=== PATIENT | female | born 1970 | race Caucasian/White ===

== ENCOUNTER 2020-07-12 12:01 | Outpatient (REF) | payer OTHER, SELFPAY | END 2020-07-12 12:02 | disposition home or self-care (01) | LOC: HO.LAB 12:01 | PROVIDERS: Visit Provider Hospitalist | DX: N39.0 Urinary tract infection, site not specified (principal); R30.0 Dysuria | CPT/HCPCS: 87086; 87088; 87186 ==

== ENCOUNTER 2020-10-20 10:01 | Outpatient (REF) | payer MEDICARE, SELFPAY ==
[2020-10-20 11:44] LABS: Hematocrit 39.6 % (37-47); Hemoglobin 13.1 g/dl (12.0-16.0); Mean Corpuscular HGB Conc 33.1 g/dl (31.0-35.0); Mean Corpuscular Hemoglobin 27.3 pg (27.0-33.0); Mean Corpuscular Volume 82.7 fL (80-98); Mean Platelet Volume 10.1 fL (9.4-12.3); Platelet Count 310 X10*3/uL (160-400); Red Blood Count 4.79 X10*6/uL (4.20-5.50); Red Cell Distribution Width 13.7 % (11.0-16.0); White Blood Count 7.2 X10*3/uL (4.8-10.8)
[2020-10-20 12:19] LABS: TSH reflex Free T4 1.37 uIU/mL (0.32-4.0)
[2020-10-20 12:24] LABS: Alanine Aminotransferase 26 U/L (0-31); Albumin Level 4.4 g/dL (3.5-5.0); Alkaline Phosphatase 83 U/L (39-117); Anion Gap 12 (12-20); Aspartate Amino Transferase 25 U/L (5-31); Bilirubin Direct 0.3 mg/dL (0.0-0.5); Bilirubin Total 1.1 mg/dL (0.0-1.0); Blood Urea Nitrogen 10 mg/dL (9-16); Calcium 9.1 mg/dL (8.4-10.2); Carbon Dioxide 31 mmol/L (22-29); Chloride 103 mmol/L (96-108); Cholesterol 203 mg/dL; Estimated Glomerular Filt Rate > 60; Glucose Fasting 109 mg/dL (60-99); HDL Cholesterol 55 mg/dL; LDL Cholesterol Calculated 127 mg/dl; Potassium 4.6 mmol/L (3.3-5.1); Sodium 141 mmol/L (135-145); Total Protein 6.9 g/dL (6.5-8.0); Triglycerides 105 mg/dL
[2020-10-20 12:55] LABS: Folate 14.7 ng/mL (> or = 4.0); Vitamin B12 810 pg/mL (200-900)
== END 2020-10-20 10:02 | disposition home or self-care (01) ==
LOC: HO.WFDLDS 10:01
PROVIDERS: Visit Provider Hospitalist
DX: Z00.00 Encounter for general adult medical examination without abnormal findings (principal); E53.8 Deficiency of other specified B group vitamins
CPT/HCPCS: 36415; 80048; 80061; 80076; 82607; 82746; 84443; 85027

== ENCOUNTER 2020-12-20 10:52 | Outpatient (REF) | payer MEDICARE, SELFPAY ==
[2020-12-24 15:12] LABS: Vitamin D 25-OH, D2 <4 ng/mL; Vitamin D 25-OH, D3 37 ng/mL; Vitamin D 25-OH, Total 37 ng/mL (30-100)
== END 2020-12-20 10:53 | disposition home or self-care (01) ==
LOC: HO.WFDLDS 10:52
PROVIDERS: Visit Provider Physician Assistant
DX: E55.9 Vitamin D deficiency, unspecified (principal); G89.29 Other chronic pain; M25.572 Pain in left ankle and joints of left foot; M25.512 Pain in left shoulder; M25.571 Pain in right ankle and joints of right foot; R82.998 Other abnormal findings in urine; E66.9 Obesity, unspecified
CPT/HCPCS: 36415; 82306; 87086

== ENCOUNTER 2021-02-13 15:36 | Outpatient (REF) | payer OTHER, SELFPAY ==
[2021-02-13 17:37] LABS: Alanine Aminotransferase 46 U/L (0-31); Albumin Level 4.2 g/dL (3.5-5.0); Alkaline Phosphatase 82 U/L (39-117); Anion Gap 13 (12-20); Aspartate Amino Transferase 42 U/L (5-31); Bilirubin Total 0.7 mg/dL (0.0-1.0); Blood Urea Nitrogen 8 mg/dL (9-16); C Reactive Protein 0.22 mg/dL (< or = 0.50); Calcium 9.6 mg/dL (8.4-10.2); Carbon Dioxide 29 mmol/L (22-29); Chloride 104 mmol/L (96-108); Estimated Glomerular Filt Rate > 60; Glucose Random 119 mg/dL (60-115); Potassium 4.3 mmol/L (3.3-5.1); Sodium 142 mmol/L (135-145); Total Protein 6.9 g/dL (6.5-8.0)
== END 2021-02-13 15:37 | disposition home or self-care (01) ==
LOC: HO.LAB 15:36
PROVIDERS: PCP Hospitalist; Referring Provider Hospitalist; Visit Provider Nurse Practitioner Family
DX: K50.90 Crohn's disease, unspecified, without complications (principal); K59.00 Constipation, unspecified; R79.89 Other specified abnormal findings of blood chemistry
CPT/HCPCS: 36415; 80053; 86140; 99202

== ENCOUNTER 2021-03-24 13:55 | Outpatient (REF) | payer OTHER, SELFPAY ==
[2021-03-24 16:01] LABS: C Reactive Protein 0.21 mg/dL (< or = 0.50); Gamma Glutamyl Transpeptidase 50 U/L (7-33); Lipase 20 U/L (8-78)
[2021-03-24 16:22] LABS: Ferritin 39 ng/mL (10-250)
[2021-03-27 03:28] LABS: HBc Num1 0.06 S/CO (0.00-0.79); HBsAGNum1 0.17 S/CO (0.00-0.99); Hepatitis B Core Antibody Nonreactive (Nonreactive); Hepatitis B Surface Antigen Negative (Negative); ~HepC Num1 0.06 S/CO (0.00-0.79); ~Hepatitis C Antibody Nonreactive (Nonreactive)
[2021-03-27 03:32] LABS: HBS Num1 0.24 mIU/mL (0-7.99); ~Hepatitis B Surface Antibody NONREACTIVE (Nonreactive)
[2021-03-27 12:36] LABS: Alpha Fetoprotein 2.1 ng/mL
[2021-03-28 15:57] LABS: Mitochondrial Antibodies NEGATIVE (NEGATIVE)
[2021-03-29 08:47] LABS: Hepatitis A Antibody IgM 0.14 Index (0-0.79); ~Hepatitis A Antibody IgM Nonreactive (Nonreactive)
[2021-03-30 10:47] LABS: Smooth Muscle Antibody <20 U (<20)
== END 2021-03-24 13:56 | disposition home or self-care (01) ==
LOC: HO.LNP 13:55
PROVIDERS: PCP Hospitalist; Visit Provider Nurse Practitioner Family
DX: R74.8 Abnormal levels of other serum enzymes (principal); K59.04 Chronic idiopathic constipation; R79.89 Other specified abnormal findings of blood chemistry; K58.9 Irritable bowel syndrome, unspecified; R94.5 Abnormal results of liver function studies; K21.9 Gastro-esophageal reflux disease without esophagitis
CPT/HCPCS: 82105; 82728; 82977; 83690; 86140; 86255; 86256; 86704; 86706; 86709; 86803; 87338; 87340; 99212

== ENCOUNTER 2021-04-18 07:17 | Outpatient (REF) | payer OTHER, SELFPAY ==
--- NOTE | ~2021-04-18 | US_ITS ---
EXAMINATION: US COMPLETE ABDOMEN WITH LIVER ELASTOGRAPHY CLINICAL INFORMATION: Abnormal liver function tests COMPARISON: Previous CT of the abdomen and pelvis and ultrasound of the abdomen July 2015 TECHNIQUE: Real-time imaging of the abdominal viscera. Noninvasive ultrasound liver fibrosis assessment is performed using Blayne ElastPQ point quantification shear wave elastography (pSWE) with a C5-2 MHz transducer. Multiple elastography samples are obtained. FINDINGS: PANCREAS: Not well visualized due to overlying bowel gas. ABDOMINAL AORTA: Not well visualized due to bowel gas. INFERIOR VENA CAVA: . Not well visualized due to bowel gas. LIVER: Liver echotexture is increased probably representing fatty infiltration. There are hypoechoic areas adjacent to the gallbladder and in the periportal region, a characteristic location of focal fatty sparing. No other focal liver lesion is seen. The liver is enlarged. There is no intrahepatic biliary duct dilatation. The right lobe measures 20 cm in length. The left lobe measures 11 cm in length. Portal flow is normal/hepatopedal Shear wave liver elastography median stiffness is 1.3 m/s (reference: normal median stiffness is 1.3 m/s or less). IQR/median stiffness to assess sampling precision is 0.15 (reference: good quality data set is IQR/median stiffness of 0.15 or less). GALLBLADDER: Normal. The gallbladder is physiologically distended without evidence of stones, sludge, polyps, wall thickening or pericholecystic fluid. COMMON BILE DUCT: Normal in caliber measuring 0.3 cm in diameter. RIGHT KIDNEY: There is a 2.6 cm cyst exophytic to the upper to midpole. No hydronephrosis. No renal calculi. The kidney measures 10 cm in maximum dimension. LEFT KIDNEY: Normal. No hydronephrosis. No renal calculi or focal parenchymal lesions. The kidney measures 11.4 cm in maximum dimension. SPLEEN: Normal. The spleen measures 10.4 cm in maximum dimension. FREE FLUID: None. US/US abdomen comp w elastography IMPRESSION: 1. Enlarged echogenic liver. Right renal cyst. Limited visualization of the pancreas, aorta and IVC. 2. Liver elastography: Adequate liver sampling. Normal liver stiffness. REFERENCE: Society of Radiologists in Ultrasound Liver Stiffness Thresholds (2019): LIVER STIFFNESS THRESHOLDS: *Liver Stiffness equal or less than 1.3 m/s: High probability of being normal. *Liver Stiffness less than 1.7 m/s: In the absence of other known clinical signs, rules out compensated advanced chronic liver disease. *Liver Stiffness 1.7-2.1 m/s: Suggestive of compensated advanced chronic liver disease but need further test for confirmation. *Liver Stiffness over 2.1 m/s: Rules in compensated advanced chronic liver disease. *Liver Stiffness over 2.4 m/s: Suggestive of clinically significant portal hypertension. QUALITY OF DATA SET: *IQR/Median value equal or less than 0.15 implies a quality data set. *IQR/Median value over 0.15 implies a poor quality data set. SIGNIFICANT CHANGE FROM PRIOR EXAM: Significant change if liver stiffness measurement is 10% or greater from prior exam. OTHER CONSIDERATIONS: The stage of liver fibrosis may be overestimated in the setting of acute hepatitis, liver inflammation, elevated liver function tests, hepatic vascular congestion, obstructive cholestasis, non-fasting state, and infiltrative diseases such as amyloidosis and lymphoma. In some patients with NAFLD, the liver stiffness thresholds for compensated advanced chronic liver disease may be lower. In causes other than viral hepatitis and NAFLD, liver stiffness thresholds are not well established.
== END 2021-04-18 07:18 | disposition home or self-care (01) ==
LOC: HO.US 07:17
PROVIDERS: PCP Hospitalist; Visit Provider Nurse Practitioner Family
DX: R79.89 Other specified abnormal findings of blood chemistry (principal)
CPT/HCPCS: 76705; 76981

== ENCOUNTER → 2021-04-28 13:08 | Outpatient (BNVA) | payer OTHER, SELFPAY | PROVIDERS: Referring Provider Hospitalist; Visit Provider Nurse Practitioner Family | DX: K59.04 Chronic idiopathic constipation (principal); R79.89 Other specified abnormal findings of blood chemistry | CPT/HCPCS: 99212 ==

== ENCOUNTER 2021-05-23 11:57 | Outpatient (REF) | payer OTHER, SELFPAY ==
[2021-05-23 14:25] LABS: Alanine Aminotransferase 54 U/L (0-31); Albumin Level 4.3 g/dL (3.5-5.0); Alkaline Phosphatase 79 U/L (39-117); Anion Gap 11 (12-20); Aspartate Amino Transferase 65 U/L (5-31); Bilirubin Total 0.8 mg/dL (0.0-1.0); Blood Urea Nitrogen 9 mg/dL (9-16); Calcium 9.9 mg/dL (8.4-10.2); Carbon Dioxide 29 mmol/L (22-29); Chloride 104 mmol/L (96-108); Estimated Glomerular Filt Rate > 60; Glucose Fasting 99 mg/dL (60-99); Iron 71 mcg/dL (30-160); Percent Iron Saturation 20 % (15-50); Potassium 4.3 mmol/L (3.3-5.1); Sodium 140 mmol/L (135-145); Total Iron Binding Capacity 357 mcg/dL (228-428); Unsaturated Iron Binding 286 ug/dL
[2021-05-23 14:47] LABS: Ferritin 64 ng/mL (10-250); TSH reflex Free T4 1.36 uIU/mL (0.32-4.0)
== END 2021-05-23 11:58 | disposition home or self-care (01) ==
LOC: HO.WFDLDS 11:57
PROVIDERS: Visit Provider Family Medicine
DX: Z00.00 Encounter for general adult medical examination without abnormal findings (principal); R42 Dizziness and giddiness; G25.81 Restless legs syndrome
CPT/HCPCS: 36415; 80053; 82728; 83540; 84443

== ENCOUNTER → 2021-06-28 12:57 | Outpatient (BNVA) | payer OTHER, SELFPAY | PROVIDERS: PCP Hospitalist; Visit Provider Nurse Practitioner Family | CPT/HCPCS: Q3014 ==

== ENCOUNTER 2021-08-08 17:08 | Outpatient (REF) | payer OTHER, SELFPAY ==
[2021-08-08 18:57] LABS: Influenza A PCR NEGATIVE (Negative); Influenza B PCR NEGATIVE (Negative); Resp Syncy Virus RNA Qual PCR NEGATIVE (Negative); SARS COV2 PCR INHOUSE POSITIVE (Negative)
== END 2021-08-08 17:09 | disposition home or self-care (01) ==
LOC: HO.LAB 17:08
PROVIDERS: Visit Provider Hospitalist
DX: B34.9 Viral infection, unspecified (principal); Z20.822 Contact with and (suspected) exposure to COVID-19
CPT/HCPCS: 0241U

== ENCOUNTER 2021-09-06 11:05 | Outpatient (REF) | payer OTHER, SELFPAY ==
[2021-09-06 14:11] LABS: Hematocrit 42.4 % (37.0-47.0); Mean Corpuscular Hemoglobin 27.9 pg (27.0-33.0); Mean Corpuscular Volume 84.5 fL (80.0-98.0); Platelet Count 305 X10*3/uL (160-400); Red Blood Count 5.02 X10*6/uL (4.20-5.50); Red Cell Distribution Width 13.9 % (11.0-16.0); White Blood Count 6.5 X10*3/uL (4.8-10.8)
[2021-09-06 14:42] LABS: Alanine Aminotransferase 43 U/L (0-31); Albumin Level 4.2 g/dL (3.5-5.0); Alkaline Phosphatase 75 U/L (39-117); Anion Gap 10 (12-20); Aspartate Amino Transferase 43 U/L (5-31); Bilirubin Total 0.8 mg/dL (0.0-1.0); Blood Urea Nitrogen 11 mg/dL (9-16); Calcium 9.8 mg/dL (8.4-10.2); Carbon Dioxide 31 mmol/L (22-29); Chloride 103 mmol/L (96-108); Cholesterol 192 mg/dL; Estimated Glomerular Filt Rate > 60; Glucose Fasting 103 mg/dL (60-99); HDL Cholesterol 48 mg/dL; LDL Cholesterol Calculated 121 mg/dl; Potassium 4.3 mmol/L (3.3-5.1); Sodium 140 mmol/L (135-145); Total Protein 7.1 g/dL (6.5-8.0); Triglycerides 118 mg/dL
[2021-09-06 15:04] LABS: TSH reflex Free T4 1.57 uIU/mL (0.32-4.0)
== END 2021-09-06 11:06 | disposition home or self-care (01) ==
LOC: HO.WFDLDS 11:05
PROVIDERS: Visit Provider Hospitalist
DX: Z00.00 Encounter for general adult medical examination without abnormal findings (principal); B34.9 Viral infection, unspecified
CPT/HCPCS: 36415; 80053; 80061; 84443; 85027

== ENCOUNTER 2021-10-02 21:07 | Emergency (ER) | payer OTHER, SELFPAY ==
--- NOTE | ~2021-10-02 | CT_ITS ---
EXAMINATION: CT ABDOMEN AND PELVIS WITHOUT CONTRAST CLINICAL INFORMATION: Flank pain COMPARISON: 07/12/2015 TECHNIQUE: Multidetector volumetric imaging was performed from the superior aspect of the liver through the pubic symphysis. Sagittal and coronal reformatted images were obtained on the technologist's workstation. This CT examination was performed using dose optimization techniques as appropriate, variously including the following: *Automated exposure control *Adjustment of mA and/or kV according to patient size (this includes techniques or standardized protocols for targeted exams where dose is matched to indication/reason for exam; i.e. extremities or head) *Use of iterative reconstruction technique DLP: 771 mGy-cm FINDINGS: LUNG BASES: The visualized lung bases are unremarkable. LIVER, GALLBLADDER, AND BILIARY TREE: The liver is normal in size, shape, and attenuation. No focal hepatic lesion or biliary ductal dilatation is present. The gallbladder is unremarkable. PANCREAS: Partial fatty atrophy is noted. SPLEEN: Unremarkable. ADRENAL GLANDS: Unremarkable. KIDNEYS AND URETERS: The kidneys are normal in size, shape, and attenuation. No hydronephrosis, hydroureter, or calculi seen. No perinephric stranding. BLADDER: Unremarkable. GASTROINTESTINAL TRACT: Colonic diverticulosis is noted. The small and large bowel are otherwise unremarkable without evidence of obstruction or pericolonic inflammatory change. The appendix is unremarkable. No free fluid or free air is seen. ABDOMINAL WALL: No significant hernia is appreciated. LYMPH NODES: Normal. VASCULAR: Mild scattered atherosclerotic calcifications are present. PELVIC VISCERA: Unremarkable. OSSEOUS STRUCTURES: Syndesmophytes in the visualized spine are suspicious for sequelae of ankylosing spondylitis. CT/CT abdomen pelvis wo con IMPRESSION: No acute findings identified in the abdomen/pelvis. Colonic diverticulosis. Fleischner guidelines were followed.
--- NOTE | ~2021-10-02 | CT_ITS ---
EXAMINATION: CT HEAD WITHOUT CONTRAST CLINICAL INFORMATION: Worst headache of life COMPARISON: None TECHNIQUE: Contiguous axial imaging was performed from the skull base to vertex without intravenous administration of contrast. This CT examination was performed using dose optimization techniques as appropriate, variously including the following: *Automated exposure control *Adjustment of mA and/or kV according to patient size (this includes techniques or standardized protocols for targeted exams where dose is matched to indication/reason for exam; i.e. extremities or head) *Use of iterative reconstruction technique DLP: 631 mGy-cm FINDINGS: There is no evidence of acute intracranial hemorrhage or territorial infarction. No abnormal mass effect or midline shift is seen. Burden to white matter differentiation is well preserved. No extra-axial fluid collections are identified. The ventricles are normal in size. There is no abnormal attenuation within the brain parenchyma. The osseous structures and soft tissues are normal. There is partial opacification of the left sphenoid sinus. The mastoid air cells are well-aerated. CT/CT head/brain wo con IMPRESSION: No acute intracranial pathology.
[2021-10-02 21:20] VITALS: BP 142/94; BP 146/80; PULSE 92; PULSE 96; RESP 18; TEMP 37.1; O2SAT 95; O2SAT 98; BMI 35.6
--- NOTE | 2021-10-02 23:17 | ED_ITS ---
HPI - Back Pain/Injury General Chief Complaint: Back Pain/Injury Stated Complaint: back pain Time Seen by Provider: 10/02/21 23:16 Source: patient and EMS Mode of arrival: EMS Limitations: other (Patient is a poor historian.) History of Present Illness HPI Narrative: This is a 51-year-old female past medical history significant for restless leg syndrome, vitamin D deficiency, vitamin B12 deficiency, psoriasis, frequent UTIs presenting to the emergency department with right-sided flank pain, pleauritic chest pain and headache X1 week. Patient tells me that she is having right- sided flank pain that at times radiates to her right abdomen, she tells me that the pain is constant in nature, and fluctuates in intensity. She also complains of pain in her chest/lungs with inspiration, better with expiration. She also reports a headache with associated ?fogginess ? no vision changes, no dizziness. Patient tells me she has not had a headache like this before. Patient denies head trauma, patient denies being on blood thinners. She tells me that this all started suddenly about a week ago and has been lingering ever since.Patient denies numbness, tingling, weakness, sensory motor deficits, saddle paresthe christopher, urinary/bowel incontinence/retention, shortness of breath, fevers, chills, nausea, vomiting, urinary frequency, urgency, dysuria. I asked patient why she decided to come in today she tells me that she called the ambulance because her heart was feeling funny, and her head was foggy. MD elicited complaint: back pain and other (Pleuritic chest pain, headache) Onset (ago): week(s) (1) Timing: constant Severity: severe Pain scale (0-10): 10 Similar Symptoms Previously: No Quality: stabbing Location: right flank Radiation: none Exacerbating factors: none Relieving factors: none Associated symptoms: denies other symptoms Work related injury: No Related Data Home Medications Medication Instructions Recorded Confirmed azelastine 137 mcg (0.1 %) nasal 2 spray INTRANASAL BID 07/12/20 08/31/21 spray aerosol calcium carbonate 168 mg calcium 168 mg PO TID 07/12/20 08/31/21 (420 mg) chewable tablet (Alcalak) montelukast 10 mg tablet 10 mg PO DAILY 07/12/20 08/31/21 omega 9-hwy-ffd-fish oil 60 mg-90 1 cap PO DAILY 07/12/20 08/31/21 mg-500 mg capsule (Fish Oil) pravastatin 80 mg tablet 80 mg PO BEDTIME 07/12/20 08/31/21 lamotrigine 100 mg tablet 100 mg PO DAILY 10/19/20 08/31/21 loratadine 10 mg tablet 10 mg PO DAILY 10/19/20 08/31/21 lorazepam 0.5 mg tablet 0.5 mg PO BID PRN 10/19/20 08/31/21 melatonin 3 mg tablet 3 - 6 mg PO BEDTIME PRN 10/19/20 08/31/21 tizanidine 2 mg capsule 2 mg PO TID PRN 10/19/20 08/31/21 fluticasone 500 mcg-salmeterol 50 1 ea INHALATION BID 12/20/20 08/31/21 mcg/dose blistr powdr for inhalation ipratropium bromide 17 0 mcg INHALATION 12/20/20 08/31/21 mcg/actuation HFA aerosol inhaler ipratropium bromide 42 mcg (0.06 INTRANASAL BID 12/20/20 08/31/21 %) nasal spray cranberry extract 250 mg capsule 250 mg PO DAILY 03/31/21 08/31/21 Previous Rx's Medication Instructions Recorded humidifiers #1 ea 10/21/20 miscellaneous medical supply 1 ea MISCELLANEOUS .PRN #1 ea 10/21/20 sennosides 8.6 mg tablet (Natural 8.6 mg PO BEDTIME PRN #30 tab 03/24/21 Senna Laxative) clotrimazole 1 % vaginal cream 1 appful VAGINAL BEDTIME 7 Days 03/31/21 #45 g mesalamine 1.2 gram tablet,delayed 2.4 g PO DAILY 90 Days #180 tab 04/28/21 release (Lialda) albuterol sulfate 2.5 mg (3 mL) INHALATION Q4-6H PRN 05/23/21 30 Days #180 ml albuterol sulfate 90 mcg/actuation 2 puff INHALATION QID PRN #6.7 g 05/23/21 aerosol inhaler epinephrine 0.3 mg/0.3 mL 0.3 mg (0.3 mL) IM Q10M PRN #2 ea 05/23/21 injection, auto-injector (EpiPen 2-Isma) gabapentin 300 mg capsule 300 mg PO BEDTIME 30 Days #30 cap 05/23/21 omeprazole 40 mg capsule,delayed 40 mg PO DAILY 90 Days #90 cap 05/31/21 release budesonide 32 mcg/actuation nasal 2 spray INTRANASAL DAILY 90 Days 07/06/21 spray #3 inhaler docusate sodium 100 mg capsule 100 mg PO BID 90 Days #180 cap 07/19/21 cholecalciferol (vitamin D3) 50 50 mcg PO DAILY 90 Days #90 tab 09/11/21 mcg (2,000 unit) tablet cyanocobalamin (vitamin B-12) 1,000 mcg PO DAILY 30 Days #90 tab 09/11/21 1,000 mcg tablet Allergies Allergy/AdvReac Type Severity Reaction Status Date / Time Penicillins [PENICILLINS] Allergy Severe ANAPHYLAXIS Verified 10/02/21 21:20 simvastatin Allergy Mild weird Verified 10/02/21 21:20 feeling ibuprofen AdvReac Intermediate stomach Verified 10/02/21 21:20 upset, irritates Bryant's Review of Systems Review of Systems: Constitutional : No Weight loss, No Fever, No Chills, No Fatigue, No Malaise ENT/Mouth : No sore throat, No Rhinorrhea Eyes: No Eye Pain, No Swelling, No Redness Cardiovascular : + Chest Pain, No SOB, No Dyspnea on Exertion, No Orthopnea, No Edema, No Palpitations Respiratory : No Cough, No Sputum, No Wheezing Gastrointestinal : No Nausea, No Vomiting, No Diarrhea, No Constipation, + abdominal Pain, No Hematochezia, No Melena Genitourinary : No Dysuria, No Urinary Frequency, No Hematuria, Musculoskeletal : No joint pain, No Myalgias, No Joint Swelling Skin : No Skin Lesions, No rash Neuro : No Weakness, No Numbness, No Dizziness, Headache Psych : No Anxiety/Panic, No Depression All other systems reviewed and are negative Yes all other systems are reviewed and are negative [facility] Past Medical History Attestation statement: The following information was validated with the patient. Source: old records reviewed and nursing notes reviewed Medical History Dysuria Unspecified asthma, uncomplicated Surgical History No pertinent past surgical history Family History Family History Father Suicide Mother Hypertension Diabetes Paternal Grandmother Stroke Brother In good health Sister In good health Social History Social History Housing: Other Housing Other:: mobile home Alcohol intake: current Alcohol intake frequency: does not drink Patient Tobacco Use Status: Never used Tobacco e-Cigarette/Vaping Use: Never Used Second Hand Smoke Exposure: Yes Use of substances other than those prescribed or required for medical reasons: No Advance Directives: No service: No Current occupational status: disabled Cognitive needs: No Hearing needs: No Vision needs: No Physical Exam Vital Signs: Vital Signs: Last Vital Signs Temp 98.7 F 10/02/21 21:20 Pulse 84 10/02/21 23:41 Resp 16 10/02/21 23:41 BP 138/80 10/02/21 23:41 Pulse Ox 95 10/02/21 21:20 BMI result Body Mass Index 35.6 VSS Appearance: Alert.? Oriented X3.? No acute distress.? Head: Normocephalic, atraumatic, no step-offs or deformities Eyes: Pupils equal, round and reactive to light.? ENT: Pharynx normal.? Neck: Normal inspection.? Neck supple.? CVS: Normal heart rate and rhythm.? Pulses normal.? Respiratory: No respiratory distress.? Breath sounds normal.? Abdomen: Soft and nontender.? Skin: Skin warm and dry.? Normal skin color.? Normal skin turgor.? Extremities: No lower extremity edema.? No calf ttp. 5/5 strength to bilateral upper and lower extremities Back: No midline tenderness, no C-spine tenderness, full range of motion, no CVA tenderness bilaterally Neuro: Oriented X 3.? No motor deficit.? No sensory deficit. CN 2-12 intact . Normal [id number]-[id number], [id number], normal tandem gait. Course Reevaluation(s) Reevaluation #1: CBC within normal limits. D-dimer negative, unlikely this is a PE. Chemistry with no acute electrolyte abnormalities, transaminases noted to be chronically elevated. Troponin negative less than 3, unlikely ACS. EKG pending at this time. Urine toxicology negative UA with no acute infection. COVID negative. This is likely a muscle strain of the lower back. Unlikely PE, ACS, kidney stones, UTI. Patient will be discharged home on muscle relaxers, lidocaine patch. She should follow-up with her PCP or return with new or worsening symptoms. Time: 00:11 Reevaluation #2: EKG nonischemic. CT of the head pending. Time: 00:39 Reevaluation #3: CT of the head negative. At this time likely a right lumbar muscle strain. Will discharge patient home on cyclobenzaprine and lidocaine patches. Workup negative for ICH, CVA, ACS. Time: 00:41 MDM - Back Pain/Injury MDM Narrative Medical decision making narrative: 2334 51 yo f presents with headache, pleuritic chest pain, right flank pain radiating to the abdomen x1 week. Physical examination benign Patient's history and physical examination not consistent with ACS, PE, CVA, posterior infarct. Plan basic labs, cardiac workup. Medical Records Attestation: I reviewed the patient's medical records. Lab Data Attestation: I reviewed the patient's lab results. Result diagrams: 10/02/21 23:26 10/02/21 23:26 Labs: Lab Results 10/02/21 10/02/21 10/02/21 Range/Units 23:26 23:26 23:26 WBC 7.1 (4.8-10.8) X10*3/uL RBC 4.82 (4.20-5.50) X10*6/uL Hgb 13.7 (12.0-16.0) g/dl Hct 40.7 (37.0-47.0) % MCV 84.4 (80.0-98.0) fL MCH 28.4 (27.0-33.0) pg MCHC 33.7 (31.0-35.0) g/dl RDW 13.7 (11.0-16.0) % Plt Count 316 (160-400) X10*3/uL MPV 9.4 (9.4-12.3) fL Absolute Nucleated RBC 0.000 (0.0-0.012) X10*3/uL Nucleated RBC % (auto) 0.0 (0.0-0.2) /100WBC D-Dimer High Sensitivty NG/ML Sodium 140 (135-145) mmol/L Potassium 4.1 (3.3-5.1) mmol/L Chloride 104 (96-108) mmol/L Carbon Dioxide 26 (22-29) mmol/L Anion Gap 14 (12-20) BUN 9 (9-16) mg/dL Creatinine 0.71 (0.5-1.4) mg/dL Estim Creat Clear Calc 96.8 Estimated GFR > 60 Random Glucose 102 (60-115) mg/dL Calcium 9.5 (8.4-10.2) mg/dL Total Bilirubin 0.4 (0.0-1.0) mg/dL AST 53 H (5-31) U/L ALT 52 H (0-31) U/L Alkaline Phosphatase 79 (39-117) U/L Troponin I High Sens < 3.5 (<3.5-17.0) ng/L Total Protein 7.2 (6.5-8.0) g/dL Albumin 4.1 (3.5-5.0) g/dL Urine Color Urine Appearance Urine pH (5.0-8.0) Ur Specific [place] (1.005-1.025) Urine Protein (NEG-TRACE) MG/DL Urine Glucose (UA) (NEG) MG/DL Urine Ketones (NEG) MG/DL Urine Blood (NEG) Urine Nitrite (NEG) Ur Leukocyte Esterase (NEG) Urine RBC (0) /HPF Urine WBC (0-4) /HPF Ur Squamous Epith Cells /LPF Urine Bacteria /LPF Urine Opiates Screen (Not Detect) Urine Fentanyl Screen (Not Detect) Ur Barbiturates Screen (Not Detect) Ur Phencyclidine Scrn (Not Detect) Ur Amphetamines Screen (Not Detect) U Benzodiazepines Scrn (Not Detect) Urine Cocaine Screen (Not Detect) U Marijuana (THC) Screen (Not Detect) 10/02/21 10/02/21 10/02/21 Range/Units 23:26 23:28 23:28 WBC (4.8-10.8) X10*3/uL RBC (4.20-5.50) X10*6/uL Hgb (12.0-16.0) g/dl Hct (37.0-47.0) % MCV (80.0-98.0) fL MCH (27.0-33.0) pg MCHC (31.0-35.0) g/dl RDW (11.0-16.0) % Plt Count (160-400) X10*3/uL MPV (9.4-12.3) fL Absolute Nucleated RBC (0.0-0.012) X10*3/uL Nucleated RBC % (auto) (0.0-0.2) /100WBC D-Dimer High Sensitivty < 150 NG/ML Sodium (135-145) mmol/L Potassium (3.3-5.1) mmol/L Chloride (96-108) mmol/L Carbon Dioxide (22-29) mmol/L Anion Gap (12-20) BUN (9-16) mg/dL Creatinine (0.5-1.4) mg/dL Estim Creat Clear Calc Estimated GFR Random Glucose (60-115) mg/dL Calcium (8.4-10.2) mg/dL Total Bilirubin (0.0-1.0) mg/dL AST (5-31) U/L ALT (0-31) U/L Alkaline Phosphatase (39-117) U/L Troponin I High Sens (<3.5-17.0) ng/L Total Protein (6.5-8.0) g/dL Albumin (3.5-5.0) g/dL Urine Color YELLOW Urine Appearance CLEAR Urine pH 6.0 (5.0-8.0) Ur Specific [place] 1.010 (1.005-1.025) Urine Protein NEG (NEG-TRACE) MG/DL Urine Glucose (UA) NEG (NEG) MG/DL Urine Ketones NEG (NEG) MG/DL Urine Blood NEG (NEG) Urine Nitrite NEG (NEG) Ur Leukocyte Esterase 1+ H (NEG) Urine RBC 1-4 (0) /HPF Urine WBC 1-4 (0-4) /HPF Ur Squamous Epith Cells 1+ /LPF Urine Bacteria 1+ /LPF Urine Opiates Screen Not Detected (Not Detect) Urine Fentanyl Screen Not Detected (Not Detect) Ur Barbiturates Screen Not Detected (Not Detect) Ur Phencyclidine Scrn Not Detected (Not Detect) Ur Amphetamines Screen Not Detected (Not Detect) U Benzodiazepines Scrn Not Detected (Not Detect) Urine Cocaine Screen Not Detected (Not Detect) U Marijuana (THC) Screen Not Detected (Not Detect) ECG Data Attestation: I personally reviewed and interpreted this ECG as follows: ECG interpretation date: 10/03/21 ECG interpretation time: 00:37 Prior ECG tracings: available for review Interpretation: Ventricular rate of 83, MO normal, QRS normal, QT/QTC normal. EKG shows normal sinus rhythm, no ST elevations or inversions concerning for ischemia. No significant changes when compared to EKG from August 2015. Critical Care Time Critical Care Time Critical Care Time: No Discharge Plan Discharge Clinical Impression: Back strain, Headache, Chest pain not due to acute coronary syndrome Patient Disposition: Home, Self-Care Instructions: Acute Headache (DC), Back Pain (ED), Chest Wall Pain (ED) Additional Instructions: Take your medications as prescribed. If you were prescribed antibiotics today, it is important that you take your medication to their entirety, do not skip any doses, do not finish them early. Follow-up with your primary care provider this week. Return to the emergency department with new or worsening symptoms. In case of emergency call 911 Prescriptions: No Action miscellaneous medical supply Misc 1 ea miscellaneous .PRN Qty: 1 0RF (DME) humidifiers Misc See Rx Instructions .ROUTE .MEDSUPPLY Qty: 1 0RF Rx Instructions: As directed docusate sodium 100 mg capsule 100 mg PO BID 90 Days Qty: 180 1RF cholecalciferol (vitamin D3) 50 mcg (2,000 unit) tablet 50 mcg PO DAILY 90 Days Qty: 90 3RF cyanocobalamin (vitamin B-12) 1,000 mcg tablet 1,000 mcg PO DAILY 30 Days Qty: 90 3RF azelastine 137 mcg (0.1 %) aerosol,spray 2 spray intranasal BID 0RF pravastatin 80 mg tablet 80 mg PO BEDTIME 0RF montelukast 10 mg tablet 10 mg PO DAILY 0RF omega 1-nhq-iok-fish oil [Fish Oil] 60-90-500 mg capsule 1 cap PO DAILY 0RF Alcalak 168 mg calcium (420 mg) tablet,chewable 168 mg PO TID 0RF lorazepam 0.5 mg tablet 0.5 mg PO BID PRN (Reason: anxiety) 0RF tizanidine 2 mg capsule 2 mg PO TID PRN (Reason: muscle spasm) 0RF lamotrigine 100 mg tablet 100 mg PO DAILY 0RF melatonin 3 mg tablet 3 - 6 mg PO BEDTIME PRN (Reason: insomnia) 0RF loratadine 10 mg tablet 10 mg PO DAILY 0RF fluticasone propion-salmeterol 500-50 mcg/dose blister with device 1 ea inhalation BID 0RF ipratropium bromide 42 mcg (0.06 %) spray,non-aerosol intranasal BID 0RF Atrovent HFA 17 mcg/actuation HFA aerosol inhaler 0 mcg inhalation 0RF cranberry extract 250 mg capsule 250 mg PO DAILY 0RF Rx Instructions: administer with a meal clotrimazole 1 % cream 1 appful vaginal BEDTIME 7 Days Qty: 45 0RF albuterol sulfate 2.5 mg /3 mL (0.083 %) solution for nebulization 2.5 mg inhalation Q4-6H PRN (Reason: shortness of breath or wheezing) 30 Days Qty: 180 3RF gabapentin 300 mg capsule 300 mg PO BEDTIME 30 Days Qty: 30 1RF albuterol sulfate 90 mcg/actuation HFA aerosol inhaler 2 puff inhalation QID PRN (Reason: wheezing) Qty: 6.7 4RF epinephrine [EpiPen 2-Isma] 0.3 mg/0.3 mL auto-injector 0.3 mg IM Q10M PRN (Reason: anaphylaxis) Qty: 2 2RF Rx Instructions: for 2 doses omeprazole 40 mg capsule,delayed release(DR/EC) 40 mg PO DAILY 90 Days Qty: 90 1RF budesonide 32 mcg/actuation spray,non-aerosol 2 spray intranasal DAILY 90 Days Qty: 3 2RF sennosides [Natural Senna Laxative] 8.6 mg tablet 8.6 mg PO BEDTIME PRN (Reason: constipation) Qty: 30 1RF mesalamine [Lialda] 1.2 gram tablet,delayed release (DR/EC) 2.4 g PO DAILY 90 Days Qty: 180 2RF Referrals: Jordana Arvizu NP [Primary Care Provider] - 2 days Stand Alone Forms: Work/School Release
--- NOTE | 2021-10-02 23:34 | ECG_ITS ---
Test Reason : PASS OUT Blood Pressure : / mmHG Vent. Rate : 083 BPM Atrial Rate : 083 BPM P-R Int : 168 ms QRS Dur : 098 ms QT Int : 406 ms P-R-T Axes : 033 015 035 degrees QTc Int : 477 ms Normal sinus rhythm Normal ECG When compared with ECG of 29-AUG-2015 14:39, No significant change was found Referred By: Daniel Baker Electronically Signed By:Turner Sandhu
--- NOTE | 2021-10-02 23:35 | PC.NURSE ---
pt a&o, no sob at this time. pt denies any urination discomfort, denies falls. reports having pain in right lower back that radiated to her head. provider into assess pt. Labs and Iv placed. Ua collected and sent.
[2021-10-02 23:40] LABS: Hematocrit 40.7 % (37.0-47.0); Hemoglobin 13.7 g/dl (12.0-16.0); Mean Corpuscular HGB Conc 33.7 g/dl (31.0-35.0); Mean Corpuscular Hemoglobin 28.4 pg (27.0-33.0); Mean Corpuscular Volume 84.4 fL (80.0-98.0); Mean Platelet Volume 9.4 fL (9.4-12.3); Platelet Count 316 X10*3/uL (160-400); Red Blood Count 4.82 X10*6/uL (4.20-5.50); Red Cell Distribution Width 13.7 % (11.0-16.0); White Blood Count 7.1 X10*3/uL (4.8-10.8)
[2021-10-02 23:41] VITALS: BP 138/80; PULSE 84; RESP 16
[2021-10-02 23:45] LABS: Appearance Urine CLEAR; Color Urine YELLOW; Glucose Urine UA NEG (NEG); Leukocyte Esterase Urine 1+ (NEG); Nitrite Urine NEG (NEG); UACC Culture Trigger YES; Urine Blood NEG (NEG); Urine Ketones NEG (NEG); Urine Protein NEG (NEG-TRACE)
[2021-10-02 23:51] LABS: D Dimer High Sensitivity < 150 NG/ML
[2021-10-02 23:51] LABS: Bacteria Urine 1+ /LPF; Squamous Epithelial Cell Urine 1+ /LPF; UACC CULT YES
[2021-10-02 23:57] LABS: Amphetamine Screen Urine Not Detected (Not Detect); Barbiturates, Urine Not Detected (Not Detect); Benzodiazepines Screen Urine Not Detected (Not Detect); Cannabinoid Screen Urine Not Detected (Not Detect); Cocaine Screen Urine Not Detected (Not Detect); Fentanyl, urine Not Detected (Not Detect); Opiate Screen Urine Not Detected (Not Detect); Phencyclidine Screen Urine Not Detected (Not Detect)
[2021-10-02 23:59] LABS: Alanine Aminotransferase 52 U/L (0-31); Albumin Level 4.1 g/dL (3.5-5.0); Alkaline Phosphatase 79 U/L (39-117); Anion Gap 14 (12-20); Aspartate Amino Transferase 53 U/L (5-31); Bilirubin Total 0.4 mg/dL (0.0-1.0); Blood Urea Nitrogen 9 mg/dL (9-16); Calcium 9.5 mg/dL (8.4-10.2); Carbon Dioxide 26 mmol/L (22-29); Chloride 104 mmol/L (96-108); Creatinine Clr Calc Pharmacy 96.8; Estimated Glomerular Filt Rate > 60; Glucose Random 102 mg/dL (60-115); Potassium 4.1 mmol/L (3.3-5.1); Sodium 140 mmol/L (135-145); Total Protein 7.2 g/dL (6.5-8.0)
[2021-10-03] LABS: Troponin-I High Sensitivity < 3.5 ng/L (<3.5-17.0)
--- NOTE | 2021-10-03 01:01 | PC.NURSE ---
pt oob ambulating to CT. pt able to ambulate with a steady gait.
[2021-10-03 02:11] VITALS: RESP 16
== END 2021-10-03 02:12 | disposition home or self-care (01) ==
PROVIDERS: Physician Assistant; Emergency Provider Internal Medicine; PCP Hospitalist
DX: S39.012A Strain of muscle, fascia and tendon of lower back, initial encounter (principal); X58.XXXA Exposure to other specified factors, initial encounter; R07.89 Other chest pain; R51.9 Headache, unspecified; R10.9 Unspecified abdominal pain; Y93.9 Activity, unspecified; Y92.9 Unspecified place or not applicable; Y99.9 Unspecified external cause status; Z86.16 Personal history of COVID-19; Z79.02 Long term (current) use of antithrombotics/antiplatelets; Z79.899 Other long term (current) drug therapy
CPT/HCPCS: 36415; 70450; 74176; 80053; 80307; 81001; 84484; 85027; 85379; 87086; 93005; 99284

== ENCOUNTER → 2021-10-24 14:22 | Outpatient (BNVA) | payer OTHER, SELFPAY | PROVIDERS: PCP Hospitalist; Referring Provider Hospitalist; Visit Provider Nurse Practitioner Family | DX: Z01.818 Encounter for other preprocedural examination (principal); K50.10 Crohn's disease of large intestine without complications; K59.04 Chronic idiopathic constipation | CPT/HCPCS: 99212 ==

== ENCOUNTER 2022-03-01 09:53 | Outpatient (REF) | payer OTHER, SELFPAY ==
[2022-03-01 11:44] LABS: MANUAL DIFF FLAG NO
[2022-03-01 11:50] LABS: Basophils Absolute Auto 0.1 X10*3/uL (0.0-0.2); Basophils Percent Auto 0.9 % (0-2); Eosinophils Absolute Auto 0.1 X10*3/uL (0.0-0.4); Eosinophils Percent Auto 1.9 % (0-4); Hematocrit 41.2 % (37.0-47.0); Hemoglobin 13.7 g/dl (12.0-16.0); Imm Gran Abs Auto 0.02 X10*3/uL (0.00-0.03); Imm Gran Pct Auto 0.3 % (0.0-0.4); Lymphocytes Percent Auto 28.8 % (20-40); Mean Corpuscular HGB Conc 33.3 g/dl (31.0-35.0); Mean Corpuscular Hemoglobin 28.2 pg (27.0-33.0); Mean Corpuscular Volume 84.8 fL (80.0-98.0); Mean Platelet Volume 9.8 fL (9.4-12.3); Monocytes Absolute Auto 0.6 X10*3/uL (0.1-1.2); Monocytes Percent Auto 9.1 % (2-11); Neutrophils Absolute Auto 4.1 x10*3/uL (2.0-8.3); Platelet Count 303 X10*3/uL (160-400); Red Blood Count 4.86 X10*6/uL (4.20-5.50); Red Cell Distribution Width 13.4 % (11.0-16.0)
[2022-03-01 12:15] LABS: D Dimer High Sensitivity < 150 NG/ML
[2022-03-01 12:21] LABS: Alanine Aminotransferase 66 U/L (0-31); Albumin Level 4.3 g/dL (3.5-5.0); Alkaline Phosphatase 82 U/L (39-117); Anion Gap 13 (12-20); Aspartate Amino Transferase 48 U/L (5-31); Bilirubin Total 0.7 mg/dL (0.0-1.0); Blood Urea Nitrogen 12 mg/dL (9-16); Calcium 9.4 mg/dL (8.4-10.2); Carbon Dioxide 27 mmol/L (22-29); Chloride 102 mmol/L (96-108); Estimated Glomerular Filt Rate > 60; Glucose Random 102 mg/dL (60-115); Potassium 4.3 mmol/L (3.3-5.1); Sodium 138 mmol/L (135-145)
[2022-03-01 12:41] LABS: TSH reflex Free T4 2.29 uIU/mL (0.32-4.0)
== END 2022-03-01 09:54 | disposition home or self-care (01) ==
LOC: HO.WFDLDS 09:53
PROVIDERS: Visit Provider Family Medicine
DX: Z00.00 Encounter for general adult medical examination without abnormal findings (principal); R07.89 Other chest pain; R00.2 Palpitations; R74.8 Abnormal levels of other serum enzymes
CPT/HCPCS: 36415; 80053; 84443; 85025; 85379

== ENCOUNTER → 2022-03-16 11:51 | Outpatient (REF) | payer OTHER, SELFPAY ==
--- NOTE | 2022-03-16 11:53 | HM_ITS ---
* Total monitoring time 2 days and 14 hours. * Underlying rhythm is sinus. * Average rate 89/Min. Range 64 to 128/Min. * About 18% of the time, rate > 100/Min. * No atrial fibrillation or flutter or AV blocks or pauses. * No significant ectopy or other arrhythmias. * No patient events. MTDD
== END ==
LOC: HO.CARD 11:51
PROVIDERS: PCP Family Medicine
DX: R07.89 Other chest pain (principal); R00.2 Palpitations
CPT/HCPCS: 93242

== ENCOUNTER 2022-03-19 08:59 | Outpatient (REF) | payer OTHER, SELFPAY ==
--- NOTE | ~2022-03-19 | XR_ITS ---
EXAMINATION: XR CHEST CLINICAL INFORMATION: Chest pain COMPARISON: None TECHNIQUE: 2 views of the chest were obtained. FINDINGS: The cardiac and mediastinal contours are normal. The lung volumes are low. The lungs are clear. There is no pleural effusion or pneumothorax. There is curvature of the thoracic spine to the right and mild degenerative changes of the spine. XR/XR chest 2V IMPRESSION: No evidence for acute disease in the chest.
== END 2022-03-19 09:00 | disposition home or self-care (01) ==
LOC: HO.XRAY 08:59
PROVIDERS: PCP Family Medicine; Visit Provider Family Medicine
DX: R07.89 Other chest pain (principal)
CPT/HCPCS: 71046

== ENCOUNTER → 2022-04-10 13:42 | Outpatient (BNVA) | payer OTHER, SELFPAY | PROVIDERS: PCP Family Medicine; Visit Provider Nurse Practitioner Family | DX: Z12.11 Encounter for screening for malignant neoplasm of colon (principal); K50.10 Crohn's disease of large intestine without complications; K21.9 Gastro-esophageal reflux disease without esophagitis; K59.04 Chronic idiopathic constipation | CPT/HCPCS: 99212 ==

== ENCOUNTER → 2022-05-01 13:42 | Outpatient (BNVA) | payer OTHER, SELFPAY | PROVIDERS: PCP Family Medicine; Referring Provider Family Medicine; Visit Provider Internal Medicine | DX: R00.2 Palpitations (principal); R00.0 Tachycardia, unspecified | CPT/HCPCS: 99202 ==

== ENCOUNTER 2022-05-09 10:12 | Outpatient (REF) | payer OTHER, SELFPAY | END 2022-05-09 10:13 | disposition home or self-care (01) | LOC: HO.LAB 10:12 | PROVIDERS: PCP Family Medicine; Visit Provider Physician Assistant | DX: Z13.89 Encounter for screening for other disorder (principal) ==

== ENCOUNTER → 2022-05-22 12:27 | Outpatient (REF) | payer OTHER, SELFPAY ==
--- NOTE | 2022-05-22 12:30 | CA_ITS ---
Transthoracic Echocardiogram Patient (Last, First, Middle): Josselin Harrington E Gender: Female Date of : 1970 Age: 52 Procedure Date: 05/22/2022 Procedure Type: Transthoracic Echocardiogram Location: OP Height: 149.86 cm Weight: 88.45 kg BSA: 1.82 m2 Heart Rate: 95 bpm BP: 152 / 80 mmHg Chicken Raiser: SB Referring MD: Johnny Sanches MD Symptoms: R00.2 - Palpitations Study Quality: Fair but adequate ECG Rhythm: Sinus Conclusions: - The left ventricular systolic function is normal. The calculated ejection fraction is 62% by biplane method. - No obvious valvular pathology seen on this study. Findings Left Ventricle Normal left ventricular cavity size. The left ventricular systolic function is normal. The calculated ejection fraction is 62% by biplane method. There is no evidence of regional wall motion abnormalities. Diastolic function is normal for age. There is mild septal and mild basal asymmetric hypertrophy. Right Ventricle Normal right ventricular cavity size and systolic function. Atria Both atria are normal in size. Aortic Valve The aortic valve structure and function is likely normal. There is no aortic valve stenosis. There is no aortic valve regurgitation. Mitral Valve The mitral valve appears normal. There is no mitral valve regurgitation. There is no mitral valve stenosis. Pulmonic Valve The pulmonic valve is likely normal. Tricuspid Valve There is no tricuspid valve regurgitation. Tricuspid regurgitation envelope is inadequate for calculation of right ventricular systolic pressure. Great Vessels The asc aorta is normal in size. Venous The inferior vena cava was not well visualized. Pericardium/Pleural There is no evidence of pericardial effusion. Prior Study Comparison No significant change compared to prior study dated: 08/30/2015. Recommendations, Care & Conclusions No obvious valvular pathology seen on this study. Measurements 2D Linear Measurements IVSd: 1.12 0.6-0.9/0.6-1.0 cm LVIDd: 3.94 3.9-5.3/4.2-5.9 cm LVIDd Index: 2.16 2.4-3.2/2.2-3.1 cm/m2 LVIDs: 2.69 2.0-3.6 cm LVPWd: 1.07 0.7-1.1 cm LA Diam: 2.40 2.7-3.8/3.0-4.0 cm LAIDs Index: 1.32 1.5-2.3 cm/m2 LV Mass: 175.95 67-162/88-224 g LV Mass Index: 96.68 43-95/49-115 g/m2 LVOT Diam: 2.10 3.0+(-)1.3 cm 2D Systolic Function EF 4C: 48.10 >55% EF 2C: 71.80 >55% EF BiP: 62.30 >55% Mitral Valve MV Pk E: 0.63 MV PK A: 1.17 MV Decel Time: 146.00 E/A: 0.50 E'Lateral: 6.53 E'Medial: 7.18 E/E' Med: 8.80 E/E' Lat: 9.70 PHT: 43.00 MVA PHT: 5.12 Decel [place]: 4.34 Aortic Valve AoV Pk Jun: 1.28 AoV Pk Grad: 7.00 SAM: 2.95 LVOT LVOT Pk Jun: 1.09 LVOT Mn Jun: 0.70 LVOT VTI: 0.19 LVOT Pk Grad: 5.00 LVOT Mn Grad: 2.00 LVOT Diam: 2.10 LVOT Area: 3.46 Diastolic Function MV Pk E: 0.63 MV Pk A: 1.17 E/A: 0.50 E'Medial: 7.18 E/E' Med: 8.80 E' Laterial: 6.53 E/E' Lat: 9.70 Right Ventricle TAPSE (mm): 17.40 TVS' Jun: 13.30 Great Vessels Aorta Sinus of Valsalva: 3.30 2.0-3.5 cm Ao Asc: 3.30 2.1-3.4 cm Pulmonary Valve PV Pk Jun: 1.13 Peak PV Grad: 5.00 Updated in Other Vendor System with Status of Final Johnny Sanches MD electronically signed on 05/22/2022 4:34:54 PM with status of Final
[2022-05-22 14:17] LABS: MANUAL DIFF FLAG NO
[2022-05-22 14:28] LABS: Basophils Percent Auto 0.6 % (0-2); Eosinophils Absolute Auto 0.1 X10*3/uL (0.0-0.4); Eosinophils Percent Auto 1.6 % (0-4); Hematocrit 41.3 % (37.0-47.0); Hemoglobin 14.1 g/dl (12.0-16.0); Imm Gran Abs Auto 0.02 X10*3/uL (0.00-0.03); Imm Gran Pct Auto 0.3 % (0.0-0.4); Lymphocytes Absolute Auto 2.2 X10*3/uL (1.2-4.9); Lymphocytes Percent Auto 30.8 % (20-40); Mean Corpuscular HGB Conc 34.1 g/dl (31.0-35.0); Mean Corpuscular Hemoglobin 28.1 pg (27.0-33.0); Mean Corpuscular Volume 82.4 fL (80.0-98.0); Mean Platelet Volume 9.6 fL (9.4-12.3); Monocytes Absolute Auto 0.5 X10*3/uL (0.1-1.2); Monocytes Percent Auto 7.4 % (2-11); Neutrophils Absolute Auto 4.2 x10*3/uL (2.0-8.3); Neutrophils Percent Auto 59.3 % (45-73); Platelet Count 300 X10*3/uL (160-400); Red Blood Count 5.01 X10*6/uL (4.20-5.50); Red Cell Distribution Width 13.4 % (11.0-16.0)
[2022-05-24 12:31] LABS: Complement C3 161 mg/dL (83-193)
[2022-05-24 13:46] LABS: Immunoglobulin G Subclass 1 435 mg/dL (382-929); Immunoglobulin G Subclass 2 315 mg/dL (241-700); Immunoglobulin G Subclass 3 61 mg/dL (22-178); Immunoglobulin G Subclass 4 26.3 mg/dL (4-86); Immunoglobulin G Total 872 mg/dL (600-1640)
[2022-05-24 14:07] LABS: Immunoglobulin A 482 mg/dL (47-310); Immunoglobulin M 103 mg/dL (50-300)
[2022-05-24 17:06] LABS: Immunoglobulin E 40 kU/L (<OR=114)
[2022-05-25 19:42] LABS: Complement Total CH50 >60 U/mL (31-60)
== END ==
LOC: HO.CARD 12:27
PROVIDERS: Visit Provider Internal Medicine
DX: R00.2 Palpitations (principal)
CPT/HCPCS: 36415; 82784; 82785; 85025; 86003; 86160; 86162; 93306

== ENCOUNTER 2022-05-29 09:23 | Outpatient (REF) | payer OTHER, SELFPAY ==
[2022-05-29 11:20] LABS: Appearance Urine Clear; Color Urine Yellow; Glucose Urine UA Negative (Negative); Leukocyte Esterase Urine Small (1+) (Negative); Nitrite Urine Negative (Negative); PH 6.5 (5.0-9.0); Specific Gravity - Urine <= 1.005 (1.005-1.025); UMIC TRIGGER UA YES; Urine Blood Negative (Negative); Urine Ketones Negative (Negative); Urine Protein Negative (Neg-Trace)
[2022-05-29 11:30] LABS: Bacteria Urine None Seen (None Seen); Hyaline Casts Urine 0-2 /LPF (0-2); RBC Urine 0-2 /HPF (0-2); Squamous Epithelial Cell Urine 0-2 /HPF (0-2); WBC Urine 0-5 /HPF (0-5)
[2022-05-29 11:49] LABS: Alanine Aminotransferase 45 U/L (0-31); Albumin Level 4.1 g/dL (3.5-5.0); Alkaline Phosphatase 78 U/L (39-117); Anion Gap 13 (12-20); Aspartate Amino Transferase 44 U/L (5-31); Bilirubin Total 0.6 mg/dL (0.0-1.0); Blood Urea Nitrogen 6 mg/dL (9-16); Calcium 9.4 mg/dL (8.4-10.2); Carbon Dioxide 29 mmol/L (22-29); Chloride 103 mmol/L (96-108); Cholesterol 204 mg/dL; Estimated Glomerular Filt Rate > 60; Glucose Fasting 117 mg/dL (60-99); HDL Cholesterol 47 mg/dL; LDL Cholesterol Calculated 126 mg/dl; Potassium 4.2 mmol/L (3.3-5.1); Sodium 141 mmol/L (135-145); Total Protein 6.9 g/dL (6.5-8.0); Triglycerides 156 mg/dL
[2022-05-29 11:59] LABS: TSH reflex Free T4 1.82 uIU/mL (0.32-4.0)
== END 2022-05-29 09:24 | disposition home or self-care (01) ==
LOC: HO.WFDLDS 09:23
PROVIDERS: Visit Provider Family Medicine
DX: Z00.00 Encounter for general adult medical examination without abnormal findings (principal); R35.0 Frequency of micturition
CPT/HCPCS: 36415; 80053; 80061; 81001; 84443; 87086

== ENCOUNTER → 2022-06-20 13:25 | Outpatient (BNVA) | payer OTHER, SELFPAY | PROVIDERS: PCP Family Medicine; Referring Provider Family Medicine; Visit Provider Internal Medicine | DX: R00.2 Palpitations (principal); R00.0 Tachycardia, unspecified | CPT/HCPCS: 99212 ==

== ENCOUNTER 2022-06-26 09:37 | Day surgery (SDC) | payer OTHER, SELFPAY ==
[2022-06-19 15:27] VITALS: BMI 39.6
--- NOTE | 2022-06-25 11:03 | HO.ANESPROP2 ---
Documented by User: Camelia Bullock NP 06/25/22 11:04 HPI - Anesthesia Eval Consult details Narrative: 52yo F for Upper Endoscopy and Colonoscopy Cardiac cleared [facility] Active Problems Active Problems: All Active Problems (Updated 06/06/22 @ 14:36 by Layton Ward MD) Ankylosing spondylitis (Acute) Urinary frequency (Acute) Right foot pain (Acute) Sinus tachycardia (Acute) Bee sting reaction (Acute) Back pain (Acute) Pain of right heel (Acute) Elevated liver enzymes (Acute) Chest discomfort (Acute) Intermittent palpitations (Acute) Hx: UTI (urinary tract infection) (Acute) Elevated blood pressure reading (Acute) Chest pain (Acute) Asthma (Acute) Cough (Acute) Bronchitis (Acute) Allergies (Acute) Yeast infection of the skin (Acute) Sinus congestion (Acute) Aphthous ulcer (Acute) Sore throat (Acute) Chronic idiopathic constipation (Acute) Crohn disease (Acute) Back strain (Acute) Personal history of COVID-19 (Acute) Bilateral otitis media (Acute) Viral illness (Acute) Psoriasis (Acute) Obesity (BMI 30-39.9) (Acute) Hx of bronchitis (Acute) Left lower quadrant pain (Acute) Cellulitis, leg (Acute) Dizziness (Acute) Right leg pain (Acute) Restless leg syndrome (Acute) Thrush (Acute) Furuncles (Acute) Leukocytes in urine (Acute) Chronic ankle pain, bilateral (Acute) Vitamin D deficiency (Acute) B12 deficiency (Acute) Obesity (BMI 30-39.9) (Acute) Well adult exam (Acute) Left shoulder pain (Acute) Tonsil stone (Acute) Urinary tract infection (Acute) Dysuria (Acute) Past Medical History Medical History Chronic idiopathic constipation Crohn disease Dysuria Unspecified asthma, uncomplicated Family History Family History Father Suicide Mother Hypertension Diabetes Paternal Grandmother Stroke Brother In good health Sister In good health Surgical History Surgical History History of esophagogastroduodenoscopy (EGD) Hx of colonoscopy No pertinent past surgical history Social History Social History Housing: Other Housing Other:: mobile home Alcohol intake: current Alcohol intake frequency: does not drink Patient Tobacco Use Status: Never used Tobacco e-Cigarette/Vaping Use: Never Used Second Hand Smoke Exposure: Yes Use of substances other than those prescribed or required for medical reasons: No Are you DNR?: No Advance Directives: No Advance Directives Information Provided: Yes service: No Current occupational status: disabled Current occupational exposures/hazards: No Cognitive needs: No Hearing needs: No Vision needs: No Meds Allergies Allergy/AdvReac Type Severity Reaction Status Date / Time Penicillins [PENICILLINS] Allergy Severe ANAPHYLAXIS Verified 06/20/22 13:38 simvastatin Allergy Mild weird Verified 06/20/22 13:38 feeling ibuprofen AdvReac Intermediate stomach Verified 06/20/22 13:38 upset, irritates Chrohn's Home Medications Medication Instructions Recorded Confirmed Last Taken Type azelastine 137 mcg (0.1 %) nasal 2 spray intranasal BID 07/12/20 06/26/22 06/26/22 History spray aerosol calcium carbonate 168 mg calcium 168 mg PO TID 07/12/20 06/26/22 Unknown History (420 mg) chewable tablet ([place]) montelukast 10 mg tablet 10 mg PO DAILY 07/12/20 06/26/22 Unknown History lamotrigine 100 mg tablet 100 mg PO DAILY 10/19/20 06/26/22 06/26/22 History lorazepam 0.5 mg tablet 0.5 mg PO BID PRN anxiety 10/19/20 06/26/22 Unknown History cranberry extract 250 mg capsule 250 mg PO DAILY 03/31/21 06/26/22 Unknown History adalimumab 40 mg/0.4 mL 40 mg subcut Q2W 10/24/21 06/26/22 Unknown History subcutaneous pen kit (Humira(CF) Pen) Exam Exam Date and Time: June 25, 2022 1103 Height,Weight and Vital Signs: Height 4 ft 11 in Weight 88.904 kg Pertinent Lab Results Pertinent Lab Results: Laboratory Tests 05/22/22 05/29/22 14:14 09:35 WBC 7.0 Hgb 14.1 Hct 41.3 Plt Count 300 Sodium 141 Potassium 4.2 Chloride 103 Carbon Dioxide 29 BUN 6 L Creatinine 0.68 Narrative Narrative: -05/2022 12 lead EKG shows sinus rhythm at 81/Min; possible left atrial enlargement and incomplete right bundle branch pattern. In the recent Holter monitor, underlying rhythm was sinus.? About 18% the time, there was sinus tachycardia but no other arrhythmias. In the echocardiogram, LVEF 62%.? No wall motion abnormalities.? Mild septal hypertrophy.? Normal diastolic function.? Right ventricle size function unremarkable.? Valves were unremarkable. Assessment and Plan Assessment Anesthesia Assessment: Chart Reviewed Documented by User: Luis Henriquez MD 06/26/22 10:49 [facility] Past Medical History Medical History Chronic idiopathic constipation Crohn disease Dysuria Unspecified asthma, uncomplicated Family History Family History Father Suicide Mother Hypertension Diabetes Paternal Grandmother Stroke Brother In good health Sister In good health Family history of problems with anesthesia: No Surgical History Surgical History History of esophagogastroduodenoscopy (EGD) Hx of colonoscopy No pertinent past surgical history History of Problems with Anesthesia: No Social History Social History Housing: Other Housing Other:: mobile home Alcohol intake: current Alcohol intake frequency: does not drink Patient Tobacco Use Status: Never used Tobacco e-Cigarette/Vaping Use: Never Used Second Hand Smoke Exposure: Yes Use of substances other than those prescribed or required for medical reasons: No Are you DNR?: No Advance Directives: No Advance Directives Information Provided: Yes service: No Current occupational status: disabled Current occupational exposures/hazards: No Cognitive needs: No Hearing needs: No Vision needs: No Meds Allergies Allergy/AdvReac Type Severity Reaction Status Date / Time Penicillins [PENICILLINS] Allergy Severe ANAPHYLAXIS Verified 06/20/22 13:38 simvastatin Allergy Mild weird Verified 06/20/22 13:38 feeling ibuprofen AdvReac Intermediate stomach Verified 06/20/22 13:38 upset, irritates Chrohn's Home Medications Medication Instructions Recorded Confirmed Last Taken Type azelastine 137 mcg (0.1 %) nasal 2 spray intranasal BID 07/12/20 06/26/22 06/26/22 History spray aerosol calcium carbonate 168 mg calcium 168 mg PO TID 07/12/20 06/26/22 Unknown History (420 mg) chewable tablet ([place]) montelukast 10 mg tablet 10 mg PO DAILY 07/12/20 06/26/22 Unknown History lamotrigine 100 mg tablet 100 mg PO DAILY 10/19/20 06/26/22 06/26/22 History lorazepam 0.5 mg tablet 0.5 mg PO BID PRN anxiety 10/19/20 06/26/22 Unknown History cranberry extract 250 mg capsule 250 mg PO DAILY 03/31/21 06/26/22 Unknown History adalimumab 40 mg/0.4 mL 40 mg subcut Q2W 10/24/21 06/26/22 Unknown History subcutaneous pen kit (Humira(CF) Pen) Exam Airway Mallampati Class: II TM Dist: >3cm Neck ROM: Full Heart: rrr Lungs: clear Assessment and Plan Final Anesthetic Review Family History of Problems with Anesthesia: No History of Problems with Anesthesia: No NPO: Yes ASA Class: III Final Preanesthetic Review: No Changes in Pt Med Stat, Meds/Allgs Chart Reviewed, Consent Obtained/Reviewed and Anes Risks/Benef Reviewed Patient Risk: Intermediate Anesthetic Plan Anesthetic Plan: MAC: Disposition: Standard PACU
--- NOTE | 2022-06-26 09:54 | MHC.SHP ---
Pre-Procedural Eval Section A Date of Service: 06/26/22 Section B Chief Complaint: GERD, screening Details of Present Illness: hx of crohns disease Relevant Family History (Specify if Yes): No Relevant Social History: None Present Medications: see Short Stay Collaborative assessment Medical History: Significant History (Chronic idiopathic constipation Crohn disease Dysuria Unspecified asthma, uncomplicated) History of Previous Operations: Relevant previous surgery/procedure and date(s) (History of esophagogastroduodenoscopy (EGD) Hx of colonoscopy) Allergies: Allergies Allergy/AdvReac Type Severity Reaction Status Date / Time Penicillins [PENICILLINS] Allergy Severe ANAPHYLAXIS Verified 06/20/22 13:38 simvastatin Allergy Mild weird Verified 06/20/22 13:38 feeling ibuprofen AdvReac Intermediate stomach Verified 06/20/22 13:38 upset, irritates Bryant's Review of Systems Sugical H&P ROS: Negative: Constitution, Cardiovascular, Respiratory, Neurological, Psychiatric, Hem-Onc, Allergic/Immunologic, Gastrointestinal, Genitourinary, Musculoskeletal, Integumentary, Endocrine and Eyes/Ears/Nose/Throat Exam Surgical H&P Exam: Normal: HEENT, Normal: Heart, Normal: Lungs, Normal: Extremities, Normal: Abdomen, Normal: Skin and Normal: Neurological Exam Comment: reduced spinal motion due to Plan Diagnosis/Plan: Unchanged I have reviewed the history and physical and performed a pertinent physical examination on my patient. No changes have occurred unless specified.
[2022-06-26 09:55] VITALS: BMI 39.6
--- NOTE | 2022-06-26 10:23 | PC.NURSE ---
patient very anxious and refusing resp treatment at this time. insp/exp wheezing treatment. blew nose and wheezing subsided. ll congestion still noted.
[2022-06-26 10:26] VITALS: BP 142/91; PULSE 85; RESP 16; TEMP 36.4; O2SAT 97
[2022-06-26] MEDS: Albuterol Sulfate (0.083%) 2.5 MG/3 ML VIAL.NEB INHALE (10:32)
[2022-06-26 10:34] VITALS: PULSE 83; RESP 17; O2SAT 99
--- NOTE | 2022-06-26 10:36 | W.PM.OPN ---
Operative Note Operative Note Date of Service: 06/26/22 Narrative: Operative Information Procedure Description: EGD, Colonoscopy Indication: GERD, screening with crohns history Anesthesia: MAC FLEXIBLE TRANSORAL UPPER GASTROINTESTINAL ENDOSCOPY AND COLONOSCOPY PROCEDURE NOTE UPPER ENDOSCOPY Consent: Indications for the procedure and potential complications of bleeding, perforation, reaction to medications and missed diagnosis were discussed with the patient and informed consent was obtained. Instrument: Olympus GIF H 190 J mid size upper endoscope Monitoring: Vital signs and clinical assessment, continuous EKG monitoring, Pulse oximetry, Carbon Dioxide monitoring and blood pressure monitoring were done throughout the procedure. Procedure: The patient was placed in the left lateral decubitis position and pre-procedure medications were administered and a bite block was placed. The endoscope was inserted into the mouth and advanced under direct vision to the third part of duodenum. A careful inspection was made as the upper endoscope was withdrawn including a retroflexed examination of the proximal stomach; Findings and interventions are described below. Findings: Larynx:normal Esophagus: GE junction at 35 cm, diaphragm hiatus at 35 cm, normal mucosa, bx taken from esophagus and GEJ Stomach: Normal mucosa. Biopsies were obtained. Grade 2 flap valve on retroflexed examination of the cardia. Duodenum: Normal bulb and descending duodenum, bx taken Intervention: Biopsies as noted above COLONOSCOPY Instrument: Olympus variable stiffness pediatric scope 190L Colonoscopy Monitoring: Vital signs and clinical assessment, continuous EKG monitoring, Pulse oximetry, Carbon Dioxide monitoring and blood pressure monitoring were done throughout the procedure. Colon withdrawal time was 14 minutes. Procedure: The patient was placed in the left lateral decubitis position and pre-procedure medications were administered. After a digital rectal examination of the ano-rectum, the video colonoscope was inserted into the rectum and advanced through the colon to the cecum/TI. The colonoscope was slowly withdrawn in a retrograde panoramic fashion and the colon mucosa was carefully examined including a retroflexed view of the rectum. Findings and interventions are described below. Procedure Difficulty:moderate due to looping and diverticulosis Findings: Terminal Ileum-normal, bx taken Random bx taken from right, transverse, left and rectum areas in separate jars Cecum:normal Ascending Colon: normal Transverse Colon -normal Descending Colon:normal Sigmoid Colon:severe diverticulosis with thickened mucosa and luminal narrowing, 10-12 mm sessile polyp removed with cold snare with x 1 clip applied for hemostasis Rectum: Retroflexion with small internal hemorrhoids, grade I Anorectum - normal Colon preparation: [place] Bowel Preparation Scale Right colon; 2 Transverse colon: 2 Left colon; 2 (0 = Unprepared colon segment with mucosa not seen due to solid stool that cannot be cleared. 1 = Portion of mucosa of the colon segment seen, but other areas of the colon segment not well seen due to staining, residual stool and/or opaque liquid. 2 = Minor amount of residual staining, small fragments of stool and/or opaque liquid, but mucosa of colon segment seen well. 3 = Entire mucosa of colon segment seen well with no residual staining, small fragments of stool or opaque liquid) Impression and Post Procedure Diagnosis: Endoscopy Findings: normal Colonoscopy Findings: polyp internal hemorrhoids diverticular disease Plan: Await Pathology results Repeat Colonoscopy in 1-2 years due to crohns history or earlier if clinically indicated High fiber diet leaflet avoid straining at stool, epsom salts and sitz bath, anusol supps or cream Above findings were reviewed with the patient and relevant handouts were provided if indicated.
[2022-06-26 11:51] VITALS: BP 109/71; PULSE 91; RESP 11; TEMP 37.1; O2SAT 97
[2022-06-26 12:06] VITALS: BP 104/69; PULSE 83; RESP 16; TEMP 36.6; O2SAT 95
== END 2022-06-26 12:49 | disposition home or self-care (01) ==
PROVIDERS: PCP Family Medicine; Visit Provider Internal Medicine Gastroenterology
PROC: (CPT 45385; principal; 2022-06-26 11:10)
DX: Z12.11 Encounter for screening for malignant neoplasm of colon (principal); D12.5 Benign neoplasm of sigmoid colon; K57.30 Diverticulosis of large intestine without perforation or abscess without bleeding; K56.2 Volvulus; K64.0 First degree hemorrhoids; K50.10 Crohn's disease of large intestine without complications; K59.04 Chronic idiopathic constipation; K21.9 Gastro-esophageal reflux disease without esophagitis; J45.909 Unspecified asthma, uncomplicated; Z79.899 Other long term (current) drug therapy; Z88.0 Allergy status to penicillin
CPT/HCPCS: 45385; 45380; 43239; 88305; 88342; 94640

== ENCOUNTER → 2022-07-10 13:15 | Outpatient (BNVA) | payer OTHER, SELFPAY | PROVIDERS: PCP Family Medicine; Visit Provider Nurse Practitioner Family | DX: D12.5 Benign neoplasm of sigmoid colon (principal); K50.10 Crohn's disease of large intestine without complications; K59.04 Chronic idiopathic constipation; R74.8 Abnormal levels of other serum enzymes; Z98.890 Other specified postprocedural states | CPT/HCPCS: 99212 ==

== ENCOUNTER 2022-08-24 12:31 | Outpatient (REF) | payer OTHER, SELFPAY ==
[2022-08-24 13:39] LABS: MANUAL DIFF FLAG NO
[2022-08-24 13:47] LABS: Basophils Absolute Auto 0.1 X10*3/uL (0.0-0.2); Basophils Percent Auto 0.8 % (0-2); Eosinophils Absolute Auto 0.1 X10*3/uL (0.0-0.4); Eosinophils Percent Auto 1.8 % (0-4); Hematocrit 42.3 % (37.0-47.0); Hemoglobin 13.9 g/dl (12.0-16.0); Imm Gran Abs Auto 0.03 X10*3/uL (0.00-0.03); Imm Gran Pct Auto 0.4 % (0.0-0.4); Lymphocytes Absolute Auto 2.1 X10*3/uL (1.2-4.9); Lymphocytes Percent Auto 28.8 % (20-40); Mean Corpuscular HGB Conc 32.9 g/dl (31.0-35.0); Mean Corpuscular Hemoglobin 27.9 pg (27.0-33.0); Mean Corpuscular Volume 84.8 fL (80.0-98.0); Mean Platelet Volume 10.1 fL (9.4-12.3); Monocytes Absolute Auto 0.6 X10*3/uL (0.1-1.2); Monocytes Percent Auto 8.6 % (2-11); Neutrophils Absolute Auto 4.3 x10*3/uL (2.0-8.3); Neutrophils Percent Auto 59.6 % (45-73); Platelet Count 314 X10*3/uL (160-400); Red Blood Count 4.99 X10*6/uL (4.20-5.50); Red Cell Distribution Width 13.5 % (11.0-16.0); White Blood Count 7.2 X10*3/uL (4.8-10.8)
[2022-08-24 14:20] LABS: Alanine Aminotransferase 53 U/L (0-31); Albumin Level 4.1 g/dL (3.5-5.0); Alkaline Phosphatase 80 U/L (39-117); Anion Gap 12 (12-20); Aspartate Amino Transferase 55 U/L (5-31); Bilirubin Total 0.7 mg/dL (0.0-1.0); Blood Urea Nitrogen 6 mg/dL (9-16); Calcium 9.7 mg/dL (8.4-10.2); Carbon Dioxide 30 mmol/L (22-29); Chloride 103 mmol/L (96-108); Estimated Glomerular Filt Rate > 60; Glucose Random 89 mg/dL (60-115); Potassium 4.4 mmol/L (3.3-5.1); Sodium 141 mmol/L (135-145); Total Protein 6.9 g/dL (6.5-8.0)
== END 2022-08-24 12:32 | disposition home or self-care (01) ==
LOC: HO.WFDLDS 12:31
PROVIDERS: Visit Provider Family Medicine
DX: Z00.00 Encounter for general adult medical examination without abnormal findings (principal); K59.00 Constipation, unspecified
CPT/HCPCS: 36415; 80053; 85025

== ENCOUNTER 2022-09-11 12:24 | Outpatient (REF) | payer OTHER, SELFPAY ==
[2022-09-11 15:11] LABS: Influenza A PCR NEGATIVE (Negative); Influenza B PCR NEGATIVE (Negative); Resp Syncy Virus RNA Qual PCR NEGATIVE (Negative); SARS COV2 PCR INHOUSE NEGATIVE (Negative)
== END 2022-09-11 12:25 | disposition home or self-care (01) ==
LOC: HO.LAB 12:24
PROVIDERS: Visit Provider Nurse Practitioner Family
DX: R09.89 Other specified symptoms and signs involving the circulatory and respiratory systems (principal); Z20.822 Contact with and (suspected) exposure to COVID-19
CPT/HCPCS: 0241U

== ENCOUNTER 2022-10-19 10:00 | Outpatient (REF) | payer OTHER, SELFPAY ==
[2022-10-19 11:05] LABS: MANUAL DIFF FLAG NO
[2022-10-19 11:13] LABS: Basophils Percent Auto 0.6 % (0-2); Eosinophils Absolute Auto 0.1 X10*3/uL (0.0-0.4); Eosinophils Percent Auto 1.9 % (0-4); Hematocrit 40.9 % (37.0-47.0); Hemoglobin 13.8 g/dl (12.0-16.0); Imm Gran Abs Auto 0.02 X10*3/uL (0.00-0.03); Imm Gran Pct Auto 0.3 % (0.0-0.4); Lymphocytes Percent Auto 31.6 % (20-40); Mean Corpuscular HGB Conc 33.7 g/dl (31.0-35.0); Mean Corpuscular Hemoglobin 28.2 pg (27.0-33.0); Mean Corpuscular Volume 83.6 fL (80.0-98.0); Monocytes Absolute Auto 0.5 X10*3/uL (0.1-1.2); Monocytes Percent Auto 8.5 % (2-11); Neutrophils Absolute Auto 3.6 x10*3/uL (2.0-8.3); Neutrophils Percent Auto 57.1 % (45-73); Platelet Count 302 X10*3/uL (160-400); Red Blood Count 4.89 X10*6/uL (4.20-5.50); Red Cell Distribution Width 13.6 % (11.0-16.0); White Blood Count 6.3 X10*3/uL (4.8-10.8)
[2022-10-19 11:49] LABS: Appearance Urine Clear; Color Urine Yellow; Glucose Urine UA Negative (Negative); Leukocyte Esterase Urine Small (1+) (Negative); Nitrite Urine Negative (Negative); PH 7.5 (5.0-9.0); Specific Gravity - Urine <= 1.005 (1.005-1.025); UMIC TRIGGER UA YES; Urine Blood Negative (Negative); Urine Ketones Negative (Negative); Urine Protein Negative (Neg-Trace)
[2022-10-19 12:03] LABS: Bacteria Urine None Seen (None Seen); Hyaline Casts Urine 0-2 /LPF (0-2); RBC Urine 0-2 /HPF (0-2); Squamous Epithelial Cell Urine 0-2 /HPF (0-2); WBC Urine 0-5 /HPF (0-5)
[2022-10-19 12:06] LABS: Alanine Aminotransferase 30 U/L (0-31); Alkaline Phosphatase 81 U/L (39-117); Anion Gap 11 (12-20); Aspartate Amino Transferase 33 U/L (5-31); Bilirubin Total 0.8 mg/dL (0.0-1.0); Blood Urea Nitrogen 7 mg/dL (9-16); Carbon Dioxide 28 mmol/L (22-29); Chloride 103 mmol/L (96-108); Cholesterol 193 mg/dL; Estimated Glomerular Filt Rate > 60; Glucose Fasting 109 mg/dL (60-99); Glucose Random 108 mg/dL (60-115); HDL Cholesterol 45 mg/dL; LDL Cholesterol Calculated 128 mg/dl; Potassium 3.9 mmol/L (3.3-5.1); Sodium 138 mmol/L (135-145); Total Protein 6.6 g/dL (6.5-8.0); Triglycerides 104 mg/dL
[2022-10-19 12:13] LABS: TSH reflex Free T4 1.97 uIU/mL (0.32-4.0)
[2022-10-19 12:31] LABS: Creatinine Urine 11.08 mg/dL; Microalbumin Urine < 5.0 mg/L
== END 2022-10-19 10:01 | disposition home or self-care (01) ==
LOC: HO.WFDLDS 10:00
PROVIDERS: Family Medicine; Visit Provider Internal Medicine
DX: Z00.00 Encounter for general adult medical examination without abnormal findings (principal); I10 Essential (primary) hypertension; I25.10 Atherosclerotic heart disease of native coronary artery without angina pectoris
CPT/HCPCS: 36415; 80048; 80053; 80061; 81001; 81003; 82043; 84443; 85025

== ENCOUNTER 2022-10-19 11:00 | Outpatient (RCR) | payer OTHER, SELFPAY ==
--- NOTE | 2022-06-06 14:43 | MHC.PT.EP ---
[facility] [place] Office [place] Office [place] Office [address] Lilian Peguero [address] [phone] F: [phone] F: [phone] F: [phone] F: [phone] Physical Therapy Plan of Care Date of Evaluation: Date of Surgery: NA Diagnosis: B ANKLE PAIN Assessment: Pt IS 52 YO F REFERRED TO PT FROM DR STOREY WITH B ANKLE/FOOT PAIN. Pt REPORTS ANKYLOSING SPONDYLITIS WHICH AFFECTS MOST AREAS OF HER BODY (ESPECIALLY NECK AND LB). PRESENTS WITH POOR POSTURE, LIMITED FLEXIBILITY T/O AND PAIN. SHOULD BENEFIT FROM PT TO ADDRESS THESE ISSUES. OF NOTE, Pt S ANKLE ROM AND STRENGTH TESTED OUT WNLS. MORE OF HER COMPLAINTS SEEM TO BE FROM NECK AND BACK SO THESE MAY BE AREAS TO INCLUDE IN TREATMENT (?UPDATED SCRIPT). 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 SHOULD BENEFIT FROM FURTHER EDUCATION FOR DEALING WITH THIS DX. THIS PT SPOKE WITH DR STOREY RE PRESENTATION AT [facility] AND POSSIBILITY OF TREATING NECK/LB WELL WITH ANKYLOSING SPONDYLITIS THE DX Frequency and Duration: The patient will be seen 2X/WK X 6 WKS Short Term Goals: 1. INCREASED AWARENESS POSTURE AND BACK CARE 2. I HEP WITH DC EX PLAN Mcc Goals: 1. DECREASED ANKLE PAIN AT LEAST 50% WITH ADLS 2. IMPROVED CERVICAL AND TRUNK ROM AT LEAST 25% T/O 3. Pt TO REPORT OVERALL IMPROVED FLEXIBILITY IN HER BODY WITH AN INCREASE IN ENJOYABLE ACTIVITIES (YARD WORK, RIDING STATIONARY BIKE ETC) Treatment Plan: Modalities to reduce pain, spasms and effusion. Manual therapy to restore motion and function. Therapeutic exercise to improve strength and flexibility. Neuromuscular re-education for posture and balance. Therapeutic activities to return to functional activities of daily living. Electronically signed by: BLAINE CRUZ PT Please sign and return to therapist. Thank you for your referral.
--- NOTE | 2022-08-22 14:49 | MHC.PT.DC ---
[facility] [place] Office [place] Office [place] Office [address] Lilian Peguero [address] [phone] F: [phone] F: [phone] F: [phone] F: [phone] Physical Therapy Discharge Report Diagnosis: B ANKLE PAIN Date of Surgery: NA Date of Evaluation: 06/06/22 Date of Discharge: 08/22/22 Treatments to Date: 5 Cancellations to Date: No Shows to Date: Discharge Status: Insurance Declined Tx Visit Non-compliance Discharge Summary: PER ASSESSMENT FROM LAST VISIT ON 07/26/22 BY TONIE MORE PT,DPT; Pt has verbalizes carryover of home program however she presents with severe anxiety, perseverating on medical issues. No significant gains verbalized since start of care some good days, some bad. Pt expresses short term relief post tx. Therapist attempts to educate/encourage patient to research pool program/gym/HEP as this is low impact however pt hesitant for these recommendations and expressing transportation and anxiety as limitations. She reports having a stationary bike at home but expresses her anxiety is limiting her from completing at home. NEXT 2 APPTS CANCELLED (1 BECAUSE THERAPIST OUT THEN NEXT Pt NOT FEELING WELL, NEXT VISIT (08/17/22) CANCELLED BECAUSE OF NO INS AUTH. WILL DC PT AT THIS TIME SINCE ALMOST A MONTH SINCE LAST SESSION, AND RE-EVALUATE IF NECESSARY/WARRENTED PER NEXT MD FU Electronically signed by: BLAINE CRUZ PT Please sign and return to therapist. Thank you for your referral.
--- NOTE | 2022-09-18 15:36 | MHC.PT.OD ---
[facility] [place] [facility] [place] [facility] [place] [facility] [address] Lilian Peguero [address] [phone] F: [phone] F: [phone] F: [phone] F: [phone] Physical Therapy Daily Note Diagnosis: B ANKLE PAIN Date of Surgery: NA Date of Evaluation: 06/06/22 Date of Treatment: 09/18/22 Treatments to Date: 6 Cancellations to Date: No Shows to Date: Authorized Visits: Insurance End Date: Precautions/ Contraindications:ANKYLOSING SPONDYLITIS Crohns disease on Humira 2x monthly injections Anxiety/depression Subjective: Pt presents to office after having not been to PT since 07/26/23. Pt was seen by PCP Dr. Ward on 08/24/22 with new order for PT for her back pain and her R ankl. Reports was seen at [facility] [place] for sudden onset R knee edema/pain a few days ago. Reports workup (-) DVT but was told she has a calcified aorta. Pain Score and Location: 6-7 ANKLES (Pt ALSO C/O NECK AND BACK PAIN) Objective Flowsheet: Tests & Measures Assessment and Plan Assessment & Plan (1) Constipation: Code(s): K59.00 - Constipation, unspecified Plan: Abdominal distension/bloating and feeling of difficulty with defecation. Palpated stools. Likely constipation. Increase hydration and for today, switch to a clear liquid diet. Advance diet as tolerated tomorrow. Can use her usual bowel regimen as well as MiraLax (2) Right ankle pain: Code(s): M25.571 - Pain in right ankle and joints of right foot Plan: Referred back to physical therapy as this has been helping (3) Rash of groin: Code(s): R21 - Rash and other nonspecific skin eruption (4) Back pain: Code(s): M54.9 - Dorsalgia, unspecified Plan: Referred to physical therapy (5) Elevated liver enzymes: Code(s): R74.8 - Abnormal levels of other serum enzymes Plan: Prior liver ultrasound showed hepatic steatosis and this is the likely cause of ongoing elevated liver enzymes. Following this Check labs Advised weight loss Orders: Orders Comprehensive Met. Panel Today K59.00 - Constipation, unspecified Complete Blood Count Auto Diff Today Z00.00 - Encounter for general adult medical examination without abnormal findings PT Evaluation and Treatment Today M25.571 - Pain in right ankle and joints of right foot, M45.9 - Ankylosing spondylitis of unspecified sites in spine, M54.9 - Dorsalgia, unspecified Medications: New polyethylene glycol 3350 (Miralax) 17 grams PO DAILY 7 days 7 ea 0RF Refilled clotrimazole 1% 1 appful vaginal BEDTIME 7 days 45 grams 0RF Coding Level of Care Code Est Pt Level 4 (04186) Diagnoses Constipation K59.00 Right ankle pain M25.571 Rash of groin R21 Back pain M54.9 Elevated liver enzymes R74.8 Documented By:Layton Ward MD08/24/22 1151 [facility] [address] [place] [id number] Primary Care Office Visit Signed with Carlos Patient: Josselin Harrington EMR#: [id number] : 1970Acct:[id number] Age/Sex: 52 / FADM/SER Date: 05/29/22 Loc: HO.HMGFMADM/SER Time:814 Attending Provider: Layton Ward MD cc: Layton Ward MD ADDENDUM She will return in a month for an extended exam with follow-up labs and health maintenance. Complaints of urinary frequency though urine dip is unremarkable. Checking UA and culture. Chest wall and bilateral ankle discomfort. Referred to physical therapy and given Voltaren gel topical. Addendum Documented By:Layton Ward MD05/29/22926 Addendum Signed By:<Electronically signed by Layton Ward MD>05/29/22926 Vital Signs 05/29/22 08:33 Height 4 ft 11 in Weight 189 lb BMI 38.1 BP 138/86 Blood Pressure Location Lt brachial Position Sitting Pulse 82 Pulse Source Pulse Oximeter Pulse Oximetry (%) 99 Oxygen Delivery Method Room Air Intake Visit Reasons: f/u chest discomfort and chronic conditions Paper Reel Operator Required: No Accompanied by: Self / Same As Patient Allergies Penicillins [PENICILLINS] Allergy (Severe, Verified 05/29/22 08:39) ANAPHYLAXIS simvastatin Allergy (Mild, Verified 05/29/22 08:39) weird feeling ibuprofen Adverse Reaction (Intermediate, Verified 05/29/22 08:39) stomach upset, irritates Bryant's Tobacco use date assessed: 05/29/22 HPI f/u chest discomfort and chronic conditions HPI Details Pt presents to f/u chest discomfort. She had seen Dr. Sanches 05/01/22 for palpitations. They had ordered an echocardiogram for her but palpitations do not seem to be cardiac in nature. She states she does have a hx of asthma. She notes she has not gotten the results from the echo yet. She reports R foot continues to bother her. She reports some urinary frequency and questions whether or not she has a UTI. HPI Comment History of Present Illness Details Documentation assistance for Layton Ward MD, was provided by Jeyson Aviles, Tubular Splitting Machine Tender on 05/29/2022 at 9:12 AM EST. I, Dr. Ward, have read, observed, and verified documentation. [facility] Medical History Chronic idiopathic constipation Crohn disease Dysuria Unspecified asthma, uncomplicated Surgical History History of esophagogastroduodenoscopy (EGD) Hx of colonoscopy No pertinent past surgical history Family History Father Suicide Mother Hypertension Diabetes Paternal Grandmother Stroke Brother In good health Sister In good health Social History Housing: Other Housing Other:: mobile home Alcohol intake: current Alcohol intake frequency: does not drink Patient Tobacco Use Status: Never used Tobacco e-Cigarette/Vaping Use: Never Used Second Hand Smoke Exposure: Yes service: No Current occupational status: disabled Current occupational exposures/hazards: No Cognitive needs: No Hearing needs: No Vision needs: No Questionnaire Thrive Questionnaire Date Thrive assessed: 10/17/21 ZENY-7 AMB Questionnaire ZENY-7 Date ZENY - 7 assessed: 10/17/21 Source: Developed by Drs. Bernardino Ahumada, Peri Valencia, Gordy Victoria and colleagues, with an educational hakeem from [employer]. Review of Systems Const Denies chills, Denies fatigue, Denies fever(s), Denies headache(s) and Denies weakness ENT Denies dizziness and Denies headache(s) Card Denies chest pain, Denies lightheadedness, Denies dyspnea and Denies other (Palpitations) Resp Denies cough, Denies dyspnea, Denies wheezing and Denies other ( shortness of breath) Details: Urinary frequency Musc Details: R foot pain Denies numbness and Denies tingling Neuro Denies dizziness, Denies headache(s), Denies numbness, Denies tingling, Denies paresthesias and Denies weakness Psych Denies anxiety and Denies depression Endo Denies fatigue Aller/Immun Denies wheezing Physical exam (Primary Care) Vital Signs: Last Vital Signs Pulse 82 05/29/22 08:33 BP 138/86 05/29/22 08:33 Pulse Ox 99 05/29/22 08:33 Oxygen Delivery Method Room Air 05/29/22 08:33 BMI result Body Mass Index 38.1 Tobacco/Smoking Status: Tobacco use Status Tobacco use date assessed 05/29/22 05/29/22 08:40 Patient Tobacco Use Status Never used Tobacco 05/29/22 08:39 e-Cigarette/Vaping Use Never Used 05/29/22 08:39 Thrive Assessment: Date of Thrive Assessment Date Thrive assessed 10/17/21 05/29/22 08:39 Const General: no acute distress and well developed Nutritional Appearance: well nourished Orientation/consciousness: patient oriented x3 HENMT Head: Yes normocephalic and Yes atraumatic Eyes General: appearance normal, both eyes and all related structures Pupils: Equal, round and reactive pupils present EOM: EOMs intact bilaterally Resp Effort & Inspection: normal respiratory effort Auscultation: clear to auscultation bilaterally Cardio Rate: regular rate Rhythm: regular rhythm Heart sounds: S1 normal heart sound present, S2 normal heart sound present, no gallops, no murmurs and no rubs Neuro General: patient oriented x3 and gait normal Cranial nerves: Yes Equal, round and reactive pupils present Psych Affect: normal affect Assessment and Plan Assessment & Plan (1) Chest discomfort: Code(s): R07.89 - Other chest pain Plan: Improving and seems more and more to be related to chest wall discomfort and possibly secondary to ankylosing spondylitis or costochondritis Can use Voltaren gel and ice/heat Will refer to physical therapy (2) Right foot pain: Code(s): M79.671 - Pain in right foot Plan: Right ankle discomfort Can also use Voltaren gel on ankle and ice/heat Physical therapy (3) Urinary frequency: Code(s): R35.0 - Frequency of micturition Plan: Urine dip is unremarkable Will check UA and culture If negative and she still has symptoms, can refer to Urology Orders: Orders Urine Culture Today R35.0 - Frequency of micturition UA and rflx microscopic Today Z00.00 - Encounter for general adult medical examination without abnormal findings Comprehensive [place]. Panel Fast Today R35.0 - Frequency of micturition, Z00.00 - Encounter for general adult medical examination without abnormal findings Lipid Panel Today R35.0 - Frequency of micturition, Z00.00 - Encounter for general adult medical examination without abnormal findings TSH reflex Free T4 Today R35.0 - Frequency of micturition, Z00.00 - Encounter for general adult medical examination without abnormal findings PT Evaluation and Treatment Today M25.571 - Pain in right ankle and joints of right foot, M25.572 - Pain in left ankle and joints of left foot, R07.89 - Other chest pain Medications: New diclofenac sodium 1% apply to single elbow, wrist or hand; for hand includes palm/fingers/back of hand 4 grams topical QID PRN 100 grams 2RF pain 30 days Changed From pravastatin 80 mg PO BEDTIME To pravastatin 80 mg PO BEDTIME 90 tabs 2RF 90 days Refilled omeprazole 40 mg PO DAILY 90 caps 1RF 3 months R35.0 - Frequency of micturition Coding Level of Care Code Est Pt Level 4 (69176) Diagnoses Chest discomfort R07.89 Right foot pain M79.671 Urinary frequency R35.0 Documented By:Layton Ward MD05/29/22 0833 Exercises Pt has tub bench, 2-3 steps to enter the home with railings. Lives on one level with friend/roommate. Is I with ADLS with increased time reported. Anxiety regarding health issues- high level of concern for falling ill/managing herself. Pt is 4''11' ad 185lbs. Lumbar flexion 60 degrees Lumbar extension poor not tolerated. Increased thoracic kyphosis, tight paraspinals bilaterally. L knee AROM -5 to 130, R knee AROM -12 to 120 degrees. SLR strength poor on R, on L good. Increased R hip ER. Ankle AROM symmetrical (+) weakness L>R EV 4-/5. Pt unable to perform SLS without LOB. Pt reports using std cane prn for stability, presents to the office without using AD today. Strength L hip abd 4/5, R 4-/5. Ankle AROM symmetrical L>R ankle DF 4-/5 B, ankle PF unable to perform single heel raise without (+) LOB, L ankle EV 4-/5, R 4/5. Hip flexion 5/5 B, hip extension sx back pain with attempt bridge, sx back pain with rolling. Sit<>Stand increased UE support with standing. Reports hx ongoing R knee instabiity/buckling. L knee supra patella 42.0 cm, infra patella 34 cm R knee supra patella 45.5 cm , infra 35 cm. Sub-occipital release x 5 minutes in effort to increase tissue extensibility, STM to bilateral lumbar>thoracic paraspinals seated x 10 minutes in effort to ease tissue extensibility. Pt encouraged to perform low load gentle stretches to tolerance. Self care continuuing her HEP as previously issued, benefit in gentle walking program for stress management, inquiry to increase frequency of therapy over the phone >2x/weekly to ease anxiety/emotional stress. Modalities Sensation intact. Education re: application/removal/indications for use. ROCKTAPE I strip three while in DF stretch in effort to reduce heel pain. Pt educate re: application removal indications for treatment. Assessment: 09/18/22: Pt present to office with updated order (08/24/22) from Dr. Ward for treatment of her back pain and R ankle pain. (hx Ankylosing Spondylosis and Crohn's disease). History of previous evaluation on 06/06/22 completed by secondary therapist, attending 5 visits through 07/26/22. Pt was issued a written HEP. Pt expresses fair compliance since last appt verbalizing anxiety and feeling overwhelmed with daily tasks. Reports uses [facility] M/W for support invidividual over the phone and reports seeing Aydee Gupta one a month for medication management. 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 Pt presents to office exhibiting elevated anxiety levels compared to her baseline reports she was seen in the ER at [facility] for new onset R knee pain a few days ago (slight edema noted). Pt reports having work-up and was D/C home same day. She reports delay in taking her Humira medication due to fear of side-effects/reaction as she has reported history of reactions in the past. Due to patient's elevated anxiety and report of fear with taking her medication alone in the home, I feel she would benefit from implementing VNA nursing services for her. She reports difficulty swallowing some of her pills and was encouraged to speak to her PCP about these concerns. She reports she is overwhelmed with tasks of filling her medication boxes and administering her Humira injection 2x/monthly. She reports previous delay in taking her Humira this month due to feeling stomach upset/anxious. We addressed the need for consistency of attendance in therapy moving ahead. She expresses signs and sx which are consistent with plantar fasciitis and is TTP at plantar aspect of plantar fascia insertion on her R ankle. I spoke to Dr. Ward regarding my concern and proposal for implementing VNA nursing care for this patient after she left the office (he will be seeing her 09/21/22.) Therapist is recommending 1x/week to implement a low impact core/hip/ankle stabilization program. Pt reports decreased compliance with previously issued over the past five visits, encouraged patient to reimplement these tasks as long as they did not increase her sx. PER ASSESSMENT FROM LAST VISIT ON 07/26/22 BY MINDY MCKENNA PT,DPT; Pt has verbalizes carryover of home program however she presents with severe anxiety, perseverating on medical issues. No significant gains verbalized since start of care some good days, some bad. Pt expresses short term relief post tx. Therapist attempts to educate/encourage patient to research pool program/gym/HEP as this is low impact however pt hesitant for these recommendations and expressing transportation and anxiety as limitations. She reports having a stationary bike at home but expresses her anxiety is limiting her from completing at home. NEXT 2 APPTS CANCELLED (1 BECAUSE THERAPIST OUT THEN NEXT Pt NOT FEELING WELL, NEXT VISIT (08/17/22) CANCELLED BECAUSE OF NO INS AUTH. WILL DC PT AT THIS TIME SINCE ALMOST A MONTH SINCE LAST SESSION, AND RE-EVALUATE IF NECESSARY/WARRENTED PER NEXT MD FU PT Plan: Follow up with PCP regarding R knee pain. Short Term Goals: 1. INCREASED AWARENESS POSTURE AND BACK CARE 2. I HEP WITH DC EX PLAN Carpet Installation Specialist Goals: 1. DECREASED ANKLE PAIN AT LEAST 50% WITH ADLS 2. IMPROVED CERVICAL AND TRUNK ROM AT LEAST 25% T/O 3. Pt TO REPORT OVERALL IMPROVED FLEXIBILITY IN HER BODY WITH AN INCREASE IN ENJOYABLE ACTIVITIES (YARD WORK, RIDING STATIONARY BIKE ETC) Electronically signed by: Mindy Mckenna, PT, DPT
== END 2023-01-10 15:26 ==
LOC: HO.PTWFD 11:00
PROVIDERS: Visit Provider Family Medicine
DX: M25.571 Pain in right ankle and joints of right foot (principal); M25.572 Pain in left ankle and joints of left foot
CPT/HCPCS: 97110; 97140; 97162; 97164; 97535

== ENCOUNTER → 2022-11-20 13:44 | Outpatient (BNVA) | payer OTHER, SELFPAY | PROVIDERS: PCP Family Medicine; Visit Provider Nurse Practitioner Family | DX: K59.04 Chronic idiopathic constipation (principal); K50.10 Crohn's disease of large intestine without complications; K21.9 Gastro-esophageal reflux disease without esophagitis; R74.8 Abnormal levels of other serum enzymes | CPT/HCPCS: 99212 ==

== ENCOUNTER 2023-01-02 10:06 | Outpatient (REF) | payer OTHER, SELFPAY ==
[2023-01-02 12:04] LABS: Alanine Aminotransferase 31 U/L (0-31); Albumin Level 4.1 g/dL (3.5-5.0); Alkaline Phosphatase 73 U/L (39-117); Anion Gap 13 (12-20); Aspartate Amino Transferase 35 U/L (5-31); Bilirubin Total 0.8 mg/dL (0.0-1.0); Blood Urea Nitrogen 7 mg/dL (9-16); Calcium 9.5 mg/dL (8.4-10.2); Carbon Dioxide 28 mmol/L (22-29); Chloride 104 mmol/L (96-108); Cholesterol 141 mg/dL; Estimated Glomerular Filt Rate > 60; Glucose Fasting 118 mg/dL (60-99); HDL Cholesterol 52 mg/dL; LDL Cholesterol Calculated 70 mg/dl; Potassium 4.6 mmol/L (3.3-5.1); Sodium 140 mmol/L (135-145); Total Protein 6.7 g/dL (6.5-8.0); Triglycerides 95 mg/dL
[2023-01-02 14:28] LABS: Appearance Urine Clear; Color Urine Yellow; Glucose Urine UA Negative (Negative); Leukocyte Esterase Urine Large (3+) (Negative); Nitrite Urine Negative (Negative); PH 6.5 (5.0-9.0); UMIC TRIGGER UA YES; Urine Blood Negative (Negative); Urine Ketones Negative (Negative); Urine Protein Negative (Neg-Trace)
[2023-01-02 14:31] LABS: Bacteria Urine None Seen (None Seen); Hyaline Casts Urine 0-2 /LPF (0-2); RBC Urine 0-2 /HPF (0-2)
== END 2023-01-02 10:07 | disposition home or self-care (01) ==
LOC: HO.WFDLDS 10:06
PROVIDERS: Visit Provider Family Medicine
DX: Z00.00 Encounter for general adult medical examination without abnormal findings (principal)
CPT/HCPCS: 36415; 80053; 80061; 81001; 81003

== ENCOUNTER → 2023-01-08 12:27 | Outpatient (BNVA) | payer OTHER, SELFPAY | PROVIDERS: PCP Family Medicine; Referring Provider Family Medicine; Visit Provider Nurse Practitioner Family | DX: R00.2 Palpitations (principal); I25.10 Atherosclerotic heart disease of native coronary artery without angina pectoris; E78.5 Hyperlipidemia, unspecified; Z79.899 Other long term (current) drug therapy | CPT/HCPCS: 93005; 99212 ==

== ENCOUNTER 2023-04-03 11:23 | Outpatient (AMB) | payer OTHER, SELFPAY ==
[2023-04-03 11:31] VITALS: BP 140/86; PULSE 83; BMI 39.9
--- NOTE | 2023-04-03 11:31 | MHC.OFFVIS ---
Intake Vital Signs 04/03/23 11:31 Height 4 ft 11 in Weight 197 lb 8.547 oz BMI 39.9 BP 140/86 H Blood Pressure Location Lt brachial Position Sitting Pulse 83 Intake Visit Reasons: 4 mnth follow up Intake Note: Josselin presents in office as a est.patient for a 4month f/u for CIC. PT CC: pt reports having constipation pt denies any other GI Issues Housing Counselor Required: No Accompanied by: Self / Same As Patient Allergies Penicillins [PENICILLINS] Allergy (Severe, Verified 04/03/23 11:31) ANAPHYLAXIS simvastatin Allergy (Mild, Verified 04/03/23 11:31) weird feeling ibuprofen Adverse Reaction (Intermediate, Verified 04/03/23 11:31) stomach upset, irritates Chrohn's HPI 4 mnth follow up HPI Details LAST VISIT Chronic idiopathic constipation Discussed with patient the importance of moving her bowels every day. Patient will try MiraLax. Patient does not want to take any medications discussed with her trying to drink prune juice or eat prunes to help her with bowel movement. Patient was also encouraged to increase fluid intake and activity to promote better bowel motility Crohn disease Continue mesalamine. Patient reports that she has been feeling well without any abdominal pain or discomfort Elevated liver enzymes Discussed with patient the importance of eating food that is low in fat. Losing weight also addressed with her. Will repeat blood work when she returns for next visit, her last enzymes were AST 33, ALT 30 GERD (gastroesophageal reflux disease) Continue omeprazole. Discussed with patient the importance of avoiding dietary triggers and late night snacking. Staying upright for minimum 3 hours after meals discussed with patient. I will see patient in 4 months, sooner on as needed basis. Patient is agreeable to this plan and verbalizes understanding of instructions. She was given the opportunity to ask questions and all questions answered. ? Thank you for allowing me to participate in her care Plan Medications Discontinued polyethylene glycol 3350 (Miralax) Discontinued Reason: Duplicate 17 grams PO DAILY 510 grams 2RF TODAY'S VISIT Patient is here today for follow-up. Patient reports that since last time I have seen her she has been doing better. She is taking stool softeners and drinks plenty fluids and reports that she is able to have a bowel movement every day. Patient reports that her acid reflux is controlled with omeprazole, however patient would like to switch it to a tablet instead. Patient denies dyspepsia, dysphagia or odynophagia. Patient denies melena, hematochezia, unintentional weight loss or ribbon like stools. Patient has not lost any weight. She states that she is staying busy, volunteering at [employer] couple times a week. Patient denies any other GI concerning symptoms. [facility] Medical History Chronic idiopathic constipation Crohn disease Dysuria Tubular adenoma Unspecified asthma, uncomplicated Surgical History History of esophagogastroduodenoscopy (EGD) Hx of colonoscopy No pertinent past surgical history Family History Father Suicide Mother Hypertension Diabetes Paternal Grandmother Stroke Brother In good health Sister In good health Social History Housing: Other Housing Other:: mobile home Alcohol intake: current Alcohol intake frequency: does not drink Patient Tobacco Use Status: Never used Tobacco e-Cigarette/Vaping Use: Never Used Second Hand Smoke Exposure: Yes service: No Current occupational status: disabled Current occupational exposures/hazards: No Cognitive needs: No Hearing needs: No Vision needs: No Review of Systems Const Denies weight gain and Denies weight loss ENT Reports no additional complaints, Denies dysphagia and Denies odynophagia Card Reports no additional complaints Resp Reports no additional complaints GI Denies abdominal pain, Denies belching, Denies melena, Denies bloating, Denies change in bowel habits, Denies dysphagia, Denies excessive flatus, Denies dyspepsia, Denies heartburn, Denies diarrhea, Denies loose stools, Denies nausea, Denies odynophagia and Denies vomiting Musc Reports no additional complaints Neuro Reports no additional complaints Psych Reports no additional complaints Endo Reports no additional complaints Physical Exam Vital Signs: Last Vital Signs Pulse 83 04/03/23 11:31 BP 140/86 H 04/03/23 11:31 BMI result Body Mass Index 39.9 Const General: healthy appearing, no acute distress and well developed Nutritional Appearance: obese Orientation/consciousness: patient oriented x3 HEENT Head: Yes normal to inspection, Yes normocephalic and Yes atraumatic Face and sinus: Yes normal facial exam Mouth: Normal oral and palatal mucosa present Throat: Yes posterior oropharynx normal, Yes tonsils normal and Yes uvula midline Eyes General: appearance normal, both eyes and all related structures Neck Neck: Yes normal visual inspection, Yes full ROM and Yes trachea midline Thyroid: Thyroid normal Resp Effort & Inspection: normal respiratory effort, able to speak in complete sentences, no tracheal deviation and symmetric chest movement Auscultation: clear to auscultation bilaterally Cardio Rate: regular rate Heart sounds: S1 normal heart sound present and S2 normal heart sound present GI Inspection: Yes normal to inspection, No distended and Yes obesity Palpation (GI): Soft to palpation, not firm, nontender and No hepatosplenomegaly present Auscultation: normal bowel sounds General: Yes no CVA tenderness Back/Spine/Pelvis Back: no CVA tenderness Skin General skin exam: elasticity normal, turgor normal and dry skin Neuro General: patient oriented x3 Psych Appearance: grossly normal Mental Status: mental status grossly normal Speech and movement: Normal speech and movement present Assessment & Plan Assessment & Plan (1) Constipation: Code(s): K59.00 - Constipation, unspecified Qualifiers: Constipation type: slow transit constipation Qualified Code(s): K59.01 - Slow transit constipation Plan: Patient can continue taking stool softeners. Patient was also encouraged to start taking MiraLax daily so she can empty her bowels completely. Patient was also encouraged to increase fluid intake and activity to promote better bowel motility. (2) Elevated liver enzymes: Code(s): R74.8 - Abnormal levels of other serum enzymes Plan: Patient was encouraged to try to lose weight. Eat food that is low in fat. Increase activity. Will repeat blood work today. (3) GERD (gastroesophageal reflux disease): Code(s): K21.9 - Gastro-esophageal reflux disease without esophagitis Qualifiers: Esophagitis presence: esophagitis presence not specified Qualified Code(s): K21.9 - Gastro-esophageal reflux disease without esophagitis Plan: Patient is having trouble swallowing omeprazole capsules. 40 mg not available in the tablet form. Will change it to pantoprazole 40 mg. Patient will call us in 2 weeks if she will feel like pantoprazole is not working for her. I will see patient in 6 months so we can discuss her going for repeat colonoscopy. Patient is agreeable to this plan and verbalizes understanding of instructions. She was given the opportunity to ask questions and all questions answered. Thank you for allowing me to participate in her care Orders: Orders Liver Panel Today R10.9 - Unspecified abdominal pain Medications: New pantoprazole take one tablet half an hour before breakfast 40 mg PO DAILY 30 tabs 2RF K21.9 - Gastro-esophageal reflux disease without esophagitis Discontinued omeprazole Discontinued Reason: Duplicate 40 mg PO DAILY 3 months 90 caps 1RF R35.0 - Frequency of micturition Coding Level of Care Code Est Pt Level 3 (02662) Diagnoses Constipation K59.01 Constipation type: slow transit constipation Elevated liver enzymes R74.8 GERD (gastroesophageal reflux disease) K21.9 Esophagitis presence: esophagitis presence not specified Time Spent (min) 30 Comment 20 minutes spent with patient and additional 10 minutes spent reviewing her records
== END 2023-04-03 12:00 | disposition home or self-care (01) ==
PROVIDERS: PCP Family Medicine; Visit Provider Nurse Practitioner Family
DX: K59.01 Slow transit constipation (principal); R74.8 Abnormal levels of other serum enzymes; K21.9 Gastro-esophageal reflux disease without esophagitis
CPT/HCPCS: 99213

== ENCOUNTER → 2023-04-03 11:23 | Outpatient (BNVA) | payer OTHER, SELFPAY | PROVIDERS: PCP Family Medicine; Visit Provider Nurse Practitioner Family | DX: K59.01 Slow transit constipation (principal); R74.8 Abnormal levels of other serum enzymes; K21.9 Gastro-esophageal reflux disease without esophagitis | CPT/HCPCS: 99212 ==

== ENCOUNTER 2023-04-04 08:52 | Outpatient (REF) | payer OTHER, SELFPAY ==
[2023-04-04 10:33] LABS: Alanine Aminotransferase 25 U/L (0-31); Alkaline Phosphatase 81 U/L (39-117); Anion Gap 10 (12-20); Aspartate Amino Transferase 31 U/L (5-31); Bilirubin Direct 0.2 mg/dL (0.0-0.5); Bilirubin Total 0.5 mg/dL (0.0-1.0); Blood Urea Nitrogen 8 mg/dL (9-16); Calcium 9.6 mg/dL (8.4-10.2); Carbon Dioxide 27 mmol/L (22-29); Chloride 106 mmol/L (96-108); Cholesterol 145 mg/dL (<200); Estimated Glomerular Filt Rate > 60; Glucose Fasting 118 mg/dL (60-99); HDL Cholesterol 48 mg/dL (>40); LDL Cholesterol Calculated 66 mg/dL (<100); Sodium 139 mmol/L (135-145); Total Protein 6.9 g/dL (6.5-8.0); Triglycerides 155 mg/dL (<150)
[2023-04-04 11:30] LABS: Appearance Urine Clear; Color Urine Yellow; Glucose Urine UA Negative (Negative); Leukocyte Esterase Urine Small (1+) (Negative); Nitrite Urine Negative (Negative); Specific Gravity - Urine <= 1.005 (1.005-1.025); UMIC TRIGGER UA YES; Urine Blood Negative (Negative); Urine Ketones Negative (Negative); Urine Protein Negative (Neg-Trace)
[2023-04-04 11:38] LABS: Bacteria Urine None Seen (None Seen); Hyaline Casts Urine 0-2 /LPF (0-2); RBC Urine 0-2 /HPF (0-2); Squamous Epithelial Cell Urine 0-2 /HPF (0-2); WBC Urine 0-5 /HPF (0-5)
== END 2023-04-04 08:53 | disposition home or self-care (01) ==
LOC: HO.LAB 08:52
PROVIDERS: PCP Family Medicine; Visit Provider Nurse Practitioner Family
DX: Z00.00 Encounter for general adult medical examination without abnormal findings (principal); I25.10 Atherosclerotic heart disease of native coronary artery without angina pectoris; R10.9 Unspecified abdominal pain; R74.8 Abnormal levels of other serum enzymes
CPT/HCPCS: 36415; 80053; 80061; 80076; 81001; 81003; 82248

== ENCOUNTER 2023-04-18 10:54 | Outpatient (AMB) | payer OTHER, SELFPAY ==
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
[2023-04-18 10:58] VITALS: BP 108/62; PULSE 86; RESP 14; TEMP 36.6; O2SAT 98; BMI 39.8
== END 2023-04-18 11:35 | disposition home or self-care (01) ==
PROVIDERS: PCP Family Medicine; Visit Provider Family Medicine
DX: S09.90XA Unspecified injury of head, initial encounter (principal); Z91.81 History of falling; I25.10 Atherosclerotic heart disease of native coronary artery without angina pectoris
CPT/HCPCS: 99214

== ENCOUNTER 2023-05-01 10:58 | Outpatient (AMB) | payer OTHER, SELFPAY ==
[2023-05-01 11:03] VITALS: BP 124/74; PULSE 84; RESP 12; TEMP 36.5; O2SAT 97; BMI 39.9
--- NOTE | 2023-05-01 11:03 | MHC.PC.OV ---
Vital Signs 05/01/23 11:03 Height 4 ft 11 in Weight 197 lb 8 oz BMI 39.9 BP 124/74 Blood Pressure Location Lt brachial Position Sitting Respiration 12 Pulse 84 Pulse Source Pulse Oximeter Temp 97.7 F Temp Source Temporal Artery Scan Pulse Oximetry (%) 97 Oxygen Delivery Method Room Air Intake Visit Reasons: f/u elevated liver enzymes, hyperlipidemia Intake Note: Patient states that she would like to be switched to the tablet form for omeprazole due to her struggling to soften capsule up and difficulty swallowing. Patient would also like her prescriptions be sent for 90 days instead of 30 days per insurance giving her a hard time. Patient would like refill on nystatin powder as well. Maintenance Fitter Required: No Accompanied by: Self / Same As Patient Allergies Penicillins [PENICILLINS] Allergy (Severe, Verified 04/18/23 11:04) ANAPHYLAXIS simvastatin Allergy (Mild, Verified 04/18/23 11:04) weird feeling ibuprofen Adverse Reaction (Intermediate, Verified 04/18/23 11:04) stomach upset, irritates Chrohn's Tobacco use date assessed: 04/18/23 Dental Screening Dental Screen Date: 05/01/23 Did you have a dental visit in the last 12 months?: No Did you have a dental problem in the last 6 months where you did not have access to dental care?: No Was dental information given to patient?: Yes HPI f/u elevated liver enzymes, hyperlipidemia HPI Details 53 y/o female presents to f/u elevated liver enzymes and hyperlipidemia. Labs were drawn 04/04/23. Reviewed labs with pt. Triglycerides 155. TC 145. LDL 66. HDL 48. Liver enzymes now within normal range. Elevated fasting glucose and last A1c in October was 5.6%. [facility] Medical History Tubular adenoma Chronic idiopathic constipation Crohn disease Unspecified asthma, uncomplicated Dysuria Surgical History Hx of colonoscopy History of esophagogastroduodenoscopy (EGD) No pertinent past surgical history Family History Father Suicide Mother Hypertension Diabetes Paternal Grandmother Stroke Brother In good health Sister In good health Social History Housing: Other Housing Other:: mobile home Alcohol intake: current Alcohol intake frequency: does not drink Patient Tobacco Use Status: Never used Tobacco e-Cigarette/Vaping Use: Never Used Second Hand Smoke Exposure: Yes service: No Current occupational status: disabled Current occupational exposures/hazards: No Cognitive needs: No Hearing needs: No Vision needs: No Questionnaire Thrive Questionnaire Date Thrive assessed: 10/17/21 ZENY-7 AMB Questionnaire ZENY-7 Date ZENY - 7 assessed: 10/17/21 Source: Developed by Drs. Bernardino Ahumada, Peri Valenica, Gordy Victoria and colleagues, with an educational hakeem from [employer]. Review of Systems Const Denies chills, Denies fatigue, Denies fever(s), Denies headache(s) and Denies weakness ENT Denies dizziness and Denies headache(s) Card Denies chest pain, Denies lightheadedness, Denies dyspnea and Denies other (Palpitations) Resp Denies cough, Denies dyspnea, Denies wheezing and Denies other ( shortness of breath) Musc Denies numbness and Denies tingling Neuro Denies dizziness, Denies headache(s), Denies numbness, Denies tingling, Denies paresthesias and Denies weakness Psych Denies anxiety and Denies depression Endo Denies fatigue Aller/Immun Denies wheezing Physical exam (Primary Care) Vital Signs: Last Vital Signs Temp 97.7 F 05/01/23 11:03 Pulse 84 05/01/23 11:03 Resp 12 05/01/23 11:03 BP 124/74 05/01/23 11:03 Pulse Ox 97 05/01/23 11:03 Oxygen Delivery Method Room Air 05/01/23 11:03 BMI result Body Mass Index 39.9 Tobacco/Smoking Status: Tobacco use Status Tobacco use date assessed 04/18/23 05/01/23 11:18 Patient Tobacco Use Status Never used Tobacco 05/01/23 11:18 e-Cigarette/Vaping Use Never Used 05/01/23 11:18 Thrive Assessment: Date of Thrive Assessment Date Thrive assessed 10/17/21 05/01/23 11:18 Const General: no acute distress and well developed Nutritional Appearance: well nourished Orientation/consciousness: patient oriented x3 HENMT Head: Yes normocephalic and Yes atraumatic Eyes General: appearance normal, both eyes and all related structures Pupils: Equal, round and reactive pupils present EOM: EOMs intact bilaterally Resp Effort & Inspection: normal respiratory effort Auscultation: clear to auscultation bilaterally Cardio Rate: regular rate Rhythm: regular rhythm Heart sounds: S1 normal heart sound present, S2 normal heart sound present, no gallops, no murmurs and no rubs Neuro General: patient oriented x3 and gait normal Cranial nerves: Yes Equal, round and reactive pupils present Psych Affect: normal affect Results AMB Hemoglobin A1c AMB Hemoglobin A1c 5.8 % Last Edit by Deonna Michaels on 05/01/23 12:59 Results Reviewed Results Reviewed: Laboratory Last Values Hgb A1c (Clinic) 5.8 % (4.0-6.0) 05/01/23 12:58 Assessment and Plan Assessment & Plan (1) Elevated liver enzymes: Code(s): R74.8 - Abnormal levels of other serum enzymes Plan: Liver?enzymes?are?back?within ?normal?range (2) Hyperlipidemia: Code(s): E78.5 - Hyperlipidemia, unspecified Plan: Lipids?are?improved.??LDL?cholesterol?is?137. Triglycerides?are?mildly?elevated Encouraged?diet?lower?in?saturated?fats?and?cholesterol (3) Coronary atherosclerosis: Code(s): I25.10 - Atherosclerotic heart disease of [place] coronary artery without angina pectoris Plan: Stable (4) Elevated fasting glucose: Code(s): R73.01 - Impaired fasting glucose Plan: A1c?5.8%?which?is?in?pre?diabetes?range. Encouraged?a?diet?lower?in?sugars?and?starches. We?discussed?that?if?her?A1c?continues?to?climb?we?will?need?to?use?medication.??Patient?has?coronary?artery?disease?and?would?have?low?threshold?for?starting?an?oral?antihyperglycemic?medication. Coding Level of Care Code Est Pt Level 4 (57512) Diagnoses Elevated liver enzymes R74.8 Hyperlipidemia E78.5 Coronary atherosclerosis I25.10 Elevated fasting glucose R73.01
== END 2023-05-01 13:07 | disposition home or self-care (01) ==
PROVIDERS: PCP Family Medicine; Visit Provider Family Medicine
DX: R74.8 Abnormal levels of other serum enzymes (principal); E78.5 Hyperlipidemia, unspecified; I25.10 Atherosclerotic heart disease of native coronary artery without angina pectoris; R73.01 Impaired fasting glucose
CPT/HCPCS: 99214

== ENCOUNTER 2023-07-12 11:02 | Outpatient (AMB) | payer OTHER, SELFPAY ==
[2023-07-12 11:10] VITALS: BP 140/82; PULSE 80; TEMP 36.6; O2SAT 98; BMI 39.4
--- NOTE | 2023-07-12 11:10 | A.OFFPC_ITS ---
Vital Signs 07/12/23 11:10 Height 4 ft 11 in Weight 195 lb 4 oz BMI 39.4 BP 140/82 H Blood Pressure Location Rt brachial Position Sitting Pulse 80 Pulse Source Pulse Oximeter Temp 97.9 F Temp Source Temporal Artery Scan Pulse Oximetry (%) 98 Oxygen Delivery Method Room Air Intake Visit Reasons: cold symptoms, see commens Intake Note: Patient is here with cough, fever, diarrhea, chills, stomach upset since the day after . Allergies Penicillins [PENICILLINS] Allergy (Severe, Verified 07/12/23 11:18) ANAPHYLAXIS simvastatin Allergy (Mild, Verified 07/12/23 11:18) weird feeling ibuprofen Adverse Reaction (Intermediate, Verified 07/12/23 11:18) stomach upset, irritates Chrohn's Tobacco use date assessed: 07/12/23 HPI cold symptoms, see commens HPI Details 53 y/o female presents with complaints o f a cough. She reports she caught a viral illness around [place]. She notes symptoms other than the cough improved. [facility] Medical History Tubular adenoma Chronic idiopathic constipation Crohn disease Unspecified asthma, uncomplicated Dysuria Surgical History Hx of colonoscopy History of esophagogastroduodenoscopy (EGD) No pertinent past surgical history Family History Father Suicide Mother Hypertension Diabetes Paternal Grandmother Stroke Brother In good health Sister In good health Social History Housing: Other Housing Other:: mobile home Alcohol intake: current Alcohol intake frequency: does not drink Patient Tobacco Use Status: Never used Tobacco e-Cigarette/Vaping Use: Never Used Second Hand Smoke Exposure: Yes service: No Current occupational status: disabled Current occupational exposures/hazards: No Cognitive needs: No Hearing needs: No Vision needs: No Questionnaire Thrive Questionnaire Date Thrive assessed: 10/17/21 ZENY-7 AMB Questionnaire ZENY-7 Date ZENY - 7 assessed: 10/17/21 Source: Developed by Drs. Bernardino Ahumada, Peri Valencia, Gordy Victoria and colleagues, with an educational hakeem from [employer]. Review of Systems Const Denies chills, Denies fatigue, Denies fever(s), Denies headache(s) and Denies weakness ENT Denies dizziness and Denies headache(s) Card Denies chest pain, Denies lightheadedness, Denies dyspnea and Denies other (Palpitations) Resp Denies cough, Denies dyspnea, Denies wheezing and Denies other ( shortness of breath) Musc Denies numbness and Denies tingling Neuro Denies dizziness, Denies headache(s), Denies numbness, Denies tingling, Denies paresthesias and Denies weakness Psych Denies anxiety and Denies depression Endo Denies fatigue Aller/Immun Denies wheezing Physical exam (Primary Care) Vital Signs: Last Vital Signs Temp 97.9 F 07/12/23 11:10 Pulse 80 07/12/23 11:10 BP 140/82 H 07/12/23 11:10 Pulse Ox 98 07/12/23 11:10 Oxygen Delivery Method Room Air 07/12/23 11:10 BMI result Body Mass Index 39.4 Tobacco/Smoking Status: Tobacco use Status Tobacco use date assessed 07/12/23 07/12/23 11:25 Patient Tobacco Use Status Never used Tobacco 07/12/23 11:25 e-Cigarette/Vaping Use Never Used 07/12/23 11:25 Thrive Assessment: Date of Thrive Assessment Date Thrive assessed 10/17/21 07/12/23 11:25 Const General: no acute distress and well developed Nutritional Appearance: well nourished Orientation/consciousness: patient oriented [facility] Head: Yes normocephalic and Yes atraumatic Eyes General: appearance normal, both eyes and all related structures Pupils: Equal, round and reactive pupils present EOM: EOMs intact bilaterally Resp Other: Coarse breath sounds with rattling/secretions Effort & Inspection: normal respiratory effort Auscultation: not clear to auscultation bilaterally Cardio Rate: regular rate Rhythm: regular rhythm Heart sounds: S1 normal heart sound present, S2 normal heart sound present, no gallops, no murmurs and no rubs Neuro General: patient oriented x3 and gait normal Cranial nerves: Yes Equal, round and reactive pupils present Psych Affect: normal affect Assessment and Plan Assessment & Plan (1) Cough: Code(s): R05.9 - Cough, unspecified Plan: Likely?bronchitis Will?give?her?a?Z- Isma?and?offered?prednisone?but?patient?has?had?trouble?with?prednisone?in?the?[place] [facility]. She?can?continue?using?her?albuterol?inhaler Advised?humidified?air Advised?plenty?of?fluids?and?rest Coding Level of Care Code Est Pt Level 3 (77188) Diagnoses Cough R05.9
== END 2023-07-12 12:17 | disposition home or self-care (01) ==
PROVIDERS: PCP Family Medicine; Visit Provider Family Medicine
DX: R05.9 Cough, unspecified (principal)
CPT/HCPCS: 99213

== ENCOUNTER 2023-07-31 10:33 | Outpatient (AMB) | payer OTHER, SELFPAY ==
[2023-07-31 10:49] VITALS: BP 120/68; BMI 39.6
--- NOTE | 2023-07-31 10:49 | A.OFFPC_ITS ---
Vital Signs 07/31/23 10:49 Height 4 ft 11 in Weight 196 lb 4 oz BMI 39.6 BP 120/68 Blood Pressure Location Lt brachial Position Sitting Intake Visit Reasons: follow up pre diabetes Intake Note: Patient is here to follow up on prediabetes. Patient is requesting check up labs today. Allergies Penicillins [PENICILLINS] Allergy (Severe, Verified 07/31/23 10:50) ANAPHYLAXIS simvastatin Allergy (Mild, Verified 07/31/23 10:50) weird feeling ibuprofen Adverse Reaction (Intermediate, Verified 07/31/23 10:50) stomach upset, irritates Chrohn's Tobacco use date assessed: 07/31/23 HPI follow up pre diabetes HPI Details 53 y/o female presents to f/u pre-diabet es. A1c today 07/31/23 5.7%. Pt continues to work on exercise. She notes cough has been slightly better. She states cough might be from some postnasal drip. HPI Comments History of Present Illness Details Documentation assistance for Layton Ward MD, was provided by Jeyson Aviles,? Stick Inserter on 07/31/2023 11:39 AM EST. I, Dr. Ward, have read, observed, and verified documentation.? [facility] Medical History Tubular adenoma Chronic idiopathic constipation Crohn disease Unspecified asthma, uncomplicated Dysuria Surgical History Hx of colonoscopy History of esophagogastroduodenoscopy (EGD) No pertinent past surgical history Family History Father Suicide Mother Hypertension Diabetes Paternal Grandmother Stroke Brother In good health Sister In good health Social History Housing: Other Housing Other:: mobile home Alcohol intake: current Alcohol intake frequency: does not drink Patient Tobacco Use Status: Never used Tobacco e-Cigarette/Vaping Use: Never Used Second Hand Smoke Exposure: Yes service: No Current occupational status: disabled Current occupational exposures/hazards: No Cognitive needs: No Hearing needs: No Vision needs: No Questionnaire Thrive Questionnaire Date Thrive assessed: 10/17/21 ZENY-7 AMB Questionnaire ZENY-7 Date ZENY - 7 assessed: 10/17/21 Source: Developed by Drs. Bernardino Ahumada, Peri Valecnia, Gordy Victoria and colleagues, with an educational hakeem from [employer]. Review of Systems Const Denies chills, Denies fatigue, Denies fever(s), Denies headache(s) and Denies weakness ENT Denies dizziness and Denies headache(s) Card Denies dyspnea Resp Denies cough, Denies dyspnea, Denies wheezing and Denies other (shortness of breath) Musc Denies numbness and Denies tingling Neuro Denies dizziness, Denies headache(s), Denies numbness, Denies tingling and Denies weakness Psych Denies anxiety and Denies depression Endo Denies fatigue Aller/Immun Denies wheezing Physical exam (Primary Care) Vital Signs: Last Vital Signs BP 120/68 07/31/23 10:49 BMI result Body Mass Index 39.6 Tobacco/Smoking Status: Tobacco use Status Tobacco use date assessed 07/31/23 07/31/23 10:51 Patient Tobacco Use Status Never used Tobacco 07/31/23 10:51 e-Cigarette/Vaping Use Never Used 07/31/23 10:51 Thrive Assessment: Date of Thrive Assessment Date Thrive assessed 10/17/21 07/31/23 10:51 Const General: well developed; No acute distress Nutritional Appearance: well nourished Orientation/consciousness: patient oriented x3 HENMT Head: Yes normocephalic and Yes atraumatic Eyes General: appearance normal, both eyes and all related structures Pupils: Equal, round and reactive pupils present EOM: EOMs intact bilaterally Resp Effort & Inspection: normal respiratory effort Auscultation: clear to auscultation bilaterally Cardio Rate: regular rate Rhythm: regular rhythm Heart sounds: S1 normal heart sound present, S2 normal heart sound present, no gallops, no murmurs and no rubs Neuro General: patient oriented x3 and gait normal Cranial nerves: Yes Equal, round and reactive pupils present Psych Affect: normal affect Results AMB Hemoglobin A1c AMB Hemoglobin A1c 5.7 % Last Edit by Dari Burch CMA on 07/31/23 11:23 Results Reviewed Results Reviewed: Laboratory Last Values Hgb A1c (Clinic) 5.7 % (4.0-6.0) 07/31/23 11:09 Assessment and Plan Assessment & Plan (1) Pre-diabetes: Code(s): R73.03 - Prediabetes Plan: A1c?improved?slightly.??Still?in?pre?diabetes?range Continue?to?work?at?a?diet?lower?in?sugars?and?starches (2) Cough: Code(s): R05.9 - Cough, unspecified Plan: Slowly?improving No?evidence?current?infection (3) Back pain: Code(s): M54.9 - Dorsalgia, unspecified Plan: History?of?ankylosing?spondylosis?and?she?takes?Humira - followed?by?Rheumatology?in?[place] Can?likely?resume?Humira.??Follow-up?with?rheumatology?as?recommended Orders: Orders Comprehensive Met. Panel Today R73.03 - Prediabetes Complete Blood Count Auto Diff Today R05.9 - Cough, unspecified, Z00.00 - Encou nter for general adult medical examination without abnormal findings UA and rflx microscopic Today R73.03 - Prediabetes, Z00.00 - Encounter for general adult medical examination without abnormal findings AMB Hemoglobin A1c Today Z13.9 - Encounter for screening, unspecified Coding Level of Care Code Est Pt Level 3 (08117) Diagnoses Pre-diabetes R73.03 Cough R05.9 Back pain M54.9
== END 2023-07-31 12:26 | disposition home or self-care (01) ==
PROVIDERS: PCP Family Medicine; Visit Provider Family Medicine
DX: R73.03 Prediabetes (principal); R05.9 Cough, unspecified; M54.9 Dorsalgia, unspecified
CPT/HCPCS: 83036; 99213

== ENCOUNTER 2023-07-31 12:28 | Outpatient (REF) | payer OTHER, SELFPAY ==
[2023-07-31 14:22] LABS: Appearance Urine Clear; Color Urine Yellow; Glucose Urine UA Negative (Negative); Leukocyte Esterase Urine Negative (Negative); MANUAL DIFF FLAG NO; Nitrite Urine Negative (Negative); Urine Blood Negative (Negative); Urine Ketones Negative (Negative); Urine Protein Negative (Neg-Trace)
[2023-07-31 14:25] LABS: Basophils Percent Auto 0.6 % (0-2); Eosinophils Absolute Auto 0.1 X10*3/uL (0.0-0.4); Hematocrit 40.1 % (37.0-47.0); Hemoglobin 13.5 g/dl (12.0-16.0); Imm Gran Abs Auto 0.02 X10*3/uL (0.00-0.03); Imm Gran Pct Auto 0.3 % (0.0-0.4); Lymphocytes Absolute Auto 2.2 X10*3/uL (1.2-4.9); Lymphocytes Percent Auto 31.3 % (20-40); Mean Corpuscular HGB Conc 33.7 g/dl (31.0-35.0); Mean Corpuscular Hemoglobin 27.4 pg (27.0-33.0); Mean Corpuscular Volume 81.3 fL (80.0-98.0); Mean Platelet Volume 9.8 fL (9.4-12.3); Monocytes Absolute Auto 0.6 X10*3/uL (0.1-1.2); Monocytes Percent Auto 8.4 % (2-11); Neutrophils Absolute Auto 4.1 x10*3/uL (2.0-8.3); Neutrophils Percent Auto 57.4 % (45-73); Platelet Count 277 X10*3/uL (160-400); Red Blood Count 4.93 X10*6/uL (4.20-5.50); White Blood Count 7.2 X10*3/uL (4.8-10.8)
[2023-07-31 14:56] LABS: Microalbumin Urine < 5.0 mg/L
[2023-07-31 16:55] LABS: Alanine Aminotransferase 23 U/L (0-31); Albumin Level 4.2 g/dL (3.5-5.0); Alkaline Phosphatase 69 U/L (39-117); Anion Gap 11 (12-20); Aspartate Amino Transferase 28 U/L (5-31); Bilirubin Total 0.7 mg/dL (0.0-1.0); Blood Urea Nitrogen 8 mg/dL (9-16); Calcium 9.4 mg/dL (8.4-10.2); Carbon Dioxide 28 mmol/L (22-29); Chloride 104 mmol/L (96-108); Cholesterol 162 mg/dL (<200); Estimated Glomerular Filt Rate > 60; Glucose Random 102 mg/dL (60-115); HDL Cholesterol 50 mg/dL (>40); LDL Cholesterol Calculated 87 mg/dL (<100); Potassium 4.2 mmol/L (3.3-5.1); Sodium 139 mmol/L (135-145); Total Protein 7.2 g/dL (6.5-8.0); Triglycerides 126 mg/dL (<150)
[2023-07-31 17:01] LABS: TSH reflex Free T4 1.62 uIU/mL (0.32-4.0)
== END 2023-07-31 12:29 | disposition home or self-care (01) ==
LOC: HO.WFDLDS 12:28
PROVIDERS: Visit Provider Family Medicine
DX: Z00.00 Encounter for general adult medical examination without abnormal findings (principal); R05.9 Cough, unspecified; R73.03 Prediabetes; I10 Essential (primary) hypertension
CPT/HCPCS: 36415; 80053; 80061; 81003; 82570; 84443; 85025

== ENCOUNTER 2023-08-30 13:31 | Outpatient (AMB) | payer OTHER, SELFPAY ==
--- NOTE | 2023-08-30 13:19 | A.OFFPC_ITS ---
Intake Visit Reasons: f/u labs Intake Note: Patient is following up on labs today. She would like to discuss med for diverticulitis. Allergies Penicillins [PENICILLINS] Allergy (Severe, Verified 08/30/23 13:21) ANAPHYLAXIS simvastatin Allergy (Mild, Verified 08/30/23 13:21) weird feeling ibuprofen Adverse Reaction (Intermediate, Verified 08/30/23 13:21) stomach upset, irritates Chrohn's Tobacco use date assessed: 07/31/23 HPI f/u labs HPI Details Telemedicine?appointment?to?follow-up?labs She?also?notes?aykaa t?she?had?a?recent?[facility]?ED?visit?for?diverticulitis.??She?was?prescrib ed?ciprofloxacin?and?metronidazole. She?has?been?apprehensive?about?taking?these?but?says?she?is?already?feeling?bet ter. Her?labs?were?all?okay?except?LDL?cholesterol?has?climbed?again?to?87.??She?has? a?history?of?coronary?artery?disease?and?goal?is?less?than?70 Taking?rosuvastatin?as?prescribed PFSH Medical History Tubular adenoma Chronic idiopathic constipation Crohn disease Unspecified asthma, uncomplicated Dysuria Surgical History Hx of colonoscopy History of esophagogastroduodenoscopy (EGD) No pertinent past surgical history Family History Father Suicide Mother Hypertension Diabetes Paternal Grandmother Stroke Brother In good health Sister In good health Social History Housing: Other Housing Other:: mobile home Alcohol intake: current Alcohol intake frequency: does not drink Patient Tobacco Use Status: Never used Tobacco e-Cigarette/Vaping Use: Never Used Second Hand Smoke Exposure: Yes service: No Current occupational status: disabled Current occupational exposures/hazards: No Cognitive needs: No Hearing needs: No Vision needs: No Questionnaire PHQ-9 Over the last 2 weeks, how often have you been bothered by any of the following problems? 1. Little interest or pleasure in doing things: several days 2. Feeling down, depressed, or hopeless: several days 3. Trouble falling or staying asleep, or sleeping too much: several days 4. Feeling tired or having little energy: not at all 5. Poor appetite or overeating: several days 6. Feeling bad about yourself - or that you are a failure or have let yourself or your family down: several days 7. Trouble concentrating on things, such as reading the newspaper or watching television: several days 8. Moving or speaking so slowly that other people could have noticed. Or the opposite - being so fidgety or restless that you have been moving around a lot more than usual: several days 9. Thoughts that you would be better off or of hurting yourself in some way: not at all Total score: 7 Source: Developed by Drs. Bernardino Ahumada, Peri Valencia, Gordy Victoria and colleagues, with an educational hakeem from [employer]. Thrive Questionnaire Date Thrive assessed: 10/17/21 AUDIT C Alcohol Use Questionnaire (AUDIT-C) 1. How often do you have a drink containing alcohol?: Never 3. How often do you have six or more drinks on one occasion?: Never Total Score: 0 ZENY-7 AMB Questionnaire ZENY-7 Date ZENY - 7 assessed: 08/30/23 Feeling nervous, anxious, or on edge: 1 = Several days Not being able to stop or control worryin = Not at all Worrying too much about different things: 1 = Several days Trouble relaxin = Several days Being so restless that it is hard to sit still: 1 = Several days Becoming easily annoyed or irritable: 1 = Several days Feeling afraid as if something awful might happen: 1 = Several days Total ZENY-7 score (0-4 normal; 5-9 mild; 10-14 moderate; 15-21 severe): 6 Source: Developed by Drs. Bernardino Ahumada, Peri Valencia, Gordy Victoria and colleagues, with an educational hakeem from [employer]. Review of Systems Const Denies chills, Denies fatigue, Denies fever(s), Denies headache(s) and Denies weakness ENT Denies dizziness and Denies headache(s) Card Denies chest pain, Denies lightheadedness, Denies dyspnea and Denies other (Palpitations) Resp Denies cough, Denies dyspnea, Denies wheezing and Denies other ( shortness of breath) Musc Denies numbness and Denies tingling Neuro Denies dizziness, Denies headache(s), Denies numbness, Denies tingling, Denies paresthesias and Denies weakness Psych Denies anxiety and Denies depression Endo Denies fatigue Aller/Immun Denies wheezing Physical exam (Primary Care) Tobacco/Smoking Status: Tobacco use Status Tobacco use date assessed 07/31/23 08/30/23 13:22 Patient Tobacco Use Status Never used Tobacco 08/30/23 13:22 e-Cigarette/Vaping Use Never Used 08/30/23 13:22 PHQ-9: PHQ-9 Score PHQ-9: Total score 7 08/30/23 13:25 Thrive Assessment: Date of Thrive Assessment Date Thrive assessed 10/17/21 08/30/23 13:22 Telehealth Telehealth Location of provider rendering services: practice address Location of patient: address on file Patient Identification confirmed using: Name, : Yes Telehealth method: voice only Patient verbally consented to treatment: Yes Patient verbally consented to billing insurance company: Yes Patient informed of any privacy concerns related to visit: Yes Minutes spent on Phone/Video with Pt.: 6 Assessment and Plan Assessment & Plan (1) Diverticulitis: Code(s): K57.92 - Diverticulitis of intestine, part unspecified, without perforation or abscess without bleeding Plan: Encouraged?her?to?take?medication?given?at?the?emergency ?department;?ciprofloxacin?and?metronidazole. Continue?to?hydrate?well?and?take?small?meals?until?feeling?better Call?or?come?to?office?if?worsening. (2) Coronary atherosclerosis: Code(s): I25.10 - Atherosclerotic heart disease of [place] coronary artery without angina pectoris Plan: LDL?cholesterol?has?risen?again?to?87. Continue?rosuvastatin?and?work?at?a?diet?lower?in?saturated?fats?and?cholesterol We?can?discuss?addition?of?Zetia?at?a?subsequent?visit?if?needed. Coding Level of Care Code Tele Est Pt Level 2 (79947) Diagnoses Diverticulitis K57.92 Coronary atherosclerosis I25.10
== END 2023-08-30 14:00 | disposition home or self-care (01) ==
LOC: HO.HMGFM 13:31
PROVIDERS: PCP Family Medicine; Visit Provider Family Medicine
DX: K57.92 Diverticulitis of intestine, part unspecified, without perforation or abscess without bleeding (principal); I25.10 Atherosclerotic heart disease of native coronary artery without angina pectoris
CPT/HCPCS: 99441

== ENCOUNTER 2023-08-31 11:20 | Emergency (ER) | payer OTHER, SELFPAY ==
--- NOTE | 2023-08-31 11:22 | ED_ITS ---
HPI - General Adult General Chief complaint: Abdominal Pain Stated complaint: diverticulitis Time Seen by Provider: 08/31/23 12:19 Source: patient Mode of arrival: ambulatory Limitations: no limitations History of Present Illness HPI narrative: Patient is a 53 yr old female with a past medical history of Crohn's Disease, asthma, adenoma, depression presenting with loose stools and left lower abdominal pain for 1 week. Patient was seen at [facility] 1 week ago for abdominal pain and loose stools. She was diagnosed with diverticulitis and started on metronidiazole and ciprofloxicin. Patient reports that she has anxiety surrounding taking antibiotics. So thats why she is here she wants us to be there when she takes them to know if she reacts. No previous hx of allergies to either one of these meds. Tollerating po. No fevers, chills, cp, sob, nauase, vomiting. Does feel anxious surrounding Related Data Home Medications Medication Instructions Recorded Confirmed montelukast 10 mg tablet 10 mg PO DAILY 07/12/20 01/08/23 lamotrigine 100 mg tablet 100 mg PO DAILY 10/19/20 01/08/23 lorazepam 0.5 mg tablet 0.5 mg PO BID PRN anxiety 10/19/20 01/08/23 cranberry extract 250 mg capsule 250 mg PO DAILY 03/31/21 01/08/23 adalimumab 40 mg/0.4 mL 40 mg subcut Q2W 10/24/21 01/08/23 subcutaneous pen kit (Humira(CF) Pen) azelastine 205.5 mcg (0.15 %) intranasal 01/08/23 01/08/23 nasal spray coenzyme Q10 50 mg capsule (Co 50 mg PO DAILY 01/08/23 01/08/23 Q-10) budesonide 32 mcg/actuation nasal 1 spray intranasal DAILY 05/01/23 spray lamotrigine 100 mg tablet 100 mg PO DAILY 05/01/23 (Lamictal) omeprazole 40 mg capsule,delayed 40 mg PO DAILY 05/01/23 release Previous Rx's Medication Instructions Recorded albuterol sulfate 2.5 mg/3 mL 2.5 mg (3 mL) inhalation Q4-6H PRN 05/23/21 (0.083 %) solution for nebulization shortness of breath or wheezing 30 days #180 mL albuterol sulfate 90 mcg/actuation 2 puff inhalation QID PRN wheezing 05/23/21 aerosol inhaler #6.7 grams epinephrine 0.3 mg/0.3 mL 0.3 mg (0.3 mL) IM Q10M PRN 05/23/21 injection, auto-injector (EpiPen anaphylaxis #2 ea 2-Isma) budesonide 32 mcg/actuation nasal 2 spray intranasal DAILY 3 months 07/06/21 spray #3 inhalers loratadine 10 mg tablet 10 mg PO DAILY 90 days #90 tabs 03/06/22 tizanidine 2 mg capsule 2 mg PO TID PRN muscle spasm 30 03/06/22 days #90 caps clotrimazole 1 % vaginal cream 1 appful vaginal BEDTIME 7 days 08/24/22 #45 grams polyethylene glycol 3350 17 gram 17 g PO DAILY 7 days #7 ea 08/24/22 oral powder packet (Miralax) nystatin 100,000 unit/mL oral 5 ml PO DAILY 10 days #50 mL 09/25/22 suspension mesalamine 400 mg capsule (with 1,200 mg (3 x 400 mg) PO BID #120 03/18/23 delayed release tablets inside) ea pantoprazole 40 mg tablet,delayed 40 mg PO QAM #30 tabs 05/06/23 release rosuvastatin 40 mg tablet 40 mg PO DAILY #90 tabs 07/22/23 cholecalciferol (vitamin D3) 50 50 mcg PO DAILY 3 months #90 tabs 07/31/23 mcg (2,000 unit) tablet cyanocobalamin (vitamin B-12) 1,000 mcg PO DAILY 30 days #90 tabs 07/31/23 1,000 mcg tablet docusate sodium 100 mg capsule 200 mg (2 x 100 mg) PO BID 3 07/31/23 months #360 caps Allergies Allergy/AdvReac Type Severity Reaction Status Date / Time Penicillins [PENICILLINS] Allergy Severe ANAPHYLAXIS Verified 08/31/23 11:24 simvastatin Allergy Mild weird Verified 08/31/23 11:24 feeling ibuprofen AdvReac Intermediate stomach Verified 08/31/23 11:24 upset, irritates Bryant's Review of Systems 2 Review of Systems: Constitutional : No Weight loss, No Fever, No Chills, No Fatigue, No Malaise ENT/Mouth : No sore throat, No Rhinorrhea Eyes: No Eye Pain, No Swelling, No Redness Cardiovascular : No Chest Pain, No SOB, No Dyspnea on Exertion, No Orthopnea, No Edema, No Palpitations Respiratory : No Cough, No Sputum, No Wheezing Gastrointestinal : No Nausea, No Vomiting, + Diarrhea, No Constipation, + abdominal Pain, No Hematochezia, No Melena Genitourinary : No Dysuria, No Urinary Frequency, No Hematuria, Musculoskeletal : No joint pain, No Myalgias, No Joint Swelling Skin : No Skin Lesions, No rash Neuro : No Weakness, No Numbness, No Dizziness, No Headache Psych : No Anxiety/Panic, No Depression All other systems reviewed and are negative Yes all other systems are reviewed and are negative [facility] Past Medical History Attestation statement: The following information was validated with the patient. Source: old records reviewed and nursing notes reviewed Medical History Tubular adenoma Chronic idiopathic constipation Crohn disease Unspecified asthma, uncomplicated Dysuria Surgical History Hx of colonoscopy History of esophagogastroduodenoscopy (EGD) No pertinent past surgical history Family History Family History Father Suicide Mother Hypertension Diabetes Paternal Grandmother Stroke Brother In good health Sister In good health Social History Social History Housing: Other Housing Other:: mobile home Alcohol intake: current Alcohol intake frequency: does not drink Patient Tobacco Use Status: Never used Tobacco Smoked in Last 30 Days: No e-Cigarette/Vaping Use: Never Used Second Hand Smoke Exposure: Yes Use of substances other than those prescribed or required for medical reasons: No Advance Directives: No Advance Directives Information Provided: No service: No Current occupational status: disabled Current occupational exposures/hazards: No Cognitive needs: No Hearing needs: No Vision needs: No Physical Exam ED Vital Signs: Vital Signs - 24 hr 08/31/23 11:24 08/31/23 11:43 08/31/23 14:12 Temperature 98.3 F 98 F 98.2 F Pulse Rate 95 84 77 Respiratory Rate 16 18 16 Blood Pressure 150/87 H 149/76 H 125/87 Pulse Oximetry 96 95 98 Oxygen Delivery Method Room Air Room Air BMI result Body Mass Index 37.6 vss Appearance: Alert.? Oriented X3.? No acute distress.? Head: Normocephalic, atraumatic, no step-offs or deformities Eyes: Pupils equal, round and reactive to light.? ENT: Pharynx normal.? Neck: Normal inspection.? Neck supple.? CVS: Normal heart rate and rhythm.? Pulses normal.? Respiratory: No respiratory distress.? Breath sounds normal.? Abdomen: Soft and mild left lower quadrant pain..? Skin: Skin warm and dry.? Normal skin color.? Normal skin turgor.? Extremities: No lower extremity edema.? No calf ttp. 5/5 strength to bilateral upper and lower extremities Neuro: Oriented X 3.? No motor deficit.? No sensory deficit. CN 2-12 intact Course Course Course Narrative: RME:?53 yo female w/ hx of restless leg syndrome, vitamin D deficiency, vitamin B12 deficiency, psoriasis, frequent UTIs here for eval of feeling off . Evaluated at [facility] 7 days ago for same symptoms + abdominal pain, diagnosed with sigmoid diverticulitis, received IVF and discharged with cipro and flagyl with PCP follow up. States she has not taken any of these antibiotics because I do not feel comfortable . She is denying any abdominal pain. Endorsing nausea without vomiting. Last BM this morning. Denies fever, chills, flank pain, hematochezia, melena constipation, diarrhea, dysuria, hematuria. Plan for labs, +/- imaging Full HPI, ROS and PE to be performed by the primary ED provider. Reevaluation(s) Reevaluation #1: CBC unremarkable . No leukocytosis or anemia. Chemistry no acute findings requiring intervention. Lipase normal. UA without infection. Patient will take her home dose of Cipro and Flagyl. Advised her to stay for a little while for observation. She is very nervous to take these. Will monitor while she takes them. Patient does have an EpiPen at home and I explained to her if she has an adverse reaction afterwards she should take the EpiPen. However she does reassure me she has not had any previous issues with this medication in the past. Educated patient on diagnosis and treatment plan, answered all question, patient verbalizes understanding. At this time patient will be discharged home, advised to return with new or worsening symptoms. Educated on worrisome signs and symptoms and when to return. At this time I feel comfortable discharge home. Time: 15:35 Medical Decision Making Medical Decision Making [facility] Narrative: 53-year-old female presents with left lower quadrant abdominal pain and diarrhea, was seen at [facility] told she had diverticulitis however she is afraid to take the antibiotics. Physical exam mild left lower quadrant abdominal tenderness. Otherwise appears well. She is anxious This is likely diverticulitis that has not improving secondary to not having any antibiotics on board due to fear and anxiety. Unlikely acute abdomen, metabolic derangements. Will rule out metabolic derangements. Plan will give patient her home antibiotics and monitor. no need for repeat imaging as symptoms are unchanged Differential Diagnosis Differential Diagnoses: The differential diagnosis associated with the presentation includes This is likely diverticulitis that has not improving secondary to not having any antibiotics on board due to fear and anxiety. Unlikely acute abdomen, metabolic derangements. Will rule out metabolic derangements. Admission/Observation Consideration of admission/observation: Escalation of care including admission/observation considered unlikely Lab Data [facility] Lab Attestation statement: I reviewed the patient's lab results. 08/31/23 12:11 08/31/23 12:11 Labs: Lab Results 08/31/23 08/31/23 Range/Units 12:11 12:27 WBC 6.7 (4.8-10.8) X10*3/uL RBC 4.97 (4.20-5.50) X10*6/uL Hgb 14.0 (12.0-16.0) g/dl Hct 40.0 (37.0-47.0) % MCV 80.5 (80.0-98.0) fL MCH 28.2 (27.0-33.0) pg MCHC 35.0 (31.0-35.0) g/dl RDW 13.6 (11.0-16.0) % Plt Count 311 (160-400) X10*3/uL MPV 9.6 (9.4-12.3) fL Immature Gran % (Auto) 0.1 (0.0-0.4) % Neut % (Auto) 64.5 (45-73) % Lymph % (Auto) 27.0 (20-40) % [place] % (Auto) 7.0 (2-11) % Eos % (Auto) 1.0 (0-4) % Baso % (Auto) 0.4 (0-2) % Lymph # (Auto) 1.8 (1.2-4.9) X10*3/uL [place] # (Auto) 0.5 (0.1-1.2) X10*3/uL Eos # (Auto) 0.1 (0.0-0.4) X10*3/uL Baso # (Auto) 0.0 (0.0-0.2) X10*3/uL Abs Immat Gran (auto) 0.01 (0.00-0.03) X10*3/uL Absolute Neuts (auto) 4.3 (2.0-8.3) x10*3/uL Absolute Nucleated RBC 0.000 (0.0-0.012) X10*3/uL Nucleated RBC % (auto) 0.0 (0.0-0.2) /100WBC Sodium 143 (135-145) mmol/L Potassium 4.0 (3.3-5.1) mmol/L Chloride 107 (96-108) mmol/L Carbon Dioxide 25 (22-29) mmol/L Anion Gap 15 (12-20) BUN 4 L (9-16) mg/dL Creatinine 0.75 (0.5-1.4) mg/dL Estim Creat Clear Calc 85.2 Estimated GFR > 60 Random Glucose 113 (60-115) mg/dL Calcium 9.8 (8.4-10.2) mg/dL Magnesium 2.0 (1.6-2.6) mg/dL Total Bilirubin 0.7 (0.0-1.0) mg/dL AST 31 (5-31) U/L ALT 24 (0-31) U/L Alkaline Phosphatase 70 (39-117) U/L Total Protein 7.8 (6.5-8.0) g/dL Albumin 4.4 (3.5-5.0) g/dL Lipase 17 (8-78) U/L Urine Color Yellow Urine Appearance Clear Urine pH 8.0 (5.0-9.0) Ur Specific [place] 1.010 (1.005-1.025) Urine Protein Negative (Neg-Trace) mg/dL Urine Glucose (UA) Negative (Negative) mg/dL Urine Ketones Negative (Negative) mg/dL Urine Blood Negative (Negative) Urine Nitrite Negative (Negative) Ur Leukocyte Esterase Trace H (Negative) Urine RBC 0-2 (0-2) /HPF Urine WBC 0-5 (0-5) /HPF Ur Squamous Epith Cells 0-2 (0-2) /HPF Urine Bacteria None Seen (None Seen) Hyaline Casts 0-2 (0-2) /LPF COVID-19 (EVELYN) Negative (Negative) COVID-19 Clin Com See Note Influenza Type A (NILS) Negative (Negative) Influenza Type B (NILS) Negative (Negative) Influenza A & B Note See Note Independent Interpretation Interpretation: NO need for repeat imaging patient statese she had a scan at [facility] that dx diverticulitis Tests considered The following testing was considered but not selected: NO need for repeat imaging patient statese she had a scan at [facility] that dx diverticulitis Discharge Plan Discharge Clinical Impression: Diverticulitis, Anxiety, Diarrhea Patient Disposition: Home, Self-Care Instructions: Anxiety (ED), Acute Diarrhea (ED), Diverticulitis Diet (ED), Diverticulitis (ED) Additional Instructions: Take your medications as prescribed. If you were prescribed antibiotics today, it is important that you take your medication to their entirety, do not skip any doses, do not finish them early. Follow-up with your primary care provider this week. Return to the emergency department with new or worsening symptoms. Such as fevers, chills, chest pain, shortness of breath, nausea, vomiting, dizziness, headache, vision changes, lethargy In case of emergency call 911 Please take your medications as prescribed. If you experience any signs of anaphylaxis use your EpiPen then call 911 to be evaluated immediately. Prescriptions: No Action loratadine 10 mg tablet 10 mg PO DAILY 90 Days Qty: 90 3RF tizanidine 2 mg capsule 2 mg PO TID PRN (Reason: muscle spasm) 30 Days Qty: 90 2RF nystatin 100,000 unit/mL suspension 5 ml PO DAILY 10 Days Qty: 50 1RF Rx Instructions: swish and swallow mesalamine 400 mg capsule (with del rel tablets) 1,200 mg PO BID Qty: 120 3RF pantoprazole 40 mg tablet,delayed release (DR/EC) 40 mg PO QAM Qty: 30 2RF rosuvastatin 40 mg tablet 40 mg PO DAILY Qty: 90 0RF montelukast 10 mg tablet 10 mg PO DAILY lorazepam 0.5 mg tablet 0.5 mg PO BID PRN (Reason: anxiety) lamotrigine 100 mg tablet 100 mg PO DAILY cranberry extract 250 mg capsule 250 mg PO DAILY Rx Instructions: administer with a meal albuterol sulfate 2.5 mg /3 mL (0.083 %) solution for nebulization 2.5 mg inhalation Q4-6H PRN (Reason: shortness of breath or wheezing) 30 Days Qty: 180 3RF albuterol sulfate 90 mcg/actuation HFA aerosol inhaler 2 puff inhalation QID PRN (Reason: wheezing) Qty: 6.7 4RF epinephrine [EpiPen 2-Isma] 0.3 mg/0.3 mL auto-injector 0.3 mg IM Q10M PRN (Reason: anaphylaxis) Qty: 2 2RF Rx Instructions: for 2 doses polyethylene glycol 3350 [Miralax] 17 gram powder in packet 17 g PO DAILY 7 Days Qty: 7 0RF clotrimazole 1 % cream 1 appful vaginal BEDTIME 7 Days Qty: 45 0RF budesonide 32 mcg/actuation spray,non-aerosol 1 spray intranasal DAILY Rx Instructions: administer into each nostril omeprazole 40 mg capsule,delayed release(DR/EC) 40 mg PO DAILY lamotrigine [Lamictal] 100 mg tablet 100 mg PO DAILY cholecalciferol (vitamin D3) 50 mcg (2,000 unit) tablet 50 mcg PO DAILY 90 Days Qty: 90 3RF docusate sodium 100 mg capsule 200 mg PO BID 90 Days Qty: 360 1RF cyanocobalamin (vitamin B-12) 1,000 mcg tablet 1,000 mcg PO DAILY 30 Days Qty: 90 3RF budesonide 32 mcg/actuation spray,non-aerosol 2 spray intranasal DAILY 90 Days Qty: 3 2RF Humira(CF) Pen 40 mg/0.4 mL pen injector kit 40 mg subcut Q2W coenzyme Q10 [Co Q-10] 50 mg capsule 50 mg PO DAILY azelastine 205.5 mcg (0.15 %) spray,non-aerosol intranasal Referrals: Layton Ward MD [Primary Care Provider] - 2 days
[2023-08-31 11:24] VITALS: BP 150/87; PULSE 95; RESP 16; TEMP 36.8; O2SAT 96; BMI 37.6
[2023-08-31 11:43] VITALS: BP 149/76; PULSE 84; RESP 18; TEMP 36.6; O2SAT 95
--- NOTE | 2023-08-31 11:50 | PC.NURSE ---
Pt awake, alert and oriented. Pt appears anxious, reports feeling anxiety over the past week. Breathing even and unlabored. Skin warm and dry. Pt reports LLQ and RLQ pain X 10 days, describes as gnawing and constant. Pt seen at [facility] 7 days ago and was diagnosed with diverticulitis, did not take the meds prescribed. Pt denies nausea, vomiting, blood in stool, CP or SOB. Pt reports she has been experiencing periods of her heart racing over the past few days. No acute signs of resp distress noted. ABD soft, non-distended. No issues urinating. Pt reports not eating solid foods for last 3 days.
[2023-08-31 12:19] LABS: MANUAL DIFF FLAG NO
[2023-08-31 12:20] LABS: Basophils Percent Auto 0.4 % (0-2); Eosinophils Absolute Auto 0.1 X10*3/uL (0.0-0.4); Imm Gran Abs Auto 0.01 X10*3/uL (0.00-0.03); Imm Gran Pct Auto 0.1 % (0.0-0.4); Lymphocytes Absolute Auto 1.8 X10*3/uL (1.2-4.9); Mean Corpuscular Hemoglobin 28.2 pg (27.0-33.0); Mean Corpuscular Volume 80.5 fL (80.0-98.0); Mean Platelet Volume 9.6 fL (9.4-12.3); Monocytes Absolute Auto 0.5 X10*3/uL (0.1-1.2); Neutrophils Absolute Auto 4.3 x10*3/uL (2.0-8.3); Neutrophils Percent Auto 64.5 % (45-73); Platelet Count 311 X10*3/uL (160-400); Red Blood Count 4.97 X10*6/uL (4.20-5.50); Red Cell Distribution Width 13.6 % (11.0-16.0); White Blood Count 6.7 X10*3/uL (4.8-10.8)
[2023-08-31 12:34] LABS: Appearance Urine Clear; Color Urine Yellow; Glucose Urine UA Negative (Negative); Leukocyte Esterase Urine Trace (Negative); Nitrite Urine Negative (Negative); UMIC TRIGGER UACC YES; Urine Blood Negative (Negative); Urine Ketones Negative (Negative); Urine Protein Negative (Neg-Trace)
[2023-08-31 12:36] LABS: Bacteria Urine None Seen (None Seen); Hyaline Casts Urine 0-2 /LPF (0-2); RBC Urine 0-2 /HPF (0-2); Squamous Epithelial Cell Urine 0-2 /HPF (0-2); WBC Urine 0-5 /HPF (0-5)
[2023-08-31 12:42] LABS: COVID-19 Test Negative (Negative); IDNOW Serial# 08D9AD1C; IDNOW Serial# 152EDE1D; Influenza A Negative (Negative); Influenza B2 Negative (Negative)
[2023-08-31 13:13] LABS: Alanine Aminotransferase 24 U/L (0-31); Albumin Level 4.4 g/dL (3.5-5.0); Alkaline Phosphatase 70 U/L (39-117); Anion Gap 15 (12-20); Aspartate Amino Transferase 31 U/L (5-31); Bilirubin Total 0.7 mg/dL (0.0-1.0); Blood Urea Nitrogen 4 mg/dL (9-16); Calcium 9.8 mg/dL (8.4-10.2); Carbon Dioxide 25 mmol/L (22-29); Chloride 107 mmol/L (96-108); Creatinine Clr Calc Pharmacy 85.2; Estimated Glomerular Filt Rate > 60; Glucose Random 113 mg/dL (60-115); Lipase 17 U/L (8-78); Sodium 143 mmol/L (135-145); Total Protein 7.8 g/dL (6.5-8.0)
[2023-08-31 14:12] VITALS: BP 125/87; PULSE 77; RESP 16; TEMP 36.8; O2SAT 98
[2023-08-31 15:40] VITALS: BP 145/84; PULSE 83; RESP 16; TEMP 36.7; O2SAT 97
--- NOTE | 2023-08-31 16:08 | PC.NURSE ---
Pt anxious regarding new medications, pt reassured. This RN and PA agreeable to have pt take abx prescribed from [facility] here and monitor to ease anxiety. Cipro crushed per request and placed in applesauce.
== END 2023-08-31 17:42 | disposition home or self-care (01) ==
PROVIDERS: Physician Assistant Medical; Emergency Provider Emergency Medicine; PCP Family Medicine
DX: K57.92 Diverticulitis of intestine, part unspecified, without perforation or abscess without bleeding (principal); F41.9 Anxiety disorder, unspecified; R19.7 Diarrhea, unspecified; R10.32 Left lower quadrant pain; Z11.52 Encounter for screening for COVID-19; K50.90 Crohn's disease, unspecified, without complications; E78.5 Hyperlipidemia, unspecified; Z79.02 Long term (current) use of antithrombotics/antiplatelets; Z79.899 Other long term (current) drug therapy
CPT/HCPCS: 36415; 80053; 81001; 83690; 83735; 85025; 87502; 87635; 99283; 99284

== ENCOUNTER 2023-09-02 12:07 | Outpatient (AMB) | payer OTHER, SELFPAY ==
--- NOTE | 2023-09-02 12:32 | MHC.PC.OV ---
Vital Signs 09/02/23 12:34 Height 5 ft Weight 190 lb BMI 37.1 BP 110/80 Blood Pressure Location Lt brachial Position Sitting Pulse 81 Pulse Source Pulse Oximeter Pulse Oximetry (%) 97 Oxygen Delivery Method Room Air Intake Visit Reasons: ed /diverticulitis Intake Note: Patient is here to follow-up after a visit the emergency department at [facility] on 08/30/23, then [facility] ER on 08/31/23. Landscape Horticulture Instructor Required: No Parks And Recreation Worker: Present Accompanied by: Friend Allergies Penicillins [PENICILLINS] Allergy (Severe, Verified 09/02/23 12:53) ANAPHYLAXIS simvastatin Allergy (Mild, Verified 09/02/23 12:53) weird feeling ibuprofen Adverse Reaction (Intermediate, Verified 09/02/23 12:53) stomach upset, [facility]ates [facility] - Last Reconciled 09/02/23 by SUKHDEV Cristobal-BC adalimumab (Humira(CF) Pen) 40 mg subcut Q2W albuterol sulfate 90 mcg/actuation 2 puffs inhalation QID PRN albuterol sulfate 2.5 mg (3 mL) inhalation Q4-6H PRN 30 days azelastine intranasal budesonide 32 mcg/actuation 1 spray intranasal DAILY cholecalciferol (vitamin D3) 50 mcg PO DAILY 3 months clotrimazole 1% 1 appful vaginal BEDTIME 7 days coenzyme Q10 (Co Q-10) 50 mg PO DAILY cranberry extract 250 mg PO DAILY cyanocobalamin (vitamin B-12) 1,000 mcg PO DAILY 30 days docusate sodium 200 mg (2 x 100 mg) PO BID 3 months epinephrine (EpiPen 2-Isma) 0.3 mg (0.3 mL) IM Q10M PRN lamotrigine (Lamictal) 100 mg PO DAILY loratadine 10 mg PO DAILY 90 days lorazepam 0.5 mg PO BID PRN mesalamine 1,200 mg (3 x 400 mg) PO BID montelukast 10 mg PO DAILY nystatin 5 mL PO DAILY 10 days omeprazole 40 mg PO DAILY pantoprazole 40 mg PO QAM polyethylene glycol 3350 (Miralax) 17 grams PO DAILY 7 days rosuvastatin 40 mg PO DAILY tizanidine 2 mg PO TID PRN 30 days Tobacco use date assessed: 09/02/23 Dental Screening Dental Screen Date: 09/02/23 Did you have a dental visit in the last 12 months?: No Did you have a dental problem in the last 6 months where you did not have access to dental care?: No Was dental information given to patient?: No (no teeth) HPI HPI Comments History of Present Illness Details 53-year-old female today for hospital discharge. She went to the emergency [facility] 08[facility] for abdominal pain workup review labs within normal limits CT scan this show colonic diverticulosis. In the sigmoid colon, there is a focal wall thickening and surrounding inflammatory stranding surrounding a thick walled colonic diverticulum compatible with acute diverticula. No associated abscess or free air. Other incidental findings include mild vascular calcifications in the blood vessels, osteopenia, mildly nodular liver contour, mild hepatosplenomegaly. She was discharged home with Cipro 500 mg by mouth every 12 hours times 10 days and metronidazole 500 mg by mouth 3 times a day for 10 days. However she did not take as directed d/t anxiety about an allergic reaction to these meds. She present to [facility] [place]23 for this reason. Repeat imaging and labs performed. Stable. She was able to take first dose of home meds w/o complication. She was advised to complete course. She has epi pen on hand and can use PRN. Although has never had reaction to these meds in the past. She presents today feeling, without pain and normal bowel movements. Tolerating full liquid bland diet. Admits to feeling anxiety described as shortness of breath after taking AM doses of AB. So she stopped. Has taken a total of 3 doses of AB. Feels taking the AB will make her feel worse and could cause her issues. Be that as it may, she feels good today. Due to f/u with GI October 2023. [facility] Medical History Tubular adenoma Chronic idiopathic constipation Crohn disease Unspecified asthma, uncomplicated Dysuria Surgical History Hx of colonoscopy History of esophagogastroduodenoscopy (EGD) No pertinent past surgical history Family History Father Suicide Mother Hypertension Diabetes Paternal Grandmother Stroke Brother In good health Sister In good health Social History Housing: Other Housing Other:: mobile home Alcohol intake: current Alcohol intake frequency: does not drink Patient Tobacco Use Status: Never used Tobacco e-Cigarette/Vaping Use: Never Used Second Hand Smoke Exposure: Yes service: No Current occupational status: disabled Current occupational exposures/hazards: No Cognitive needs: No Hearing needs: No Vision needs: No Questionnaire Thrive Questionnaire Date Thrive assessed: 09/02/23 I am a: Patient What is your living situation today?: I have a steady place to live Within the past 12 months, did the food you bought not last and you didn't have the money to get more?: Never true Within the past 12 months, did you worry whether your food would run out before you got money to buy more?: Never true Do you have trouble paying for medicines?: No Do you have trouble getting transportation to medical appointments?: No Do you have trouble paying your heating and electricity bill?: No Do you have trouble taking care of your child, family member or friend?: No Do you have trouble with day-to-day activities such as bathing, preparing meals, shopping, managing finances, etc.?: No Are you currently unemployed and looking for a job?: No Are you interested in more education?: No Currently or been in a relationship where the following occur: no concerns reported THRIVE Score: 0 ZENY-7 AMB Questionnaire ZENY-7 Date ZENY - 7 assessed: 08/30/23 Source: Developed by Drs. Bernardino Ahumada, Peri Valencia, Gordy Victoria and colleagues, with an educational hakeem from [employer]. Review of Systems Const All systems reviewed & are unremarkable except as noted in HPI and below Physical exam (Primary Care) BMI result Body Mass Index 37.1 Tobacco/Smoking Status: Tobacco use Status Tobacco use date assessed 07/31/23 08/30/23 13:22 Patient Tobacco Use Status Never used Tobacco 08/30/23 13:22 e-Cigarette/Vaping Use Never Used 08/30/23 13:22 Thrive Assessment: Date of Thrive Assessment Date Thrive assessed 10/17/21 08/30/23 13:22 Currently or been in a relationship where the following occur: no concerns reported Const Other: awake alert nontoxical appearing accompanied by male partner MMM Abd soft,round, obese, nontender, bowel sounds WNL x 4 quads, + hepatomegaly unable to palpate spleen d/t body habitus ecchymosis R arm Assessment and Plan Assessment & Plan (1) Hospital discharge follow-up: Code(s): Z09 - Encounter for follow-up examination after completed treatment for conditions other than malignant neoplasm (2) Diverticulitis: Code(s): K57.92 - Diverticulitis of intestine, part unspecified, without perforation or abscess without bleeding (3) Anxiety: Code(s): F41.9 - Anxiety disorder, unspecified Plan: Patient is anxious and not able to take the antibiotics. Given that the anxiety is such that she can not tolerate taking the medications and that she feels better off of them I have advised her to not take them. There was no need to add these to the allergy list as she is not allergic. She continue to see her provider for management of her anxiety. She was reassured today and education provided. (4) Purpura of skin due to mechanical force: Comment: On bilat arms likely from blood draws and IV fluids at the hospital. Reassured. Code(s): D69.2 - Other nonthrombocytopenic purpura Plan Total time spent caring for the patient today was 60 minutes. This includes time spent before the visit reviewing the chart, time spent during the visit, and time spent after the visit on documentation This note is constructed using voice recognition software. While every effort has been made to ensure accuracy in appliance worker, still errors may have been included Sometimes, these errors may affect the content or meaning of the given sentence . Patient does not appear toxic. She is tolerating p.o. intake. Her vital signs are stable. I have sent a direct message to her nurse practitioner at the GI office giving them a heads up about the diverticulitis course. And also made mention of the mild hepatosplenomegaly and liver contour noted on imaging at [facility]. Defer to GI for further workup as she has been a patient of theirs for some time. Patient Instructions: Stop Cipro and Flagyl Continue diet as tolerated. Avoid any food triggers. Follow up with GI and PCP as scheduled. Coding Level of Care Code Est Pt Level 5 (32413) Diagnoses Hospital discharge follow-up Z09 Diverticulitis K57.92 Anxiety F41.9 Purpura of skin due to mechanical force D69.2
[2023-09-02 12:34] VITALS: BP 110/80; PULSE 81; O2SAT 97; BMI 37.1
== END 2023-09-02 13:07 | disposition home or self-care (01) ==
PROVIDERS: PCP Family Medicine; Visit Provider Nurse Practitioner Family
DX: Z09 Encounter for follow-up examination after completed treatment for conditions other than malignant neoplasm (principal); K57.92 Diverticulitis of intestine, part unspecified, without perforation or abscess without bleeding; F41.9 Anxiety disorder, unspecified; D69.2 Other nonthrombocytopenic purpura
CPT/HCPCS: 99215

== ENCOUNTER 2023-09-09 12:45 | Outpatient (AMB) | payer OTHER, SELFPAY ==
[2023-09-09 12:47] VITALS: BP 135/75; PULSE 95
--- NOTE | 2023-09-09 12:47 | A.OFFVIS_ITS ---
Intake Vital Signs 09/09/23 12:47 Height 5 ft BP 135/75 Blood Pressure Location Lt brachial Position Sitting Pulse 95 Pulse Source Pulse Oximeter Intake Visit Reasons: ED follow up Intake Note: Patient returns to in office visit today in follow up of ED visit. CC:Patient presented to the ER on 08/31/23 with c/o loose stools and left lower abdominal pain for 1 week. Patient was seen at [facility] 1 week prior to presentation to ER for abdominal pain and loose stools. She was diagnosed with diverticulitis and started on Metronidiazole and Ciprofloxicin. Patient reported that she has anxiety surrounding taking antibiotics. So that'swhy she went to the ER be there when she takes them to know if she reacts. Allergies Penicillins [PENICILLINS] Allergy (Severe, Verified 09/09/23 12:55) ANAPHYLAXIS simvastatin Allergy (Mild, Verified 09/09/23 12:55) weird feeling ibuprofen Adverse Reaction (Intermediate, Verified 09/09/23 12:55) stomach upset, irritates Chrohn's HPI ED follow up HPI Details LAST VISIT Constipation Patient can continue taking stool softeners. Patient was also encouraged to start taking MiraLax daily so she can empty her bowels completely. Patient was also encouraged to increase fluid intake and activity to promote better bowel motility. Elevated liver enzymes Patient was encouraged to try to lose weight. Eat food that is low in fat. Increase activity. Will repeat blood work today. GERD (gastroesophageal reflux disease) Patient is having trouble swallowing omeprazole capsules. 40 mg not available in the tablet form. Will change it to pantoprazole 40 mg. Patient will call us in 2 weeks if she will feel like pantoprazole is not working for her. I will see patient in 6 months so we can discuss her going for repeat colonoscopy. Patient is agreeable to this plan and verbalizes understanding of instructions. She was given the opportunity to ask questions and all questions answered. ? Thank you for allowing me to participate in her care Plan Orders Orders Liver Panel Today R10.9 - Unspecified abdominal pain Medications New pantoprazole take one tablet half an hour before breakfast 40 mg PO DAILY 30 tabs 2RF K21.9 - Gastro-esophageal reflux disease without esophagitis Discontinued omeprazole Discontinued Reason: Duplicate 40 mg PO DAILY 3 months 90 caps 1RF R35.0 - Frequency of micturition TODAY'S VISIT: Patient is here today for follow-up after being seen in the ER. Patient was diagnosed with diverticulitis. Patient reports that she had trouble taking antibiotics. Patient states that she had left knee swelling and trouble breathing when she was taking it. Patient states that she started clear liquid diet immediately after she developed lower abdominal pain. Patient states that her pain was in pelvic area, 1st she thought that she had a urinary tract infection, however after having CT done at the hospital she was told that she has diverticulitis. Patient denies any melena, hematochezia,. Patient denies any mucus in her stools. Patient states that she takes Colace and for the most part she is able to go to the bathroom. Patient states that she also drinks more fluids now. Trying to lose weight. Was unable to take Humira for a week or so, due to her symptoms. She continues to take mesalamine. Patient denies any nausea or vomiting. Patient denies any dyspepsia, dysphagia or odynophagia. She is taking omeprazole every morning and her symptoms of acid reflux are suppressed for the most part. Patient is trying to stay away from food that is acidic. Trying to eat healthier. History of non alcoholic fatty liver, liver enzymes have improved. Will send patient for repeat blood work and ultrasound with elastography for staging [facility] Medical History Tubular adenoma Chronic idiopathic constipation Crohn disease Unspecified asthma, uncomplicated Dysuria Surgical History Hx of colonoscopy History of esophagogastroduodenoscopy (EGD) No pertinent past surgical history Family History Father Suicide Mother Hypertension Diabetes Paternal Grandmother Stroke Brother In good health Sister In good health Social History Housing: Other Housing Other:: mobile home Alcohol intake: current Alcohol intake frequency: does not drink Patient Tobacco Use Status: Never used Tobacco e-Cigarette/Vaping Use: Never Used Second Hand Smoke Exposure: Yes service: No Current occupational status: disabled Current occupational exposures/hazards: No Cognitive needs: No Hearing needs: No Vision needs: No Review of Systems Const Denies weight gain and Denies weight loss ENT Reports no additional complaints, Denies dysphagia and Denies odynophagia Card Reports no additional complaints Resp Reports no additional complaints GI Denies abdominal pain, Denies belching, Denies melena, Reports bloating, Denies change in bowel habits, Reports constipation (Occasional), Denies dysphagia, Denies excessive flatus, Denies dyspepsia, Denies heartburn, Denies diarrhea, Denies loose stools, Denies nausea, Denies odynophagia and Denies vomiting Reports no additional complaints Musc Reports no additional complaints Neuro Reports no additional complaints Psych Reports no additional complaints Endo Reports no additional complaints Physical Exam Vital Signs: Last Vital Signs Pulse 95 09/09/23 12:47 BP 135/75 09/09/23 12:47 Const General: healthy appearing, no acute distress and well developed Nutritional Appearance: obese Orientation/consciousness: patient oriented x3 Resp Effort & Inspection: normal respiratory effort, able to speak in complete sentences, no tracheal deviation and symmetric chest movement Auscultation: clear to auscultation bilaterally Cardio Rate: regular rate GI Inspection: Yes normal to inspection, No distended and Yes obesity Palpation (GI): Soft to palpation, not firm, nontender and No hepatosplenomegaly present Auscultation: normal bowel sounds General: Yes no CVA tenderness Back/Spine/Pelvis Back: no CVA tenderness Skin General skin exam: elasticity normal, turgor normal and dry skin Neuro General: patient oriented x3 Psych Appearance: grossly normal Mental Status: mental status grossly normal Assessment & Plan Assessment & Plan (1) Abdominal pain: Code(s): R10.9 - Unspecified abdominal pain Qualifiers: Abdominal location: lower abdomen, unspecified Qualified Code(s): R10.30 - Lower abdominal pain, unspecified (2) Chronic idiopathic constipation: Code(s): K59.04 - Chronic idiopathic constipation (3) Crohn disease: Code(s): K50.90 - Crohn's disease, unspecified, without complications Qualifiers: Digestive disease complication type: without complication Gastrointestinal tract location: large intestine Qualified Code(s): K50.10 - Crohn's disease of large intestine without complications (4) History of diverticulitis: Code(s): Z87.19 - Personal history of other diseases of the digestive system (5) Diverticulosis: Code(s): K57.90 - Diverticulosis of intestine, part unspecified, without perforation or abscess without bleeding Plan Patient was encouraged to take to Colace every evening to help her empty her bowels better. High-fiber diet discussed with patient. History of diverticulitis in the past. Patient denies any abdominal pain or discomfort. Reports that she is moving her bowels well now. Patient has a history of increased echogenicity of the liver, will repeat blood work again. Patient had improvement in liver enzymes few weeks ago. Will rule out Fabrice's, autoimmune disorder,. Will check fecal calprotectin to make sure that patient is in remission recently stopped Humira. Patient is still taking mesalamine. Patient thought that this would interact with the antibiotics. Patient can restart taking it. Will send patient for limited ultrasound of the liver with elastography as well as liver fibrosis panel. Periodic screening for liver CA with alpha fetoprotein. In 2020 all the levels were normal. I will see patient in 2 months. We will send her for colonoscopy. Patient is agreeable to plan of care and verbalizes understanding of instructions. She was given the opportunity to ask questions and all questions answered. Thank you for allowing me to participate in her care Orders: Orders Alpha Fetoprotein Today R79.89 - Other specified abnormal findings of blood chemistry Prothrombin Time INR Today R74.8 - Abnormal levels of other serum enzymes C Reactive Protein Today K58.9 - Irritable bowel syndrome without diarrhea Calprotectin, Fecal Today R15.9 - Full incontinence of feces Smooth Muscle Antibody Today R79.89 - Other specified abnormal findings of blood chemistry Ferritin Today R74.8 - Abnormal levels of other serum enzymes Vitamin D 25-OH (D2 and D3) Today E55.9 - Vitamin D deficiency, unspecified Mitochondrial Antibody Today R79.89 - Other specified abnormal findings of blood chemistry Liver Fibrosis Pnl Today R74.8 - Abnormal levels of other serum enzymes Vitamin B12 and Folate Today R19.7 - Diarrhea, unspecified US abdomen santos w elastography Today R74.01 - Elevation of levels of liver transaminase levels Medications: Discontinued pantoprazole Discontinued Reason: Doctor's Order 40 mg PO QAM 30 tabs 2RF K21.9 - Gastro-esophageal reflux disease without esophagitis Coding Level of Care Code Est Pt Level 4 (43761) Diagnoses Lower abdominal pain R10.30 Abdominal location: lower abdomen, unspecified Chronic idiopathic constipation K59.04 Crohn's disease of large intestine without complication K50.10 Digestive disease complication type: without complication Gastrointestinal tract location: large intestine History of diverticulitis Z87.19 Diverticulosis K57.90 Time Spent (min) 35 Comment 20 minutes spent with patient and additional 15 minutes spent reviewing her records
== END 2023-09-09 13:19 | disposition home or self-care (01) ==
PROVIDERS: PCP Family Medicine; Visit Provider Nurse Practitioner Family
DX: R10.30 Lower abdominal pain, unspecified (principal); K59.04 Chronic idiopathic constipation; K50.10 Crohn's disease of large intestine without complications; Z87.19 Personal history of other diseases of the digestive system; K57.90 Diverticulosis of intestine, part unspecified, without perforation or abscess without bleeding
CPT/HCPCS: 99214

== ENCOUNTER 2023-09-09 12:45 | Outpatient (REF) | payer OTHER, SELFPAY ==
[2023-09-09 13:54] LABS: Prothrombin Time 12.2 SEC (11.1-13.3)
[2023-09-09 14:39] LABS: C Reactive Protein < 0.10 mg/dL (< or = 0.50)
[2023-09-09 14:56] LABS: Ferritin 59 ng/mL (10-250)
[2023-09-09 15:08] LABS: Folate 11.5 ng/mL (> or = 4.0); Vitamin B12 1345 pg/mL (200-900)
[2023-09-10 13:54] LABS: Alpha Fetoprotein 2.6 ng/mL
[2023-09-13 13:18] LABS: Smooth Muscle Antibody <20 U (<20)
[2023-09-13 13:59] LABS: Vitamin D 25-OH, D2 <4 ng/mL; Vitamin D 25-OH, D3 32 ng/mL; Vitamin D 25-OH, Total 32 ng/mL (30-100)
[2023-09-13 14:53] LABS: FIB-ALT 21 U/L (6-29); FIB-Alpha-2-Macroglobulin 177 mg/dL (106-279); FIB-Apolipoprotein A1 160 mg/dL (101-198); FIB-GGT 26 U/L (3-70); FIB-Haptoglobin 133 mg/dL (43-212); FIB-Total Bilirubin 0.5 mg/dL (0.2-1.2); Liver Fibrosis Score 0.13; Liver Fibrosis Stage F0; Nec Inflam Act Grade A0; Nec Inflam Act Score 0.07
[2023-09-13 15:34] LABS: Mitochondrial Antibodies NEGATIVE (NEGATIVE)
== END 2023-09-09 12:46 | disposition home or self-care (01) ==
LOC: HO.LAB 12:45
PROVIDERS: PCP Family Medicine; Visit Provider Nurse Practitioner Family
DX: K50.10 Crohn's disease of large intestine without complications (principal); R74.8 Abnormal levels of other serum enzymes; E55.9 Vitamin D deficiency, unspecified; R79.89 Other specified abnormal findings of blood chemistry; K21.9 Gastro-esophageal reflux disease without esophagitis; R10.30 Lower abdominal pain, unspecified; K59.04 Chronic idiopathic constipation; R15.9 Full incontinence of feces; R74.01 Elevation of levels of liver transaminase levels; K57.90 Diverticulosis of intestine, part unspecified, without perforation or abscess without bleeding; Z87.19 Personal history of other diseases of the digestive system
CPT/HCPCS: 36415; 81596; 82105; 82306; 82607; 82728; 82746; 85610; 86015; 86140; 86381; 99212

== ENCOUNTER 2023-09-11 11:26 | Outpatient (REF) | payer OTHER, SELFPAY ==
[2023-09-15 17:53] LABS: Calprotectin, Fecal 304 mcg/g
== END 2023-09-11 11:27 | disposition home or self-care (01) ==
LOC: HO.LNP 11:26
PROVIDERS: Visit Provider Nurse Practitioner Family
DX: R15.9 Full incontinence of feces (principal)
CPT/HCPCS: 83993

== ENCOUNTER 2023-09-24 10:26 | Outpatient (AMB) | payer OTHER, SELFPAY ==
--- NOTE | 2023-09-24 11:00 | A.OFFPC_ITS ---
Vital Signs 09/24/23 11:01 Height 5 ft Weight 192 lb 6 oz BMI 37.6 BP 123/77 Blood Pressure Location Lt brachial Position Sitting Pulse 69 Pulse Source Pulse Oximeter Pulse Oximetry (%) 96 Oxygen Delivery Method Room Air Intake Visit Reasons: Extended?exam?with?f/u?labs?and?health?maintenance Intake Note: Patient is here for her physical today. She is concerned of left knee popping, and a cyst in her neck she wants rechecked. Allergies Penicillins [PENICILLINS] Allergy (Severe, Verified 09/24/23 11:06) ANAPHYLAXIS simvastatin Allergy (Mild, Verified 09/24/23 11:06) weird feeling ibuprofen Adverse Reaction (Intermediate, Verified 09/24/23 11:06) stomach upset, irritates Chrohn's Tobacco use date assessed: 09/24/23 Dental Screening Dental Screen Date: 09/24/23 Did you have a dental visit in the last 12 months?: No Did you have a dental problem in the last 6 months where you did not have access to dental care?: No Was dental information given to patient?: Patient has dentist HPI Extended?exam?with?f/u?labs?and?health?maintenance HPI Details 53 y/o female presents for an extended e xam with f/u labs and health maintenance. No recent CPE-labs to review. [facility] Medical History Tubular adenoma Chronic idiopathic constipation Crohn disease Unspecified asthma, uncomplicated Dysuria Surgical History Hx of colonoscopy History of esophagogastroduodenoscopy (EGD) No pertinent past surgical history Family History Father Suicide Mother Hypertension Diabetes Paternal Grandmother Stroke Brother In good health Sister In good health Social History Housing: Other Housing Other:: mobile home Alcohol intake: current Alcohol intake frequency: does not drink Patient Tobacco Use Status: Never used Tobacco e-Cigarette/Vaping Use: Never Used Second Hand Smoke Exposure: Yes service: No Current occupational status: disabled Current occupational exposures/hazards: No Cognitive needs: No Hearing needs: No Vision needs: No Questionnaire Thrive Questionnaire Date Thrive assessed: 09/02/23 ZENY-7 AMB Questionnaire ZENY-7 Date ZENY - 7 assessed: 08/30/23 Source: Developed by Drs. Bernardino Ahumada, Peri Valencia, Gordy Victoria and colleagues, with an educational hakeem from [employer]. Physical exam (Primary Care) Vital Signs: Last Vital Signs Pulse 69 09/24/23 11:01 BP 123/77 09/24/23 11:01 Pulse Ox 96 09/24/23 11:01 Oxygen Delivery Method Room Air 09/24/23 11:01 BMI result Body Mass Index 37.6 Tobacco/Smoking Status: Tobacco use Status Tobacco use date assessed 09/24/23 09/24/23 11:08 Patient Tobacco Use Status Never used Tobacco 09/24/23 11:05 e-Cigarette/Vaping Use Never Used 09/24/23 11:05 Thrive Assessment: Date of Thrive Assessment Date Thrive assessed 09/02/23 09/24/23 11:05 Assessment and Plan Assessment & Plan (1) Abdominal pain: Code(s): R10.9 - Unspecified abdominal pain Plan: No?acute?distress?today Continue?good?hydration Try?soluble?fiber History?of?Crohn?and?diverticulosis Follow-up?with?GI (2) Coronary atherosclerosis: Code(s): I25.10 - Atherosclerotic heart disease of [place]iat[place] coronary artery without angina pectoris Plan: Currently?on?rosuvastatin?and?LDL?cholesterol?87.??Goal?is?less?than?70 Recheck?lipids?prior?to?next?visit?and?if?still?above?70?will?try?Zetia?as?well (3) Localized swelling, mass or lump of neck: Code(s): R22.1 - Localized swelling, mass and lump, neck Plan: Check?ultrasound (4) Left knee pain: Code(s): M25.562 - Pain in left knee Plan: Check?x-ray (5) Screening for cervical cancer: Code(s): Z12.4 - Encounter for screening for malignant neoplasm of cervix Plan: Follow-up?with?your?marketing communications manager (6) Screening for colon cancer: Code(s): Z12.11 - Encounter for screening for malignant neoplasm of colon Plan: Followed?by?Gastroenterology (7) Breast cancer screening by mammogram: Code(s): Z12.31 - Encounter for screening mammogram for malignant neoplasm of breast Plan: Mammogram?is?up-to-date Continue?annual?screening (8) Screening for osteoporosis: Code(s): Z13.820 - Encounter for screening for osteoporosis Plan: Postmenopausal Check?bone?density?test (9) Post-menopausal: Code(s): Z78.0 - Asymptomatic menopausal state Plan: As?above,?check?bone?density?test (10) Adult general medical exam: Code(s): Z00.00 - Encounter for general adult medical examination without abnormal findings Plan: 53-year-old?female?presents?for?an?extended?exam Orders: Orders XR knee LT 3V Today M25.562 - Pain in left knee Comprehensive Randall. Panel Fast Today I25.10 - Atherosclerotic heart disease of [place]aviat[place] coronary artery without angina pectoris, Z00.00 - Encounter for general adult medical examination without abnormal findings US soft tiss head and/or neck Today R22.1 - Localized swelling, mass and lump, neck Lipid Panel Today I25.10 - Atherosclerotic heart disease of [place]iat[place] coronary artery without angina pectoris, Z00.00 - Encounter for general adult medical examination without abnormal findings XR DEXA axial skeleton Today M81.0 - Age-related osteoporosis without current pathological fracture, Z78.0 - Asymptomatic menopausal state Coding Level of Care Code Est Pt Level 4 (18178) Diagnoses Abdominal pain R10.9 Coronary atherosclerosis I25.10 Localized swelling, mass or lump of neck R22.1 Left knee pain M25.562 Screening for cervical cancer Z12.4 Screening for colon cancer Z12.11 Breast cancer screening by mammogram Z12.31 Screening for osteoporosis Z13.820 Post-menopausal Z78.0 Adult general medical exam Z00.00
[2023-09-24 11:01] VITALS: BP 123/77; PULSE 69; O2SAT 96; BMI 37.6
== END 2023-09-24 12:25 | disposition home or self-care (01) ==
PROVIDERS: PCP Family Medicine; Visit Provider Family Medicine
DX: R10.9 Unspecified abdominal pain (principal); I25.10 Atherosclerotic heart disease of native coronary artery without angina pectoris; R22.1 Localized swelling, mass and lump, neck; M25.562 Pain in left knee; Z12.4 Encounter for screening for malignant neoplasm of cervix; Z12.11 Encounter for screening for malignant neoplasm of colon; Z12.31 Encounter for screening mammogram for malignant neoplasm of breast; Z13.820 Encounter for screening for osteoporosis; Z78.0 Asymptomatic menopausal state; Z00.00 Encounter for general adult medical examination without abnormal findings
CPT/HCPCS: 99214

== ENCOUNTER 2023-10-02 09:17 | Outpatient (REF) | payer OTHER, SELFPAY ==
--- NOTE | ~2023-10-02 | MM_ITS ---
EXAMINATION: BONE DENSITOMETRY CLINICAL INDICATION: Age-related osteoporosis without current pathological fracture. COMPARISON: This is the patient's baseline examination. TECHNIQUE: Using a Reveal DXA System (software version: 13.1) manufactured by [employer], dual-energy x-ray absorptiometry was performed of the lumbar spine and left hip. The images are of good technical quality. Summary results are attached. FINDINGS: LEFT FEMUR, NECK: BMD 0.696 g/cm2, Z-score -2.0, T-score -2.5, osteoporosis. LEFT FEMUR, TOTAL: BMD 0.775 g/cm2, Z-score -1.8, T-score -1.8, osteopenia. AP SPINE L2-L4 (L3) (excluding L1 and L3): The data of L1-L4 has been changed to exclude the L1 and L3 vertebral bodies, because degenerative sclerosis at this level may cause overestimation of lumbar spine density. BMD 1.063 g/cm2, Z-score -1.2, T-score -1.1, osteopenia. IDENTIFIED RISK FACTORS: Early menopause, secondary osteoporosis, history of fracture (adult). HISTORY OF FRACTURE: Spine, wrist. Other. MEDICATIONS: Vitamin D. MM/XR DEXA axial skeleton IMPRESSION: 1. DIAGNOSIS: Severe osteoporosis based on the lowest T-score value of -2.5 in the femoral neck and history of fractures applying World Health Organization criteria. 2. 10-YEAR FRACTURE RISK PREDICTION, FRAX: According to the guidelines, FRAX calculation should only be performed on patients in the osteopenia bone density category. Therefore, FRAX was not performed on this patient. 3. Treatment Recommendations: NOF guidelines recommend consideration for treatment in postmenopausal women and men age 50 and older presenting with the following: -A hip or vertebral (clinical or morphometric) fracture. -T-score less than or equal to -2.5 at the femoral neck or spine after appropriate evaluation to exclude secondary causes. -Low bone mass at the hip or spine and a 10-year fracture probability by FRAX of greater than or equal to 3% for hip fracture or greater than or equal to 20% for major osteoporotic fracture based on the [place] adapted WHO algorithm. 4. Other Recommendations: All treatment decisions require clinical judgment and consideration of individual patient factors, including patient preferences, comorbidities, previous drug use, risk factors not captured in the FRAX model (e.g. frailty, falls, vitamin D deficiency, increased bone turnover, interval significant decline in bone density) and possible under or overestimation of fracture risk by FRAX. Additional medical evaluation for secondary cause of low bone mineral density may be appropriate. FUTURE SCAN RECOMMENDATION: People with diagnosed cases of osteoporosis or at high risk for fracture should have regular bone mineral density tests. For patients eligible for Medicare, routine testing is allowed once every 2 years. The testing frequency can be increased to one year for patients who have rapidly progressing disease, those who are receiving or discontinuing medical therapy to restore bone mass, or have additional risk factors.
== END 2023-10-02 09:18 | disposition home or self-care (01) ==
LOC: HO.MAMMO 09:17
PROVIDERS: PCP Family Medicine; Visit Provider Family Medicine
DX: Z13.820 Encounter for screening for osteoporosis (principal); Z78.0 Asymptomatic menopausal state; M81.0 Age-related osteoporosis without current pathological fracture
CPT/HCPCS: 77080

== ENCOUNTER 2023-10-08 08:20 | Outpatient (REF) | payer OTHER, SELFPAY ==
--- NOTE | ~2023-10-08 | US_ITS ---
EXAMINATION: US ABDOMEN LIMITED WITH LIVER ELASTOGRAPHY CLINICAL INFORMATION: Elevated liver transaminase levels. COMPARISON: Abdominal ultrasound with elastography dated 04/18/2021. TECHNIQUE: Real-time imaging of the abdominal viscera. Noninvasive ultrasound liver fibrosis assessment is performed using [employer] ElastPQ point quantification shear wave elastography (2D-SWE) with a C5-2 MHz transducer. Multiple elastography samples are obtained. FINDINGS: PANCREAS: Limited. The visualized pancreatic head and body are normal in appearance. The remainder of the pancreas is obscured from visualization by the overlying bowel gas. LIVER: The liver demonstrates normal contour and increased echogenicity. No focal lesion or intrahepatic biliary duct dilatation. The right lobe measures 19.6 cm in length. The left lobe measures 7.6 cm in length. Portal flow is towards the liver (hepatopetal). Shear wave liver elastography median stiffness is 1.50 m/s (reference: normal median stiffness is 1.3 m/s or less). IQR/median stiffness to assess sampling precision is 0.23 (reference: good quality data set is IQR/median stiffness of 0.15 or less). GALLBLADDER: Normal. The gallbladder is physiologically distended without evidence of stones, sludge, polyps, wall thickening or pericholecystic fluid. COMMON BILE DUCT: Normal in caliber measuring 0.4 cm in diameter. RIGHT KIDNEY: Normal. No hydronephrosis. No renal calculi or focal parenchymal lesions. The kidney measures 11.7 cm in maximum dimension. No cyst is presently noted. FREE FLUID: None. US/US abdomen santos w elastography IMPRESSION: 1. There is hepatomegaly. 2. There is generalized increase in hepatic echotexture, consistent with fatty infiltration or hepatocellular disease. Please correlate clinically. No focal hepatic mass or intrahepatic biliary dilatation is seen. 3. Liver elastography: Although measurements appear to rule out compensated advanced chronic liver disease, there is statistical variability of the sampling which decreases accuracy. When compared with prior examination, there is a statistically significant increase in liver stiffness (increase at least 10%). REFERENCE: Society of Radiologists in Ultrasound Liver Stiffness Thresholds (2019): LIVER STIFFNESS THRESHOLDS: *Liver Stiffness equal or less than 1.3 m/s: High probability of being normal. *Liver Stiffness less than 1.7 m/s: In the absence of other known clinical signs, rules out compensated advanced chronic liver disease. *Liver Stiffness 1.7-2.1 m/s: Suggestive of compensated advanced chronic liver disease but need further test for confirmation. *Liver Stiffness over 2.1 m/s: Rules in compensated advanced chronic liver disease. *Liver Stiffness over 2.4 m/s: Suggestive of clinically significant portal hypertension. QUALITY OF DATA SET: *IQR/Median value equal or less than 0.15 implies a quality data set. *IQR/Median value over 0.15 implies a poor quality data set. SIGNIFICANT CHANGE FROM PRIOR EXAM: Significant change if liver stiffness measurement is 10% or greater from prior exam. OTHER CONSIDERATIONS: The stage of liver fibrosis may be overestimated in the setting of acute hepatitis, liver inflammation, elevated liver function tests, hepatic vascular congestion, obstructive cholestasis, non-fasting state, and infiltrative diseases such as amyloidosis and lymphoma. In some patients with NAFLD, the liver stiffness thresholds for compensated advanced chronic liver disease may be lower. In causes other than viral hepatitis and NAFLD, liver stiffness thresholds are not well established.
== END 2023-10-08 08:21 | disposition home or self-care (01) ==
LOC: HO.US 08:20
PROVIDERS: PCP Family Medicine; Visit Provider Nurse Practitioner Family
DX: R74.01 Elevation of levels of liver transaminase levels (principal)
CPT/HCPCS: 76705; 76981

== ENCOUNTER 2023-10-09 14:23 | Outpatient (AMB) | payer OTHER, SELFPAY ==
[2023-10-09 14:37] VITALS: BP 134/72; PULSE 85; RESP 13; TEMP 36.7; O2SAT 96
--- NOTE | 2023-10-09 14:37 | A.OFFPC_ITS ---
Vital Signs 10/09/23 14:37 Height 5 ft BP 134/72 Blood Pressure Location Lt brachial Position Sitting Respiration 13 Pulse 85 Pulse Source Pulse Oximeter Temp 98.1 F Temp Source Temporal Artery Scan Pulse Oximetry (%) 96 Oxygen Delivery Method Simple Mask Intake Visit Reasons: us results Intake Note: Patient would like to review results with her provider. Director Music Required: No Accompanied by: Friend Allergies Penicillins [PENICILLINS] Allergy (Severe, Verified 10/09/23 14:38) ANAPHYLAXIS simvastatin Allergy (Mild, Verified 10/09/23 14:38) weird feeling ibuprofen Adverse Reaction (Intermediate, Verified 10/09/23 14:38) stomach upset, irritates Chrohn's Tobacco use date assessed: 09/24/23 HPI us results HPI Details Patient?presents?to?follow-up?bone?density?and?vitamin-D?results. She?had?an?ultrasound?ordered?by?Gastroenterology?for?history?of?elevated?liver? enzymes?but?this?has?not?been?read?yet.??She?can?follow- up?with?gastroenterology. Bone?density?test?shows?severe?osteoporosis.??Vitamin- D?level?is?low?and?I?had?already?sent?a?script?for?vitamin?D?which?she?has?begun . [facility] Medical History Tubular adenoma Chronic idiopathic constipation Crohn disease Unspecified asthma, uncomplicated Dysuria Surgical History Hx of colonoscopy History of esophagogastroduodenoscopy (EGD) No pertinent past surgical history Family History Father Suicide Mother Hypertension Diabetes Paternal Grandmother Stroke Brother In good health Sister In good health Social History Housing: Other Housing Other:: mobile home Alcohol intake: current Alcohol intake frequency: does not drink Patient Tobacco Use Status: Never used Tobacco e-Cigarette/Vaping Use: Never Used Second Hand Smoke Exposure: Yes service: No Current occupational status: disabled Current occupational exposures/hazards: No Cognitive needs: No Hearing needs: No Vision needs: No Questionnaire Thrive Questionnaire Date Thrive assessed: 09/02/23 ZENY-7 AMB Questionnaire ZENY-7 Date ZENY - 7 assessed: 08/30/23 Source: Developed by Drs. Bernardino Ahumada, Peri Valencia, Gordy Victoria and colleagues, with an educational hakeem from [employer]. Review of Systems Const Denies chills, Denies fatigue, Denies fever(s), Denies headache(s) and Denies weakness ENT Denies dizziness and Denies headache(s) Card Denies chest pain, Denies lightheadedness, Denies dyspnea and Denies other (Palpitations) Resp Denies cough, Denies dyspnea, Denies wheezing and Denies other ( shortness of breath) Musc Denies numbness and Denies tingling Neuro Denies dizziness, Denies headache(s), Denies numbness, Denies tingling, Denies paresthesias and Denies weakness Psych Denies anxiety and Denies depression Endo Denies fatigue Aller/Immun Denies wheezing Physical exam (Primary Care) Vital Signs: Last Vital Signs Temp 98.1 F 10/09/23 14:37 Pulse 85 10/09/23 14:37 Resp 13 10/09/23 14:37 BP 134/72 10/09/23 14:37 Pulse Ox 96 10/09/23 14:37 Oxygen Delivery Method Simple Mask 10/09/23 14:37 Tobacco/Smoking Status: Tobacco use Status Tobacco use date assessed 09/24/23 10/09/23 14:38 Patient Tobacco Use Status Never used Tobacco 10/09/23 14:38 e-Cigarette/Vaping Use Never Used 10/09/23 14:38 Thrive Assessment: Date of Thrive Assessment Date Thrive assessed 09/02/23 10/09/23 14:38 Const General: no acute distress and well developed Nutritional Appearance: well nourished Orientation/consciousness: patient oriented x3 HENMT Head: Yes normocephalic and Yes atraumatic Eyes General: appearance normal, both eyes and all related structures Pupils: Equal, round and reactive pupils present EOM: EOMs intact bilaterally Resp Effort & Inspection: normal respiratory effort Auscultation: clear to auscultation bilaterally Cardio Rate: regular rate Rhythm: regular rhythm Heart sounds: S1 normal heart sound present, S2 normal heart sound present, no gallops, no murmurs and no rubs Neuro General: patient oriented x3 and gait normal Cranial nerves: Yes Equal, round and reactive pupils present Psych Affect: normal affect Assessment and Plan Assessment & Plan (1) Osteoporosis: Code(s): M81.0 - Age-related osteoporosis without current pathological fracture Plan: Severe?osteoporosis Start?alendronate Continue?vitamin-D (2) Elevated liver enzymes: Code(s): R74.8 - Abnormal levels of other serum enzymes Plan: Most?recent?liver?enzymes?are?within?normal?limits. She?does?have?an?ultrasound?completed?but?has?not?been?read?yet?and?sh e?can?follow-up?on?this?with?Gastroenterology. (3) Low vitamin D level: Code(s): R79.89 - Other specified abnormal findings of blood chemistry Plan: Continue?vitamin-D?and?recheck?levels?with?next?lab?draw. (4) Knee pain: Code(s): M25.569 - Pain in unspecified knee Plan: Ongoing?knee?pain. She?has?an?appointment?to?follow-up?on?this?next?month?and?she?has?not?gotten?he r?x-ray?done?yet. Will?follow-up?after?x-ray?at?her?next?appointment Coding Level of Care Code Est Pt Level 4 (05684) Diagnoses Osteoporosis M81.0 Elevated liver enzymes R74.8 Low vitamin D level R79.89 Knee pain M25.569
== END 2023-10-09 14:46 | disposition home or self-care (01) ==
PROVIDERS: PCP Family Medicine; Visit Provider Family Medicine
DX: M81.0 Age-related osteoporosis without current pathological fracture (principal); R74.8 Abnormal levels of other serum enzymes; R79.89 Other specified abnormal findings of blood chemistry; M25.569 Pain in unspecified knee
CPT/HCPCS: 99214

== ENCOUNTER 2023-10-15 12:41 | Outpatient (REF) | payer OTHER, SELFPAY ==
--- NOTE | ~2023-10-15 | US_ITS ---
EXAMINATION: US SOFT TISSUE HEAD/NECK CLINICAL INFORMATION: Localized swelling, mass and lump, neck. Localized swelling, mass and lump neck at right neck 2 cm above the clavicle as indicated by patient to powered bridge specialist. COMPARISON: None available. TECHNIQUE: Linear transducer hernandez-scale and color Doppler examination of the right neck. FINDINGS: Targeted ultrasound images were obtained by the powered bridge specialist of the area of concern as indicated by the patient in the right neck approximately 2 cm above the clavicle and demonstrated a 1.5 x 0.7 x 0.9 cm lymph node in the right neck at level 2. Multiple additional lymph nodes are seen in the adjacent right neck at levels 2-4, largest at level 2 measures 0.6 x 0.4 x 0.7 cm. Radiologist was not in attendance. Images were later provided for interpretation. US/US soft tiss head and/or neck IMPRESSION: 1. A 1.5 cm lymph node identified in the area of concern indicated by the patient in the right neck at level 2. Multiple additional lymph nodes are seen in the adjacent right neck at levels 2-4, largest at level 2 measures 0.6 x 0.4 x 0.7 cm. 2. Decisions regarding further management should be based on the clinical assessment. Recommend follow-up ultrasound in 3 months.
--- NOTE | ~2023-10-15 | XR_ITS ---
EXAMINATION: XR KNEE, LEFT CLINICAL INFORMATION: Pain in left knee COMPARISON: None available. TECHNIQUE: 3 views of the left knee. FINDINGS: No fracture. Small joint effusion. Mild soft tissue swelling is seen anterior and inferior to the patella. There is mild increased density in Hoffa's fat pad. Alignment is anatomic. There is mild narrowing of the patellofemoral joint compartment. Quadriceps enthesopathy is noted. XR/XR knee LT 3V IMPRESSION: 1. Mild osteoarthritis. 2. Small joint effusion. 3. Mild soft tissue swelling anterior and inferior to the patella.
== END 2023-10-15 12:42 | disposition home or self-care (01) ==
LOC: HO.US 12:41
PROVIDERS: PCP Family Medicine; Visit Provider Family Medicine
DX: R22.1 Localized swelling, mass and lump, neck (principal); M25.562 Pain in left knee
CPT/HCPCS: 73562; 76536

== ENCOUNTER 2023-10-30 10:37 | Outpatient (REF) | payer OTHER, SELFPAY ==
[2023-10-30 14:38] LABS: Appearance Urine Clear; Color Urine Yellow; Glucose Urine UA Negative (Negative); Leukocyte Esterase Urine Trace (Negative); Nitrite Urine Negative (Negative); PH 8.5 (5.0-9.0); Specific Gravity - Urine <= 1.005 (1.005-1.025); UMIC TRIGGER UA YES; Urine Blood Negative (Negative); Urine Ketones Negative (Negative); Urine Protein Negative (Neg-Trace)
[2023-10-30 14:43] LABS: Bacteria Urine None Seen (None Seen); Hyaline Casts Urine 0-2 /LPF (0-2); RBC Urine 0-2 /HPF (0-2); Squamous Epithelial Cell Urine 0-2 /HPF (0-2); WBC Urine 0-5 /HPF (0-5)
== END 2023-10-30 10:38 | disposition home or self-care (01) ==
LOC: HO.WFDLDS 10:37
PROVIDERS: Visit Provider Family Medicine
DX: Z00.00 Encounter for general adult medical examination without abnormal findings (principal)
CPT/HCPCS: 81001

== ENCOUNTER 2023-10-31 07:36 | Outpatient (REF) | payer OTHER, SELFPAY ==
[2023-10-31 12:06] LABS: Alanine Aminotransferase 25 U/L (0-31); Albumin Level 4.1 g/dL (3.5-5.0); Alkaline Phosphatase 76 U/L (39-117); Anion Gap 15 (12-20); Aspartate Amino Transferase 32 U/L (5-31); Bilirubin Total 0.6 mg/dL (0.0-1.0); Blood Urea Nitrogen 7 mg/dL (9-16); Calcium 9.4 mg/dL (8.4-10.2); Carbon Dioxide 29 mmol/L (22-29); Chloride 101 mmol/L (96-108); Cholesterol 163 mg/dL (<200); Estimated Glomerular Filt Rate > 60; Glucose Fasting 121 mg/dL (60-99); HDL Cholesterol 56 mg/dL (>40); LDL Cholesterol Calculated 84 mg/dL (<100); Sodium 141 mmol/L (135-145); Total Protein 7.1 g/dL (6.5-8.0); Triglycerides 117 mg/dL (<150); Vitamin D 25-OH Total 69.8 ng/mL (>30)
== END 2023-10-31 07:37 | disposition home or self-care (01) ==
LOC: HO.WFDLDS 07:36
PROVIDERS: Visit Provider Family Medicine
DX: Z00.00 Encounter for general adult medical examination without abnormal findings (principal); I25.10 Atherosclerotic heart disease of native coronary artery without angina pectoris; E55.9 Vitamin D deficiency, unspecified
CPT/HCPCS: 36415; 80053; 80061; 82306

== ENCOUNTER 2023-11-05 10:23 | Outpatient (AMB) | payer OTHER, SELFPAY ==
--- NOTE | 2023-11-05 10:25 | A.OFFPC_ITS ---
Vital Signs 11/05/23 10:26 Height 5 ft Weight 191 lb BMI 37.3 BP 138/80 Blood Pressure Location Rt brachial Position Sitting Pulse 81 Pulse Source Pulse Oximeter Pulse Oximetry (%) 97 Oxygen Delivery Method Room Air Intake Visit Reasons: f/u knee pain Intake Note: Patient is following up on knee pain today, ultrasound and blood work. She would like to have her glands checked again. She would like a refill of her Rosuvastatin. Accompanied by: health care worker Allergies Penicillins [PENICILLINS] Allergy (Severe, Verified 11/05/23 10:30) ANAPHYLAXIS simvastatin Allergy (Mild, Verified 11/05/23 10:30) weird feeling ibuprofen Adverse Reaction (Intermediate, Verified 11/05/23 10:30) stomach upset, irritates Chrohn's Tobacco use date assessed: 11/05/23 Dental Screening Dental Screen Date: 11/05/23 HPI f/u knee pain HPI Details 53 y/o female presents today to f/u knee pain, ultrasound and bloo dwork. Lump of neck and recent ultrasound showed some reactive lymph nodes. Elevated liver enzymes and ultrasound showed findings consistent of fatty liver disorder. Pt reports she is not tolerating alendronate. [facility] Medical History Tubular adenoma Chronic idiopathic constipation Crohn disease Unspecified asthma, uncomplicated Dysuria Surgical History Hx of colonoscopy History of esophagogastroduodenoscopy (EGD) No pertinent past surgical history Family History Father Suicide Mother Hypertension Diabetes Paternal Grandmother Stroke Brother In good health Sister In good health Social History Housing: Other Housing Other:: mobile home Alcohol intake: current Alcohol intake frequency: does not drink Patient Tobacco Use Status: Never used Tobacco e-Cigarette/Vaping Use: Never Used Second Hand Smoke Exposure: Yes service: No Current occupational status: disabled Current occupational exposures/hazards: No Cognitive needs: No Hearing needs: No Vision needs: No Questionnaire Thrive Questionnaire Date Thrive assessed: 09/02/23 ZENY-7 AMB Questionnaire ZENY-7 Date ZENY - 7 assessed: 08/30/23 Source: Developed by Drs. Bernardino Ahumada, Peri Valencia, Gordy Victoria and colleagues, with an educational hakeem from [employer]. Review of Systems Const Denies chills, Denies fatigue, Denies fever(s), Denies headache(s) and Denies weakness ENT Denies dizziness and Denies headache(s) Card Denies dyspnea Resp Denies cough, Denies dyspnea, Denies wheezing and Denies other (shortness of breath) Musc Denies numbness and Denies tingling Neuro Denies dizziness, Denies headache(s), Denies numbness, Denies tingling and Denies weakness Psych Denies anxiety and Denies depression Endo Denies fatigue Aller/Immun Denies wheezing Physical exam (Primary Care) Vital Signs: Last Vital Signs Pulse 81 11/05/23 10:26 BP 138/80 11/05/23 10:26 Pulse Ox 97 11/05/23 10:26 Oxygen Delivery Method Room Air 11/05/23 10:26 BMI result Body Mass Index 37.3 Tobacco/Smoking Status: Tobacco use Status Tobacco use date assessed 11/05/23 11/05/23 10:35 Patient Tobacco Use Status Never used Tobacco 11/05/23 10:29 e-Cigarette/Vaping Use Never Used 11/05/23 10:29 Thrive Assessment: Date of Thrive Assessment Date Thrive assessed 09/02/23 11/05/23 10:29 Const General: well developed; No acute distress Nutritional Appearance: well nourished Orientation/consciousness: patient oriented x3 HENMT Head: Yes normocephalic and Yes atraumatic Eyes General: appearance normal, both eyes and all related structures Pupils: Equal, round and reactive pupils present EOM: EOMs intact bilaterally Resp Effort & Inspection: normal respiratory effort Neuro General: patient oriented x3 and gait normal Cranial nerves: Yes Equal, round and reactive pupils present Psych Affect: normal affect Assessment and Plan Assessment & Plan (1) Left knee pain: Code(s): M25.562 - Pain in left knee Plan: Osteoarthritis Can?use?a?small?amount?of?Tylenol Will?give?her?diclofenac?gel Avoiding?NSAIDs?due?to?Crohn Ice/heat Referring?to?Rheumatology (2) Lump on neck: Code(s): R22.1 - Localized swelling, mass and lump, neck Plan: Patient?notes?that?lumps?go?up?and?down Not?palpating?lymph?nodes?today. Ultrasound?recommended?follow-up?in?3?months?and?she?has?this?scheduled?in?May Will?follow- up?in?early?January.??Patient?will?let?me?know?if?lymph?nodes?are?enlarging - would?refer?her?to?ENT. (3) Elevated liver enzymes: Code(s): R74.8 - Abnormal levels of other serum enzymes Plan: Appears?to?be?fatty?liver?disorder.??Encouraged?weight?loss (4) Osteoporosis: Code(s): M81.0 - Age-related osteoporosis without current pathological fracture Plan: She?has?not?tolerating?alendronate Referred?to?Rheumatology (5) GERD (gastroesophageal reflux disease): Code(s): K21.9 - Gastro-esophageal reflux disease without esophagitis Plan: Ongoing?GERD?symptoms Continue?omeprazole?and?increase?elevation?of?head?of?bed?with?bed?risers (6) Polyarthralgia: Code(s): M25.50 - Pain in unspecified joint Plan: Can?use?a?small?amount?of?Tylenol,?sparingly Diclofenac?gel Referred?to?Rheumatology (7) Osteoarthritis: Code(s): M19.90 - Unspecified osteoarthritis, unspecified site Plan: As?above Orders: Referrals Rheumatology Referral M19.90 - Unspecified osteoarthritis, unspecified site, M25.50 - Pain in unspecified joint, M81.0 - Age-related osteoporosis without current pathological fracture Medications: New diclofenac sodium 1% (Arthritis Pain (diclofenac)) apply to single knee, ankle, foot; for foot includes sole/toes/top of foot 4 grams topical QID 200 grams 3RF 30 days Refilled rosuvastatin 40 mg PO DAILY 90 tabs 2RF Coding Level of Care Code Est Pt Level 4 (13971) Diagnoses Left knee pain M25.562 Lump on neck R22.1 Elevated liver enzymes R74.8 Osteoporosis M81.0 GERD (gastroesophageal reflux disease) K21.9 Polyarthralgia M25.50 Osteoarthritis M19.90
[2023-11-05 10:26] VITALS: BP 138/80; PULSE 81; O2SAT 97; BMI 37.3
== END 2023-11-05 11:09 | disposition home or self-care (01) ==
PROVIDERS: PCP Family Medicine; Visit Provider Family Medicine
DX: M25.562 Pain in left knee (principal); R22.1 Localized swelling, mass and lump, neck; R74.8 Abnormal levels of other serum enzymes; M81.0 Age-related osteoporosis without current pathological fracture; K21.9 Gastro-esophageal reflux disease without esophagitis; M25.50 Pain in unspecified joint; M19.90 Unspecified osteoarthritis, unspecified site
CPT/HCPCS: 99214

== ENCOUNTER 2023-11-12 13:51 | Outpatient (AMB) | payer OTHER, SELFPAY ==
--- NOTE | 2023-11-12 13:52 | MHC.OFFVIS ---
Vital Signs 11/12/23 13:54 Height 5 ft Weight 194 lb 0.108 oz BMI 37.9 BP 127/84 Blood Pressure Location Lt brachial Position Sitting Pulse 89 Intake Visit Reasons: 2 month follow up [place], CIC, diverticulosis Intake Note: Josselin presents in the office as a 2 month follow up for [place], CIC, Diverticulosis. CC: No concerns at this time. 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 High-fiber diet discussed with patient. History of diverticulitis in the past. Patient denies any abdominal pain or discomfort. Reports that she is moving her bowels well now. Patient has a history of increased echogenicity of the liver, will repeat blood work again. Patient had improvement in liver enzymes few weeks ago. Will rule out Fabrice's, autoimmune disorder,. Will check fecal calprotectin to make sure that patient is in remission recently stopped Humira. Patient is still taking mesalamine. Patient thought that this would interact with the antibiotics. Patient can restart taking it. Will send patient for limited ultrasound of the liver with elastography as well as liver fibrosis panel. Periodic screening for liver CA with alpha fetoprotein. In 2020 all the levels were normal. I will see patient in 2 months. We will send her for colonoscopy. Patient is agreeable to plan of care and verbalizes understanding of instructions. She was given the opportunity to ask questions and all questions answered. ? Thank you for allowing me to participate in her care Orders Orders Alpha Fetoprotein Today R79.89 Prothrombin Time INR Today R74.8 C Reactive Protein Today K58.9 Calprotectin, Fecal Today R15.9 Smooth Muscle Antibody Today R79.89 Ferritin Today R74.8 Vitamin D 25-OH (D2 and D3) Today E55.9 Mitochondrial Antibody Today R79.89 Liver Fibrosis Pnl Today R74.8 Vitamin B12 and Folate Today R19.7 US abdomen santos w elastography Today R74.01 Medications Discontinued pantoprazole Discontinued Reason: Doctor's Order 40 mg PO QAM 30 tabs 2RF K21.9 TODAY'S VISIT: Patient is here today for follow-up and to discuss lab and ultrasound results. Patient reports that she is doing better now. Tries to eat healthier. She is moving her bowels better. Occasionally will take stool softeners. Patient reports that she has been drinking plenty fluids. [facility] Medical History Tubular adenoma Chronic idiopathic constipation Crohn disease Unspecified asthma, uncomplicated Dysuria Surgical History Hx of colonoscopy History of esophagogastroduodenoscopy (EGD) No pertinent past surgical history Family History Father Suicide Mother Hypertension Diabetes Paternal Grandmother Stroke Brother In good health Sister In good health Social History Housing: Other Housing Other:: mobile home Alcohol intake: current Alcohol intake frequency: does not drink Patient Tobacco Use Status: Never used Tobacco e-Cigarette/Vaping Use: Never Used Second Hand Smoke Exposure: Yes service: No Current occupational status: disabled Current occupational exposures/hazards: No Cognitive needs: No Hearing needs: No Vision needs: No Review of Systems Const Denies weight gain and Denies weight loss ENT Reports no additional complaints, Denies dysphagia and Denies odynophagia Card Reports no additional complaints Resp Reports no additional complaints GI Denies abdominal pain, Denies belching, Denies melena, Denies bloating, Denies change in bowel habits, Denies dysphagia, Denies excessive flatus, Denies dyspepsia, Denies heartburn, Denies diarrhea, Denies loose stools, Denies nausea, Denies odynophagia and Denies vomiting Musc Reports no additional complaints Neuro Reports no additional complaints Psych Reports no additional complaints Endo Reports no additional complaints Physical Exam Vital Signs: Last Vital Signs Pulse 89 11/12/23 13:54 BP 127/84 11/12/23 13:54 BMI result Body Mass Index 37.9 Const General: healthy appearing, no acute distress and well developed Nutritional Appearance: obese Orientation/consciousness: patient oriented x3 Resp Effort & Inspection: normal respiratory effort, able to speak in complete sentences, no tracheal deviation and symmetric chest movement Auscultation: clear to auscultation bilaterally Cardio Rate: regular rate GI Inspection: Yes normal to inspection, No distended and Yes obesity Palpation (GI): Soft to palpation, not firm, nontender and No hepatosplenomegaly present Auscultation: normal bowel sounds General: Yes no CVA tenderness Back/Spine/Pelvis Back: no CVA tenderness Skin General skin exam: elasticity normal, turgor normal and dry skin Neuro General: patient oriented x3 Psych Appearance: grossly normal Mental Status: mental status grossly normal Results Reviewed Results Reviewed: Laboratory Tests 09/09/23 09/11/23 10/31/23 13:29 01:30 07:38 AST 32 H ALT 25 Alkaline Phosphatase 76 25-OH Vitamin D Total 69.8 Stool Calprotectin 304 H Anti-Mitochondrial Ab NEGATIVE Anti-Smooth Muscle Ab <20 LIVER ULTRASOUND WITH ELASTOGRAPHY FINDINGS: PANCREAS: Limited. The visualized pancreatic head and body are normal in appearance. The remainder of the pancreas is obscured from visualization by the overlying bowel gas. LIVER: The liver demonstrates normal contour and increased echogenicity. No focal lesion or intrahepatic biliary duct dilatation. The right lobe measures 19.6 cm in length. The left lobe measures 7.6 cm in length. Portal flow is towards the liver (hepatopetal). Shear wave liver elastography median stiffness is 1.50 m/s (reference: normal median stiffness is 1.3 m/s or less). IQR/median stiffness to assess sampling precision is 0.23 (reference: good quality data set is IQR/median stiffness of 0.15 or less). GALLBLADDER: Normal. The gallbladder is physiologically distended without evidence of stones, sludge, polyps, wall thickening or pericholecystic fluid. COMMON BILE DUCT: Normal in caliber measuring 0.4 cm in diameter. RIGHT KIDNEY: Normal. No hydronephrosis. No renal calculi or focal parenchymal lesions. The kidney measures 11.7 cm in maximum dimension. No cyst is presently noted. FREE FLUID: None. US/US abdomen santos w elastography IMPRESSION: 1. There is hepatomegaly. 2. There is generalized increase in hepatic echotexture, consistent with fatty infiltration or hepatocellular disease. Please correlate clinically. No focal hepatic mass or intrahepatic biliary dilatation is seen. 3. Liver elastography: Although measurements appear to rule out compensated advanced chronic liver disease, there is statistical variability of the sampling which decreases accuracy. When compared with prior examination, there is a statistically significant increase in liver stiffness (increase at least 10%). Assessment & Plan Assessment & Plan (1) GERD (gastroesophageal reflux disease): Code(s): K21.9 - Gastro-esophageal reflux disease without esophagitis Category: Medical Qualifiers: Esophagitis presence: esophagitis presence not specified Qualified Code(s): K21.9 - Gastro-esophageal reflux disease without esophagitis (2) Abdominal pain: Code(s): R10.9 - Unspecified abdominal pain Category: Medical Qualifiers: Abdominal location: lower abdomen, unspecified Qualified Code(s): R10.30 - Lower abdominal pain, unspecified (3) Chronic idiopathic constipation: Code(s): K59.04 - Chronic idiopathic constipation Category: Medical (4) Crohn disease: Code(s): K50.90 - Crohn's disease, unspecified, without complications Category: Medical Qualifiers: Gastrointestinal tract location: large intestine Digestive disease complication type: without complication Qualified Code(s): K50.10 - Crohn's disease of large intestine without complications (5) History of diverticulitis: Code(s): Z87.19 - Personal history of other diseases of the digestive system (6) Diverticulosis: Code(s): K57.90 - Diverticulosis of intestine, part unspecified, without perforation or abscess without bleeding (7) Transaminitis: Code(s): R74.01 - Elevation of levels of liver transaminase levels Plan Continue mesalamine and Humira. Increase fiber in her diet. Patient was really encouraged about losing weight. Mildly elevated AST, normal ALT. Patient is fluctuating with her weight. Patient was encouraged to try to go for walks to increase mobility. Continue omeprazole. Avoid dietary triggers. Avoid late night snacking. Staying upright for minimum 3 hours after meals discussed with patient. Patient will return in the office in 6 months, sooner on as needed basis. Patient is agreeable to this plan and verbalizes understanding of instructions. She was given the opportunity to ask questions and all questions answered. Thank you for allowing me to participate in her care Medications: Changed From mesalamine 1,200 mg (3 x 400 mg) PO BID 120 ea 3RF To mesalamine 1,200 mg (3 x 400 mg) PO BID 120 ea 3RF
[2023-11-12 13:54] VITALS: BP 127/84; PULSE 89; BMI 37.9
== END 2023-11-12 14:22 | disposition home or self-care (01) ==
PROVIDERS: PCP Family Medicine; Visit Provider Nurse Practitioner Family
DX: K21.9 Gastro-esophageal reflux disease without esophagitis (principal); R10.30 Lower abdominal pain, unspecified; K59.04 Chronic idiopathic constipation; K50.10 Crohn's disease of large intestine without complications; Z87.19 Personal history of other diseases of the digestive system; K57.90 Diverticulosis of intestine, part unspecified, without perforation or abscess without bleeding; R74.01 Elevation of levels of liver transaminase levels
CPT/HCPCS: 99214

== ENCOUNTER → 2023-11-12 13:51 | Outpatient (BNVA) | payer OTHER, SELFPAY | PROVIDERS: PCP Family Medicine; Visit Provider Nurse Practitioner Family | DX: K21.9 Gastro-esophageal reflux disease without esophagitis (principal); K59.04 Chronic idiopathic constipation; K50.90 Crohn's disease, unspecified, without complications; R10.30 Lower abdominal pain, unspecified; K57.90 Diverticulosis of intestine, part unspecified, without perforation or abscess without bleeding; R74.01 Elevation of levels of liver transaminase levels; Z87.19 Personal history of other diseases of the digestive system | CPT/HCPCS: 99212 ==

== ENCOUNTER → 2023-12-18 14:24 | Outpatient (BNVA) | payer OTHER, SELFPAY | PROVIDERS: PCP Family Medicine; Visit Provider Student in an Organized Health Care Education/Training Program ==

== ENCOUNTER 2023-12-31 13:15 | Outpatient (REF) | payer OTHER, SELFPAY ==
--- NOTE | ~2023-12-31 | US_ITS ---
EXAMINATION: US SOFT TISSUE NECK CLINICAL INFORMATION: Localized swelling, mass and lump. COMPARISON: 10/15/2023. TECHNIQUE: Ultrasound of the neck soft tissues is performed with high- frequency hernandez-scale imaging and color Doppler. FINDINGS: Targeted ultrasound images were obtained by the equity research associate of the area of concern as indicated by the patient in the right neck at level 2. There is a 1.2 x 0.9 x 0.9 cm right level 2 lymph node previously measured 1.5 x 0.7 x 0.9 cm. A 1.7 x 0.7 x 1.2 cm right level 2 lymph node was not previously imaged. The previously identified 0.6 x 0.4 x 0.7 cm lymph node is not visualized today. Both visualized lymph nodes demonstrate echogenic chaitanya and plump cortices. Radiologist was not in attendance. Images were later provided for interpretation. US/US soft tiss head and/or neck IMPRESSION: 1. A 1.2 x 0.9 x 0.9 cm right level 2 lymph node previously measured 1.5 x 0.7 x 0.9 cm. 2. A 1.7 x 0.7 x 1.2 cm right level 2 lymph node was not previously imaged. 3. The previously identified 0.6 x 0.4 x 0.7 cm lymph node is not visualized today. 4. Both visualized lymph nodes demonstrate echogenic chaitanya and plump cortices. Decisions regarding further management should be based on the clinical assessment. Follow-up ultrasound could be obtained in 3 months.
== END 2023-12-31 13:16 | disposition home or self-care (01) ==
LOC: HO.US 13:15
PROVIDERS: PCP Family Medicine; Visit Provider Family Medicine
DX: R22.1 Localized swelling, mass and lump, neck (principal)
CPT/HCPCS: 76536

== ENCOUNTER 2024-01-08 10:37 | Outpatient (AMB) | payer OTHER, SELFPAY ==
--- NOTE | 2024-01-08 10:56 | A.OFFPC_ITS ---
Vital Signs 01/08/24 11:07 Height 5 ft Weight 191 lb 4 oz BMI 37.3 BP 130/82 Blood Pressure Location Rt brachial Position Sitting Pulse 74 Pulse Source Pulse Oximeter Pulse Oximetry (%) 98 Oxygen Delivery Method Room Air Intake Visit Reasons: f/u ultrasound Intake Note: Patient is here to go over blood work results, and her allergies are bothering her. Allergies Penicillins [PENICILLINS] Allergy (Severe, Verified 01/08/24 11:08) ANAPHYLAXIS simvastatin Allergy (Mild, Verified 01/08/24 11:08) weird feeling ibuprofen Adverse Reaction (Intermediate, Verified 01/08/24 11:08) stomach upset, irritates Chrohn's Tobacco use date assessed: 11/05/23 Dental Screening Dental Screen Date: 11/05/23 HPI f/u ultrasound HPI Details 53 y/o female presents to f/u head/neck ultrasound. Head/neck ultrasound has not been read yet. Pt reports allergies. She reports throat is irritated and eyes are red. PFS Medical History Tubular adenoma Chronic idiopathic constipation Crohn disease Unspecified asthma, uncomplicated Dysuria Surgical History Hx of colonoscopy History of esophagogastroduodenoscopy (EGD) No pertinent past surgical history Family History Father Suicide Mother Hypertension Diabetes Paternal Grandmother Stroke Brother In good health Sister In good health Social History Housing: Other Housing Other:: mobile home Alcohol intake: current Alcohol intake frequency: does not drink Patient Tobacco Use Status: Never used Tobacco e-Cigarette/Vaping Use: Never Used Second Hand Smoke Exposure: Yes service: No Current occupational status: disabled Current occupational exposures/hazards: No Cognitive needs: No Hearing needs: No Vision needs: No Questionnaire Thrive Questionnaire Date Thrive assessed: 09/02/23 ZENY-7 AMB Questionnaire ZENY-7 Date ZENY - 7 assessed: 08/30/23 Source: Developed by Drs. Bernardino Ahumada, Peri Valencia, Gordy Victoria and colleagues, with an educational hakeem from [employer]. Review of Systems Const Denies chills, Denies fatigue, Denies fever(s), Denies headache(s) and Denies weakness Eyes Reports irritation ENT Denies dizziness and Denies headache(s) Card Denies chest pain, Denies lightheadedness, Denies dyspnea and Denies other (Palpitations) Resp Denies cough, Denies dyspnea, Denies wheezing and Denies other ( shortness of breath) Musc Denies numbness and Denies tingling Neuro Denies dizziness, Denies headache(s), Denies numbness, Denies tingling, Denies paresthesias and Denies weakness Psych Denies anxiety and Denies depression Endo Denies fatigue Aller/Immun Denies wheezing Physical exam (Primary Care) Vital Signs: Last Vital Signs Pulse 74 01/08/24 11:07 BP 130/82 01/08/24 11:07 Pulse Ox 98 01/08/24 11:07 Oxygen Delivery Method Room Air 01/08/24 11:07 BMI result Body Mass Index 37.3 Tobacco/Smoking Status: Tobacco use Status Tobacco use date assessed 11/05/23 01/08/24 10:57 Patient Tobacco Use Status Never used Tobacco 01/08/24 10:57 e-Cigarette/Vaping Use Never Used 01/08/24 10:57 Thrive Assessment: Date of Thrive Assessment Date Thrive assessed 09/02/23 01/08/24 10:57 Const General: no acute distress and well developed Nutritional Appearance: well nourished Orientation/consciousness: patient oriented x3 HENMT Head: Yes normocephalic and Yes atraumatic Eyes General: appearance normal, both eyes and all related structures Pupils: Equal, round and reactive pupils present EOM: EOMs intact bilaterally Resp Effort & Inspection: normal respiratory effort Auscultation: clear to auscultation bilaterally Cardio Rate: regular rate Rhythm: regular rhythm Heart sounds: S1 normal heart sound present, S2 normal heart sound present, no gallops, no murmurs and no rubs Neuro General: patient oriented x3 and gait normal Cranial nerves: Yes Equal, round and reactive pupils present Psych Affect: normal affect Assessment and Plan Assessment & Plan (1) Lump on neck: Code(s): R22.1 - Localized swelling, mass and lump, neck Plan: Ultrasound?is?acquired?but?not?read?yet.??We?can?follow-up?on?this?at?next?visit (2) Allergies: Code(s): T78.40XA - Allergy, unspecified, initial encounter Plan: Check?rhinitis?and?allergic?conjunctivitis Continue?oral?antihistamine Continue?nasal?steroid Will?send?script?for?ocular?antihistamine Advised?hypoallergenic?bed?covers, HEPA?filter Follow-up?with?low voltage electrician?as?recommended Orders: Orders Hemoglobin A1c Today R73.01 - Impaired fasting glucose Comprehensive Met. Panel Today R74.8 - Abnormal levels of other serum enzymes Medications: New olopatadine 0.2% 1 drp ophthalmic (eye) DAILY 30 days PRN 2.5 mL 3RF itching Coding Level of Care Code Est Pt Level 3 (75970) Diagnoses Lump on neck R22.1 Allergies T78.40XA
[2024-01-08 11:07] VITALS: BP 130/82; PULSE 74; O2SAT 98; BMI 37.3
== END 2024-01-08 11:39 | disposition home or self-care (01) ==
PROVIDERS: PCP Family Medicine; Visit Provider Family Medicine
DX: R22.1 Localized swelling, mass and lump, neck (principal); T78.40XA Allergy, unspecified, initial encounter
CPT/HCPCS: 99213

== ENCOUNTER 2024-01-21 09:51 | Outpatient (REF) | payer OTHER, SELFPAY ==
[2024-01-21 12:35] LABS: Alanine Aminotransferase 18 U/L (0-31); Albumin Level 4.2 g/dL (3.5-5.0); Alkaline Phosphatase 78 U/L (39-117); Anion Gap 9 (12-20); Aspartate Amino Transferase 32 U/L (5-31); Bilirubin Total 0.6 mg/dL (0.0-1.0); Blood Urea Nitrogen 8 mg/dL (9-16); Calcium 9.8 mg/dL (8.4-10.2); Carbon Dioxide 31 mmol/L (22-29); Chloride 104 mmol/L (96-108); Estimated Glomerular Filt Rate > 60; Glucose Random 118 mg/dL (60-115); Potassium 4.3 mmol/L (3.3-5.1); Sodium 140 mmol/L (135-145); Total Protein 7.3 g/dL (6.5-8.0)
[2024-01-21 12:42] LABS: Estimated Average Glucose 123 mg/dL; Hemoglobin A1c % 5.9 % (<6.0)
== END 2024-01-21 09:52 | disposition home or self-care (01) ==
LOC: HO.WFDLDS 09:51
PROVIDERS: Visit Provider Family Medicine
DX: R74.8 Abnormal levels of other serum enzymes (principal); R73.01 Impaired fasting glucose
CPT/HCPCS: 36415; 80053; 83036

== ENCOUNTER → 2024-01-24 15:50 | Outpatient (AMB) | payer OTHER, SELFPAY ==
--- NOTE | 2024-01-24 15:44 | A.OFFPC_ITS ---
Intake Visit Reasons: f/u ultrasound, labs via telemedicine Intake Note: Patient is calling to follow up on ultrasound of neck and her labs. Allergies Penicillins [PENICILLINS] Allergy (Severe, Verified 01/24/24 15:46) ANAPHYLAXIS simvastatin Allergy (Mild, Verified 01/24/24 15:46) weird feeling ibuprofen Adverse Reaction (Intermediate, Verified 01/24/24 15:46) stomach upset, irritates Chrohn's Tobacco use date assessed: 01/24/24 Dental Screening Dental Screen Date: 11/05/23 HPI f/u ultrasound, labs via telemedicine HPI Details 53 y/o female presents to f/u elevated l iver enzymes, head/neck ultrasound and lab work. Labs were drawn 01/21/24. Reviewed labs with pt. A1c 5.9% - pre-diabetes range. AST mildly elevated at 32 U/L. Head/neck ultrasound 12/31/23 showed: 1. A 1.2 x 0.9 x 0.9 cm right level 2 lymph node previously measured 1.5 x 0.7 x 0.9 cm. 2. A 1.7 x 0.7 x 1.2 cm right level 2 ly mph node was not previously imaged. 3. The previously identified 0.6 x 0.4 x 0.7 cm lymph node is not visualized today. 4. Both visualized lymph nodes demonstra te echogenic chaitanya and plump cortices. [facility] Medical History Tubular adenoma Chronic idiopathic constipation Crohn disease Unspecified asthma, uncomplicated Dysuria Surgical History Hx of colonoscopy History of esophagogastroduodenoscopy (EGD) No pertinent past surgical history Family History Father Suicide Mother Hypertension Diabetes Paternal Grandmother Stroke Brother In good health Sister In good health Social History Housing: Other Housing Other:: mobile home Alcohol intake: current Alcohol intake frequency: does not drink Patient Tobacco Use Status: Never used Tobacco e-Cigarette/Vaping Use: Never Used Second Hand Smoke Exposure: Yes service: No Current occupational status: disabled Current occupational exposures/hazards: No Cognitive needs: No Hearing needs: No Vision needs: No Questionnaire Thrive Questionnaire Date Thrive assessed: 09/02/23 ZENY-7 AMB Questionnaire ZENY-7 Date ZENY - 7 assessed: 08/30/23 Source: Developed by Drs. Bernardino Ahumada, Peri Valencia, Gordy Victoria and colleagues, with an educational hakeem from [employer]. Review of Systems Const Denies chills, Denies fatigue, Denies fever(s), Denies headache(s) and Denies weakness ENT Denies dizziness and Denies headache(s) Card Denies dyspnea Resp Denies cough, Denies dyspnea, Denies wheezing and Denies other (shortness of b reath) Musc Denies numbness and Denies tingling Neuro Denies dizziness, Denies headache(s), Denies numbness, Denies tingling and Denies weakness Psych Denies anxiety and Denies depression Endo Denies fatigue Aller/Immun Denies wheezing Physical exam (Primary Care) Tobacco/Smoking Status: Tobacco use Status Tobacco use date assessed 01/24/24 01/24/24 15:49 Patient Tobacco Use Status Never used Tobacco 01/24/24 15:49 e-Cigarette/Vaping Use Never Used 01/24/24 15:49 Thrive Assessment: Date of Thrive Assessment Date Thrive assessed 09/02/23 01/24/24 15:49 Telehealth Telehealth Telehealth Platform: Telephone Location of provider rendering services: practice address Location of patient: address on file Patient Identification confirmed using: Name, : Yes Telehealth method: voice only Patient verbally consented to treatment: Yes Patient verbally consented to billing insurance company: Yes Patient informed of any privacy concerns related to visit: Yes Minutes spent on Phone/Video with Pt.: 7 Assessment and Plan Assessment & Plan (1) Pre-diabetes: Code(s): R73.03 - Prediabetes Plan: A1c?still?in?pre?diabetes?range Encouraged?diet?low?in?sugars?and?starches (2) Elevated liver enzymes: Code(s): R74.8 - Abnormal levels of other serum enzymes Plan: Mildly?elevated?liver?enzymes Will?continue?to?monitor (3) Abnormal ultrasound of neck: Code(s): R93.89 - Abnormal findings on diagnostic imaging of other specified body st ructures Plan: Three?month?follow-up?ultrasound Lymph?nodes?in neck: ?Largest?lymph?node?has?decreased?in?size.??One?lymph?node?no?longer?seen?an d?new?lymph?nodes?seen. Characteristics?of?lymph?nodes consistent?with?benign?lymph?node?but?recommendation?for?follow-up. Will?follow-up?again?in?6?months. Coding Level of Care Code Tele Est Pt Level 2 (40261) Diagnoses Pre-diabetes R73.03 Elevated liver enzymes R74.8 Abnormal ultrasound of neck R93.89
== END ==
LOC: HO.HMGFM 15:51
PROVIDERS: PCP Family Medicine; Visit Provider Family Medicine
DX: R73.03 Prediabetes (principal); R74.8 Abnormal levels of other serum enzymes; R93.89 Abnormal findings on diagnostic imaging of other specified body structures
CPT/HCPCS: 99441

== ENCOUNTER 2024-04-03 10:15 | Outpatient (AMB) | payer OTHER, SELFPAY ==
--- NOTE | 2024-04-03 10:28 | AM.OFFWIN_ITS ---
Intake Vital Signs 04/03/24 10:33 Height 5 ft Weight 197 lb BMI 38.5 BP 138/76 Blood Pressure Location Lt brachial Position Sitting Respiration 15 Pulse 86 Pulse Source Pulse Oximeter Pulse Oximetry (%) 98 Oxygen Delivery Method Room Air Intake Visit Reasons: rash on chest and neck Intake Note: patient complaining of rash on chest and neck x2 days Patient Tobacco Use Status: Never used Tobacco Allergies Penicillins [PENICILLINS] Allergy (Severe, Verified 04/03/24 10:53) ANAPHYLAXIS simvastatin Allergy (Mild, Verified 04/03/24 10:53) weird feeling ibuprofen Adverse Reaction (Intermediate, Verified 04/03/24 10:53) stomach upset, irritates Chrohn's Medication List - Last Reconciled 04/03/24 by SUKHDEV Cristobal- adalimumab (Humira(CF) Pen) 40 mg subcut Q2W albuterol sulfate 90 mcg/actuation 2 puffs inhalation QID PRN albuterol sulfate 2.5 mg (3 mL) inhalation Q4-6H PRN 30 days alendronate 70 mg PO QWEEK 28 days azelastine intranasal budesonide 32 mcg/actuation 1 spray intranasal DAILY cholecalciferol (vitamin D3) 50 mcg PO DAILY 3 months clotrimazole 1% 1 appful vaginal BEDTIME PRN coenzyme Q10 (Co Q-10) 50 mg PO DAILY cranberry extract 250 mg PO DAILY cyanocobalamin (vitamin B-12) 1,000 mcg PO DAILY 30 days diclofenac sodium 1% (Arthritis Pain (diclofenac)) 4 grams topical QID 30 days docusate sodium 200 mg (2 x 100 mg) PO BID 3 months epinephrine (EpiPen 2-Isma) 0.3 mg (0.3 mL) IM Q10M PRN lamotrigine (Lamictal) 100 mg PO DAILY loratadine 10 mg PO DAILY 90 days lorazepam 0.5 mg PO BID PRN mesalamine 1,200 mg (3 x 400 mg) PO BID montelukast 10 mg PO DAILY nystatin 5 mL PO DAILY 10 days olopatadine 0.2% 1 drp ophthalmic (eye) DAILY PRN 30 days omeprazole 40 mg PO DAILY polyethylene glycol 3350 (Miralax) 17 grams PO DAILY 7 days rosuvastatin 40 mg PO DAILY tizanidine 2 mg PO TID PRN 30 days Do you need a note to return to daycare/school/sports/work: No HPI HPI Comments History of Present Illness Details Here today w/ co rash Reports that the rash started on her left breast a few days ago. The rash is itchy, not painful. She also thinks that perhaps she has some areas on the back of her right shoulder that also started about a few days ago. In addition she has external vaginal itching and irritation this started a few days before the other rash. She does report that she went to the [facility] urgent care yesterday and was told that she had shingles and was given a prescription for v alacyclovir along with a topical cream. She does not like to take big medications and has lots of fears about side effects from medications. Therefore she did not start any of this treatment. She is here today for re- evaluation. She denies any fever, chills, breast pain, drainage. She reports that the rash of the left breast was never blistered. Does report perhaps some bumps when running fingers over it, however you could not see any blisters or the like. Exam: On exam of the left breast she has a scattered macular rash without blisters she has the same rash to her right shoulder blade area. The external vaginal tissue is erythematous, edematous and irritated consistent with a vaginal candidiasis. Plan: The plan at this time we will be to treat her with a topical antifungal and s teroid cream 3 times per day. This cream can be used both of the left breast, right back and the external vaginal tissue. She does make a mention of concern for esophageal thrush given the use of inhaled corticosteroids. However she has lots of fears about lowering her mask given the risk for COVID. I have advised her to return to the office in 1 week to re-evaluate the rash on her left breast, right shoulder blade and vagina. At that time if she still is worried about esophageal yeast, and exam can be performed. Given her anxiety r/t meds and inability to take large pills, advised to hold off on taking valacylovir @ this time. This note is constructed using voice recognition software. While every effort has been made to ensure accuracy in embedded systems software engineer, still errors may have been included Sometimes, these errors may affect the content or meaning of the given sentence . Total time spent caring for the patient today was 30 minutes. This includes time spent before the visit reviewing the chart, time spent during the visit, and time spent after the visit on documentation [facility] Medical History Tubular adenoma Chronic idiopathic constipation Crohn disease Unspecified asthma, uncomplicated Dysuria Surgical History Hx of colonoscopy History of esophagogastroduodenoscopy (EGD) No pertinent past surgical history Family History Father Suicide Mother Hypertension Diabetes Paternal Grandmother Stroke Brother In good health Sister In good health Social History Housing: Other Housing Other:: mobile home Alcohol intake: current Alcohol intake frequency: does not drink Patient Tobacco Use Status: Never used Tobacco e-Cigarette/Vaping Use: Never Used Second Hand Smoke Exposure: Yes service: No Current occupational status: disabled Current occupational exposures/hazards: No Cognitive needs: No Hearing needs: No Vision needs: No Physical Exam Vital Signs: Last Vital Signs Pulse 86 04/03/24 10:33 Resp 15 04/03/24 10:33 BP 138/76 04/03/24 10:33 Pulse Ox 98 04/03/24 10:33 Oxygen Delivery Method Room Air 04/03/24 10:33 BMI result Body Mass Index 38.5 Assessment & Plan Assessment & Plan (1) Fungal rash of torso: Code(s): B36.9 - Superficial mycosis, unspecified Plan: . (2) Candidiasis, vagina: Code(s): B37.31 - Acute candidiasis of vulva and vagina Plan: . Plan . Medications: New nystatin-triamcinolone 100,000-0.1 unit/g-% 1 appl topical TID 30 grams 0RF Coding Level of Care Code Est Pt Level 4 (96010) Diagnoses Fungal rash of torso B36.9 Candidiasis, vagina B37.31
[2024-04-03 10:33] VITALS: BP 138/76; PULSE 86; RESP 15; O2SAT 98; BMI 38.5
== END 2024-04-03 11:08 | disposition home or self-care (01) ==
PROVIDERS: PCP Family Medicine; Visit Provider Nurse Practitioner Family
DX: B36.9 Superficial mycosis, unspecified (principal); B37.31 Acute candidiasis of vulva and vagina
CPT/HCPCS: 99214

== ENCOUNTER 2024-04-10 12:40 | Outpatient (AMB) | payer OTHER, SELFPAY ==
--- NOTE | 2024-04-10 12:55 | MHC.PC.OV ---
Vital Signs 04/10/24 13:01 Height 5 ft Weight 192 lb 2 oz BMI 37.5 BP 128/68 Blood Pressure Location Rt brachial Position Sitting Respiration 18 Pulse 85 Pulse Source Pulse Oximeter Pulse Oximetry (%) 97 Oxygen Delivery Method Room Air Intake Visit Reasons: 1 week fu rash Intake Note: One week follow up. Needs refill on Vitamin d3 and rosuvastatin 40mg. Allergies Penicillins [PENICILLINS] Allergy (Severe, Verified 04/10/24 13:15) ANAPHYLAXIS simvastatin Allergy (Mild, Verified 04/10/24 13:15) weird feeling ibuprofen Adverse Reaction (Intermediate, Verified 04/10/24 13:15) stomach upset, irritates Chrnen's Medication List - Last Reconciled 04/10/24 by USKHDEV Cristobal- adalimumab (Humira(CF) Pen) 40 mg subcut Q2W albuterol sulfate 90 mcg/actuation 2 puffs inhalation QID PRN albuterol sulfate 2.5 mg (3 mL) inhalation Q4-6H PRN 30 days alendronate 70 mg PO QWEEK 28 days azelastine intranasal budesonide 32 mcg/actuation 1 spray intranasal DAILY cholecalciferol (vitamin D3) 50 mcg PO DAILY 3 months clotrimazole 1% 1 appful vaginal BEDTIME PRN coenzyme Q10 (Co Q-10) 50 mg PO DAILY cranberry extract 250 mg PO DAILY cyanocobalamin (vitamin B-12) 1,000 mcg PO DAILY 30 days diclofenac sodium 1% (Arthritis Pain (diclofenac)) 4 grams topical QID 30 days docusate sodium 200 mg (2 x 100 mg) PO BID 3 months epinephrine (EpiPen 2-Isma) 0.3 mg (0.3 mL) IM Q10M PRN lamotrigine (Lamictal) 100 mg PO DAILY loratadine 10 mg PO DAILY 90 days lorazepam 0.5 mg PO BID PRN mesalamine 1,200 mg (3 x 400 mg) PO BID montelukast 10 mg PO DAILY nystatin 5 mL PO DAILY 10 days nystatin-triamcinolone 100,000-0.1 unit/g-% 1 appl topical TID olopatadine 0.2% 1 drp ophthalmic (eye) DAILY PRN 30 days omeprazole 40 mg PO DAILY polyethylene glycol 3350 (Miralax) 17 grams PO DAILY 7 days rosuvastatin 40 mg PO DAILY tizanidine 2 mg PO TID PRN 30 days Tobacco use date assessed: 01/24/24 Dental Screening Dental Screen Date: 11/05/23 HPI HPI Comments History of Present Illness Details Here today for close interval follow up of rash on left breast and vagina. At the last office visit she was prescribed a topical antifungal and steroid cream to be used 3 times per day to the affected areas. She reports that she has been using this although has missed a couple of doses. Overall she thinks the rash of the left breast is gone and feels that the rash is also gone to the external vaginal tissue. She no longer has any itching. She does have some itching underneath her abdomen however that is new since the last office visit. She no longer endorses any concern about esophageal thrush today. She also requests refills of her rosuvastatin, vitamin-D and Lamictal Exam: Skin of left breast clear. The external vaginal tissue clear. She does have the start of a candidal rash under her pannus. Plan: Recommend applying topical cream to the left breast only until the end of the day today and then stop as the rash has resolved. Continue to apply to external genitalia for 2-3 days and then stop. Recommend starting to apply to pannus where the area she area exist for about 7 days or until resolved. Refill sent as requested. Encouraged her to follow up with the primary care. This note is constructed using voice recognition software. While every effort has been made to ensure accuracy in joy loading machine operator, still errors may have been included Sometimes, these errors may affect the content or meaning of the given sentence . Total time spent caring for the patient today was 30 minutes. This includes time spent before the visit reviewing the chart, time spent during the visit, and time spent after the visit on documentation [facility] Medical History Tubular adenoma Chronic idiopathic constipation Crohn disease Unspecified asthma, uncomplicated Dysuria Surgical History Hx of colonoscopy History of esophagogastroduodenoscopy (EGD) No pertinent past surgical history Family History Father Suicide Mother Hypertension Diabetes Paternal Grandmother Stroke Brother In good health Sister In good health Social History Housing: Other Housing Other:: mobile home Alcohol intake: current Alcohol intake frequency: does not drink Patient Tobacco Use Status: Never used Tobacco e-Cigarette/Vaping Use: Never Used Second Hand Smoke Exposure: Yes service: No Current occupational status: disabled Current occupational exposures/hazards: No Cognitive needs: No Hearing needs: No Vision needs: No Questionnaire Thrive Questionnaire Date Thrive assessed: 09/02/23 ZENY-7 AMB Questionnaire ZENY-7 Date ZENY - 7 assessed: 08/30/23 Source: Developed by Drs. Bernardino Ahumada, Peri Valencia, Gordy Victoria and colleagues, with an educational hakeem from [employer]. Physical exam (Primary Care) Vital Signs: Last Vital Signs Pulse 85 04/10/24 13:01 Resp 18 04/10/24 13:01 BP 128/68 04/10/24 13:01 Pulse Ox 97 04/10/24 13:01 Oxygen Delivery Method Room Air 04/10/24 13:01 BMI result Body Mass Index 37.5 Tobacco/Smoking Status: Tobacco use Status Tobacco use date assessed 01/24/24 04/10/24 13:05 Patient Tobacco Use Status Never used Tobacco 04/10/24 13:05 e-Cigarette/Vaping Use Never Used 04/10/24 13:05 Thrive Assessment: Date of Thrive Assessment Date Thrive assessed 09/02/23 04/10/24 13:05 Assessment and Plan Assessment & Plan (1) Yeast infection of the skin: Code(s): B37.2 - Candidiasis of skin and nail Medications: New lamotrigine (Lamictal) 100 mg PO DAILY 30 tabs 0RF Refilled cholecalciferol (vitamin D3) 50 mcg PO DAILY 90 tabs 3RF 3 months rosuvastatin 40 mg PO DAILY 90 tabs 0RF Coding Level of Care Code Est Pt Level 4 (60517) Diagnoses Yeast infection of the skin B37.2
[2024-04-10 13:01] VITALS: BP 128/68; PULSE 85; RESP 18; O2SAT 97; BMI 37.5
== END 2024-04-10 13:26 | disposition home or self-care (01) ==
PROVIDERS: PCP Family Medicine; Visit Provider Nurse Practitioner Family
DX: B37.2 Candidiasis of skin and nail (principal)
CPT/HCPCS: 99214

== ENCOUNTER → 2024-04-17 13:25 | Outpatient (BNV) | payer OTHER, SELFPAY ==
--- NOTE | 2024-04-17 13:25 | MHC.OFFWIV ---
Intake Intake Visit Reasons: Amb Documentation, Candidiasis of mouth Intake Note: here for thrush in mouth Patient Tobacco Use Status: Never used Tobacco Allergies Penicillins [PENICILLINS] Allergy (Severe, Verified 04/17/24 13:28) ANAPHYLAXIS simvastatin Allergy (Mild, Verified 04/17/24 13:28) weird feeling ibuprofen Adverse Reaction (Intermediate, Verified 04/17/24 13:28) stomach upset, irritates Chrsdn's Medication List - Last Reconciled 04/17/24 by SUKHDEV Cristobal- adalimumab (Humira(CF) Pen) 40 mg subcut Q2W albuterol sulfate 90 mcg/actuation 2 puffs inhalation QID PRN albuterol sulfate 2.5 mg (3 mL) inhalation Q4-6H PRN 30 days alendronate 70 mg PO QWEEK 28 days azelastine intranasal budesonide 32 mcg/actuation 1 spray intranasal DAILY cholecalciferol (vitamin D3) 50 mcg PO DAILY 3 months clotrimazole 1% 1 appful vaginal BEDTIME PRN coenzyme Q10 (Co Q-10) 50 mg PO DAILY cranberry extract 250 mg PO DAILY cyanocobalamin (vitamin B-12) 1,000 mcg PO DAILY 30 days diclofenac sodium 1% (Arthritis Pain (diclofenac)) 4 grams topical QID 30 days docusate sodium 200 mg (2 x 100 mg) PO BID 3 months epinephrine (EpiPen 2-Isma) 0.3 mg (0.3 mL) IM Q10M PRN lamotrigine (Lamictal) 100 mg PO DAILY loratadine 10 mg PO DAILY 90 days lorazepam 0.5 mg PO BID PRN mesalamine 1,200 mg (3 x 400 mg) PO BID montelukast 10 mg PO DAILY nystatin 5 mL PO DAILY 10 days nystatin-triamcinolone 100,000-0.1 unit/g-% 1 appl topical TID olopatadine 0.2% 1 drp ophthalmic (eye) DAILY PRN 30 days omeprazole 40 mg PO DAILY polyethylene glycol 3350 (Miralax) 17 grams PO DAILY 7 days rosuvastatin 40 mg PO DAILY tizanidine 2 mg PO TID PRN 30 days HPI HPI Comments History of Present Illness Details Female here today with chief complaints of oral thrush. She is on an inhaled steroid inhaler. She reports itching sensation in the back of her throat that has been present for a few weeks. She reports a history of oral candidiasis in the past. She reports she does her best to rinse her mouth out after use. However she does get this from time to time. Exam: Wearing mask, declined to remove @ time of visit - fearful of getting sick Plan Nystatin oral swish and swallow. Oral hygiene status post use of inhaled corticosteroid inhalers. [facility] Medical History Tubular adenoma Chronic idiopathic constipation Crohn disease Unspecified asthma, uncomplicated Dysuria Surgical History Hx of colonoscopy History of esophagogastroduodenoscopy (EGD) No pertinent past surgical history Family History Father Suicide Mother Hypertension Diabetes Paternal Grandmother Stroke Brother In good health Sister In good health Social History Housing: Other Housing Other:: mobile home Alcohol intake: current Alcohol intake frequency: does not drink Patient Tobacco Use Status: Never used Tobacco e-Cigarette/Vaping Use: Never Used Second Hand Smoke Exposure: Yes service: No Current occupational status: disabled Current occupational exposures/hazards: No Cognitive needs: No Hearing needs: No Vision needs: No Assessment & Plan Assessment & Plan (1) Thrush: Code(s): B37.0 - Candidal stomatitis Plan: . Plan . Medications: New nystatin administer 1/2 of dose in each side of the mouth 500,000 units (5 mL) PO DAILY 14 days 70 mL 0RF Coding Level of Care Code Est Pt Level 3 (09933) Diagnoses Thrush B37.0
== END ==
PROVIDERS: PCP Family Medicine; Visit Provider Nurse Practitioner Family
DX: B37.0 Candidal stomatitis (principal)
CPT/HCPCS: 99213

== ENCOUNTER 2024-05-11 11:59 | Outpatient (AMB) | payer OTHER, SELFPAY ==
--- NOTE | 2024-05-11 12:10 | A.OFFPC_ITS ---
Vital Signs 05/11/24 12:13 Height 5 ft Weight 198 lb BMI 38.7 BP 138/78 Blood Pressure Location Lt brachial Position Sitting Respiration 15 Pulse 88 Pulse Source Pulse Oximeter Pulse Oximetry (%) 97 Oxygen Delivery Method Simple Mask Intake Visit Reasons: [facility] from [facility] Intake Note: follow up and patient also complaining about right knee pain, right eye irritation Allergies Penicillins [PENICILLINS] Allergy (Severe, Verified 05/11/24 12:39) ANAPHYLAXIS simvastatin Allergy (Mild, Verified 05/11/24 12:39) weird feeling ibuprofen Adverse Reaction (Intermediate, Verified 05/11/24 12:39) stomach upset, [facility] Last Reconciled 05/11/24 by Olivia Sal, INDUSTRIAL HYGIENE ENGINEER-BC adalimumab (Humira(CF) Pen) 40 mg subcut Q2W albuterol sulfate 90 mcg/actuation 2 puffs inhalation QID PRN albuterol sulfate 2.5 mg (3 mL) inhalation Q4-6H PRN 30 days alendronate 70 mg PO QWEEK 28 days azelastine intranasal budesonide 32 mcg/actuation 1 spray intranasal DAILY cholecalciferol (vitamin D3) 50 mcg PO DAILY 3 months clotrimazole 1% 1 appful vaginal BEDTIME PRN coenzyme Q10 (Co Q-10) 50 mg PO DAILY cranberry extract 250 mg PO DAILY cyanocobalamin (vitamin B-12) 1,000 mcg PO DAILY 30 days diclofenac sodium 1% (Arthritis Pain (diclofenac)) 4 grams topical QID 30 days docusate sodium 200 mg (2 x 100 mg) PO BID 3 months epinephrine (EpiPen 2-Isma) 0.3 mg (0.3 mL) IM Q10M PRN lamotrigine (Lamictal) 100 mg PO DAILY loratadine 10 mg PO DAILY 90 days lorazepam 0.5 mg PO BID PRN mesalamine 1,200 mg (3 x 400 mg) PO BID montelukast 10 mg PO DAILY nystatin 5 mL PO DAILY 10 days nystatin 500,000 units (5 mL) PO DAILY 14 days nystatin-triamcinolone 100,000-0.1 unit/g-% 1 appl topical TID olopatadine 0.2% 1 drp ophthalmic (eye) DAILY PRN 30 days omeprazole 40 mg PO DAILY polyethylene glycol 3350 (Miralax) 17 grams PO DAILY 7 days rosuvastatin 40 mg PO DAILY tizanidine 2 mg PO TID PRN 30 days Tobacco use date assessed: 01/24/24 Dental Screening Dental Screen Date: 11/05/23 HPI HPI Comments History of Present Illness Details 54 y/o female here today with chief comp laints of itchy right eye that started a few days ago. Associated symptoms include watering, sticking of the right eye shut upon waking, nasal congestion head feels like a balloon . Has no allergies and has been treating with oral, ophthalmic and nasal antihistamines without effect. She denies any fever, chills, visual changes, sore throat, cough, chest pain. She also complains of chronic right knee swelling that has been present for months. She did have an x-ray done in 10/23/2023. This x-ray was reviewed. See results below. She is active with Rheumatology, Dr Gudino, for ankylosing spondylosis and she is currently on Humira. Reports that she had an appointment scheduled however it was rescheduled. Tells me it was not to evaluate the right knee however. Would like to see Orthopedics for evaluation and treatment of the right knee. Denies any new injury. Reports pain. Limping. Finally she complains of recurrent candidal rash in her urine. She was using a topical antifungal cream however the tube spilled and she does not have anymore. Exam: Awake alert NAD Sclera and conjunctiva clear bilat, Right eye periorbital erythema, drying, purulent d/c, no photophobia Nares patent, turbinates within normal limits, bilat front sinus tenderness TM intact and clear bilat MMM, pharynx WNL RRR LS CTAB Right knee FROM, pain w palpation anteriorly, neurovasc intact under bilat breast clear, under pannus clear, right groin and external vaginal tissue + erythema c/w candidia Plan [facility] Ortho referral for Right knee pain. She should cont to fu with Rheum for issues Zpak to treat sinusitis and her R eye. Cont to use antihistamines as currently prescribed. Topical antifungal and steroid cream reordered to treat rash. This has worked well in the past. Requested labs to be done today, as she has severe anxiety related to her health, these are not clinically indicated however ordered. See below for results, these are normal. RTO in 2 weeks for re-check, sooner PRN This note is constructed using voice recognition software. While every effort has been made to ensure accuracy in manager ethics, still errors may have been included Sometimes, these errors may affect the content or meaning of the given sentence . Total time spent caring for the patient today was 40 minutes. This includes time spent before the visit reviewing the chart, time spent during the visit, and time spent after the visit on documentation [facility] Medical History Tubular adenoma Chronic idiopathic constipation Crohn disease Unspecified asthma, uncomplicated Dysuria Surgical History Hx of colonoscopy History of esophagogastroduodenoscopy (EGD) No pertinent past surgical history Family History Father Suicide Mother Hypertension Diabetes Paternal Grandmother Stroke Brother In good health Sister In good health Social History Housing: Other Housing Other:: mobile home Alcohol intake: current Alcohol intake frequency: does not drink Patient Tobacco Use Status: Never used Tobacco e-Cigarette/Vaping Use: Never Used Second Hand Smoke Exposure: Yes service: No Current occupational status: disabled Current occupational exposures/hazards: No Cognitive needs: No Hearing needs: No Vision needs: No Questionnaire PHQ-9 Over the last 2 weeks, how often have you been bothered by any of the following problems? 1. Little interest or pleasure in doing things: more than half the days 2. Feeling down, depressed, or hopeless: several days 3. Trouble falling or staying asleep, or sleeping too much: several days 4. Feeling tired or having little energy: several days 5. Poor appetite or overeating: several days 6. Feeling bad about yourself - or that you are a failure or have let yourself or your family down: more than half the days 7. Trouble concentrating on things, such as reading the newspaper or watching television: more than half the days 8. Moving or speaking so slowly that other people could have noticed. Or the opposite - being so fidgety or restless that you have been moving around a lot more than usual: several days 9. Thoughts that you would be better off or of hurting yourself in some way: not at all Total score: 11 69456 - PHQ-9 Billing: Yes Source: Developed by Drs. Bernardino Ahumada, Peri Valencia, Gordy Victoria and colleagues, with an educational hakeem from [employer]. Thrive Questionnaire Date Thrive assessed: 09/02/23 AUDIT C Alcohol Use Questionnaire (AUDIT-C) 1. How often do you have a drink containing alcohol?: Never 3. How often do you have six or more drinks on one occasion?: Never Total Score: 0 ZENY-7 AMB Questionnaire ZENY-7 Date ZENY - 7 assessed: 05/11/24 Feeling nervous, anxious, or on edge: 1 = Several days Not being able to stop or control worryin = More than half the days Worrying too much about different things: 3 = Nearly every day Trouble relaxin = More than half the days Being so restless that it is hard to sit still: 2 = More than half the days Becoming easily annoyed or irritable: 2 = More than half the days Feeling afraid as if something awful might happen: 3 = Nearly every day Total ZENY-7 score (0-4 normal; 5-9 mild; 10-14 moderate; 15-21 severe): 15 Source: Developed by Drs. Bernardino Ahumada, Peri Valencia, Gordy Victoria and colleagues, with an educational hakeem from [employer]. ZENY-7 Assessment Billing ZENY-7 Assessment Tool: ZENY-7 Assessment 77857 Physical exam (Primary Care) Vital Signs: Last Vital Signs Pulse 88 05/11/24 12:13 Resp 15 05/11/24 12:13 BP 138/78 05/11/24 12:13 Pulse Ox 97 05/11/24 12:13 Oxygen Delivery Method Simple Mask 05/11/24 12:13 BMI result Body Mass Index 38.7 Tobacco/Smoking Status: Tobacco use Status Tobacco use date assessed 01/24/24 05/11/24 12:12 Patient Tobacco Use Status Never used Tobacco 05/11/24 12:12 e-Cigarette/Vaping Use Never Used 05/11/24 12:12 PHQ-9: PHQ-9 Score PHQ-9: Total score 11 05/11/24 12:39 Thrive Assessment: Date of Thrive Assessment Date Thrive assessed 09/02/23 05/11/24 12:12 Results Reviewed Results Reviewed: [address] [place] [address] XRay Report Signed Patient: Josselin Harrington MR#: [id number] : 1970 Acct:[id number] Age/Sex: 53 / F ADM Date: 10/15/23 Loc: HO.US Attending Dr: Layton Ward MD Ordering Physician: Layton Ward MD Date of Service: 10/15/23 Procedure(s): XR knee LT 3V Accession Number(s): [id number] cc: Layton Ward MD~ EXAMINATION: XR KNEE, LEFT CLINICAL INFORMATION: Pain in left knee COMPARISON: None available. TECHNIQUE: 3 views of the left knee. FINDINGS: No fracture. Small joint effusion. Mild soft tissue swelling is seen anterior and inferior to the patella. There is mild increased density in Hoffa's fat pad. Alignment is anatomic. There is mild narrowing of the patellofemoral joint compartment. Quadriceps enthesopathy is noted. XR/XR knee LT 3V IMPRESSION: 1. Mild osteoarthritis. 2. Small joint effusion. 3. Mild soft tissue swelling anterior and inferior to the patella. Dictated By: Heather Larson MD Signed By: <Electronically signed by Heather Larson MD in OV> 10/17/23 1303 DD/ 1328 TD/TT: Skein Inspector: [facility] [address] [place] [address] Lamp Mechanic: Layton Bermeo M.D. Specimen Inquiry Name: Josselin Harrington Age/Sex: 54/F : 1970 Unit#: [id number] Attend Dr: Olivia Sal INDUSTRIAL HYGIENE ENGINEER-BC Re05/11/24 Status: DEP REF Location: [facility] Disch: SPEC : [id number] HADLEY: 05/11/24 STATUS: COMP REQ : [id number] RECD: 05/11/24-[address]: Olivia Sal INDUSTRIAL HYGIENE ENGINEER-BC COMP: 05/11/24 ENTERED: 05/11/[address]: ORDERED: BMP, TSH Rflx Test Result Flag Reference Sodium 140 135-145 mmol/L Potassium 3.8 3.3-5.1 mmol/L CL 105 96-108 mmol/L CO2 27 22-29 mmol/L Gap 12 12-20 BUN 5 L 9-16 mg/dL Creat 0.71 0.5-1.4 mg/dL EGFR > 60 NOTE: For -[place] individuals, multiply the result by 1.210. Chronic Kidney Disease: Estimated GFR < 60 mL/min/1.73m2 Severe Kidney Disease: Estimated GFR < 15 mL/min/1.73m2 Glucose, Random 120 H 60-115 mg/dL CA 9.8 8.4-10.2 mg/dL TSH 1.49 0.32-4.0 uIU/mL END OF REPORT Coding Level of Care Code Est Pt Level 5 (54845) Complex EM visit Add On G2211 Diagnoses Acute bacterial sinusitis J01.90; B96.89 Acute atopic conjunctivitis of right eye H10.11 Conjunctivitis type: acute Acute conjunctivitis type: atopic Nicolle rash of groin B37.89 Effusion of knee joint right M25.461 Obesity (BMI 30-39.9) E66.9 Pre-diabetes R73.03 Additional Codes ZENY-7 Assessment Billing - ZENY-7 Assessment Tool: ZENY-7 Assessment 12649 ([id number]) Assessment & Plan Assessment & Plan (1) Acute bacterial sinusitis: Code(s): J01.90 - Acute sinusitis, unspecified; B96.89 - Other specified bacterial agents as the cause of diseases classified elsewhere Plan: . (2) Conjunctivitis, right eye: Code(s): H10.9 - Unspecified conjunctivitis Qualifiers: Conjunctivitis type: acute Acute conjunctivitis type: atopic Qualified Code(s): H10.11 - Acute atopic conjunctivitis, right eye (3) Nicolle rash of groin: Code(s): B37.89 - Other sites of candidiasis (4) Effusion of knee joint right: Code(s): M25.461 - Effusion, right knee Category: Medical Plan: . (5) Obesity (BMI 30-39.9): Code(s): E66.9 - Obesity, unspecified Category: Medical Plan: . (6) Pre-diabetes: Code(s): R73.03 - Prediabetes Category: Medical Plan: . Plan . Orders: Orders TSH reflex Free T4 05/11/24 E66.9 - Obesity, unspecified, R73.03 - Prediabetes Basic Metabolic Panel 05/11/24 E66.9 - Obesity, unspecified, R73.03 - Prediabetes Hemoglobin A1c 05/11/24 E66.9 - Obesity, unspecified, R73.03 - Prediabetes Referrals Orthopedics Referral M25.461 - Effusion, right knee Medications: New azithromycin For 250 mg dose pack: take 500 mg today (day 1), then 250 mg for 4 days (days 2-5) PO 5 days 6 tabs 0RF Refilled nystatin-triamcinolone 100,000-0.1 unit/g-% 1 appl topical TID 30 grams 0RF Discontinued nystatin administer 1/2 of dose in each side of the mouth Discontinued Reason: Duplicate 500,000 units (5 mL) PO DAILY 14 days 70 mL 0RF Patient Instructions: What Is It? Sinuses are air-filled spaces behind the bones of the upper face: between the eyes and behind the forehead, nose and cheeks. The lining of the sinuses are made up of cells with tiny hairs on their surfaces called cilia. Other cells in the lining produce mucus. The mucus traps germs and pollutants and the cilia push the mucus out through narrow sinus openings into the nose. When the sinuses become inflamed or infected, the mucus thickens and clogs the openings to one or more sinuses. Fluid builds up inside the sinuses causing increased pressure. Also bacteria can become trapped, multiply and infect the lining. This is sinusitis. Prevention There are some measures you can take to decrease your risk of developing sinusitis. If you smoke cigarettes, you should quit. The smoke can irritate nasal passageways and increase the likelihood of infection. Nasal allergies can trigger sinus infections, too. By identifying the allergen (the substance causing the allergic reaction) and avoiding it, you can help prevent sinusitis. If you have congestion from a cold or allergies, the following may help to reduce the risk of developing sinusitis: Drink lots of water. This thins nasal secretions and keeps mucous membranes moist. Use steam to soothe nasal passages. Breathe deeply while standing in a hot shower, or in chau the vapor from a basin filled with hot water while holding a towel over your head. Avoid blowing your nose with great force, which can push bacteria into the sinuses. Some doctors advise periodic home nasal washings to clear secretions. This may help prevent, and also treat, sinus infections. Treatment Many sinus infections improve without treatment. However, several medications may speed recovery and reduce the chance that an infection will become chronic. Decongestants - Congestion often triggers sinus infections, and decongestants can open the sinuses and allow them to drain. Several are available: Pseudoephedrine (Sudafed) is available without prescription, alone or in combination with other medications in multi-symptom cold and sinus remedies. Pseudoephedrine can cause insomnia, racing pulse and jitteriness. Do not use if you have high blood pressure or a heart condition. Phenylephrine (such as Sudafed PE) is an alternative stlu-nmx-egstoik oral decongestant. If you take products containing oral phenylephrine, check with the pharmacist to be certain there is no interaction with other medications you take. Oxymetazoline (AfrinSylvia and others) and phenylephrine (Zachary-Synephrine and others) are found in nasal sprays. They are effective and may be less likely to cause the side effects seen with pseudoephedrine. However, using a nasal decongestant for more than three days can cause worse symptoms when you stop the medication. This is called the rebound effect. Antihistamines - These medications help to relieve the symptoms of nasal allergies that lead to inflammation and infections. However, some doctors advise against using antihistamines during a sinus infection because they can cause excessive drying and slow the drainage process. Stoj-ibk-oykwwvr antihistamines include diphenhydramine (Benadryl and others), chlorpheniramine (Chlor-Trimeton and others) and loratadine (Claritin). Fexofenadine (Jocelyne) and cetrizine (Zyrtec) are available by prescription. Nasal steroids - Anti-inflammatory sprays such as mometasone (Nasonex) and fluticasone (Flonase), both available by prescription, reduce swelling of nasal membranes. Like antihistamines, nasal steroids can be most useful for those who have nasal allergies. Nasal steroids tend to produce less drying than antihistamines. Unlike nasal decongestants, nasal steroids can be used for prolonged periods. Saline nasal sprays - These salt-water sprays are safe to use and can provide some relief by adding moisture to the nasal passages, thinning mucus secretions and helping to flush out any bacteria that may be present. Pain relievers - Acetaminophen (Tylenol), ibuprofen (Advil, Motrin and others) or naproxen (Aleve) can be taken sinus pain. Antibiotics - Your doctor may prescribe an antibiotic if he or she suspects that a bacterial infection is causing your sinusitis. If you start taking an antibiotic, complete the entire course so that the infection is completely killed off. Not all cases of sinusitis require antibiotic treatment: Talk with your doctor about whether an antibiotic is right for you. Keep in mind that antibiotics can cause side effects, such as allergic reactions, rash and diarrhea. In addition, overusing antibiotics eventually leads to the spread of bacteria that no longer can be killed by the most commonly prescribed antibiotics. When To Call A Professional Contact a doctor if you experience facial pain along with a headache and fever, cold symptoms that last longer than seven to 10 days, or persistent green discharge from the nose. If your symptoms don't improve within a week of beginning treatment, call your doctor. Call sooner if symptoms are getting worse. If you have repeated bouts of acute sinusitis, you may have allergies or another treatable cause of sinus congestion. Ask your doctor for advice.
[2024-05-11 12:13] VITALS: BP 138/78; PULSE 88; RESP 15; O2SAT 97; BMI 38.7
== END 2024-05-11 13:00 | disposition home or self-care (01) ==
PROVIDERS: PCP Family Medicine; Visit Provider Nurse Practitioner Family
DX: J01.90 Acute sinusitis, unspecified (principal); E66.812 Obesity, class 2; Z68.38 Body mass index [BMI] 38.0-38.9, adult; B96.89 Other specified bacterial agents as the cause of diseases classified elsewhere; H10.11 Acute atopic conjunctivitis, right eye; B37.89 Other sites of candidiasis; M25.461 Effusion, right knee; R73.03 Prediabetes

== ENCOUNTER → 2024-05-11 11:59 | Outpatient (BNVA) | payer OTHER, SELFPAY | PROVIDERS: PCP Family Medicine; Visit Provider Nurse Practitioner Family | DX: J01.90 Acute sinusitis, unspecified (principal); H10.11 Acute atopic conjunctivitis, right eye; B37.89 Other sites of candidiasis; E66.9 Obesity, unspecified; M25.461 Effusion, right knee; R73.03 Prediabetes; B96.89 Other specified bacterial agents as the cause of diseases classified elsewhere | CPT/HCPCS: 96127; 99212 ==

== ENCOUNTER 2024-05-11 13:10 | Outpatient (REF) | payer OTHER, SELFPAY ==
[2024-05-11 14:27] LABS: Estimated Average Glucose 123 mg/dL; Hemoglobin A1C 143.5633 umol/L; Hemoglobin A1c % 5.9 % (<6.0); Total Hemoglobin (HGBA1C) 3548.6741 umol/L
[2024-05-11 18:42] LABS: Anion Gap 12 (12-20); Blood Urea Nitrogen 5 mg/dL (9-16); Calcium 9.8 mg/dL (8.4-10.2); Carbon Dioxide 27 mmol/L (22-29); Chloride 105 mmol/L (96-108); Estimated Glomerular Filt Rate > 60; Glucose Random 120 mg/dL (60-115); Potassium 3.8 mmol/L (3.3-5.1); Sodium 140 mmol/L (135-145)
[2024-05-11 18:59] LABS: TSH reflex Free T4 1.49 uIU/mL (0.32-4.0)
== END 2024-05-11 13:11 | disposition home or self-care (01) ==
LOC: HO.WFDLDS 13:10
PROVIDERS: Visit Provider Nurse Practitioner Family
DX: R73.03 Prediabetes (principal); E66.9 Obesity, unspecified
CPT/HCPCS: 36415; 80048; 83036; 84443

== ENCOUNTER 2024-05-13 13:51 | Outpatient (AMB) | payer OTHER, SELFPAY ==
--- NOTE | 2024-05-13 14:00 | MHC.OFFVIS ---
Vital Signs 05/13/24 14:02 Height 5 ft Weight 196 lb 3.382 oz BMI 38.3 BP 156/86 H Blood Pressure Location Lt brachial Position Sitting Pulse 82 Pulse Source Pulse Oximeter Pulse Oximetry (%) 96 Oxygen Delivery Method Room Air Intake Visit Reasons: 6 month follow up QUINTANA,GERD, CIC Intake Note: Josselin presents in office today for a scheduled 6 mos FUV. CC; Josselin had labs done per her PCP as of 01/21/2024. Pt was rx'd mesalamine at her last OV. Pt reports that they have been doing OK since their last visit. Pt states that they could be better, however; they are improved from where they started. Pt denies any new sx or concerns and reports that any of their concerns currently relate to their chronic conditions. 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 Increase fiber in her diet. Patient was really encouraged about losing weight. Mildly elevated AST, normal ALT. Patient is fluctuating with her weight. Patient was encouraged to try to go for walks to increase mobility. Continue omeprazole. Avoid dietary triggers. Avoid late night snacking. Staying upright for minimum 3 hours after meals discussed with patient. Patient will return in the office in 6 months, sooner on as needed basis. Patient is agreeable to this plan and verbalizes understanding of instructions. She was given the opportunity to ask questions and all questions answered. ? Thank you for allowing me to participate in her care Medications Changed Changed From mesalamine 1,200 mg (3 x 400 mg) PO BID 120 ea 3RF Changed To mesalamine 1,200 mg (3 x 400 mg) PO BID 120 ea 3RF TODAY'S VISIT Patient is here today for follow-up. Patient reports that since last time I have seen her she has been doing well. Patient continues to take mesalamine as ordered. Takes Colace to help her move her bowels. Patient states that she is not constipated. She feels like she moves her bowels daily. Patient does admit that she will have occasional acid reflux. Per patient not a new symptoms, it is happening more often lately. History of fatty liver will repeat ultrasound and lab results. Liver fibrosis states done in September and is F0, last in January of 2024 AST 32 and ALT 18. Patient denies any melena, hematochezia, unintentional weight loss or ribbon like stools. Patient denies dyspepsia, dysphagia or odynophagia PFSH Medical History Tubular adenoma Chronic idiopathic constipation Crohn disease Unspecified asthma, uncomplicated Dysuria Surgical History Hx of colonoscopy History of esophagogastroduodenoscopy (EGD) No pertinent past surgical history Family History Father Suicide Mother Hypertension Diabetes Paternal Grandmother Stroke Brother In good health Sister In good health Social History Housing: Other Housing Other:: mobile home Alcohol intake: current Alcohol intake frequency: does not drink Patient Tobacco Use Status: Never used Tobacco e-Cigarette/Vaping Use: Never Used Second Hand Smoke Exposure: Yes service: No Current occupational status: disabled Current occupational exposures/hazards: No Cognitive needs: No Hearing needs: No Vision needs: No Review of Systems Const Denies weight gain and Denies weight loss ENT Reports no additional complaints, Denies dysphagia and Denies odynophagia Card Reports no additional complaints Resp Reports no additional complaints GI Denies abdominal pain, Denies belching, Denies melena, Denies bloating, Denies change in bowel habits, Reports constipation, Denies dysphagia, Denies excessive flatus, Denies dyspepsia, Reports heartburn, Denies diarrhea, Denies loose stools, Denies nausea, Denies odynophagia and Denies vomiting Reports no additional complaints Musc Reports no additional complaints Neuro Reports no additional complaints Psych Reports no additional complaints Endo Reports no additional complaints Physical Exam Vital Signs: Last Vital Signs Pulse 82 05/13/24 14:02 BP 156/86 H 05/13/24 14:02 Pulse Ox 96 05/13/24 14:02 Oxygen Delivery Method Room Air 05/13/24 14:02 BMI result Body Mass Index 38.3 Const General: healthy appearing, no acute distress and well developed Nutritional Appearance: obese Orientation/consciousness: patient oriented x3 Resp Effort & Inspection: normal respiratory effort, able to speak in complete sentences, no tracheal deviation and symmetric chest movement Auscultation: clear to auscultation bilaterally Cardio Rate: regular rate GI Inspection: Yes normal to inspection, No distended and Yes obesity Palpation (GI): Soft to palpation, not firm, nontender and No hepatosplenomegaly present Auscultation: normal bowel sounds General: Yes no CVA tenderness Back/Spine/Pelvis Back: no CVA tenderness Skin General skin exam: elasticity normal, turgor normal and dry skin Neuro General: patient oriented x3 Psych Appearance: grossly normal Mental Status: mental status grossly normal Assessment & Plan Assessment & Plan (1) GERD (gastroesophageal reflux disease): Code(s): K21.9 - Gastro-esophageal reflux disease without esophagitis Category: Medical Qualifiers: Esophagitis presence: esophagitis presence not specified Qualified Code(s): K21.9 - Gastro-esophageal reflux disease without esophagitis (2) Abdominal pain: Code(s): R10.9 - Unspecified abdominal pain Category: Medical Qualifiers: Abdominal location: lower abdomen, unspecified Qualified Code(s): R10.30 - Lower abdominal pain, unspecified (3) Chronic idiopathic constipation: Code(s): K59.04 - Chronic idiopathic constipation Category: Medical (4) Crohn disease: Code(s): K50.90 - Crohn's disease, unspecified, without complications Category: Medical Qualifiers: Gastrointestinal tract location: large intestine Digestive disease complication type: without complication Qualified Code(s): K50.10 - Crohn's disease of large intestine without complications (5) History of diverticulitis: Code(s): Z87.19 - Personal history of other diseases of the digestive system (6) Diverticulosis: Code(s): K57.90 - Diverticulosis of intestine, part unspecified, without perforation or abscess without bleeding (7) Transaminitis: Code(s): R74.01 - Elevation of levels of liver transaminase levels Plan Continue low-fat, low carb and low-salt diet. Increase protein. Patient was encouraged about losing weight. Continue Colace 2 capsules daily. Increase fluid intake and activity to promote better bowel motility. Ultrasound of abdomen and liver panel before her next appointment ordered. Reports epigastric pain and occasional acid reflux will start her on low-dose omeprazole, however patient was encouraged to avoid dietary triggers and late night snacking. Staying upright for minimum 3 hours after meals discussed with patient. Next visit in 6 months, sooner on as needed basis. She is agreeable to this plan and verbalizes understanding of instructions. She was given the opportunity to ask questions and all questions answered. Thank you for allowing me to participate in her care Orders: Orders US abdomen limited 6 Months R79.89 - Other specified abnormal findings of blood chemistry Liver Panel 6 Months R74.01 - Elevation of levels of liver transaminase levels Medications: New omeprazole 20 mg PO DAILY 90 tabs 2RF K21.9 - Gastro-esophageal reflux disease without esophagitis Refilled docusate sodium 200 mg (2 x 100 mg) PO BID 360 caps 1RF 3 months K59.00 - Constipation, unspecified Discontinued polyethylene glycol 3350 Discontinued Reason: Doctor's Order 17 grams PO DAILY 7 days 7 ea 0RF Coding Level of Care Code Est Pt Level 3 (32100) Diagnoses Gastroesophageal reflux disease, unspecified whether esophagitis present K21.9 Esophagitis presence: esophagitis presence not specified Lower abdominal pain R10.30 Abdominal location: lower abdomen, unspecified Chronic idiopathic constipation K59.04 Crohn's disease of large intestine without complication K50.10 Gastrointestinal tract location: large intestine Digestive disease complication type: without complication History of diverticulitis Z87.19 Diverticulosis K57.90 Transaminitis R74.01 Time Spent (min) 30 Comment 20 minutes spent with patient and additional 10 minutes spent reviewing her records
[2024-05-13 14:02] VITALS: BP 156/86; PULSE 82; O2SAT 96; BMI 38.3
== END 2024-05-13 14:47 | disposition home or self-care (01) ==
PROVIDERS: PCP Family Medicine; Visit Provider Nurse Practitioner Family
DX: K21.9 Gastro-esophageal reflux disease without esophagitis (principal); R10.30 Lower abdominal pain, unspecified; K59.04 Chronic idiopathic constipation; K50.10 Crohn's disease of large intestine without complications; Z87.19 Personal history of other diseases of the digestive system; K57.90 Diverticulosis of intestine, part unspecified, without perforation or abscess without bleeding; R74.01 Elevation of levels of liver transaminase levels
CPT/HCPCS: 99213

== ENCOUNTER → 2024-05-13 13:51 | Outpatient (BNVA) | payer OTHER, SELFPAY | PROVIDERS: PCP Family Medicine; Visit Provider Nurse Practitioner Family | DX: K75.81 Nonalcoholic steatohepatitis (NASH) (principal); K21.9 Gastro-esophageal reflux disease without esophagitis; K59.04 Chronic idiopathic constipation; R10.30 Lower abdominal pain, unspecified; K50.10 Crohn's disease of large intestine without complications; K57.90 Diverticulosis of intestine, part unspecified, without perforation or abscess without bleeding; R74.01 Elevation of levels of liver transaminase levels; Z87.19 Personal history of other diseases of the digestive system; Z79.899 Other long term (current) drug therapy | CPT/HCPCS: 99212 ==

== ENCOUNTER 2024-06-01 12:56 | Outpatient (AMB) | payer OTHER, SELFPAY ==
--- NOTE | 2024-06-01 12:59 | A.OFFPC_ITS ---
Vital Signs 06/01/24 13:03 Height 5 ft BMI Reason not done Patient refused/unable BP 122/70 Blood Pressure Location Lt brachial Position Sitting Respiration 13 Pulse 76 Pulse Source Pulse Oximeter Pulse Oximetry (%) 98 Oxygen Delivery Method Room Air Intake Visit Reasons: F/U Intake Note: routine follow up Allergies Penicillins [PENICILLINS] Allergy (Severe, Verified 06/01/24 13:13) ANAPHYLAXIS simvastatin Allergy (Mild, Verified 06/01/24 13:13) weird feeling ibuprofen Adverse Reaction (Intermediate, Verified 06/01/24 13:13) stomach upset, irritates [facility] Medication List - Last Reconciled 06/01/24 by Olivia Sal, WOMEN'S STUDIES PROFESSOR-BC adalimumab (Humira(CF) Pen) 40 mg subcut Q2W albuterol sulfate 90 mcg/actuation 2 puffs inhalation QID PRN albuterol sulfate 2.5 mg (3 mL) inhalation Q4-6H PRN 30 days alendronate 70 mg PO QWEEK 28 days azelastine intranasal budesonide 32 mcg/actuation 1 spray intranasal DAILY cholecalciferol (vitamin D3) 50 mcg PO DAILY 3 months clotrimazole 1% 1 appful vaginal BEDTIME PRN coenzyme Q10 (Co Q-10) 50 mg PO DAILY cranberry extract 250 mg PO DAILY cyanocobalamin (vitamin B-12) 1,000 mcg PO DAILY 30 days diclofenac sodium 1% (Arthritis Pain (diclofenac)) 4 grams topical QID 30 days docusate sodium 200 mg (2 x 100 mg) PO BID 3 months epinephrine (EpiPen 2-Isma) 0.3 mg (0.3 mL) IM Q10M PRN fluticasone propion-salmeterol 500-50 mcg/dose inhalation lamotrigine (Lamictal) 100 mg PO DAILY loratadine 10 mg PO DAILY 90 days lorazepam 0.5 mg PO BID PRN mesalamine 1,200 mg (3 x 400 mg) PO BID montelukast 10 mg PO DAILY nystatin 5 mL PO DAILY 10 days nystatin-triamcinolone 100,000-0.1 unit/g-% 1 appl topical TID olopatadine 0.2% 1 drp ophthalmic (eye) DAILY PRN 30 days omeprazole 20 mg PO DAILY rosuvastatin 40 mg PO DAILY tizanidine 2 mg PO TID PRN 30 days Tobacco use date assessed: 01/24/24 Dental Screening Dental Screen Date: 11/05/23 HPI HPI Comments History of Present Illness Details 54 y/o female here today for follow up. Omeprazole was given to her as a capsule and she cannot swallow these. Does well on tablets. I reviewed RX. It was sent by GI as tablets. She is unsure why it was given as a capsule I sent the RX with the comment of dispensing tablets. Hands me a list of all of her meds to review and submit refills for all of them, encouraged to have pharm send me refills as needed. Has appt w/ Ortho at [facility] end of this week for eval and tx of: chronic right knee swelling that has been present for months. She did have an x-ray done in 10/23/2023. This x-ray was reviewed. See results below. She is active with Rheumatology, Dr Gudino, for ankylosing spondylosis and she is currently on Humira. Reports that she had an appointment scheduled however it was rescheduled. Tells me it was not to evaluate the right knee however. Would like to see Orthopedics for evaluation and treatment of the right knee. Denies any new injury. Reports pain. Limping. Completed Zpak. The following sx are now resolved: itchy right eye that started a few days ago. Associated symptoms include watering, sticking of the right eye shut upon waking, nasal congestion head feels like a balloon . Has no allergies and has been treating with oral, ophthalmic and nasal antihistamines without effect. She denies any fever, chills, visual changes, sore throat, cough, chest pain. Wonders about allergy shots, as these were recommended Labs below reviewed w/ her in detail. Exam: Awake alert NAD Sclera and conjunctiva clear bilat Nares patent TM intact and clear bilat MMM, pharynx WNL RRR LS CTAB Right knee FROM, pain w palpation anteriorly, neurovasc intact Plan: FU with ortho for right knee pain consider allergy shots as this may be quite helpful Labs are reassuring OMeprazole tabs sent to pharmacy RTO in 6 months for CPE, sooner PRN Pt requests to be seen sooner d/t health anxiety.... This note is constructed using voice recognition software. While every effort has been made to ensure accuracy in treer, still errors may have been included Sometimes, these errors may affect the content or meaning of the given sentence . Total time spent caring for the patient today was 43 minutes. This includes time spent before the visit reviewing the chart, time spent during the visit, and time spent after the visit on documentation [facility] Medical History Tubular adenoma Chronic idiopathic constipation Crohn disease Unspecified asthma, uncomplicated Dysuria Surgical History Hx of colonoscopy History of esophagogastroduodenoscopy (EGD) No pertinent past surgical history Family History Father Suicide Mother Hypertension Diabetes Paternal Grandmother Stroke Brother In good health Sister In good health Social History Housing: Other Housing Other:: mobile home Alcohol intake: current Alcohol intake frequency: does not drink Patient Tobacco Use Status: Never used Tobacco e-Cigarette/Vaping Use: Never Used Second Hand Smoke Exposure: Yes service: No Current occupational status: disabled Current occupational exposures/hazards: No Cognitive needs: No Hearing needs: No Vision needs: No Questionnaire PHQ-9 Over the last 2 weeks, how often have you been bothered by any of the following problems? 2. Feeling down, depressed, or hopeless: more than half the days 3. Trouble falling or staying asleep, or sleeping too much: several days 4. Feeling tired or having little energy: several days 5. Poor appetite or overeating: several days 6. Feeling bad about yourself - or that you are a failure or have let yourself or your family down: several days 7. Trouble concentrating on things, such as reading the newspaper or watching television: several days 8. Moving or speaking so slowly that other people could have noticed. Or the opposite - being so fidgety or restless that you have been moving around a lot more than usual: several days 9. Thoughts that you would be better off or of hurting yourself in some way: not at all [facility] - PHQ-9 Billing: Yes Source: Developed by Drs. Bernardino Ahumada, Gordy Angel and colleagues, with an educational hakeem from [employer]. Thrive Questionnaire Date Thrive assessed: 06/01/24 I am a: Patient What is your living situation today?: I have a steady place to live Within the past 12 months, did the food you bought not last and you didn't have the money to get more?: Often true Within the past 12 months, did you worry whether your food would run out before you got money to buy more?: Sometimes True Do you have trouble paying for medicines?: No Do you have trouble getting transportation to medical appointments?: No Do you have trouble paying your heating and electricity bill?: Yes Do you have trouble taking care of your child, family member or friend?: No Do you have trouble with day-to-day activities such as bathing, preparing meals, shopping, managing finances, etc.?: No Are you currently unemployed and looking for a job?: No Are you interested in more education?: No Please select the resources that you would like help with: None Currently or been in a relationship where the following occur: I choose not to answer THRIVE Score: 3 AUDIT C Alcohol Use Questionnaire (AUDIT-C) 1. How often do you have a drink containing alcohol?: Never Total Score: 0 ZENY-7 AMB Questionnaire ZENY-7 Date ZENY - 7 assessed: 06/01/24 Feeling nervous, anxious, or on edge: 1 = Several days Not being able to stop or control worryin = Several days Worrying too much about different things: 1 = Several days Trouble relaxin = Several days Being so restless that it is hard to sit still: 1 = Several days Becoming easily annoyed or irritable: 0 = Not at all Feeling afraid as if something awful might happen: 2 = More than half the days Total ZENY-7 score (0-4 normal; 5-9 mild; 10-14 moderate; 15-21 severe): 7 Source: Developed by Drs. Bernardino Ahumada, Gordy Angel and colleagues, with an educational hakeem from [employer]. ZENY-7 Assessment Billing ZENY-7 Assessment Tool: ZENY-7 Assessment 18338 Physical exam (Primary Care) Vital Signs: Last Vital Signs Pulse 76 06/01/24 13:03 Resp 13 06/01/24 13:03 BP 122/70 06/01/24 13:03 Pulse Ox 98 06/01/24 13:03 Oxygen Delivery Method Room Air 06/01/24 13:03 Tobacco/Smoking Status: Tobacco use Status Tobacco use date assessed 01/24/24 06/01/24 13:01 Patient Tobacco Use Status Never used Tobacco 06/01/24 13:01 e-Cigarette/Vaping Use Never Used 06/01/24 13:01 Thrive Assessment: Date of Thrive Assessment Date Thrive assessed 06/01/24 06/01/24 13:01 Currently or been in a relationship where the following occur: I choose not to answer Results Reviewed Results Reviewed: RUN: 06/01/24 1320 PAGE 1 [facility] [address] [place] [id number] Director Of Managed Services: Layton Bermeo M.D. Specimen Inquiry Name: Josselin Harrington Age/Sex: 54/F : 1970 Unit#: [id number] Attend Dr: Olivia Sal Re05/11/24 Status: DEP REF Location: [id number] Disch: SPEC : [id number] HADLEY: 05/11/24 STATUS: COMP REQ : [id number] RECD: 05/11/[address]: Olivia Sal COMP: 05/11/24 ENTERED: 05/11/[address]: ORDERED: BMP, TSH Rflx Test Result Flag Reference Sodium 140 135-145 mmol/L Potassium 3.8 3.3-5.1 mmol/L CL 105 96-108 mmol/L CO2 27 22-29 mmol/L Gap 12 12-20 BUN 5 L 9-16 mg/dL Creat 0.71 0.5-1.4 mg/dL EGFR > 60 NOTE: For -[place] individuals, multiply the result by 1.210. Chronic Kidney Disease: Estimated GFR < 60 mL/min/1.73m2 Severe Kidney Disease: Estimated GFR < 15 mL/min/1.73m2 Glucose, Random 120 H 60-115 mg/dL CA 9.8 8.4-10.2 mg/dL TSH 1.49 0.32-4.0 uIU/mL END OF REPORT Coding Level of Care Code Est Pt Level 5 (85779) Complex EM visit Add On G2211 Diagnoses Effusion of knee joint right M25.461 Gastroesophageal reflux disease, unspecified whether esophagitis present K21.9 Esophagitis presence: esophagitis presence not specified Additional Codes ZENY-7 Assessment Billing - ZENY-7 Assessment Tool: ZENY-7 Assessment 21514 ([id number]) Assessment & Plan Assessment & Plan (1) Effusion of knee joint right: Code(s): M25.461 - Effusion, right knee Category: Medical Plan: . (2) GERD (gastroesophageal reflux disease): Code(s): K21.9 - Gastro-esophageal reflux disease without esophagitis Category: Medical Qualifiers: Esophagitis presence: esophagitis presence not specified Qualified Code(s): K21.9 - Gastro-esophageal reflux disease without esophagitis Plan: . Plan . Medications: Refilled omeprazole 20 mg PO DAILY 90 tabs 2RF K21.9 - Gastro-esophageal reflux disease without esophagitis
[2024-06-01 13:03] VITALS: BP 122/70; PULSE 76; RESP 13; O2SAT 98
== END 2024-06-01 14:15 | disposition home or self-care (01) ==
LOC: HO.HMCFM 12:56
PROVIDERS: PCP Family Medicine; Visit Provider Nurse Practitioner Family
DX: M25.461 Effusion, right knee (principal); K21.9 Gastro-esophageal reflux disease without esophagitis; Z13.89 Encounter for screening for other disorder

== ENCOUNTER → 2024-06-01 12:56 | Outpatient (BNVA) | payer OTHER, SELFPAY | PROVIDERS: PCP Family Medicine; Visit Provider Nurse Practitioner Family | DX: M25.461 Effusion, right knee (principal); K21.9 Gastro-esophageal reflux disease without esophagitis | CPT/HCPCS: 96127; 99212 ==

== ENCOUNTER 2024-06-04 08:34 | Outpatient (AMB) | payer OTHER, SELFPAY ==
--- NOTE | 2024-06-04 08:42 | MHC.OFFVIS ---
Intake Visit Reasons: Right knee pain and giving way Intake Note: Josselin is a 54 yo female who presents with complaints of progressively worsening right knee pain and giving way. The patient describes her pain as sharp nature. Most of the pain is along the medial aspect of her right knee. She did injure her right knee approximately 1 year ago. She twisted her knee and had acute onset of pain. Since that time her symptoms have gotten worse in spite of continued non operative treatments. She has failed the last 6 weeks of conservative treatment which have included physical therapy exercises, topical creams, Tylenol and anti-inflammatory medicines. The patient states that her right knee will give out several times per day. She also has intermittent discomfort in her left knee as well. At this point her left knee pain is tolerable to her. She denies any mechanical symptoms in her left knee. Allergies Penicillins [PENICILLINS] Allergy (Severe, Verified 06/04/24 08:46) ANAPHYLAXIS simvastatin Allergy (Mild, Verified 06/04/24 08:46) weird feeling ibuprofen Adverse Reaction (Intermediate, Verified 06/04/24 08:46) stomach upset, irritates Jennifertnnatalie's Medication List - Last Reconciled 06/05/24 by Andrea Ponce MD adalimumab (Humira(CF) Pen) 40 mg subcut Q2W albuterol sulfate 90 mcg/actuation 2 puffs inhalation QID PRN albuterol sulfate 2.5 mg (3 mL) inhalation Q4-6H PRN 30 days alendronate 70 mg PO QWEEK 28 days azelastine intranasal budesonide 32 mcg/actuation 1 spray intranasal DAILY cholecalciferol (vitamin D3) 50 mcg PO DAILY 3 months clotrimazole 1% 1 appful vaginal BEDTIME PRN coenzyme Q10 (Co Q-10) 50 mg PO DAILY cranberry extract 250 mg PO DAILY cyanocobalamin (vitamin B-12) 1,000 mcg PO DAILY 30 days diclofenac sodium 1% (Arthritis Pain (diclofenac)) 4 grams topical QID 30 days docusate sodium 200 mg (2 x 100 mg) PO BID 3 months epinephrine (EpiPen 2-Isma) 0.3 mg (0.3 mL) IM Q10M PRN fluticasone propion-salmeterol 500-50 mcg/dose inhalation lamotrigine (Lamictal) 100 mg PO DAILY loratadine 10 mg PO DAILY 90 days lorazepam 0.5 mg PO BID PRN mesalamine 1,200 mg (3 x 400 mg) PO BID montelukast 10 mg PO DAILY nystatin 5 mL PO DAILY 10 days nystatin-triamcinolone 100,000-0.1 unit/g-% 1 appl topical TID olopatadine 0.2% 1 drp ophthalmic (eye) DAILY PRN 30 days omeprazole 20 mg PO DAILY rosuvastatin 40 mg PO DAILY tizanidine 2 mg PO TID PRN 30 days PFSH Medical History Tubular adenoma Chronic idiopathic constipation Crohn disease Unspecified asthma, uncomplicated Dysuria Surgical History Hx of colonoscopy History of esophagogastroduodenoscopy (EGD) No pertinent past surgical history Family History Father Suicide Mother Hypertension Diabetes Paternal Grandmother Stroke Brother In good health Sister In good health Social History Housing: Other Housing Other:: mobile home Alcohol intake: current Alcohol intake frequency: does not drink Patient Tobacco Use Status: Never used Tobacco e-Cigarette/Vaping Use: Never Used Second Hand Smoke Exposure: Yes service: No Current occupational status: disabled Current occupational exposures/hazards: No Cognitive needs: No Hearing needs: No Vision needs: No Physical Exam Const Other: Well-nourished well-developed very friendly female awake alert and oriented x3 in no acute distress Extrem Other: Bilateral lower extremity examination shows good capillary refill, no skin lesions noted, normal sensation light touch Right knee examination shows a minimal effusion, minimal crepitus with range of motion, tenderness along her medial joint line, positive Vincent's test, no instability Left knee examination shows a minimal effusion, minimal crepitus with range of motion, negative Vincent's test, no joint line tenderness Results Reviewed Results Reviewed: Standing full weight-bearing x-rays of the patient's bilateral knee show mild diffuse joint space narrowing, no acute bony abnormalities Assessment & Plan Assessment & Plan (1) Tear of medial meniscus of right knee: Code(s): S83.241A - Other tear of medial meniscus, current injury, right knee, initial encounter Category: Medical Plan Ms. Harrington presents with progressively worsening right knee pain and mechanical symptoms most likely due to a tear of her medial meniscus. I will send the patient for an MRI of her right knee for further evaluation. I will see her back once the MRI is completed to discuss the findings and treatment options. Feel free to call me at any time should questions regarding her orthopedic management arise. I spent 22 minutes in reviewing the patient's records and imaging studies, seeing the patient and documenting in the medical record. Orders: Orders XR knee RT 3V 06/04/24 M25.561 - Pain in right knee MR knee RT wo con 06/04/24 S83.241A - Other tear of medial meniscus, current injury, right knee, initial encounter Coding Level of Care Code New Pt Level 3 (82281) Complex EM visit Add On G2211 Diagnoses Tear of medial meniscus of right knee S83.241A
== END 2024-06-04 08:56 | disposition home or self-care (01) ==
LOC: HO.HOS 08:34
PROVIDERS: PCP Family Medicine; Visit Provider Orthopaedic Surgery
DX: S83.241A Other tear of medial meniscus, current injury, right knee, initial encounter (principal)
CPT/HCPCS: 99203; G2211

== ENCOUNTER 2024-06-04 09:48 | Outpatient (REF) | payer OTHER, SELFPAY | END 2024-06-04 09:49 | disposition home or self-care (01) | LOC: HO.HOSX 09:48 | PROVIDERS: Visit Provider Orthopaedic Surgery | DX: M25.561 Pain in right knee (principal); S83.241A Other tear of medial meniscus, current injury, right knee, initial encounter | CPT/HCPCS: 73562; 99202 ==

== ENCOUNTER 2024-07-06 10:47 | Outpatient (AMB) | payer OTHER, SELFPAY ==
--- NOTE | 2024-07-06 11:41 | A.OFFPC_ITS ---
Vital Signs 07/06/24 11:44 Height 5 ft BMI Reason not done Patient refused/unable BP 126/70 Blood Pressure Location Rt brachial Position Sitting Respiration 14 Pulse 85 Pulse Source Pulse Oximeter Pulse Oximetry (%) 97 Oxygen Delivery Method Room Air Intake Visit Reasons: f/u Liver enzymes, PreDM & Head/Neck U/S Intake Note: pt woul like wound on left leg looked at Allergies Penicillins [PENICILLINS] Allergy (Severe, Verified 07/06/24 11:41) ANAPHYLAXIS simvastatin Allergy (Mild, Verified 07/06/24 11:41) weird feeling ibuprofen Adverse Reaction (Intermediate, Verified 07/06/24 11:41) stomach upset, irritates Chrohn's Tobacco use date assessed: 01/24/24 Dental Screening Dental Screen Date: 11/05/23 HPI f/u Liver enzymes, PreDM & Head/Neck U/S HPI Details 54 y/o female presents to f/u ultrasound , chronic conditions. Has complaints of a wound of her leg after a fall due to a mechanical trip. No recent ultrasound for her neck. She has an appt. July [facility] Medical History Tubular adenoma Chronic idiopathic constipation Crohn disease Unspecified asthma, uncomplicated Dysuria Surgical History Hx of colonoscopy History of esophagogastroduodenoscopy (EGD) No pertinent past surgical history Family History Father Suicide Mother Hypertension Diabetes Paternal Grandmother Stroke Brother In good health Sister In good health Social History Housing: Other Housing Other:: mobile home Alcohol intake: current Alcohol intake frequency: does not drink Patient Tobacco Use Status: Never used Tobacco e-Cigarette/Vaping Use: Never Used Second Hand Smoke Exposure: Yes service: No Current occupational status: disabled Current occupational exposures/hazards: No Cognitive needs: No Hearing needs: No Vision needs: No Questionnaire Thrive Questionnaire Date Thrive assessed: 06/01/24 I am a: Patient What is your living situation today?: I have a steady place to live Within the past 12 months, did the food you bought not last and you didn't have the money to get more?: Often true Within the past 12 months, did you worry whether your food would run out before you got money to buy more?: Sometimes True Do you have trouble paying for medicines?: No Do you have trouble getting transportation to medical appointments?: No Do you have trouble paying your heating and electricity bill?: Yes Do you have trouble taking care of your child, family member or friend?: No Do you have trouble with day-to-day activities such as bathing, preparing meals, shopping, managing finances, etc.?: No Are you currently unemployed and looking for a job?: No Are you interested in more education?: No Please select the resources that you would like help with: None Currently or been in a relationship where the following occur: I choose not to answer THRIVE Score: 3 ZENY-7 AMB Questionnaire ZENY-7 Date ZENY - 7 assessed: 06/01/24 Source: Developed by Drs. Bernardino Ahumada, Peri Valencia, Gordy Victoria and colleagues, with an educational hakeem from [employer]. Review of Systems Const Denies chills, Denies fatigue, Denies fever(s), Denies headache(s) and Denies weakness ENT Denies dizziness and Denies headache(s) Card Denies dyspnea Resp Denies cough, Denies dyspnea, Denies wheezing and Denies other (shortness of breath) Musc Denies numbness and Denies tingling Neuro Denies dizziness, Denies headache(s), Denies numbness, Denies tingling and Denies weakness Psych Denies anxiety and Denies depression Endo Denies fatigue Aller/Immun Denies wheezing Physical exam (Primary Care) Vital Signs: Last Vital Signs Pulse 85 07/06/24 11:44 Resp 14 07/06/24 11:44 BP 126/70 07/06/24 11:44 Pulse Ox 97 07/06/24 11:44 Oxygen Delivery Method Room Air 07/06/24 11:44 Tobacco/Smoking Status: Tobacco use Status Tobacco use date assessed 01/24/24 07/06/24 11:47 Patient Tobacco Use Status Never used Tobacco 07/06/24 11:47 e-Cigarette/Vaping Use Never Used 07/06/24 11:47 Thrive Assessment: Date of Thrive Assessment Date Thrive assessed 06/01/24 07/06/24 11:47 Currently or been in a relationship where the following occur: I choose not to answer Const General: well developed; No acute distress Nutritional Appearance: well nourished Orientation/consciousness: patient oriented x3 [facility] Head: Yes normocephalic and Yes atraumatic Eyes General: appearance normal, both eyes and all related structures Pupils: Equal, round and reactive pupils present EOM: EOMs intact bilaterally Resp Effort & Inspection: normal respiratory effort Skin Other: 1 cm wound at L lateral calf. Neuro General: patient oriented x3 and gait normal Cranial nerves: Yes Equal, round and reactive pupils present Psych Affect: normal affect Coding Level of Care Code Est Pt Level 4 (91434) Diagnoses Wound of skin T14.8XXA Age-related osteoporosis with current pathological fracture, initial encounter M80.00XA Encounter type: initial encounter Osteoporosis type: age-related Presence of current pathological fracture: with current pathological fracture Elevated liver enzymes R74.8 Lump on neck R22.1 Assessment & Plan Assessment & Plan (1) Wound of skin: Code(s): T14.8XXA - Other injury of unspecified body region, initial encounter Category: Medical Plan: Mechanical?trip?and?fall?with?1?cm?wound?at?left?lateral?calf This?does?not?appear?to?be?infected?at?this?time. She?can?use?bacitracin?or?triple?antibiotic.??Watch?for?S/S?infection (2) Osteoporosis: Code(s): M81.0 - Age-related osteoporosis without current pathological fracture Category: Medical Qualifiers: Encounter type: initial encounter Osteoporosis type: age-related Presence of current pathological fracture: with current pathological fracture Q ualified Code(s): M80.00XA - Age-related osteoporosis with current pathological fracture, unspecified site, initial encounter for fracture Plan: Patient?had?discussion?with?her?receiving team member?to?is?recommending?treatment. I?encouraged?this (3) Elevated liver enzymes: Code(s): R74.8 - Abnormal levels of other serum enzymes Category: Medical Plan: Patient?has?not?had?her?labs?drawn?since?last?visit?with?her?in?January. Labs?are?ordered?for?this?and?she?them?done?she?is?fasting (4) Lump on neck: Code(s): R22.1 - Localized swelling, mass and lump, neck Category: Medical Plan: She?has?ultrasound?scheduled?in?July?for?follow-up
[2024-07-06 11:44] VITALS: BP 126/70; PULSE 85; RESP 14; O2SAT 97
== END 2024-07-06 12:05 | disposition home or self-care (01) ==
PROVIDERS: PCP Family Medicine; Visit Provider Family Medicine
DX: T14.8XXA Other injury of unspecified body region, initial encounter (principal); M80.00XA Age-related osteoporosis with current pathological fracture, unspecified site, initial encounter for fracture; R74.8 Abnormal levels of other serum enzymes; R22.1 Localized swelling, mass and lump, neck

== ENCOUNTER → 2024-07-06 10:47 | Outpatient (BNVA) | payer OTHER, SELFPAY | PROVIDERS: PCP Family Medicine; Visit Provider Family Medicine | DX: R74.8 Abnormal levels of other serum enzymes (principal); R22.1 Localized swelling, mass and lump, neck | CPT/HCPCS: 99212 ==

== ENCOUNTER 2024-07-17 13:17 | Outpatient (REF) | payer OTHER, SELFPAY ==
--- OUTSIDE RECORDS SUMMARY | 2024-07-17 13:20 | XMS_ITS | Data Portability ---
Author Organization [place] - [facility] Address [address] [place] [address] Care Team Providers Care Tube Maker Name Role Phone [facility] Primary Care Provider [phone] [facility] FAX OTHER Assessment Encounter Date Assessment Date Assessment LastModified by Organization Details LastModified Time 09/03/2021 09/03/2021 Proper Personal Protective Equipment (PPE), including gloves, eye protection and masks were donned and doffed appropriately and all equipment cleaned using approved technique with germicidal disposable wipes prior to and after care of this patient according to [facility]'s infection prevention protocols. Overview/History : 51 yo female with 4-5d of dry cough and runny nose was seen by her PCP and placed on azithromycin. She also tested negative twice over the past week with home covid tests. The patient reports that she has had no improvement on azithromycin but read that it can cause blood clots and is requesting an EKG. Exam: pulm exam benign, extremities wnl, nontoxic appearing, NAD, AVSS. Ambulates and speaks in full sentences with ease. DDx considered, but not limited to: viral URI COVID Work up/Results: COVID PCR Collected EKG sinus without signs of ischemia or infarction Plan/Discussion: -despite 20+ mins of explaining the indications for EKG and current lack thereof given her concern for clots from azithromycin, the pt requests one despite -the results are sinus without ischemia/infarct -a PCR COVID is collected; despite lack of clinical picture and 2 negative tests at home, the pt still requests a PCR -20+ mins spent on discussion about viral syndrome vs bacterial infections and the propensity for symptoms such as cough even after an acute infection has resolved. -overall pt nontoxic in NAD most likely dx is viral URI -she will complete azithromycin and use her albuterol MDI as needed -I discuss tessalon for the cough which she is interested in -she will seek emergent re-eval for prod cough, fevers, chest pain, SOB, redness/swelling /pain in limbs -if cough keeps up the pt is encouraged to seek pulmonary consult through PCP [email or web address] Not available 09/03/2021 12:56:33 Plan of Treatment Reminders Order Date Submit Date Provider Last Modified By Organization Details Last Modified Time Details Appointments None recorded. Lab unlisted lab - covid-19 (novel coronavirus ) PCR 2021 [facility], [address] [place], [address], 13:16:40 Referral None recorded. Procedures None recorded. Surgeries None recorded. Imaging None recorded. Medication Orders benzonatate 200 mg capsule 2021 [facility] - [place], [place], [address] [place], [address], 13:01:10 Patient TargetsNo targets recorded. Patient Instructions Encounter Date Encounter Id Patient Instructions Last Modified By Organization Details Last Modified Time 09/03/2021 [id number] Inhaler Instructions Before use, you need to prime the inhaler: ? Take the cap off the mouthpiece and put the inhaler in the spacer ? Shake the inhaler for 5 seconds ? Hold the inhaler upright with 1 finger on the top of the canister, the thumb on the bottom of the inhaler, and your other hand holding the spacer ? Express a large breath ? Close lips around spacer ? Press down on the canister ? After you press down on the canister, breathe (or have your child breathe in) deeply and slowly and hold your breath for 10 seconds ? Take out of your mouth and slowly exhale ? If you were instructed to take 2 puffs of the inhaler, wait one minute before you give the second puff. Shake the inhaler again before the second puff. ? If the inhaler is a steroid medicine (also called a ? glucocorticoid? or ? corticosteroid? ), rinse out your mouth, gargle, and spit out the water Cleaning: If you use the inhaler every day, you need to clean it at least once a week. If you use less often, clean the inhaler when you see powder in or around the hole. To clean an inhaler: ? Remove the canister and cap from the mouthpiece. Do not wash the canister or put the canister under water. ? Run warm water through the mouthpiece for 30 to 60 seconds ? Shake the water off of the mouthpiece and let it air dry Clean the spacer every 1-2 weeks. First, remove the inhaler from the spacer. Wash the spacer with warm water and dishwashing soap, but do NOT rinse it. Then let it air dry. Leaving the spacer a little soapy after cleaning actually helps it work better. [email or web address] Not available 09/03/2021 11:39:16 Reason for Referral None Reported. Results Created Date Observation Date Name Description Value Unit Range Abnormal Flag Note LastModifiedBy Organization Detail LastModifiedTime 09/03/19 22 09/05/2021 COVID -19 (NOVE L CORON AVIRU S) PCR covid-19 PCR result (neg) NEGAT KIRSTEN 2019- novel Coron aviru s (2018 -nCoV ) not detec sandee by the qRT-P CR assay . If clini nu suspi cion for COVID -19 is high, marily nue to main ain preca ution s and consi felice repea t testi ng. Resul t repor sandee to the [facility]. This test has been autho rized by the FDA under an Emerg ency Use Autho rizat ion (EUA) for use by autho rized labor atori es. Test perfo rmed by Cl[facility] nu [facility] or[facility] at the [facility] of [facility] and Abhijeet gutierrez, [address] [place] [address] . CLIA ID: [id number] , CAP: [id number]. Medic al Direc tor: Ruma Ramirez, PhD FAC (NOTE ) The CRSP SARS- CoV-2 Real- time Rever se Trans cript ase (RT)- PCR Diagn ostic Assay is a real- time RT-PC R test inten ded for the quali tativ e detec tion of nucle ic acid from the SARS- CoV-2 in [facility] and oroph aryng eal swabs colle cted from indiv idual s who may have contr acted the virus . Testi ng is limit ed to the Clini nu Resea rc Seque ncing Platf orm at the [facility] t[facility] which is certi fied under the Clini nu Labor atory Impro vemen t Amend ments of 1987 (CLIA ), 42 U.S.C . ?263a , to perfo rm high compl exity tests . = Posit kirsten resul ts are indic ative of activ e infec tion with SARS- CoV-2 but do not rule out bacte rial infec tion or co-in fecti on with other virus es. The agent detec sandee may not be the defin ite cause of disea se. In addit ion, nucle ic acid detec tion can persi st follo wing clear ance of activ e viral repli catio n. Labor atori es withi n the [place] and its faiza pinky s are requi red to repor t all posit kirsten resul ts to the appro priat e publi c healt h autho ritie s. = Negat kirsten resul ts do not precl ude SARS- CoV-2 infec tion and shoul d not be used as the sole basis for patie nt treat ment or other patie nt manag ement decis ions. Negat kirsten resul ts must be combi zhane with clini nu obser vatio ns, patie nt histo ry, and epide miolo gical infor matio n. Not Available [facility] [address] [place], [address], 09/05/2021 13:16:40 Result Notes None recorded. Procedures Surgical History Date Name Laterality Status Provider Name and Address Organization Details Recorded Time 09/03/19 22 ECG Interpretation - completed MARGARET Bazzi [address] [place], [address], [place] - [facility] 09/03/2021 12:41:20 Imaging Results None recorded. Procedure Notes None recorded. Medical Equipment None Reported. Medications Name Sig Start Date Stop Date Status Note LastModified by Organization Details LastModified Time budesonide 32 mcg/actuatio n nasal spray instill 2 SPRAYS intranasall y ONCE DAILY active Not Available Not Available No t Available nystatin 100,000 unit/mL oral suspension USE 5mL 4 times/day; SWISH IN THE MOUTH AND retain FOR long possible (several minutes) BEFORE swallowing] active Not Available Not Available Not Available doxycycline hyclate 100 mg capsule TAKE 1 cap by MOUTH TWICE daily FOR 5 DAYS. hold calcium supplement while taking this active Not Available Not Available Not Available albuterol sulfate 2.5 mg/3 mL (0.083 %) solution for nebulization inhale 1 vial via nebulizer every 4 TO 6 hours NEEDED FOR SHORTNESS OF BREATH OR FOR WHEEZING active Not Available Not Available No t Available benzonatate 200 mg capsule Take 1 capsule 3 times a day by oral route for 4 days. 2021 active Not Available Not Available Not Avai lable senna 8.6 mg tablet TAKE 1 TABLET BY MOUTH AT BEDTIME NEEDED FOR constipatio n active Not Available Not Available No t Available cyanocobalam in (vit B-12) 1,000 mcg tablet TAKE 1 TABLET BY MOUTH ONCE DAILY active Not Available Not Available No t Available clotrimazole 1 % vaginal cream apply 1 applicatorf ul vaginally at BEDTIME for 7 days active Not Available Not Available N ot Available melatonin 3 mg tablet active Not Available Not Available No t Available omeprazole 40 mg capsule,janine yed release TAKE 1 CAPSULE BY MOUTH ONCE DAILY active Not Available Not Available No t Available pravastatin 80 mg tablet active Not Available Not Available Not Available lorazepam 0.5 mg tablet TAKE 1/2 -1 TABLET BY MOUTH TWICE A DAY NEEDED FOR ANXIETY active Not Available Not Available No t Available cephalexin 500 mg capsule TAKE 1 CAPSULE BY MOUTH TWICE DAILY FOR 5 DAYS active Not Available Not Available No t Available docusate sodium 100 mg capsule TAKE 1 CAPSULE BY MOUTH TWICE DAILY active Not Available Not Available No t Available gabapentin 300 mg capsule TAKE 1 CAPSULE BY MOUTH AT BEDTIME active Not Available Not Available No t Available montelukast 10 mg tablet active Not Available Not Available Not Available mupirocin 2 % topical ointment active Not Available Not Available Not Available azelastine 137 mcg (0.1 %) nasal spray INSTILL 1-2 Sprays by Each Nare route 2 times daily. Use in each nostril as directed active Not Available Not Available No t Available epinephrine 0.3 mg/0.3 mL injection, auto-injecto r inject 0.3 mg (0.3 mL) Into the muscle [id number] As Needed for anaphylaxis ; for 2 doses call 911 active Not Available Not Available No t Available polyethylene glycol 3350 17 gram/dose oral powder mix 17 g (1 capful) with 4 to 8 oz of a beverage and drink by mouth DAILY active Not Available Not Available No t Available estradiol 0.01% (0.1 mg/gram) vaginal cream insert 1 gram vaginally 3 TIME WEEKLY TO vaginal vault active Not Available Not Available No t Available albuterol sulfate HFA 90 mcg/actuatio n aerosol inhaler inhale 2 PUFFS BY MOUTH 4 TIMES DAILY NEEDED FOR WHEEZING active Not Available Not Available No t Available lamotrigine 100 mg tablet active Not Available Not Available Not Available loratadine 10 mg tablet Take 1 tablet by mouth daily. active Not Available Not Available No t Available azithromycin 500 mg tablet TAKE 1 TABLET BY MOUTH ONCE DAILY FOR 5 DAYS active Not Available Not Available No t Available [place] Saline 0.65 % nasal drops active Not Available Not Available Not Available nitrofuranto in monohydrate/ macrocrystal s 100 mg capsule active Not Available Not Available Not Available duloxetine 30 mg capsule,janine yed release active Not Available Not Available Not Available tizanidine 2 mg capsule Take 1 capsule by mouth at bedtime as needed for Muscle spasms. active Not Available Not Available No t Available mesalamine 1.2 gram tablet,delay ed release TAKE 2 TABLETS BY MOUTH ONCE DAILY active Not Available Not Available No t Available cholecalcife rol (vitamin D3) 50 mcg (2,000 unit) tablet TAKE 1 TABLET BY MOUTH ONCE DAILY active Not Available Not Available No t Available Vitamin D3 50 mcg (2,000 unit) capsule active Not Available Not Available Not Available melatonin 3 mg disintegrati ng tablet active Not Available Not Available No t Available Humira(CF) Pen 40 mg/0.4 mL subcutaneous kit active Not Available Not Available Not Available Wixela Inhub 500 mcg-50 mcg/dose powder for inhalation active Not Available Not Available N ot Available Vitals Date Recorded Heart rate Oxygen saturation Oxygen saturation in Arterial blood by Pulse oximetry Body temperature Respiratory rate Systolic blood pressure Diastolic blood pressure Provider Name and Address Organization Details Last Updated DateTime 2 90 /min 95 % 95 % 99.5 [degF] 18 /min 136 mm[Hg] 98 mm[Hg] Not Available [facility] 11:44:08 Social History None recorded. Functional Status None recorded. Mental Status None recorded. Family History Nothing Reported. Medical History No medical history recorded. Gynecological HistoryNo gynecological history recorded. Obstetrics History GPAL:G 0 P 0 0 0 0 Past Encounters Encounter ID Performer Location Encounter Start Date Encounter Closed Date Diagnosis/Indication Diagnosis SNOMED-CT Code Diagnosis ICD10 Code [id number] MARGARET Bazzi [facility] - [facility] [address] [place] [address] 09/03/2021 11:37:26 09/04/2021 08:55:24 Viral upper respiratory tract infection 762196547 J06.9 Exposure t o communicable disease 440711844 Z20.822 Health Concerns Section Related Observation LastModified by Organization Detai ls LastModified Time None Recorded Concern Status LastModified by Organization Details LastModified Time None Recorded Advance Directives Directive None Recorded Payers Encounter Date Sequence Insurance Name Policy Number Policy Mckeon Covered Member ID Mckeon Member ID Guarantor Name 09/03/2021 1 [facility] - DOS PRIOR TO 2022 - DUAL ELIGIBLE (MEDICARE REPLACEMENT/ADV ANTAGE - HMO) Josselin Harrington [id number] Josselin Harrington Notes Date Note Type Note Provider Name and Address Organization Details Recorded Time 09/03/2021 text/html -51 yo female ne w to and provider-pt rises easily from chair and walks us to other room to show us her pets with no appreciable SOB-pt reports 4-5 days of cough, runny nose-she reached out to PCP a few days back-she was started on azithromycin-she doesn't believe that it is helping-she had a home COVID test 3d ago - it was negative x2-she wants a COVID test and wants an EKG-she has not chest pain or SOB but she read that the azithromycin can cause clots and she's worried shes having a heart attack-no smoking, no hx of [place]/CVA, reports cholesterol is fine , and denies any family hx of CAD. MARGARET Bazzi [address], [place], [address], [place] - [facility] 09/03/2021 12:56:49 OBGyn Episode No OBEpisode recorded.
[2024-07-17 17:50] LABS: Alanine Aminotransferase 43 U/L (0-31); Albumin Level 4.3 g/dL (3.5-5.0); Alkaline Phosphatase 81 U/L (39-117); Anion Gap 11 (12-20); Aspartate Amino Transferase 47 U/L (5-31); Bilirubin Total 0.5 mg/dL (0.0-1.0); Blood Urea Nitrogen 6 mg/dL (9-16); Calcium 9.1 mg/dL (8.4-10.2); Carbon Dioxide 27 mmol/L (22-29); Chloride 107 mmol/L (96-108); Estimated Glomerular Filt Rate > 60; Glucose Fasting 107 mg/dL (60-99); Sodium 141 mmol/L (135-145); Total Protein 7.2 g/dL (6.5-8.0)
== END 2024-07-17 13:18 | disposition home or self-care (01) ==
LOC: HO.WFDLDS 13:17
PROVIDERS: Visit Provider Family Medicine
DX: Z00.00 Encounter for general adult medical examination without abnormal findings (principal); R22.1 Localized swelling, mass and lump, neck
CPT/HCPCS: 36415; 80053

== ENCOUNTER 2024-07-24 10:05 | Outpatient (REF) | payer OTHER, SELFPAY ==
--- NOTE | ~2024-07-24 | MR_ITS ---
EXAMINATION: MR KNEE WITHOUT CONTRAS, RIGHT CLINICAL INFORMATION: Other tear of medial meniscus, current injury, right knee, initial encounter S83.241A. Difficulty in walking, no fall or injury. Increase pain in last month or two. COMPARISON: XR right knee 06/04/2024. TECHNIQUE: MRI of the knee without contrast was performed using routine sequences on a high-field scanner. FINDINGS: MENISCI: Medial Meniscus: Intact. Lateral Meniscus: Intact. LIGAMENTS: Cruciate: Intact. Collateral: Intact. EXTENSOR MECHANISM: Intact. ARTICULAR CARTILAGE/BONE: Patellofemoral Compartment: There is nonuniform up to high-grade cartilage loss involving a broad area of the lateral facet of the patella with associated subchondral cystic change. Additional scattered cartilage heterogeneity and areas of at least partial-thickness cartilage loss in the medial facet. Nonuniform up to high-grade cartilage loss noted throughout the trochlea cartilage. Subchondral cystic change present. Findings indicative of moderate patellofemoral arthrosis. Medial Compartment: Marginal osteophytes. Scattered up to high-grade cartilage heterogeneity in the medial weightbearing portion of the femoral articular surface. Tibial cartilage is normal. Overall mild arthrosis. Lateral Compartment: Minimal surface irregularity of the weightbearing femoral articular cartilage. Focal cartilage heterogeneity of the central weightbearing tibial articular surface. Overall mild arthrosis. Proximal tibiofibular joint synovial recess versus ganglion cyst abutting the anterior aspect of the proximal tibiofibular joint. This fluid collection measures up to 2 cm transverse, 1.2 cm craniocaudal, and 0.5 cm AP. JOINT FLUID AND BURSAE: There is a mild joint effusion. There is a lobulated cystic-appearing collection in the posterior aspect of the joint posterior to the posterior cruciate ligament compatible with a ganglion cyst or synovial recess. This also extends through a small defect in the posterior capsule. This collection measures 2.8 cm craniocaudal, 0.9 cm AP, and 1.7 cm transverse. MR/MR knee RT wo con IMPRESSION: 1. Menisci intact. 2. Tricompartmental osteoarthritis with degenerative changes most prominent in the patellofemoral compartment being moderate. 3. Ganglion cyst versus synovial recess in the posterior aspect of the joint. This extends through a small capsular defect posteriorly. 4. Synovial recess versus ganglion cyst abutting the anterior aspect of the proximal tibiofibular joint. Electronically signed by: Derrick Nick MD 07/26/2024 08:43 AM [facility]
--- OUTSIDE RECORDS SUMMARY | 2024-07-24 10:09 | XMS_ITS | Data Portability ---
Author Organization [place] - [facility] Address [address] [place] [address] Care Team Providers Care Residential Sales Representative Name Role Phone [facility] Primary Care Provider [phone] [facility] [place] FAX OTHER Assessment Encounter Date Assessment Date Assessment LastModified by Organization Details LastModified Time 09/03/2021 09/03/2021 Proper Personal Protective Equipment (PPE), including gloves, eye protection and masks were donned and doffed appropriately and all equipment cleaned using approved technique with germicidal disposable wipes prior to and after care of this patient according to [facility]'s infection prevention protocols. Overview/History : 51 [...] encouraged to seek pulmonary consult through PCP [email or web address] Not available 09/03/2021 12:56:33 Plan of Treatment Reminders Order Date Submit Date Provider Last Modified By Organization Details Last Modified Time Details Appointments None recorded. Lab unlisted lab - covid-19 (novel coronavirus ) PCR 2021 [facility], [address] [place], [address], 13:16:40 Referral None recorded. Procedures None recorded. Surgeries None recorded. Imaging None recorded. Medication Orders benzonatate 200 mg capsule 2021 [facility] - [place], [place], [address] [place], [address], 13:01:10 Patient TargetsNo targets recorded. Patient Instructions Encounter Date Encounter Id Patient Instructions Last Modified By Organization Details Last Modified Time 09/03/2021 [id number] Inhaler Instructions Before use, you need to [...] after cleaning actually helps it work better. [email or web address] Not available 09/03/2021 11:39:16 Reason for Referral [...] ng. Resul t repor sandee to the [facility]. This test has been autho rized by the FDA under an Emerg ency Use Autho rizat ion (EUA) for use by autho rized labor atori es. Test perfo rmed by [facility] or[facility] at the [facility] and Abhijeet gutierrez, [address] [place] [address] . CLIA ID: [id number] , CAP: [id number]. Medic al Direc tor: Ruma Ramierz, PhD FAC (NOTE ) The CRSP SARS- CoV-2 Real- time Rever se Trans cript ase (RT)- PCR Diagn ostic Assay is a real- time RT-PC R test inten ded for the quali tativ e detec tion of nucle ic acid from the SARS- CoV-2 in [facility] and oroph aryng eal swabs colle cted from indiv idual s who may have contr acted the virus . Testi ng is limit ed to the Clini nu Resea rc Seque ncing Platf orm at the [facility] t[facility] which is certi [...] Not Available [facility] [address] [place], [address], 09/05/2021 13:16:40 Result Notes None recorded. Procedures Surgical History Date Name Laterality Status Provider Name and Address Organization Details Recorded Time 09/03/19 22 ECG Interpretation - completed MARGARET Bazzi [address] [place], [address], [place] [facility] 09/03/2021 12:41:20 Imaging Results [...] 0.3 mg (0.3 mL) Into the muscle [id number] As Needed for anaphylaxis ; for 2 [...] Not Available Not Available No t Available [place] Saline 0.65 % nasal drops active Not [...] Diagnosis/Indication Diagnosis SNOMED-CT Code Diagnosis ICD10 Code [id number] MARGARET Bazzi [facility] - HOME [address] [place] [address] 09/03/2021 11:37:26 09/04/2021 08:55:24 Viral upper respiratory tract infection 495098945 J06.9 Exposure t o communicable disease 689993709 Z20.822 Health Concerns Section Related Observation LastModified by Organization Detai ls LastModified Time None Recorded Concern Status LastModified by Organization Details LastModified Time None Recorded Advance Directives Directive None Recorded Payers Encounter Date Sequence Insurance Name Policy Number Policy Mckeon Covered Member ID Mckeon Member ID Guarantor Name 09/03/2021 1 [facility] - DOS PRIOR TO 2022 - DUAL ELIGIBLE (MEDICARE REPLACEMENT/ADV ANTAGE - HMO) Josselin Harrington [id number] Josselin Harrington Notes Date Note Type Note [...] a heart attack-no smoking, no hx of [place]/CVA, reports cholesterol is fine , and denies any family hx of CAD. MARGARET Bazzi [address], [place], [address], [place] [facility] 09/03/2021 12:56:49 OBGyn Episode No OBEpisode recorded.
--- OUTSIDE RECORDS SUMMARY | 2024-07-24 10:09 | XMS_ITS | Continuity of Care Document ---
Author Organization [facility] Address [address] [address]- Care Team Providers Care Stand In Name Role Phone Ed PICHARDO, Layton Mayorga Primary Care Physician [phone] [place] [facility] [place]24 [place] 07/22/24 [facility] [address] [place] [id number] Encounter Type: Triage Allergies, Adverse Reactions, Alerts Substance Criticality Severity Reaction Reaction Severity Status ibuprofen Active penicillin Active Bee Stings Active Immunizations Given and Recorded Vaccine Date Status Refusal Reason tetanus/diphtheria/pertussis, acel(Tdap) 04/15/23 Given Medications acetaminophen 325 mg oral tablet 650 mg, By Mouth, Every 4 hours, not to exceed 4000 mg/day, Refills 0, Maintenance, 08/30/17 1:51:08PM EST Start Date: 08/30/17 Stop Date: 09/04/17 Status: Ordered Repeat number: 1 albuterol 0.083% inhalation solution 3 mL = 2.5 mg, Inhalation, Every 6 hours, PRN for wheezing, dx: j45.909, # 360 mL, 11 Refills, Maintenance, 07/13/24 10:03:00 AM EST, Inhalation Solution, [facility] - [place], [place], Partial fill upon patient request if the prescription is for a schedule II opioid drug., 147.5, cm, 07/13/24 9:55:00 EST, Height, 82, kg, 04/02/24 15:46:00 EDT, Dry Weight Start Date: 07/13/24 Stop Date: 07/08/25 Status: Ordered Quantity: 360.0 Unit: mL Repeat number: 12 albuterol CFC free 90 mcg/inh inhalation aerosol 2, puffs, Inhalation, 4 times a day, PRN, # 18 Gm, Refills 11, Tot. Refills 11, Maintenance, 07/13/24 10:04:00 AM EST, Aerosol, Route to Pharmacy Electronically, [id number], [facility] [address] [place] [address], 147.5, cm, 07/13/24 9:55:00 EST, Height, 82, kg, 04/02/24 15:46:00 EDT, Dry Weight Start Date: 07/13/24 Stop Date: 07/08/25 Status: Ordered Quantity: 18.0 Unit: g Repeat number: 12 azelastine nasal 0.15% spray 1 sprays = 205.5 mcg, Nares, Both, 2 times a day, PRN for allergy symptoms, # 30 mL, 11 Refills, Maintenance, 08/29/22 11:51:00 AM EST, [place], [facility] [address] [place] [address], Partial fill upon patient request if the prescription is for a schedule II opioid drug., 1 sprays Nares, Both 2 times a day,x30 days,PRN:for allergy symptoms, 149, cm, 08/29/22 9:36:00 EST, Height, 82, kg, 04/01/22 16:26:00 EDT, Dry Weight Start Date: 08/29/22 Stop Date: 08/24/23 Status: Ordered Quantity: 30.0 Unit: mL Repeat number: 12 Azo cranberry 0 Refills, Maintenance, 09/14/22 11:59:00 PM EST, Partial fill upon patient request if the prescription is for a schedule II opioid drug. Start Date: 09/14/22 Status: Ordered Repeat number: 1 Budesonide Refills 0, Maintenance, 09/15/22 12:00:00 AM EST Start Date: 09/15/22 Status: Ordered Repeat number: 1 Co-Q10 By Mouth, 0 Refills, Maintenance, 01/25/21 4:54:00 PM EDT, Partial fill upon patient request if the prescription is for a schedule II opioid drug. Start Date: 01/25/21 Status: Ordered Repeat number: 1 docusate sodium 100 mg oral tablet 1 tablet = 100 mg, By Mouth, 2 times a day, PRN for constipation, # 60 tablet, 0 Refills, Maintenance, 12/19/21 1:51:00 AM EDT, Tablet, Partial fill upon patient request if the prescription is for a schedule II opioid drug. Start Date: 12/19/21 Status: Ordered Quantity: 60.0 Unit: tablet Repeat number: 1 Fish Oil By Mouth, 0 Refills, Maintenance, 11/13/18 1:52:14 AM EDT Start Date: 11/13/18 Status: Ordered Repeat number: 1 fluticasone-salmeterol 500 mcg-50 mcg inhalation powder See Instructions, inhale 1 PUFF BY MOUTH TWICE DAILY, # 60 Unknown, Refills 11, Tot. Refills 11, Maintenance, 06/22/24 12:38:00 PM EST, Instructions Replace Required Details, Route to Pharmacy Electronically, [id number], [facility] [address] [place] [address], 147.5, cm, 04/02/24 15:46:00 EDT, Height, 82, kg, 04/02/24 15:46:00 EDT, Dry Weight Start Date: 06/22/24 Status: Ordered Quantity: 60.0 Unit: Unknown Repeat number: 12 Humira Pen 40 mg/0.8 mL subcutaneous solution Subcutaneous Infusion, Once, 0 Refills, Maintenance, 08/07/19 1:56:00 PM EST Start Date: 08/07/19 Status: Ordered Repeat number: 1 lamotrigine 100 mg oral tablet 100 mg, 1, tablet, By Mouth, Daily, Refills 0, Maintenance, 08/26/17 8:59:41 PM EST Start Date: 08/26/17 Status: Ordered Repeat number: 1 Lialda 1.2 g oral delayed release tablet 2 tablet = 2.4 Gm, By Mouth, Daily, # 112 tablet, 0 Refills, Maintenance, 01/15/19 4:26:23 AM EDT, EC Tablet Start Date: 01/15/19 Status: Ordered Quantity: 112.0 Unit: tablet Repeat number: 1 loratadine 10 mg oral tablet 1, tablet, By Mouth, Daily, # 90 tablet, Refills 11, Maintenance, 06/22/24 12:14:00 PM EST, Route to Pharmacy Electronically, [facility], 147.5, cm, 04/02/24 15:46:00 EDT, Height, 82, kg, 04/02/24 15:46:00 EDT, Dry Weight Start Date: 06/22/24 Status: Ordered Quantity: 90.0 Unit: tablet Repeat number: 1 LORazepam 0.5 mg oral tablet 0.5 tablet = 0.25 mg, By Mouth, Every 8 hours, PRN as needed for anxiety, 0 Refills, Maintenance, 08/26/17 4:50:31 PM EST, Tablet Start Date: 08/26/17 Status: Ordered Repeat number: 1 omeprazole 40 mg oral enteric coated capsule 1 capsule = 40 mg, By Mouth, Daily, # 90 capsule, 0 Refills, Maintenance, 07/01/19 8:43:06 PM EST, EC Capsule Start Date: 07/01/19 Status: Ordered Quantity: 90.0 Unit: capsule Repeat number: 1 rosuvastatin 40 mg oral tablet TAKE 1 TABLET BY MOUTH ONCE DAILY Start Date: 03/03/23 Status: Ordered Repeat number: 1 Tums Ultra PRN as needed for indigestion, 0 Refills, Maintenance, 09/27/15 8:57:30 AM EST Start Date: 09/27/15 Status: Ordered Repeat number: 1 Vitamin B12 = 1,000 mg, 0 Refills, Maintenance, 07/27/19 8:29:00 PM EST Start Date: 07/27/19 Status: Ordered Repeat number: 1 Vitamin C By Mouth, Daily, 0 Refills, Maintenance, 11/13/18 1:53:50 AM EDT Start Date: 11/13/18 Status: Ordered Repeat number: 1 Vitamin D3 By Mouth, 0 Refills, Maintenance, 11/13/18 1:52:48 AM EDT Start Date: 11/13/18 Status: Ordered Repeat number: 1 Problem List Condition Confirmation Course Effective Dates Status H ealth Status Informant Ankylosing spondylitis Confirmed Active Chronic rhinitis Confirmed Active Crohn disease Confirmed Active Environmental allergies Confirmed Active L2 vertebral fracture Confirmed Active Chronic GERD Confirmed Active History of PCOS Confirmed Active Menopause Confirmed 2018 Active Moderate persistent asthma Confirmed Active Obesity Confirmed Active 0 Confirmed Active Severe obesity (BMI 35.0-39.9) with comorbidity Confirmed Active Thyroid nodule Confirmed Active Social History Social History Type Response Smoking Status Never (less than 100 in lifetime) entered on: 03/06/20 Sex Sex Representation Female (finding) Patient Care team information Care Team Personnel Name: Layton Ward MD Position: [facility] Outreach Member Role: PCP Address: [address] [place] [address] Telecom: Name: Beba RNLelia Position: S RN Member Role: Primary Care Nurse Name: Ary Hart RN Position: [facility] SN RN Member Role: Primary Care Nurse Name: Moisés Jauregui RN Position: S RN Member Role: Primary Care Nurse Name: Debo Chowdary RN Position: S RN Member Role: Primary Care Nurse Name: Judy Plummer RN Position: [facility] RN Member Role: Primary Care Nurse Care Team Related Persons Name: MARIEL FOURNIER Name: RUBI MACHUCA Insurance Providers Guarantor name: JAIME GONZALO Health Plan Information #: 1 Payer: [facility] Member Number: NA Policy Number: NA Group Number: NA
== END 2024-07-24 10:06 | disposition home or self-care (01) ==
LOC: HO.MRI 10:05
PROVIDERS: PCP Family Medicine; Visit Provider Orthopaedic Surgery
DX: S83.241A Other tear of medial meniscus, current injury, right knee, initial encounter (principal)
CPT/HCPCS: 73721

== ENCOUNTER 2024-08-12 12:02 | Outpatient (AMB) | payer OTHER, SELFPAY ==
--- OUTSIDE RECORDS SUMMARY | 2024-08-12 12:05 | XMS_ITS | Data Portability ---
Author Organization [place] [facility] Address [address] [place] [address] Care Team Providers Care Boom Tender Name Role Phone [facility] Primary Care Provider [facility] [place] [facility] OTHER Assessment Encounter Date Assessment Date Assessment LastModified by Organization Details LastModified Time 09/03/2021 09/03/2021 Proper Personal Protective Equipment (PPE), including gloves, eye protection and masks were donned and doffed appropriately and all equipment cleaned using approved technique with germicidal disposable wipes prior to and after care of this patient according to [facility]'s infection prevention protocols. Overview/History : 51 [...] encouraged to seek pulmonary consult through PCP [email or web address] Not available 09/03/2021 12:56:33 Plan of Treatment Reminders Order Date Submit Date Provider Last Modified By Organization Details Last Modified Time Details Appointments None recorded. Lab unlisted lab - covid-19 (novel coronavirus ) PCR 2021 [facility], [address] [place], [address], 13:16:40 Referral None recorded. Procedures None recorded. Surgeries None recorded. Imaging None recorded. Medication Orders benzonatate 200 mg capsule 2021 [facility] - [place], [place], [address] [place], [address], 13:01:10 Patient TargetsNo targets recorded. Patient Instructions Encounter Date Encounter Id Patient Instructions Last Modified By Organization Details Last Modified Time 09/03/2021 [id number] Inhaler Instructions Before use, you need to [...] after cleaning actually helps it work better. [email or web address] Not available 09/03/2021 11:39:16 Reason for Referral [...] ng. Resul t repor sandee to the [facility]. This test has been autho rized by the FDA under an Emerg ency Use Autho rizat ion (EUA) for use by autho rized labor atori es. Test perfo rmed by [facility] at the [facility] of [facility] and Abhijeet gutierrez, [address] [place] [address] . CLIA ID: [id number] , CAP: [id number]. Medic al Direc tor: Ruma Ramirez, PhD FAC (NOTE ) The [facility]SP SARS- CoV-2 Real- time Rever se Trans cript ase (RT)- PCR Diagn ostic Assay is a real- time RT-PC R test inten ded for the quali tativ e detec tion of nucle ic acid from the SARS- CoV-2 in [facility] and oroph aryng eal swabs colle cted from indiv idual s who may have contr acted the virus . Testi ng is limit ed to the [facility] at the [facility] Inst[facility] tute which is certi fied under [...] Not Available [facility] [address] [place], [address], 09/05/2021 13:16:40 Result Notes None recorded. Procedures Surgical History Date Name Laterality Status Provider Name and Address Organization Details Recorded Time 09/03/19 22 ECG Interpretation - completed MARGARET Bazzi [address] [place], [address], [place] [facility] 09/03/2021 12:41:20 Imaging Results [...] 0.3 mg (0.3 mL) Into the muscle [id number] As Needed for anaphylaxis ; for 2 [...] Not Available Not Available No t Available [place] Saline 0.65 % nasal drops active Not [...] Diagnosis/Indication Diagnosis SNOMED-CT Code Diagnosis ICD10 Code Diagnosis Note [id number] MARGARET Bazzi [facility] [address] [place] [address] 09/03/2021 11:37:26 09/04/2021 08:55:24 Viral upper respiratory tract infection [id number] J06.9 Exposure t o communicable disease [id number] Z20.822 Health Concerns Section Related Observation LastModified by Organization Detai ls LastModified Time None Recorded Concern Status LastModified by Organization Details LastModified Time None Recorded Advance Directives Directive None Recorded Payers Encounter Date Sequence Insurance Name Policy Number Policy Mckeon Covered Member ID Mckeon Member ID Guarantor Name 09/03/2021 1 [facility] [employer] - DOS PRIOR TO 2022 - DUAL ELIGIBLE (MEDICARE REPLACEMENT/ADV ANTAGE - HMO) Josselin Harrington [id number] Josselin Harrington Notes Date Note Type Note [...] a heart attack-no smoking, no hx of [place]/CVA, reports cholesterol is fine , and denies any family hx of CAD. MARGARET Bazzi [address], [place], [address], [place] - [facility] 09/03/2021 12:56:49 OBGyn Episode No OBEpisode recorded.
--- NOTE | 2024-08-12 12:09 | A.OFFPC_ITS ---
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: No Allergies Penicillins [PENICILLINS] Allergy (Severe, Verified 08/12/24 12:19) ANAPHYLAXIS simvastatin Allergy (Mild, Verified 08/12/24 12:19) weird feeling ibuprofen Adverse Reaction (Intermediate, Verified 08/12/24 12:19) stomach upset, irritates Chrohn's Medication List - Last Reconciled 08/12/24 by SUKHDEV Cristobal- adalimumab (Humira(CF) Pen) 40 mg subcut Q2W albuterol sulfate 90 mcg/actuation 2 puffs inhalation QID PRN albuterol sulfate 2.5 mg (3 mL) inhalation Q4-6H PRN 30 days alendronate 70 mg PO QWEEK 28 days azelastine intranasal budesonide 32 mcg/actuation 1 spray intranasal DAILY cholecalciferol (vitamin D3) 50 mcg PO DAILY 3 months clotrimazole 1% 1 appful vaginal BEDTIME PRN coenzyme Q10 (Co Q-10) 50 mg PO DAILY cranberry extract 250 mg PO DAILY cyanocobalamin (vitamin B-12) 1,000 mcg PO DAILY 30 days diclofenac sodium 1% (Arthritis Pain (diclofenac)) 4 grams topical QID 30 days docusate sodium 200 mg (2 x 100 mg) PO BID 3 months epinephrine (EpiPen 2-Isma) 0.3 mg (0.3 mL) IM Q10M PRN fluticasone propion-salmeterol 500-50 mcg/dose inhalation lamotrigine (Lamictal) 100 mg PO DAILY loratadine 10 mg PO DAILY 90 days lorazepam 0.5 mg PO BID PRN mesalamine 1,200 mg (3 x 400 mg) PO BID montelukast 10 mg PO DAILY nystatin 5 mL PO DAILY 10 days nystatin-triamcinolone 100,000-0.1 unit/g-% 1 appl topical TID olopatadine 0.2% 1 drp ophthalmic (eye) DAILY PRN 30 days omeprazole 20 mg PO DAILY rosuvastatin 40 mg PO DAILY tizanidine 2 mg PO TID PRN 30 days Tobacco use date assessed: 01/24/24 Dental Screening Dental Screen Date: 11/05/23 HPI HPI Comments History of Present Illness Details 54-year-old female with Crohn's disease and ankylosing spondylitis here today for hospital discharge follow up. She was evaluated at [facility] emergency room 07/31/24 for complaints of dysuria and right flank pain. The workup from this was reviewed. her CBC was normal. Her urinalysis was positive, culture grew E coli sensitive to cefepime. She had a CT of the abdomen which showed no hydronephrosis, stones or suspicious masses. Mild diffuse urothelial enhancement at the center right collecting system asymmetrically, subcentimeter hypodensity exophytically at the left kidney is too small to characterize but may represent a cyst, uroepithelial stranding of the distal right ureter with hyperemia, bladder mucosal hyperemia, nondistended, minimal adjacent stranding, hepatic steatosis otherwise within normal limits. She was discharged home with Pyridium and a prescription for antibiotics Cefipime. Completed course yesterday. Urinary sx are better. Is not active w/ Uro. Has chronic and recurrent UTIs. Takes cranberry tablets daily. She would like repeat labs done to evaluate her kidneys. The labs were reviewed with her from the emergency room which showed stable renal function. However she admits severe anxiety related to her health and she would like to repeat the labs again today. She needs her flu shot Exam: Awake alert NAD RRR LS CTAB Abd soft, nontender, no CVAT Anxious Plan The plan today will be to continue taking the prophylactic treatments she is on and refer to Uro for further mgmt Repeat UA done in office today normal. Results as below. Labs per her request pending on as this time. Flu shot administered today Return to the office in 4 months for routine follow up with her primary care provider, Dr Castelan, sooner as needed This note is constructed using voice recognition software. While every effort has been made to ensure accuracy in textile engraver, still errors may have been included Sometimes, these errors may affect the content or meaning of the given sentence . Total time spent caring for the patient today was 40 minutes. This includes time spent before the visit reviewing the chart, time spent during the visit, and time spent after the visit on documentation [facility] Medical History Tubular adenoma Chronic idiopathic constipation Crohn disease Unspecified asthma, uncomplicated Dysuria Surgical History Hx of colonoscopy History of esophagogastroduodenoscopy (EGD) No pertinent past surgical history Family History Father Suicide Mother Hypertension Diabetes Paternal Grandmother Stroke Brother In good health Sister In good health Social History Housing: Other Housing Other:: mobile home Alcohol intake: current Alcohol intake frequency: does not drink Patient Tobacco Use Status: Never used Tobacco e-Cigarette/Vaping Use: Never Used Second Hand Smoke Exposure: Yes service: No Current occupational status: disabled Current occupational exposures/hazards: No Cognitive needs: No Hearing needs: No Vision needs: No Questionnaire PHQ-9 Over the last 2 weeks, how often have you been bothered by any of the following problems? 40042 - PHQ-9 Billing: Patient declined-do not bill Source: Developed by Drs. Bernardino Ahumada, Peri Valencia, Gordy Victoria and colleagues, with an educational hakeem from [employer]. Thrive Questionnaire Date Thrive assessed: 08/12/24 I am a: Patient What is your living situation today?: I choose not to answer this question Within the past 12 months, did the food you bought not last and you didn't have the money to get more?: I choose not to answer this question Within the past 12 months, did you worry whether your food would run out before you got money to buy more?: I choose not to answer this question Do you have trouble paying for medicines?: I choose not to answer this question Do you have trouble getting transportation to medical appointments?: I choose not to answer this question Do you have trouble paying your heating and electricity bill?: I choose not to answer this question Do you have trouble taking care of your child, family member or friend?: I choose not to answer this question Do you have trouble with day-to-day activities such as bathing, preparing meals, shopping, managing finances, etc.?: I choose not to answer this question Are you currently unemployed and looking for a job?: I choose not to answer this question Are you interested in more education?: I choose not to answer this question Please select the resources that you would like help with: None Currently or been in a relationship where the following occur: No concerns reported THRIVE Score: 0 AUDIT C Alcohol Use Questionnaire (AUDIT-C) 1. How often do you have a drink containing alcohol?: Never Total Score: 0 ZENY-7 AMB Questionnaire ZENY-7 Date ZENY - 7 assessed: 08/12/24 Feeling nervous, anxious, or on edge: 3 = Nearly every day Not being able to stop or control worryin = Nearly every day Worrying too much about different things: 3 = Nearly every day Trouble relaxin = Nearly every day Being so restless that it is hard to sit still: 3 = Nearly every day Becoming easily annoyed or irritable: 3 = Nearly every day Feeling afraid as if something awful might happen: 3 = Nearly every day Total ZENY-7 score (0-4 normal; 5-9 mild; 10-14 moderate; 15-21 severe): 21 Source: Developed by Drs. Bernardino Ahumada, Peri Valencia, Gordy Victoria and colleagues, with an educational hakeem from [employer]. ZENY-7 Assessment Billing ZENY-7 Assessment Tool: ZENY-7 Assessment 83965 Physical exam (Primary Care) Vital Signs: Last Vital Signs Pulse 97 08/12/24 12:19 Resp 13 08/12/24 12:19 BP 132/72 08/12/24 12:19 Pulse Ox 97 08/12/24 12:19 Oxygen Delivery Method Room Air 08/12/24 12:19 BMI result Body Mass Index 38.7 Tobacco/Smoking Status: Tobacco use Status Tobacco use date assessed 01/24/24 08/12/24 12:10 Patient Tobacco Use Status Never used Tobacco 08/12/24 12:10 e-Cigarette/Vaping Use Never Used 08/12/24 12:10 Thrive Assessment: Date of Thrive Assessment Date Thrive assessed 08/12/24 08/12/24 12:10 Currently or been in a relationship where the following occur: No concerns reported Office Procedures Flu Questionnaire Does the patient have a severe egg allergy?: No Does the patient have severe life threatening allergies?: No Does the patient have a fever or illness today?: No Has the patient ever had Guillain-[place] Syndrome?: No Has the patient ever had any past reaction to a flu shot?: No Results AMB Urinalysis, Automated UA Leukoctes 0 Krystin/uL Last Edit by Nan Parker MA on 08/12/24 13:10 UA Nitrite Negative Last Edit by Nan Parker MA on 08/12/24 13:10 UA Urobilinogen 0 mg/dL Last Edit by Nan Parker MA on 08/12/24 13:10 UA Protein 0 mg/dL Last Edit by Nan Parker MA on 08/12/24 13:10 UA pH 6.5 Last Edit by Nan Parker MA on 08/12/24 13:10 UA Blood 0 David/uL Last Edit by Nan Parker MA on 08/12/24 13:10 UA Specific [place] 1.010 Last Edit by Nan Parker MA on 08/12/24 13:1 0 UA Ketone Negative Last Edit by Nan Parker MA on 08/12/24 13:10 UA Bilirubin 0 mg/dL Last Edit by Nan Parker MA on 08/12/24 13:10 UA Glucose 0 mg/dL Last Edit by Nan Parker MA on 08/12/24 13:10 Immunizations Fluarix Triv [id number] (PF) 45 mcg (15 mcg x 3)/0.5 mL IM syringe Performing Provider: CHIO Cristobal Per[place] [facility] Administered by: Lamar Hernandez RN on 08/12/24 13:43 Dose Route Admin Location Dispensed Lot Number Expiration Date [facility] [employer] 0.5 mL IM Right Deltoid 0.5 mL [id number] 02/01/25 [id number] [employer] VIS Given Date VIS Provided VIS Publication Date 08/12/24 Single Vaccine 21 Eligibility Eligibility Date Funding Source Not [facility] Eligible 08/12/24 Private Results Reviewed Results Reviewed: Laboratory Last Values Urine pH (Auto) 6.5 08/12/24 13:09 Specific [place] (Auto) 1.010 08/12/24 13:09 Urine Protein (Auto) 0 mg/dL 08/12/24 13:09 Glucose (UA)(Auto) 0 mg/dL 08/12/24 13:09 Urine Ketones (Auto) Negative 08/12/24 13:09 Urine Blood (Auto) 0 David/uL 08/12/24 13:09 Urine Nitrite (Auto) Negative 08/12/24 13:09 Urine Bilirubin (Auto) 0 mg/dL 08/12/24 13:09 Urine Urobilinogen (Auto) 0 mg/dL 08/12/24 13:09 Leukocyte Esterase (Auto) 0 Krystin/uL 08/12/24 13:09 Coding Level of Care Code Est Pt Level 5 (99589) Complex EM visit Add On G2211 Diagnoses Hospital discharge follow-up Z09 Acute cystitis with hematuria N30.01 Urinary tract infection type: acute cystitis Hematuria presence: with hematuria BMI 38.0-38.9,adult Z68.38 Class 2 severe obesity due to excess calories with serious comorbidity and body mass index (BMI) of 38.0 to 38.9 in adult E66.812; E66.01; Z68.38 Obesity type: due to excess calories Serious obesity comorbidity presence: with serious comorbidity Recurrent UTI N39.0 Influenza vaccination administered at current visit Z23 Additional Codes ZENY-7 Assessment Billing - ZENY-7 Assessment Tool: ZENY-7 Assessment 16308 ([id number]) Assessment & Plan Assessment & Plan (1) Hospital discharge follow-up: Code(s): Z09 - Encounter for follow-up examination after completed treatment for c onditions other than malignant neoplasm Category: Medical (2) Urinary tract infection: Code(s): N39.0 - Urinary tract infection, site not specified Category: Medical Qualifiers: Urinary tract infection type: acute cystitis Hematuria presence: with hematuria Qualified Code(s): N30.01 - Acute cystitis with hematuria (3) BMI 38.0-38.9,adult: Code(s): Z68.38 - Body mass index [BMI] 38.0-38.9, adult Category: Medical (4) Class 2 obesity with body mass index (BMI) of 38.0 to 38.9 in adult: Comment: HLD Code(s): E66.812 - Obesity, class 2; Z68.38 - Body mass index [BMI] 38.0-38.9, adult Category: Medical Qualifiers: Obesity type: due to excess calories Serious obesity comorbidity presence: with serious comorbidity Qualified Code(s): E66.812 - Obesity, class 2; E66.01 - Morbid (severe) obesity due to excess calories; Z68.38 - Body mass index [BMI] 38.0-38.9, adult (5) Recurrent UTI: Code(s): N39.0 - Urinary tract infection, site not specified Category: Medical (6) Influenza vaccination administered at current visit: Code(s): Z23 - Encounter for immunization Plan . Orders: Orders AMB Urinalysis Automated Today Z13.9 - Encounter for screening, unspecified Comprehensive Met. Panel Today N39.0 - Urinary tract infection, site not specified Influenza [id number] Immunization Today Z23 - Encounter for immunization Referrals Urology Referral N39.0 - Urinary tract infection, site not specified Patient Instructions: What is the urinary tract? This is the group of organs in the body that handle urine (figure 1). It includes the: ?Kidneys ? These are 2 lockett-shaped organs that filter the blood to make urine. ?Bladder ? This is a balloon-shaped organ that stores urine. ?Ureters ? These are 2 tubes that carry urine from the kidneys to the bladder. ?Urethra ? This is the tube that carries urine from the bladder to the outside of the body. What are urinary tract infections? Urinary tract infections, or UTIs, are infections that affect either the bladder or the kidneys: ?Bladder infections are more common than kidney infections. They happen when bacteria get into the urethra and travel up into the bladder. The medical term for bladder infection is cystitis. Most of the time, when people talk about a UTI, they mean a bladder infection. ?Kidney infections happen when the bacteria travel even higher, up into the kidneys. The medical term for kidney infection is pyelonephritis. This is more serious than a bladder infection, and can lead to other serious problems if it is not treated properly. Both bladder and kidney infections are more common in females than males. The risk of UTIs is also higher in people who have a urinary catheter. A catheter is a thin, flexible tube that drains urine from the bladder. It might be used in people who are in the hospital and cannot urinate the normal way. What are the symptoms of a bladder infection? The symptoms include: ?Pain or a burning feeling when you urinate ?The need to urinate often ?The need to urinate suddenly or in a hurry ?Blood in the urine What are the symptoms of a kidney infection? The symptoms of a kidney infection can include the same urinary symptoms that happen with a bladder infection. In addition, kidney infections can cause: ?Fever ?Back pain ?Nausea or vomiting Will I need tests? Maybe. If you think that you might have a UTI, call your doctor or nurse. Sometimes, they can tell if you have one just by learning about your symptoms. Your doctor or nurse might do a simple urine test in the office. They might also do a more involved urine test to check for bacteria. How are UTIs treated? Most are treated with antibiotic pills. These work by killing the germs that cause the infection. ?If you have a bladder infection, you will probably need to take antibiotics for 3 to 7 days. ?If you have a kidney infection, you will probably need to take antibiotics for longer. Some people need to take them for 10 days. If you have a kidney infection, it's also possible that you will need to be treated in the hospital. Your symptoms should begin to improve within a day of starting antibiotics. But you should finish all of the antibiotic pills. Otherwise, the infection might come back. If needed, you can also take a medicine to numb your bladder. This medicine eases the pain caused by UTIs. It also reduces the need to urinate. What if I get bladder infections a lot? First, check with your doctor or nurse to make sure that you are really having bladder infections. The symptoms of bladder infection can be caused by other things. Your doctor or nurse will want to see if those problems might be causing your symptoms. If your doctor confirms that you are having repeated infections, there are things you can do to keep from getting more infections. These include: ?Drinking more fluid ? This can help prevent bladder infections. ?Vaginal estrogen ? If you have already been through menopause, your doctor might suggest this. Vaginal estrogen comes in a cream or a flexible ring that you put into your vagina. It can help prevent bladder infections. Other things that might help: ?Avoid spermicides (sperm-killing creams or gels) ? Spermicide is a form of control. It seems to increase the risk of bladder infections in some females, especially when used with a diaphragm. If you use spermicide and get a lot of bladder infections, you might want to try switching to a different form of control. ?Urinate right after sex ? Some doctors think this helps, because it helps flush out germs that might get into the bladder during sex. There is no proof it works, but it also cannot hurt. If you get a lot of bladder infections, and the above methods have not helped, talk to your doctor about what else you can do to prevent infection. Taking an antibiotic every day or after sex can help prevent bladder infections. But long- term use of antibiotics has downsides, so doctors usually suggest trying other things first, such as: ?Methenamine (brand name: Hiprex) ? This is a pill you take every day. It changes your urine to make it harder for bacteria to grow. It works almost as well as antibiotics to prevent bladder infections. ?Cranberry juice or other cranberry products ? These might help prevent bladder infections. But doctors do not know what the best dose is. Can other products prevent bladder infections? People often wonder about other natural products that claim to help prevent bladder infections. These include probiotic pills, vitamin C, and D-mannose. There is not good evidence that these things work. However, there is also no clear evidence that they are harmful. If you have questions about these or other products, talk with your doctor or nurse.
[2024-08-12 12:19] VITALS: BP 132/72; PULSE 97; RESP 13; O2SAT 97; BMI 38.7
== END 2024-08-12 13:37 | disposition home or self-care (01) ==
PROVIDERS: PCP Family Medicine; Visit Provider Nurse Practitioner Family
DX: Z09 Encounter for follow-up examination after completed treatment for conditions other than malignant neoplasm (principal); N30.01 Acute cystitis with hematuria; Z68.38 Body mass index [BMI] 38.0-38.9, adult; E66.812 Obesity, class 2; E66.01 Morbid (severe) obesity due to excess calories; N39.0 Urinary tract infection, site not specified; Z23 Encounter for immunization

== ENCOUNTER → 2024-08-12 12:02 | Outpatient (BNVA) | payer OTHER, SELFPAY | PROVIDERS: PCP Family Medicine; Visit Provider Nurse Practitioner Family | DX: K50.90 Crohn's disease, unspecified, without complications (principal); M45.9 Ankylosing spondylitis of unspecified sites in spine; F41.9 Anxiety disorder, unspecified; N30.01 Acute cystitis with hematuria; E66.812 Obesity, class 2; Z23 Encounter for immunization; Z09 Encounter for follow-up examination after completed treatment for conditions other than malignant neoplasm; Z68.38 Body mass index [BMI] 38.0-38.9, adult | CPT/HCPCS: 36415; 80053; 90471; 90656; 96127; 99212 ==

== ENCOUNTER 2024-08-12 13:51 | Outpatient (REF) | payer OTHER, SELFPAY ==
[2024-08-12 18:07] LABS: Alanine Aminotransferase 42 U/L (0-31); Albumin Level 4.4 g/dL (3.5-5.0); Alkaline Phosphatase 72 U/L (39-117); Anion Gap 13 (12-20); Aspartate Amino Transferase 55 U/L (5-31); Bilirubin Total 0.6 mg/dL (0.0-1.0); Blood Urea Nitrogen 8 mg/dL (9-16); Calcium 9.7 mg/dL (8.4-10.2); Carbon Dioxide 29 mmol/L (22-29); Chloride 105 mmol/L (96-108); Estimated Glomerular Filt Rate > 60; Glucose Random 99 mg/dL (60-115); Potassium 4.5 mmol/L (3.3-5.1); Sodium 142 mmol/L (135-145); Total Protein 7.4 g/dL (6.5-8.0)
== END 2024-08-12 13:52 | disposition home or self-care (01) ==
LOC: HO.WFDLDS 13:51
PROVIDERS: Visit Provider Nurse Practitioner Family
DX: Z13.89 Encounter for screening for other disorder (principal)
CPT/HCPCS: 36415; 80053

== ENCOUNTER 2024-08-18 14:07 | Outpatient (REF) | payer OTHER, SELFPAY ==
--- NOTE | ~2024-08-18 | US_ITS ---
EXAMINATION: US HEAD NECK SOFT TISSUE CLINICAL INFORMATION: Six-month follow-up right neck lymph nodes, level 2. COMPARISON: 12/31/2023. TECHNIQUE: Linear transducer hernandez-scale and color Doppler examination with attention to the right neck level 2 lymph nodes. FINDINGS: NODES: -There are 2 level II lymph nodes present, the larger measuring 1.1 x 0.8 x 0.8 cm, previously 1.2 x 0.9 x 0.9 cm. -There is an additional 0.7 x 0.4 x 0.5 cm normal-appearing right level 2 node. -These demonstrate normal shaina morphology, with preserved fatty chaitanya, and reniform oval appearance. These are consistent with reactive lymph nodes and are not pathologic in appearance. US/US soft tiss head and/or neck IMPRESSION: 1. Reactive, nonpathologic appearing lymph nodes in the right neck level II. Further follow-up is deemed not necessary. Electronically signed by: Randall Paulson MD 08/19/2024 10:06 AM ABRAHAM
== END 2024-08-18 14:08 | disposition home or self-care (01) ==
LOC: HO.US 14:07
PROVIDERS: PCP Family Medicine; Visit Provider Family Medicine
DX: R22.1 Localized swelling, mass and lump, neck (principal)
CPT/HCPCS: 76536

== ENCOUNTER → 2024-08-18 14:09 | Outpatient (BNV) | payer OTHER, SELFPAY | PROVIDERS: PCP Family Medicine; Visit Provider Radiology Diagnostic Radiology | DX: R22.1 Localized swelling, mass and lump, neck (principal) | CPT/HCPCS: 76536 ==

== ENCOUNTER 2024-09-16 12:40 | Outpatient (AMB) | payer OTHER, SELFPAY ==
[2024-09-16 12:44] VITALS: BMI 38.7
--- NOTE | 2024-09-16 12:44 | A.OFFVIS_ITS ---
Vital Signs 09/16/24 12:44 Height 5 ft Weight 198 lb BMI 38.7 Intake Visit Reasons: Bilateral knee pains Intake Note: Josselin is a 54 year old female who presents with complaints of progressively worsening bilateral knee pains. She describes her pains as sharp in nature. Her pains have gotten worse over the last year in spite of continued non operative treatments. The patient was scheduled to undergo bilateral knee Durolane viscosupplementation injections today. She wishes to proceed with just her left knee today. She has done physical therapy exercises in the past which aggravated her pain. Allergies Penicillins [PENICILLINS] Allergy (Severe, Verified 09/16/24 12:44) ANAPHYLAXIS simvastatin Allergy (Mild, Verified 09/16/24 12:44) weird feeling ibuprofen Adverse Reaction (Intermediate, Verified 09/16/24 12:44) stomach upset, irritates [facility]'s Medication List - Last Reconciled 09/16/24 by Andrea Ponce MD adalimumab (Humira(CF) Pen) 40 mg subcut Q2W albuterol sulfate 90 mcg/actuation 2 puffs inhalation QID PRN albuterol sulfate 2.5 mg (3 mL) inhalation Q4-6H PRN 30 days alendronate 70 mg PO QWEEK 28 days azelastine intranasal budesonide 32 mcg/actuation 1 spray intranasal DAILY cholecalciferol (vitamin D3) 50 mcg PO DAILY 3 months clotrimazole 1% 1 appful vaginal BEDTIME PRN coenzyme Q10 (Co Q-10) 50 mg PO DAILY cranberry extract 250 mg PO DAILY cyanocobalamin (vitamin B-12) 1,000 mcg PO DAILY 30 days diclofenac sodium 1% (Arthritis Pain (diclofenac)) 4 grams topical QID 30 days docusate sodium 200 mg (2 x 100 mg) PO BID 3 months epinephrine (EpiPen 2-Isma) 0.3 mg (0.3 mL) IM Q10M PRN fluticasone propion-salmeterol 500-50 mcg/dose inhalation lamotrigine (Lamictal) 100 mg PO DAILY loratadine 10 mg PO DAILY 90 days lorazepam 0.5 mg PO BID PRN mesalamine 1,200 mg (3 x 400 mg) PO BID montelukast 10 mg PO DAILY nystatin 5 mL PO DAILY 10 days nystatin-triamcinolone 100,000-0.1 unit/g-% 1 appl topical TID olopatadine 0.2% 1 drp ophthalmic (eye) DAILY PRN 30 days omeprazole 20 mg PO DAILY rosuvastatin 40 mg PO DAILY tizanidine 2 mg PO TID PRN 30 days [facility] Medical History Tubular adenoma Chronic idiopathic constipation Crohn disease Unspecified asthma, uncomplicated Dysuria Surgical History Hx of colonoscopy History of esophagogastroduodenoscopy (EGD) No pertinent past surgical history Family History Father Suicide Mother Hypertension Diabetes Paternal Grandmother Stroke Brother In good health Sister In good health Social History Housing: Other Housing Other:: mobile home Alcohol intake: current Alcohol intake frequency: does not drink Patient Tobacco Use Status: Never used Tobacco e-Cigarette/Vaping Use: Never Used Second Hand Smoke Exposure: Yes service: No Current occupational status: disabled Current occupational exposures/hazards: No Cognitive needs: No Hearing needs: No Vision needs: No Physical Exam Vital Signs: BMI result Body Mass Index 38.7 Const Other: Well-nourished well-developed very friendly female awake alert and oriented x3 in no acute distress Extrem Other: Bilateral lower extremity examination shows good capillary refill, no skin lesions noted, normal sensation light touch Bilateral knee examination shows minimal effusions, palpable crepitus with range of motion, pain with range of motion Office Procedures AMB Joint Injection/Aspiration Joint Injection/Aspiration Primary Site: left knee Prep: site was prepped using aseptic technique Injected: 60 mg of (Durolane viscosupplementation) and 1% plain lidocaine Procedure: The patient tolerated the procedure well Coding 19602 - Large joint Procedure code (CPT) selection complete Results Reviewed Results Reviewed: X-rays of the patient's bilateral knees taken previously show joint space narrowing, subchondral sclerosis, no acute bony abnormalities Assessment & Plan Assessment & Plan (1) Osteoarthritis of left knee: Code(s): M17.12 - Unilateral primary osteoarthritis, left knee Category: Medical Plan Ms. Harrington presents with bilateral knee pains due to osteoarthritis. The risks and benefits of a left knee Durolane viscosupplementation injection were discussed at length with the patient. The patient wished to proceed. She tolerated the injection well. We will hold off on a right knee injection for now. She will follow up with me on an as-needed basis. Feel free to call me at any time should questions regarding her orthopedic management arise. I spent 21 minutes in reviewing the patient's records and imaging studies, seeing the patient and documenting in the medical record. Orders: Orders AMB Joint Injection/Aspiration Today M17.12 - Unilateral primary osteoarthritis, left knee Coding Level of Care Code Est Pt Level 3 (68577) Complex EM visit Add On G2211 Diagnoses Osteoarthritis of left knee M17.12 CPT Codes Coding - 15347 Large joint: 47837 - Large joint ([id number])
--- OUTSIDE RECORDS SUMMARY | 2024-09-16 14:04 | XMS_ITS | Encounter Summary ---
Author Organization [facility] Address [address] [place] [address] Care Team Providers Care First Helper Name Role Phone Lisa Santos MD Primary Care Provider [phone] Reason for Visit * Imaging (Routine) - Closed Specialty Diagnoses / Procedures Referred By Joey hunt Referred To Contact Radiology Diagnoses Encounter for screening mammogram for breast cancer Procedures MG Mammo Digital Screening w Carlos Eduardo bilat MG Mammo Digital Screening w Carlos Eduardo bilat Lisa Santos MD [address] [place] [address] Phone: tel: fax: [facility] Referral ID Status Reason Start Date Expiration Date Visits Re quested Visits Authorized [id number] Closed 05/21/2024 05/21/2025 1 1 Encounter Details Date Type Department Care Team (Latest Contact Info) Description 09/02/2024 2:07 PM EST - 09/02/2024 11:59 PM EST Hospital Encounter Radiology Department - [address] [address] Encounter for screening mammogram for breast cancer Discharge Disposition: Home or Self Care Social History Tobacco Use Types Packs/Day Years Used Date Smoking Tobacco: Never Smokeless Tobacco: Never Alcohol Use Standard Drinks/Week Comments No 0 (1 standard drink = 0.6 oz pur e alcohol) Comments No Sex and Gender Information Value Date Recorded Sex Assigned at Not on file Legal Sex Female 5:18 AM EST Gender Identity Not on file Sexual Orientation Not on file documented as of this encounter Medications at Time of Discharge adalimumab (Humira,CF, Pen) 40 mg/0.4 mL pen Inject 40 mg as directed every 14 days. 07/20/2021 albuterol HFA (PROAIR HFA ; PROVENTIL HFA ; VENTOLIN HFA) 90 mcg/actuation inhaler INHALE 2 PUFFS INTO THE LUNGS EVERY 4 HOURS NEEDED FOR COUGH OR WHEEZING. 06/30/2018 ascorbic acid (VITAMIN C) 250 mg tablet Take 250 mg by mouth daily. azelastine (ASTELIN) 137 mcg (0.1 %) nasal spray 1-2 Sprays by Each Nare route 2 times daily. Use in each nostril as directed 01/09/2021 budesonide (RHINOCORT AQ) 32 mcg/actuation nasal spray 2 Sprays by Nasal route daily. May use 2 to 4 sprays daily. 01/09/2021 cholecalciferol (VITAMIN D-3) 50 mcg (2,000 unit) tablet Take 1 tablet (2,000 Units total) by mouth 1 (one) time each day. 03/16/2021 coenzyme Q-10 10 mg capsule Take by mouth. 08/17/2016 docusate sodium (COLACE) 100 mg capsule Take 1 capsule by mouth 3 times daily as needed for Constipation. 12/06/2020 fluticasone propion-salmeter oL (ADVAIR DISKUS) 500-50 mcg/dose diskus inhaler Inhale 1 Puff into the lungs every 12 hours. lamoTRIgine (LaMICtal) 100 mg tablet Take 100 mg by mouth daily. loratadine (CLARITIN) 10 mg tablet Take 1 tablet (10 mg total) by mouth 1 (one) time each day. 11/06/2021 LORazepam (ATIVAN) 0.5 mg tablet Take 1 tablet (0.5 mg total) by mouth 1 (one) time each day if needed. Max Daily Amount: 0.5 mg 09/19/2017 mesalamine (LIALDA) 1.2 gram EC tablet Take 1 tablet (1.2 g total) by mouth 2 (two) times a day. 01/11/2022 montelukast (SINGULAIR) 10 mg tablet Take 1 tablet (10 mg total) by mouth at bedtime. mupirocin (BACTROBAN) 2 % ointment Apply topically 2 times daily. nystatin (MYCOSTATIN) 100,000 unit/mL suspension Suspension (swish and swallow): Use 5mL 4 times/day; swish in the mouth and retain for as long as possible (several minutes) before swallowing 02/03/2021 omeprazole (PriLOSEC) [address] capsule Take 1 capsule (40 mg total) by mouth 1 (one) time each day. 03/16/2021 pravastatin (PRAVACHOL) 80 mg tablet Take 1 tablet (80 mg total) by mouth 1 (one) time each day. 11/06/2021 sodium chloride ([place] Saline) 0.65 % nasal drops 3 Drops by Each Nare route 3 times daily. 03/16/2021 tiZANidine (ZANAFLEX) 2 mg capsule Take 1 capsule by mouth at bedtime as needed for Muscle spasms. 01/18/2021 documented as of this encounter Discharge Disposition Disposition Code Departure Means Destination Home or Self Care documented in this encounter Plan of Treatment Not on file documented as of this encounter Procedures Procedure Name Priority Date/Time Associated Diagnosis Comments MG MAMMO DIGITAL SCREENING W CARLOS EDUARDO BILAT Routine 09/02/2024 2:21 PM EST Encounter for screening mammogram for breast cancer documented in this encounter Results * MG Mammo Digital Screening w Carlos Eduardo bilat (09/02/2024 2:21 PM EST) Anatomical Region Laterality Modality Breast Bilateral Mammography 09/03/2024 8:19 AM EST Impressions 09/03/2024 8:24 AM EST No mammographic evidence of malignancy. BREAST DENSITY: B - There are scattered areas of fibroglandular density. BI-RADS CATEGORY: 2 - BENIGN RECOMMENDATION: Screening bilateral mammogram is recommended in 1 year. MAMMO LOCATION: [facility], [address] [place] [address], [address], . -------- FINAL REPORT -------- Dictated By: Roselyn Martinez Dictated Date: 09/03/2024 08:19 ET Assigned Physician: Roselyn Martinez Reviewed and Electronically Signed By: Roselyn Martinez Signed Date: 09/03/2024 08:24 ET Workstation ID: [id number] Transcribed By: Self Edit Transcribed Date: 09/03/2024 08:19 ET Narrative 09/03/2024 8:24 AM EST EXAM: Screening Mammogram CLINICAL: 54 years old, Female, routine annual exam. ??History of a benign left core biopsy 06/25/2018. COMPARISON: 08/22/2023 and as far back as 07/25/2020 ?? TECHNIQUE: Bilateral MLO and CC views were obtained digitally with 3-D mammogram (digital breast tomosynthesis). Computer-aided detection was utilized in evaluation of this exam (CAD). FINDINGS: No new suspicious mass, architectural distortion, or suspicious calcifications. Biopsy marker again noted in the lower inner left breast with a stable associated focal asymmetry. Procedure Note Roselyn Martinez MD - 09/03/2024 EXAM: Screening Mammogram CLINICAL: 54 years old, Female, routine annual exam. History of a benignleft core biopsy 06/25/2018. COMPARISON: 08/22/2023 and as far back as 07/25/2020 TECHNIQUE: Bilateral MLO and CC views were obtained digitally with 3-Dmammogram (digital breast tomosynthesis). Computer-aided detection wasutilized in evaluation of this exam (CAD). FINDINGS: No new suspicious mass, architectural distortion, or suspiciouscalcifications. Biopsy marker again noted in the lower inner left breastwith a stable associated focal asymmetry. IMPRESSION: No mammographic evidence of malignancy. BREAST DENSITY: B - There are scattered areas of fibroglandular density. BI-RADS CATEGORY: 2 - BENIGN RECOMMENDATION: Screening bilateral mammogram is recommended in 1 year. MAMMO LOCATION: [facility], [address] [place] [address], [address], . -------- FINAL REPORT -------- Dictated By: Roselyn Martinez Dictated Date: 09/03/2024 08:19 ET Assigned Physician: Roselyn Martinez Reviewed and Electronically Signed By: Roselyn Martinez Signed Date: 09/03/2024 08:24 ET Workstation ID: [id number] Transcribed By: Self Edit Transcribed Date: 09/03/2024 08:19 ET Lsia Santos MD IMG BI PROCEDURES Final Result documented in this encounter Visit Diagnoses Diagnosis Encounter for screening mammogram for breast cancer documented in this encounter Care Teams First Helper Relationship Specialty Start Date End Date Lisa Santos MD [address] [place] [address] PCP - General Internal Medicine 02/15/22 documented as of this encounter
--- OUTSIDE RECORDS SUMMARY | 2024-09-16 14:04 | XMS_ITS ---
Author Organization [facility] Address [address] [address] Care Team Providers Care Community Health Planning Director Name Role Phone BRITNEY STOREY Primary Care Provider Unavailab Debo Seymour Unavailable [phone] REASON FOR VISIT ULTRA - BLOATING PAIN Encounters Encounter Location Date Provider Diagnosis [facility] [address] [place] [address] 06/19/2024 Debo Patel Plan Of Treatment Next Appt Details Provider Name:Debo head, 06/10/2025 02:40:00 PM, [address] [facility], [address], [place], [address], Progress Notes * JAIME SÁNCHEZDOB:1970 (54 yo F)Acc No.[id number]:06/19/2024 PROGRESS NOTES Patient:?JAIME SÁNCHEZ Appointment Provider:?Debo head M.D. :1970???Age:54 Y???Sex:Female D ate:06/19/2024 Address:[address] [place], [place] [id number] Pcp:BRITNEY STOREY Subjective: * Chief Complaints: * ???1. ULTRA - BLOATING PAIN. * Medical History:? Objective: * Vitals:? Assessment: Plan: * Treatment: * Images: Billing Information: * Visit Code:? * Procedure Codes:? * Electronic signature of Mary Patel MD on 09/16/2024 at 02:04 PM EST Sign off status: Pending * Appointment Provider:?Debo Patel M.D. Date:?06/19/2024 Generated for Jasmyn gordon/Linda/Fredrick on:?09/16/2024 02:04 PM EST
--- OUTSIDE RECORDS SUMMARY | 2024-09-16 14:04 | XMS_ITS ---
Author Organization [facility] Address [address] [facility] [address] [place] [address] Care Team Providers Care Chemical Pumper Name Role Phone BRITNEY STOREY Primary Care Provider UnavailDebo Alford Unavailable [phone] REASON FOR VISIT YEAST INFECTION Encounters Encounter Location Date Provider Diagnosis [facility] [address] [facility] [address] [place] [address] 07/30/2024 Debo Patel Plan Of Treatment Next Appt Details Provider Name:Debo head, 06/10/2025 02:40:00 PM, [address] [facility], [address], [place], [address], Progress Notes * GONZALOTROY GruberBaldoDOB:1970 (54 yo F)Acc No.[id number]:07/30/2024 Patient:?JAIME SÁNCHEZ :1970???Age:54 Y???Sex:Female Address:[address] [place] [address], [address] * true * Date:? Generated for Printi evan/Linda/eTransmitting on:?09/16/2024 02:04 PM EST
--- OUTSIDE RECORDS SUMMARY | 2024-09-16 14:04 | XMS_ITS | Clinical Summary ---
Author Organization [facility] [address] [place] [address] [place] [phone] Phone Care Team Providers Care Membership Manager Name Role Phone Lisa Santos MD Primary Care Provider [phone] Allergies Active Allergy Reactions Criticality Noted Date Comments Ibuprofen 04/03/2018 Irritatates colon Penicillins 10/06/2015 anaphylaxis Simvastatin Low 10/24/2015 Fatigue, stomach upset Medications adalimumab (Humira,CF, Pen) 40 mg/0.4 mL pen Inject 40 mg as directed every 14 days. 1 Active albuterol HFA (PROAIR HFA ; PROVENTIL HFA ; VENTOLIN HFA) 90 mcg/actuation inhaler INHALE 2 PUFFS INTO THE LUNGS EVERY 4 HOURS NEEDED FOR COUGH OR WHEEZING. 8 Active ascorbic acid (VITAMIN C) 250 mg tablet Take 250 mg by mouth daily. Active azelastine (ASTELIN) 137 mcg (0.1 %) nasal spray 1-2 Sprays by Each Nare route 2 times daily. Use in each nostril as directed 1 Active budesonide (RHINOCORT AQ) 32 mcg/actuation nasal spray 2 Sprays by Nasal route daily. May use 2 to 4 sprays daily. 1 Active cholecalciferol (VITAMIN D-3) 50 mcg (2,000 unit) tablet Take 1 tablet (2,000 Units total) by mouth 1 (one) time each day. 1 Active docusate sodium (COLACE) 100 mg capsule Take 1 capsule by mouth 3 times daily as needed for Constipation. 1 Active fluticasone propion-salmete roL (ADVAIR DISKUS) 500-50 mcg/dose diskus inhaler Inhale 1 Puff into the lungs every 12 hours. Active lamoTRIgine (LaMICtal) 100 mg tablet Take 100 mg by mouth daily. Active loratadine (CLARITIN) 10 mg tablet Take 1 tablet (10 mg total) by mouth 1 (one) time each day. 2 Active LORazepam (ATIVAN) 0.5 mg tablet Take 1 tablet (0.5 mg total) by mouth 1 (one) time each day if needed. Max Daily Amount: 0.5 mg 8 Active mesalamine (LIALDA) 1.2 gram EC tablet Take 1 tablet (1.2 g total) by mouth 2 (two) times a day. 2 Active montelukast (SINGULAIR) 10 mg tablet Take 1 tablet (10 mg total) by mouth at bedtime. Active mupirocin (BACTROBAN) 2 % ointment Apply topically 2 times daily. Active nystatin (MYCOSTATIN) 100,000 unit/mL suspension Suspension (swish and swallow): Use 5mL 4 times/day; swish in the mouth and retain for as long as possible (several minutes) before swallowing 1 Active omeprazole (PriLOSEC) [address] capsule Take 1 capsule (40 mg total) by mouth 1 (one) time each day. 1 Active pravastatin (PRAVACHOL) 80 mg tablet Take 1 tablet (80 mg total) by mouth 1 (one) time each day. 2 Active sodium chloride ([place] Saline) 0.65 % nasal drops 3 Drops by Each Nare route 3 times daily. 1 Active tiZANidine (ZANAFLEX) 2 mg capsule Take 1 capsule by mouth at bedtime as needed for Muscle spasms. 1 Active coenzyme Q-10 10 mg capsule Take by mouth. 7 Active Active Problems Problem Noted Date Diagnosed Date Ankylosing spondylitis 08/07/2024 Overview (08/07/2024): Onset ~ s: SI joint fusion, fused LS and T spine Humira started December 2015- held in the summer due to dental problems Episode of Iritis - 05/23 Hepatic steatosis 08/07/2024 Morbid obesity with BMI of 40.0-44.9, adult 10/2024 Chronic rhinitis 09/23/2019 Vitamin B12 deficiency 05/20/2019 Snoring 01/05/2019 Overview (08/07/2024): 12/2018 Home Sleep Study did not reveal sleep apnea or nocturnal hypoxia. 04/2019 Diagnostic polysomnogram did not reveal ELIJAH or nocturnal hypoxia. Crohn's disease of large intestine without compl ication 08/11/2018 RLS (restless legs syndrome) 05/28/2018 Thyroid nodule 12/10/2017 Fracture of lumbar spine 08/05/2017 Overview (08/07/2024): Macario fracture Sternal fracture 08/05/2017 Fracture of rib of left side 08/05/2017 Overview (08/07/2024): Left 7th and 8th fracture Lung nodules 05/05/2016 Overview (08/07/2024): on imaging at [facility], followed by Dr. Gaytan. CAT scan 04/23/17: New ground glass opacities. Bilateral lung nodules Disc disease, degenerative, cervical 12/13/2015 Iron deficiency anemia 11/25/2015 Vitamin D deficiency 11/25/2015 Depression with anxiety 10/06/2015 Overview (08/07/2024): With anxiety Hypercholesteremia 10/06/2015 Moderate persistent asthma 10/06/2015 Overview (08/07/2024): Dr. Gaytan Encounters Date Type Department Care Team Description 09/02/2024 2:07 PM EST - 09/02/2024 11:59 PM EST Hospital Encounter Radiology Department - [address] [address] Encounter for screening mammogram for breast cancer Discharge Disposition: Home or Self Care from Last 3 Months Immunizations Name Administration Dates Next Due Influenza Quadravalent, MDCK , 0.5ml, preservative free (Flucelvax) 6mo and older 07/14/2019,04/16/2018 Influenza trivalent, with pr eservative (Fluzone; Afluria) 6mo and older 04/06/2020,04/16/2017,04/30/2016 PPD Test 10/12/2015 Pneumococcal conjugate 13 va lent (Prevnar 13, PCV13) 2mo and older 03/16/2021 Pneumococcal polysaccharide 23 valent (Pneumovax 23) 2yo and older 05/21/2016,02/01/2015 Tdap Tetanus diptheria acell ular pertussis (Boostrix; Adacel) 7yo and older 06/21/2016 Surgical History Surgery Date Site/Laterality Comments OTHER SURGICAL HISTORY 09/12/15 [facility] PROCEDURE: COLONOSCOPY, SURGICAL; COMMENT: Patchy erythema of sigmoid and transverse with scattered aphthous erosion; nl terminal ileum; sigmoid tics; hemorrhoids:focal active proctitis and mild active ascending colitis on bxy ESOPHAGOGASTRODUODENOSCOPY 09/12/2015 PROCEDURE: AR ESOPHAGOGASTRODUODENOSCOPY TRANSORAL DIAGNOSTIC; COMMENT: Normal with nl duodenal, antral and GE junction bxys BREAST BIOPSY 06/25/2018 Left PROCEDURE: BX BREAST; PERC NEEDLE CORE W/IMAG GUID; COMMENT: BENIGN FIBROADENOMATOUS CHANGES. OTHER SURGICAL HISTORY 02/2021 PROCEDURE: MAMMOGRAM, SCREENING, BOTH BREASTS Medical History Medical History Date Comments Depression with anxiety 10/06/2015 DX:Depre ssion with anxiety; COMMENT: [facility] - therapist Khushi, tries to see her once in a week Hypercholesteremia 10/06/2015 DX:Hyperchole steremia Asthma 10/06/2015 DX:Asthma; COMME NT: Dr. Gaytan Ulcerative colitis ([facility]/HCC) DX: Ulcerative colitis (HCC); COMMENT: Dr. Baez Ankylosing spondylitis ([facility]) DX:Ankylosing spondylitis (HCC); COMMENT: Dr. Mckay Hepatic steatosis DX:Hepatic sher atosis Pelvic pain 11/24/2015 DX:Pelvic pain Iron deficiency anemia 11/25/2015 DX:Iron d eficiency anemia Vitamin D deficiency 11/25/2015 DX:Vitamin D deficiency Disc disease, degenerative, cervical 12/13/2015 DX:Disc disease, degenerative, cervical Lung nodules 05/2016 DX:Lung nodules; COMMENT: on imaging at [facility], followed by Dr. Gaytan. Fracture of rib of left side 08/2017 DX: Fracture of rib of left side; COMMENT: Left 7th and 8th fracture Fracture of lumbar spine (CMS/HCC) 08/2017 DX:Fracture of lumbar spine (HCC); COMMENT: Macario fracture Sternal fracture 08/2017 DX:Sternal frac ture Crohn's disease (CMS/HCC) DX:[employer]er [employer] h[employer]'s disease (HCC) Family History Medical History Relation Name Comments Diabetes Brother 1 Arthritis Brother 2 Suicide Attempts Father Arthritis Maternal Grandmother Dementia Mother bipolar, arthri tis, DM Breast cancer Neg Hx Colon cancer Neg Hx Ovarian cancer Neg Hx Uterine cancer Neg Hx Relation Name Status Comments Brother 1 Alive Brother 2 Father Maternal Grandmother Mother Social History Tobacco Use Types Packs/Day Years Used Date Smoking Tobacco: Never Smokeless Tobacco: Never Alcohol Use Standard Drinks/Week Comments No 0 (1 standard drink = 0.6 oz pur e alcohol) Comments No Sex and Gender Information Value Date Recorded Sex Assigned at Not on file Legal Sex Female 5:18 AM EST Gender Identity Not on file Sexual Orientation Not on file Obstetrics History Para Term AB IAB SAB Ectopic Multiple Livin g Live Births 0 0 0 0 Plan of Treatment Health Maintenance Due Date Last Done Comments Hepatitis B Vaccines (1 of 3 - 19+ 3-dose series) 1989 Cervical Cancer Screening: Pap Smear 12/11/2018 12/12/2015, 12/12/2015 Zoster Vaccines (1 of 2) 02/13/2020 Depression Screening 07/14/2022 Medicare Annual Wellness Visit 07/14/2022 Social Influencers of Health Screening 07/14/2022 COVID-19 Vaccine ( season) 2024 06/02/2021, 11/16/2020, 10/26/2020 Cholesterol Screening (Lipid Panel) 08/21/2024 08/21/2019 Hypertension/CHF/CAD Annual BMP Blood Test 09/03/2024 12/06/2020 Colorectal Cancer Screening: Colonoscopy 09/12/2025 09/12/2015 Pneumococcal Vaccine: 50+ Years (3 of 3 - PCV20 or PCV21) 03/16/2026 03/16/2021, 05/21/2016, 02/01/2015 Pneumococcal Vaccine: Pediatrics (0 to 5 Years) and At-Risk Patients (6 to 64 Years) (3 of 3 - PCV20 or PCV21) 03/16/2026 03/16/2021, 05/21/2016, 02/01/2015 Breast Cancer Screening 09/02/2026 09/02/19 25, 08/22/2023, 08/17/2022, Additional history exists DTaP,Tdap,and Td Vaccines (3 - Td or Tdap) 04/15/2033 04/15/2023, 06/21/2016 HIV Screening Completed 01/10/2018 Hepatitis C Screening Completed 12/06/2020 Influenza Vaccine Completed 08/12/2024, , 05/05/2021, Additional history exists HIB Vaccines Aged Out No longer eligi ble based on patient's age to complete this topic HPV Vaccines Aged Out No longer eligi ble based on patient's age to complete this topic Hepatitis A Vaccines Aged Out No long er eligible based on patient's age to complete this topic IPV Vaccines Aged Out No longer eligi ble based on patient's age to complete this topic MMR Vaccines Aged Out No longer eligi ble based on patient's age to complete this topic Meningococcal ACWY Vaccine Aged Out N o longer eligible based on patient's age to complete this topic Meningococcal B Vacine Aged Out No lo nger eligible based on patient's age to complete this topic RSV Immunization Patients Under 20 months Aged Out No longer eligible based on patient's age to complete this topic Varicella Vaccines Aged Out No longer eligible based on patient's age to complete this topic Procedures Procedure Name Priority Date/Time Associated Diagnosis Comments MG MAMMO DIGITAL SCREENING W CARLOS EDUARDO BILAT Routine 09/02/2024 2:21 PM EST Encounter for screening mammogram for breast cancer HEPATITIS C SCREENING Routine 12/06/2020 ANNUAL BMP BLOOD TEST Routine 12/06/2020 LIPID PANEL Routine 08/21/2019 HIV SCREENING Routine 01/10/2018 HPV Routine 12/12/2015 COLONOSCOPY Routine 09/12/2015 from Last 3 Months or Most Recently Relevant to Health Maintenance Results * MG Mammo Digital Screening w Carlos Eduardo bilat (09/02/2024 2:21 PM EST) Anatomical Region Laterality Modality Breast Bilateral Mammography 09/03/2024 8:19 AM EST Impressions 09/03/2024 8:24 AM EST No mammographic evidence of malignancy. BREAST DENSITY: B - There are scattered areas of fibroglandular density. BI-RADS CATEGORY: 2 - BENIGN RECOMMENDATION: Screening bilateral mammogram is recommended in 1 year. MAMMO LOCATION: [facility], [address] [place] [address], [address], . -------- FINAL REPORT -------- Dictated By: Roselyn Martinez Dictated Date: 09/03/2024 08:19 ET Assigned Physician: Roselyn Martinez Reviewed and Electronically Signed By: Roselyn Martinez Signed Date: 09/03/2024 08:24 ET Workstation ID: [id number] Transcribed By: Self Edit Transcribed Date: 09/03/2024 [...] is recommended in 1 year. MAMMO LOCATION: [facility], [address] [place] [address], [address], . -------- FINAL REPORT -------- Dictated By: Roselyn Martinez Dictated Date: 09/03/2024 08:19 ET Assigned Physician: Roselyn Martinez Reviewed and Electronically Signed By: Roselyn Martinez Signed Date: 09/03/2024 08:24 ET Workstation ID: [id number] Transcribed By: Self Edit Transcribed Date: 09/03/2024 08:19 ET Result [facility] Lisa Santos MD IMG BI PROCEDURES Final Result * Annual BMP Blood Test (12/06/2020) [facility] Annual BMP Blood Test abstracted Result [facility] Provider HEALTH MAINTENANCE Final Result * Hepatitis C Screening (12/06/2020) [facility] Hepatitis C Screening abstracted Result [facility] Provider HEALTH MAINTENANCE Final Result * (ABNORMAL) Lipid panel (08/21/2019) [facility] LDL/HDL Ratio 4 0 - 4 Triglycerides 186(A) 0 - 150 mg/dL Cholesterol 198 0 - 200 mg/dL HDL 56 >=40 mg/dL LDL Cholesterol 105(A) 0 - 100 mg/dL Blood Venous blood specimen / Unknown Result [facility] Provider LAB BLOOD ORDERABLES Miacela l Result * HIV Screening (01/10/2018) [facility] HIV Screening abstracted Historical Provider HEALTH MAINTENANCE Final Result * Cervical Cancer Screening: HPV (12/12/2015) [facility] Cervical Cancer Screening: HPV abstracted, negative [facility] Provider HEALTH MAINTENANCE Final Result * Colonoscopy (09/12/2015) [facility] Colonoscopy no interpretation , abstracted Anatomical Region Laterality Modality Other [facility] Provider HEALTH MAINTENANCE Final Result from Last 3 Months or Most Recently Relevant to Health Maintenance Insurance [employer] MEDICARE Member Subscriber Plan / Payer (Ef fective 2016-Present) Name:Josselni Harrington Relation to Subscriber:Self Name:Josselin Harrington Payer ID:[id number] Group ID:[id number] Type:Not on file Address: [place] [address] [address] [id number] Care Teams Membership Manager Relationship Specialty Start Date End Date Lisa Santos MD [address] [place] [address] PCP - General Internal Medicine 02/15/22
--- OUTSIDE RECORDS SUMMARY | 2024-09-16 14:04 | XMS_ITS | Patient Health Record ---
Author Organization [facility] Address [address] [place] [address] Care Team Providers Care Press Leader Name Role Phone BRITNEY STOREY Primary Care Provider Unavailab eDbo Seymour Unavailable [phone] Allergies Allergen (clinical drug ingredient) Drug/Non Drug Allergy documented on EMR Reaction Allergy Type Onset Date Status Bee Sting Unknown Allergy Active ibuprofen Ibuprofen Irritates Crohns Drug Allergy Active Penicillin Unknown Drug Allergy Active simvastatin Simvastatin Sick Drug Allergy Act sadiq Results Component Value Reference Range Notes Urinalysis Reviewed date:06/03/2024 03:02:58 PM Interpretation: Performing Lab: Notes/Report: PH 8.0 PROTEIN Neg GLUCOSE Neg BLOOD Neg Reason For Referral No Information Medications Medication SIG (Take, Route, Frequency, Duration) Notes Start Date End Date Status Terconazole 0.8 % 1 applicatorful at b edtime Vaginal EVERY NIGHT X 3 for 3 days 06/03/2024 Active Tylenol 1 tab Oral for 14 days Active LORazepam 0.5 MG 1 tablet at bedtime as needed Orally Once a day 06/03/2024 Active Humira Pen 40 MG/0.4ML Subcutaneous for 28 Active Rosuvastatin Calcium 40 MG Oral for 90 Active lamoTRIgine 100 MG Oral for 30 Active Mesalamine 400 MG 1 capsule Oral Twice a day for 20 days Active Clotrimazole-Betamethasone 1-0.05 % 1 application to affected area Externally Twice a day for 14 days 05/29/2023 Active CoQ-10 50 MG as directed Orally Active Omeprazole 20 MG 1 capsule Orally Onc e a day Active Docusate Sodium 100 MG 1 capsule Oral Tw ice a day for 90 days Active Vitamin D3 50 MCG (2000 UT) TAKE 1 TABLET BY MOUTH ONCE DAILY Oral for 90 Active Vitamin B-12 1000 MCG TAKE 1 TABLET BY M OUTH ONCE DAILY Oral for 90 Active Montelukast Sodium 10 MG Oral for 30 Active AZO Cranberry 250-30 MG as directed Orally Active Loratadine 10 MG Oral for 90 A ctive Budesonide 32 MCG/ACT 2 sprays (1 spray in each nostril) Nasally Once a day for 30 day(s) Active Nystatin 908971 UNIT/GM 1 application Ex ternally Twice a day Active Azelastine HCl 137 MCG/SPRAY Nasal for 25 Days Active Advair Diskus 500-50 MCG/ACT 1 puff Inhalation Twice a day Active Social History Tobacco Use: Social History Observation Description Date Details (start date - stop date) Never Smoker NA - NA Sexual History Question Answer Notes Had sex in the past 12 months (vaginal, oral, or anal)? Yes with Men only Prevention strategies discussed: Other AUDIT-C (Standard) Question Answer Notes Did you have a drink containing alcohol in the p ast year? No Points 0 Interpretation Negative Tobacco Control (Standard) Question Answer Notes Tobacco use: Nonsmoker Problems Problem Type SNOMED Code ICD Code Onset Dates Problem Status W/U Status Risk Notes Problem Menopause (464129854) Menopausal and female climacteric states (N95.1) Active confirmed Problem Postmenopausal atrophic vaginitis (77668766) Postmenopausal atrophic vaginitis (N95.2) Active confirmed Problem Polycystic ovarian syndrome (E28.2) Active confirmed Problem Morbid obesity (disorder) (608006458) Morbid (severe) obesity due to excess calories (E66.01) Active confirmed Problem Hyperlipidemia (84303114) Hyperlipidemia, unspecified (E78.5) Active confirmed Problem Recurrent depression (722753926) Other recurrent depressive disorders (F33.8) Active confirmed Problem Anxiety disorder (140814984) Anxiety disorder, unspecified (F41.9) Active confirmed Problem Vitreous opacities (088179133) Other vitreous opacities, unspecified eye (H43.399) Active confirmed Problem Asthma (322828371) Other asthma (J45.998) Active confirmed Problem Crohn's disease (68007070) Crohn's disease, unspecified, with unspecified complications (K50.919) Active confirmed Problem Fatty liver (841497469) Fatty (change of) liver, not elsewhere classified (K76.0) Active confirmed Problem Ankylosing spondylitis (1065512) Ankylosing spondylitis of unspecified sites in spine (M45.9) Active confirmed Problem Gastroesophageal reflux disease with esophagitis (disorder) (681781970) Gastro-esophageal reflux disease with esophagitis, without bleeding (K21.00) Active confirmed Vital Signs Temperature 97.4 degrees Fahrenheit 06/03/2024 Blood pressure diastolic 84 mm Hg 06/03/2024 Height 59 in 06/03/2024 Blood pressure systolic 124 mm Hg 06/03/2024 Weight 193 lbs 06/03/2024 BMI 38.98 kg/m2 06/03/2024 Encounters Encounter Location Date Provider Diagnosis [place] [address] [address] 06/19/2024 Debo Patel [address] [address] 06/03/2024 Debo Patel Encounter for gynecological examination (general) (routine) without abnormal findings Z01.419 ; Encounter for screening mammogram for malignant neoplasm of breast Z12.31 and Acute candidiasis of vulva and vagina B37.31 [address] [address] 10/10/2023 Debo Patel [address] [address] 07/30/2024 Debo Patel Assessments Encounter Date Diagnosis (ICD Code) Assessment Notes Treatment Notes Treatment Clinical Notes Section Notes 06/03/2024 Encounter for gynecological examination (general) (routine) without abnormal findings (ICD-10 - Z01.419) NO PAP TEST, DUE IN 2025. 06/03/2024 Encounter for screening mammogram for malignant neoplasm of breast (ICD-10 - Z12.31) REGULAR MAMMOGRAMS AND SBE'S WERE RECOMMENDED. 06/03/2024 Acute candidiasis of vulva and vagina (ICD-10 - B37.31) DISCUSSED FINDINGS, DX AND TX OPTIONS. PAT IS ON A STATIN AND CANNOT BE TREATED WITH DIFLUCAN. RX AND INSTRUCTIONS FOR TERCONAZOLE CREAM WERE GIVEN. LOOSE WHITE COTTON UNDERWEAR. AVOID LEGGINGS. Plan Of Treatment Pending Test Test Name Order Date MM Digital Mammo Screening 05/29/2023 MM Digital Mammo Screening 06/03/2024 Next Appt Details Provider Name:Debo head, 06/10/2025 02:40:00 PM, [address], [address], [place], [address], Insurance Providers Payer Name Payer Address Payer Phone Subscriber Number Group Number Insured Name Patient Relationship to Insured Coverage Start Date Coverage End Date [address] [id number] JAIME SÁNCHEZ Self - patient is the insured Medical (General) History Medical History History ICD Code Other asthma J45.998 Gastro-esophageal reflux disease with es ophagitis, without bleeding K21.00 Crohn's disease, unspecified, with unspe cified complications K50.919 Anxiety disorder, unspecified F41.9 Menopausal and female climacteric states N95.1 Polycystic ovarian syndrome E28.2 Ankylosing spondylitis of unspecified si daniel in spine M45.9 Hyperlipidemia, unspecified E78.5 Other recurrent depressive disorders F33 .8 Postmenopausal atrophic vaginitis N95.2 Morbid (severe) obesity due to excess ca lories E66.01 Other vitreous opacities, unspecified ey e H43.399 Fatty (change of) liver, not elsewhere c lassified K76.0 Surgical History Surgery Date(Month/Year) Colonoscopy Breast Biopsy Thyroid Nodule Biopsy Hospitalization History Reason Date(Month/Year) See Surgical Hx
--- OUTSIDE RECORDS SUMMARY | 2024-09-16 14:04 | XMS_ITS ---
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 Physical 50-59* Medications Medication SIG (Take, Route, Frequency, Duration) Notes Start Date End Date Status Terconazole 0.8 % 1 applicatorful at b edtime Vaginal EVERY NIGHT X 3 for 3 days 06/03/2024 Active Docusate Sodium 100 MG 1 capsule Oral Tw ice a day for 90 days Active Vitamin D3 50 MCG (1999 UT) TAKE 1 TABLET BY MOUTH ONCE DAILY Oral for 90 Active Vitamin B-12 1000 MCG TAKE 1 TABLET BY M OUTH ONCE DAILY Oral for 90 Active Humira Pen 40 MG/0.4ML Subcutaneous for 28 Active lamoTRIgine 100 MG Oral for 30 Active Mesalamine 400 MG 1 capsule Oral Twice a day for 20 days Active Loratadine 10 MG Oral for 90 A ctive CoQ-10 50 MG as directed Orally Active Nystatin 449139 UNIT/GM 1 application Ex ternally Twice a day Active Advair Diskus 500-50 MCG/ACT 1 puff Inhalation Twice a day Active Tylenol 1 tab Oral for 14 days Active LORazepam 0.5 MG 1 tablet at bedtime as needed Orally Once a day 06/03/2024 Active Rosuvastatin Calcium 40 MG Oral for 90 Active Montelukast Sodium 10 MG Oral for 30 Active Clotrimazole-Betamethasone 1-0.05 % 1 application to affected area Externally Twice a day for 14 days 05/29/2023 Active Omeprazole 20 MG 1 capsule Orally Onc e a day Active AZO Cranberry 250-30 MG as directed Orally Active Budesonide 32 MCG/ACT 2 sprays (1 spray in each nostril) Nasally Once a day for 30 day(s) Active Azelastine HCl 137 MCG/SPRAY Nasal for 25 Days Active Social History Tobacco Use: Social History [...] (Standard) Question Answer Notes Tobacco use: Nonsmoker Vital Signs Temperature 97.4 degrees Fahrenheit 06/03/20 24 Blood pressure systolic 124 mm Hg 06/03/20 24 Blood pressure diastolic 84 mm Hg 024 Height 59 in 06/03/2024 Weight 193 lbs 06/03/2024 BMI 38.98 kg/m2 06/03/2024 Encounters Encounter Location Date Provider Diagnosis [facility] [address] [place] [address] 06/03/2024 Debo Patel Encounter for gynecological examination (general) (routine) without abnormal findings Z01.419 ; Encounter for screening mammogram for malignant neoplasm of breast Z12.31 and Acute candidiasis of vulva and vagina B37.31 Assessments Encounter Date Diagnosis (ICD Code) Assessment [...] COTTON UNDERWEAR. AVOID LEGGINGS. Plan Of Treatment Medication Medication Name Sig Start Date Stop Date Notes Terconazole 0.8 % 1 applicatorful at b edtime Vaginal EVERY NIGHT X 3 for 3 days 06/03/2024 Treatment Notes Assessment Notes Encounter for gynecological examination (general) (routine) without abnormal findings NO PAP TEST, DUE IN 2025. Encounter for screening mamm ogram for malignant neoplasm of breast REGULAR MAMMOGRAMS AND SBE'S WERE RECOMMENDED. Acute candidiasis of vulva and vagina DISCUSSED FINDINGS, DX AND TX OPTIONS. PAT IS ON A STATIN AND CANNOT BE TREATED WITH DIFLUCAN. RX AND INSTRUCTIONS FOR TERCONAZOLE CREAM WERE GIVEN. LOOSE WHITE COTTON UNDERWEAR. AVOID LEGGINGS. Pending Test Test Name Order Date MM Digital Mammo Screening 06/03/2024 Next Appt Details Follow Up: 1 Year, Reason: Provider Name:Debo head, 06/10/2025 02:40:00 PM, [facility] [address], [place], [address], Progress Notes * JAIME SÁNCHEZDOB:1970 (54 yo F)Acc No.[id number]:06/03/2024 PROGRESS NOTES Patient:?JAIME SÁNCHEZ Appointment Provider:?Debo head M.D. :1970???Age:54 Y???Sex:Female D ate:06/03/2024 Address:[address] [place], [place] [id number] Pcp:BRITNEY STOREY Subjective: * Chief Complaints: * ???Annual LACQUER SPRAY BOOTH OPERATOR PhysicalAnnual LACQUER SPRAY BOOTH OPERATOR Physical 50-59* * HPI: ???New/Follow-up Patient Consult:? RONAK ENTERED MENOPAUSE AT AGE 45.? SHE CAME IN WITH HER .? THEY HAVE BEEN 15 YEARS AND WERE NOT SEXUALLY ACTIVE DUE TO DYSPAREUNIA.? SHE HAS BEEN TREATED WITH ESTRADIOL CREAM. SHE IS ALSO KNOWN TO HAVE INTERTRIGO WITH RASH UNDER BOTH BREASTS, UNDER HER ABDOMINAL FOLD AND ALONG VULVAR AREA.? SHE WAS TREATED WITH LOTRISONE CREAM AND SHE RESPONDED WELL.? SHE WAS LATER SEEN BY HER PCP AND GIVEN MYCOSTATIN CREAM. SHE HAS A HX OF PCO, CROHN'S DISEASE, ASHTMA, ANKYLOSING SPONDYLITIS AND ARTHRITIS. HER LAST MAMMOGRAM WAS DONE IN SEP 2022 AT [facility].? WE WILL TRY TO GET THE RESULTS. HER LAST PAP TEST IN 2022 WAS NEGATIVE AND HPV NEGATIVE. SHE HAD A COLONOSCOPY DONE IN 2022 AND POLYPS WERE NOTED.? SHE WILL NEED ANOTHER COLONOSCOPY IN 2025. PFIZER X 3. ???Annual:? Patient presents for annual exam, ages 50-59. ?General Health Maintenance:?Current breast complaints:?no breast pain, mass, discharge, or skin changes ?Urinary problems:?patient reports no urinary health problems or bowel health problems ?Calcium intake:?takes adequate calcium via diet and supplementation ?Significant LACQUER SPRAY BOOTH OPERATOR problems:?no significant pattern developer symptoms or problems * ROS:?general:?no?chest pain.?no?palpitations.?no?headache.?no?cough.?no?shortness of breath.?no?fever.?no?unexplained weight loss.?no?nausea/vomiting.?no?change in bowel movements.?no blood in stool.?no?genitourinary complaints.?no?skin complaints.? * Medical History:? * Cooper Apprentice History:?/ Para?0/0.?Sexual activity?currently sexually active.?Last Pap Smear:?05/29/23 NIL, NEG HPV, 01/25/21, NIL, NEG HPV.?Mammogram:?2022.?Abnormal Pap Smear:?Yes.?LMP and menses?Tiki.?Colonoscopy?2022.? * OB History:?Total pregnancies?0.? * Surgical History:?Colonoscop y Breast Biopsy Thyroid Nodule Biopsy * Hospitalization/Major Diagno stic Procedure:?See Surgical Hx * Family History:?Mother: dece ased, Diabetes.?Father: , Unknown.? Grandmother: , Heart Attack, Strokes. * Social History:?Tobacco Use:?Tobacco Control (Standard)?Tobacco use:?Nonsmoker ???Sexual History:?Sexual History?Had sex in the past 12 months (vaginal, oral, or anal)??Yes ?with?Men only ?Prevention strategies discussed:?Other ?Details of Sexual History?Are you sexually active??Yes ???Drugs/Alcohol:?Drugs?Have you used drugs other than those for medical reasons in the past 12 months??No ???Miscellaneous:?Children: no. ?Exercise: yes, occasionally. ?Home smoke detector use: yes. ?Marital status: single. ?Natural support system: yes. 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 ?Sexually active: yes. ???Drug/Alcohol:?AUDIT-C (Standard)?Did you have a drink containing alcohol in the past year??No ?Points?0 ?Interpretation?Negative * Medications:?TakingOmeprazol e 20 MG Capsule Delayed Release 1 capsule Orally Once a day Clotrimazole-Betamethasone 1-0.05 % Cream 1 application to affected area Externally Twice a day Azelastine HCl 137 MCG/SPRAY Solution Nasal Budesonide 32 MCG/ACT Suspension 2 sprays (1 spray in each nostril) Nasally Once a day AZO Cranberry 250-30 MG Tablet as directed Orally Montelukast Sodium 10 MG Tablet Oral Rosuvastatin Calcium 40 MG Tablet Oral LORazepam 0.5 MG Tablet 1 tablet at bedtime as needed Orally Once a day Tylenol 1 tab Oral CoQ-10 50 MG Capsule as directed Orally Advair Diskus 500-50 MCG/ACT Aerosol Powder Breath Activated 1 puff Inhalation Twice a day Nystatin 173998 UNIT/GM Powder 1 application Externally Twice a day Loratadine 10 MG Tablet Oral Mesalamine 400 MG Capsule Delayed Release 1 capsule Oral Twice a day lamoTRIgine 100 MG Tablet Oral Humira Pen 40 MG/0.4ML Pen-injector Kit Subcutaneous Vitamin B-12 1000 MCG Tablet TAKE 1 TABLET BY MOUTH ONCE DAILY Oral Vitamin D3 50 MCG (1999) Tablet TAKE 1 TABLET BY MOUTH ONCE DAILY Oral Docusate Sodium 100 MG Capsule 1 capsule Oral Twice a day Taking Omeprazole 20 MG Capsule Delayed Release 1 capsule Orally Once a day Taking Clotrimazole-Betamethasone 1- 0.05 % Cream 1 application to affected area Externally Twice a day Taking Azelastine HCl 137 MCG/SPRAY Solution Nasal Taking Budesonide 32 MCG/ACT Suspension 2 sprays (1 spray in each nostril) Nasally Once a day Taking AZO Cranberry 250-30 MG Tablet as directed Orally Taking Montelukast Sodium 10 MG Tablet Oral Taking Rosuvastatin Calcium 40 MG Tablet Oral Taking LORazepam 0.5 MG Tablet 1 tablet at bedtime as needed Orally Once a day Taking Tylenol 1 tab Oral Taking CoQ-10 50 MG Capsule as directed Orally Taking Advair Diskus 500-50 MCG/ACT Aerosol Powder Breath Activated 1 puff Inhalation Twice a day Taking Nystatin 004874 UNIT/GM Powder 1 application Externally Twice a day Taking Loratadine 10 MG Tablet Oral Taking Mesalamine 400 MG Capsule Delayed Release 1 capsule Oral Twice a day Taking lamoTRIgine 100 MG Tablet Oral Taking Humira Pen 40 MG/0.4ML Pen-injector Kit Subcutaneous Taking Vitamin B-12 1000 MCG Tablet TAKE 1 TABLET BY MOUTH ONCE DAILY Oral Taking Vitamin D3 50 MCG (1999) Tablet TAKE 1 TABLET BY MOUTH ONCE DAILY Oral Taking Docusate Sodium 100 MG Capsule 1 capsule Oral Twice a day DiscontinuedFish Oil 1000 MG Capsule 1 capsule Orally Once a day Vitamin C 500 MG Capsule as directed Orally tiZANidine HCl 2 MG Tablet 1 tablet as needed Orally Pantoprazole Sodium 40 MG Tablet Delayed Release Oral Estradiol Vaginal Cream 0.01% Cream 1 Gram to the affected area Vaginal/Vulva Twice a week Medication List reviewed and reconciled with the patientDiscontinued Fish Oil 1000 MG Capsule 1 capsule Orally Once a day Discontinued Vitamin C 500 MG Capsule as directed Orally Discontinued tiZANidine HCl 2 MG Tablet 1 tablet as needed Orally Discontinued Pantoprazole Sodium 40 MG Tablet Delayed Release Oral Discontinued Estradiol Vaginal Cream 0.01% Cream 1 Gram to the affected area Vaginal/Vulva Twice a week Medication List reviewed and reconciled with the patient * Allergies:?Ibuprofen: Irrita daniel Crohns - AllergyPenicillin: AllergyBee Sting: AllergySimvastatin: Sick - Allergyno[Allergies Verified] Objective: * Vitals:?Ht: 59 in, Wt:193lbs , BMI:38.98Index, BP:124/84mm Hg, Temp:97.4F. * Examination: ???General Exam: ?CONSTITUTIONAL:?NECK/THYROID:?RESPIRATORY:?Auscultation: clear to auscultation bilaterally, Respiratory Effort: normal.?CARDIOVASCULAR:?Auscultation: regular rate and rhythm.?BREAST, Right:?BREAST, Left:?GASTROINTESTINAL:?MUSCULOSKELETAL:?SKIN:?NEURO/PSYCH:?Genitourinary: ?EXTERNAL GENITALIA:?VAGINA:?BLADDER:?URETHRA:?CERVIX:?UTERUS:?ADNEXA:?ANUS AND PERINEUM:? Assessment: * Assessment: 1.?Encounter for gynecologic al examination (general) (routine) without abnormal findings - Z01.419???2.?Encounter for screening mammogram for malignant neoplasm of breast - Z12.31???3.?Acute candidiasis of vulva and vagina - B37.31??? Plan: * Treatment: ? Value Reference Range ?PH 8.0 * ?PROTEIN Neg * ?GLUCOSE Neg * ?BLOOD Neg * D., PILAR 06/03/2024 03:02:5 5 PM EDT > Notes: NO PAP TEST, DUE IN 2025.??2.?Encounter for screening mammogram for malignant neoplasm of breast?Imaging: MM Digital Mammo Screening Notes: REGULAR MAMMOGRAMS AND SBE'S WERE RECOMMENDED.??3.?Acute candidiasis of vulva and vagina? Start Terconazole Cream, 0.8 %, 1 applicatorful at bedtime, Vaginal, EVERY NIGHT X 3, 3 days, 20 Gram, Refills 11.?? Notes: DISCUSSED FINDINGS, DX AND TX OPTIONS. PAT IS ON A STATIN AND CANNOT BE TREATED WITH DIFLUCAN. RX AND INSTRUCTIONS FOR TERCONAZOLE CREAM WERE GIVEN. LOOSE WHITE COTTON UNDERWEAR. AVOID LEGGINGS.?? * Procedure Codes:? * Preventive Medicine:? ??YOUR PREVENTIVE WELLNESS PLAN:?Osteoporosis prevention?Calcium, D, strength training.?Breast Cancer Screening (Mammogram):?annually.?Cervical Cancer Screening (Pap Smear):?q 3 years with HPV screen.?Colorectal Cancer Screening:?q 10 years.? * Follow Up:?1 Year * Images: Billing Information: * Visit Code:? 31820 Preventive Care New Pt. Age 40-64. 60669 Preventive Care Est Pt. Age 40-64. * Procedure Codes:? * Sign off status: Completed true * Appointment Provider:?Debo Patel M.D. Date:?06/03/2024 Generated for Jasmyn gordon/Linda/Gregorioitting on:?09/16/2024 02:04 PM EST History and Physical Notes * HPI (History of Present Illness) Category Sub-Category Detail Notes Category Not es New/Follow-up Patient Consult RONAK ENTERED MENOPAUSE AT AGE 45. SHE CAME IN WITH HER . THEY HAVE BEEN 15 YEARS AND WERE NOT SEXUALLY ACTIVE DUE TO DYSPAREUNIA. SHE HAS BEEN TREATED WITH ESTRADIOL CREAM. SHE IS ALSO KNOWN TO HAVE INTERTRIGO WITH RASH UNDER BOTH BREASTS, UNDER HER ABDOMINAL FOLD AND ALONG VULVAR AREA. SHE WAS TREATED WITH LOTRISONE CREAM AND SHE RESPONDED WELL. SHE WAS LATER SEEN BY HER PCP AND GIVEN MYCOSTATIN CREAM. SHE HAS A HX OF PCO, CROHN'S DISEASE, ASHTMA, ANKYLOSING SPONDYLITIS AND ARTHRITIS. HER LAST MAMMOGRAM WAS DONE IN SEP 2022 AT [facility]. WE WILL TRY TO GET THE RESULTS. HER LAST PAP TEST IN 2022 WAS NEGATIVE AND HPV NEGATIVE. SHE HAD A COLONOSCOPY DONE IN 2022 AND POLYPS WERE NOTED. SHE WILL NEED ANOTHER COLONOSCOPY IN 2025. PFIZER X 3. Annual General Health Maintenance: Current breast complaints:: no breast pain, mass, discharge, or skin changes Urinary problems:: patient r eports no urinary health problems or bowel health problems Calcium intake:: takes adequ ate calcium via diet and supplementation Significant LACQUER SPRAY BOOTH OPERATOR problems:: n o significant pattern developer symptoms or problems Examination Category Sub-Category Detail Notes Category Not es General Exam CONSTITUTIONAL: General Appearan ce:: alert, in no acute distress, normal, well nourished NECK/THYROID: Thyroid:: normal size and shape Inspection/Palpation:: normal RESPIRATORY: Auscultation: clear to auscultation bilaterally, Respiratory Effort: normal CARDIOVASCULAR: Auscultation: regula r rate and rhythm GASTROINTESTINAL: Hernias:: no hernias present, no inguinal adenopathy Liver and Spleen:: normal Abdomen:: no masses, nontender, nondiste nded MUSCULOSKELETAL: Inspection/Palpation:: no clubb ing, cyanosis, or edema SKIN: Skin:: normal NEURO/PSYCH: Mood/Affect:: normal Orientation:: time , place, person BREAST, Right: Inspection/Palpation :: no discharge, no masses present, no nipple retraction, no skin changes, no skin dimpling, no tenderness, no lymphadenopathy, no axillary mass, no axillary tenderness BREAST, Left: Inspection/Palpation :: no discharge, no masses present, no nipple retraction, no skin changes, no skin dimpling, no tenderness, no lymphadenopathy, no axillary mass, no axillary tenderness Genitourinary EXTERNAL GENITALIA: External Genitalia:: nor mal, no lesions VAGINA: Vagina:: normal appearance, no a bnormal discharge, no lesions BLADDER: Bladder:: no mass, nontender URETHRA: Urethra:: no erythema or lesions present CERVIX: Cervix:: no lesions, nontender UTERUS: Uterus:: nontender, normal conto ur, normal mobility, normal size ADNEXA: Adnexa:: no masses, no tendernes s ANUS AND PERINEUM: Anus/Perineum:: visually norm al
== END 2024-09-16 13:06 | disposition home or self-care (01) ==
PROVIDERS: PCP Family Medicine; Visit Provider Orthopaedic Surgery
DX: M17.12 Unilateral primary osteoarthritis, left knee (principal)
CPT/HCPCS: 20610; 99213

== ENCOUNTER → 2024-09-16 12:40 | Outpatient (BNVA) | payer OTHER, SELFPAY | PROVIDERS: PCP Family Medicine; Visit Provider Orthopaedic Surgery | DX: M17.12 Unilateral primary osteoarthritis, left knee (principal) | CPT/HCPCS: 20610; 99212; J2003; J7318 ==

== ENCOUNTER 2024-09-29 09:41 | Outpatient (AMB) | payer OTHER, SELFPAY ==
--- NOTE | 2024-09-29 09:43 | A.OFFVIS_ITS ---
Intake Visit Reasons: [facility] ER-Recurrent UTI,Dysuria/Frequency Intake Note: Patient is present for [facility] ER- RECURRENT UTI,DYSURIA,FREQUENCY Urology Medication:VITAMIN B12 Antibiotic Allergy:PENICILLIN,SIMVASTATIN Blood Thinner:NONE TODAY'S PVR:0ML'S Screen Cutter And Trimmer Required: No Allergies Penicillins [PENICILLINS] Allergy (Severe, Verified 09/29/24 09:45) ANAPHYLAXIS simvastatin Allergy (Mild, Verified 09/29/24 09:45) weird feeling ibuprofen Adverse Reaction (Intermediate, Verified 09/29/24 09:45) stomach upset, irritates Chrohn's HPI Comments Details: Josselin is a pleasant female. She is a patient of Dr. Ward. She seen for the following urologic conditions - recurrent urinary tract infection UA today negative Taking cranberry caps prevention Recurrent urinary tract infection 2 presentations to [facility] emergency room July and August. Question of pyelonephritis. Background of Crohn's with idiopathic chronic constipation Discussed management of constipation Discussion menopausal symptoms which do include hot flashes however these are tolerable Recommend initiating topical estrogen Follow-up 6 months nurse-practitioner [facility] Medical History Tubular adenoma Chronic idiopathic constipation Crohn disease Unspecified asthma, uncomplicated Dysuria Surgical History Hx of colonoscopy History of esophagogastroduodenoscopy (EGD) No pertinent past surgical history Family History Father Suicide Mother Hypertension Diabetes Paternal Grandmother Stroke Brother In good health Sister In good health Social History Housing: Other Housing Other:: mobile home Alcohol intake: current Alcohol intake frequency: does not drink Patient Tobacco Use Status: Never used Tobacco e-Cigarette/Vaping Use: Never Used Second Hand Smoke Exposure: Yes service: No Current occupational status: disabled Current occupational exposures/hazards: No Cognitive needs: No Hearing needs: No Vision needs: No Review of Systems Const Denies chills and Denies fever(s) Card Reports no additional complaints and Denies syncope Resp Denies cough GI Denies abdominal pain and Denies heartburn Reports as per HPI and Denies change in libido Neuro Denies syncope Psych Denies change in libido Endo Denies change in libido Physical Exam Const General: cooperative, healthy appearing, comfortable and no acute distress Orientation/consciousness: patient oriented x3 HEENT Face and sinus: Yes normal facial exam Mouth: moist mucous membranes Neck Neck: Yes normal visual inspection, Yes full ROM and Yes trachea midline Chest Chest palpation & inspection: normal inspection of the chest Resp Effort & Inspection: normal respiratory effort, able to speak in complete sentences and no respiratory distress GI Inspection: Yes normal to inspection Back/Spine/Pelvis Cervical Spine: normal cervical lordosis Thoracic/Lumbar Spine: thoracic and lumbar spine normal to inspection Skin General skin exam: no rashes or lesions noted Neuro General: patient oriented x3, gait normal, tone normal and moves all extremities Extrem General: Yes normal to inspection and Yes capillary refill normal Office Procedures Post Void Residual Post Residual Void Post Void Residual (PVR): 0 53984-Ifdi Void Residual by ultrasound Results AMB Urinalysis, Automated UA Leukoctes 0 Krystin/uL Last Edit by MEDARDO Lynn on 09/29/24 09:56 UA Nitrite Negative Last Edit by MEDARDO Lynn on 09/29/24 09:56 UA Urobilinogen 0.2 mg/dL Last Edit by MEDARDO Lynn on 09/29/24 09:5 6 UA Protein 0 mg/dL Last Edit by MEDARDO Lynn on 09/29/24 09:56 UA pH 6.0 Last Edit by MEDARDO Lynn on 09/29/24 09:56 UA Blood 0 David/uL Last Edit by MEDARDO Lynn on 09/29/24 09:56 UA Specific [place] 1.010 Last Edit by MEDARDO Lynn on 09/29/24 09: 56 UA Ketone Negative Last Edit by MEDARDO Lynn on 09/29/24 09:56 UA Bilirubin 0 mg/dL Last Edit by MEDARDO Lynn on 09/29/24 09:56 UA Glucose 0 mg/dL Last Edit by MEDARDO Lynn on 09/29/24 09:56 Results Reviewed Results Reviewed: Laboratory Last Values Urine pH (Auto) 6.0 09/29/24 09:55 Specific [place] (Auto) 1.010 09/29/24 09:55 Urine Protein (Auto) 0 mg/dL 09/29/24 09:55 Glucose (UA)(Auto) 0 mg/dL 09/29/24 09:55 Urine Ketones (Auto) Negative 09/29/24 09:55 Urine Blood (Auto) 0 David/uL 09/29/24 09:55 Urine Nitrite (Auto) Negative 09/29/24 09:55 Urine Bilirubin (Auto) 0 mg/dL 09/29/24 09:55 Urine Urobilinogen (Auto) 0.2 mg/dL 09/29/24 09:55 Leukocyte Esterase (Auto) 0 Krystin/uL 09/29/24 09:55 Assessment & Plan Assessment & Plan (1) Dysuria: Code(s): R30.0 - Dysuria Category: Medical (2) Urinary tract infection: Code(s): N39.0 - Urinary tract infection, site not specified Category: Medical Qualifiers: Hematuria presence: with hematuria Urinary tract infection type: acute cystitis Qualified Code(s): N30.01 - Acute cystitis with hematuria (3) Genitourinary syndrome of menopause: Code(s): N95.8 - Other specified menopausal and perimenopausal disorders Category: Medical Plan Start Estrace Orders: Orders AMB Urinalysis Automated Today Z13.9 - Encounter for screening, unspecified Medications: New estradiol 0.01%(0.1mg/gram) Start with application daily for 2 weeks. pea-sized to urethra 3 times a week following 42.5 grams 2RF 30 days N39.0 - Urinary tract infection, site not specified, N95.2 - Postmenopausal atrophic vaginitis, N95.8 - Other specified menopausal and perimenopausal disorders Patient Instructions: This note is constructed using voice recognition software. While every effort has been made to ensure accuracy cycle touring guide errors may have been included. Imaging studies, laboratory and physical exam results were discussed and reviewed in detail. No major barriers to patient understanding were identified. An opportunity to ask questions regarding the treatment plan was provided. All questions were answered. The patient expressed understanding and agreement with the above treatment plan. The patient is aware they should contact our office by phone for worsening of their current condition or the appearance of new urologic symptoms. Compliance is encouraged with any medications and followup testing that is ordered. It is a privilege to participate in the urologic care of your patient. If you have any questions or concerns regarding treatment for the above conditions, or other urologic issues, please do not hesitate to contact me. The office telephone contact is [phone]. Sincerely, Dr Ronnie Finn MD, [facility] - Urology Compassionate Specialist Care for the Genitourinary System Coding Level of Care Code New Pt Level 4 (10285) Diagnoses Dysuria R30.0 Acute cystitis with hematuria N30.01 Hematuria presence: with hematuria Urinary tract infection type: acute cystitis Genitourinary syndrome of menopause N95.8 CPT Codes Post Residual Void - PVR CPT Code: 82152-Abos Void Residual by ultrasound ([id number])
--- OUTSIDE RECORDS SUMMARY | 2024-09-29 10:56 | XMS_ITS | Encounter Summary ---
Author Organization [facility] Address [address] [place] [address] Care Team Providers Care Paperhanger And Painter Name Role Phone Judy Juarez MD Primary Care Provider Norman Jain Primary Care Provider Judy Harris MD Primary Care Provider Judy Swanson MD Primary Care Provider Lisa Mireles MD Primary Care Provider [phone] Judy Juarez MD Primary Care Provider Lisa Mireles MD Primary Care Provider [phone] Encounter Details Date Type Department Care Team Description 03/26/2016 Release of Information Medical Records [address] [place] [address] Abstract, Provider Social History Tobacco Use Types Packs/Day Years Used Date Smoking Tobacco: Never Alcohol Use Standard Drinks/Week Comments No 0 (1 standard drink = 0.6 oz pur e alcohol) Sex Assigned at Date Recorded Not on file Job Start Date Occupation Industry Not on file Not on file Not on file documented as of this encounter Plan of Treatment Not on file documented as of this encounter Visit Diagnoses Not on filedocumented in this encounter Care Teams Paperhanger And Painter Relationship Specialty Start Date End Date Judy Juarez MD PCP - General Internal Medicine 10/12/15 12/02/16 Radhika, Norman PCP - General Internal Medicine 12/03/16 01/13/17 Judy Juarez MD PCP - General Internal Medicine 01/14/17 10/23/20 Judy Juarez MD PCP - General Internal Medicine 10/24/20 11/28/20 Lisa Santos MD [address] [place] [address] PCP - General Internal Medicine 11/29/20 02/12/22 Judy Juarez MD [address] [place] [address] PCP - General Internal Medicine 02/13/22 02/14/22 Lisa Santos MD [address] [place] [address] PCP - General Internal Medicine 02/15/22 documented as of this encounter
--- OUTSIDE RECORDS SUMMARY | 2024-09-29 10:56 | XMS_ITS | Encounter Summary ---
Author Organization [facility] Address [address] [place] [address] Care Team Providers Care Restaurant Lead Name Role Phone Bindu Sanders MD Primary Care Provider Judy Harris MD Primary Care Provider Norman Jain Primary Care Provider Judy Harris MD Primary Care Provider Judy Swanson MD Primary Care Provider Lisa Mireles MD Primary Care Provider [phone] Judy Juarez MD Primary Care Provider Lisa Mireles MD Primary Care Provider [phone] Encounter Details Date Type Department Care Team Description 09/23/2015 Warehouse Processor Report Medical Records [address] [place] [address] Bindu Sanders MD Social History Tobacco Use Types Packs/Day Years Used Date Smoking Tobacco: Never Assessed Sex Assigned at Date Recorded Not on file Job Start Date Occupation Industry Not on file Not on file Not on file documented as of this encounter Plan of Treatment Not on file documented as of this encounter Visit Diagnoses Not on filedocumented in this encounter Care Teams Restaurant Lead Relationship Specialty Start Date End Date Bindu Sanders MD PCP - General Internal Medicine 09/29/15 10/11/15 Judy Juarez MD PCP - General Internal Medicine 10/12/15 12/02/16 Radhika, Pcp PCP - General Internal Medicine 12/03/16 01/13/17 Judy Juarez MD PCP - General Internal Medicine 01/14/17 10/23/20 Judy Juarez MD PCP - General Internal Medicine 10/24/20 11/28/20 Lisa Santos MD [address] [place] [address] PCP - General Internal Medicine 11/29/20 02/12/22 Judy Juarez MD [address] [place] [address] PCP - General Internal Medicine 02/13/22 02/14/22 Lisa Santos MD [address] [place] [address] PCP - General Internal Medicine 02/15/22 documented as of this encounter
--- OUTSIDE RECORDS SUMMARY | 2024-09-29 10:56 | XMS_ITS | Encounter Summary ---
Author Organization [facility] Address [address] [place] [address] Care Team Providers Care Batch Roller Operator Name Role Phone Lisa Santos MD Primary Care Provider [phone] Reason for Visit * Imaging (Routine) - Closed Specialty Diagnoses / Procedures Referred By Joey hunt Referred To Contact Radiology Diagnoses Encounter for screening mammogram for breast cancer Procedures MG Mammo Digital Screening w Carlos Eduardo bilat MG Mammo Digital Screening w Carlos Eduardo bilat Lisa Santos MD [address] [place] [address] Phone: tel: fax: [facility] Referral ID Status Reason Start Date Expiration Date Visits Re quested Visits Authorized [id number] Closed 05/21/2024 05/21/2025 1 1 Encounter Details Date Type Department Care Team (Latest Contact Info) Description 09/02/2024 2:07 PM EST - 09/02/2024 11:59 PM EST Hospital Encounter Radiology Department - [address] [address] Encounter for screening mammogram for breast cancer [...] (one) time each day. 11/06/2021 sodium chloride ([address] Saline) 0.65 % nasal drops 3 Drops [...] is recommended in 1 year. MAMMO LOCATION: [facility], [address] [place] [address], [address], . -------- FINAL REPORT -------- Dictated By: Roselyn Martinez Dictated Date: 09/03/2024 08:19 ET Assigned Physician: Roselyn Martinez Reviewed and Electronically Signed By: Roselyn Martinez Signed Date: 09/03/2024 08:24 ET Workstation ID: [id number] Transcribed By: Self Edit Transcribed Date: 09/03/2024 [...] is recommended in 1 year. MAMMO LOCATION: [facility], [address] [place] [address], [address], . -------- FINAL REPORT -------- Dictated By: Roselyn Martinez Dictated Date: 09/03/2024 08:19 ET Assigned Physician: Roselyn Martinez Reviewed and Electronically Signed By: Roselyn Martinez Signed Date: 09/03/2024 08:24 ET Workstation ID: [id number] Transcribed By: Self Edit Transcribed Date: 09/03/2024 08:19 ET Lisa Santos MD IMG BI PROCEDURES Final Result documented in this encounter Visit Diagnoses Diagnosis Encounter for screening mammogram for breast cancer documented in this encounter Care Teams Batch Roller Operator Relationship Specialty Start Date End Date Lisa Santos MD [address] [place] [address] PCP - General Internal Medicine 02/15/22 documented as of this encounter
--- OUTSIDE RECORDS SUMMARY | 2024-09-29 10:56 | XMS_ITS ---
Author Organization [facility] Address [address] [facility] [address] [place] [address] Care Team Providers Care Shooter Helper Name Role Phone BRITNEY STOREY Primary Care Provider UnavailDebo Alford Unavailable [phone] REASON FOR VISIT YEAST INFECTION Encounters Encounter Location Date Provider Diagnosis [facility] [address] [facility] [address] [place] [address] 07/30/2024 Debo Patel Plan Of Treatment Next Appt Details Provider Name:Debo head, 06/10/2025 02:40:00 PM, [address] [facility], [address], [place], [address], Progress Notes * GONZALOTROY GruberBaldoDOB:1970 (54 yo F)Acc No.[id number]:07/30/2024 Patient:?JAIME SÁNCHEZ :1970???Age:54 Y???Sex:Female Address:[address] [place] [address], [address] * true * Date:? Generated for Printi evan/Linda/eTransmitting on:?09/29/2024 10:56 AM EST
--- OUTSIDE RECORDS SUMMARY | 2024-09-29 10:57 | XMS_ITS ---
Author Organization [facility] Address [address] [address] Care Team Providers Care Rivet Driver Name Role Phone BRITNEY STOREY Primary Care Provider Unavailab Debo Seymour Unavailable [phone] REASON FOR VISIT ULTRA - BLOATING PAIN Encounters Encounter Location Date Provider Diagnosis [facility] [address] [place] [address] 06/19/2024 Debo Patel Plan Of Treatment Next Appt Details Provider Name:Debo head, 06/10/2025 02:40:00 PM, [address] [facility], [address], [place], [address], Progress Notes * TROY SÁNCHEZBaldoDOB:1970 (54 yo F)Acc No.[id number]:06/19/2024 PROGRESS NOTES Patient:?JAIME SÁNCHEZ Appointment Provider:?Debo head M.D. :1970???Age:54 Y???Sex:Female D ate:06/19/2024 Address:[address] [place], [place] [id number] Pcp:BRITNEY STOREY Subjective: * Chief Complaints: * ???1. ULTRA - BLOATING PAIN. * Medical History:? Objective: * Vitals:? Assessment: Plan: * Treatment: * Images: Billing Information: * Visit Code:? * Procedure Codes:? * Electronic signature of Mary Patel MD on 09/29/2024 at 10:57 AM EST Sign off status: Pending * Appointment Provider:?Debo Patel M.D. Date:?06/19/2024 Generated for Jasmyn gordon/Linda/Fredrick on:?09/29/2024 10:57 AM EST
--- OUTSIDE RECORDS SUMMARY | 2024-09-29 10:57 | XMS_ITS | Patient Health Record ---
Author Organization [facility] Address [address] [facility] [address] [place] [address] Care Team Providers Care Machine Precision Etcher Name Role Phone BRITNEY STOREY Primary Care Provider Unavailab Debo Seymour Unavailable [phone] Allergies Allergen (clinical drug ingredient) Drug/Non Drug [...] a day for 30 day(s) Active Nystatin 764765 UNIT/GM 1 application Ex ternally Twice a [...] Status W/U Status Risk Notes Problem Menopause (815871167) Menopausal and female climacteric states (N95.1) Active confirmed Problem Postmenopausal atrophic vaginitis (16948666) Postmenopausal atrophic vaginitis (N95.2) Active confirmed Problem Polycystic ovarian syndrome (E28.2) Active confirmed Problem Morbid obesity (disorder) (161099157) Morbid (severe) obesity due to excess calories (E66.01) Active confirmed Problem Hyperlipidemia (74361715) Hyperlipidemia, unspecified (E78.5) Active confirmed Problem Recurrent depression (998206865) Other recurrent depressive disorders (F33.8) Active confirmed Problem Anxiety disorder (517949466) Anxiety disorder, unspecified (F41.9) Active confirmed Problem Vitreous opacities (970566473) Other vitreous opacities, unspecified eye (H43.399) Active confirmed Problem Asthma (722943857) Other asthma (J45.998) Active confirmed Problem Crohn's disease (09068697) Crohn's disease, unspecified, with unspecified complications (K50.919) Active confirmed Problem Fatty liver (881055512) Fatty (change of) liver, not elsewhere classified (K76.0) Active confirmed Problem Ankylosing spondylitis (2209606) Ankylosing spondylitis of unspecified sites in spine (M45.9) Active confirmed Problem Gastroesophageal reflux disease with esophagitis (disorder) (264257051) Gastro-esophageal reflux disease with esophagitis, without bleeding (K21.00) Active confirmed Vital Signs Temperature 97.4 degrees Fahrenheit 06/03/2024 Blood pressure diastolic 84 mm Hg 06/03/2024 Height 59 in 06/03/2024 Blood pressure systolic 124 mm Hg 06/03/2024 Weight 193 lbs 06/03/2024 BMI 38.98 kg/m2 06/03/2024 Encounters Encounter Location Date Provider Diagnosis [place] [address] [facility] [employer] [address] [address] 06/19/2024 Debo Patel [address] [address] 06/03/2024 Debo Patel Encounter for gynecological examination (general) (routine) without abnormal findings Z01.419 ; Encounter for screening mammogram for malignant neoplasm of breast Z12.31 and Acute candidiasis of vulva and vagina B37.31 [facility] [address] [address] 10/10/2023 Debo Patel [address] [address] 07/30/2024 Debo Patel Assessments Encounter Date Diagnosis [...] Provider Name:Debo head, 06/10/2025 02:40:00 PM, [address] [facility], [address], [place], [address], Insurance Providers Payer Name Payer Address Payer Phone Subscriber Number Group Number Insured Name Patient Relationship to Insured Coverage Start Date Coverage End Date [address] [id number] JAIME SÁNCHEZ Self - patient is the [...]
--- OUTSIDE RECORDS SUMMARY | 2024-09-29 10:57 | XMS_ITS | Encounter Summary ---
Author Organization [facility] Address [address] [place] [address] Care Team Providers Care Tallow Refiner Name Role Phone Judy Juarez MD Primary Care Provider Judy Swanson MD Primary Care Provider Lisa Mireles MD Primary Care Provider [phone] Judy Juarez MD Primary Care Provider Lisa Mireles MD Primary Care Provider [phone] Encounter Details Date Type Department Care Team Description 08/26/2017 [facility] Medical Records [address] [place] [address] Social History Tobacco Use Types Packs/Day Years [...] on filedocumented in this encounter Care Teams Tallow Refiner Relationship Specialty Start Date End Date Judy Juarez MD PCP - General Internal Medicine 01/14/17 10/23/20 Judy Juarez MD PCP - General Internal Medicine 10/24/20 11/28/20 Lisa Santos MD [address] [place] [address] PCP - General Internal Medicine 11/29/20 02/12/22 Judy Juarez MD [address] [place] [address] PCP - General Internal Medicine 02/13/22 02/14/22 Lisa Santos MD [address] [place] [address] PCP - General Internal Medicine 02/15/22 documented as of this encounter
--- OUTSIDE RECORDS SUMMARY | 2024-09-29 10:57 | XMS_ITS | Encounter Summary ---
Author Organization [facility] Address [address] [place] [address] Care Team Providers Care Tour Agent Name Role Phone Judy Juarez MD Primary Care Provider Naresh Garrido Pcp Primary Care Provider Judy Harris MD Primary Care Provider Judy Swanson MD Primary Care Provider UnavailLisa Cosby MD Primary Care Provider [phone] Judy Juarez MD Primary Care Provider Lisa Mireles MD Primary Care Provider [phone] Reason for Visit * Reason Onset Date Comments TEST RESULTS 11/28/2015 Encounter Details Date Type Department Care Team Description 11/28/2015 Telephone Medicine/Pediatrics - [address] [phone] Judy Juarez MD TEST RESULTS Social History Tobacco Use Types Packs/Day Years Used Date Smoking Tobacco: Never Alcohol Use Standard Drinks/Week Comments Not Asked 0 (1 standard drink = 0.6 oz pur e alcohol) Sex Assigned at Date Recorded Not on file Job Start Date Occupation Industry Not on file Not on file Not on file documented as of this encounter Miscellaneous Notes * Telephone Encounter - Janet Sawyer L.P.N. - 11/28/2015 4:18 PM EDT Please tell Taylor her vitamin D and iron are low. I will send vitamin D 50,000 iu cap (to pharmacy) for her to take once weekly for 12 weeks. She should start to take 2000iu over the counter daily thereafter. Her iron is also low. She should start iron tablets (which she can take preferably 2 times daily). Make sure she takes a stool softenor (senna, colace over th counter) while she is taking iron. Her cholesterol is close to normal. I will send a lab letter ------ Pt notified as written above * Telephone Encounter - Kayla Hermosillo - 11/28/2015 4:06 PM EDT Inform patient: ANY URGENT OR ABNORMAL RESULTS WIILL RESULT IN A CALL BACK TO THE PATIENT JAI. Type of test: :labs Date test was performed: 11/24/15 Where was the test performed: [email or web address] Who ordered this test?: Dinah Ortiz Is the doctor here today?: yes Can the message wait until the doctor returns?: NO IF PATIENT'S PCP IS NOT IN INSTRUCT PATIENT THAT THEY WILL RECEIVE A CALL BACK WHEN THE PCP IS IN THE OFFICE NEXT. documented in this encounter Plan of Treatment Not on file documented as of this encounter Visit Diagnoses Not on filedocumented in this encounter Care Teams Tour Agent Relationship Specialty Start Date End Date Judy Juarez MD PCP - General Internal Medicine 10/12/15 12/02/16 [facility] PCP - General Internal Medicine 12/03/16 01/13/17 Judy Juarez MD PCP - General Internal Medicine 01/14/17 10/23/20 Judy Juarez MD PCP - General Internal Medicine 10/24/20 11/28/20 Lisa Santos MD [address] [place] [address] PCP - General Internal Medicine 11/29/20 02/12/22 Judy Juarez MD [address] [place] [address] PCP - General Internal Medicine 02/13/22 02/14/22 Lisa Santos MD [address] [place] [address] PCP - General Internal Medicine 02/15/22 documented as of this encounter
--- OUTSIDE RECORDS SUMMARY | 2024-09-29 10:57 | XMS_ITS | Encounter Summary ---
Author Organization [facility] Address [address] [place] [address] Care Team Providers Care Production Control Expediter Name Role Phone Lisa Santos MD Primary Care Provider [phone] Judy Juarez MD Primary Care Provider [facility] Lisa Collazo MD Primary Care Provider [phone] Reason for Visit * Reason Comments E-prescribe Rx Request Encounter Details Date Type Department Care Team Description 12/06/2020 Refill Gastroenterology - [place] 175 [facility] [address] [place] [address] Kain Carolina PA-C [address] [address] E-prescribe Rx Request Social History Tobacco Use Types Packs/Day Years Used Date Smoking Tobacco: Never Smokeless Tobacco: Never Alcohol Use Standard Drinks/Week Comments No 0 (1 standard drink = 0.6 oz pur e alcohol) Sex Assigned at Date Recorded Not on file Job Start Date Occupation Industry Not on file Not on file Not on file COVID-19 Exposure Response Date Recorded In the last month, have you been in contact with someone who was confirmed or suspected to have Coronavirus / COVID-19? No / Unsure 12/06/2020 10:15 AM EDT documented as of this encounter Plan of Treatment Not on file documented as of this encounter Visit Diagnoses Not on filedocumented in this encounter Care Teams Production Control Expediter Relationship Specialty Start Date End Date Lisa Santos MD [address] [place] [address] PCP - General Internal Medicine 11/29/20 02/12/22 Judy Juarez MD [address] [place] [address] PCP - General Internal Medicine 02/13/22 02/14/22 Lisa Santos MD [address] [place] [address] PCP - General Internal Medicine 02/15/22 documented as of this encounter
--- OUTSIDE RECORDS SUMMARY | 2024-09-29 10:57 | XMS_ITS | Encounter Summary ---
Author Organization [facility] Address [address] [place] [address] Care Team Providers Care Go Cart Mechanic Name Role Phone Judy Juarez MD Primary Care Provider Judy Swanson MD Primary Care Provider Lisa Mireles MD Primary Care Provider [phone] Judy Juarez MD Primary Care Provider Lisa Mireles MD Primary Care Provider [phone] Encounter Details Date Type Department Care Team Description 01/27/2018 International Freight Forwarder Report Medical Records [address] [place] [address] Ravi Lozano MD Social History Tobacco Use Types Packs/Day [...] on filedocumented in this encounter Care Teams Go Cart Mechanic Relationship Specialty Start Date End Date Judy Juarez MD PCP - General Internal Medicine 01/14/17 10/23/20 Judy Juarez MD PCP - General Internal Medicine 10/24/20 11/28/20 Lisa Santos MD [address] [place] [address] PCP - General Internal Medicine 11/29/20 02/12/22 Judy Juarez MD [address] [place] [address] PCP - General Internal Medicine 02/13/22 02/14/22 Lisa Santos MD [address] [place] [address] PCP - General Internal Medicine 02/15/22 documented as of this encounter
--- OUTSIDE RECORDS SUMMARY | 2024-09-29 10:57 | XMS_ITS | Encounter Summary ---
Author Organization [facility] Address [address] [place] [address] Care Team Providers Care Turnaround Planner Name Role Phone Judy Juarez MD Primary Care Provider Judy Swanson MD Primary Care Provider Lisa Mireles MD Primary Care Provider [phone] Judy Juarez MD Primary Care Provider Lisa Mireles MD Primary Care Provider [phone] Encounter Details Date Type Department Care Team Description 05/25/2019 Telephone Rheumatology - [address] [address] Jonathan Mckay MD Social History Tobacco Use Types Packs/Day [...] encounter Miscellaneous Notes * Telephone Encounter - Jonathan Mckay MD - 05/25/2019 6:23 PM EDT Phone call to patient: To clarify the situation I did call the patient. She indicates the eye doctor thought this was iritis related to her ankylosing spondylitis. In that case she should certainly restart the Humira as itis likely to be helpful for this condition. He seems to understand this and said she would restart the Humira. Dr. Mckay * Telephone Encounter - Bre Leroy L.P.N. - 05/25/2019 10:38 AM EDT She has an inflamed iris... She was given eye drops to keep the eye dilated as she has an area she says that must stay dilated to heal... She will hold the Humira * Telephone Encounter - Jonathan Mckay MD - 05/25/2019 10:00 AM EDT Alayna What did the eye doctor conclude? I would continue to hold the Humira until symptoms are a bit better Dr. Mckay * Telephone Encounter - Bre Leroy L.P.N. - 05/25/2019 9:33 AM EDT She has been having problems with her eyes and her sinuses... She was seen 05/20... She is not on antibiotics at this time. She says she was given eye drops and a nasal inhaler. She has not taken herHumira in a no and a half. She is not sure what to do with the Humira and was asking if she should be seen again? See note from 05/20... Please advise documented in this encounter Plan of Treatment Not on file documented as of this encounter Visit Diagnoses Not on filedocumented in this encounter Care Teams Turnaround Planner Relationship Specialty Start Date End Date Judy Juarez MD PCP - General Internal Medicine 01/14/17 10/23/20 Judy Juarez MD PCP - General Internal Medicine 10/24/20 11/28/20 Lisa Santos MD [address] [place] [address] PCP - General Internal Medicine 11/29/20 02/12/22 Judy Juarez MD [address] [place] [address] PCP - General Internal Medicine 02/13/22 02/14/22 Lisa Santos MD [address] [place] [address] PCP - General Internal Medicine 02/15/22 documented as of this encounter
--- OUTSIDE RECORDS SUMMARY | 2024-09-29 10:57 | XMS_ITS | Encounter Summary ---
Author Organization [facility] Address [address] [place] [address] Care Team Providers Care Car Body Inspector Name Role Phone Judy Juarez MD Primary Care Provider Norman Jain Primary Care Provider Judy Harris MD Primary Care Provider Judy Swanson MD Primary Care Provider Lisa Mireles MD Primary Care Provider [phone] Judy Juarez MD Primary Care Provider Lisa Mireles MD Primary Care Provider [phone] Encounter Details Date Type Department Care Team Description 10/25/2015 Release of Information Medical Records [address] [place] [address] Abstract, Provider Social History Tobacco Use Types [...] on filedocumented in this encounter Care Teams Car Body Inspector Relationship Specialty Start Date End Date Judy Juarez MD PCP - General Internal Medicine 10/12/15 12/02/16 Radhika, Pcp PCP - General Internal Medicine 12/03/16 01/13/17 Judy Juarez MD PCP - General Internal Medicine 01/14/17 10/23/20 Judy Juarez MD PCP - General Internal Medicine 10/24/20 11/28/20 Lsia Santos MD [address] [place] [address] PCP - General Internal Medicine 11/29/20 02/12/22 Judy Juarez MD [address] [place] [address] PCP - General Internal Medicine 02/13/22 02/14/22 Lisa Santos MD [address] [place] [address] PCP - General Internal Medicine 02/15/22 documented as of this encounter
--- OUTSIDE RECORDS SUMMARY | 2024-09-29 10:57 | XMS_ITS | Clinical Summary ---
Author Organization [facility] [address] [place] [address] [place] [phone] Phone Care Team Providers Care Graphite Grinder Name Role Phone Lisa Santos MD Primary Care Provider [phone] Allergies Active Allergy Reactions Criticality Noted Date [...] time each day. 2 Active sodium chloride (Jackson Saline) 0.65 % nasal drops 3 Drops [...] Fracture of lumbar spine 08/05/2017 Overview (08/07/2024): Amcario fracture Sternal fracture 08/05/2017 Fracture of rib of left side 08/05/2017 Overview (08/07/2024): Left 7th and 8th fracture Lung nodules 05/05/2016 Overview (08/07/2024): on imaging at [place], followed by Dr. Gaytan. CAT scan 04/23/17: [...] PM EST Hospital Encounter Radiology Department - [address] [address] Encounter for screening mammogram for breast cancer [...] ascending colitis on bxy ESOPHAGOGASTRODUODENOSCOPY 09/12/2015 PROCEDURE: [place] ESOPHAGOGASTRODUODENOSCOPY TRANSORAL DIAGNOSTIC; COMMENT: Normal with nl duodenal, antral and GE junction bxys BREAST BIOPSY 06/25/2018 Left PROCEDURE: BX BREAST; PERC NEEDLE CORE W/IMAG GUID; COMMENT: BENIGN FIBROADENOMATOUS CHANGES. OTHER SURGICAL HISTORY 02/2021 PROCEDURE: MAMMOGRAM, SCREENING, BOTH BREASTS Medical History Medical History Date Comments Depression with anxiety 10/06/2015 DX:Depre ssion with anxiety; COMMENT: [facility] - therapist Khushi, tries to see her once in a week Hypercholesteremia 10/06/2015 DX:Hyperchole steremia Asthma 10/06/2015 DX:Asthma; COMME NT: Dr. Gaytan Ulcerative colitis ([facility]/HCC) DX: Ulcerative colitis (HCC); COMMENT: Dr. Baez Ankylosing spondylitis ([facility]) DX:Ankylosing spondylitis (HCC); COMMENT: Dr. 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 MAMMO LOCATION: [facility], [address] [place] [address], [address], . -------- FINAL REPORT -------- Dictated By: Roselyn Martinez Dictated Date: 09/03/2024 08:19 ET Assigned Physician: Roselyn Martinez Reviewed and Electronically Signed By: Roselyn Martinez Signed Date: 09/03/2024 08:24 ET Workstation ID: [id number] Transcribed By: Self Edit Transcribed Date: 09/03/2024 [...] is recommended in 1 year. MAMMO LOCATION: [facility], [address] [place] [address], [address], . -------- FINAL REPORT -------- Dictated By: Roselyn Martinez Dictated Date: 09/03/2024 08:19 ET Assigned Physician: Roselyn Martinez Reviewed and Electronically Signed By: Roselyn Martinez Signed Date: 09/03/2024 08:24 ET Workstation ID: [id number] Transcribed By: Self Edit Transcribed Date: 09/03/2024 08:19 ET Result [facility] Lisa Santos MD IMG BI PROCEDURES Final Result * Annual BMP Blood Test (12/06/2020) [facility] Annual BMP Blood Test abstracted Result [facility] Provider HEALTH MAINTENANCE Final Result * Hepatitis C Screening (12/06/2020) [facility] Hepatitis C Screening abstracted Result [facility] Provider HEALTH MAINTENANCE Final Result * (ABNORMAL) Lipid panel (08/21/2019) [facility] LDL/HDL Ratio 4 0 - 4 Triglycerides 186(A) 0 - 150 mg/dL Cholesterol 198 0 - 200 mg/dL HDL 56 >=40 mg/dL LDL Cholesterol 105(A) 0 - 100 mg/dL Blood Venous blood specimen / Unknown Result [facility] Provider LAB BLOOD ORDERABLES Micaela l Result * HIV Screening (01/10/2018) [facility] HIV Screening abstracted Historical Provider HEALTH MAINTENANCE Final Result * Cervical Cancer Screening: HPV (12/12/2015) [facility] Cervical Cancer Screening: HPV abstracted, negative [facility] Provider HEALTH MAINTENANCE Final Result * Colonoscopy (09/12/2015) [facility] Colonoscopy no interpretation , abstracted Anatomical Region Laterality Modality Other [facility] Provider HEALTH MAINTENANCE Final Result from Last 3 Months or Most Recently Relevant to Health Maintenance Insurance [employer] MEDICARE Member Subscriber Plan / Payer (Ef fective 2016-Present) Name:Josselin Harrington Relation to Subscriber:Self Name:Josselin Harrington Payer ID:[id number] Group ID:[id number] Type:Not on file Address: [place] [address] [address] [address] Care Teams Graphite Grinder Relationship Specialty Start Date End Date Lisa Santos MD [address] [place] [address] PCP - General Internal Medicine 02/15/22
--- OUTSIDE RECORDS SUMMARY | 2024-09-29 10:57 | XMS_ITS | Encounter Summary ---
Author Organization [facility] Address [address] [place] [address] Care Team Providers Care Technical Training Instructor Name Role Phone Judy Juarez MD Primary Care Provider Norman Jain Primary Care Provider Judy Harris MD Primary Care Provider Judy Swanson MD Primary Care Provider Lisa Mireles MD Primary Care Provider [phone] Judy Juarez MD Primary Care Provider Lisa Mireles MD Primary Care Provider [phone] Encounter Details Date Type Department Care Team Description 10/28/2015 UTILITY APPRAISER/[facility] Report Medical Records [address] [place] [address] Abstract, Provider Social History Tobacco Use Types [...] on filedocumented in this encounter Care Teams Technical Training Instructor Relationship Specialty Start Date End Date Judy Juarez MD PCP - General Internal Medicine 10/12/15 12/02/16 Radhika, Norman PCP - General Internal Medicine 12/03/16 01/13/17 Judy Juarez MD PCP - General Internal Medicine 01/14/17 10/23/20 Judy Juarez MD PCP - General Internal Medicine 10/24/20 11/28/20 Lisa Santos MD [address] [place] [address] PCP - General Internal Medicine 11/29/20 02/12/22 Judy Juarez MD [address] [place] [address] PCP - General Internal Medicine 02/13/22 02/14/22 Lisa Santos MD [address] [place] [address] PCP - General Internal Medicine 02/15/22 documented as of this encounter
--- OUTSIDE RECORDS SUMMARY | 2024-09-29 10:57 | XMS_ITS | Encounter Summary ---
Author Organization [facility] Address [address] [place] [address] Care Team Providers Care Mail Delivery Supervisor Name Role Phone Judy Juarez MD Primary Care Provider Judy Swanson MD Primary Care Provider Lisa Mireles MD Primary Care Provider [phone] Judy Juarez MD Primary Care Provider Lisa Mireles MD Primary Care Provider [phone] Encounter Details Date Type Department Care Team Description 08/30/2017 [facility] Medical Records [address] [place] [address] Social History Tobacco Use Types Packs/Day Years [...] on filedocumented in this encounter Care Teams Mail Delivery Supervisor Relationship Specialty Start Date End Date Judy Juarez MD PCP - General Internal Medicine 01/14/17 10/23/20 Judy Juarez MD PCP - General Internal Medicine 10/24/20 11/28/20 Lisa Santos MD [address] [place] [address] PCP - General Internal Medicine 11/29/20 02/12/22 Judy Juarez MD [address] [place] [address] PCP - General Internal Medicine 02/13/22 02/14/22 Lisa Santos MD [address] [place] [address] PCP - General Internal Medicine 02/15/22 documented as of this encounter
--- OUTSIDE RECORDS SUMMARY | 2024-09-29 10:57 | XMS_ITS | Encounter Summary ---
Author Organization [facility] Address [address] [place] [address] Care Team Providers Care Freight Flagman Name Role Phone Judy Juarez MD Primary Care Provider Judy Swanson MD Primary Care Provider Lisa Mireles MD Primary Care Provider [phone] Judy Juarez MD Primary Care Provider Lisa Mireles MD Primary Care Provider [phone] Encounter Details Date Type Department Care Team Description 04/22/2017 Transfer Records Medical Records [address] [place] [address] Abstract, Provider Social History Tobacco Use Types [...] on filedocumented in this encounter Care Teams Freight Flagman Relationship Specialty Start Date End Date Judy Juarez MD PCP - General Internal Medicine 01/14/17 10/23/20 Judy Juarez MD PCP - General Internal Medicine 10/24/20 11/28/20 Lisa Santos MD [address] [place] [address] PCP - General Internal Medicine 11/29/20 02/12/22 Judy Juarez MD [address] [place] [address] PCP - General Internal Medicine 02/13/22 02/14/22 Lisa Santos MD [address] [place] [address] PCP - General Internal Medicine 02/15/22 documented as of this encounter
--- OUTSIDE RECORDS SUMMARY | 2024-09-29 10:57 | XMS_ITS | Encounter Summary ---
Author Organization [facility] Address [address] [place] [address] Care Team Providers Care Fibrous Wallboard Inspector Name Role Phone Judy Juarez MD Primary Care Provider Judy Swanson MD Primary Care Provider Lisa Mireles MD Primary Care Provider Judy Juarez MD Primary Care Provider Lisa Mireles MD Primary Care Provider [phone] Encounter Details Date Type Department Care Team Description 08/27/2017 Hospital Medical Records [address] [place] [address] Gerber Murillo MD Social History Tobacco Use Types Packs/Day [...] on filedocumented in this encounter Care Teams Fibrous Wallboard Inspector Relationship Specialty Start Date End Date Judy Juarez MD PCP - General Internal Medicine 01/14/17 10/23/20 Judy Juarez MD PCP - General Internal Medicine 10/24/20 11/28/20 Lisa Santos MD [address] [place] [phone] PCP - General Internal Medicine 11/29/20 02/12/22 Judy Juarez MD [address] [place] [address] PCP - General Internal Medicine 02/13/22 02/14/22 Lisa Santos MD [address] [place] [address] PCP - General Internal Medicine 02/15/22 documented as of this encounter
--- OUTSIDE RECORDS SUMMARY | 2024-09-29 10:57 | XMS_ITS | Encounter Summary ---
Author Organization [facility] Address [address] [place] [address] Care Team Providers Care Dispatch Associate Name Role Phone Judy Juarez MD Primary Care Provider Judy Swanson MD Primary Care Provider Lisa Mireles MD Primary Care Provider [phone] Judy Juarez MD Primary Care Provider Lisa Mireles MD Primary Care Provider [phone] Reason for Visit * Reason Onset Date Comments refill request 08/18/2019 Encounter Details Date Type Department Care Team Description 08/18/2019 Refill Gastroenterology - [address] [place] [address] Ruma Tinajero MD refill request Social History Tobacco Use Types Packs/Day Years [...] encounter Miscellaneous Notes * Telephone Encounter - Mireya Greenwood M.A. - 08/20/2019 2:10 PM EST Mesalamine 1.2g EC tablet * Telephone Encounter - Mireya Greenwood M.A. - 08/18/2019 1:13 PM EST Called PT , left a VM to call the office * Telephone Encounter - Mireya Greenwood M.A. - 08/18/2019 1:05 PM EST Covering Provider Fro Lior Spence 1.2 G EC Tab * Telephone Encounter - Lilliana Morton - 08/18/2019 12:19 PM EST Patient would like script to be: E-PRESCRIBED/FAXED TO PHARMACY When was the patients last office visit in Adult Medicine?: last seen by Dr. rod When was the last time the patient saw their PCP? Does patient have an upcoming appointment? Yes 08/19/2019 (THE MEDICATION IS NOT ON THE MED LIST AND IS IDENTIFIED BELOW): {MED LIST:44972) Med name: mesalamine Dosage: 1.2 g # of tablets: Local pharmacy with request for 30 -day supply Instructions: Take two daily Did you check the pharmacy information above?: YES Patients current insurance carrier: Payor: [facility] M[facility] / Plan: [facility] / Product Type: HMO Ilf-[id number] documented in this encounter Plan of Treatment Not on file documented as of this encounter Visit Diagnoses Not on filedocumented in this encounter Care Teams Dispatch Associate Relationship Specialty Start Date End Date Judy Juarez MD PCP - General Internal Medicine 01/14/17 10/23/20 Judy Juarez MD PCP - General Internal Medicine 10/24/20 11/28/20 Lisa Santos MD [address] [place] [address] PCP - General Internal Medicine 11/29/20 02/12/22 Judy Juarez MD [address] [place] [address] PCP - General Internal Medicine 02/13/22 02/14/22 Lisa Santos MD [address] [place] [address] PCP - General Internal Medicine 02/15/22 documented as of this encounter
--- OUTSIDE RECORDS SUMMARY | 2024-09-29 10:57 | XMS_ITS | Encounter Summary ---
Author Organization [facility] Address [address] [place] [address] Care Team Providers Care Organ Installer Name Role Phone Judy Juarez MD Primary Care Provider Judy Swanson MD Primary Care Provider Lisa Mireles MD Primary Care Provider [phone] Judy Juarez MD Primary Care Provider Lisa Mireles MD Primary Care Provider [phone] Encounter Details Date Type Department Care Team Description 04/02/2019 Signs Sales Representative Report Medical Records [address] [place] [address] [facility] Social History Tobacco Use Types Packs/Day Years [...] on filedocumented in this encounter Care Teams Organ Installer Relationship Specialty Start Date End Date Judy Juarez MD PCP - General Internal Medicine 01/14/17 10/23/20 Judy Juarez MD PCP - General Internal Medicine 10/24/20 11/28/20 Lisa Santos MD [address] [place] [id number] PCP - General Internal Medicine 11/29/20 02/12/22 Judy Juarez MD [address] [place] [address] PCP - General Internal Medicine 02/13/22 02/14/22 Lisa Santos MD [address] [place] [address] PCP - General Internal Medicine 02/15/22 documented as of this encounter
--- OUTSIDE RECORDS SUMMARY | 2024-09-29 10:57 | XMS_ITS | Encounter Summary ---
Author Organization [facility] Address [address] [place] [address] Care Team Providers Care Change Management Consultant Name Role Phone Judy Juarez MD Primary Care Provider Judy Swanson MD Primary Care Provider Lisa Mireles MD Primary Care Provider [phone] Judy Juarez MD Primary Care Provider Lisa Mireles MD Primary Care Provider [phone] Reason for Visit * Reason Onset Date Comments Provider Call Back 01/14/2020 Encounter Details Date Type Department Care Team Description 01/14/2020 Telephone Gastroenterology - [place] [address] [address] Kain Carolina PA-C [address] [place] [address] Provider Call Back Social History Tobacco Use Types Packs/Day Years [...] encounter Miscellaneous Notes * Telephone Encounter - Bhavya Becerril M.A. - 01/14/2020 1:43 PM EDT Spoke with the pt about lab results. Lab results are mailed to pt's residency * Telephone Encounter - Debo Villagran - 01/14/2020 12:34 PM EDT Caller requesting call back from provider: Is the caller the patient? YES If caller is not the patient, what is the callers name? N/A Callers relationship to patient? N/A If person calling is not the patient themselves, is there a verbal release in FYI or permanent comments for this person: YES Reason for call back: Patient called because she would like to get a phone call with her lab results once they come in. Can someone give her a call once the Labs results are in or mail them? She had them done on January 07. Caller offered to speak with the nurse for assistance: YES Response: Patient offered to speak with nurse for assistance and patient agreed. Message forwarded to nurse. documented in this encounter Plan of Treatment Not on file documented as of this encounter Visit Diagnoses Not on filedocumented in this encounter Care Teams Change Management Consultant Relationship Specialty Start Date End Date Judy Juarez MD PCP - General Internal Medicine 01/14/17 10/23/20 Judy Juarez MD PCP - General Internal Medicine 10/24/20 11/28/20 Lisa Santos MD [address] [place] [address] PCP - General Internal Medicine 11/29/20 02/12/22 Judy Juarez MD [address] [place] [address] PCP - General Internal Medicine 02/13/22 02/14/22 Lisa Santos MD [address] [place] [address] PCP - General Internal Medicine 02/15/22 documented as of this encounter
--- OUTSIDE RECORDS SUMMARY | 2024-09-29 10:57 | XMS_ITS | Encounter Summary ---
Author Organization [facility] Address [address] [place] [address] Care Team Providers Care Metallographic Technician Name Role Phone Judy Juarez MD Primary Care Provider Norman Jain Primary Care Provider Judy Harris MD Primary Care Provider Judy Swanson MD Primary Care Provider Lisa Mireles MD Primary Care Provider [phone] Judy Juarez MD Primary Care Provider Lisa Mireles MD Primary Care Provider [phone] Encounter Details Date Type Department Care Team Description 01/06/2016 Mold Inspector Report Medical Records [address] [place] [address] Rehab, [facility] [address] [place] [address] Social History Tobacco Use Types Packs/Day Years [...] on filedocumented in this encounter Care Teams Metallographic Technician Relationship Specialty Start Date End Date Judy Juarez MD PCP - General Internal Medicine 10/12/15 12/02/16 Radhika, Pcp PCP - General Internal Medicine 12/03/16 01/13/17 Judy Juarez MD PCP - General Internal Medicine 01/14/17 10/23/20 Judy Juarez MD PCP - General Internal Medicine 10/24/20 11/28/20 Lisa Santos MD [address] [place] [address] PCP - General Internal Medicine 11/29/20 02/12/22 Judy Juarez MD [address] [place] [address] 91469 PCP - General Internal Medicine 02/13/22 02/14/22 Lisa Santos MD [address] [place] [address] 60803 PCP - General Internal Medicine 02/15/22 documented as of this encounter
--- OUTSIDE RECORDS SUMMARY | 2024-09-29 10:57 | XMS_ITS | Encounter Summary ---
Author Organization [facility] Address [address] [place] [address] Care Team Providers Care Director Airport Name Role Phone uJdy Juarez MD Primary Care Provider Judy Swanson MD Primary Care Provider Lisa Mireles MD Primary Care Provider [phone] Judy Juarez MD Primary Care Provider Lisa Mireles MD Primary Care Provider Encounter Details Date Type Department Care Team Description 08/19/2019 Account Installer Report Medical Records [address] [place] [address] Mary Colvin, SELF PROPELLED DREDGE OPERATOR [address] [address] Social History Tobacco Use Types Packs/Day Years [...] on filedocumented in this encounter Care Teams Director Airport Relationship Specialty Start Date End Date Judy Juarez MD PCP - General Internal Medicine 01/14/17 10/23/20 Judy Juarez MD PCP - General Internal Medicine 10/24/20 11/28/20 Lisa Santos MD [address] [place] [address] PCP - General Internal Medicine 11/29/20 02/12/22 Judy Juarez MD [address] [place] [address] 28116 PCP - General Internal Medicine 02/13/22 02/14/22 Lisa Santos MD [address] [place] [address] 60273 PCP - General Internal Medicine 02/15/22 documented as of this encounter
--- OUTSIDE RECORDS SUMMARY | 2024-09-29 10:57 | XMS_ITS | Encounter Summary ---
Author Organization [facility] Address [address] [place] [address] Care Team Providers Care Field Service Manager Name Role Phone Judy Juarez MD Primary Care Provider Judy Swanson MD Primary Care Provider Lisa Mireles MD Primary Care Provider [phone] Judy Juarez MD Primary Care Provider Lisa Mireles MD Primary Care Provider Encounter Details Date Type Department Care Team Description 12/13/2017 Clay Stain Mixer Report Medical Records [address] [place] [address] Radha Leal Social History Tobacco Use Types Packs/Day Years [...] on filedocumented in this encounter Care Teams Field Service Manager Relationship Specialty Start Date End Date Judy Juarez MD PCP - General Internal Medicine 01/14/17 10/23/20 Judy Juarez MD PCP - General Internal Medicine 10/24/20 11/28/20 Lisa Santos MD [address] [place] [address] PCP - General Internal Medicine 11/29/20 02/12/22 Judy Juarez MD [address] [place] [address]23 PCP - General Internal Medicine 02/13/22 02/14/22 Lisa Santos MD [address] [place] [address] 37342 PCP - General Internal Medicine 02/15/22 documented as of this encounter
--- OUTSIDE RECORDS SUMMARY | 2024-09-29 10:57 | XMS_ITS | Encounter Summary ---
Author Organization [facility] Address [address] [place] [address] Care Team Providers Care Car Wash Supervisor Name Role Phone Judy Juarez MD Primary Care Provider Judy Swanson MD Primary Care Provider Lisa Mireles MD Primary Care Provider Judy Juarez MD Primary Care Provider Lisa Mireles MD Primary Care Provider [phone] Encounter Details Date Type Department Care Team Description 05/19/2018 Transfer Records Medical Records [address] [place] [address] Abstract, Provider Social History Tobacco Use Types [...] filedocumented in this encounter Care Teams Car Wash Supervisor Relationship Specialty Start Date End Date Judy Juarez MD PCP - General Internal Medicine 01/14/17 10/23/20 Judy Juarez MD PCP - General Internal Medicine 10/24/20 11/28/20 Lisa Santos MD [address] [place] [address] PCP - General Internal Medicine 11/29/20 02/12/22 Judy Juarez MD [address] [place] [address] 64151 PCP - General Internal Medicine 02/13/22 02/14/22 Lisa Santos MD [address] [place] [address] 80622 PCP - General Internal Medicine 02/15/22 documented as of this encounter
--- OUTSIDE RECORDS SUMMARY | 2024-09-29 10:57 | XMS_ITS | Encounter Summary ---
Author Organization [facility] Address [address] [place] [address] Care Team Providers Care Customer Specialist Name Role Phone Judy Juarez MD Primary Care Provider Judy Swanson MD Primary Care Provider Lisa Mireles MD Primary Care Provider [phone] Judy Juarez MD Primary Care Provider Lisa Mireles MD Primary Care Provider [phone] Encounter Details Date Type Department Care Team Description 09/03/2018 Surgical Garment Assembly Supervisor Report Medical Records [address] [place] [address] Gerber Vazquez MD Social History Tobacco Use Types Packs/Day [...] on filedocumented in this encounter Care Teams Customer Specialist Relationship Specialty Start Date End Date Judy Juarez MD PCP - General Internal Medicine 01/14/17 10/23/20 Judy Juarez MD PCP - General Internal Medicine 10/24/20 11/28/20 Lisa Santos MD [address] [place] [address] PCP - General Internal Medicine 11/29/20 02/12/22 Judy Juarez MD [address] [place] [address] 96906 PCP - General Internal Medicine 02/13/22 02/14/22 Lisa Santos MD [address] [place] [address] 54773 PCP - General Internal Medicine 02/15/22 documented as of this encounter
--- OUTSIDE RECORDS SUMMARY | 2024-09-29 10:57 | XMS_ITS | Encounter Summary ---
Author Organization [facility] Address [address] [place] [address] Care Team Providers Care Load Dropper Name Role Phone Judy Juarez MD Primary Care Provider Judy Swanson MD Primary Care Provider Lisa Mireles MD Primary Care Provider [phone] Judy Juarez MD Primary Care Provider Lisa Mireles MD Primary Care Provider [phone] Encounter Details Date Type Department Care Team Description 08/07/2018 Orders Only Medical Records [address] [place] [address] Dinah Ortiz PA-C Social History Tobacco Use Types Packs/Day Years [...] Procedure Name Priority Date/Time Associated Diagnosis Comments OUTSIDE LOOP RECORDER Routine 06/28/2018 documented in this encounter Results * OUTSIDE LOOP RECORDER (06/28/2018) Dinah Ortiz PA-C CARDIOLOGY documented in this encounter Visit Diagnoses Not on filedocumented in this encounter Care Teams Load Dropper Relationship Specialty Start Date End Date Judy Juarez MD PCP - General Internal Medicine 01/14/17 10/23/20 Judy Juarez MD PCP - General Internal Medicine 10/24/20 11/28/20 Lisa Santos MD [address] [place] [address] PCP - General Internal Medicine 11/29/20 02/12/22 Judy Juarez MD [address] [place] [address] 02760 PCP - General Internal Medicine 02/13/22 02/14/22 Lisa Santos MD [address] [place] [address] 29009 PCP - General Internal Medicine 02/15/22 documented as of this encounter
--- OUTSIDE RECORDS SUMMARY | 2024-09-29 10:58 | XMS_ITS | Encounter Summary ---
Author Organization [facility] Address [address] [place] [address] Care Team Providers Care Consumer Services Advisor Name Role Phone Judy Juarez MD Primary Care Provider Norman Jain Primary Care Provider Judy Harris MD Primary Care Provider Judy Swanson MD Primary Care Provider Lisa Mireles MD Primary Care Provider [phone] Judy Juarez MD Primary Care Provider Lisa Mireles MD Primary Care Provider [phone] Encounter Details Date Type Department Care Team Description 06/12/2016 Release of Information Medical Records [address] [place] [address] Abstract, Provider Social History Tobacco Use Types [...] on filedocumented in this encounter Care Teams Consumer Services Advisor Relationship Specialty Start Date End Date Judy Juarez MD PCP - General Internal Medicine 10/12/15 12/02/16 Radhika, Norman PCP - General Internal Medicine 12/03/16 01/13/17 Judy Juarez MD PCP - General Internal Medicine 01/14/17 10/23/20 Judy Juarez MD PCP - General Internal Medicine 10/24/20 11/28/20 Lisa Santos MD [address] [place] [address] PCP - General Internal Medicine 11/29/20 02/12/22 Judy Juarez MD [address] [place] [address] 78823 PCP - General Internal Medicine 02/13/22 02/14/22 Lisa Santos MD [address] [place] [address] 00841 PCP - General Internal Medicine 02/15/22 documented as of this encounter
--- OUTSIDE RECORDS SUMMARY | 2024-09-29 10:58 | XMS_ITS | Encounter Summary ---
Author Organization [facility] Address [address] [place] [address] Care Team Providers Care Activities Manager Name Role Phone Judy Juarez MD Primary Care Provider Judy Swanson MD Primary Care Provider Lisa Mireles MD Primary Care Provider [phone] Judy Juarez MD Primary Care Provider Lisa Mireles MD Primary Care Provider [phone] Reason for Visit * Reason Onset Date Comments Advice 02/10/2019 CT today Encounter Details Date Type Department Care Team Description 02/10/2019 Telephone Gastroenterology - [address] [place] [address] Ruma Tinajero MD Advice (CT today) Social History Tobacco Use Types Packs/Day Years [...] encounter Miscellaneous Notes * Telephone Encounter - Leslee Bartholomew M.A. - 02/10/2019 9:38 AM EDT Patient is concerned about drinking the prep for CT and has questions. I referred her to the Radiology dept at [facility] * Telephone Encounter - Kimberly Patterson - 02/10/2019 9:24 AM EDT Pt is calling asking ot talk with a nurse about her CT scan she is suppose to have done today. documented in this encounter Plan of Treatment Not on file documented as of this encounter Visit Diagnoses Not on filedocumented in this encounter Care Teams Activities Manager Relationship Specialty Start Date End Date Judy Juarez MD PCP - General Internal Medicine 01/14/17 10/23/20 Judy Juarez MD PCP - General Internal Medicine 10/24/20 11/28/20 Lisa Santos MD [address] [place] [address]353 PCP - General Internal Medicine 11/29/20 02/12/22 Judy Juarez MD [address] [place] [address] 07790 PCP - General Internal Medicine 02/13/22 02/14/22 Lisa Santos MD [address] [place] [address] 43993 PCP - General Internal Medicine 02/15/22 documented as of this encounter
--- OUTSIDE RECORDS SUMMARY | 2024-09-29 10:58 | XMS_ITS | Encounter Summary ---
Author Organization [facility] Address [address] [place] [address] Care Team Providers Care Plant Operator Name Role Phone Judy Juarez MD Primary Care Provider Judy Swanson MD Primary Care Provider Lisa Mireles MD Primary Care Provider [phone] Judy Juarez MD Primary Care Provider Lisa Mireles MD Primary Care Provider [phone] Reason for Referral * Radiology Services (Routine) - Closed Specialty Diagnoses / Procedures Referred By Joey hunt Referred To Contact Radiology Diagnoses Crohn's disease of colon without complication (HCC) Procedures CT ABD & PELVIS W/O CONTRAST Ruma Tinajero MD [address] [place] [address] [address] Referral ID Status Reason Start Date Expiration Date Visits Re quested Visits Authorized [id number] Closed 01/28/2019 04/30/2019 1 1 Reason for Visit * Reason Onset Date Comments Diarrhea 01/26/2019 Encounter Details Date Type Department Care Team Description 01/26/2019 Telephone Gastroenterology [address] [place] [address] Ruma Tinajero MD Diarrhea Social History Tobacco Use Types Packs/Day Years [...] Telephone Encounter - Leslee Bartholomew M.A. - 01/28/2019 12:20 PM EDT Spoke with patient she [facility] schedule CT/map * Telephone Encounter - Ruma Tinajero MD - 01/28/2019 12:[address] scan ordered. Has not had any recent abdominal/pelvic CTs. * Telephone Encounter - Leslee Bartholomew M.A. - 01/28/2019 10:29 AM EDT Patient is feeling alittle better patient thinking she would liek to have a CT. Looking in to the imaging she has had many CT's please review and advise/map * Telephone Encounter - Ruma Tinajero MD - 01/26/2019 4:35 PM EDT Message left. Lab results are in. Please call the office. If she calls, her labs were normal (no inflammation). IF she is still having abdominal pain and diarrhea, a CT scan can be ordered. documented in this encounter Plan of Treatment Not on file documented as of this encounter Results * CT ABD & PELVIS W/O CONTRAST (02/10/2019 11:31 AM EDT) 02/10/2019 11:4 4 AM EDT Impressions [facility] - 02/10/2019 11:59 AM EDT IMPRESSION: No evidence of acute abdominopelvic pathology. Narrative [facility] - 02/10/2019 11:[address] ABD & PELVIS W/O CONTRAST HISTORY: ??Crohn's disease. PROCEDURE: Multiple axial images are obtained from the upper abdomen and pelvis. Oral contrast was administered. PRIOR STUDIES: CT abdomen/pelvis 11/13/2018. RADIATION DOSAGE: ctdi 23.52 mGy. FINDINGS: There is a 1.7 cm right renal cyst. The liver, pancreas, left kidney, adrenal glands, and spleen are grossly unremarkable. The gallbladder is present. The appendix is unremarkable. The sigmoid colon is redundant. There are multiple diverticuli of the sigmoid colon and descending colon.. The aorta is normal in caliber. The urinary bladder is unremarkable. The uterus and ovaries are unremarkable. There is a small fat-containing umbilical hernia. There is ankylosing spondylitis of the spine. The lung bases are clear. Procedure Note Corinne Smart MD - 02/10/2019 CT ABD & PELVIS W/O CONTRAST HISTORY: Crohn's disease. PROCEDURE: Multiple axial images are obtained from the upper abdomen andpelvis. Oral contrast was administered. PRIOR STUDIES: CT abdomen/pelvis 11/13/2018. RADIATION DOSAGE: ctdi 23.52 mGy. FINDINGS: There is a 1.7 cm right renal cyst. The liver, pancreas, left kidney, adrenal glands, and spleen are grosslyunremarkable. The gallbladder is present. The appendix is unremarkable. The sigmoid colon is redundant. There are multiple diverticuli of thesigmoid colon and descending colon.. The aorta is normal in caliber. The urinary bladder is unremarkable. The uterus and ovaries are unremarkable. There is a small fat-containing umbilical hernia. There is ankylosing spondylitis of the spine. The lung bases are clear. IMPRESSION IMPRESSION: No evidence of acute abdominopelvic pathology. Ruma Tinajero MD CT SCANS [facility] documented in this encounter Visit Diagnoses Diagnosis Crohn's disease of colon without complication (HCC)- Primary Crohn's disease of colon without complication (HCC) documented in this encounter Care Teams Plant Operator Relationship Specialty Start Date End Date Judy Juarez MD PCP - General Internal Medicine 01/14/17 10/23/20 Judy Juarez MD PCP - General Internal Medicine 10/24/20 11/28/20 Lisa Santos MD [address] [place] [address] 06762 PCP - General Internal Medicine 11/29/20 02/12/22 Judy Juarez MD [address] [place] [address] 67608 PCP - General Internal Medicine 02/13/22 02/14/22 Lisa Santos MD [address] [place] [address] 92512 PCP - General Internal Medicine 02/15/22 documented as of this encounter
--- OUTSIDE RECORDS SUMMARY | 2024-09-29 10:58 | XMS_ITS | Encounter Summary ---
Author Organization [facility] Address [address] [place] [address] Care Team Providers Care Print Machine Operator Name Role Phone Judy Juarez MD Primary Care Provider Judy Swanson MD Primary Care Provider Lisa Mireles MD Primary Care Provider [phone] Judy Juarez MD Primary Care Provider Lisa Mireles MD Primary Care Provider [phone] Encounter Details Date Type Department Care Team Description 09/19/2020 Old Medical Records Medical Records [address] [place] [address] Abstract, Provider Social History Tobacco Use Types [...] on filedocumented in this encounter Care Teams Print Machine Operator Relationship Specialty Start Date End Date Judy Juarez MD PCP - General Internal Medicine 01/14/17 10/23/20 Judy Juarez MD PCP - General Internal Medicine 10/24/20 11/28/20 Lisa Santos MD [address] [place] [address] [phone] PCP - General Internal Medicine 11/29/20 02/12/22 Judy Juarez MD [address] [place] [address]403 PCP - General Internal Medicine 02/13/22 02/14/22 Lisa Santos MD [address] [place] [address] 76709 PCP - General Internal Medicine 02/15/22 documented as of this encounter
--- OUTSIDE RECORDS SUMMARY | 2024-09-29 10:58 | XMS_ITS | Encounter Summary ---
Author Organization [facility] Address [address] [place] [address] Care Team Providers Care Textile Engraver Name Role Phone Judy Juarez MD Primary Care Provider Judy Swanson MD Primary Care Provider Lisa Mireles MD Primary Care Provider [phone] Judy Juarez MD Primary Care Provider Lisa Mireles MD Primary Care Provider [phone] Encounter Details Date Type Department Care Team Description 01/05/2019 Orders Only Medical Records [address] [place] [address] Judy Juarez MD Social History Tobacco Use Types Packs/Day [...] Name Priority Date/Time Associated Diagnosis Comments OUTSIDE SLEEP STUDY Routine 12/31/2018 documented in this encounter Results * OUTSIDE SLEEP STUDY (12/31/2018) Judy Juarez MD PULMONOLOGY documented in this encounter Visit Diagnoses Not on filedocumented in this encounter Care Teams Textile Engraver Relationship Specialty Start Date End Date Judy Juarez MD PCP - General Internal Medicine 01/14/17 10/23/20 Judy Juarez MD PCP - General Internal Medicine 10/24/20 11/28/20 Lisa Santos MD [address] [place] [address]89 PCP - General Internal Medicine 11/29/20 02/12/22 Judy Juarez MD [address] [place] [address] 91096 PCP - General Internal Medicine 02/13/22 02/14/22 Lisa Santos MD [address] [place] [address] 71008 PCP - General Internal Medicine 02/15/22 documented as of this encounter
--- OUTSIDE RECORDS SUMMARY | 2024-09-29 10:58 | XMS_ITS ---
Author Organization [facility] Address [address] [place] [address] Care Team Providers Care Animal Technician Name Role Phone BRITNEY STOREY Primary Care Provider Unavailab Debo Seymour Unavailable [phone] Allergies Allergen (clinical drug ingredient) Drug/Non Drug [...] Neg BLOOD Neg REASON FOR VISIT Annual STAFF DEVELOPMENT COORDINATOR Physical, Annual STAFF DEVELOPMENT COORDINATOR Physical 50-59* Medications Medication SIG (Take, Route, [...] 50 MG as directed Orally Active Nystatin 160810 UNIT/GM 1 application Ex ternally Twice a [...] Encounters Encounter Location Date Provider Diagnosis Total [address] [place] [address] 06/03/2024 Debo Patel Encounter for gynecological examination [...] Reason: Provider Name:Debo head, 06/10/2025 02:40:00 PM[facility] [address], [place], [address], Progress Notes * JAIME SÁNCHEZDOB:1970 (54 yo F)Acc No.[id number]:06/03/2024 PROGRESS NOTES Patient:?JAIME SÁNCHEZ Appointment Provider:?Debo head M.D. :1970???Age:54 Y???Sex:Female D ate:06/03/2024 Address:[address] [place], [place] [id number] Pcp:BRITNEY STOREY Subjective: * Chief Complaints: * ???Annual STAFF DEVELOPMENT COORDINATOR PhysicalAnnual STAFF DEVELOPMENT COORDINATOR Physical 50-59* * HPI: ???New/Follow-up Patient Consult:? [...] WAS DONE IN SEP 2022 AT [facility].? WE WILL TRY TO GET THE RESULTS. [...] adequate calcium via diet and supplementation ?Significant STAFF DEVELOPMENT COORDINATOR problems:?no significant hose inspector and patcher symptoms or problems * ROS:?general:?no?chest pain.?no?palpitations.?no?headache.?no?cough.?no?shortness of breath.?no?fever.?no?unexplained weight loss.?no?nausea/vomiting.?no?change in bowel movements.?no blood in stool.?no?genitourinary complaints.?no?skin complaints.? * Medical History:? 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 51342 Preventive Care New Pt. Age 40-64. 11815 Preventive Care Est Pt. Age 40-64. * Procedure Codes:? * Sign off status: Completed true * Appointment Provider:?Debo Patel M.D. Date:?06/03/2024 Generated for Jasmyn gordon/Linda/eTransmitting on:?09/29/2024 10:57 AM EST History and Physical Notes * HPI [...] WAS DONE IN SEP 2022 AT [facility]. WE WILL TRY TO GET THE RESULTS. [...] ate calcium via diet and supplementation Significant STAFF DEVELOPMENT COORDINATOR problems:: n o significant hose inspector and patcher symptoms or problems Examination Category Sub-Category Detail Notes Category Not es General Exam CONSTITUTIONAL: General Appearan ce:: alert, in no acute distress, normal, well nourished NECK/THYROID: Inspection/Palpation:: normal Thyroid:: normal size and shape RESPIRATORY: Auscultation: clear to auscultation bilaterally, Respiratory Effort: normal CARDIOVASCULAR: Auscultation: regula r rate and rhythm GASTROINTESTINAL: Abdomen:: no masses, nontender , nondistended Liver and Spleen:: normal Hernias:: no hernias present, no inguina l adenopathy MUSCULOSKELETAL: Inspection/Palpation:: no clubb ing, cyanosis, or edema SKIN: Skin:: normal NEURO/PSYCH: Orientation:: time , place, pers on Mood/Affect:: normal BREAST, Right: Inspection/Palpation :: no discharge, no [...]
== END 2024-09-29 10:23 | disposition home or self-care (01) ==
PROVIDERS: PCP Family Medicine; Visit Provider Urology
DX: R30.0 Dysuria (principal); N30.01 Acute cystitis with hematuria; N95.8 Other specified menopausal and perimenopausal disorders; Z13.9 Encounter for screening, unspecified
CPT/HCPCS: 99204

== ENCOUNTER → 2024-09-29 09:41 | Outpatient (BNVA) | payer OTHER, SELFPAY | PROVIDERS: PCP Family Medicine; Visit Provider Urology | DX: R30.0 Dysuria (principal); N30.01 Acute cystitis with hematuria; N95.8 Other specified menopausal and perimenopausal disorders; N95.2 Postmenopausal atrophic vaginitis | CPT/HCPCS: 51798; 81003; 99202 ==

== ENCOUNTER 2024-10-20 09:46 | Outpatient (AMB) | payer OTHER, SELFPAY ==
--- NOTE | 2024-10-20 09:48 | MHC.OFFVIS ---
Vital Signs 10/20/24 09:49 Height 5 ft Weight 198 lb BMI 38.7 Intake Visit Reasons: Right knee pain Intake Note: Josselin is a 54 year old female who presents with complaints of progressively worsening right knee pain. At her last visit she was given a Durolane viscosupplementation injection into her left knee. She got very good relief from that injection. She describes her right knee pain as sharp in nature. She has had cortisone injections in the past which gave her minimal relief. She has also tried Tylenol which gives only mild relief. She is not able to tolerate anti-inflammatory medicines. She wishes to hold off on surgery if at all possible. She has failed the last 3 months of conservative treatment which has included a home exercise program, Tylenol and topical creams. At this point her right knee pain is interfering with her activities of daily living and her ability to sleep well through the night. Allergies Penicillins [PENICILLINS] Allergy (Severe, Verified 10/20/24 09:49) ANAPHYLAXIS simvastatin Allergy (Mild, Verified 10/20/24 09:49) weird feeling ibuprofen Adverse Reaction (Intermediate, Verified 10/20/24 09:49) stomach upset, irritates [facility]'s Medication List - Last Reconciled 10/20/24 by Andrea Ponce MD adalimumab (Humira(CF) Pen) 40 mg subcut Q2W albuterol sulfate 90 mcg/actuation 2 puffs inhalation QID PRN albuterol sulfate 2.5 mg (3 mL) inhalation Q4-6H PRN 30 days alendronate 70 mg PO QWEEK 28 days azelastine intranasal budesonide 32 mcg/actuation 1 spray intranasal DAILY cholecalciferol (vitamin D3) 50 mcg PO DAILY 3 months clotrimazole 1% 1 appful vaginal BEDTIME PRN coenzyme Q10 (Co Q-10) 50 mg PO DAILY cranberry extract 250 mg PO DAILY cyanocobalamin (vitamin B-12) 1,000 mcg PO DAILY 30 days diclofenac sodium 1% (Arthritis Pain (diclofenac)) 4 grams topical QID 30 days docusate sodium 200 mg (2 x 100 mg) PO BID 3 months epinephrine (EpiPen 2-Isma) 0.3 mg (0.3 mL) IM Q10M PRN estradiol 0.01%(0.1mg/gram) Start with application daily for 2 weeks. pea-sized to urethra 3 times a week following 30 days fluticasone propion-salmeterol 500-50 mcg/dose inhalation lamotrigine (Lamictal) 100 mg PO DAILY loratadine 10 mg PO DAILY 90 days lorazepam 0.5 mg PO BID PRN mesalamine 1,200 mg (3 x 400 mg) PO BID montelukast 10 mg PO DAILY nystatin 5 mL PO DAILY 10 days nystatin-triamcinolone 100,000-0.1 unit/g-% 1 appl topical TID olopatadine 0.2% 1 drp ophthalmic (eye) DAILY PRN 30 days omeprazole 20 mg PO DAILY rosuvastatin 40 mg PO DAILY tizanidine 2 mg PO TID PRN 30 days [facility] Medical History Tubular adenoma Chronic idiopathic constipation Crohn disease Unspecified asthma, uncomplicated Dysuria Surgical History Hx of colonoscopy History of esophagogastroduodenoscopy (EGD) No pertinent past surgical history Family History Father Suicide Mother Hypertension Diabetes Paternal Grandmother Stroke Brother In good health Sister In good health Social History Housing: Other Housing Other:: mobile home Alcohol intake: current Alcohol intake frequency: does not drink Patient Tobacco Use Status: Never used Tobacco e-Cigarette/Vaping Use: Never Used Second Hand Smoke Exposure: Yes service: No Current occupational status: disabled Current occupational exposures/hazards: No Cognitive needs: No Hearing needs: No Vision needs: No Physical Exam Vital Signs: BMI result Body Mass Index 38.7 Const Other: Well-nourished well-developed very friendly female awake alert and oriented x3 in no acute distress Extrem Other: Bilateral lower extremity examination shows good capillary refill, no skin lesions noted, normal sensation light touch Right knee examination shows a mild effusion, palpable crepitus range of motion, pain with range of motion, no instability Results Reviewed Results Reviewed: X-rays of the patient's right knee show joint space narrowing, subchondral sclerosis, no acute bony abnormalities Assessment & Plan Assessment & Plan (1) Right knee pain: Code(s): M25.561 - Pain in right knee Category: Medical (2) Osteoarthritis of right knee: Code(s): M17.11 - Unilateral primary osteoarthritis, right knee Category: Medical Plan Ms. Harrington presents with progressively worsening right knee pain due to osteoarthritis. The risks and benefits of a right knee Durolane viscosupplementation injection were discussed at length with the patient. The patient wishes to proceed with the injection but states that she has a busy afternoon and does not wish for the injection today. She will contact my office to pick an injection date when she is ready to do so. Feel free to call me at any time should questions regarding her orthopedic management arise. I spent 21 minutes in reviewing the patient's records and imaging studies, seeing the patient and documenting in the medical record. Coding Level of Care Code Est Pt Level 3 (87304) Complex EM visit Add On G2211 Diagnoses Right knee pain M25.561 Osteoarthritis of right knee M17.11
[2024-10-20 09:49] VITALS: BMI 38.7
== END 2024-10-20 10:08 | disposition home or self-care (01) ==
LOC: HO.HOS 09:47
PROVIDERS: PCP Family Medicine; Visit Provider Orthopaedic Surgery
DX: M17.11 Unilateral primary osteoarthritis, right knee (principal); M25.561 Pain in right knee
CPT/HCPCS: 99213; G2211

== ENCOUNTER → 2024-10-20 09:46 | Outpatient (BNVA) | payer OTHER, SELFPAY | PROVIDERS: PCP Family Medicine; Visit Provider Orthopaedic Surgery | DX: M25.561 Pain in right knee (principal); M17.11 Unilateral primary osteoarthritis, right knee | CPT/HCPCS: 99212 ==

== ENCOUNTER 2024-10-28 14:31 | Outpatient (AMB) | payer OTHER, SELFPAY ==
--- NOTE | 2024-10-28 15:23 | A.OFFPC_ITS ---
Vital Signs 10/28/24 15:30 Height 5 ft Weight 202 lb 2 oz BMI 39.5 BP 120/80 Blood Pressure Location Rt brachial Position Sitting Respiration 16 Pulse 93 Pulse Source Pulse Oximeter Pulse Oximetry (%) 96 Oxygen Delivery Method Room Air Intake Visit Reasons: pulmonology referral Intake Note: patient is scheduled for appt to discuss asthma and lung issuse so she can be referred out to pulmonology Shell Trim Operator Required: No Allergies Penicillins [PENICILLINS] Allergy (Severe, Verified 10/28/24 15:27) ANAPHYLAXIS simvastatin Allergy (Mild, Verified 10/28/24 15:27) weird feeling ibuprofen Adverse Reaction (Intermediate, Verified 10/28/24 15:27) stomach upset, irritates [facility]'s Tobacco use date assessed: 01/24/24 Dental Screening Dental Screen Date: 11/05/23 HPI pulmonology referral HPI Details 54 y/o female [facility] [place] Medical History Tubular adenoma Chronic idiopathic constipation Crohn disease Unspecified asthma, uncomplicated Dysuria Surgical History Hx of colonoscopy History of esophagogastroduodenoscopy (EGD) No pertinent past surgical history Family History Father Suicide Mother Hypertension Diabetes Paternal Grandmother Stroke Brother In good health Sister In good health Social History Housing: Other Housing Other:: mobile home Alcohol intake: current Alcohol intake frequency: does not drink Patient Tobacco Use Status: Never used Tobacco e-Cigarette/Vaping Use: Never Used Second Hand Smoke Exposure: Yes service: No Current occupational status: disabled Current occupational exposures/hazards: No Cognitive needs: No Hearing needs: No Vision needs: No Questionnaire PHQ-9 Over the last 2 weeks, how often have you been bothered by any of the following problems? 1. Little interest or pleasure in doing things: several days 2. Feeling down, depressed, or hopeless: more than half the days 3. Trouble falling or staying asleep, or sleeping too much: several days 4. Feeling tired or having little energy: several days 5. Poor appetite or overeating: several days 6. Feeling bad about yourself - or that you are a failure or have let yourself or your family down: several days 7. Trouble concentrating on things, such as reading the newspaper or watching television: several days 8. Moving or speaking so slowly that other people could have noticed. Or the opposite - being so fidgety or restless that you have been moving around a lot more than usual: several days 9. Thoughts that you would be better off or of hurting yourself in some way: not at all Total score: 9 Source: Developed by Drs. Bernardino Ahumada, Peri Valencia, Gordy Victoria and colleagues, with an educational hakeem from [employer]. Thrive Questionnaire Date Thrive assessed: 08/12/24 I am a: Patient What is your living situation today?: I choose not to answer this question Within the past 12 months, did the food you bought not last and you didn't have the money to get more?: I choose not to answer this question Within the past 12 months, did you worry whether your food would run out before you got money to buy more?: I choose not to answer this question Do you have trouble paying for medicines?: I choose not to answer this question Do you have trouble getting transportation to medical appointments?: I choose not to answer this question Do you have trouble paying your heating and electricity bill?: I choose not to answer this question Do you have trouble taking care of your child, family member or friend?: I choose not to answer this question Do you have trouble with day-to-day activities such as bathing, preparing meals, shopping, managing finances, etc.?: I choose not to answer this question Are you currently unemployed and looking for a job?: I choose not to answer this question Are you interested in more education?: I choose not to answer this question Please select the resources that you would like help with: None Currently or been in a relationship where the following occur: No concerns reported THRIVE Score: 0 ZENY-7 AMB Questionnaire ZENY-7 Date ZENY - 7 assessed: 08/12/24 Source: Developed by Drs. Bernardino Ahumada, Peri Valencia, Gordy Victoria and colleagues, with an educational hakeem from [employer]. ACT Questionnaire In the past 4 weeks, how much of the time did your asthma keep you from getting as much done at work, school or at home?: Some of the time During the past 4 weeks, how often have you had shortness of breath?: 1-2 times a week During the past 4 weeks, how often did your asthma symptoms wake you up at night or earlier than usual in the morning?: Once or twice per week During the past 4 weeks, how often have you had to use your rescue inhaler or nebulizer medication?: Not at all How would you rate your asthma control during the past 4 weeks?: Somewhat controlled Score: 19 Review of Systems Const Denies chills, Denies fatigue, Denies fever(s), Denies headache(s) and Denies weakness ENT Denies dizziness and Denies headache(s) Card Denies chest pain, Denies lightheadedness, Denies dyspnea and Denies other (Palpitations) Resp Denies cough, Denies dyspnea, Denies wheezing and Denies other ( shortness of breath) Musc Denies numbness and Denies tingling Neuro Denies dizziness, Denies headache(s), Denies numbness, Denies tingling, Denies paresthesias and Denies weakness Psych Denies anxiety and Denies depression Endo Denies fatigue Aller/Immun Denies wheezing Physical exam (Primary Care) Vital Signs: Last Vital Signs Pulse 93 10/28/24 15:30 Resp 16 10/28/24 15:30 BP 120/80 10/28/24 15:30 Pulse Ox 96 10/28/24 15:30 Oxygen Delivery Method Room Air 10/28/24 15:30 BMI result Body Mass Index 39.5 Tobacco/Smoking Status: Tobacco use Status Tobacco use date assessed 01/24/24 10/28/24 15:24 Patient Tobacco Use Status Never used Tobacco 10/28/24 15:24 e-Cigarette/Vaping Use Never Used 10/28/24 15:24 PHQ-9: PHQ-9 Score PHQ-9: Total score 9 10/28/24 15:24 Thrive Assessment: Date of Thrive Assessment Date Thrive assessed 08/12/24 10/28/24 15:24 Currently or been in a relationship where the following occur: No concerns reported Const General: no acute distress and well developed Nutritional Appearance: well nourished Orientation/consciousness: patient oriented x3 [facility] Head: Yes normocephalic and Yes atraumatic Eyes General: appearance normal, both eyes and all related structures Pupils: Equal, round and reactive pupils present EOM: EOMs intact bilaterally Resp Effort & Inspection: normal respiratory effort Auscultation: clear to auscultation bilaterally Cardio Rate: regular rate Rhythm: regular rhythm Heart sounds: S1 normal heart sound present, S2 normal heart sound present, no gallops, no murmurs and no rubs Neuro General: patient oriented x3 and gait normal Cranial nerves: Yes Equal, round and reactive pupils present Psych Affect: normal affect Coding Level of Care Code Est Pt Level 3 (85907) Diagnoses Asthma J45.909 Assessment & Plan Assessment & Plan (1) Asthma: Code(s): J45.909 - Unspecified asthma, uncomplicated Category: Medical Plan: Patient?is?taking?her?inhaled?medications?as?prescribed. Lungs?are?clear?to?auscultation?today. Currently Stable. She?would?like?to?switch?specialists?from?Dr. Gaytan to?[facility]?Pulmonary?Medicine.??Referred. Continue?current?medications Orders: Orders Comprehensive Met. Panel Today E66.9 - Obesity, unspecified TSH reflex Free T4 Today E66.9 - Obesity, unspecified, Z00.00 - Encounter for general adult medical examination without abnormal findings Referrals Pulmonology Referral J45.909 - Unspecified asthma, uncomplicated
[2024-10-28 15:30] VITALS: BP 120/80; PULSE 93; RESP 16; O2SAT 96; BMI 39.5
--- OUTSIDE RECORDS SUMMARY | 2024-10-28 17:27 | XMS_ITS | Encounter Summary ---
Author Organization [facility] Address [address] [place] [address] Care Team Providers Care Rehab Nurse Name Role Phone Bindu Sanders MD Primary Care Provider Judy Harris MD Primary Care Provider Norman Jain Primary Care Provider Judy Harris MD Primary Care Provider Judy Swanson MD Primary Care Provider Lisa Mireles MD Primary Care Provider Judy Juarez MD Primary Care Provider Lisa Mireles MD Primary Care Provider [phone] Encounter Details Date Type Department Care Team Description 09/27/2015 Liquified Natural Gas Technician Report Medical Records [address] [place] [id number] Abstract, Provider Social History Tobacco Use Types Packs/Day Years Used Date Smoking Tobacco: Never Assessed Sex Assigned at Date Recorded Not on file Job Start Date Occupation Industry Not on file Not on file Not on file documented as of this encounter Plan of Treatment Not on file documented as of this encounter Visit Diagnoses Not on filedocumented in this encounter Care Teams Rehab Nurse Relationship Specialty Start Date End Date Bindu Sanders MD PCP - General Internal Medicine 09/29/15 10/11/15 Judy Juarez MD PCP - General Internal Medicine 10/12/15 12/02/16 Radhika, Pcp PCP - General Internal Medicine 12/03/16 01/13/17 Judy Juarez MD PCP - General Internal Medicine 01/14/17 10/23/20 Judy Juarez MD PCP - General Internal Medicine 10/24/20 11/28/20 Lisa Santos MD [address] [place] [id number] PCP - General Internal Medicine 11/29/20 02/12/22 Judy Juarez MD [address] [place] [address] PCP - General Internal Medicine 02/13/22 02/14/22 Lisa Santos MD [address] [place] [address]68 PCP - General Internal Medicine 02/15/22 documented as of this encounter
--- OUTSIDE RECORDS SUMMARY | 2024-10-28 17:27 | XMS_ITS | Encounter Summary ---
Author Organization [facility] Address [address] [place] [address] Care Team Providers Care Customer Support Coordinator Name Role Phone Bindu Sanders MD Primary Care Provider Judy Harris MD Primary Care Provider Norman Jain Primary Care Provider Judy Harris MD Primary Care Provider Judy Swanson MD Primary Care Provider Lisa Mireles MD Primary Care Provider [phone] Judy Juarez MD Primary Care Provider Lisa Mireles MD Primary Care Provider [phone] Encounter Details Date Type Department Care Team Description 09/23/2015 Data Consultant Report Medical Records [address] [place] [id number] Bindu Sanders MD Social History Tobacco Use [...] filedocumented in this encounter Care Teams Customer Support Coordinator Relationship Specialty Start Date End Date Bindu Sanders MD PCP - General Internal Medicine 09/29/15 10/11/15 Judy Juarez MD PCP - General Internal Medicine 10/12/15 12/02/16 Radhika, Pcp PCP - General Internal Medicine 12/03/16 01/13/17 Judy Juarez MD PCP - General Internal Medicine 01/14/17 10/23/20 Judy Juarez MD PCP - General Internal Medicine 10/24/20 11/28/20 Lisa Santos MD [address] [place] [id number] PCP - General Internal Medicine 11/29/20 02/12/22 Judy Juarez MD [address] [place] [address]60 PCP - General Internal Medicine 02/13/22 02/14/22 Lisa Santos MD [address] [place] [address] PCP - General Internal Medicine 02/15/22 documented as of this encounter
--- OUTSIDE RECORDS SUMMARY | 2024-10-28 17:28 | XMS_ITS | Data Portability ---
Author Organization [place] [facility] Address [address] [place] [address] Care Team Providers Care Eight Section Blower Name Role Phone [facility] Primary Care Provider [facility] FAX OTHER [phone] Assessment Encounter Date Assessment Date Assessment LastModified by Organization Details LastModified Time 09/03/2021 09/03/2021 Proper Personal Protective Equipment (PPE), including gloves, eye protection and masks were donned and doffed appropriately and all equipment cleaned using approved technique with germicidal disposable wipes prior to and after care of this patient according to [facility]'s infection prevention protocols. Overview/History : 51 yo [...] encouraged to seek pulmonary consult through PCP Not available 09/03/2021 12:56:33 Plan of Treatment Reminders Order Date Submit Date Provider Last Modified By Organization Details Last Modified Time Details Appointments None recorded. Lab unlisted lab - covid-19 (novel coronavirus ) PCR 2021 [place] [facility] (Centralized Electronic Ordering - All Locations), Patient Can Go To The Location Of Their Choice, [address] 13:16:40 Referral None recorded. Procedures None recorded. Surgeries None recorded. Imaging None recorded. Medication Orders benzonatate 200 mg capsule 2021 [facility] [place], [address] [place], [address], 13:01:10 Patient TargetsNo targets recorded. Patient Instructions Encounter Date Encounter Id Patient Instructions Last Modified By Organization Details Last Modified Time 09/03/2021 [id number] Inhaler Instructions Before use, you need to [...] after cleaning actually helps it work better. Not available 09/03/2021 11:39:16 Reason for Referral None Reported. Results Created Date Observation Date Name Description Value Unit Range Abnormal Flag Note LastModifiedBy Organization Detail LastModifiedTime 09/03/19 22 09/05/2021 COVID -19 (NOVE L CORON AVIRU S) PCR covid-19 PCR result (neg) NEGAT SADIQ 2019- novel Coron aviru s (2019 -nCoV ) not detec sandee by the qRT-P CR assay . If clini nu suspi cion for COVID -19 is high, marily nue to maint ain preca ution s and consi felice repea t testi ng. Resul t repor sandee to the [facility]. This test has been autho rized by the FDA under an Emerg ency Use Autho rizat ion (EUA) for use by autho rized labor atori es. Test perfo rmed by [facility] at the [facility] of [facility] and Abhijeet gutierrez, [address] [place] [address] . CLIA ID: [id number] , CAP: [id number] 96. Medic al Direc tor: Ruma Ramirez, PhD FAC (NOTE ) The CRSP SARS- CoV-2 Real- time Rever se Trans cript ase (RT)- PCR Diagn ostic Assay is a real- time RT-PC R test inten ded for the quali tativ e detec tion of nucle ic acid from the SARS- CoV-2 in nasop haryn geal and oroph aryng eal swabs colle cted from indiv idual s who may have contr acted the virus . Testi ng is limit ed to the [facility] Seque ncing Platf orm at the [facility] which is certi fied under the Clini nu Labor atory Impro vemen t Amend ments of 1987 (CLIA ), 42 U.S.C . ?263a , to perfo rm high compl exity tests . = Posit sadiq resul ts are indic ative of activ [...] requi red to repor t all posit sadiq resul ts to the appro priat e publi c healt h autho ritie s. = Negat sadiq resul ts do not precl ude SARS- CoV-2 infec tion and shoul d not be used as the sole basis for patie nt treat ment or other patie nt manag ement decis ions. Negat sadiq resul ts must be combi zhane with clini nu obser vatio ns, patie nt histo ry, and epide miolo gical infor matio n. Not Available [facility] (Centralized Electronic Ordering - All Locations) Patient Can Go To The Location Of Their Choice, [id number] 09/05/2021 13:16:40 Result Notes None recorded. Procedures Surgical History Date Name Laterality Status Provider Name and Address Organization Details Recorded Time 09/03/19 22 ECG Interpretation - completed MARGARET Bazzi [address], [place], [address], [place] [facility] 09/03/2021 12:41:20 Imaging Results [...] 0.3 mg (0.3 mL) Into the muscle [id number] As Needed for anaphylaxis ; for 2 [...] Not Available Not Available No t Available [place] Saline 0.65 % nasal drops active Not [...] SNOMED-CT Code Diagnosis ICD10 Code Diagnosis Note [id number] MARGARET Bazzi [facility] [address] [place] [address] 09/03/2021 11:37:26 09/04/2021 08:55:24 Viral upper respiratory tract infection [id number] J06.9 Exposure t o communicable disease [id number] Z20.822 Health Concerns Section Related Observation LastModified by Organization Detai ls LastModified Time None Recorded Concern Status LastModified by Organization Details LastModified Time None Recorded Advance Directives Directive None Recorded Payers Encounter Date Sequence Insurance Name Policy Number Policy Mckeon Covered Member ID Mckeon Member ID Guarantor Name 09/03/2021 1 [facility] - DOS PRIOR TO 2022 - DUAL ELIGIBLE (MEDICARE REPLACEMENT/ADV ANTAGE - HMO) Josselin Harrington [id number] Josselin Harrington Notes Date Note Type Note [...] a heart attack-no smoking, no hx of IA/CVA, reports cholesterol is fine , and denies any family hx of CAD. MARGARET Bazzi [address], [place], [address], [place] [facility] 09/03/2021 12:56:49 OBGyn Episode No OBEpisode recorded.
--- OUTSIDE RECORDS SUMMARY | 2024-10-28 17:28 | XMS_ITS ---
Author Organization [facility] Address [address] [address] Care Team Providers Care Cylinder Devalver Name Role Phone BRITNEY STOREY Primary Care Provider Unavailab Debo Seymour Unavailable [phone] REASON FOR VISIT ULTRA - BLOATING PAIN Encounters Encounter Location Date Provider Diagnosis [facility] [address] [place] [address] 06/19/2024 Debo Patel Plan Of Treatment Next Appt Details Provider Name:Debo head, 06/10/2025 02:40:00 PM, [address] [facility], [address], [place], [address], Progress Notes * TROY SÁNCHEZBaldoDOB:1970 (54 yo F)Acc No.[id number]:06/19/2024 PROGRESS NOTES Patient:?JAIME SÁNCHEZ Appointment Provider:?Debo head M.D. :1970???Age:54 Y???Sex:Female D ate:06/19/2024 Address:[address] [place], [place] [id number] Pcp:BRITNEY STOREY Subjective: * Chief Complaints: * ???1. ULTRA - BLOATING PAIN. * Medical History:? Objective: * Vitals:? Assessment: Plan: * Treatment: * Images: Billing Information: * Visit Code:? * Procedure Codes:? * Electronic signature of Mary Patel MD on 10/28/2024 at 05:28 PM EDT Sign off status: Pending * Appointment Provider:?Debo Patel M.D. Date:?06/19/2024 Generated for Jasmyn gordon/Linda/Fredrick on:?10/28/2024 05:28 PM EDT
--- OUTSIDE RECORDS SUMMARY | 2024-10-28 17:28 | XMS_ITS | Encounter Summary ---
Author Organization [facility] Address [address] [place] [address] Care Team Providers Care Optical Store Manager Name Role Phone Judy Juarez MD Primary Care Provider Judy Swanson MD Primary Care Provider Lisa Mireles MD Primary Care Provider [phone] Judy Juarez MD Primary Care Provider Lisa Mireles MD Primary Care Provider [phone] Encounter Details Date Type Department Care Team Description 08/27/2017 Hospital Medical Records [address] [place] [address] Gerber Murillo MD Social History Tobacco Use [...] on filedocumented in this encounter Care Teams Optical Store Manager Relationship Specialty Start Date End Date Judy Juarez MD PCP - General Internal Medicine 01/14/17 10/23/20 Judy Juarez MD PCP - General Internal Medicine 10/24/20 11/28/20 Lisa Santos MD [address] [place] [address] [id number] PCP - General Internal Medicine 11/29/20 02/12/22 Judy Juarez MD [address] [place] [address] 10[address] PCP - General Internal Medicine 02/13/22 02/14/22 Lisa Santos MD [address] [place] [address] 8[address] PCP - General Internal Medicine 02/15/22 documented as of this encounter
--- OUTSIDE RECORDS SUMMARY | 2024-10-28 17:28 | XMS_ITS ---
Author Organization [facility] Address [address] [facility] [address] [place] [address] Care Team Providers Care Bottom Stainer Name Role Phone BRITNEY STOREY Primary Care Provider UnavailDebo Alford Unavailable [phone] REASON FOR VISIT YEAST INFECTION Encounters Encounter Location Date Provider Diagnosis [facility] [employer] [facility] [address] [place] [address] 07/30/2024 Debo Patel Plan Of Treatment Next Appt Details Provider Name:Debo head, 06/10/2025 02:40:00 PM, [address], [place], [address], Progress Notes * GONZALO, GISELLAALEKSBaldoDOB:1970 (54 yo F)Acc No.[id number]:07/30/2024 Patient:?JAIME SÁNCHEZ :1970???Age:54 Y???Sex:Female Address:[address] [place] [address], [address] * true * Date:? Generated for Printi ng/Fajoselyng/eTransmitting on:?10/28/2024 05:27 PM EDT
--- OUTSIDE RECORDS SUMMARY | 2024-10-28 17:28 | XMS_ITS | Encounter Summary ---
Author Organization [facility] Address [address] [place] [address] Care Team Providers Care Dental Secretary Name Role Phone Judy Juarez MD Primary Care Provider Norman Jain Primary Care Provider Judy Harris MD Primary Care Provider Judy Swanson MD Primary Care Provider Lisa Mireles MD Primary Care Provider [phone] Judy Juarez MD Primary Care Provider Lisa Mireles MD Primary Care Provider [phone] Encounter Details Date Type Department Care Team Description 04/03/2016 Wellness Visit Medical Records [address] [place] [address] Judy Juarez MD Social History Tobacco Use [...] on filedocumented in this encounter Care Teams Dental Secretary Relationship Specialty Start Date End Date Judy Juarez MD PCP - General Internal Medicine 10/12/15 12/02/16 Radhika, Pcp PCP - General Internal Medicine 12/03/16 01/13/17 Judy Juarez MD PCP - General Internal Medicine 01/14/17 10/23/20 Judy Juarez MD PCP - General Internal Medicine 10/24/20 11/28/20 Lisa Santos MD [address] [place] [address] 216[address] PCP - General Internal Medicine 11/29/20 02/12/22 Judy Juarez MD [address] [place] [address]28[address] PCP - General Internal Medicine 02/13/22 02/14/22 Lisa Santos MD [address] [place] [address] 68107 PCP - General Internal Medicine 02/15/22 documented as of this encounter
--- OUTSIDE RECORDS SUMMARY | 2024-10-28 17:28 | XMS_ITS | Encounter Summary ---
Author Organization [facility] Address [address] [place] [address] Care Team Providers Care Hydrochloric Area Supervisor Name Role Phone Lisa Santos MD Primary Care Provider [phone] Judy Juarez MD Primary Care Provider [facility] Lisa Collazo MD Primary Care Provider [phone] Reason for Visit * Reason Comments E-prescribe Rx Request Encounter Details Date Type Department Care Team Description 12/06/2020 Refill Gastroenterology - [place] [address] [facility] [address] [place] [address] Kain Craolina PA-C [address] [address] E-prescribe Rx Request Social History Tobacco Use [...] on filedocumented in this encounter Care Teams Hydrochloric Area Supervisor Relationship Specialty Start Date End Date Lisa Santos MD [address] [place] [address] PCP - General Internal Medicine 11/29/20 02/12/22 Judy Juarez MD [address] [place] [address] PCP - General Internal Medicine 02/13/22 02/14/22 Lisa Santos MD [address] [place] [address] PCP - General Internal Medicine 02/15/22 documented as of this encounter
--- OUTSIDE RECORDS SUMMARY | 2024-10-28 17:28 | XMS_ITS | Clinical Summary ---
Author Organization [facility] [address] [place] [address] [place] [address] Phone Care Team Providers Care Requirements Manager Name Role Phone Lisa Santos MD Primary Care Provider [phone] Allergies Active Allergy Reactions Criticality Noted Date [...] time each day. 2 Active sodium chloride ([place] Saline) 0.65 % nasal drops 3 Drops [...] nodules 05/05/2016 Overview (08/07/2024): on imaging at [facility], followed by Dr. Gaytan. CAT scan 04/23/17: [...] PM EST Hospital Encounter Radiology Department - [address] [address] Encounter for screening mammogram for breast cancer [...] ascending colitis on bxy ESOPHAGOGASTRODUODENOSCOPY 09/12/2015 PROCEDURE: ND ESOPHAGOGASTRODUODENOSCOPY TRANSORAL DIAGNOSTIC; COMMENT: Normal with nl duodenal, antral and GE junction bxys BREAST BIOPSY 06/25/2018 Left PROCEDURE: BX BREAST; PERC NEEDLE CORE W/IMAG GUID; COMMENT: BENIGN FIBROADENOMATOUS CHANGES. OTHER SURGICAL HISTORY 02/2021 PROCEDURE: MAMMOGRAM, SCREENING, BOTH BREASTS Medical History Medical History Date Comments Depression with anxiety 10/06/2015 DX:Depre ssion with anxiety; COMMENT: [facility] - therapist Khushi, tries to see her once in a week Hypercholesteremia 10/06/2015 DX:Hyperchole steremia Asthma 10/06/2015 DX:Asthma; COMME NT: Dr. Gaytan Ulcerative colitis DX:Ulcerative colitis (HCC); COMMENT: Dr. Baez Ankylosing spondylitis DX:Ankylo sing spondylitis (HCC); COMMENT: Dr. Mckay Hepatic steatosis [...] spine (CMS/HCC) 08/2017 DX:Fracture of lumbar spine ([facility]); COMMENT: Macario fracture Sternal fracture 08/2017 DX:Sternal frac ture Crohn's disease (CMS/HCC) DX:[place] Management Specialist hn's disease ([facility]) Family History Medical History Relation Name Comments [...] is recommended in 1 year. MAMMO LOCATION: [facility], [address] [place] [address], [address], . -------- FINAL REPORT -------- Dictated By: Roselyn Martinez Dictated Date: 09/03/2024 08:19 ET Assigned Physician: Roselyn Martinez Reviewed and Electronically Signed By: Roselyn Martinez Signed Date: 09/03/2024 08:24 ET Workstation ID: [id number] Transcribed By: Self Edit Transcribed Date: 09/03/2024 [...] is recommended in 1 year. MAMMO LOCATION: [facility], [address] [place] [address], [address], . -------- FINAL REPORT -------- Dictated By: Roselyn Martinez Dictated Date: 09/03/2024 08:19 ET Assigned Physician: Roselyn Martinez Reviewed and Electronically Signed By: Roselyn Martinez Signed Date: 09/03/2024 08:24 ET Workstation ID: [id number] Transcribed By: Self Edit Transcribed Date: 09/03/2024 08:[address] [facility] Lisa Santos MD IMG BI PROCEDURES Final Result * Annual BMP Blood Test (12/06/2020) [facility] Annual BMP Blood Test abstracted Result [facility] Provider HEALTH MAINTENANCE Final Result * Hepatitis C Screening (12/06/2020) [facility] Hepatitis C Screening abstracted Result [facility] Provider HEALTH MAINTENANCE Final Result * (ABNORMAL) Lipid panel (08/21/2019) [facility] LDL/HDL Ratio 4 0 - 4 Triglycerides 186(A) 0 - 150 mg/dL Cholesterol 198 0 - 200 mg/dL HDL 56 >=40 mg/dL LDL Cholesterol 105(A) 0 - 100 mg/dL Blood Venous blood specimen / Unknown Result [facility] Historical Provider LAB BLOOD ORDERABLES Micaela l Result * HIV Screening (01/10/2018) [facility] HIV Screening abstracted Result [facility] Historical Provider HEALTH MAINTENANCE Final Result * Cervical Cancer Screening: HPV (12/12/2015) Cervical Cancer Screening: HPV abstracted, negative Historical Provider HEALTH MAINTENANCE Final Result * Colonoscopy (09/12/2015) Colonoscopy no interpretation , abstracted Anatomical Region Laterality Modality Other Historical Provider HEALTH MAINTENANCE Final Result from Last 3 Months or Most Recently Relevant to Health Maintenance Insurance [facility] MEDICARE Member Subscriber Plan / Payer (Ef fective 2016-Present) Name:Josselin Harrington Relation to Subscriber:Self Name:Josselin Harrington Payer ID:[id number] Group ID:[id number] Type:Not on file Address: [place] [address] [address] [address] Care Teams Requirements Manager Relationship Specialty Start Date End Date Lisa Santos MD [address] [place] [address] PCP - General Internal Medicine 02/15/22
--- OUTSIDE RECORDS SUMMARY | 2024-10-28 17:28 | XMS_ITS | Encounter Summary ---
Author Organization [facility] Address [address] [place] [address] Care Team Providers Care Fagoter Name Role Phone Judy Juarez MD Primary Care Provider Judy Swanson MD Primary Care Provider Lisa Mireles MD Primary Care Provider [phone] Judy Juarez MD Primary Care Provider Lisa Mireles MD Primary Care Provider [phone] Encounter Details Date Type Department Care Team Description 08/19/2019 Radio Machinist Report Medical Records [address] [place] [address] Mary Colvin, REGULATORY AFFAIRS DIRECTOR [address] [address] Social History Tobacco Use Types [...] on filedocumented in this encounter Care Teams Fagoter Relationship Specialty Start Date End Date Judy Juarez MD PCP - General Internal Medicine 01/14/17 10/23/20 Judy Juarez MD PCP - General Internal Medicine 10/24/20 11/28/20 Lisa Santos MD [address] [place] [address] PCP - General Internal Medicine 11/29/20 02/12/22 Judy Juarez MD [address] [place] [address] PCP - General Internal Medicine 02/13/22 02/14/22 Lisa Santos MD [address] [place] [address] PCP - General Internal Medicine 02/15/22 documented as of this encounter
--- OUTSIDE RECORDS SUMMARY | 2024-10-28 17:28 | XMS_ITS | Encounter Summary ---
Author Organization [facility] Address [address] [place] [address] Care Team Providers Care Geography Head Name Role Phone Judy Juarez MD Primary Care Provider Judy Swanson MD Primary Care Provider Lisa Mireles MD Primary Care Provider [phone] Judy Juarez MD Primary Care Provider Lisa Mireles MD Primary Care Provider [phone] Reason for Visit * Reason Onset Date Comments Testing 06/18/2018 [id number] Encounter Details Date Type Department Care Team Description 06/18/2018 [place] [facility] - [address] [address] Dinah Ortiz PA-C Testing ([id number]) Social History Tobacco Use Types Packs/Day Years [...] encounter Miscellaneous Notes * Telephone Encounter - Tobin Alcala - 06/18/2018 8:12 AM EST CCA No auth Req [id number] @ [facility] Order forwarded to [place] for booking documented in this encounter Plan of Treatment Not on file documented as of this encounter Visit Diagnoses Not on filedocumented in this encounter Care Teams Geography Head Relationship Specialty Start Date End Date Judy Juarez MD PCP - General Internal Medicine 01/14/17 10/23/20 Judy Juarez MD PCP - General Internal Medicine 10/24/20 11/28/20 Lisa Santos MD [address] [place] [address] PCP - General Internal Medicine 11/29/20 02/12/22 Judy Juarez MD [address] [place] [address] PCP - General Internal Medicine 02/13/22 02/14/22 Lisa Santos MD [address] [place] [address]86 PCP - General Internal Medicine 02/15/22 documented as of this encounter
--- OUTSIDE RECORDS SUMMARY | 2024-10-28 17:28 | XMS_ITS | Encounter Summary ---
Author Organization [facility] Address [address] [place] [address] Care Team Providers Care Advertising Associate Name Role Phone Judy Juarez MD Primary Care Provider Norman Jain Primary Care Provider Judy Harris MD Primary Care Provider Judy Swanson MD Primary Care Provider Lisa Mireles MD Primary Care Provider [phone] Judy Juarez MD Primary Care Provider Lisa Mireles MD Primary Care Provider [phone] Encounter Details Date Type Department Care Team Description 06/07/2016 [facility] Medical Records [address] [place] [address] Abstract, Provider Social History Tobacco Use Types [...] on filedocumented in this encounter Care Teams Advertising Associate Relationship Specialty Start Date End Date Judy Juarez MD PCP - General Internal Medicine 10/12/15 12/02/16 Radhika, Norman PCP - General Internal Medicine 12/03/16 01/13/17 Judy Juarez MD PCP - General Internal Medicine 01/14/17 10/23/20 Judy Juarez MD PCP - General Internal Medicine 10/24/20 11/28/20 Lisa Santos MD [address] [place] [address] PCP - General Internal Medicine 11/29/20 02/12/22 Judy Juarez MD [address] [place] [address]808 PCP - General Internal Medicine 02/13/22 02/14/22 Lisa Santos MD [address] [place] [address] PCP - General Internal Medicine 02/15/22 documented as of this encounter
--- OUTSIDE RECORDS SUMMARY | 2024-10-28 17:28 | XMS_ITS | Encounter Summary ---
Author Organization [facility] Address [address] [place] [address] Care Team Providers Care Doll Repairer Name Role Phone Judy Juarez MD Primary Care Provider Judy Swanson MD Primary Care Provider Lisa Mireles MD Primary Care Provider [phone] uJdy Juarez MD Primary Care Provider Lisa Mireles MD Primary Care Provider [phone] Encounter Details Date Type Department Care Team Description 02/17/2020 Drip Molder Report Medical Records [address] [place] [address] Mary Colvin, SENIOR IT PROJECT MANAGER [address] [address] Social History Tobacco Use Types [...] on filedocumented in this encounter Care Teams Doll Repairer Relationship Specialty Start Date End Date Judy Juarez MD PCP - General Internal Medicine 01/14/17 10/23/20 Judy Juarez MD PCP - General Internal Medicine 10/24/20 11/28/20 Lisa Santos MD [address] [place] [address] PCP - General Internal Medicine 11/29/20 02/12/22 Judy Juarez MD [address] [place] [address]13 PCP - General Internal Medicine 02/13/22 02/14/22 Lisa Santos MD [address] [place] [address] 28383 PCP - General Internal Medicine 02/15/22 documented as of this encounter
--- OUTSIDE RECORDS SUMMARY | 2024-10-28 17:28 | XMS_ITS | Encounter Summary ---
Author Organization [facility] Address [address] [place] [address] Care Team Providers Care Hand Method Lasting Machine Operator Name Role Phone Judy Juarez MD Primary Care Provider Judy Swanson MD Primary Care Provider Lisa Mireles MD Primary Care Provider [phone] Judy Juarez MD Primary Care Provider Lisa Mireles MD Primary Care Provider [phone] Reason for Visit * Reason Onset Date Comments APPOINTMENT 07/03/2018 external echo Encounter Details Date Type Department Care Team Description 07/03/2018 Telephone [facility] - [address] [address] Judy Juarez MD APPOINTMENT (external echo) Social History Tobacco Use Types Packs/Day Years [...] encounter Miscellaneous Notes * Telephone Encounter - Thu Irene - 07/07/2018 8:39 AM EST Form faxed to [facility] for authorization [id number] * Telephone Encounter - Zander Burns - 07/03/2018 10:54 AM EST Dear provider, due to limited access at this time, the echocardiogram order you placed for Antonio Harrington has been sent externally to [facility] to be performed. The order has been faxed to our Prior Authorization pool. You are not required to take any further action. documented in this encounter Plan of Treatment Not on file documented as of this encounter Visit Diagnoses Not on filedocumented in this encounter Care Teams Hand Method Lasting Machine Operator Relationship Specialty Start Date End Date Judy Juarez MD PCP - General Internal Medicine 01/14/17 10/23/20 Judy Juarez MD PCP - General Internal Medicine 10/24/20 11/28/20 Lisa Santos MD [address] [place] [address] PCP - General Internal Medicine 11/29/20 02/12/22 Judy Juarez MD [address] [place], [place] [address] PCP - General Internal Medicine 02/13/22 02/14/22 Lisa Santos MD [address] [place] [address] PCP - General Internal Medicine 02/15/22 documented as of this encounter
--- OUTSIDE RECORDS SUMMARY | 2024-10-28 17:28 | XMS_ITS | Encounter Summary ---
Author Organization [facility] Address [address] [place] [address] Care Team Providers Care Sheetfed Press Operator Name Role Phone Judy Juarez MD Primary Care Provider Judy Swanson MD Primary Care Provider Lisa Mireles MD Primary Care Provider [phone] Judy Juarez MD Primary Care Provider Lisa Mireles MD Primary Care Provider [phone] Encounter Details Date Type Department Care Team Description 01/13/2020 Telephone Gastroenterology - [place] [address] [address] Kain Carolina PA-C [address] [address] Social History Tobacco Use Types Packs/Day Years [...] on filedocumented in this encounter Care Teams Sheetfed Press Operator Relationship Specialty Start Date End Date Judy Juarez MD PCP - General Internal Medicine 01/14/17 10/23/20 Judy Juarez MD PCP - General Internal Medicine 10/24/20 11/28/20 Lisa Santos MD [address] [place] [address] PCP - General Internal Medicine 11/29/20 02/12/22 Judy Juarez MD [address] [place] [address] PCP - General Internal Medicine 02/13/22 02/14/22 Lisa Santos MD [address] [place] [address] PCP - General Internal Medicine 02/15/22 documented as of this encounter
--- OUTSIDE RECORDS SUMMARY | 2024-10-28 17:28 | XMS_ITS ---
Author Organization [facility] on Care Team Providers Care Finance Accounting Internship Name Role Phone Katie Whatley Unavailable Unavailable Angel Mariano Unavailable Unavailable Dalia Wilson Unavailable Unavailable Allergies and adverse reactions Code CodeSystem Substance Reaction Severity StartDate Concern Status 7984 RXNORM Penicillin Unknown 08/30/2017 active Care Team Name Role Address Phone Organization Dates Angel Mariano PCP [address] [place] [address], [address], [place] (Office[place] : [facility] 08/30/2017 - 09/13/2017 Katie Whatley Attending Physician [address] [place] [address], [place] (Office): [facility] 08/30/2017 - 09/13/2017 Dalia Wilson Attending Physician [address] [place] [address], [address], [place] (Office): : [facility] 08/30/2017 - 09/13/2017 Mental Status Section Date Assessment Total Score Description 09/13/2017 BIMS 15 cognitively int act CAM 0 No delirium ind icated PHQ-9 00 09/06/2017 BIMS 15 cognitively int act CAM 0 No delirium ind icated PHQ-9 03 minimal depress ion Problems Problem # Description Date of onset Resolved Date Code CodeSystem Concern Status 1 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 08/30/[address] active 2 ANXIETY DISORDER, UNSPECIFIED 08/30/[address] active 3 DIFFICULTY IN WALKING, NOT ELSEWHERE CLASSIFIED 08/30/[address] active 4 HYPERLIPIDEMIA, UNSPECIFIED 08/30/[address] active 5 MAJOR DEPRESSIVE DISORDER, RECURRENT, UNSPECIFIED 08/30/[address] active 6 MULTIPLE FRACTURES OF RIBS, BILATERAL, SUBSEQUENT ENCOUNTER FOR FRACTURE WITH ROUTINE HEALING 08/30/[address] active 7 MUSCLE WEAKNESS (GENERALIZED) 08/30/[address] active 8 OTHER FRACTURE OF UNSPECIFIED LUMBAR VERTEBRA, SUBSEQUENT ENCOUNTER FOR FRACTURE WITH ROUTINE HEALING 08/30/[address] active 9 UNSPECIFIED ABNORMALITIES OF GAIT AND MOBILITY 08/30/[address] active 10 UNSPECIFIED ASTHMA, UNCOMPLICATED 08/30/[address] active 11 UNSTEADINESS ON FEET 08/30/[address] active Reason for Referral No Reasons for Referral Entered Social History Social History Observation Description Start Date End Date Code Code System Current Smoking Status Tobacco smoking consumption unknown 961572376 SNOMED CT Sex Assigned At Female 1970 28217-8 [facility] Vital Signs Code Code System Vitals Name Values and Units Timing Information 9279-1 [facility] Respiratory Rate Value=18.0 Units=/m in 09/13/2017 8462-4 [facility] Blood Pressure-Diastolic Value=65 Un its=mmHg 09/13/2017 8480-6 [facility] Blood Pressure-Systolic Value=99 Uni ts=mmHg 09/13/2017 8310-5 [facility] Body Temperature Value=98.3 Units=?? F 09/13/2017 8867-4 [facility] Heart rate Value=78.0 Units=/min 04/2018 59677-9 [facility] O2 % BldC Oximetry Value=97.0 Units= % 09/12/2017 79664-4 [facility] Pain Level Value=6.0 09/12/2017 37436-2 [facility] Weight Mmzyi=304.0 Units=Lbs 12/2017
--- OUTSIDE RECORDS SUMMARY | 2024-10-28 17:28 | XMS_ITS | Encounter Summary ---
Author Organization [facility] Address [address] [place] [address] Care Team Providers Care Side Laster Tack Name Role Phone Judy Juarez MD Primary Care Provider Norman Jain Primary Care Provider Judy Harris MD Primary Care Provider Judy Swanson MD Primary Care Provider Lisa Mireles MD Primary Care Provider [phone] Judy Juarez MD Primary Care Provider Lisa Mireles MD Primary Care Provider [phone] Encounter Details Date Type Department Care Team Description 12/07/2015 Transfer Records Medical Records [address] [place] [address] Abstract, Provider Social History Tobacco Use Types [...] on filedocumented in this encounter Care Teams Side Laster Tack Relationship Specialty Start Date End Date Judy Juarez MD PCP - General Internal Medicine 10/12/15 12/02/16 Radhika, Norman PCP - General Internal Medicine 12/03/16 01/13/17 Judy Juarez MD PCP - General Internal Medicine 01/14/17 10/23/20 Judy Juarez MD PCP - General Internal Medicine 10/24/20 11/28/20 Lisa Santos MD [address] [place] [address] PCP - General Internal Medicine 11/29/20 02/12/22 Judy Juarez MD [address] [place] [address] PCP - General Internal Medicine 02/13/22 02/14/22 Lisa Santos MD [address] [place] [address] PCP - General Internal Medicine 02/15/22 documented as of this encounter
--- OUTSIDE RECORDS SUMMARY | 2024-10-28 17:28 | XMS_ITS | Encounter Summary ---
Author Organization [facility] Address [address] [place] [address] Care Team Providers Care Rn Registry Name Role Phone Judy Juarez MD Primary Care Provider Judy Swanson MD Primary Care Provider Lisa Mireles MD Primary Care Provider [phone] Judy Juarez MD Primary Care Provider Lisa Mireles MD Primary Care Provider [phone] Encounter Details Date Type Department Care Team Description 09/03/2018 Dba Manager Report Medical Records [address] [place] [address] Gerber Vazquez MD Social History Tobacco Use [...] on filedocumented in this encounter Care Teams Rn Registry Relationship Specialty Start Date End Date Judy Juarez MD PCP - General Internal Medicine 01/14/17 10/23/20 Judy Juarez MD PCP - General Internal Medicine 10/24/20 11/28/20 Lisa Santos MD [address] [place] [address] PCP - General Internal Medicine 11/29/20 02/12/22 Judy Juarez MD [address] [place] [address] 87266 PCP - General Internal Medicine 02/13/22 02/14/22 Lisa Santos MD [address] [place] [address] 86765 PCP - General Internal Medicine 02/15/22 documented as of this encounter
--- OUTSIDE RECORDS SUMMARY | 2024-10-28 17:28 | XMS_ITS | Encounter Summary ---
Author Organization [facility] Address [address] [place] [address] Care Team Providers Care Magnetic Resonance Imaging Coordinator Name Role Phone Judy Juarez MD Primary Care Provider Norman Jain Primary Care Provider Judy Harris MD Primary Care Provider Judy Swanson MD Primary Care Provider Lisa Mireles MD Primary Care Provider [phone] Judy Juarez MD Primary Care Provider Lisa Mireles MD Primary Care Provider [phone] Encounter Details Date Type Department Care Team Description 12/06/2015 [facility] Medical Records [address] [place] [address] Abstract, Provider Social History Tobacco Use Types [...] on filedocumented in this encounter Care Teams Magnetic Resonance Imaging Coordinator Relationship Specialty Start Date End Date Judy Juarez MD PCP - General Internal Medicine 10/12/15 12/02/16 Radhika, Pcp PCP - General Internal Medicine 12/03/16 01/13/17 Judy Juarez MD PCP - General Internal Medicine 01/14/17 10/23/20 Judy Juarez MD PCP - General Internal Medicine 10/24/20 11/28/20 Lisa Santos MD [address] [place] [address] PCP - General Internal Medicine 11/29/20 02/12/22 Judy Juarez MD [address] [place] [address] 20361 PCP - General Internal Medicine 02/13/22 02/14/22 Lisa Santos MD [address] [place] [address] 88065 PCP - General Internal Medicine 02/15/22 documented as of this encounter
--- OUTSIDE RECORDS SUMMARY | 2024-10-28 17:28 | XMS_ITS | Encounter Summary ---
Author Organization [facility] Address [address] [place] [address] Care Team Providers Care Cnc Milling Machine Operator Name Role Phone Judy Juarez MD Primary Care Provider Norman Jain Primary Care Provider Judy Harris MD Primary Care Provider Judy Swanson MD Primary Care Provider Lisa Mireles MD Primary Care Provider Judy Juarez MD Primary Care Provider Lisa Mireles MD Primary Care Provider [phone] Encounter Details Date Type Department Care Team Description 01/06/2016 [place] Report Medical Records [address] [place] [address] Rehab, [facility] [address] [place] [address] Social History Tobacco Use Types Packs/Day Years [...] on filedocumented in this encounter Care Teams Cnc Milling Machine Operator Relationship Specialty Start Date End Date Judy Juarez MD PCP - General Internal Medicine 10/12/15 12/02/16 Radhika, Pcp PCP - General Internal Medicine 12/03/16 01/13/17 Judy Juarez MD PCP - General Internal Medicine 01/14/17 10/23/20 Judy Juarez MD PCP - General Internal Medicine 10/24/20 11/28/20 Lisa Santos MD [address] [place] [address] 76378 PCP - General Internal Medicine 11/29/20 02/12/22 Judy Juarez MD [address] [place] [address] 74856 PCP - General Internal Medicine 02/13/22 02/14/22 Lisa Santos MD [address] [place] [address] 15327 PCP - General Internal Medicine 02/15/22 documented as of this encounter
--- OUTSIDE RECORDS SUMMARY | 2024-10-28 17:28 | XMS_ITS | Encounter Summary ---
Author Organization [facility] Address [address] [place] [address] Care Team Providers Care Director Financial Analysis Name Role Phone Judy Juarez MD Primary Care Provider Judy Swanson MD Primary Care Provider Lisa Mireles MD Primary Care Provider [phone] Judy Juarez MD Primary Care Provider Lisa Mireles MD Primary Care Provider [phone] Encounter Details Date Type Department Care Team Description 08/07/2018 Orders Only Medical Records [address] [place] [address] Dinah Ortiz PA-C Social History Tobacco Use [...] filedocumented in this encounter Care Teams Director Financial Analysis Relationship Specialty Start Date End Date Judy Juarez MD PCP - General Internal Medicine 01/14/17 10/23/20 Judy Juarez MD PCP - General Internal Medicine 10/24/20 11/28/20 Lisa Santos MD [address] [place] [address]20 PCP - General Internal Medicine 11/29/20 02/12/22 Judy Juarez MD [address] [place] [address] 19659 PCP - General Internal Medicine 02/13/22 02/14/22 Lisa Santos MD [address] [place] [address] 80654 PCP - General Internal Medicine 02/15/22 documented as of this encounter
--- OUTSIDE RECORDS SUMMARY | 2024-10-28 17:28 | XMS_ITS | Encounter Summary ---
Author Organization [facility] Address [address] [place] [address] Care Team Providers Care Rrts Name Role Phone Judy Juarez MD Primary Care Provider Judy Swanson MD Primary Care Provider Lisa Mireles MD Primary Care Provider [phone] Judy Juarez MD Primary Care Provider Lisa Mireles MD Primary Care Provider [phone] Encounter Details Date Type Department Care Team Description 05/07/2018 Crown Wheel Assembler Report Medical Records [address] [place] [address] Ashutosh Gaytan MD Social History Tobacco Use Types Packs/Day [...] on filedocumented in this encounter Care Teams Rrts Relationship Specialty Start Date End Date Judy Juarez MD PCP - General Internal Medicine 01/14/17 10/23/20 Judy Juarez MD PCP - General Internal Medicine 10/24/20 11/28/20 Lisa Santos MD [address] [place] [address]20 PCP - General Internal Medicine 11/29/20 02/12/22 Judy Juarez MD [address] [place] [address] 9[address]18 PCP - General Internal Medicine 02/13/22 02/14/22 Lisa Santos MD [address] [place] [address] 96132 PCP - General Internal Medicine 02/15/22 documented as of this encounter
--- OUTSIDE RECORDS SUMMARY | 2024-10-28 17:28 | XMS_ITS | Encounter Summary ---
Author Organization [facility] Address [address] [place] [address] Care Team Providers Care Wool Hat Forming Machine Tender Name Role Phone Judy Juarez MD Primary Care Provider Naresh Garrido Pcp Primary Care Provider Judy Harris MD Primary Care Provider Judy Swanson MD Primary Care Provider UnavailLisa Cosby MD Primary Care Provider [phone] Judy Juarez MD Primary Care Provider Lisa Mireles MD Primary Care Provider [phone] Reason for Visit * Reason Onset Date Comments TEST RESULTS 11/28/2015 Encounter Details Date Type Department Care Team Description 11/28/2015 Telephone Medicine/Pediatrics - [address] [id number] Judy Juarez MD TEST RESULTS Social History [...] on filedocumented in this encounter Care Teams Wool Hat Forming Machine Tender Relationship Specialty Start Date End Date Judy Juarez MD PCP - General Internal Medicine 10/12/15 12/02/16 [facility] PCP - General Internal Medicine 12/03/16 01/13/17 Judy Juarez MD PCP - General Internal Medicine 01/14/17 10/23/20 Judy Juarez MD PCP - General Internal Medicine 10/24/20 11/28/20 Lisa Santos MD [address] [place] [address] PCP - General Internal Medicine 11/29/20 02/12/22 Judy Juarez MD [address] [place] [address] PCP - General Internal Medicine 02/13/22 02/14/22 Lisa Santos MD [address] [place] [address] PCP - General Internal Medicine 02/15/22 documented as of this encounter
--- OUTSIDE RECORDS SUMMARY | 2024-10-28 17:28 | XMS_ITS | Encounter Summary ---
Author Organization [facility] Address [address] [place] [address] Care Team Providers Care Order Entry Name Role Phone Judy Juarez MD Primary Care Provider Norman Jain Primary Care Provider Judy Harris MD Primary Care Provider Judy Swanson MD Primary Care Provider Lisa Mireles MD Primary Care Provider [phone] Judy Juarez MD Primary Care Provider Lisa Mireles MD Primary Care Provider [phone] Encounter Details Date Type Department Care Team Description 03/26/2016 Release of Information Medical Records [address] [place] [address] Abstract, Provider Social History Tobacco Use Types [...] on filedocumented in this encounter Care Teams Order Entry Relationship Specialty Start Date End Date Judy Juarez MD PCP - General Internal Medicine 10/12/15 12/02/16 Radhika, Norman PCP - General Internal Medicine 12/03/16 01/13/17 Judy Juarez MD PCP - General Internal Medicine 01/14/17 10/23/20 Judy Juarez MD PCP - General Internal Medicine 10/24/20 11/28/20 Lisa Santos MD [address] [place] [address]40 PCP - General Internal Medicine 11/29/20 02/12/22 Judy Juarez MD [address] [place] [address]1570 PCP - General Internal Medicine 02/13/22 02/14/22 Lisa Santos MD [address] [place] [address]65[address] PCP - General Internal Medicine 02/15/22 documented as of this encounter
--- OUTSIDE RECORDS SUMMARY | 2024-10-28 17:28 | XMS_ITS | Encounter Summary ---
Author Organization [facility] Address [address] [place] [address] Care Team Providers Care Volunteer Services Assistant Name Role Phone Lisa Santos MD Primary Care Provider [phone] Judy Juarez MD Primary Care Provider [facility] Lisa Santos MD Primary Care Provider [phone] Reason for Visit * Reason Comments E-prescribe Rx Request Encounter Details Date Type Department Care Team Description 01/11/2022 Refill Gastroenterology - [place] [address] [address] Kain Carolina PA-C [address] [address] E-prescribe Rx Request Social History Tobacco Use [...] encounter Miscellaneous Notes * Telephone Encounter - Corine Soto M.A. - 01/11/2022 1:45 PM EDT Last office visit : 12/22/2019 Next office visit not scheduled documented in this encounter Plan of Treatment Not on file documented as of this encounter Visit Diagnoses Not on filedocumented in this encounter Care Teams Volunteer Services Assistant Relationship Specialty Start Date End Date Lisa Santos MD [address] [place] [address] PCP - General Internal Medicine 11/29/20 02/12/22 Judy Juarez MD [address] [place] [address] PCP - General Internal Medicine 02/13/22 02/14/22 Lisa Santos MD [address] [place] [address] PCP - General Internal Medicine 02/15/22 documented as of this encounter
--- OUTSIDE RECORDS SUMMARY | 2024-10-28 17:28 | XMS_ITS | Encounter Summary ---
Author Organization [facility] Address [address] [place] [address] Care Team Providers Care Rocket Engine Component Mechanic Name Role Phone Judy Juarez MD Primary Care Provider Judy Swanson MD Primary Care Provider Lisa Mireles MD Primary Care Provider [phone] Judy Juarez MD Primary Care Provider Lisa Mireles MD Primary Care Provider [phone] Reason for Visit * Reason Onset Date Comments refill request 01/28/2017 Encounter Details Date Type Department Care Team Description 01/28/2017 Refill Medicine/Pediatrics - [address] [address] Judy Juarez MD refill request Social History Tobacco Use [...] encounter Miscellaneous Notes * Telephone Encounter - Zofia Shaikh M.A. - 01/28/2017 11:59 AM EDT Source prescription for refill request was discontinued. Last RX to pharmacy 12/19/16 #30 5R. Request refused with notation to pharmacy. * Telephone Encounter - Martha Thorne - 01/28/2017 8:40 AM EDT Patient would like script to be: E-PRESCRIBED/FAXED TO PHARMACY WHEN WAS THE PATIENT'S LAST APPOINTMENT IN ADULT MEDICINE? [id number] WHEN WAS THE LAST TIME THE PATIENT SAW THEIR PCP? [phone] Does patient have an upcoming appointment? Yes [id number] (THE MEDICATION REQUESTED IS ON THE MED LIST ABOVE) All of the medications requested were on the CURRENT MEDS list Did you check the Pharmacy information above?: YES Patient wants: 30 -day supply Is this a mail order prescription request ? NO Patients current insurance carrier is: Payor: [facility] [facility] [employer] M[employer] / Plan: [facility] / Product Type: HMO [id number] documented in this encounter Plan of Treatment Not on file documented as of this encounter Visit Diagnoses Not on filedocumented in this encounter Care Teams Rocket Engine Component Mechanic Relationship Specialty Start Date End Date Judy Juarez MD PCP - General Internal Medicine 01/14/17 10/23/20 Judy Juarez MD PCP - General Internal Medicine 10/24/20 11/28/20 Lisa Santos MD [address] [place] [address] PCP - General Internal Medicine 11/29/20 02/12/22 Judy Juarez MD [address] [place] [address] PCP - General Internal Medicine 02/13/22 02/14/22 Lisa Santos MD [address] [place] [address] PCP - General Internal Medicine 02/15/22 documented as of this encounter
--- OUTSIDE RECORDS SUMMARY | 2024-10-28 17:28 | XMS_ITS | Encounter Summary ---
Author Organization [facility] Address [address] [place] [address] Care Team Providers Care Silver Designer Name Role Phone Judy Juarez MD Primary Care Provider Judy Swanson MD Primary Care Provider Lisa Mireles MD Primary Care Provider [phone] Judy Juarez MD Primary Care Provider Lisa Mireles MD Primary Care Provider [phone] Encounter Details Date Type Department Care Team Description 08/30/2017 [facility] Medical Records [address] [place] [address] Social History Tobacco Use Types Packs/Day Years [...] on filedocumented in this encounter Care Teams Silver Designer Relationship Specialty Start Date End Date Judy Juarez MD PCP - General Internal Medicine 01/14/17 10/23/20 Judy Juarez MD PCP - General Internal Medicine 10/24/20 11/28/20 Lisa Santos MD [address] [place] [address] PCP - General Internal Medicine 11/29/20 02/12/22 Judy Juarez MD [address] [place] [address] PCP - General Internal Medicine 02/13/22 02/14/22 Lisa Santos MD [address] [place] [address] PCP - General Internal Medicine 02/15/22 documented as of this encounter
--- OUTSIDE RECORDS SUMMARY | 2024-10-28 17:28 | XMS_ITS | Encounter Summary ---
Author Organization [facility] Address [address] [place] [address] Care Team Providers Care Special Events Assistant Name Role Phone Judy Juarez MD Primary Care Provider Judy Swanson MD Primary Care Provider Lisa Mireles MD Primary Care Provider [phone] Judy Juarez MD Primary Care Provider Lisa Mireles MD Primary Care Provider [phone] Encounter Details Date Type Department Care Team Description 01/16/2018 Orders Only Medicine/Pediatrics - [address] [address] Dinah Ortiz PA-C Multiple fractures of ribs, bilateral, sequela Social History Tobacco Use Types Packs/Day Years [...] Procedure Name Priority Date/Time Associated Diagnosis Comments CHG RADEX STERNUM MINIMUM 2 VIEWS Routine 01/10/2018 Multiple fractures of ribs, bilateral, sequela documented in this encounter Results * X-RAY EXAM OF BREASTBONE, 2+ VIEWS (01/10/2018) Dinah Ortiz PA-C RADIOLOGY documented in this encounter Visit Diagnoses Diagnosis Multiple fractures of ribs, bilateral, sequela documented in this encounter Care Teams Special Events Assistant Relationship Specialty Start Date End Date Judy Juarez MD PCP - General Internal Medicine 01/14/17 10/23/20 Judy Juarez MD PCP - General Internal Medicine 10/24/20 11/28/20 Lisa Santos MD [address] [place] [address] PCP - General Internal Medicine 11/29/20 02/12/22 Judy Juarez MD [address] [place] [address] 67355 PCP - General Internal Medicine 02/13/22 02/14/22 Lisa Santos MD [address] [place] [address] 17029 PCP - General Internal Medicine 02/15/22 documented as of this encounter
--- OUTSIDE RECORDS SUMMARY | 2024-10-28 17:28 | XMS_ITS | Encounter Summary ---
Author Organization [facility] Address [address] [place] [address] Care Team Providers Care Quarry Supervisor Open Pit Name Role Phone Judy Juarez MD Primary Care Provider Norman Jain Primary Care Provider Judy Harris MD Primary Care Provider Judy Swanson MD Primary Care Provider Lisa Mireles MD Primary Care Provider [phone] Judy Juarez MD Primary Care Provider Lisa Mireles MD Primary Care Provider [phone] Encounter Details Date Type Department Care Team Description 03/27/2016 Machinist Instructor Report Medical Records [address] [place] [address] Corine Hyde, RD, LDN [address] [place] [address] Social History Tobacco Use Types Packs/Day Years [...] on filedocumented in this encounter Care Teams Quarry Supervisor Open Pit Relationship Specialty Start Date End Date Judy Juarez MD PCP - General Internal Medicine 10/12/15 12/02/16 Radhika, Norman PCP - General Internal Medicine 12/03/16 01/13/17 Judy Juarez MD PCP - General Internal Medicine 01/14/17 10/23/20 Judy Juarez MD PCP - General Internal Medicine 10/24/20 11/28/20 Lisa Santos MD [address] [place] [address] PCP - General Internal Medicine 11/29/20 02/12/22 Judy Juarez MD [address] [place], [place] [phone] PCP - General Internal Medicine 02/13/22 02/14/22 Lisa Santos MD [address] [place] [address] PCP - General Internal Medicine 02/15/22 documented as of this encounter
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
--- OUTSIDE RECORDS SUMMARY | 2024-10-28 17:28 | XMS_ITS | Encounter Summary ---
Author Organization [facility] Address [address] [place] [address] Care Team Providers Care Floral Clerk Name Role Phone Lisa Santos MD Primary Care Provider [phone] Judy Juarez MD Primary Care Provider [facility] Lisa Santos MD Primary Care Provider [phone] Encounter Details Date Type Department Care Team Description 03/17/2021 Business Doc Medical Records [address] [place] [address] Abstract, Provider Social History Tobacco Use Types [...] have Coronavirus / COVID-19? No / Unsure 03/16/2021 10:54 AM EDT documented as of this encounter Plan of Treatment Not on file documented as of this encounter Visit Diagnoses Not on filedocumented in this encounter Care Teams Floral Clerk Relationship Specialty Start Date End Date Lisa Santos MD [address] [place] [address] [id number] PCP - General Internal Medicine 11/29/20 02/12/22 Judy Juarez MD [address] [place] [address] PCP - General Internal Medicine 02/13/22 02/14/22 Lisa Santos MD [address] [place] [address] PCP - General Internal Medicine 02/15/22 documented as of this encounter
--- OUTSIDE RECORDS SUMMARY | 2024-10-28 17:28 | XMS_ITS | Encounter Summary ---
Author Organization [facility] Address [address] [place] [address] Care Team Providers Care Gunite Nozzle Operator Name Role Phone Judy Juarez MD Primary Care Provider Norman Jain Primary Care Provider Judy Harris MD Primary Care Provider Judy Swanson MD Primary Care Provider Lisa Mireles MD Primary Care Provider [phone] Judy Juarez MD Primary Care Provider Lisa Mireles MD Primary Care Provider [phone] Encounter Details Date Type Department Care Team Description 10/28/2015 VISUAL EFFECTS ARTIST/[facility] Report Medical Records [address] [place] [id number] Abstract, Provider Social History Tobacco Use Types [...] on filedocumented in this encounter Care Teams Gunite Nozzle Operator Relationship Specialty Start Date End Date Judy Juarez MD PCP - General Internal Medicine 10/12/15 12/02/16 Radhika, Norman PCP - General Internal Medicine 12/03/16 01/13/17 Judy Juarez MD PCP - General Internal Medicine 01/14/17 10/23/20 Judy Juarez MD PCP - General Internal Medicine 10/24/20 11/28/20 Lisa Santos MD [address] [place] [address] PCP - General Internal Medicine 11/29/20 02/12/22 Judy Juarez MD [address] [place] [address] PCP - General Internal Medicine 02/13/22 02/14/22 Lisa Santos MD [address] [place] [address] PCP - General Internal Medicine 02/15/22 documented as of this encounter
--- OUTSIDE RECORDS SUMMARY | 2024-10-28 17:28 | XMS_ITS | Patient Health Record ---
Author Organization [facility] Address [address] [facility] [address] [place] [address] Care Team Providers Care Frit Burner Name Role Phone BRITNEY STOREY Primary Care Provider Unavailab Debo Seymour Unavailable [phone] Allergies Allergen (clinical drug ingredient) Drug/Non Drug [...] a day for 30 day(s) Active Nystatin 860753 UNIT/GM 1 application Ex ternally Twice a [...] Status W/U Status Risk Notes Problem Menopause (720859775) Menopausal and female climacteric states (N95.1) Active confirmed Problem Postmenopausal atrophic vaginitis (91206690) Postmenopausal atrophic vaginitis (N95.2) Active confirmed Problem Polycystic ovary syndrome (disorder) (869154941) Polycystic ovarian syndrome (E28.2) Active confirmed Problem Morbid obesity (disorder) (399204790) Morbid (severe) obesity due to excess calories (E66.01) Active confirmed Problem Hyperlipidemia (46952136) Hyperlipidemia, unspecified (E78.5) Active confirmed Problem Recurrent depression (377254876) Other recurrent depressive disorders (F33.8) Active confirmed Problem Anxiety disorder (039455672) Anxiety disorder, unspecified (F41.9) Active confirmed Problem Vitreous opacities (314450634) Other vitreous opacities, unspecified eye (H43.399) Active confirmed Problem Asthma (823602484) Other asthma (J45.998) Active confirmed Problem Crohn's disease (44339388) Crohn's disease, unspecified, with unspecified complications (K50.919) Active confirmed Problem Fatty liver (740638368) Fatty (change of) liver, not elsewhere classified (K76.0) Active confirmed Problem Ankylosing spondylitis (1910965) Ankylosing spondylitis of unspecified sites in spine (M45.9) Active confirmed Problem Gastroesophageal reflux disease with esophagitis (disorder) (922564785) Gastro-esophageal reflux disease with esophagitis, without bleeding (K21.00) Active confirmed Vital Signs Temperature 97.4 degrees Fahrenheit 06/03/2024 Blood pressure diastolic 84 mm Hg 06/03/2024 Height 59 in 06/03/2024 Blood pressure systolic 124 mm Hg 06/03/2024 Weight 193 lbs 06/03/2024 BMI 38.98 kg/m2 06/03/2024 Encounters Encounter Location Date Provider Diagnosis [facility] [address] [place] [address] [address] [place] [address] 06/19/2024 Debo Patel [facility] [place] [address] [address] [address] 06/03/2024 Debo Patel Encounter for gynecological examination (general) (routine) without abnormal findings Z01.419 ; Encounter for screening mammogram for malignant neoplasm of breast Z12.31 and Acute candidiasis of vulva and vagina B37.31 [facility] [place] [address] [address] [employer] [address] [address] 07/30/2024 Debo Patel Assessments Encounter Date Diagnosis [...] Provider Name:Debo head, 06/10/2025 02:40:00 PM, [address] [facility], [address], [place], [address], Insurance Providers Payer Name Payer Address Payer Phone Subscriber Number Group Number Insured Name Patient Relationship to Insured Coverage Start Date Coverage End Date [facility] [address] [place] [address] [id number] GONZALO JAIME Self - patient is the insured Medical [...]
--- OUTSIDE RECORDS SUMMARY | 2024-10-28 17:29 | XMS_ITS | Encounter Summary ---
Author Organization [facility] Address [address] [place] [address] Care Team Providers Care Theater Technician Name Role Phone Judy Juarez MD Primary Care Provider Norman Jain Primary Care Provider Judy Harris MD Primary Care Provider Judy Swanson MD Primary Care Provider Lisa Mireles MD Primary Care Provider [phone] Judy Juarez MD Primary Care Provider Lisa Mireles MD Primary Care Provider [phone] Encounter Details Date Type Department Care Team Description 06/12/2016 Release of Information Medical Records [address] [place] [id number] Abstract, Provider Social History Tobacco Use Types [...] on filedocumented in this encounter Care Teams Theater Technician Relationship Specialty Start Date End Date Judy Juarez MD PCP - General Internal Medicine 10/12/15 12/02/16 Radhika, Norman PCP - General Internal Medicine 12/03/16 01/13/17 Judy Juarez MD PCP - General Internal Medicine 01/14/17 10/23/20 Judy Juarez MD PCP - General Internal Medicine 10/24/20 11/28/20 Lisa Santos MD [address] [place] [address] PCP - General Internal Medicine 11/29/20 02/12/22 Judy Juarez MD [address] [place] [address] PCP - General Internal Medicine 02/13/22 02/14/22 Lisa Santos MD [address] [place] [address] PCP - General Internal Medicine 02/15/22 documented as of this encounter
--- OUTSIDE RECORDS SUMMARY | 2024-10-28 17:29 | XMS_ITS ---
Author Organization [facility] Address [address] [place] [address] Care Team Providers Care Franchise Sales Manager Name Role Phone BRITNEY STOREY Primary Care Provider Unavailab Debo Seymour Unavailable [phone] Allergies Allergen (clinical drug ingredient) Drug/Non Drug [...] Neg BLOOD Neg REASON FOR VISIT Annual VALANCE CUTTER Physical, Annual VALANCE CUTTER Physical 50-59* Medications Medication SIG (Take, Route, [...] 50 MG as directed Orally Active Nystatin 767796 UNIT/GM 1 application Ex ternally Twice a [...] Encounters Encounter Location Date Provider Diagnosis Total [address] [place] [address] 06/03/2024 Debo Patel Encounter for gynecological examination [...] Name:Debo head, 06/10/2025 02:40:00 PM, [facility], [address], [place], [address], Progress Notes * JAIME SÁNCHEZDOB:1970 (54 yo F)Acc No.[id number]:06/03/2024 PROGRESS NOTES Patient:?JAIME SÁNCHEZ Appointment Provider:?Debo head M.D. :1970???Age:54 Y???Sex:Female D ate:06/03/2024 Address:[address] [place], [place] [id number] Pcp:BRITNEY STOREY Subjective: * Chief Complaints: * ???Annual VALANCE CUTTER PhysicalAnnual VALANCE CUTTER Physical 50-59* * HPI: ???New/Follow-up Patient Consult:? [...] MAMMOGRAM WAS DONE IN SEP 2022 AT [facility].? WE WILL TRY TO GET THE RESULTS. [...] adequate calcium via diet and supplementation ?Significant VALANCE CUTTER problems:?no significant animator symptoms or problems * ROS:?general:?no?chest pain.?no?palpitations.?no?headache.?no?cough.?no?shortness of breath.?no?fever.?no?unexplained weight loss.?no?nausea/vomiting.?no?change in bowel movements.?no blood in stool.?no?genitourinary complaints.?no?skin complaints.? * Medical History:? * Bag Tester History:?/ Para?0/0.?Sexual activity?currently sexually active.?Last Pap Smear:?05/29/23 NIL, NEG HPV, 01/25/21, NIL, NEG HPV.?Mammogram:?2022.?Abnormal Pap Smear:?Yes.?LMP and menses?[place].?Colonoscopy?2022.? * OB History:?Total pregnancies?0.? * Surgical History:?Colonoscop [...] 1 puff Inhalation Twice a day Nystatin 402601 UNIT/GM Powder 1 application Externally Twice a [...] puff Inhalation Twice a day Taking Nystatin 755075 UNIT/GM Powder 1 application Externally Twice a [...] BP:124/84mm Hg, Temp:97.4F. * Examination: ???General Exam: ?CONSTITUTIONAL:?General Appearance:?alert, in no acute distress, normal, well nourished ?NECK/THYROID:?Inspection/Palpation:?normal ?Thyroid:?normal size and shape ?RESPIRATORY:?Auscultation: clear to auscultation bilaterally, Respiratory Effort: normal.?CARDIOVASCULAR:?Auscultation: regular rate and rhythm.?BREAST, Right:?Inspection/Palpation:?no discharge, no masses present, no nipple retraction, no skin changes, no skin dimpling, no tenderness, no lymphadenopathy, no axillary mass, no axillary tenderness ?BREAST, Left:?Inspection/Palpation:?no discharge, no masses present, no nipple retraction, no skin changes, no skin dimpling, no tenderness, no lymphadenopathy, no axillary mass, no axillary tenderness ?GASTROINTESTINAL:?Abdomen:?no masses, nontender, nondistended ?Liver and Spleen:?normal ?Hernias:?no hernias present, no inguinal adenopathy ?MUSCULOSKELETAL:?Inspection/Palpation:?no clubbing, cyanosis, or edema ?SKIN:?Skin:?normal ?NEURO/PSYCH:?Orientation:?time , place, person ?Mood/Affect:?normal?Genitourinary: ?EXTERNAL GENITALIA:?External Genitalia:?normal, no lesions ?VAGINA:?Vagina:?normal appearance, no abnormal discharge, no lesions ?BLADDER:?Bladder:?no mass, nontender ?URETHRA:?Urethra:?no erythema or lesions present ?CERVIX:?Cervix:?no lesions, nontender ?UTERUS:?Uterus:?nontender, normal contour, normal mobility, normal size ?ADNEXA:?Adnexa:?no masses, no tenderness ?ANUS AND PERINEUM:?Anus/Perineum:?visually normal??? Assessment: * Assessment: 1.?Encounter for gynecologic al examination (general) (routine) without abnormal findings - Z01.419???2.?Encounter for screening mammogram for malignant neoplasm of breast - Z12.31???3.?Acute candidiasis of vulva and vagina - B37.31??? Plan: * Treatment: ? Value Reference Range ?PH 8.0 * ?PROTEIN Neg * ?GLUCOSE Neg * ?BLOOD Neg * D.PILAR 06/03/2024 03:02:5 5 PM EDT > Notes: [...] Notes: DISCUSSED FINDINGS, DX AND TX OPTIONS. MUSA IS ON A STATIN AND CANNOT BE [...] * Images: Billing Information: * Visit Code:? 52428 Preventive Care New Pt. Age 40-64. 40062 Preventive Care Est Pt. Age 40-64. * Procedure Codes:? * Sign off status: Completed true * Appointment Provider:?Debo Patel M.D. Date:?06/03/2024 Generated for Jasmyn gordon/Linda/Gregorioitting on:?10/28/2024 05:28 PM EDT History and Physical Notes * HPI (History [...] MAMMOGRAM WAS DONE IN SEP 2022 AT [facility]. WE WILL TRY TO GET THE RESULTS. HER LAST PAP TEST IN 2022 WAS NEGATIVE AND HPV NEGATIVE. SHE HAD A COLONOSCOPY DONE IN 2022 AND POLYPS WERE NOTED. SHE WILL NEED ANOTHER COLONOSCOPY IN 2025. PFIZER X 3. Annual General Health Maintenance: Current breast complaints:: no breast pain, mass, discharge, or skin changes Urinary problems:: patient darshana fernández no urinary health problems or bowel health problems Calcium intake:: takes adequ ate calcium via diet and supplementation Significant VALANCE CUTTER problems:: n o significant animator symptoms or problems Examination Category Sub-Category Detail [...]
--- OUTSIDE RECORDS SUMMARY | 2024-10-28 17:29 | XMS_ITS | Encounter Summary ---
Author Organization [facility] Address [address] [place] [address] Care Team Providers Care Oracle Hyperion Consultant Name Role Phone Judy Juarez MD Primary Care Provider Judy Swanson MD Primary Care Provider Lisa Mireles MD Primary Care Provider [phone] Judy Juarez MD Primary Care Provider Lisa Mireles MD Primary Care Provider [phone] Encounter Details Date Type Department Care Team Description 11/10/2017 Window Covering Sales Consultant Report Medical Records [address] [place] [address] Abstract, Provider Social History Tobacco Use Types [...] on filedocumented in this encounter Care Teams Oracle Hyperion Consultant Relationship Specialty Start Date End Date Judy Juarez MD PCP - General Internal Medicine 01/14/17 10/23/20 Judy Juarez MD PCP - General Internal Medicine 10/24/20 11/28/20 Lisa Santos MD [address] [place] [address] PCP - General Internal Medicine 11/29/20 02/12/22 Judy Juarez MD [address] [place] [address] PCP - General Internal Medicine 02/13/22 02/14/22 Lisa Santos MD [address] [place] [address] 136[address] PCP - General Internal Medicine 02/15/22 documented as of this encounter
--- OUTSIDE RECORDS SUMMARY | 2024-10-28 17:29 | XMS_ITS | Encounter Summary ---
Author Organization [facility] Address [address] [place] [address] Care Team Providers Care Employee Benefits Specialist Name Role Phone Judy Juarez MD Primary Care Provider Judy Swanson MD Primary Care Provider Lisa Mireles MD Primary Care Provider [phone] Judy Juarez MD Primary Care Provider Lisa Mireles MD Primary Care Provider [phone] Encounter Details Date Type Department Care Team Description 09/19/2020 Old Medical Records Medical Records [address] [place] [address] Abstract, Provider Social History Tobacco Use Types [...] on filedocumented in this encounter Care Teams Employee Benefits Specialist Relationship Specialty Start Date End Date Judy Juarez MD PCP - General Internal Medicine 01/14/17 10/23/20 Judy Juarez MD PCP - General Internal Medicine 10/24/20 11/28/20 Lisa Santos MD [address] [place] [address] [id number] PCP - General Internal Medicine 11/29/20 02/12/22 Judy Juarez MD [address] [place] [address] PCP - General Internal Medicine 02/13/22 02/14/22 Lisa Santos MD [address] [place] [address] PCP - General Internal Medicine 02/15/22 documented as of this encounter
--- OUTSIDE RECORDS SUMMARY | 2024-10-28 17:29 | XMS_ITS | Encounter Summary ---
Author Organization [facility] Address [address] [place] [address] Care Team Providers Care Buggy Runner Name Role Phone Judy Juarez MD Primary Care Provider Judy Swanson MD Primary Care Provider Lisa Mireles MD Primary Care Provider [phone] Judy Juarez MD Primary Care Provider Lisa Mireles MD Primary Care Provider [phone] Encounter Details Date Type Department Care Team Description 12/26/2018 Tray Service Worker Report Medical Records [address] [place] [address] Nedra Barkley Np Social History Tobacco Use Types Packs/Day Years [...] on filedocumented in this encounter Care Teams Buggy Runner Relationship Specialty Start Date End Date Judy Juarez MD PCP - General Internal Medicine 01/14/17 10/23/20 Judy Juarez MD PCP - General Internal Medicine 10/24/20 11/28/20 Lisa Santos MD [address] [place] [address] PCP - General Internal Medicine 11/29/20 02/12/22 Judy Juarez MD [address] [place] [address] PCP - General Internal Medicine 02/13/22 02/14/22 Lisa Santos MD [address] [place] [address] PCP - General Internal Medicine 02/15/22 documented as of this encounter
== END 2024-10-28 15:57 | disposition home or self-care (01) ==
LOC: HO.HMCFM 14:31
PROVIDERS: PCP Family Medicine; Visit Provider Family Medicine
DX: J45.909 Unspecified asthma, uncomplicated (principal)

== ENCOUNTER → 2024-10-28 14:31 | Outpatient (BNVA) | payer OTHER, SELFPAY | PROVIDERS: PCP Family Medicine; Visit Provider Family Medicine | DX: J45.909 Unspecified asthma, uncomplicated (principal) | CPT/HCPCS: 99212 ==

== ENCOUNTER 2024-11-03 09:19 | Outpatient (REF) | payer OTHER, SELFPAY ==
--- NOTE | ~2024-11-03 | US_ITS ---
CLINICAL HISTORY: R79.89 - Other specified abnormal findings of blood chemistry US abdomen limited Comparison: US/[place]/SR - US ABDOMEN SMITH W ELASTOGRAPHY - 10/08/23 08:31 EST Findings: The pancreatic head and body appear within normal limits. Pancreatic tail is obscured by overlying bowel gas The liver is enlarged in size with the right hepatic lobe measuring 20.5 cm in length. Hepatic echogenicity is within normal limits. No focal hepatic mass is seen. There is no intrahepatic bile duct dilatation. The common duct is 2 mm in diameter. The gallbladder is normal. There is no sonographic Knutson sign. The main portal vein is antegrade. The right kidney is 11.8 cm in length. IMPRESSION: 1. Hepatomegaly. This document has been electronically signed by: Awilda Arroila on 11/04/2024 09:28:15
--- OUTSIDE RECORDS SUMMARY | 2024-11-03 10:24 | XMS_ITS ---
Author Organization [facility] Address [address] [address] Care Team Providers Care Temperature Inspector Name Role Phone BRITNEY STOREY Primary Care Provider Unavailab Debo Seymour Unavailable [phone] REASON FOR VISIT ULTRA - BLOATING PAIN Encounters Encounter Location Date Provider Diagnosis [facility] [address] [place] [address] 06/19/2024 Debo Patel Plan Of Treatment Next Appt Details Provider Name:Debo head, 06/10/2025 02:40:00 PM, [address], [address], [place], [address], Progress Notes * TROY SÁNCHEZBaldoDOB:1970 (54 yo F)Acc No.[id number]:06/19/2024 PROGRESS NOTES Patient:?JAIME SÁNCHEZ Appointment Provider:?Debo head M.D. :1970???Age:54 Y???Sex:Female D ate:06/19/2024 Address:[address] [place], [place] [address] Pcp:BRITNEY STOREY Subjective: * Chief Complaints: * ???1. ULTRA - BLOATING PAIN. * Medical History:? Objective: * Vitals:? Assessment: Plan: * Treatment: * Images: Billing Information: * Visit Code:? * Procedure Codes:? * Electronic signature of Mary Patel MD on 11/03/2024 at 10:24 AM EDT Sign off status: Pending * Appointment Provider:?Debo Patel M.D. Date:?06/19/2024 Generated for Jasmyn gordon/Linda/Fredrick on:?11/03/2024 10:24 AM EDT
--- OUTSIDE RECORDS SUMMARY | 2024-11-03 10:24 | XMS_ITS ---
Author Organization [facility] Address [address] [place] [address] Care Team Providers Care Furnace Cleaner Name Role Phone BRITNEY STOREY Primary Care Provider Unavailab Debo Seymour Unavailable [phone] Allergies Allergen (clinical drug ingredient) Drug/Non Drug [...] Neg BLOOD Neg REASON FOR VISIT Annual GENERAL NEUROLOGIST Physical, Annual GENERAL NEUROLOGIST Physical 50-59* Medications Medication SIG (Take, Route, [...] 50 MG as directed Orally Active Nystatin 162128 UNIT/GM 1 application Ex ternally Twice a [...] Encounters Encounter Location Date Provider Diagnosis Total [address] [place] [address] 06/03/2024 Debo Patel Encounter for gynecological examination [...] Reason: Provider Name:Debo head, 06/10/2025 02:40:00 PM, [facility], [address], [place], [address], Progress Notes * JAIME SÁNCHEZDOB:1970 (54 yo F)Acc No.[id number]:06/03/2024 PROGRESS NOTES Patient:?JAIME SÁNCHEZ Appointment Provider:?Debo head M.D. :1970???Age:54 Y???Sex:Female D ate:06/03/2024 Address:[address] [place], [place] [id number] Pcp:BRITNEY STOREY Subjective: * Chief Complaints: * ???Annual GENERAL NEUROLOGIST PhysicalAnnual GENERAL NEUROLOGIST Physical 50-59* * HPI: ???New/Follow-up Patient Consult:? [...] MAMMOGRAM WAS DONE IN SEP 2022 AT [facility].? WE WILL TRY TO GET THE [...] adequate calcium via diet and supplementation ?Significant GENERAL NEUROLOGIST problems:?no significant elementary principal symptoms or problems * ROS:?general:?no?chest pain.?no?palpitations.?no?headache.?no?cough.?no?shortness of breath.?no?fever.?no?unexplained weight loss.?no?nausea/vomiting.?no?change in bowel movements.?no blood in stool.?no?genitourinary complaints.?no?skin complaints.? * Medical History:? * Forensic Identification Specialist History:?/ Para?0/0.?Sexual activity?currently sexually active.?Last Pap Smear:?05/29/23 NIL, NEG HPV, 01/25/21, NIL, NEG HPV.?Mammogram:?2022.?Abnormal Pap Smear:?Yes.?LMP and menses?[facility].?Colonoscopy?2022.? * OB History:?Total pregnancies?0.? * Surgical History:?Colonoscop [...] 1 puff Inhalation Twice a day Nystatin 738572 UNIT/GM Powder 1 application Externally Twice a [...] puff Inhalation Twice a day Taking Nystatin 771460 UNIT/GM Powder 1 application Externally Twice a [...] * Images: Billing Information: * Visit Code:? 76656 Preventive Care New Pt. Age 40-64. 91911 Preventive Care Est Pt. Age 40-64. * Procedure Codes:? * Sign off status: Completed true * Appointment Provider:?Debo Patel M.D. Date:?06/03/2024 Generated for Jasmyn gordon/Linda/Gregorioitting on:?11/03/2024 10:24 AM EDT History and Physical Notes * HPI [...] MAMMOGRAM WAS DONE IN SEP 2022 AT [facility]. WE WILL TRY TO GET THE [...] ate calcium via diet and supplementation Significant GENERAL NEUROLOGIST problems:: n o significant elementary principal symptoms or problems Examination Category Sub-Category Detail [...]
--- OUTSIDE RECORDS SUMMARY | 2024-11-03 10:24 | XMS_ITS | Clinical Summary ---
Author Organization [facility] [address] [place] [address] [place] [address] Phone Care Team Providers Care Chief Technician X Ray Name Role Phone Lisa Santos MD Primary Care Provider [phone] Allergies Active Allergy Reactions Criticality Noted Date [...] time each day. 2 Active sodium chloride (Ogilvie Saline) 0.65 % nasal drops 3 Drops [...] nodules 05/05/2016 Overview (08/07/2024): on imaging at [place], followed by Dr. Gaytan. CAT scan 04/23/17: [...] PM EST Hospital Encounter Radiology Department - [address] [address] Encounter for screening mammogram for breast cancer [...] ascending colitis on bxy ESOPHAGOGASTRODUODENOSCOPY 09/12/2015 PROCEDURE: ME ESOPHAGOGASTRODUODENOSCOPY TRANSORAL DIAGNOSTIC; COMMENT: Normal with nl duodenal, antral and GE junction bxys BREAST BIOPSY 06/25/2018 Left PROCEDURE: BX BREAST; PERC NEEDLE CORE W/IMAG GUID; COMMENT: BENIGN FIBROADENOMATOUS CHANGES. OTHER SURGICAL HISTORY 02/2021 PROCEDURE: MAMMOGRAM, SCREENING, BOTH BREASTS Medical History Medical History Date Comments Depression with anxiety 10/06/2015 DX:Depre ssion with anxiety; COMMENT: [facility] - therapist Khushi, tries to see her [...] spine (CMS/HCC) 08/2017 DX:Fracture of lumbar spine ([facility]); COMMENT: Macario fracture Sternal fracture 08/2017 DX:Sternal frac ture Crohn's disease (CMS/HCC) DX:Area Intelligence Technician hn's disease ([facility]) Family History Medical History Relation Name Comments [...] is recommended in 1 year. MAMMO LOCATION: [facility], [address] [place] [address], [id number], . -------- FINAL REPORT -------- Dictated By: Roselyn Martinez Dictated Date: 09/03/2024 08:19 ET Assigned Physician: Roselyn Martinez Reviewed and Electronically Signed By: Roselyn Martinez Signed Date: 09/03/2024 08:24 ET Workstation ID: [id number] Transcribed By: Self Edit Transcribed Date: 09/03/2024 [...] is recommended in 1 year. MAMMO LOCATION: [facility], [address] [place] [address], [address], . -------- FINAL REPORT -------- Dictated By: Roselyn Martinez Dictated Date: 09/03/2024 08:19 ET Assigned Physician: Roselyn Martinez Reviewed and Electronically Signed By: Roselyn Martinez Signed Date: 09/03/2024 08:24 ET Workstation ID: [id number] Transcribed By: Self Edit Transcribed Date: 09/03/2024 08:19 ET Result [facility] Lisa Santos MD IMG BI PROCEDURES Final Result * Annual BMP Blood Test (12/06/2020) [facility] Annual BMP Blood Test abstracted Result [facility] Provider HEALTH MAINTENANCE Final Result * Hepatitis C Screening (12/06/2020) [facility] Hepatitis C Screening abstracted Result [facility] Provider HEALTH MAINTENANCE Final Result * (ABNORMAL) Lipid panel (08/21/2019) [facility] LDL/HDL Ratio 4 0 - 4 Triglycerides 186(A) 0 - 150 mg/dL Cholesterol 198 0 - 200 mg/dL HDL 56 >=40 mg/dL LDL Cholesterol 105(A) 0 - 100 mg/dL Blood Venous blood specimen / Unknown Result [facility] Historical Provider LAB BLOOD ORDERABLES Micaela l Result * HIV Screening (01/10/2018) [facility] HIV Screening abstracted Result [facility] Historical Provider HEALTH MAINTENANCE Final Result * Cervical Cancer Screening: HPV (12/12/2015) Cervical Cancer Screening: HPV abstracted, negative Historical Provider HEALTH MAINTENANCE Final Result * Colonoscopy (09/12/2015) Colonoscopy no interpretation , abstracted Anatomical Region Laterality Modality Other Historical Provider HEALTH MAINTENANCE Final Result from Last 3 Months or Most Recently Relevant to Health Maintenance Insurance [facility] MEDIC[facility] Member Subscriber Plan / Payer (Ef fective 2016-Present) Name:Josselin Harrington Relation to Subscriber:Self Name:Josselin Harrington Payer ID:[id number] Group ID:[id number] Type:Not on file Address: [place] [address] [address] [address] Care Teams Chief Technician X Ray Relationship Specialty Start Date End Date Lisa Santos MD [address] [place] [address] PCP - General Internal Medicine 02/15/22
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
--- OUTSIDE RECORDS SUMMARY | 2024-11-03 10:25 | XMS_ITS ---
Author Organization [employer] [facility] Address [address] [facility] [address] [place] [address] Care Team Providers Care Claims Adjuster Name Role Phone BRITNEY STOREY Primary Care Provider UnavailDebo Alford Unavailable [phone] REASON FOR VISIT YEAST INFECTION Encounters Encounter Location Date Provider Diagnosis [facility] [address] [facility] [address] [place] [address] 07/30/2024 Debo Patel Plan Of Treatment Next Appt Details Provider Name:Debo head, 06/10/2025 02:40:00 PM, [address] [facility], [address], [place], [address], Progress Notes * GONZALOTROY GruberBaldoDOB:1970 (54 yo F)Acc No.[id number]:07/30/2024 Patient:?JAIME SÁNCHEZ :1970???Age:54 Y???Sex:Female Address:[address] [place] [address], [address] * true * Date:? Generated for Printi ng/Fajoselyng/eTransmitting on:?11/03/2024 10:24 AM EDT
--- OUTSIDE RECORDS SUMMARY | 2024-11-03 10:25 | XMS_ITS | Patient Health Record ---
Author Organization [employer] [facility] Address [address] [facility] [address] [place] [address] Care Team Providers Care Service Director Name Role Phone BRITNEY STOREY Primary Care Provider Unavailab Debo Seymour Unavailable [phone] Allergies Allergen (clinical drug ingredient) Drug/Non Drug [...] a day for 30 day(s) Active Nystatin 295776 UNIT/GM 1 application Ex ternally Twice a [...] Status W/U Status Risk Notes Problem Menopause (210023976) Menopausal and female climacteric states (N95.1) Active confirmed Problem Postmenopausal atrophic vaginitis (41742665) Postmenopausal atrophic vaginitis (N95.2) Active confirmed Problem Polycystic ovary syndrome (disorder) (524759442) Polycystic ovarian syndrome (E28.2) Active confirmed Problem Morbid obesity (disorder) (511852700) Morbid (severe) obesity due to excess calories (E66.01) Active confirmed Problem Hyperlipidemia (65516041) Hyperlipidemia, unspecified (E78.5) Active confirmed Problem Recurrent depression (054411894) Other recurrent depressive disorders (F33.8) Active confirmed Problem Anxiety disorder (198277860) Anxiety disorder, unspecified (F41.9) Active confirmed Problem Vitreous opacities (594664160) Other vitreous opacities, unspecified eye (H43.399) Active confirmed Problem Asthma (609773488) Other asthma (J45.998) Active confirmed Problem Crohn's disease (87695777) Crohn's disease, unspecified, with unspecified complications (K50.919) Active confirmed Problem Fatty liver (753658003) Fatty (change of) liver, not elsewhere classified (K76.0) Active confirmed Problem Ankylosing spondylitis (9119633) Ankylosing spondylitis of unspecified sites in spine (M45.9) Active confirmed Problem Gastroesophageal reflux disease with esophagitis (disorder) (612512434) Gastro-esophageal reflux disease with esophagitis, without bleeding (K21.00) Active confirmed Vital Signs Temperature 97.4 degrees Fahrenheit 06/03/2024 Blood pressure diastolic 84 mm Hg 06/03/2024 Height 59 in 06/03/2024 Blood pressure systolic 124 mm Hg 06/03/2024 Weight 193 lbs 06/03/2024 BMI 38.98 kg/m2 06/03/2024 Encounters Encounter Location Date Provider Diagnosis [facility] [place] [address] [address] [place] [address] 06/19/2024 Debo Patel [facility] [place] [address] [address] 06/03/2024 Debo Patel Encounter for gynecological examination (general) (routine) without abnormal findings Z01.419 ; Encounter for screening mammogram for malignant neoplasm of breast Z12.31 and Acute candidiasis of vulva and vagina B37.31 [facility] [place] [address] [address] 07/30/2024 Debo Patel Assessments Encounter Date Diagnosis [...] 02:40:00 PM, [address] [facility], [address], [place], [address], Insurance Providers Payer Name Payer Address Payer Phone Subscriber Number Group Number Insured Name Patient Relationship to Insured Coverage Start Date Coverage End Date [facility] [address] [place] [address] [id number] GONZALO JAIME Self - patient is the [...]
== END 2024-11-03 09:20 | disposition home or self-care (01) ==
LOC: HO.US 09:19
PROVIDERS: PCP Family Medicine; Visit Provider Nurse Practitioner Family
DX: R79.89 Other specified abnormal findings of blood chemistry (principal)
CPT/HCPCS: 76705

== ENCOUNTER → 2024-11-03 09:20 | Outpatient (BNV) | payer OTHER, SELFPAY | PROVIDERS: PCP Family Medicine; Visit Provider Radiology Vascular & Interventional Radiology | DX: R16.0 Hepatomegaly, not elsewhere classified (principal) | CPT/HCPCS: 76705 ==

== ENCOUNTER 2024-11-04 10:07 | Outpatient (AMB) | payer OTHER, SELFPAY ==
--- NOTE | 2024-11-04 10:11 | MHC.OFFVIS ---
Intake Visit Reasons: Right knee pain Intake Note: Josselin is a 54 year old female who presents with complaints of progressively worsening right knee pain. She describes her pain as sharp in nature. She has had cortisone injections in the past which gave her minimal relief. Earlier this year she did have a Durolane viscosupplementation injection given into her left knee. She states that she got very good relief from that injection. She has tried Tylenol, anti-inflammatory medicines and a home exercise program which gave her minimal relief. She has failed the last 3 months of conservative treatment. She wishes to hold off on surgery for as long as possible. Allergies Penicillins [PENICILLINS] Allergy (Severe, Verified 11/04/24 10:13) ANAPHYLAXIS simvastatin Allergy (Mild, Verified 11/04/24 10:13) weird feeling ibuprofen Adverse Reaction (Intermediate, Verified 11/04/24 10:13) stomach upset, irritates [facility]'s Medication List - Last Reconciled 11/04/24 by Andrea Ponce MD adalimumab (Humira(CF) Pen) 40 mg subcut Q2W albuterol sulfate 90 mcg/actuation 2 puffs inhalation QID PRN albuterol sulfate 2.5 mg (3 mL) inhalation Q4-6H PRN 30 days alendronate 70 mg PO QWEEK 28 days azelastine intranasal budesonide 32 mcg/actuation 1 spray intranasal DAILY cholecalciferol (vitamin D3) 50 mcg PO DAILY 3 months clotrimazole 1% 1 appful vaginal BEDTIME PRN coenzyme Q10 (Co Q-10) 50 mg PO DAILY cranberry extract 250 mg PO DAILY cyanocobalamin (vitamin B-12) 1,000 mcg PO DAILY 30 days diclofenac sodium 1% (Arthritis Pain (diclofenac)) 4 grams topical QID 30 days docusate sodium 200 mg (2 x 100 mg) PO BID 3 months epinephrine (EpiPen 2-Isma) 0.3 mg (0.3 mL) IM Q10M PRN estradiol 0.01%(0.1mg/gram) Start with application daily for 2 weeks. pea-sized to urethra 3 times a week following 30 days fluticasone propion-salmeterol 500-50 mcg/dose inhalation lamotrigine (Lamictal) 100 mg PO DAILY loratadine 10 mg PO DAILY 90 days lorazepam 0.5 mg PO BID PRN mesalamine 1,200 mg (3 x 400 mg) PO BID montelukast 10 mg PO DAILY nystatin 5 mL PO DAILY 10 days nystatin-triamcinolone 100,000-0.1 unit/g-% 1 appl topical TID olopatadine 0.2% 1 drp ophthalmic (eye) DAILY PRN 30 days omeprazole 20 mg PO DAILY rosuvastatin 40 mg PO DAILY tizanidine 2 mg PO TID PRN 30 days [facility] Medical History Tubular adenoma Chronic idiopathic constipation Crohn disease Unspecified asthma, uncomplicated Dysuria Surgical History Hx of colonoscopy History of esophagogastroduodenoscopy (EGD) No pertinent past surgical history Family History Father Suicide Mother Hypertension Diabetes Paternal Grandmother Stroke Brother In good health Sister In good health Social History Housing: Other Housing Other:: mobile home Alcohol intake: current Alcohol intake frequency: does not drink Patient Tobacco Use Status: Never used Tobacco e-Cigarette/Vaping Use: Never Used Second Hand Smoke Exposure: Yes service: No Current occupational status: disabled Current occupational exposures/hazards: No Cognitive needs: No Hearing needs: No Vision needs: No Physical Exam Const Other: Well-nourished well-developed very friendly female awake alert and oriented x3 in no acute distress Extrem Other: Bilateral lower extremity examination shows good capillary refill, no skin lesions noted, normal sensation light touch Right knee examination shows a mild effusion, palpable crepitus with range of motion, pain with range of motion, no instability Office Procedures AMB Joint Injection/Aspiration Joint Injection/Aspiration Primary Site: right knee Prep: site was prepped using aseptic technique Injected: 60 mg of (Durolane viscosupplementation) and 1% plain lidocaine Procedure: The patient tolerated the procedure well Coding 26883 - Large joint Procedure code (CPT) selection complete Results Reviewed Results Reviewed: X-rays of the patient's right knee show joint space narrowing, subchondral sclerosis, no acute bony abnormalities Assessment & Plan Assessment & Plan (1) Osteoarthritis of right knee: Code(s): M17.11 - Unilateral primary osteoarthritis, right knee Category: Medical (2) Right knee pain: Code(s): M25.561 - Pain in right knee Category: Medical Plan Ms. Harrington presents with right knee pain due to osteoarthritis. The risks and benefits of a right knee Durolane viscosupplementation injection were discussed at length with the patient. The patient wished to proceed. She tolerated the injection well. She will continue with her home exercise program. She will contact me prior to her follow-up appointment in 3 months should any questions or concerns arise. Feel free to call me at any time should questions regarding her orthopedic management arise. I spent 20 minutes in reviewing the patient's records and imaging studies, seeing the patient and documenting in the medical record. Orders: Orders AMB Joint Injection/Aspiration Today M17.11 - Unilateral primary osteoarthritis, right knee Coding Level of Care Code Est Pt Level 3 (24185) Complex EM visit Add On G2211 Diagnoses Osteoarthritis of right knee M17.11 Right knee pain M25.561 CPT Codes Coding - 80686 Large joint: 17534 - Large joint ([id number])
--- OUTSIDE RECORDS SUMMARY | 2024-11-04 11:43 | XMS_ITS ---
Author Organization [employer] [facility] Address [address] [facility] [address] [place] [address] Care Team Providers Care Cartridge Assembler Name Role Phone BRITNEY STOREY Primary Care Provider UnavailDebo Alford Unavailable [phone] REASON FOR VISIT YEAST INFECTION Encounters Encounter Location Date Provider Diagnosis [facility] [address] [facility] [address] [place] [address] 07/30/2024 Debo Patel Plan Of Treatment Next Appt Details Provider Name:Debo head, 06/10/2025 02:40:00 PM, [address] [facility], [address], [place], [address], Progress Notes * GONZALOTROY GruberBaldoDOB:1970 (54 yo F)Acc No.[id number]:07/30/2024 Patient:?JAIME SÁNCHEZ :1970???Age:54 Y???Sex:Female Address:[address] [place] [address], [address] * true * Date:? Generated for Printi ng/Fajoselyng/eTransmitting on:?11/04/2024 11:43 AM EDT
--- OUTSIDE RECORDS SUMMARY | 2024-11-04 11:43 | XMS_ITS | Clinical Summary ---
Author Organization [facility] [address] [place] [address] [place] [address] Phone Care Team Providers Care Logistics Analyst Name Role Phone Lisa Santos MD Primary Care Provider [phone] Allergies Active Allergy Reactions Criticality Noted Date [...] time each day. 2 Active sodium chloride ([place] Saline) 0.65 % nasal drops 3 Drops [...] nodules 05/05/2016 Overview (08/07/2024): on imaging at [place], followed by Dr. Gaytan. CAT scan 04/23/17: [...] EST Hospital Encounter Radiology Department - [address] [address] Encounter for screening mammogram for breast cancer [...] ascending colitis on bxy ESOPHAGOGASTRODUODENOSCOPY 09/12/2015 PROCEDURE: SC ESOPHAGOGASTRODUODENOSCOPY TRANSORAL DIAGNOSTIC; COMMENT: Normal with nl duodenal, antral and GE junction bxys BREAST BIOPSY 06/25/2018 Left PROCEDURE: BX BREAST; PERC NEEDLE CORE W/IMAG GUID; COMMENT: BENIGN FIBROADENOMATOUS CHANGES. 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 MAMMO LOCATION: [facility], [address] [place] [address], [address], . -------- FINAL REPORT -------- Dictated By: Roselyn Martinez Dictated Date: 09/03/2024 08:19 ET Assigned Physician: Roselyn Martinez Reviewed and Electronically Signed By: Roselyn Martinez Signed Date: 09/03/2024 08:24 ET Workstation ID: [id number] Transcribed By: Self Edit Transcribed Date: 09/03/2024 [...] is recommended in 1 year. MAMMO LOCATION: [facility], [address] [place] [address], [address], . -------- FINAL REPORT -------- Dictated By: Roselyn Martinez Dictated Date: 09/03/2024 08:19 ET Assigned Physician: Roselyn Martinez Reviewed and Electronically Signed By: Roselyn Martinez Signed Date: 09/03/2024 08:24 ET Workstation ID: [id number] Transcribed By: Self Edit Transcribed Date: 09/03/2024 08:19 ET Result [facility] Lisa Santos MD IMG BI PROCEDURES Final Result * Annual BMP Blood Test (12/06/2020) [facility] Annual BMP Blood Test abstracted Result [facility] Provider HEALTH MAINTENANCE Final Result * Hepatitis C Screening (12/06/2020) [facility] Hepatitis C Screening abstracted Result [facility] Provider HEALTH MAINTENANCE Final Result * (ABNORMAL) Lipid panel (08/21/2019) [facility] LDL/HDL Ratio 4 0 - 4 Triglycerides 186(A) 0 - 150 mg/dL Cholesterol 198 0 - 200 mg/dL HDL 56 >=40 mg/dL LDL Cholesterol 105(A) 0 - 100 mg/dL Blood Venous blood specimen / Unknown Result [facility] Historical Provider LAB BLOOD ORDERABLES Micaela l Result * HIV Screening (01/10/2018) [facility] HIV Screening abstracted Result [facility] Historical Provider HEALTH MAINTENANCE Final Result * Cervical Cancer Screening: HPV (12/12/2015) Cervical Cancer Screening: HPV abstracted, negative Historical Provider HEALTH MAINTENANCE Final Result * Colonoscopy (09/12/2015) Colonoscopy no interpretation , abstracted Anatomical Region Laterality Modality Other Historical Provider HEALTH MAINTENANCE Final Result from Last 3 Months or Most Recently Relevant to Health Maintenance Insurance [facility] MEDICARE Member Subscriber Plan / Payer (Ef fective 2016-Present) Name:Josselin Harrington Relation to Subscriber:Self Name:Josselin Harrington Payer ID:[id number] Group ID:[id number] Type:Not on file Address: [place] [address] [address] [address] Care Teams Logistics Analyst Relationship Specialty Start Date End Date Lisa Santos MD [address] [place] [address] PCP - General Internal Medicine 02/15/22
--- OUTSIDE RECORDS SUMMARY | 2024-11-04 11:43 | XMS_ITS ---
Author Organization [facility] Address [address] [address] Care Team Providers Care Quartz Miner Name Role Phone BRITNEY STOREY Primary Care Provider Unavailab Debo Seymour Unavailable [phone] REASON FOR VISIT ULTRA - BLOATING PAIN Encounters Encounter Location Date Provider Diagnosis [facility] [address] [place] [address] 06/19/2024 Debo Patel Plan Of Treatment Next Appt Details Provider Name:Debo head, 06/10/2025 02:40:00 PM, [address] [facility], [address], [place], [address], Progress Notes * GONZALOTROY GruberBaldoDOB:1970 (54 yo F)Acc No.[id number]:06/19/2024 PROGRESS NOTES Patient:?JAIME SÁNCHEZ Appointment Provider:?Debo head M.D. :1970???Age:54 Y???Sex:Female D ate:06/19/2024 Address:[address] [place], [place] [id number] Pcp:BRITNEY STOREY Subjective: * Chief Complaints: * ???1. ULTRA - BLOATING PAIN. * Medical History:? Objective: * Vitals:? Assessment: Plan: * Treatment: * Images: Billing Information: * Visit Code:? * Procedure Codes:? * Electronic signature of Mary Patel MD on 11/04/2024 at 11:43 AM EDT Sign off status: Pending * Appointment Provider:?Debo Patel M.D. Date:?06/19/2024 Generated for Jasmyn gordon/Linda/Fredrick on:?11/04/2024 11:43 AM EDT
--- OUTSIDE RECORDS SUMMARY | 2024-11-04 11:43 | XMS_ITS ---
Author Organization [facility] Address [address] [facility] [address] [place] [address] Care Team Providers Care Proctologist Name Role Phone BRITNEY STOREY Primary Care Provider Unavailab Debo Seymour Unavailable [phone] Allergies Allergen (clinical drug ingredient) Drug/Non Drug [...] Neg BLOOD Neg REASON FOR VISIT Annual DRILL OPERATOR PNEUMATIC Physical, Annual DRILL OPERATOR PNEUMATIC Physical 50-59* Medications Medication SIG (Take, Route, [...] 50 MG as directed Orally Active Nystatin 789195 UNIT/GM 1 application Ex ternally Twice a [...] Encounters Encounter Location Date Provider Diagnosis [facility] [address] [place] [address] 06/03/2024 Debo Patel Encounter for gynecological examination [...] Reason: Provider Name:Debo head, 06/10/2025 02:40:00 [facility] [place], [address], [place], [address], Progress Notes * JAIME SÁNCHEZDOB:1970 (54 yo F)Acc No.[id number]:06/03/2024 PROGRESS NOTES Patient:?JAIME SÁNCHEZ Appointment Provider:?Debo head M.D. :1970???Age:54 Y???Sex:Female D ate:06/03/2024 Address:[address] [place], [place] [id number] Pcp:BRITNEY STOREY Subjective: * Chief Complaints: * ???Annual DRILL OPERATOR PNEUMATIC PhysicalAnnual DRILL OPERATOR PNEUMATIC Physical 50-59* * HPI: ???New/Follow-up Patient Consult:? [...] MAMMOGRAM WAS DONE IN SEP 2022 AT [facility].? WE WILL TRY TO GET [...] adequate calcium via diet and supplementation ?Significant DRILL OPERATOR PNEUMATIC problems:?no significant owner/operator symptoms or problems * ROS:?general:?no?chest pain.?no?palpitations.?no?headache.?no?cough.?no?shortness of breath.?no?fever.?no?unexplained weight loss.?no?nausea/vomiting.?no?change in bowel movements.?no blood in stool.?no?genitourinary complaints.?no?skin complaints.? * Medical History:? * Metal Tester History:?/ Para?0/0.?Sexual activity?currently sexually active.?Last Pap Smear:?05/29/23 NIL, NEG HPV, 01/25/21, NIL, NEG HPV.?Mammogram:?2022.?Abnormal Pap Smear:?Yes.?LMP and menses?[place].?Colonoscopy?2022.? * OB History:?Total pregnancies?0.? * Surgical History:?Colonoscop [...] 1 puff Inhalation Twice a day Nystatin 690273 UNIT/GM Powder 1 application Externally Twice a [...] puff Inhalation Twice a day Taking Nystatin 019589 UNIT/GM Powder 1 application Externally Twice a [...] * Images: Billing Information: * Visit Code:? 03667 Preventive Care New Pt. Age 40-64. 93656 Preventive Care Est Pt. Age 40-64. * Procedure Codes:? * Sign off status: Completed true * Appointment Provider:?Debo Patel M.D. Date:?06/03/2024 Generated for Jasmyn gordon/Linda/Gregorioitting on:?11/04/2024 11:43 AM EDT History and Physical Notes * [...] MAMMOGRAM WAS DONE IN SEP 2022 AT [facility]. WE WILL TRY TO GET [...] ate calcium via diet and supplementation Significant DRILL OPERATOR PNEUMATIC problems:: n o significant owner/operator symptoms or problems Examination Category Sub-Category Detail [...]
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
--- OUTSIDE RECORDS SUMMARY | 2024-11-04 11:44 | XMS_ITS | Patient Health Record ---
Author Organization [facility] Address [address] [facility] [address] [place] [address] Care Team Providers Care Flexographic Printing Press Operator Name Role Phone BRITNEY STOREY Primary Care Provider Unavailab Debo Seymour Unavailable [phone] Allergies Allergen (clinical drug ingredient) Drug/Non Drug [...] a day for 30 day(s) Active Nystatin 668765 UNIT/GM 1 application Ex ternally Twice a [...] Status W/U Status Risk Notes Problem Menopause (769480946) Menopausal and female climacteric states (N95.1) Active confirmed Problem Postmenopausal atrophic vaginitis (63723970) Postmenopausal atrophic vaginitis (N95.2) Active confirmed Problem Polycystic ovary syndrome (disorder) (992595647) Polycystic ovarian syndrome (E28.2) Active confirmed Problem Morbid obesity (disorder) (050689807) Morbid (severe) obesity due to excess calories (E66.01) Active confirmed Problem Hyperlipidemia (87484585) Hyperlipidemia, unspecified (E78.5) Active confirmed Problem Recurrent depression (705925032) Other recurrent depressive disorders (F33.8) Active confirmed Problem Anxiety disorder (351066814) Anxiety disorder, unspecified (F41.9) Active confirmed Problem Vitreous opacities (757882947) Other vitreous opacities, unspecified eye (H43.399) Active confirmed Problem Asthma (824872916) Other asthma (J45.998) Active confirmed Problem Crohn's disease (30774914) Crohn's disease, unspecified, with unspecified complications (K50.919) Active confirmed Problem Fatty liver (215866816) Fatty (change of) liver, not elsewhere classified (K76.0) Active confirmed Problem Ankylosing spondylitis (2200724) Ankylosing spondylitis of unspecified sites in spine (M45.9) Active confirmed Problem Gastroesophageal reflux disease with esophagitis (disorder) (068179794) Gastro-esophageal reflux disease with esophagitis, without bleeding (K21.00) Active confirmed Vital Signs Temperature 97.4 degrees Fahrenheit 06/03/2024 Blood pressure diastolic 84 mm Hg 06/03/2024 Height 59 in 06/03/2024 Blood pressure systolic 124 mm Hg 06/03/2024 Weight 193 lbs 06/03/2024 BMI 38.98 kg/m2 06/03/2024 Encounters Encounter Location Date Provider Diagnosis [facility] [address] [address] [address] [place] [address] 06/19/2024 Debo Patel [facility] [place] [address] [address] 06/03/2024 Debo Patel Encounter for gynecological examination (general) (routine) without abnormal findings Z01.419 ; Encounter for screening mammogram for malignant neoplasm of breast Z12.31 and Acute candidiasis of vulva and vagina B37.31 [facility] [place] [address] [address] 07/30/2024 Debo Patel Assessments Encounter Date Diagnosis [...] Provider Name:Debo head, 06/10/2025 02:40:00 PM, [address] [facility], [address], [place], [address], Insurance Providers Payer Name Payer Address Payer Phone Subscriber Number Group Number Insured Name Patient Relationship to Insured Coverage Start Date Coverage End Date [facility] [address] [place] [address] [id number] GONZALO JAIME Self - patient is the [...]
== END 2024-11-04 10:32 | disposition home or self-care (01) ==
LOC: HO.HOS 10:08
PROVIDERS: PCP Family Medicine; Visit Provider Orthopaedic Surgery
DX: M17.11 Unilateral primary osteoarthritis, right knee (principal)
CPT/HCPCS: 20610; 99213

== ENCOUNTER → 2024-11-04 10:07 | Outpatient (BNVA) | payer OTHER, SELFPAY | PROVIDERS: PCP Family Medicine; Visit Provider Orthopaedic Surgery | DX: M17.11 Unilateral primary osteoarthritis, right knee (principal) | CPT/HCPCS: 20610; 99212; J2003; J7318 ==

== ENCOUNTER 2024-11-06 10:33 | Outpatient (REF) | payer OTHER, SELFPAY ==
--- OUTSIDE RECORDS SUMMARY | 2024-11-06 12:03 | XMS_ITS | Patient Health Record ---
Author Organization Total [facility] Address [address] [place] [address] Care Team Providers Care District Ranger Name Role Phone BRITNEY STOREY Primary Care Provider Unavailab Debo Seymour Unavailable [phone] Allergies Allergen (clinical drug ingredient) Drug/Non Drug [...] a day for 30 day(s) Active Nystatin 628846 UNIT/GM 1 application Ex ternally Twice a [...] Status W/U Status Risk Notes Problem Menopause (148683576) Menopausal and female climacteric states (N95.1) Active confirmed Problem Postmenopausal atrophic vaginitis (47463671) Postmenopausal atrophic vaginitis (N95.2) Active confirmed Problem Polycystic ovary syndrome (disorder) (615949501) Polycystic ovarian syndrome (E28.2) Active confirmed Problem Morbid obesity (disorder) (405014773) Morbid (severe) obesity due to excess calories (E66.01) Active confirmed Problem Hyperlipidemia (31887318) Hyperlipidemia, unspecified (E78.5) Active confirmed Problem Recurrent depression (226579897) Other recurrent depressive disorders (F33.8) Active confirmed Problem Anxiety disorder (205950571) Anxiety disorder, unspecified (F41.9) Active confirmed Problem Vitreous opacities (000822469) Other vitreous opacities, unspecified eye (H43.399) Active confirmed Problem Asthma (233928048) Other asthma (J45.998) Active confirmed Problem Crohn's disease (69419498) Crohn's disease, unspecified, with unspecified complications (K50.919) Active confirmed Problem Fatty liver (936950494) Fatty (change of) liver, not elsewhere classified (K76.0) Active confirmed Problem Ankylosing spondylitis (1637413) Ankylosing spondylitis of unspecified sites in spine (M45.9) Active confirmed Problem Gastroesophageal reflux disease with esophagitis (disorder) (179977778) Gastro-esophageal reflux disease with esophagitis, without bleeding (K21.00) Active confirmed Vital Signs Temperature 97.4 degrees Fahrenheit 06/03/2024 Blood pressure diastolic 84 mm Hg 06/03/2024 Height 59 in 06/03/2024 Blood pressure systolic 124 mm Hg 06/03/2024 Weight 193 lbs 06/03/2024 BMI 38.98 kg/m2 06/03/2024 Encounters Encounter Location Date Provider Diagnosis [facility] [employer] [place] [address] [address] [place] [address] 06/19/2024 Debo Patel [facility] [place] [address] [address] [address] 06/03/2024 Debo Patel Encounter for gynecological examination (general) (routine) without abnormal findings Z01.419 ; Encounter for screening mammogram for malignant neoplasm of breast Z12.31 and Acute candidiasis of vulva and vagina B37.31 [facility] [place] [address] [address] [address] 07/30/2024 Debo Patel Assessments Encounter Date Diagnosis [...] Provider Name:Debo head, 06/10/2025 02:40:00 PM, [address] [facility], [address], [place], [address], Insurance Providers Payer Name Payer Address Payer Phone Subscriber Number Group Number Insured Name Patient Relationship to Insured Coverage Start Date Coverage End Date [facility] [address] [place] [address] [id number] GONZALO JAIME Self - patient is the [...]
--- OUTSIDE RECORDS SUMMARY | 2024-11-06 12:03 | XMS_ITS | Clinical Summary ---
Author Organization [facility] [address] [place] [address] [place] [address] Phone Care Team Providers Care Screen Print Operator Name Role Phone Lisa Santos MD Primary Care Provider [phone] Allergies Active Allergy Reactions Criticality Noted Date [...] time each day. 2 Active sodium chloride (Hurst Saline) 0.65 % nasal drops 3 Drops [...] nodules 05/05/2016 Overview (08/07/2024): on imaging at [place], followed by Dr. Gaytan. CAT scan 04/23/17: [...] PM EST Hospital Encounter Radiology Department - [address] [address] Encounter for screening mammogram for breast cancer [...] ascending colitis on bxy ESOPHAGOGASTRODUODENOSCOPY 09/12/2015 PROCEDURE: NV ESOPHAGOGASTRODUODENOSCOPY TRANSORAL DIAGNOSTIC; COMMENT: Normal with nl duodenal, antral and GE junction bxys BREAST BIOPSY 06/25/2018 Left PROCEDURE: BX BREAST; PERC NEEDLE CORE W/IMAG GUID; COMMENT: BENIGN FIBROADENOMATOUS CHANGES. 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 MAMMO LOCATION: [facility], [address] [place] [address], [address], . -------- FINAL REPORT -------- Dictated By: Roselyn Martinez Dictated Date: 09/03/2024 08:19 ET Assigned Physician: Roselyn Martinez Reviewed and Electronically Signed By: Roselyn Martinez Signed Date: 09/03/2024 08:24 ET Workstation ID: [id number] Transcribed By: Self Edit Transcribed Date: 09/03/2024 [...] is recommended in 1 year. MAMMO LOCATION: [facility], [address] [place] [address], [address], . -------- FINAL REPORT -------- Dictated By: Roselyn Martinez Dictated Date: 09/03/2024 08:19 ET Assigned Physician: Roselyn Martinez Reviewed and Electronically Signed By: Roselyn Martinez Signed Date: 09/03/2024 08:24 ET Workstation ID: [id number] Transcribed By: Self Edit Transcribed Date: 09/03/2024 08:19 ET Result [facility] Lisa Santos MD IMG BI PROCEDURES Final Result * Annual BMP Blood Test (12/06/2020) [facility] Annual BMP Blood Test abstracted Result [facility] Provider HEALTH MAINTENANCE Final Result * Hepatitis C Screening (12/06/2020) [facility] Hepatitis C Screening abstracted Result [facility] Provider HEALTH MAINTENANCE Final Result * (ABNORMAL) Lipid panel (08/21/2019) [facility] LDL/HDL Ratio 4 0 - 4 Triglycerides 186(A) 0 - 150 mg/dL Cholesterol 198 0 - 200 mg/dL HDL 56 >=40 mg/dL LDL Cholesterol 105(A) 0 - 100 mg/dL Blood Venous blood specimen / Unknown Result [facility] Historical Provider LAB BLOOD ORDERABLES Micaela l Result * HIV Screening (01/10/2018) [facility] HIV Screening abstracted Result [facility] Historical Provider HEALTH MAINTENANCE Final Result * Cervical Cancer Screening: HPV (12/12/2015) Cervical Cancer Screening: HPV abstracted, negative Historical Provider HEALTH MAINTENANCE Final Result * Colonoscopy (09/12/2015) Colonoscopy no interpretation , abstracted Anatomical Region Laterality Modality Other Historical Provider HEALTH MAINTENANCE Final Result from Last 3 Months or Most Recently Relevant to Health Maintenance Insurance [facility] MEDICARE Member Subscriber Plan / Payer (Ef fective 2016-Present) Name:Josselin Harrington Relation to Subscriber:Self Name:Josselin Harrington Payer ID:[id number] Group ID:[id number] Type:Not on file Address: [place] [address] [address] [address] Care Teams Screen Print Operator Relationship Specialty Start Date End Date Lisa Santos MD [address] [place] [address] PCP - General Internal Medicine 02/15/22
--- OUTSIDE RECORDS SUMMARY | 2024-11-06 12:03 | XMS_ITS ---
Author Organization Total [facility] Address [address] [facility] [address] [place] [address] Care Team Providers Care Special Delivery Carrier Name Role Phone BRITNEY STOREY Primary Care Provider Unavailab Debo Seymour Unavailable [phone] Allergies Allergen (clinical drug ingredient) Drug/Non Drug [...] Neg BLOOD Neg REASON FOR VISIT Annual RUBBER INSULATOR Physical, Annual RUBBER INSULATOR Physical 50-59* Medications Medication SIG (Take, Route, [...] 50 MG as directed Orally Active Nystatin 021246 UNIT/GM 1 application Ex ternally Twice a [...] Encounter Location Date Provider Diagnosis Total [address] [place] [address] 06/03/2024 Debo Patel Encounter for gynecological examination [...] Reason: Provider Name:Debo head, 06/10/2025 02:40:00 PM[facility], [address], [place], [address], Progress Notes * JAIME SÁNCHEZDOB:1970 (54 yo F)Acc No.[id number]:06/03/2024 PROGRESS NOTES Patient:?JAIME SÁNCHEZ Appointment Provider:?Debo head M.D. :1970???Age:54 Y???Sex:Female D ate:06/03/2024 Address:[address] [place], [place] [address] Pcp:BRITNEY STOREY Subjective: * Chief Complaints: * ???Annual RUBBER INSULATOR PhysicalAnnual RUBBER INSULATOR Physical 50-59* * HPI: ???New/Follow-up Patient Consult:? [...] MAMMOGRAM WAS DONE IN SEP 2022 AT [facility].? WE WILL TRY TO GET THE RESULTS. [...] adequate calcium via diet and supplementation ?Significant RUBBER INSULATOR problems:?no significant workers compensation paralegal symptoms or problems * ROS:?general:?no?chest pain.?no?palpitations.?no?headache.?no?cough.?no?shortness of breath.?no?fever.?no?unexplained weight loss.?no?nausea/vomiting.?no?change in bowel movements.?no blood in stool.?no?genitourinary complaints.?no?skin complaints.? * Medical History:? 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 * OB History:?Total pregnancies?0.? * Surgical History:?Colonoscop [...] 1 puff Inhalation Twice a day Nystatin 027131 UNIT/GM Powder 1 application Externally Twice a [...] puff Inhalation Twice a day Taking Nystatin 279391 UNIT/GM Powder 1 application Externally Twice a [...] * Images: Billing Information: * Visit Code:? 69498 Preventive Care New Pt. Age 40-64. 10878 Preventive Care Est Pt. Age 40-64. * Procedure Codes:? * Sign off status: Completed true * Appointment Provider:?Debo Patel M.D. Date:?06/03/2024 Generated for Jasmyn gordon/Linda/Gregorioitting on:?11/06/2024 12:03 PM EDT History and Physical Notes * [...] MAMMOGRAM WAS DONE IN SEP 2022 AT [facility]. WE WILL TRY TO GET THE RESULTS. [...] ate calcium via diet and supplementation Significant RUBBER INSULATOR problems:: n o significant workers compensation paralegal symptoms or problems Examination Category Sub-Category Detail [...]
--- OUTSIDE RECORDS SUMMARY | 2024-11-06 12:03 | XMS_ITS ---
Author Organization Total [facility] Address [address] [address] Care Team Providers Care International Affairs Vice President Name Role Phone BRITNEY STOREY Primary Care Provider Unavailab Debo Seymour Unavailable [phone] REASON FOR VISIT ULTRA - BLOATING PAIN Encounters Encounter Location Date Provider Diagnosis [facility] [address] [place] [address] 06/19/2024 Debo Patel Plan Of Treatment Next Appt Details Provider Name:Debo head, 06/10/2025 02:40:00 PM, [address] [facility], [address], [place], [address], Progress Notes * TROY SÁNCHEZBaldoDOB:1970 (54 yo F)Acc No.[id number]:06/19/2024 PROGRESS NOTES Patient:?JAIME SÁNCHEZ Appointment Provider:?Debo head M.D. :1970???Age:54 Y???Sex:Female D ate:06/19/2024 Address:[address] [place], [place] [id number] Pcp:BRITNEY STOREY Subjective: * Chief Complaints: * ???1. ULTRA - BLOATING PAIN. * Medical History:? Objective: * Vitals:? Assessment: Plan: * Treatment: * Images: Billing Information: * Visit Code:? * Procedure Codes:? * Electronic signature of Mary Patel MD on 11/06/2024 at 12:03 PM EDT Sign off status: Pending * Appointment Provider:?Debo Patel M.D. Date:?06/19/2024 Generated for Jasmyn gordon/Linda/Fredrick on:?11/06/2024 12:03 PM EDT
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
--- OUTSIDE RECORDS SUMMARY | 2024-11-06 12:03 | XMS_ITS ---
Author Organization [facility] [employer] [facility] Address [address] [facility] [address] [place] [address] Care Team Providers Care Religious Education Coordinator Name Role Phone BRITNEY STOREY Primary Care Provider UnavailDebo Alford Unavailable [phone] REASON FOR VISIT YEAST INFECTION Encounters Encounter Location Date Provider Diagnosis [facility] [address] [facility] [address] [place] [address] 07/30/2024 Debo Patel Plan Of Treatment Next Appt Details Provider Name:Debo head, 06/10/2025 02:40:00 PM, [address] [facility], [address], [place], [address], Progress Notes * GONZALOTROY GruberBaldoDOB:1970 (54 yo F)Acc No.[id number]:07/30/2024 Patient:?JAIME SÁNCHEZ :1970???Age:54 Y???Sex:Female Address:[address] [place] [address], [address] * true * Date:? Generated for Printi ng/Fajoselyng/eTransmitting on:?11/06/2024 12:03 PM EDT
[2024-11-06 14:54] LABS: Alanine Aminotransferase 32 U/L (0-31); Albumin Level 4.3 g/dL (3.5-5.0); Alkaline Phosphatase 77 U/L (39-117); Anion Gap 10 (12-20); Aspartate Amino Transferase 49 U/L (5-31); Bilirubin Direct 0.2 mg/dL (0.0-0.5); Bilirubin Total 0.6 mg/dL (0.0-1.0); Blood Urea Nitrogen 9 mg/dL (9-16); Calcium 9.3 mg/dL (8.4-10.2); Carbon Dioxide 28 mmol/L (22-29); Chloride 107 mmol/L (96-108); Estimated Glomerular Filt Rate > 60; Glucose Random 115 mg/dL (60-115); Potassium 4.1 mmol/L (3.3-5.1); Sodium 141 mmol/L (135-145); TSH reflex Free T4 2.37 uIU/mL (0.32-4.0); Total Protein 7.1 g/dL (6.5-8.0)
== END 2024-11-06 10:34 | disposition home or self-care (01) ==
LOC: HO.WFDLDS 10:33
PROVIDERS: Visit Provider Family Medicine
DX: Z00.00 Encounter for general adult medical examination without abnormal findings (principal); E66.9 Obesity, unspecified; R74.01 Elevation of levels of liver transaminase levels
CPT/HCPCS: 36415; 80053; 82248; 84443

== ENCOUNTER 2024-11-09 11:18 | Outpatient (AMB) | payer OTHER, SELFPAY ==
--- NOTE | 2024-11-09 11:23 | A.OFFVIS_ITS ---
Vital Signs 11/09/24 11:25 Height 5 ft BMI Reason not done Patient refused/unable BP 146/76 H Blood Pressure Location Rt brachial Position Sitting Pulse 90 Pulse Source Pulse Oximeter Pulse Oximetry (%) 97 Oxygen Delivery Method Room Air Intake Visit Reasons: 6 mo f/u Constipation & Gerd Intake Note: ESTABLISHED PATIENT for mgmt of GERD + Constipation. Imaging done, lab outstanding. Pt forgot about blood work and has been trying to get to the lab but has difficulty with transportation. Chief Complaint; C/O intermittent, moderate RUQ pain. No additional sx at this time. Pt would like to review the US report. Cage Maker Machine Required: No Accompanied by: Other Relationship Allergies Penicillins [PENICILLINS] Allergy (Severe, Verified 11/09/24 11:24) ANAPHYLAXIS simvastatin Allergy (Mild, Verified 11/09/24 11:24) weird feeling ibuprofen Adverse Reaction (Intermediate, Verified 11/09/24 11:24) stomach upset, irritates Chrohn's HPI HPI 6 mo f/u Constipation & Gerd: Details: LAST VISIT: GERD (gastroesophageal reflux disease) Abdominal pain Chronic idiopathic constipation Crohn disease History of diverticulitis Diverticulosis Transaminitis Plan Continue low-fat, low carb and low-salt diet. Increase protein. Patient was encouraged about losing weight. Continue Colace 2 capsules daily. Increase fluid intake and activity to promote better bowel motility. Ultrasound of abdomen and liver panel before her next appointment ordered. Reports epigastric pain and occasional acid reflux will start her on low-dose omeprazole, however patient was encouraged to avoid dietary triggers and late night snacking. Staying upright for minimum 3 hours after meals discussed with patient. Next visit in 6 months, sooner on as needed basis. She is agreeable to this plan and verbalizes understanding of instructions. She was given the opportunity to ask questions and all questions answered. ? Thank you for allowing me to participate in her care Orders Orders US abdomen limited 6 Months R79.89 Liver Panel 6 Months R74.01 Medications New omeprazole 20 mg PO DAILY 90 tabs 2RF K21.9 Refilled docusate sodium 200 mg (2 x 100 mg) PO BID 360 caps 1RF 3 months K59.00 Discontinued polyethylene glycol 3350 Discontinued Reason: Doctor's Order 17 grams PO DAILY 7 days 7 ea 0RF TODAY'S VISIT Patient is here today for follow-up. Patient reports to be feeling fairly well, however occasional acid reflux despite taking omeprazole. Patient denies dyspepsia, dysphagia or odynophagia. Abdominal ultrasound shows hepatomegaly, hepatic echogenicity within normal limits without any cysts or lesions. Normal pancreas and gallbladder. Patient reports that she has been trying to eat healthier, more vegetables low salt and low fat. Unable to exercise as she had knee pain and was unable to walk and due to cold weather. Patient plans on going for walks and plan on exercising. Patient denies melena, hematochezia, unintentional weight loss or ribbon like stools. Patient denies any abdominal pain or discomfort, however she reports occasional right upper quadrant cramping. Moves her bowels without any issues, takes Colace as needed PFSH Medical History Tubular adenoma Chronic idiopathic constipation Crohn disease Unspecified asthma, uncomplicated Dysuria Surgical History Hx of colonoscopy History of esophagogastroduodenoscopy (EGD) No pertinent past surgical history Family History Father Suicide Mother Hypertension Diabetes Paternal Grandmother Stroke Brother In good health Sister In good health Social History Housing: Other Housing Other:: mobile home Alcohol intake: current Alcohol intake frequency: does not drink Patient Tobacco Use Status: Never used Tobacco e-Cigarette/Vaping Use: Never Used Second Hand Smoke Exposure: Yes service: No Current occupational status: disabled Current occupational exposures/hazards: No Cognitive needs: No Hearing needs: No Vision needs: No Review of Systems Const Denies weight gain and Denies weight loss ENT Reports no additional complaints, Denies dysphagia and Denies odynophagia Card Reports no additional complaints Resp Reports no additional complaints GI Reports abdominal pain (Occasional right upper quadrant cramping), Denies belching, Denies melena, Reports bloating, Denies change in bowel habits, Denies dysphagia, Denies excessive flatus, Denies dyspepsia, Reports heartburn (Occasional), Denies diarrhea, Denies loose stools, Denies nausea, Denies odynophagia and Denies vomiting Musc Reports no additional complaints Neuro Reports no additional complaints Psych Reports no additional complaints Endo Reports no additional complaints Physical Exam Vital Signs: Last Vital Signs Pulse 90 11/09/24 11:25 BP 146/76 H 11/09/24 11:25 Pulse Ox 97 11/09/24 11:25 Oxygen Delivery Method Room Air 11/09/24 11:25 Const General: healthy appearing, no acute distress and well developed Nutritional Appearance: obese Orientation/consciousness: patient oriented x3 Resp Effort & Inspection: normal respiratory effort, able to speak in complete sentences, no tracheal deviation and symmetric chest movement Auscultation: clear to auscultation bilaterally Cardio Rate: regular rate GI Inspection: Yes normal to inspection, No distended and Yes obesity Palpation (GI): Soft to palpation, not firm, nontender and No hepatosplenomegaly present Auscultation: normal bowel sounds General: Yes no CVA tenderness Back/Spine/Pelvis Back: no CVA tenderness Skin General skin exam: elasticity normal, turgor normal and dry skin Neuro General: patient oriented x3 Psych Appearance: grossly normal Mental Status: mental status grossly normal Results Reviewed Results Reviewed: ABDOMINAL ULTRASOUND 11/03/2024 Findings: The pancreatic head and body appear within normal limits. Pancreatic tail is obscured by overlying bowel gas The liver is enlarged in size with the right hepatic lobe measuring 20.5 cm in length. Hepatic echogenicity is within normal limits. No focal hepatic mass is seen. There is no intrahepatic bile duct dilatation. The common duct is 2 mm in diameter. The gallbladder is normal. There is no sonographic Knutson sign. The main portal vein is antegrade. The right kidney is 11.8 cm in length. IMPRESSION: 1. Hepatomegaly. Laboratory Tests 11/06/24 10:34 Total Bilirubin 0.6 Direct Bilirubin 0.2 AST 49 H ALT 32 H Alkaline Phosphatase 77 Assessment & Plan Assessment & Plan (1) GERD (gastroesophageal reflux disease): Code(s): K21.9 - Gastro-esophageal reflux disease without esophagitis Category: Medical Qualifiers: Esophagitis presence: esophagitis presence not specified Qualified Code(s): K21.9 - Gastro-esophageal reflux disease without esophagitis (2) Abdominal pain: Code(s): R10.9 - Unspecified abdominal pain Category: Medical Qualifiers: Abdominal location: lower abdomen, unspecified Qualified Code(s): R10.30 - Lower abdominal pain, unspecified (3) Chronic idiopathic constipation: Code(s): K59.04 - Chronic idiopathic constipation Category: Medical (4) Crohn disease: Code(s): K50.90 - Crohn's disease, unspecified, without complications Category: Medical Qualifiers: Gastrointestinal tract location: large intestine Digestive disease complication type: without complication Qualified Code(s): K50.10 - Crohn's disease of large intestine without complications (5) History of diverticulitis: Code(s): Z87.19 - Personal history of other diseases of the digestive system (6) Diverticulosis: Code(s): K57.90 - Diverticulosis of intestine, part unspecified, without perforation or abscess without bleeding (7) Transaminitis: Code(s): R74.01 - Elevation of levels of liver transaminase levels Plan Long discussion with patient about dietary choices. Low fat, low salt, low carb and high-protein diet recommended. Patient was encouraged to lose weight and also try to do low-impact exercises and walking. Will change omeprazole to pantoprazole. Patient reports that she has to buy [id number] as pharmacy was unable to supply her with the tablets. Occasional postprandial epigastric pain and reflux, without dyspepsia, dysphagia or odynophagia. Avoid dietary triggers in late night snacking. Staying upright for minimum 3 hours after meals discussed with patient. Low FODMAP diet stressed with patient as well. Less abdominal bloating and less cramping. Follow-up in 6 months we will recheck liver enzymes next visit again and repeat ultrasound. Patient is agreeable to plan of care and verbalizes understanding of instructions. She was given the opportunity to ask questions and all questions answered. Thank you for allowing me to participate in her care Medications: New pantoprazole 20 mg PO DAILY 90 tabs 1RF Discontinued omeprazole Discontinued Reason: Doctor's Order 20 mg PO DAILY 90 tabs 2RF K21.9 - Gastro-esophageal reflux disease without esophagitis Coding Level of Care Code Est Pt Level 4 (81143) Complex EM visit Add On G2211 Diagnoses Gastroesophageal reflux disease, unspecified whether esophagitis present K21.9 Esophagitis presence: esophagitis presence not specified Lower abdominal pain R10.30 Abdominal location: lower abdomen, unspecified Chronic idiopathic constipation K59.04 Crohn's disease of large intestine without complication K50.10 Gastrointestinal tract location: large intestine Digestive disease complication type: without complication History of diverticulitis Z87.19 Diverticulosis K57.90 Transaminitis R74.01 Time Spent (min) 35 Comment 20 minutes spent with patient and additional 15 minute spent reviewing her records
[2024-11-09 11:25] VITALS: BP 146/76; PULSE 90; O2SAT 97
--- OUTSIDE RECORDS SUMMARY | 2024-11-09 13:37 | XMS_ITS ---
Author Organization [facility] Address [address] [address] Care Team Providers Care Potato Picker Name Role Phone BRITNEY STOREY Primary Care Provider Unavailab Debo Seymour Unavailable [phone] REASON FOR VISIT ULTRA - BLOATING PAIN Encounters Encounter Location Date Provider Diagnosis [facility] [address] [place] [address] 06/19/2024 Debo Patel Plan Of Treatment Next Appt Details Provider Name:Debo head, 06/10/2025 02:40:00 PM, [address] [facility], [address], [place], [address], Progress Notes * TROY SÁNCHEZBaldoDOB:1970 (54 yo F)Acc No.[id number]:06/19/2024 PROGRESS NOTES Patient:?JAIME SÁNCHEZ Appointment Provider:?Debo head M.D. :1970???Age:54 Y???Sex:Female D ate:06/19/2024 Address:[address] [place], [place] [id number] Pcp:BRITNEY STOREY Subjective: * Chief Complaints: * ???1. ULTRA - BLOATING PAIN. * Medical History:? Objective: * Vitals:? Assessment: Plan: * Treatment: * Images: Billing Information: * Visit Code:? * Procedure Codes:? * Electronic signature of Mary Patel MD on 11/09/2024 at 01:37 PM EDT Sign off status: Pending * Appointment Provider:?Debo Patel M.D. Date:?06/19/2024 Generated for Jasmyn gordon/Linda/Fredrick on:?11/09/2024 01:37 PM EDT
--- OUTSIDE RECORDS SUMMARY | 2024-11-09 13:37 | XMS_ITS | Clinical Summary ---
Author Organization [facility] [address] [place] [address] [place] [address] Phone Care Team Providers Care Head Loader Name Role Phone Lisa Santos MD Primary Care Provider [phone] Allergies Active Allergy Reactions Criticality Noted Date [...] time each day. 2 Active sodium chloride ([place] Saline) 0.65 % nasal drops 3 Drops [...] nodules 05/05/2016 Overview (08/07/2024): on imaging at [place], followed by Dr. Gaytan. CAT scan 04/23/17: [...] PM EST Hospital Encounter Radiology Department - [address] [address] Encounter for screening mammogram for breast cancer [...] ascending colitis on bxy ESOPHAGOGASTRODUODENOSCOPY 09/12/2015 PROCEDURE: LA ESOPHAGOGASTRODUODENOSCOPY TRANSORAL DIAGNOSTIC; COMMENT: Normal with nl duodenal, antral and GE junction bxys BREAST BIOPSY 06/25/2018 Left PROCEDURE: BX BREAST; PERC NEEDLE CORE W/IMAG GUID; COMMENT: BENIGN FIBROADENOMATOUS CHANGES. OTHER SURGICAL HISTORY 02/2021 PROCEDURE: MAMMOGRAM, SCREENING, BOTH BREASTS Medical History Medical History Date Comments Depression with anxiety 10/06/2015 DX:Depre ssion with anxiety; COMMENT: [facility] - therapist Khushi, tries to see [...] spine (CMS/HCC) 08/2017 DX:Fracture of lumbar spine ([facility]); COMMENT: Macario fracture Sternal fracture 08/2017 DX:Sternal frac ture Crohn's disease (CMS/HCC) DX:Trauma Surgeon hn's disease ([facility]) Family History Medical History Relation Name [...] is recommended in 1 year. MAMMO LOCATION: [facility], [address] [place] [address], [address], . -------- FINAL REPORT -------- Dictated By: Roselyn Martinez Dictated Date: 09/03/2024 08:19 ET Assigned Physician: Roselyn Martinez Reviewed and Electronically Signed By: Roselyn Martinez Signed Date: 09/03/2024 08:24 ET Workstation ID: [id number] Transcribed By: Self Edit Transcribed Date: 09/03/2024 [...] is recommended in 1 year. MAMMO LOCATION: [facility], [address] [place] [address], [address], . -------- FINAL REPORT -------- Dictated By: Roselyn Martinez Dictated Date: 09/03/2024 08:19 ET Assigned Physician: Roselyn Martinez Reviewed and Electronically Signed By: Roselyn Martinez Signed Date: 09/03/2024 08:24 ET Workstation ID: [id number] Transcribed By: Self Edit Transcribed Date: 09/03/2024 08:19 ET Result [facility] Lisa Santos MD IMG BI PROCEDURES Final Result * Annual BMP Blood Test (12/06/2020) [facility] Annual BMP Blood Test abstracted Result [facility] Provider HEALTH MAINTENANCE Final Result * Hepatitis C Screening (12/06/2020) [facility] Hepatitis C Screening abstracted Result [facility] Provider HEALTH MAINTENANCE Final Result * (ABNORMAL) Lipid panel (08/21/2019) [facility] LDL/HDL Ratio 4 0 - 4 Triglycerides 186(A) 0 - 150 mg/dL Cholesterol 198 0 - 200 mg/dL HDL 56 >=40 mg/dL LDL Cholesterol 105(A) 0 - 100 mg/dL Blood Venous blood specimen / Unknown Result [facility] Historical Provider LAB BLOOD ORDERABLES Micaela l Result * HIV Screening (01/10/2018) [facility] HIV Screening abstracted Result [facility] Historical Provider HEALTH MAINTENANCE Final Result * Cervical Cancer Screening: HPV (12/12/2015) Cervical Cancer Screening: HPV abstracted, negative Historical Provider HEALTH MAINTENANCE Final Result * Colonoscopy (09/12/2015) Colonoscopy no interpretation , abstracted Anatomical Region Laterality Modality Other Historical Provider HEALTH MAINTENANCE Final Result from Last 3 Months or Most Recently Relevant to Health Maintenance Insurance [facility] MEDICARE Member Subscriber Plan / Payer (Ef fective 2016-Present) Name:Josselin Harrington Relation to Subscriber:Self Name:Josselin Harrington Payer ID:[id number] Group ID:[id number] Type:Not on file Address: [place] [address] [address] [address] Care Teams Head Loader Relationship Specialty Start Date End Date Lisa Santos MD [address] [place] [address] PCP - General Internal Medicine 02/15/22
--- OUTSIDE RECORDS SUMMARY | 2024-11-09 13:37 | XMS_ITS ---
Author Organization [facility] Address [address] [facility] [address] [place] [address] Care Team Providers Care Inspector Penetrant Name Role Phone BRITNEY STOREY Primary Care Provider UnavailDebo Alford Unavailable [phone] REASON FOR VISIT YEAST INFECTION Encounters Encounter Location Date Provider Diagnosis [facility] [address] [facility] [address] [place] [address] 07/30/2024 Debo Patel Plan Of Treatment Next Appt Details Provider Name:Debo head, 06/10/2025 02:40:00 PM, [address] [facility], [address], [place], [address], Progress Notes * GONZALO, GISELLAALEKSBaldoDOB:1970 (54 yo F)Acc No.[id number]:07/30/2024 Patient:?JAIME SÁNCHEZ :1970???Age:54 Y???Sex:Female Address:[address] [place] [address], [address] * true * Date:? Generated for Printi ng/Fajoselyng/eTransmitting on:?11/09/2024 01:37 PM EDT
--- OUTSIDE RECORDS SUMMARY | 2024-11-09 13:37 | XMS_ITS ---
Author Organization [facility] Address [address] [facility] [address] [place] [address] Care Team Providers Care Senior Manufacturing Test Engineer Name Role Phone BRITNEY STOREY Primary Care Provider Unavailab Debo Seymour Unavailable [phone] Allergies Allergen (clinical drug ingredient) Drug/Non Drug [...] Neg BLOOD Neg REASON FOR VISIT Annual ANDROID PLATFORM DEVELOPER Physical, Annual ANDROID PLATFORM DEVELOPER Physical 50-59* Medications Medication SIG (Take, Route, [...] 50 MG as directed Orally Active Nystatin 354046 UNIT/GM 1 application Ex ternally Twice a [...] Encounters Encounter Location Date Provider Diagnosis [facility] [address] [place] [address] 06/03/2024 Debo Patel Encounter for gynecological examination [...] Name:Debo head, 06/10/2025 02:40:00 PM, [facility], [address], [place], [address], Progress Notes * JAIME SÁNCHEZDOB:1970 (54 yo F)Acc No.[id number]:06/03/2024 PROGRESS NOTES Patient:?JAIME SÁNCHEZ Appointment Provider:?Debo head M.D. :1970???Age:54 Y???Sex:Female D ate:06/03/2024 Address:[address] [place], [place] [id number] Pcp:BRITNEY STOREY Subjective: * Chief Complaints: * ???Annual ANDROID PLATFORM DEVELOPER PhysicalAnnual ANDROID PLATFORM DEVELOPER Physical 50-59* * HPI: ???New/Follow-up Patient Consult:? [...] MAMMOGRAM WAS DONE IN SEP 2022 AT [facility].? WE WILL TRY TO GET THE RESULTS. [...] adequate calcium via diet and supplementation ?Significant ANDROID PLATFORM DEVELOPER problems:?no significant obgyn specialist symptoms or problems * ROS:?general:?no?chest pain.?no?palpitations.?no?headache.?no?cough.?no?shortness of breath.?no?fever.?no?unexplained weight loss.?no?nausea/vomiting.?no?change in bowel movements.?no blood in stool.?no?genitourinary complaints.?no?skin complaints.? * Medical History:? * Sliding Joint Maker History:?/ Para?0/0.?Sexual activity?currently sexually active.?Last Pap Smear:?05/29/23 NIL, NEG HPV, 01/25/21, NIL, NEG HPV.?Mammogram:?2022.?Abnormal Pap Smear:?Yes.?LMP and menses?[place].?Colonoscopy?2022.? * OB History:?Total pregnancies?0.? * Surgical History:?Colonoscop [...] 1 puff Inhalation Twice a day Nystatin 978180 UNIT/GM Powder 1 application Externally Twice a [...] puff Inhalation Twice a day Taking Nystatin 034111 UNIT/GM Powder 1 application Externally Twice a [...] * Images: Billing Information: * Visit Code:? 85580 Preventive Care New Pt. Age 40-64. 40545 Preventive Care Est Pt. Age 40-64. * Procedure Codes:? * Sign off status: Completed true * Appointment Provider:?Debo Patel M.D. Date:?06/03/2024 Generated for Jasmyn gordon/Linda/Fredrick on:?11/09/2024 01:37 PM EDT History and Physical Notes * [...] MAMMOGRAM WAS DONE IN SEP 2022 AT [facility]. WE WILL TRY TO GET THE RESULTS. [...] ate calcium via diet and supplementation Significant ANDROID PLATFORM DEVELOPER problems:: n o significant obgyn specialist symptoms or problems Examination Category Sub-Category Detail [...]
--- OUTSIDE RECORDS SUMMARY | 2024-11-09 13:38 | XMS_ITS | Patient Health Record ---
Author Organization [facility] Address [address] [facility] [address] [place] [address] Care Team Providers Care Assistant To The Dean Name Role Phone BRITNEY STOREY Primary Care Provider Unavailab Debo Seymour Unavailable [phone] Allergies Allergen (clinical drug ingredient) Drug/Non Drug [...] a day for 30 day(s) Active Nystatin 847164 UNIT/GM 1 application Ex ternally Twice a [...] Status W/U Status Risk Notes Problem Menopause (193505900) Menopausal and female climacteric states (N95.1) Active confirmed Problem Postmenopausal atrophic vaginitis (83803281) Postmenopausal atrophic vaginitis (N95.2) Active confirmed Problem Polycystic ovary syndrome (disorder) (088628337) Polycystic ovarian syndrome (E28.2) Active confirmed Problem Morbid obesity (disorder) (544692069) Morbid (severe) obesity due to excess calories (E66.01) Active confirmed Problem Hyperlipidemia (72432940) Hyperlipidemia, unspecified (E78.5) Active confirmed Problem Recurrent depression (116945408) Other recurrent depressive disorders (F33.8) Active confirmed Problem Anxiety disorder (400435446) Anxiety disorder, unspecified (F41.9) Active confirmed Problem Vitreous opacities (496364929) Other vitreous opacities, unspecified eye (H43.399) Active confirmed Problem Asthma (959058447) Other asthma (J45.998) Active confirmed Problem Crohn's disease (99238639) Crohn's disease, unspecified, with unspecified complications (K50.919) Active confirmed Problem Fatty liver (317065568) Fatty (change of) liver, not elsewhere classified (K76.0) Active confirmed Problem Ankylosing spondylitis (3901641) Ankylosing spondylitis of unspecified sites in spine (M45.9) Active confirmed Problem Gastroesophageal reflux disease with esophagitis (disorder) (488808304) Gastro-esophageal reflux disease with esophagitis, without bleeding (K21.00) Active confirmed Vital Signs Temperature 97.4 degrees Fahrenheit 06/03/2024 Blood pressure diastolic 84 mm Hg 06/03/2024 Height 59 in 06/03/2024 Blood pressure systolic 124 mm Hg 06/03/2024 Weight 193 lbs 06/03/2024 BMI 38.98 kg/m2 06/03/2024 Encounters Encounter Location Date Provider Diagnosis [facility] [place] [address] [address] [place] [address] 06/19/2024 Debo Patel [facility] [place] [address] [address] 06/03/2024 Debo Patel Encounter for gynecological examination (general) (routine) without abnormal findings Z01.419 ; Encounter for screening mammogram for malignant neoplasm of breast Z12.31 and Acute candidiasis of vulva and vagina B37.31 [facility] [place] [address] [address] 07/30/2024 Debo Patel Assessments Encounter Date Diagnosis [...] head, 06/10/2025 02:40:00 PM, [address] [facility], [address], [place], [address], Insurance Providers Payer Name Payer Address Payer Phone Subscriber Number Group Number Insured Name Patient Relationship to Insured Coverage Start Date Coverage End Date [facility] [address] [place] [address] [id number] GONZALO JAIME Self - patient is the [...]
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
== END 2024-11-09 12:25 | disposition home or self-care (01) ==
LOC: HO.HGI 11:19
PROVIDERS: PCP Family Medicine; Visit Provider Nurse Practitioner Family
DX: K21.9 Gastro-esophageal reflux disease without esophagitis (principal); R10.30 Lower abdominal pain, unspecified; K59.04 Chronic idiopathic constipation; K50.10 Crohn's disease of large intestine without complications; Z87.19 Personal history of other diseases of the digestive system; K57.90 Diverticulosis of intestine, part unspecified, without perforation or abscess without bleeding; R74.01 Elevation of levels of liver transaminase levels
CPT/HCPCS: 99214; G2211

== ENCOUNTER → 2024-11-09 11:18 | Outpatient (BNVA) | payer OTHER, SELFPAY | PROVIDERS: PCP Family Medicine; Visit Provider Nurse Practitioner Family | DX: K21.9 Gastro-esophageal reflux disease without esophagitis (principal); K59.04 Chronic idiopathic constipation; K50.10 Crohn's disease of large intestine without complications; K57.90 Diverticulosis of intestine, part unspecified, without perforation or abscess without bleeding; R10.30 Lower abdominal pain, unspecified; R74.01 Elevation of levels of liver transaminase levels; Z87.19 Personal history of other diseases of the digestive system | CPT/HCPCS: 99212 ==

== ENCOUNTER 2024-11-11 11:51 | Outpatient (AMB) | payer OTHER, SELFPAY ==
--- NOTE | 2024-11-11 12:12 | A.OFFPC_ITS ---
Vital Signs 11/11/24 12:17 Height 5 ft Weight 202 lb 6 oz BMI 39.5 BP 120/70 Blood Pressure Location Lt brachial Position Sitting Respiration 14 Pulse 94 Pulse Source Pulse Oximeter Pulse Oximetry (%) 97 Oxygen Delivery Method Room Air Intake Visit Reasons: [address] Flip webster complex conditions Intake Note: patient is scheduled for chronic conditions Line Painting Machine Operator Required: No Allergies Penicillins [PENICILLINS] Allergy (Severe, Verified 11/11/24 12:14) ANAPHYLAXIS simvastatin Allergy (Mild, Verified 11/11/24 12:14) weird feeling ibuprofen Adverse Reaction (Intermediate, Verified 11/11/24 12:14) stomach upset, irritates Chrohn's Medication List - Last Reconciled 11/11/24 by Layton Ward MD adalimumab (Humira(CF) Pen) 40 mg subcut Q2W albuterol sulfate 90 mcg/actuation 2 puffs inhalation QID PRN albuterol sulfate 2.5 mg (3 mL) inhalation Q4-6H PRN 30 days alendronate 70 mg PO QWEEK 28 days azelastine intranasal budesonide 32 mcg/actuation 1 spray intranasal DAILY cholecalciferol (vitamin D3) 50 mcg PO DAILY 3 months clotrimazole 1% 1 appful vaginal BEDTIME PRN coenzyme Q10 (Co Q-10) 50 mg PO DAILY cranberry extract 250 mg PO DAILY cyanocobalamin (vitamin B-12) 1,000 mcg PO DAILY 30 days diclofenac sodium 1% (Arthritis Pain (diclofenac)) 4 grams topical QID 30 days docusate sodium 200 mg (2 x 100 mg) PO BID 3 months epinephrine (EpiPen 2-Isma) 0.3 mg (0.3 mL) IM Q10M PRN estradiol 0.01%(0.1mg/gram) Start with application daily for 2 weeks. pea-sized to urethra 3 times a week following 30 days fluticasone propion-salmeterol 500-50 mcg/dose inhalation lamotrigine (Lamictal) 100 mg PO DAILY loratadine 10 mg PO DAILY 90 days lorazepam 0.5 mg PO BID PRN mesalamine 1,200 mg (3 x 400 mg) PO BID montelukast 10 mg PO DAILY nystatin 5 mL PO DAILY 10 days nystatin 5 mL PO DAILY 10 days nystatin-triamcinolone 100,000-0.1 unit/g-% 1 appl topical TID olopatadine 0.7% (Pataday Once Daily Relief) 1 drp ophthalmic (eye) DAILY PRN pantoprazole 20 mg PO DAILY rosuvastatin 40 mg PO DAILY tizanidine 2 mg PO TID PRN 30 days Tobacco use date assessed: 01/24/24 Dental Screening Dental Screen Date: 11/05/[address] Castelan routine fu complex conditions HPI Details 54 y/o female presents to f/u chronic co nditions. Ordered labs to f/u on renal function, thyroid hormone levels. Labs drawn 11/06/24. Reviewed labs with pt. Elevated liver enzymes - AST 49, ALT 32. TSH level 2.37. Creatinine level 0.69. Hx of elevated blood pressure reading. BP today 120/70, 94p. Has complaints of throat pain. She notes recent RUQ pain but this has resolved. [facility] Medical History Tubular adenoma Chronic idiopathic constipation Crohn disease Unspecified asthma, uncomplicated Dysuria Surgical History Hx of colonoscopy History of esophagogastroduodenoscopy (EGD) No pertinent past surgical history Family History Father Suicide Mother Hypertension Diabetes Paternal Grandmother Stroke Brother In good health Sister In good health Social History Housing: Other Housing Other:: mobile home Alcohol intake: current Alcohol intake frequency: does not drink Patient Tobacco Use Status: Never used Tobacco e-Cigarette/Vaping Use: Never Used Second Hand Smoke Exposure: Yes service: No Current occupational status: disabled Current occupational exposures/hazards: No Cognitive needs: No Hearing needs: No Vision needs: No Questionnaire Thrive Questionnaire Date Thrive assessed: 08/12/24 I am a: Patient What is your living situation today?: I choose not to answer this question Within the past 12 months, did the food you bought not last and you didn't have the money to get more?: I choose not to answer this question Within the past 12 months, did you worry whether your food would run out before you got money to buy more?: I choose not to answer this question Do you have trouble paying for medicines?: I choose not to answer this question Do you have trouble getting transportation to medical appointments?: I choose not to answer this question Do you have trouble paying your heating and electricity bill?: I choose not to answer this question Do you have trouble taking care of your child, family member or friend?: I choose not to answer this question Do you have trouble with day-to-day activities such as bathing, preparing meals, shopping, managing finances, etc.?: I choose not to answer this question Are you currently unemployed and looking for a job?: I choose not to answer this question Are you interested in more education?: I choose not to answer this question Please select the resources that you would like help with: None Currently or been in a relationship where the following occur: No concerns reported THRIVE Score: 0 ZENY-7 AMB Questionnaire ZENY-7 Date ZENY - 7 assessed: 08/12/24 Source: Developed by Drs. Bernardino Ahumada, Peri Valencia, Gordy Victoria and colleagues, with an educational hakeem from [employer]. Review of Systems Const Denies chills, Denies fatigue, Denies fever(s), Denies headache(s) and Denies weakness ENT Denies dizziness and Denies headache(s) Card Denies dyspnea Resp Denies cough, Denies dyspnea, Denies wheezing and Denies other (shortness of b reath) Musc Denies numbness and Denies tingling Neuro Denies dizziness, Denies headache(s), Denies numbness, Denies tingling and Denies weakness Psych Denies anxiety and Denies depression Endo Denies fatigue Aller/Immun Denies wheezing Physical exam (Primary Care) Tobacco/Smoking Status: Tobacco use Status Tobacco use date assessed 01/24/24 11/11/24 12:12 Patient Tobacco Use Status Never used Tobacco 11/11/24 12:12 e-Cigarette/Vaping Use Never Used 11/11/24 12:12 Thrive Assessment: Date of Thrive Assessment Date Thrive assessed 08/12/24 11/11/24 12:12 Currently or been in a relationship where the following occur: No concerns reported Const General: well developed; No acute distress Nutritional Appearance: well nourished Orientation/consciousness: patient oriented x3 [facility] Head: Yes normocephalic and Yes atraumatic Eyes General: appearance normal, both eyes and all related structures Pupils: Equal, round and reactive pupils present EOM: EOMs intact bilaterally Resp Effort & Inspection: normal respiratory effort Neuro General: patient oriented x3 and gait normal Cranial nerves: Yes Equal, round and reactive pupils present Psych Affect: normal affect Coding Level of Care Code Est Pt Level 4 (12169) Diagnoses Elevated liver enzymes R74.8 Osteoarthritis of knees, bilateral M17.0 Elevated blood pressure reading R03.0 Age-related osteoporosis with current pathological fracture, initial encounter M80.00XA Encounter type: initial encounter Osteoporosis type: age-related Presence of current pathological fracture: with current pathological fracture Right upper quadrant pain R10.11 Throat pain R07.0 Assessment & Plan Assessment & Plan (1) Elevated liver enzymes: Code(s): R74.8 - Abnormal levels of other serum enzymes Category: Medical Plan: This?is?improving. Recent?abdominal?ultrasound?shows?fatty?liver?disorder?and?hepatomegaly. Nothing on?ultrasound?to?explain?right?upper?quadrant?discomfort?which?is?already?resolv ed/resolving.??Likely?abdominal?wall?discomfort. Will?continue?to?monitor liver?enzymes. Encouraged?weight?loss?and?good?hydration (2) Osteoarthritis of knees, bilateral: Code(s): M17.0 - Bilateral primary osteoarthritis of knee Category: Medical Plan: Knees?improved?after?injection?therapy?with[place] Follow-up?as?recommended (3) Elevated blood pressure reading: Code(s): R03.0 - Elevated blood-pressure reading, without diagnosis of hypertension Category: Medical Plan: Recently?had?elevated?blood?pressure?but?within?normal?range?today?and?normal. (4) Osteoporosis: Code(s): M81.0 - Age-related osteoporosis without current pathological fracture Category: Medical Qualifiers: Encounter type: initial encounter Osteoporosis type: age-related Presence of current pathological fracture: with current pathological fracture Qualified Code(s): M80.00XA - Age-related osteoporosis with current pathological fracture, unspecified site, initial encounter for fracture Plan: Patient?is?considering bisphosphonate?infusion?therapy We?discussed?this.??Encouraged?this. (5) Right upper quadrant pain: Code(s): R10.11 - Right upper quadrant pain Category: Medical Plan: As?above,?right?upper?quadrant?pain?which?has?resolved (6) Throat pain: Code(s): R07.0 - Pain in throat Category: Medical Plan: Rapid?strep?test: Neg Likely?thrush Advised?she?gargle?with?water?after?she?uses?her?inhaled?medications Will?give?her?a?script?for?nystatin Also?advised?good?hydration?and?humidified?air. Fahad or RTO if worsens/Not improving Orders: Orders AMB Rapid Strep Screen Today R07.0 - Pain in throat, Z13.9 - Encounter for screening, unspecified Medications: New nystatin swish and swallow 5 mL PO DAILY 10 days 50 mL 1RF
[2024-11-11 12:17] VITALS: BP 120/70; PULSE 94; RESP 14; O2SAT 97; BMI 39.5
--- OUTSIDE RECORDS SUMMARY | 2024-11-11 14:00 | XMS_ITS | Encounter Summary ---
Author Organization [facility] Address [address] [place] [address] Care Team Providers Care Adult Basic Studies Teacher Name Role Phone Lisa Santos MD Primary Care Provider [phone] Judy Juarez MD Primary Care Provider [facility] Lisa Collazo MD Primary Care Provider [phone] Reason for Visit * Reason Comments E-prescribe Rx Request Encounter Details Date Type Department Care Team Description 12/06/2020 Refill Gastroenterology - English [address] [facility] [address] [place] [address] Kain Carolina PA-C [address] [address] E-prescribe Rx Request Social History Tobacco Use [...] on filedocumented in this encounter Care Teams Adult Basic Studies Teacher Relationship Specialty Start Date End Date Lisa Santos MD [address] [place] [address] PCP - General Internal Medicine 11/29/20 02/12/22 Judy Juarez MD [address] [place] [address] PCP - General Internal Medicine 02/13/22 02/14/22 Lisa Santos MD [address] [place] [address] PCP - General Internal Medicine 02/15/22 documented as of this encounter
--- OUTSIDE RECORDS SUMMARY | 2024-11-11 14:00 | XMS_ITS | Encounter Summary ---
Author Organization [facility] Address [address] [place] [address] Care Team Providers Care Clubhouse Manager Name Role Phone Judy Juarez MD Primary Care Provider Judy Swanson MD Primary Care Provider Lisa Mireles MD Primary Care Provider [phone] Judy Juarez MD Primary Care Provider Lisa Mireles MD Primary Care Provider [phone] Reason for Visit * Reason Comments E-prescribe Rx Request Encounter Details Date Type Department Care Team Description 02/24/2020 Refill Allergy [facility] [address] [place] [address] Susana Lobato MD E-prescribe Rx Request Social History Tobacco Use [...] Telephone Encounter - Corine Soto M.A. - 02/25/2020 11:02 AM EDT [facility] 11/23/2019 NOV not scheduled documented in this encounter Plan of Treatment Not on file documented as of this encounter Visit Diagnoses Diagnosis Chronic rhinitis documented in this encounter Care Teams Clubhouse Manager Relationship Specialty Start Date End Date Judy Juarez MD PCP - General Internal Medicine 01/14/17 10/23/20 Judy Juarez MD PCP - General Internal Medicine 10/24/20 11/28/20 Lisa Santos MD [address] [place] [id number] PCP - General Internal Medicine 11/29/20 02/12/22 Judy Juarez MD [address] [place] [address] PCP - General Internal Medicine 02/13/22 02/14/22 Lisa Santos MD [address] [place] [address] PCP - General Internal Medicine 02/15/22 documented as of this encounter
--- OUTSIDE RECORDS SUMMARY | 2024-11-11 14:00 | XMS_ITS | Encounter Summary ---
Author Organization [facility] Address [address] [place] [address] Care Team Providers Care Radiography Technician Name Role Phone Community, Pcp Primary Care Provider Judy Harris MD Primary Care Provider Judy Swanson MD Primary Care Provider Lisa Mireles MD Primary Care Provider [phone] Judy Juarez MD Primary Care Provider Lisa Mireles MD Primary Care Provider [phone] Encounter Details Date Type Department Care Team Description 12/14/2016 Orders Only Medicine/Pediatrics - [address] [address] Dinah Ortiz PA-C Social History Tobacco Use [...] on filedocumented in this encounter Care Teams Radiography Technician Relationship Specialty Start Date End Date Community, Pcp PCP - General Internal Medicine 12/03/16 01/13/17 Judy Juarez MD PCP - General Internal Medicine 01/14/17 10/23/20 Judy Juarez MD PCP - General Internal Medicine 10/24/20 11/28/20 Lisa Santos MD [address] [place] [address] PCP - General Internal Medicine 11/29/20 02/12/22 Judy Juarez MD [address] [place] [address] PCP - General Internal Medicine 02/13/22 02/14/22 Lisa Santos MD [address] [place] [address] PCP - General Internal Medicine 02/15/22 documented as of this encounter
--- OUTSIDE RECORDS SUMMARY | 2024-11-11 14:00 | XMS_ITS | Encounter Summary ---
Author Organization [facility] Address [address] [place] [address] Care Team Providers Care Steel Rule Die Maker Apprentice Name Role Phone Lisa Santos MD Primary Care Provider [phone] Judy Juarez MD Primary Care Provider [facility] Lisa Santos MD Primary Care Provider [phone] Encounter Details Date Type Department Care Team Description 03/17/2021 Business Doc Medical Records [address] [place] [address] Abstract, Provider Social History Tobacco Use Types [...] on filedocumented in this encounter Care Teams Steel Rule Die Maker Apprentice Relationship Specialty Start Date End Date Lisa Santos MD [address] [place] [address] [phone] PCP - General Internal Medicine 11/29/20 02/12/22 Judy Juarez MD [address] [place] [address] 9[address] PCP - General Internal Medicine 02/13/22 02/14/22 Lisa Santos MD [address] [place] [address] PCP - General Internal Medicine 02/15/22 documented as of this encounter
--- OUTSIDE RECORDS SUMMARY | 2024-11-11 14:00 | XMS_ITS | Encounter Summary ---
Author Organization [facility] Address [address] [place] [address] Care Team Providers Care Industrial Recruiter Name Role Phone Judy Juarez MD Primary Care Provider Judy Swanson MD Primary Care Provider Lisa Mireles MD Primary Care Provider [phone] Judy Juarez MD Primary Care Provider Lisa Mireles MD Primary Care Provider [phone] Encounter Details Date Type Department Care Team Description 08/07/2018 Orders Only Medical Records [address] [place] [address] Dinah Ortiz PA-C Social History Tobacco Use [...] on filedocumented in this encounter Care Teams Industrial Recruiter Relationship Specialty Start Date End Date Judy Juarez MD PCP - General Internal Medicine 01/14/17 10/23/20 Judy Juarez MD PCP - General Internal Medicine 10/24/20 11/28/20 Lisa Santos MD [address] [place] [address] PCP - General Internal Medicine 11/29/20 02/12/22 Judy Juarez MD [address] [place] [address] PCP - General Internal Medicine 02/13/22 02/14/22 Lisa Santos MD [address] [place] [address] 15359 PCP - General Internal Medicine 02/15/22 documented as of this encounter
--- OUTSIDE RECORDS SUMMARY | 2024-11-11 14:00 | XMS_ITS | Encounter Summary ---
Author Organization [facility] Address [address] [place] [address] Care Team Providers Care Executive Manager Name Role Phone Judy Juarez MD Primary Care Provider Judy Swanson MD Primary Care Provider Lisa Mireles MD Primary Care Provider Judy Juarez MD Primary Care Provider Lisa Mireles MD Primary Care Provider [phone] Encounter Details Date Type Department Care Team Description 05/19/2018 Transfer Records Medical Records [address] [place] [address] Abstract, Provider Social History Tobacco Use Types [...] on filedocumented in this encounter Care Teams Executive Manager Relationship Specialty Start Date End Date Judy Juarez MD PCP - General Internal Medicine 01/14/17 10/23/20 Judy Juarez MD PCP - General Internal Medicine 10/24/20 11/28/20 Lisa Santos MD [address] [place] [address] PCP - General Internal Medicine 11/29/20 02/12/22 Judy Juarez MD [address] [place] [address] 69113 PCP - General Internal Medicine 02/13/22 02/14/22 Lisa Santos MD [address] [place] [address] 24942 PCP - General Internal Medicine 02/15/22 documented as of this encounter
--- OUTSIDE RECORDS SUMMARY | 2024-11-11 14:00 | XMS_ITS | Patient Health Record ---
Author Organization [facility] Address [address] [facility] [address] [place] [address] Care Team Providers Care Java Lead Architect Name Role Phone BRITNEY STOREY Primary Care Provider Unavailab Debo Seymour Unavailable [phone] Allergies Allergen (clinical drug ingredient) Drug/Non Drug [...] a day for 30 day(s) Active Nystatin 398641 UNIT/GM 1 application Ex ternally Twice a [...] Status W/U Status Risk Notes Problem Menopause (751246598) Menopausal and female climacteric states (N95.1) Active confirmed Problem Postmenopausal atrophic vaginitis (81390764) Postmenopausal atrophic vaginitis (N95.2) Active confirmed Problem Polycystic ovary syndrome (disorder) (394823915) Polycystic ovarian syndrome (E28.2) Active confirmed Problem Morbid obesity (disorder) (581021674) Morbid (severe) obesity due to excess calories (E66.01) Active confirmed Problem Hyperlipidemia (20740623) Hyperlipidemia, unspecified (E78.5) Active confirmed Problem Recurrent depression (777162571) Other recurrent depressive disorders (F33.8) Active confirmed Problem Anxiety disorder (877622152) Anxiety disorder, unspecified (F41.9) Active confirmed Problem Vitreous opacities (175897898) Other vitreous opacities, unspecified eye (H43.399) Active confirmed Problem Asthma (991383108) Other asthma (J45.998) Active confirmed Problem Crohn's disease (67188278) Crohn's disease, unspecified, with unspecified complications (K50.919) Active confirmed Problem Fatty liver (664728372) Fatty (change of) liver, not elsewhere classified (K76.0) Active confirmed Problem Ankylosing spondylitis (3129043) Ankylosing spondylitis of unspecified sites in spine (M45.9) Active confirmed Problem Gastroesophageal reflux disease with esophagitis (disorder) (872740085) Gastro-esophageal reflux disease with esophagitis, without bleeding (K21.00) Active confirmed Vital Signs Temperature 97.4 degrees Fahrenheit 06/03/2024 Blood pressure diastolic 84 mm Hg 06/03/2024 Height 59 in 06/03/2024 Blood pressure systolic 124 mm Hg 06/03/2024 Weight 193 lbs 06/03/2024 BMI 38.98 kg/m2 06/03/2024 Encounters Encounter Location Date Provider Diagnosis [facility] [employer] [address] [employer] [address] [place] [address] 06/19/2024 Debo Patel [facility] [place] [address] [address] 06/03/2024 Debo Patel Encounter for gynecological examination (general) (routine) without abnormal findings Z01.419 ; Encounter for screening mammogram for malignant neoplasm of breast Z12.31 and Acute candidiasis of vulva and vagina B37.31 [facility] [place] [address] [address] [address] 07/30/2024 Debo Patel Assessments Encounter Date Diagnosis [...] head, 06/10/2025 02:40:00 PM, [address] [facility], [address], [place], [address], Insurance Providers Payer Name Payer Address Payer Phone Subscriber Number Group Number Insured Name Patient Relationship to Insured Coverage Start Date Coverage End Date [facility] [address] [place] [address] [id number] GONZALO JAIME Self - patient is the [...]
--- OUTSIDE RECORDS SUMMARY | 2024-11-11 14:00 | XMS_ITS | Encounter Summary ---
Author Organization [facility] Address [address] [place] [address] Care Team Providers Care Roll Hand Name Role Phone Judy Juarez MD Primary Care Provider Judy Swanson MD Primary Care Provider Lisa Mireles MD Primary Care Provider [phone] Judy Juarez MD Primary Care Provider Lisa Mireles MD Primary Care Provider [phone] Reason for Visit * Reason Onset Date Comments refill request 01/28/2017 Encounter Details Date Type Department Care Team Description 01/28/2017 Refill Medicine/Pediatrics - [address] [address] Judy Juarez MD refill request Social History [...] THE PATIENT'S LAST APPOINTMENT IN ADULT MEDICINE? [id number] WHEN WAS THE LAST TIME THE PATIENT SAW THEIR PCP? [id number] Does patient have an upcoming appointment? Yes [id number] (THE MEDICATION REQUESTED IS ON THE MED LIST ABOVE) All of the medications requested were on the CURRENT MEDS list Did you check the Pharmacy information above?: YES Patient wants: 30 -day supply Is this a mail order prescription request ? NO Patients current insurance carrier is: Payor: [employer] [facility] [employer] MCR / Plan: [facility] / Product Type: HMO [id number] documented in this encounter Plan of Treatment Not on file documented as of this encounter Visit Diagnoses Not on filedocumented in this encounter Care Teams Roll Hand Relationship Specialty Start Date End Date Judy Juarez MD PCP - General Internal Medicine 01/14/17 10/23/20 Judy Juarez MD PCP - General Internal Medicine 10/24/20 11/28/20 Lisa Santos MD [address] [place] [address] PCP - General Internal Medicine 11/29/20 02/12/22 Judy Juarez MD [address] [place] [address] PCP - General Internal Medicine 02/13/22 02/14/22 Lisa Santos MD [address] [place] [address] PCP - General Internal Medicine 02/15/22 documented as of this encounter
--- OUTSIDE RECORDS SUMMARY | 2024-11-11 14:00 | XMS_ITS | Encounter Summary ---
Author Organization [facility] Address [address] [place] [address] Care Team Providers Care Social Media Developer Name Role Phone Judy Juarez MD Primary Care Provider Judy Swanson MD Primary Care Provider Lisa Mireles MD Primary Care Provider [phone] Judy Juarez MD Primary Care Provider Lisa Mireles MD Primary Care Provider [phone] Encounter Details Date Type Department Care Team Description 01/27/2018 Instrumentation Chemist Report Medical Records [address] [place] [address] Ravi Lozano MD Social History Tobacco Use [...] on filedocumented in this encounter Care Teams Social Media Developer Relationship Specialty Start Date End Date Judy Juarez MD PCP - General Internal Medicine 01/14/17 10/23/20 Judy Juarez MD PCP - General Internal Medicine 10/24/20 11/28/20 Lisa Santos MD [address] [place] [address] PCP - General Internal Medicine 11/29/20 02/12/22 Judy Juarez MD [address] [place] [address] PCP - General Internal Medicine 02/13/22 02/14/22 Lisa Santos MD [address] [place] [address] PCP - General Internal Medicine 02/15/22 documented as of this encounter
--- OUTSIDE RECORDS SUMMARY | 2024-11-11 14:00 | XMS_ITS | Data Portability ---
Author Organization [place] [facility] Address [address] [place] [address] Care Team Providers Care Crm Architect Name Role Phone [facility] Primary Care Provider [phone] [facility] FAX OTHER [phone] Assessment Encounter Date Assessment Date Assessment LastModified by Organization Details LastModified Time 09/03/2021 09/03/2021 Proper Personal Protective Equipment (PPE), including gloves, eye protection and masks were donned and doffed appropriately and all equipment cleaned using approved technique with germicidal disposable wipes prior to and after care of this patient according to [facility]'s infection prevention protocols. Overview/History : 51 [...] - covid-19 (novel coronavirus ) PCR 2021 [place] [facility] (Centralized Electronic Ordering - All Locations), Patient Can Go To The Location Of Their Choice, [address] 13:16:40 Referral None recorded. Procedures None recorded. Surgeries None recorded. Imaging None recorded. Medication Orders benzonatate 200 mg capsule 2021 [facility] [place], [place], [address] [place], [address], 13:01:10 Patient TargetsNo targets recorded. Patient Instructions Encounter Date Encounter Id Patient Instructions Last Modified By Organization Details Last Modified Time 09/03/2021 [id number] Inhaler Instructions Before use, you need to [...] a steroid medicine (also called a ? g lucocorticoid? or ? c orticosteroid? ), rinse out your mouth, gargle, and [...] after cleaning actually helps it work better. [email or web address] Not available 09/03/2021 11:39:16 Reason for Referral None Reported. Results Created Date Observation Date Name Description Value Unit Range Abnormal Flag Note LastModifiedBy Organization Detail LastModifiedTime 09/03/19 22 09/05/2021 COVID -19 (NOVE L CORON AVIRU S) PCR covid-19 PCR result (neg) NEGAT SADIQ 2019- novel Coron aviru s (2018 -nCoV ) not detec sandee by the qRT-P CR assay . If clini nu suspi cion for COVID -19 is high, marily nue to maint ain preca ution s and consi felice repea t testi ng. Resul t repor sandee to the [facility]. This test has been autho rized by the FDA under an Emerg ency Use Autho rizat ion (EUA) for use by autho rized labor atori es. Test perfo rmed by [facility], [facility] at the [facility] of [facility] and Abhijeet gutierrez, [address] [place] [address] . CLIA ID: [id number] , CAP: [id number] 96. Medic al Direc tor: Ruma Ramirez, [...] limit ed to the [facility] [employer] [facility] at the [facility] which is certi fied under the Clini [...] Go To The Location Of Their Choice, [id number] 09/05/2021 13:16:40 Result Notes None recorded. Procedures Surgical History Date Name Laterality Status Provider Name and Address Organization Details Recorded Time 09/03/19 ECG Interpretation - completed MARGARET Bazzi [address], [place], [address], [place] [facility] 09/03/2021 12:41:20 Imaging Results [...] 0.3 mg (0.3 mL) Into the muscle [id number] As Needed for anaphylaxis ; for 2 [...] Not Available Not Available No t Available Trinity Saline 0.65 % nasal drops active Not [...] mm[Hg] 98 mm[Hg] Not Available [facility] 11:44:08 Social History None recorded. Functional Status None recorded. Mental Status None recorded. Family History Nothing Reported. Medical History No medical history recorded. Gynecological HistoryNo gynecological history recorded. Obstetrics History GPAL:G 0 P 0 0 0 0 Past Encounters Encounter ID Performer Location Encounter Start Date Encounter Closed Date Diagnosis/Indication Diagnosis SNOMED-CT Code Diagnosis ICD10 Code Diagnosis Note [id number] MARGARET Bazzi [facility] [address] [place] [address] 09/03/2021 11:37:26 09/04/2021 08:55:24 Viral upper respiratory tract infection 165462586 J06.9 Exposure t o communicable disease 192594447 Z20.822 Health Concerns Section Related Observation LastModified by Organization Detai ls LastModified Time None Recorded Concern Status LastModified by Organization Details LastModified Time None Recorded Advance Directives Directive None Recorded Payers Encounter Date Sequence Insurance Name Policy Number Policy Mckeon Covered Member ID Mckeon Member ID Guarantor Name 09/03/2021 1 [facility] - DOS PRIOR TO 2022 - DUAL ELIGIBLE (MEDICARE REPLACEMENT/ADV ANTAGE - HMO) Josselin Harrington [id number] Josselin Harrington Notes Date Note Type Note [...] a heart attack-no smoking, no hx of [place]/CVA, reports cholesterol is fine , and denies any family hx of CAD. MARGARET Bazzi [address], [place], [address], [place] [facility] 09/03/2021 12:56:49 OBGyn Episode No OBEpisode recorded.
--- OUTSIDE RECORDS SUMMARY | 2024-11-11 14:00 | XMS_ITS | Encounter Summary ---
Author Organization [facility] Address [address] [place] [address] Care Team Providers Care Web Analytics Developer Name Role Phone Lisa Santos MD Primary Care Provider [phone] Judy Juarez MD Primary Care Provider [facility] Lisa Santos MD Primary Care Provider [phone] Reason for Visit * Reason Comments E-prescribe Rx Request Encounter Details Date Type Department Care Team Description 01/11/2022 Refill Gastroenterology - [place] [address] [address] Kain Carolina PA-C [address] [address] E-prescribe Rx Request Social History Tobacco Use [...] on filedocumented in this encounter Care Teams Web Analytics Developer Relationship Specialty Start Date End Date Lisa Santos MD [address] [place] [address] PCP - General Internal Medicine 11/29/20 02/12/22 Judy Juarez MD [address] [place] [address] PCP - General Internal Medicine 02/13/22 02/14/22 Lisa Santos MD [address] [place] [address] PCP - General Internal Medicine 02/15/22 documented as of this encounter
--- OUTSIDE RECORDS SUMMARY | 2024-11-11 14:00 | XMS_ITS | Clinical Summary ---
Author Organization [facility] [address] [place] [address] [place] [address] Phone Care Team Providers Care Teaching Young Name Role Phone Lisa Santos MD Primary Care Provider [phone] Allergies Active Allergy Reactions Criticality Noted Date [...] time each day. 2 Active sodium chloride ([place] Saline) 0.65 % nasal drops 3 Drops [...] nodules 05/05/2016 Overview (08/07/2024): on imaging at [place], followed by Dr. Gaytan. CAT scan 04/23/17: [...] PM EST Hospital Encounter Radiology Department - [address] [address] Encounter for screening mammogram for breast cancer [...] ascending colitis on bxy ESOPHAGOGASTRODUODENOSCOPY 09/12/2015 PROCEDURE: AL ESOPHAGOGASTRODUODENOSCOPY TRANSORAL DIAGNOSTIC; COMMENT: Normal with nl duodenal, antral and GE junction bxys BREAST BIOPSY 06/25/2018 Left PROCEDURE: BX BREAST; PERC NEEDLE CORE W/IMAG GUID; COMMENT: BENIGN FIBROADENOMATOUS CHANGES. OTHER SURGICAL HISTORY 02/2021 PROCEDURE: MAMMOGRAM, SCREENING, BOTH BREASTS Medical History Medical History Date Comments Depression with anxiety 10/06/2015 DX:Depre ssion with anxiety; COMMENT: [facility] - therapist Khushi, tries to see her [...] 08/2017 DX:Fracture of lumbar spine ([facility]); COMMENT: Macario fracture Sternal fracture 08/2017 DX:Sternal frac ture Crohn's disease (CMS/HCC) DX:Rug Weaver hn's disease ([facility]) Family History Medical History Relation [...] age to complete this topic Meningococcal B Vaccine Aged Out No l onger eligible based on patient's age to complete [...] is recommended in 1 year. MAMMO LOCATION: [facility], [address] [place] [address], [address], . -------- FINAL REPORT -------- Dictated By: Roselyn Martinez Dictated Date: 09/03/2024 08:19 ET Assigned Physician: Roselyn Martinez Reviewed and Electronically Signed By: Roselyn Martinez Signed Date: 09/03/2024 08:24 ET Workstation ID: [id number] Transcribed By: Self Edit Transcribed Date: 09/03/2024 [...] is recommended in 1 year. MAMMO LOCATION: [facility], [address] [place] [address], [phone], . -------- FINAL REPORT -------- Dictated By: Roselyn Martinez Dictated Date: 09/03/2024 08:19 ET Assigned Physician: Roselyn Martinez Reviewed and Electronically Signed By: Roselyn Martinez Signed Date: 09/03/2024 08:24 ET Workstation ID: [id number] Transcribed By: Self Edit Transcribed Date: 09/03/2024 08:19 ET Result [facility] Lisa Santos MD IMG BI PROCEDURES Final Result * Annual BMP Blood Test (12/06/2020) [facility] Annual BMP Blood Test abstracted Result [facility] Provider HEALTH MAINTENANCE Final Result * Hepatitis C Screening (12/06/2020) [facility] Hepatitis C Screening abstracted Result [facility] Provider HEALTH MAINTENANCE Final Result * (ABNORMAL) Lipid panel (08/21/2019) [facility] LDL/HDL Ratio 4 0 - 4 Triglycerides 186(A) 0 - 150 mg/dL Cholesterol 198 0 - 200 mg/dL HDL 56 >=40 mg/dL LDL Cholesterol 105(A) 0 - 100 mg/dL Blood Venous blood specimen / Unknown Result [facility] Provider LAB BLOOD ORDERABLES Micaela l Result * HIV Screening (01/10/2018) [facility] HIV Screening abstracted us Historical Provider HEALTH MAINTENANCE Final Result * [...] ID:[id number] Group ID:[id number] Type:Not on file Address: [place] [address] [address] [address] Care Teams Teaching Young Relationship Specialty Start Date End Date Lisa Santos MD [address] [place] [address] PCP - General Internal Medicine 02/15/22
--- OUTSIDE RECORDS SUMMARY | 2024-11-11 14:00 | XMS_ITS | Encounter Summary ---
Author Organization [facility] Address [address] [place] [address] Care Team Providers Care Toy Stuffer Name Role Phone Judy Juarez MD Primary Care Provider Judy Swanson MD Primary Care Provider Lisa Mireles MD Primary Care Provider [phone] Judy Juarez MD Primary Care Provider Lisa Mireles MD Primary Care Provider [phone] Encounter Details Date Type Department Care Team Description 10/01/2017 Home Health Certification Medical Records [address] [place] [address] Services, [facility] [address] [place] [address] Social History Tobacco Use Types Packs/Day Years [...] on filedocumented in this encounter Care Teams Toy Stuffer Relationship Specialty Start Date End Date Judy Juarez MD PCP - General Internal Medicine 01/14/17 10/23/20 Judy Juarez MD PCP - General Internal Medicine 10/24/20 11/28/20 Lisa Santos MD [address] [place] [address] PCP - General Internal Medicine 11/29/20 02/12/22 Judy Juarez MD [address] [place] [address] PCP - General Internal Medicine 02/13/22 02/14/22 Lisa Santos MD [address] [place] [address] PCP - General Internal Medicine 02/15/22 documented as of this encounter
--- OUTSIDE RECORDS SUMMARY | 2024-11-11 14:00 | XMS_ITS | Encounter Summary ---
Author Organization [facility] Address [address] [place] [address] Care Team Providers Care Cable Armorer Name Role Phone Judy Juarez MD Primary Care Provider Norman Jain Primary Care Provider Judy Harris MD Primary Care Provider Judy Swanson MD Primary Care Provider Lisa Mireles MD Primary Care Provider [phone] Judy Juarez MD Primary Care Provider Lisa Mireles MD Primary Care Provider [phone] Encounter Details Date Type Department Care Team Description 04/03/2016 Wellness Visit Medical Records [address] [place] [address] Judy Juarez MD Social History Tobacco Use [...] on filedocumented in this encounter Care Teams Cable Armorer Relationship Specialty Start Date End Date Judy Juarez MD PCP - General Internal Medicine 10/12/15 12/02/16 Radhika, Pcp PCP - General Internal Medicine 12/03/16 01/13/17 Judy Juarez MD PCP - General Internal Medicine 01/14/17 10/23/20 Judy Juarez MD PCP - General Internal Medicine 10/24/20 11/28/20 Lisa Santos MD [address] [place] [address] PCP - General Internal Medicine 11/29/20 02/12/22 Judy Juarez MD [address] [place] [address] PCP - General Internal Medicine 02/13/22 02/14/22 Lisa Santos MD [address] [place] [address] PCP - General Internal Medicine 02/15/22 documented as of this encounter
--- OUTSIDE RECORDS SUMMARY | 2024-11-11 14:00 | XMS_ITS | Encounter Summary ---
Author Organization [facility] Address [address] [place] [address] Care Team Providers Care Dormitory Keeper Name Role Phone Judy Juarez MD Primary Care Provider Judy Swanson MD Primary Care Provider Lisa Mireles MD Primary Care Provider [phone] Judy Juarez MD Primary Care Provider Lisa Mireles MD Primary Care Provider Encounter Details Date Type Department Care Team Description 05/25/2019 Telephone Rheumatology - [address] [address] Jonathan Mckay MD Social History Tobacco Use [...] on filedocumented in this encounter Care Teams Dormitory Keeper Relationship Specialty Start Date End Date Judy Juarez MD PCP - General Internal Medicine 01/14/17 10/23/20 Judy Juarez MD PCP - General Internal Medicine 10/24/20 11/28/20 Lisa Santos MD [address] [place] [address] PCP - General Internal Medicine 11/29/20 02/12/22 Judy Juarez MD [address] [place] [address] PCP - General Internal Medicine 02/13/22 02/14/22 Lisa Santos MD [address] [place] [address] PCP - General Internal Medicine 02/15/22 documented as of this encounter
--- OUTSIDE RECORDS SUMMARY | 2024-11-11 14:00 | XMS_ITS | Encounter Summary ---
Author Organization [facility] Address [address] [place] [address] Care Team Providers Care Tire Servicer Name Role Phone Judy Juarez MD Primary Care Provider Judy Swanson MD Primary Care Provider Lisa Mireles MD Primary Care Provider [phone] Judy Juarze MD Primary Care Provider Lisa Mireles MD Primary Care Provider [phone] Encounter Details Date Type Department Care Team Description 01/16/2018 Orders Only Medicine/Pediatrics - [address] [address] Dinah Ortiz PA-C Multiple fractures of ribs, [...] sequela documented in this encounter Care Teams Tire Servicer Relationship Specialty Start Date End Date Judy Juarez MD PCP - General Internal Medicine 01/14/17 10/23/20 Judy Juarez MD PCP - General Internal Medicine 10/24/20 11/28/20 Lisa Santos MD [address] [place] [address] PCP - General Internal Medicine 11/29/20 02/12/22 Judy Juarez MD [address] [place] [address] PCP - General Internal Medicine 02/13/22 02/14/22 Lisa Santos MD [address] [place] [address] PCP - General Internal Medicine 02/15/22 documented as of this encounter
--- OUTSIDE RECORDS SUMMARY | 2024-11-11 14:00 | XMS_ITS | Encounter Summary ---
Author Organization [facility] Address [address] [place] [address] Care Team Providers Care Forestry Laborer Name Role Phone Judy Juarez MD Primary Care Provider Norman Jain Primary Care Provider Judy Harris MD Primary Care Provider Judy Swanson MD Primary Care Provider Lisa Mireles MD Primary Care Provider [phone] Judy Juarez MD Primary Care Provider Lisa Mireles MD Primary Care Provider [phone] Encounter Details Date Type Department Care Team Description 10/25/2015 Release of Information Medical Records [address] [place] [address] Abstract, Provider Social History Tobacco Use Types [...] on filedocumented in this encounter Care Teams Forestry Laborer Relationship Specialty Start Date End Date Judy Juarez MD PCP - General Internal Medicine 10/12/15 12/02/16 Radhika, Pcp PCP - General Internal Medicine 12/03/16 01/13/17 Judy Juarez MD PCP - General Internal Medicine 01/14/17 10/23/20 Judy Juarez MD PCP - General Internal Medicine 10/24/20 11/28/20 Lisa Santos MD [address] [place] [address] PCP - General Internal Medicine 11/29/20 02/12/22 Judy Juraez MD [address] [place] [address] PCP - General Internal Medicine 02/13/22 02/14/22 Lisa Santos MD [address] [place] [address] PCP - General Internal Medicine 02/15/22 documented as of this encounter
--- OUTSIDE RECORDS SUMMARY | 2024-11-11 14:00 | XMS_ITS | Encounter Summary ---
Author Organization [facility] Address [address] [place] [address] Care Team Providers Care Deburr Operator Name Role Phone Judy Juarez MD Primary Care Provider Judy Swanson MD Primary Care Provider Lisa Mireles MD Primary Care Provider [phone] Judy Juarez MD Primary Care Provider Lisa Mireles MD Primary Care Provider [phone] Encounter Details Date Type Department Care Team Description 02/17/2020 [employer] Scientific Aid Report Medical Records [address] [place] [address] Mary Colvin, HIGHWAY MAINTENANCE TECHNICIAN [address] [address] Social History Tobacco Use Types [...] on filedocumented in this encounter Care Teams Deburr Operator Relationship Specialty Start Date End Date Judy Juarez MD PCP - General Internal Medicine 01/14/17 10/23/20 Judy Juarez MD PCP - General Internal Medicine 10/24/20 11/28/20 Lisa Santos MD [address] [place] [address] PCP - General Internal Medicine 11/29/20 02/12/22 Judy Juarez MD [address] [place] [address] PCP - General Internal Medicine 02/13/22 02/14/22 Lisa Santos MD [address] [place] [address] PCP - General Internal Medicine 02/15/22 documented as of this encounter
--- OUTSIDE RECORDS SUMMARY | 2024-11-11 14:00 | XMS_ITS | Encounter Summary ---
Author Organization [facility] Address [address] [place] [address] Care Team Providers Care Care Administrative Tech Name Role Phone Judy Juarez MD Primary Care Provider Judy Swanson MD Primary Care Provider Lisa Mireles MD Primary Care Provider [phone] Judy Juarez MD Primary Care Provider Lisa Mireles MD Primary Care Provider [phone] Encounter Details Date Type Department Care Team Description 04/22/2017 Transfer Records Medical Records [address] [place] [address] Abstract, Provider Social History Tobacco Use Types [...] on filedocumented in this encounter Care Teams Care Administrative Tech Relationship Specialty Start Date End Date Judy Juarez MD PCP - General Internal Medicine 01/14/17 10/23/20 Judy Juarez MD PCP - General Internal Medicine 10/24/20 11/28/20 Lisa Santos MD [address] [place] [address] PCP - General Internal Medicine 11/29/20 02/12/22 Judy Juarez MD [address] [place] [address] PCP - General Internal Medicine 02/13/22 02/14/22 Lisa Santos MD [address] [place] [address] PCP - General Internal Medicine 02/15/22 documented as of this encounter
--- OUTSIDE RECORDS SUMMARY | 2024-11-11 14:00 | XMS_ITS | Encounter Summary ---
Author Organization [facility] Address [address] [place] [address] Care Team Providers Care Parachute Officer Name Role Phone Judy Juarez MD Primary Care Provider Judy Swanson MD Primary Care Provider Lisa Mireles MD Primary Care Provider [phone] Judy Juarez MD Primary Care Provider Lisa Mireles MD Primary Care Provider [phone] Encounter Details Date Type Department Care Team Description 08/30/2017 [facility] Medical Records [address] [place] [address] Social History Tobacco Use Types Packs/Day Years [...] on filedocumented in this encounter Care Teams Parachute Officer Relationship Specialty Start Date End Date Judy Juarez MD PCP - General Internal Medicine 01/14/17 10/23/20 Judy Juarez MD PCP - General Internal Medicine 10/24/20 11/28/20 Lisa Santos MD [address] [place] [address] PCP - General Internal Medicine 11/29/20 02/12/22 Judy Juarez MD [address] [place] [address] PCP - General Internal Medicine 02/13/22 02/14/22 Lisa Santos MD [address] [place] [address] PCP - General Internal Medicine 02/15/22 documented as of this encounter
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
--- OUTSIDE RECORDS SUMMARY | 2024-11-11 14:00 | XMS_ITS ---
Author Organization [facility] Address [address] [facility] [address] [place] [address] Care Team Providers Care Pharmacist Per Diem Name Role Phone BRITNEY STOREY Primary Care Provider UnavailDebo Alford Unavailable [phone] REASON FOR VISIT YEAST INFECTION Encounters Encounter Location Date Provider Diagnosis [facility] [address] [place] [address] 07/30/2024 Debo Patel Plan Of Treatment Next Appt Details Provider Name:Debo head, 06/10/2025 02:40:00 PM, [address], [address], [place], [address], Progress Notes * GONZALOTROY GruberBaldoDOB:1970 (54 yo F)Acc No.[id number]:07/30/2024 Patient:?JAIME SÁNCHEZ :1970???Age:54 Y???Sex:Female Address:[address] [place] [address], [address] * true * Date:? Generated for Printi ng/Fajoselyng/eTransmitting on:?11/11/2024 01:59 PM EDT
--- OUTSIDE RECORDS SUMMARY | 2024-11-11 14:00 | XMS_ITS | Encounter Summary ---
Author Organization [facility] Address [address] [place] [address] Care Team Providers Care Learning Technologist Name Role Phone Judy Juarez MD Primary Care Provider Judy Swanson MD Primary Care Provider Lisa Mireles MD Primary Care Provider [phone] Judy Juarez MD Primary Care Provider Lisa Mireles MD Primary Care Provider [phone] Encounter Details Date Type Department Care Team Description 05/07/2018 Pigs Feet Cleaner Report Medical Records [address] [place] [address] Ashutosh Gaytan MD Social History Tobacco Use [...] on filedocumented in this encounter Care Teams Learning Technologist Relationship Specialty Start Date End Date Judy Juarez MD PCP - General Internal Medicine 01/14/17 10/23/20 Judy Juarez MD PCP - General Internal Medicine 10/24/20 11/28/20 Lisa Santos MD [address] [place] [address] PCP - General Internal Medicine 11/29/20 02/12/22 Judy Juarez MD [address] [place] [address] PCP - General Internal Medicine 02/13/22 02/14/22 Lisa Santos MD [address] [place] [address] PCP - General Internal Medicine 02/15/22 documented as of this encounter
--- OUTSIDE RECORDS SUMMARY | 2024-11-11 14:00 | XMS_ITS | Encounter Summary ---
Author Organization [facility] Address [address] [place] [address] Care Team Providers Care Observation Nurse Name Role Phone Judy Juarez MD Primary Care Provider Judy Swanson MD Primary Care Provider Lisa Mireles MD Primary Care Provider Judy Juarez MD Primary Care Provider Lisa Mireles MD Primary Care Provider [phone] Reason for Visit * Reason Onset Date Comments APPOINTMENT 07/03/2018 external echo Encounter Details Date Type Department Care Team Description 07/03/2018 Telephone [facility] - [address] [address] Judy Juarez MD APPOINTMENT (external echo) Social [...] 07/07/2018 8:39 AM EST Form faxed to [facility] for authorization [id number] * Telephone Encounter - Zander Burns - 07/03/2018 10:54 AM EST Dear provider, due to limited access at this time, the echocardiogram order you placed for Antonio Harrington has been sent externally to [facility] to be performed. The order has been faxed to our Prior Authorization pool. You are not required to take any further action. documented in this encounter Plan of Treatment Not on file documented as of this encounter Visit Diagnoses Not on filedocumented in this encounter Care Teams Observation Nurse Relationship Specialty Start Date End Date Judy Juarez MD PCP - General Internal Medicine 01/14/17 10/23/20 Judy Juarez MD PCP - General Internal Medicine 10/24/20 11/28/20 Lisa Santos MD [address] [place] [address] PCP - General Internal Medicine 11/29/20 02/12/22 Judy Juarez MD [address] [place], [place] [address] PCP - General Internal Medicine 02/13/22 02/14/22 Lisa Santos MD [address] [place] [address] PCP - General Internal Medicine 02/15/22 documented as of this encounter
--- OUTSIDE RECORDS SUMMARY | 2024-11-11 14:00 | XMS_ITS ---
Author Organization [employer] [facility] Address [address] [address] Care Team Providers Care Big Data Engineer Name Role Phone BRITNEY STOREY Primary Care Provider Unavailab Debo Seymour Unavailable [phone] REASON FOR VISIT ULTRA - BLOATING PAIN Encounters Encounter Location Date Provider Diagnosis [facility] [employer] [address] [place] [address] 06/19/2024 Debo Patel Plan Of Treatment Next Appt Details Provider Name:Debo head, 06/10/2025 02:40:00 PM, [address] [facility], [address], [place], [address], Progress Notes * TROY SÁNCHEZBaldoDOB:1970 (54 yo F)Acc No.[id number]:06/19/2024 PROGRESS NOTES Patient:?JAIME SÁNCHEZ Appointment Provider:?Debo head M.D. :1970???Age:54 Y???Sex:Female D ate:06/19/2024 Address:[address] [place], [place] [address] Pcp:BRITNEY STOREY Subjective: * Chief Complaints: * ???1. ULTRA - BLOATING PAIN. * Medical History:? Objective: * Vitals:? Assessment: Plan: * Treatment: * Images: Billing Information: * Visit Code:? * Procedure Codes:? * Electronic signature of Mary Patel MD on 11/11/2024 at 02:00 PM EDT Sign off status: Pending * Appointment Provider:?Debo Patel M.D. Date:?06/19/2024 Generated for Jasmyn gordon/Linda/Fredrick on:?11/11/2024 02:00 PM EDT
--- OUTSIDE RECORDS SUMMARY | 2024-11-11 14:00 | XMS_ITS | Encounter Summary ---
Author Organization [facility] Address [address] [place] [address] Care Team Providers Care Project Crew Worker Name Role Phone Judy Juarez MD Primary Care Provider Norman Jain Primary Care Provider Judy Harris MD Primary Care Provider Judy Swanson MD Primary Care Provider Lisa Mireles MD Primary Care Provider [phone] Judy Juarez MD Primary Care Provider Lisa Mireles MD Primary Care Provider [phone] Encounter Details Date Type Department Care Team Description 03/27/2016 Elastic Attacher Coverstitch Report Medical Records [address] [place] [address] Corine Hyde, RD, LDN [address] [place] [address] Social History Tobacco Use Types Packs/Day Years [...] on filedocumented in this encounter Care Teams Project Crew Worker Relationship Specialty Start Date End Date Judy Juarez MD PCP - General Internal Medicine 10/12/15 12/02/16 Radhika, Norman PCP - General Internal Medicine 12/03/16 01/13/17 Judy Juarez MD PCP - General Internal Medicine 01/14/17 10/23/20 Judy Juarez MD PCP - General Internal Medicine 10/24/20 11/28/20 Lisa Santos MD [address] [place] [address] PCP - General Internal Medicine 11/29/20 02/12/22 Judy Juarez MD [address] [place], [place] [phone] PCP - General Internal Medicine 02/13/22 02/14/22 Lisa Santos MD [address] [place] [address] PCP - General Internal Medicine 02/15/22 documented as of this encounter
--- OUTSIDE RECORDS SUMMARY | 2024-11-11 14:00 | XMS_ITS | Encounter Summary ---
Author Organization [facility] Address [address] [place] [address] Care Team Providers Care Industrial Recruiter Name Role Phone Judy Juarez MD Primary Care Provider Norman Jain Primary Care Provider Judy Harris MD Primary Care Provider Judy Swanson MD Primary Care Provider Lisa Mireles MD Primary Care Provider [phone] Judy Juarez MD Primary Care Provider Lisa Mireles MD Primary Care Provider [phone] Encounter Details Date Type Department Care Team Description 06/12/2016 Review Coordinator Report Medical Records [address] [place] [address] Corine Hyde, RD, LDN [address] [place] [address] Social History Tobacco Use Types Packs/Day Years [...] Internal Medicine 10/24/20 11/28/20 Lisa Santos MD [address] [place] [address] PCP - General Internal Medicine 11/29/20 02/12/22 Judy Juarez MD [address] [place], [place] [id number] PCP - General Internal Medicine 02/13/22 02/14/22 Lisa Santos MD [address] [place] [address] PCP - General Internal Medicine 02/15/22 documented as of this encounter
--- OUTSIDE RECORDS SUMMARY | 2024-11-11 14:00 | XMS_ITS | Encounter Summary ---
Author Organization [facility] Address [address] [place] [address] Care Team Providers Care Procedures Tech Name Role Phone Judy Juarez MD Primary Care Provider Judy Swanson MD Primary Care Provider Lisa Mireles MD Primary Care Provider [phone] Judy Juarez MD Primary Care Provider Lisa Mireles MD Primary Care Provider [phone] Encounter Details Date Type Department Care Team Description 06/20/2017 Resident Care Aid Report Medical Records [address] [place] [address] Ravi Lozano MD Social History Tobacco Use [...] on filedocumented in this encounter Care Teams Procedures Tech Relationship Specialty Start Date End Date Judy Juarez MD PCP - General Internal Medicine 01/14/17 10/23/20 Judy Juarez MD PCP - General Internal Medicine 10/24/20 11/28/20 Lisa Santos MD [address] [place] [address] PCP - General Internal Medicine 11/29/20 02/12/22 Judy Juarez MD [address] [place] [address] 338[address] PCP - General Internal Medicine 02/13/22 02/14/22 Lisa Santos MD [address] [place] [address] PCP - General Internal Medicine 02/15/22 documented as of this encounter
--- OUTSIDE RECORDS SUMMARY | 2024-11-11 14:01 | XMS_ITS ---
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, Annual HYDRAULIC RUBBISH COMPACTOR MECHANIC Physical 50-59* Medications Medication SIG (Take, Route, [...] 50 MG as directed Orally Active Nystatin 351665 UNIT/GM 1 application Ex ternally Twice a [...] Encounters Encounter Location Date Provider Diagnosis Total [address] [place] [address] 06/03/2024 Debo Patel Encounter for gynecological examination [...] Reason: Provider Name:Debo head, 06/10/2025 02:40:00 PM[facility], [address], [place], [address], Progress Notes * JAIME SÁNCHEZDOB:1970 (54 yo F)Acc No.[id number]:06/03/2024 PROGRESS NOTES Patient:?JAIME SÁNCHEZ Appointment Provider:?Debo head M.D. :1970???Age:54 Y???Sex:Female D ate:06/03/2024 Address:[address] [place], [place] [id number] Pcp:BRITNEY STOREY Subjective: * Chief Complaints: * ???Annual HYDRAULIC RUBBISH COMPACTOR MECHANIC PhysicalAnnual HYDRAULIC RUBBISH COMPACTOR MECHANIC Physical 50-59* * HPI: ???New/Follow-up Patient Consult:? [...] MAMMOGRAM WAS DONE IN SEP 2022 AT [facility].? WE WILL TRY TO GET THE [...] adequate calcium via diet and supplementation ?Significant HYDRAULIC RUBBISH COMPACTOR MECHANIC problems:?no significant legal compliance officer symptoms or problems * ROS:?general:?no?chest pain.?no?palpitations.?no?headache.?no?cough.?no?shortness of breath.?no?fever.?no?unexplained weight loss.?no?nausea/vomiting.?no?change in bowel movements.?no blood in stool.?no?genitourinary complaints.?no?skin complaints.? * Medical History:? * Ticketing Agent History:?/ Para?0/0.?Sexual activity?currently sexually active.?Last Pap Smear:?05/29/23 NIL, NEG HPV, 01/25/21, NIL, NEG HPV.?Mammogram:?2022.?Abnormal Pap Smear:?Yes.?LMP and menses?Gardner.?Colonoscopy?2022.? * OB History:?Total pregnancies?0.? * Surgical History:?Colonoscop [...] 1 puff Inhalation Twice a day Nystatin 891936 UNIT/GM Powder 1 application Externally Twice a [...] puff Inhalation Twice a day Taking Nystatin 831926 UNIT/GM Powder 1 application Externally Twice a [...] * Images: Billing Information: * Visit Code:? 84185 Preventive Care New Pt. Age 40-64. 09429 Preventive Care Est Pt. Age 40-64. * Procedure Codes:? * Sign off status: Completed true * Appointment Provider:?Debo Patel M.D. Date:?06/03/2024 Generated for Jasmyn gordon/Linda/Fredrick on:?11/11/2024 02:00 PM EDT History and Physical Notes * [...] MAMMOGRAM WAS DONE IN SEP 2022 AT [facility]. WE WILL TRY TO GET THE [...] ate calcium via diet and supplementation Significant HYDRAULIC RUBBISH COMPACTOR MECHANIC problems:: n o significant legal compliance officer symptoms or problems Examination Category Sub-Category Detail [...]
--- OUTSIDE RECORDS SUMMARY | 2024-11-11 14:01 | XMS_ITS | Encounter Summary ---
Author Organization [facility] Address [address] [place] [address] Care Team Providers Care Babbitter Name Role Phone Judy Juarez MD Primary Care Provider Judy Swanson MD Primary Care Provider Lisa Mireles MD Primary Care Provider [phone] Judy Juarez MD Primary Care Provider Lisa Mireles MD Primary Care Provider [phone] Encounter Details Date Type Department Care Team Description 04/13/2019 Orders Only Medical Records [address] [place] [address] Epifanio Seth PA-C Social History Tobacco Use Types Packs/Day [...] Associated Diagnosis Comments OUTSIDE SLEEP STUDY Routine 04/09/2019 documented in this encounter Results * OUTSIDE SLEEP STUDY (04/09/2019) Epifanio Seth PA-C PULMONOLOGY documented in this encounter Visit Diagnoses Not on filedocumented in this encounter Care Teams Babbitter Relationship Specialty Start Date End Date Judy Juarez MD PCP - General Internal Medicine 6/12/17 3/21/21 Judy Juarez MD PCP - General Internal Medicine 10/24/20 11/28/20 Lisa Santos MD [address] [place] [address] PCP - General Internal Medicine 11/29/20 02/12/22 Judy Juarez MD [address] [place] [address] 99702 PCP - General Internal Medicine 02/13/22 02/14/22 Lisa Santos MD [address] [place] [address] 28078 PCP - General Internal Medicine 02/15/22 documented as of this encounter
--- OUTSIDE RECORDS SUMMARY | 2024-11-11 14:01 | XMS_ITS | Encounter Summary ---
Author Organization [facility] Address [address] [place] [address] Care Team Providers Care Hvac Installation Technician Name Role Phone Judy Juarez MD Primary Care Provider Judy Swanson MD Primary Care Provider Lisa Mireles MD Primary Care Provider [phone] Judy Juarez MD Primary Care Provider Lisa Mireles MD Primary Care Provider [phone] Encounter Details Date Type Department Care Team Description 09/19/2020 Old Medical Records Medical Records [address] [place] [address] Abstract, Provider Social History Tobacco Use Types [...] on filedocumented in this encounter Care Teams Hvac Installation Technician Relationship Specialty Start Date End Date Judy Juarez MD PCP - General Internal Medicine 01/14/17 10/23/20 Judy Juarez MD PCP - General Internal Medicine 10/24/20 11/28/20 Lisa Santos MD [address] [place] [address] [phone] PCP - General Internal Medicine 11/29/20 02/12/22 Judy Juarez MD [address] [place] [address] 27948 PCP - General Internal Medicine 02/13/22 02/14/22 Lisa Santos MD [address] [place] [address] 18827 PCP - General Internal Medicine 02/15/22 documented as of this encounter
--- OUTSIDE RECORDS SUMMARY | 2024-11-11 14:01 | XMS_ITS | Encounter Summary ---
Author Organization [facility] Address [address] [place] [address] Care Team Providers Care Welt Treater Name Role Phone Judy Juarez MD Primary Care Provider Judy Swanson MD Primary Care Provider Lisa Mireles MD Primary Care Provider [phone] Judy Juarez MD Primary Care Provider Lisa Mireles MD Primary Care Provider [phone] Encounter Details Date Type Department Care Team Description 04/02/2019 Data Entry Technician Report Medical Records [address] [place] [address] [facility] Social History Tobacco Use Types Packs/Day Years [...] on filedocumented in this encounter Care Teams Welt Treater Relationship Specialty Start Date End Date Judy Juarez MD PCP - General Internal Medicine 01/14/17 10/23/20 Judy Juarez MD PCP - General Internal Medicine 10/24/20 11/28/20 Lisa Santos MD [address] [place] [address] [id number] PCP - General Internal Medicine 11/29/20 02/12/22 Judy Juarez MD [address] [place] [address]15 PCP - General Internal Medicine 02/13/22 02/14/22 Lisa Santos MD [address] [place] [address] 35409 PCP - General Internal Medicine 02/15/22 documented as of this encounter
--- OUTSIDE RECORDS SUMMARY | 2024-11-11 14:01 | XMS_ITS | Encounter Summary ---
Author Organization [facility] Address [address] [place] [address] Care Team Providers Care Automotive Parts Counterperson Name Role Phone Judy Juarez MD Primary Care Provider Judy Swanson MD Primary Care Provider Lisa Mireles MD Primary Care Provider [phone] Judy Juarez MD Primary Care Provider Lisa Mireles MD Primary Care Provider [phone] Encounter Details Date Type Department Care Team Description 11/10/2017 Muck Farmer Report Medical Records [address] [place] [address] Abstract, Provider Social History Tobacco Use Types [...] on filedocumented in this encounter Care Teams Automotive Parts Counterperson Relationship Specialty Start Date End Date Judy Juarez MD PCP - General Internal Medicine 01/14/17 10/23/20 Judy Juarez MD PCP - General Internal Medicine 10/24/20 11/28/20 Lisa Santos MD [address] [place] [address] PCP - General Internal Medicine 11/29/20 02/12/22 Judy Juarez MD [address] [place] [address] 90339 PCP - General Internal Medicine 02/13/22 02/14/22 Lisa Santos MD [address] [place] [address] [phone] PCP - General Internal Medicine 02/15/22 documented as of this encounter
--- OUTSIDE RECORDS SUMMARY | 2024-11-11 14:01 | XMS_ITS | Encounter Summary ---
Author Organization [facility] Address [address] [place] [address] Care Team Providers Care Transition Teacher Name Role Phone Judy Juarez MD Primary Care Provider Judy Swanson MD Primary Care Provider Lisa Mireles MD Primary Care Provider [phone] Judy Juarez MD Primary Care Provider Lisa Mireles MD Primary Care Provider [phone] Encounter Details Date Type Department Care Team Description 12/11/2017 Home Health Certification Medical Records [address] [place] [address] Services, [employer] [address] [place] [address] Social History Tobacco Use Types Packs/Day Years [...] on filedocumented in this encounter Care Teams Transition Teacher Relationship Specialty Start Date End Date Judy Juarez MD PCP - General Internal Medicine 01/14/17 10/23/20 Judy Juarez MD PCP - General Internal Medicine 10/24/20 11/28/20 Lisa Santos MD [address] [place] [address] 12193 PCP - General Internal Medicine 11/29/20 02/12/22 Judy Juarez MD [address] [place] [address] 62402 PCP - General Internal Medicine 02/13/22 02/14/22 Lisa Snatos MD [address] [place] [address] 21657 PCP - General Internal Medicine 02/15/22 documented as of this encounter
--- OUTSIDE RECORDS SUMMARY | 2024-11-11 14:01 | XMS_ITS | Encounter Summary ---
Author Organization [facility] Address [address] [place] [address] Care Team Providers Care Rn Field Case Manager Name Role Phone Judy Juarez MD Primary Care Provider Judy Swanson MD Primary Care Provider Lisa Mireles MD Primary Care Provider [phone] Judy Juarez MD Primary Care Provider Lisa Mireles MD Primary Care Provider [phone] Encounter Details Date Type Department Care Team Description 12/13/2017 Latex Spooler Report Medical Records [address] [place] [address] Radha Leal Social History Tobacco Use Types [...] filedocumented in this encounter Care Teams Rn Field Case Manager Relationship Specialty Start Date End Date Judy Juarez MD PCP - General Internal Medicine 01/14/17 10/23/20 Judy Juarez MD PCP - General Internal Medicine 10/24/20 11/28/20 Lisa Santos MD [address] [place] [address] PCP - General Internal Medicine 11/29/20 02/12/22 Judy Juarez MD [address] [place] [address]21 PCP - General Internal Medicine 02/13/22 02/14/22 Lisa Santos MD [address] [place] [address]996 PCP - General Internal Medicine 02/15/22 documented as of this encounter
== END 2024-11-11 13:01 | disposition home or self-care (01) ==
LOC: HO.HMCFM 11:52
PROVIDERS: PCP Family Medicine; Visit Provider Family Medicine
DX: R74.8 Abnormal levels of other serum enzymes (principal); M17.0 Bilateral primary osteoarthritis of knee; R03.0 Elevated blood-pressure reading, without diagnosis of hypertension; M80.00XA Age-related osteoporosis with current pathological fracture, unspecified site, initial encounter for fracture; R10.11 Right upper quadrant pain; R07.0 Pain in throat

== ENCOUNTER → 2024-11-11 11:51 | Outpatient (BNVA) | payer OTHER, SELFPAY | PROVIDERS: PCP Family Medicine; Visit Provider Family Medicine | DX: R74.8 Abnormal levels of other serum enzymes (principal); M17.0 Bilateral primary osteoarthritis of knee; R03.0 Elevated blood-pressure reading, without diagnosis of hypertension; R07.0 Pain in throat | CPT/HCPCS: 87880; 99212 ==

== ENCOUNTER 2024-12-02 12:58 | Outpatient (AMB) | payer OTHER, SELFPAY ==
--- NOTE | 2024-12-02 13:09 | A.OFFVIS_ITS ---
Vital Signs 12/02/24 13:18 Height 5 ft Weight 202 lb BMI 39.4 BP 130/70 Pulse 90 Pulse Source Pulse Oximeter Pulse Oximetry (%) 97 Oxygen Delivery Method Room Air Intake Visit Reasons: Asthma Client Delivery Manager Required: No Acoustical Tile Patternmaker: Acoustical Tile Patternmaker offered & declined Accompanied by: Self / Same As Patient Allergies Penicillins [PENICILLINS] Allergy (Severe, Verified 12/02/24 13:22) ANAPHYLAXIS simvastatin Allergy (Mild, Verified 12/02/24 13:22) weird feeling ibuprofen Adverse Reaction (Intermediate, Verified 12/02/24 13:22) stomach upset, irritates [facility]'s Medication List - Last Reconciled 12/02/24 by Bre Alejo LPN adalimumab (Humira(CF) Pen) 40 mg subcut Q2W albuterol sulfate 90 mcg/actuation 2 puffs inhalation QID PRN albuterol sulfate 2.5 mg (3 mL) inhalation Q4-6H PRN 30 days alendronate 70 mg PO QWEEK 28 days azelastine intranasal budesonide 32 mcg/actuation 1 spray intranasal DAILY cholecalciferol (vitamin D3) 50 mcg PO DAILY 3 months clotrimazole 1% 1 appful vaginal BEDTIME PRN coenzyme Q10 (Co Q-10) 50 mg PO DAILY cranberry extract 250 mg PO DAILY cyanocobalamin (vitamin B-12) 1,000 mcg PO DAILY 30 days diclofenac sodium 1% (Arthritis Pain (diclofenac)) 4 grams topical QID 30 days docusate sodium 200 mg (2 x 100 mg) PO BID epinephrine (EpiPen 2-Isma) 0.3 mg (0.3 mL) IM Q10M PRN estradiol 0.01%(0.1mg/gram) Start with application daily for 2 weeks. pea-sized to urethra 3 times a week following 30 days fluticasone propion-salmeterol 500-50 mcg/dose inhalation lamotrigine (Lamictal) 100 mg PO DAILY loratadine 10 mg PO DAILY 90 days lorazepam 0.5 mg PO BID PRN mesalamine 1,200 mg (3 x 400 mg) PO BID montelukast 10 mg PO DAILY nystatin 5 mL PO DAILY 10 days nystatin 5 mL PO DAILY 10 days nystatin-triamcinolone 100,000-0.1 unit/g-% 1 appl topical TID olopatadine 0.7% (Pataday Once Daily Relief) 1 drp ophthalmic (eye) DAILY PRN pantoprazole 20 mg PO DAILY rosuvastatin 40 mg PO DAILY tizanidine 2 mg PO TID PRN 30 days HPI HPI Asthma: Details: Josselin is a pleasant 54-year-old female, never smoker with underlying asthma, Crohn's disease and Ankylosing Spondylitis on Humira under the care of Dr. Gudino. She was referred by PCP for pulmonary evaluation. She was previously under the care of [facility] however would like to transition to this office. She is currently on Advair 500 1 inhalation QD, Singulair, rarely using albuterol MDI with good control of respiratory symptoms. She reports occasional dry cough which she attributes to allergies. She is under the care of [facility] prescribed nasacort, azelastine and claritin with moderate effect. She reports asthma was diagnosed as an adult, never requiring intubation/hospitalizations related to respiratory distress. She denies secondh and smoke exposure. She denies history of recurrent respiratory infections. She denies any occupational exposures. PENDING SALE TO [facility] Medical History Tubular adenoma Chronic idiopathic constipation Crohn disease Unspecified asthma, uncomplicated Dysuria Surgical History Hx of colonoscopy History of esophagogastroduodenoscopy (EGD) No pertinent past surgical history Family History Father Suicide Mother Hypertension Diabetes Paternal Grandmother Stroke Brother In good health Sister In good health Social History Housing: Other Housing Other:: mobile home Alcohol intake: current Alcohol intake frequency: does not drink Patient Tobacco Use Status: Never used Tobacco e-Cigarette/Vaping Use: Never Used Second Hand Smoke Exposure: Yes service: No Current occupational status: disabled Current occupational exposures/hazards: No Cognitive needs: No Hearing needs: No Vision needs: No Review of Systems Const Denies chills, Denies excessive sweating, Denies fever(s), Denies headache(s) and Denies night sweats Eyes Denies dry eyes, Denies irritation and Denies itchy eyes ENT Reports Normal hearing present, Denies headache(s), Denies nasal congestion, Denies nasal discharge and Denies sore throat Card Denies chest pain, Denies chest pain at rest, Denies chest pain with activity, Denies claudication, Denies leg edema, Denies dyspnea, Denies dyspnea on exertion, Denies orthopnea and Denies paroxysmal nocturnal dyspnea Resp Denies chest congestion, Denies excessive phlegm production, Denies pain on inspiration, Denies pain with cough, Denies dyspnea, Denies dyspnea on exertion, Denies stridor and Denies wheezing Musc Denies myalgias Neuro Reports Normal hearing present and Denies headache(s) Endo Denies excessive sweating Kevin/Lymph Denies lymphadenopathy Aller/Immun Denies itchy eyes, Denies seasonal rhinorrhea and Denies wheezing Physical Exam Vital Signs: Last Vital Signs Pulse 90 12/02/24 13:18 BP 130/70 12/02/24 13:18 Pulse Ox 97 12/02/24 13:18 Oxygen Delivery Method Room Air 12/02/24 13:18 BMI result Body Mass Index 39.4 Const General: cooperative, healthy appearing, comfortable, no acute distress, well developed and alert Nutritional Appearance: obese Orientation/consciousness: patient oriented x3 Limitations: no limitations HEENT Head: Yes normal to inspection, Yes normocephalic and Yes atraumatic Ears: hearing grossly normal bilaterally and external ears normal Eyes General: appearance normal, both eyes and all related structures Eyelids: Yes eyelids normal Sclerae: sclerae normal EOM: EOMs intact bilaterally Neck Neck: Yes normal visual inspection and Yes no lymphadenopathy Lymphatic: no lymphadenopathy noted Chest Chest palpation & inspection: normal inspection of the chest Resp Effort & Inspection: normal respiratory effort, able to speak in complete sentences, no audible wheezes, no cough, no stridor, not tachypneic, no tripod positioning and no use of accessory muscles Auscultation: clear to auscultation bilaterally Cardio Jugular venous distension: no JVD Rate: regular rate Rhythm: regular rhythm Skin Other: warm, dry General skin exam: no rashes or lesions noted Neuro General: patient oriented x3 Cranial nerves: Yes Normal hearing present Cognition (Neuro): normal cognition Gait exam (Neuro): Normal gait present Extrem General: Yes normal to inspection, Yes capillary refill normal, Yes no clubbing, cyanosis or edema and Yes no pedal edema Psych Appearance: grossly normal and well kempt Speech and movement: Normal speech and movement present and Clear speech present Affect: normal affect Attitude: cooperative Thought process: Normal thought process present Thought content: Normal thought content present Insight: Good insight present (Psych) Judgement: Good judgement present (Psych) Assessment & Plan Assessment & Plan (1) Asthma: Code(s): J45.909 - Unspecified asthma, uncomplicated Category: Medical (2) Cough: Code(s): R05.9 - Cough, unspecified Category: Medical (3) Allergic rhinitis: Code(s): J30.9 - Allergic rhinitis, unspecified Category: Medical Plan Josselin presents with known history of asthma well controlled on current regimen of Advair 500 mcg 1 inhalation QD, infrequently requiring albuterol MDI. She does note ongoing cough likely from post nasal drip, encouraged patient to increase use of nasal sprays and consider being reevaluated through allergy. Will send for CXR to assess for any underlying parenchymal condition, no signs suggestive of infectious process at this time. Encouraged patient if no improvement with antihistamines and nasal sprays to increase Advair to 1 inhalation BID vs increasing use of albuterol MDI. She reports prior PFT many years ago through [facility] and not interested in repeating, report not available. All questions were answered and patient is in agreement of plan. Will follow up in 6-8 weeks or sooner if needed. Orders: Orders XR chest 2V Today R05.9 - Cough, unspecified Medications: New fluticasone propion-salmeterol 500-50 mcg/dose (Advair Diskus) 1 inh inhalation Q12H 60 ea 6RF Refilled albuterol sulfate 90 mcg/actuation 2 puffs inhalation QID PRN 6.7 grams 4RF wheezing Coding Level of Care Code New Pt Level 4 (16044) Diagnoses Asthma J45.909 Cough R05.9 Allergic rhinitis J30.9
[2024-12-02 13:18] VITALS: BP 130/70; PULSE 90; O2SAT 97; BMI 39.4
--- OUTSIDE RECORDS SUMMARY | 2024-12-02 14:14 | XMS_ITS | Encounter Summary ---
Author Organization [facility] Address [address] [place] [address] Care Team Providers Care Television Newscast Director Name Role Phone Bindu Sanders MD Primary Care Provider Judy Harris MD Primary Care Provider Norman Jain Primary Care Provider Judy Harris MD Primary Care Provider Judy Swanson MD Primary Care Provider Lisa Mireles MD Primary Care Provider [phone] Judy Juarez MD Primary Care Provider Lisa Mireles MD Primary Care Provider [phone] Encounter Details Date Type Department Care Team Description 09/23/2015 Guest Request Runner Report Medical Records [address] [place] [address] Bindu Sanders MD Social History Tobacco Use [...] on filedocumented in this encounter Care Teams Television Newscast Director Relationship Specialty Start Date End Date Bindu Sanders MD PCP - General Internal Medicine 09/29/15 10/11/15 Judy Juarez MD PCP - General Internal Medicine 10/12/15 12/02/16 Radhika, Pcp PCP - General Internal Medicine 12/03/16 01/13/17 Judy Juarez MD PCP - General Internal Medicine 01/14/17 10/23/20 Judy Juarez MD PCP - General Internal Medicine 10/24/20 11/28/20 Lisa Santos MD [address] [place] [address] 25272 PCP - General Internal Medicine 11/29/20 02/12/22 Judy Juarez MD [address] [place] [address] 17559 PCP - General Internal Medicine 02/13/22 02/14/22 Lisa Santos MD [address] [place] [address] 81026 PCP - General Internal Medicine 02/15/22 documented as of this encounter
--- OUTSIDE RECORDS SUMMARY | 2024-12-02 14:15 | XMS_ITS | Encounter Summary ---
Author Organization [facility] Address [address] [place] [address] Care Team Providers Care Barman Name Role Phone Lisa Santos MD Primary Care Provider [phone] Judy Juarez MD Primary Care Provider [facility] Lisa Santos MD Primary Care Provider [phone] Encounter Details Date Type Department Care Team Description 03/17/2021 Business Doc Medical Records [address] [place] [address]70 Abstract, Provider Social History Tobacco Use Types [...] on filedocumented in this encounter Care Teams Barman Relationship Specialty Start Date End Date Lisa Santos MD [address] [place] [address] [id number] PCP - General Internal Medicine 11/29/20 02/12/22 Judy Juarez MD [address] [place] [address] 09408 PCP - General Internal Medicine 02/13/22 02/14/22 Lisa Santos MD [address] [place] [address] PCP - General Internal Medicine 02/15/22 documented as of this encounter
--- OUTSIDE RECORDS SUMMARY | 2024-12-02 14:15 | XMS_ITS | Encounter Summary ---
Author Organization [facility] Address [address] [place] [address] Care Team Providers Care Meat Soaker Name Role Phone Judy Juarez MD Primary Care Provider Judy Swanson MD Primary Care Provider Lisa Mireles MD Primary Care Provider [phone] Judy Juarez MD Primary Care Provider Lisa Mireles MD Primary Care Provider [phone] Reason for Visit * Reason Onset Date Comments Provider Call Back 01/14/2020 Encounter Details Date Type Department Care Team Description 01/14/2020 Telephone Gastroenterology - [place] [address] [address] Kain Carolina PA-C 175 [place] [address] Provider Call Back Social History Tobacco Use [...] on filedocumented in this encounter Care Teams Meat Soaker Relationship Specialty Start Date End Date Judy Juarez MD PCP - General Internal Medicine 01/14/17 10/23/20 Judy Juarez MD PCP - General Internal Medicine 10/24/20 11/28/20 Lisa Santos MD [address] [place] [address] PCP - General Internal Medicine 11/29/20 02/12/22 Judy Juarez MD [address] [place] [address] PCP - General Internal Medicine 02/13/22 02/14/22 Lisa Santos MD [address] [place] [address] PCP - General Internal Medicine 02/15/22 documented as of this encounter
--- OUTSIDE RECORDS SUMMARY | 2024-12-02 14:15 | XMS_ITS | Encounter Summary ---
Author Organization [facility] Address [address] [place] [address] Care Team Providers Care Manager Background Name Role Phone Judy Juarez MD Primary Care Provider Judy Swanson MD Primary Care Provider Lisa Mireles MD Primary Care Provider [phone] Judy Juarez MD Primary Care Provider Lisa Mireles MD Primary Care Provider [phone] Encounter Details Date Type Department Care Team Description 08/26/2017 [facility] Medical Records [address] [place] [address] Social History Tobacco Use Types Packs/Day Years [...] on filedocumented in this encounter Care Teams Manager Background Relationship Specialty Start Date End Date Judy Juarez MD PCP - General Internal Medicine 01/14/17 10/23/20 Judy Juarez MD PCP - General Internal Medicine 10/24/20 11/28/20 Lisa Santos MD [address] [place] [address] PCP - General Internal Medicine 11/29/20 02/12/22 Judy Juarez MD [address] [place] [address] PCP - General Internal Medicine 02/13/22 02/14/22 Lisa Santos MD [address] [place] [address] PCP - General Internal Medicine 02/15/22 documented as of this encounter
--- OUTSIDE RECORDS SUMMARY | 2024-12-02 14:15 | XMS_ITS | Encounter Summary ---
Author Organization [facility] Address [address] [place] [address] Care Team Providers Care Flexographic Press Set Up Operator Name Role Phone Lisa Santos MD Primary Care Provider [phone] Judy Juarez MD Primary Care Provider [facility] Lisa Santos MD Primary Care Provider [phone] Reason for Visit * Reason Comments E-prescribe Rx Request Encounter Details Date Type Department Care Team Description 05/23/2021 Refill Gastroenterology - [place] [address] [address] Kain Carolina PA-C [address] [address] E-prescribe Rx Request Social History Tobacco Use [...] on filedocumented in this encounter Care Teams Flexographic Press Set Up Operator Relationship Specialty Start Date End Date Lisa Santos MD [address] [place] [phone] PCP - General Internal Medicine 11/29/20 02/12/22 Judy Juarez MD [address] [place] [address] PCP - General Internal Medicine 02/13/22 02/14/22 Lisa Santos MD [address] [place] [address] PCP - General Internal Medicine 02/15/22 documented as of this encounter
--- OUTSIDE RECORDS SUMMARY | 2024-12-02 14:15 | XMS_ITS | Encounter Summary ---
Author Organization [facility] Address [address] [place] [address] Care Team Providers Care Cafe Site Attendant Name Role Phone Judy Juarez MD Primary Care Provider Judy Swanson MD Primary Care Provider Lisa Mireles MD Primary Care Provider [phone] Judy Juarez MD Primary Care Provider Lisa Mireles MD Primary Care Provider [phone] Encounter Details Date Type Department Care Team Description 05/07/2018 Flight Attendant Inflight Services Report Medical Records [address] [place] [address] Ashutosh Gaytan MD Social History Tobacco Use [...] on filedocumented in this encounter Care Teams Cafe Site Attendant Relationship Specialty Start Date End Date Judy Juarez MD PCP - General Internal Medicine 01/14/17 10/23/20 Jduy Juarez MD PCP - General Internal Medicine 10/24/20 11/28/20 Lisa Santos MD [address] [place] [address] PCP - General Internal Medicine 11/29/20 02/12/22 Judy Juarez MD [address] [place] [address] PCP - General Internal Medicine 02/13/22 02/14/22 Lisa Santos MD [address] [place] [address] PCP - General Internal Medicine 02/15/22 documented as of this encounter
--- OUTSIDE RECORDS SUMMARY | 2024-12-02 14:15 | XMS_ITS ---
Author Organization [facility] Address [address] [address] Care Team Providers Care Hose Maker Name Role Phone BRITNEY STOREY Primary Care Provider Unavailab Debo Seymour Unavailable [phone] REASON FOR VISIT ULTRA - BLOATING PAIN Encounters Encounter Location Date Provider Diagnosis [facility] Mobile Location, IP [address] [place] [address] 06/19/2024 Debo Patel Plan Of Treatment Next Appt Details Provider Name:Debo head, 06/10/2025 02:40:00 PM, [address] [facility], [address], [place], [address], Progress Notes * TROY SÁNCHEZBaldoDOB:1970 (54 yo F)Acc No.[id number]:06/19/2024 PROGRESS NOTES Patient:?JAIME SÁNCHEZ Appointment Provider:?Debo head M.D. :1970???Age:54 Y???Sex:Female D ate:06/19/2024 Address:[address] [place], [place] [address] Pcp:BRITNEY STOREY Subjective: * Chief Complaints: * ???1. ULTRA - BLOATING PAIN. * Medical History:? Objective: * Vitals:? Assessment: Plan: * Treatment: * Images: Billing Information: * Visit Code:? * Procedure Codes:? * Electronic signature of Mary Patel MD on 12/02/2024 at 02:15 PM EDT Sign off status: Pending * Appointment Provider:?Debo Patel M.D. Date:?06/19/2024 Generated for Jasmyn gordon/Linda/Fredrick on:?12/02/2024 02:15 PM EDT
--- OUTSIDE RECORDS SUMMARY | 2024-12-02 14:15 | XMS_ITS | Encounter Summary ---
Author Organization [facility] Address [address] [place] [address] Care Team Providers Care Mortar Mixer Name Role Phone Judy Juarez MD Primary Care Provider Judy Swanson MD Primary Care Provider Lisa Mireles MD Primary Care Provider [phone] Judy Juarez MD Primary Care Provider Lisa Mireles MD Primary Care Provider [phone] Encounter Details Date Type Department Care Team Description 06/20/2017 Epidemiologist Report Medical Records [address] [place] [address] Ravi Lozano MD Social History Tobacco Use [...] on filedocumented in this encounter Care Teams Mortar Mixer Relationship Specialty Start Date End Date Judy Juarez MD PCP - General Internal Medicine 01/14/17 10/23/20 Judy Juarez MD PCP - General Internal Medicine 10/24/20 11/28/20 Lisa Santos MD [address] [place] [address] PCP - General Internal Medicine 11/29/20 02/12/22 Judy Juarez MD [address] [place] [address] PCP - General Internal Medicine 02/13/22 02/14/22 Lisa Santos MD [address] [place] [address] PCP - General Internal Medicine 02/15/22 documented as of this encounter
--- OUTSIDE RECORDS SUMMARY | 2024-12-02 14:15 | XMS_ITS | Encounter Summary ---
Author Organization [facility] Address [address] [place] [address] Care Team Providers Care Apple Checker Name Role Phone Judy Juarez MD Primary Care Provider Judy Swanson MD Primary Care Provider Lisa Mireles MD Primary Care Provider [phone] Judy Juarez MD Primary Care Provider Lisa Mireles MD Primary Care Provider [phone] Encounter Details Date Type Department Care Team Description 04/22/2017 Transfer Records Medical Records [address] [place] [address] Abstract, Provider Social History Tobacco Use Types [...] on filedocumented in this encounter Care Teams Apple Checker Relationship Specialty Start Date End Date Judy Juarez MD PCP - General Internal Medicine 01/14/17 10/23/20 Judy Juarez MD PCP - General Internal Medicine 10/24/20 11/28/20 Lisa Santos MD [address] [place] [address] PCP - General Internal Medicine 11/29/20 02/12/22 Judy Juarez MD [address] [place] [address] PCP - General Internal Medicine 02/13/22 02/14/22 Lisa Santos MD [address] [place] [address] PCP - General Internal Medicine 02/15/22 documented as of this encounter
--- OUTSIDE RECORDS SUMMARY | 2024-12-02 14:15 | XMS_ITS | Clinical Summary ---
Author Organization [facility] [address] [place] [address] [place] [address] Phone Care Team Providers Care Die Grinder Name Role Phone Lisa Santos MD Primary Care Provider [phone] Allergies Active Allergy Reactions Criticality Noted Date [...] time each day. 2 Active sodium chloride (Acushnet Saline) 0.65 % nasal drops 3 Drops by Each Nare route 3 times daily. 1 Active tiZANidine (ZANAFLEX) 2 mg capsule Take 1 capsule by mouth at bedtime as needed for Muscle spasms. 1 Active coenzyme Q-10 10 mg capsule Take by mouth. 7 Active Active Problems Problem Noted Date Diagnosed Date Ankylosing spondylitis ([facility] V24, [facility] V28 ) 08/07/2024 Overview (08/07/2024): Onset ~ : SI joint fusion, fused LS and T spine Humira started December 2015- held in the summer due to dental problems Episode of Iritis - 05/23 Hepatic steatosis 08/07/2024 Morbid obesity with BMI of 4 0.0-44.9, adult ([facility] V24, [facility] V28) 08/07/2024 Chronic rhinitis 09/23/2019 Vitamin B12 deficiency 05/20/2019 Snoring 01/05/2019 Overview (08/07/2024): 12/2018 Home Sleep Study did not reveal sleep apnea or nocturnal hypoxia. 04/2019 Diagnostic polysomnogram did not reveal ELIJAH or nocturnal hypoxia. Crohn's disease of large int estine without complication ([facility] V24, [facility] V28) 08/11/2018 RLS (restless legs syndrome) 05/28/2018 Thyroid nodule 12/10/2017 Fracture of lumbar spine ([facility] V24, [facility] V 28) 08/05/2017 Overview (08/07/2024): Macario fracture Sternal fracture 08/05/2017 Fracture of rib of left side 08/05/2017 Overview (08/07/2024): Left 7th and 8th fracture Lung nodules 05/05/2016 Overview (08/07/2024): on imaging at [place], followed by Dr. Gaytan. CAT scan 04/23/17: New ground glass opacities. Bilateral lung nodules Disc disease, degenerative, cervical 12/13/2015 Iron deficiency anemia 11/25/2015 Vitamin D deficiency 11/25/2015 Depression with anxiety 10/06/2015 Overview (08/07/2024): With anxiety Hypercholesteremia 10/06/2015 Moderate persistent asthma 10/06/2015 Overview (08/07/2024): Dr. Gaytan Immunizations Name Administration Dates Next Due Influenza [...] anxiety 10/06/2015 DX:Depre ssion with anxiety; COMMENT: [facility] - therapist Khushi triyohana to see her once in a week Hypercholesteremia 10/06/2015 DX:Hyperchole steremia Asthma 10/06/2015 DX:Asthma; COMME NT: Dr. Gaytan Ulcerative colitis ([facility] V24, [facility] V28) DX:Ulcerative colitis (HCC); COMMENT: Dr. Baez Ankylosing spondylitis ([facility] V24, [facility] V28) DX:Ankylosing spondylitis (H CC); COMMENT: Dr. Mckay Hepatic steatosis DX:Hepatic sher atosis Pelvic pain 11/24/2015 DX:Pelvic pain Iron deficiency anemia 11/25/2015 DX:Iron d eficiency anemia Vitamin D deficiency 11/25/2015 DX:Vitamin D deficiency Disc disease, degenerative, cervical 12/13/2015 DX:Disc disease, degenerative, cervical Lung nodules 05/2016 DX:Lung nodules; COMMENT: on imaging at [place], followed by Dr. Gaytan. Fracture of rib of left side 08/2017 DX: Fracture of rib of left side; COMMENT: Left 7th and 8th fracture Fracture of lumbar spine (CM S/HCC V24, [facility] V28) 08/2017 DX:Fracture of lumbar spine (HCC); COMMENT: Macario fracture Sternal fracture 08/2017 DX:Sternal frac ture Crohn's disease (CMS/HCC V24 , [facility] V28) DX:Crohn's disease (HCC) Family History Medical History Relation [...] is recommended in 1 year. MAMMO LOCATION: [facility], [address] [place] [address], [address], . -------- FINAL REPORT -------- Dictated By: Roselyn Martinez Dictated Date: 09/03/2024 08:19 ET Assigned Physician: Roselyn Martinez Reviewed and Electronically Signed By: Roselyn Martinez Signed Date: 09/03/2024 08:24 ET Workstation ID: [id number] Transcribed By: Self Edit Transcribed Date: 09/03/2024 [...] is recommended in 1 year. MAMMO LOCATION: [facility], [address] [place] [address], [address], . -------- FINAL REPORT -------- Dictated By: Roselyn Martinez Dictated Date: 09/03/2024 08:19 ET Assigned Physician: Roselyn Martinez Reviewed and Electronically Signed By: Roselyn Martinez Signed Date: 09/03/2024 08:24 ET Workstation ID: [id number] Transcribed By: Self Edit Transcribed Date: 09/03/2024 08:19 ET Result [facility] Lisa Santos MD IMG BI PROCEDURES Final Result * Annual BMP Blood Test (12/06/2020) [facility] Annual BMP Blood Test abstracted Result [facility] Provider HEALTH MAINTENANCE Final Result * Hepatitis C Screening (12/06/2020) [facility] Hepatitis C Screening abstracted Result [facility] Provider HEALTH MAINTENANCE Final Result * (ABNORMAL) Lipid panel (08/21/2019) [facility] LDL/HDL Ratio 4 0 - 4 Triglycerides 186(A) 0 - 150 mg/dL Cholesterol 198 0 - 200 mg/dL HDL 56 >=40 mg/dL LDL Cholesterol 105(A) 0 - 100 mg/dL Blood Venous blood specimen / Unknown Result [facility] Provider LAB BLOOD ORDERABLES Micaela l Result * HIV Screening (01/10/2018) [facility] HIV Screening abstracted Historical Provider HEALTH MAINTENANCE Final Result * Cervical Cancer Screening: HPV (12/12/2015) [facility] Cervical Cancer Screening: HPV abstracted, negative Historical Provider HEALTH MAINTENANCE Final Result * Colonoscopy (09/12/2015) Pathologist [facility] Colonoscopy no interpretation , abstracted Anatomical Region Laterality Modality Other Historical Provider HEALTH MAINTENANCE Final Result from Last 3 Months or Most Recently Relevant to Health Maintenance Insurance [employer] MEDICARE Member Subscriber Plan / Payer (Ef fective 2016-Present) Name:Josselin Harrington Relation to Subscriber:Self Name:Josselin Harrington Payer ID:[id number] Group ID:[id number] Type:Not on file Address: [place] [address] [address] [address] Care Teams Die Grinder Relationship Specialty Start Date End Date Lisa Santos MD [address] [place] [address] PCP - General Internal Medicine 02/15/22
--- OUTSIDE RECORDS SUMMARY | 2024-12-02 14:15 | XMS_ITS | Encounter Summary ---
Author Organization [facility] Address [address] [place] [address] Care Team Providers Care Sales Product Specialist Name Role Phone Judy Juarez MD Primary Care Provider Judy Swanson MD Primary Care Provider Lisa Mireles MD Primary Care Provider [phone] Judy Juarez MD Primary Care Provider Lisa Mireles MD Primary Care Provider [phone] Encounter Details Date Type Department Care Team Description 05/19/2018 Transfer Records Medical Records [address] [place] [address] Abstract, Provider Social History Tobacco Use Types [...] on filedocumented in this encounter Care Teams Sales Product Specialist Relationship Specialty Start Date End Date Judy Juarez MD PCP - General Internal Medicine 01/14/17 10/23/20 Judy Juarez MD PCP - General Internal Medicine 10/24/20 11/28/20 Lisa Santos MD [address] [place] [address] PCP - General Internal Medicine 11/29/20 02/12/22 Judy Juarez MD [address] [place] [address] PCP - General Internal Medicine 02/13/22 02/14/22 Lisa Santos MD [address] [place] [address] PCP - General Internal Medicine 02/15/22 documented as of this encounter
--- OUTSIDE RECORDS SUMMARY | 2024-12-02 14:15 | XMS_ITS | Encounter Summary ---
Author Organization [facility] Address [address] [place] [address] Care Team Providers Care Environmental Issues Instructor Name Role Phone Judy Juarez MD Primary Care Provider Judy Swanson MD Primary Care Provider Lisa Mireles MD Primary Care Provider [phone] Judy Juarez MD Primary Care Provider Lisa Mireles MD Primary Care Provider [phone] Reason for Visit * Reason Onset Date Comments Testing 06/18/2018 [id number] Encounter Details Date Type Department Care Team Description 06/18/2018 [place] Medicine/Pediatrics - [address] [address] Dinah Ortiz PA-C Testing ([id number]) Social History Tobacco Use Types Packs/Day Years [...] 8:12 AM EST CCA No auth Req [id number] @ [facility] Order forwarded to [facility] for booking documented in this encounter Plan of Treatment Not on file documented as of this encounter Visit Diagnoses Not on filedocumented in this encounter Care Teams Environmental Issues Instructor Relationship Specialty Start Date End Date Judy Juarez MD PCP - General Internal Medicine 01/14/17 10/23/20 Judy Juarez MD PCP - General Internal Medicine 10/24/20 11/28/20 Lisa Santos MD [address] [place] [address] PCP - General Internal Medicine 11/29/20 02/12/22 Judy Juarez MD [address] [place] [address] PCP - General Internal Medicine 02/13/22 02/14/22 Lisa Santos MD [address] [place] [address] PCP - General Internal Medicine 02/15/22 documented as of this encounter
--- OUTSIDE RECORDS SUMMARY | 2024-12-02 14:15 | XMS_ITS | Encounter Summary ---
Author Organization [facility] Address [address] [place] [address] Care Team Providers Care Ruffling Hemmer Automatic Name Role Phone Lisa Santos MD Primary Care Provider [phone] Judy Juarez MD Primary Care Provider [facility] Lisa Santos MD Primary Care Provider [phone] Reason for Visit * Reason Comments E-prescribe Rx Request Encounter Details Date Type Department Care Team Description 01/11/2022 Refill Gastroenterology - [place] [address] [address] Kain Carolina PA-C [address] [address] E-prescribe Rx Request Social History Tobacco Use [...] on filedocumented in this encounter Care Teams Ruffling Hemmer Automatic Relationship Specialty Start Date End Date Lisa Santos MD [address] [place] [address] PCP - General Internal Medicine 11/29/20 02/12/22 uJdy Juarez MD [address] [place] [address] PCP - General Internal Medicine 02/13/22 02/14/22 Lisa Santos MD [address] [place] [address] PCP - General Internal Medicine 02/15/22 documented as of this encounter
--- OUTSIDE RECORDS SUMMARY | 2024-12-02 14:15 | XMS_ITS | Encounter Summary ---
Author Organization [facility] Address [address] [place] [address] Care Team Providers Care Brick Cleaner Name Role Phone Community, Pcp Primary Care Provider Judy Harris MD Primary Care Provider Judy Swanson MD Primary Care Provider Lisa Mireles MD Primary Care Provider [phone] Judy Juarez MD Primary Care Provider Lisa Mireles MD Primary Care Provider [phone] Encounter Details Date Type Department Care Team Description 12/14/2016 Orders Only Medicine/Pediatrics - [address] [address] Dinah Ortiz PA-C Social History Tobacco Use [...] on filedocumented in this encounter Care Teams Brick Cleaner Relationship Specialty Start Date End Date Community, Pcp PCP - General Internal Medicine 12/03/16 01/13/17 Judy Juarez MD PCP - General Internal Medicine 01/14/17 10/23/20 Judy Juarez MD PCP - General Internal Medicine 10/24/20 11/28/20 Lisa Santos MD [address] [place] [address] PCP - General Internal Medicine 11/29/20 02/12/22 Judy Juarez MD [address] [place] [address] PCP - General Internal Medicine 02/13/22 02/14/22 Lisa Santos MD [address] [place] [address] PCP - General Internal Medicine 02/15/22 documented as of this encounter
--- OUTSIDE RECORDS SUMMARY | 2024-12-02 14:15 | XMS_ITS | Encounter Summary ---
Author Organization [facility] Address [address] [place] [address] Care Team Providers Care Woodworker Name Role Phone Judy Juarez MD Primary Care Provider Norman Jain Primary Care Provider Judy Harris MD Primary Care Provider Judy Swanson MD Primary Care Provider Lisa Mireles MD Primary Care Provider [phone] Judy Juarez MD Primary Care Provider Lisa Mireles MD Primary Care Provider [phone] Encounter Details Date Type Department Care Team Description 10/25/2015 Release of Information Medical Records [address] [place] [address] Abstract, Provider Social History Tobacco Use Types [...] on filedocumented in this encounter Care Teams Woodworker Relationship Specialty Start Date End Date Judy Juarez MD PCP - General Internal Medicine 10/12/15 12/02/16 Radhika, Pcp PCP - General Internal Medicine 12/03/16 01/13/17 Judy Juarez MD PCP - General Internal Medicine 01/14/17 10/23/20 Judy Juarez MD PCP - General Internal Medicine 10/24/20 11/28/20 Lisa Santos MD [address] [place] [address] PCP - General Internal Medicine 11/29/20 02/12/22 Judy Juarez MD [address] [place] [address] PCP - General Internal Medicine 02/13/22 02/14/22 Lisa Santos MD [address] [place] [address] PCP - General Internal Medicine 02/15/22 documented as of this encounter
--- OUTSIDE RECORDS SUMMARY | 2024-12-02 14:15 | XMS_ITS | Patient Health Record ---
Author Organization [facility] Address [address] [facility] [address] [facility] [address] [place] [address] Care Team Providers Care Mechanical Oxidizer Name Role Phone BRITNEY STOREY Primary Care Provider Unavailab Debo Seymour Unavailable [phone] Allergies Allergen (clinical drug ingredient) Drug/Non Drug [...] a day for 30 day(s) Active Nystatin 696870 UNIT/GM 1 application Ex ternally Twice a [...] Status W/U Status Risk Notes Problem Menopause (183242174) Menopausal and female climacteric states (N95.1) Active confirmed Problem Postmenopausal atrophic vaginitis (09014114) Postmenopausal atrophic vaginitis (N95.2) Active confirmed Problem Polycystic ovary syndrome (disorder) (730870582) Polycystic ovarian syndrome (E28.2) Active confirmed Problem Morbid obesity (disorder) (033469372) Morbid (severe) obesity due to excess calories (E66.01) Active confirmed Problem Hyperlipidemia (17526273) Hyperlipidemia, unspecified (E78.5) Active confirmed Problem Recurrent depression (130267788) Other recurrent depressive disorders (F33.8) Active confirmed Problem Anxiety disorder (104649804) Anxiety disorder, unspecified (F41.9) Active confirmed Problem Vitreous opacities (213511307) Other vitreous opacities, unspecified eye (H43.399) Active confirmed Problem Asthma (577142948) Other asthma (J45.998) Active confirmed Problem Crohn's disease (19912798) Crohn's disease, unspecified, with unspecified complications (K50.919) Active confirmed Problem Fatty liver (961590717) Fatty (change of) liver, not elsewhere classified (K76.0) Active confirmed Problem Ankylosing spondylitis (4762248) Ankylosing spondylitis of unspecified sites in spine (M45.9) Active confirmed Problem Gastroesophageal reflux disease with esophagitis (disorder) (816431461) Gastro-esophageal reflux disease with esophagitis, without bleeding (K21.00) Active confirmed Vital Signs Temperature 97.4 degrees Fahrenheit 06/03/2024 Blood pressure diastolic 84 mm Hg 06/03/2024 Height 59 in 06/03/2024 Blood pressure systolic 124 mm Hg 06/03/2024 Weight 193 lbs 06/03/2024 BMI 38.98 kg/m2 06/03/2024 Encounters Encounter Location Date Provider Diagnosis [facility] [employer] [place] [address] [employer] [address] [place] [address] 06/19/2024 Debo Patel [facility] [employer] [place] [place] [address] [employer] [address] [address] 06/03/2024 Debo Patel Encounter for gynecological examination (general) (routine) without abnormal findings Z01.419 ; Encounter for screening mammogram for malignant neoplasm of breast Z12.31 and Acute candidiasis of vulva and vagina B37.31 [facility] [employer] [place] [place] [address] [employer] [address] [address] 07/30/2024 Debo Patel Assessments Encounter Date Diagnosis [...] Provider Name:Debo head, 06/10/2025 02:40:00 PM, [address], [address], [place], [address], Insurance Providers Payer Name Payer Address Payer Phone Subscriber Number Group Number Insured Name Patient Relationship to Insured Coverage Start Date Coverage End Date [facility] [address] [place] [address] [id number] GONZALO JAIME Self - patient is the [...]
--- OUTSIDE RECORDS SUMMARY | 2024-12-02 14:15 | XMS_ITS | Encounter Summary ---
Author Organization [facility] Address [address] [place] [address] Care Team Providers Care Polishing Machine Operator Helper Name Role Phone Lisa Santos MD Primary Care Provider [phone] Judy Juarez MD Primary Care Provider [facility] Lisa Collazo MD Primary Care Provider [phone] Reason for Visit * Reason Comments E-prescribe Rx Request Encounter Details Date Type Department Care Team Description 12/06/2020 Refill Gastroenterology - [place] [address] [facility] [address] [place] [address] Kain Carolina PA-C [address] [address] E-prescribe Rx Request Social History Tobacco Use [...] on filedocumented in this encounter Care Teams Polishing Machine Operator Helper Relationship Specialty Start Date End Date Lisa Santos MD [address] [place] [address] PCP - General Internal Medicine 11/29/20 02/12/22 Judy Juarez MD [address] [place] [address] PCP - General Internal Medicine 02/13/22 02/14/22 Lisa Santos MD [address] [place] [address] PCP - General Internal Medicine 02/15/22 documented as of this encounter
--- OUTSIDE RECORDS SUMMARY | 2024-12-02 14:15 | XMS_ITS | Encounter Summary ---
Author Organization [facility] Address [address] [place] [address] Care Team Providers Care Charging Machine Operator Name Role Phone Judy Juarez MD Primary Care Provider Judy Swanson MD Primary Care Provider Lisa Mireles MD Primary Care Provider [phone] Judy Juarez MD Primary Care Provider Lisa Mireles MD Primary Care Provider [phone] Encounter Details Date Type Department Care Team Description 12/13/2017 Guest Associate Report Medical Records [address] [place] [address] Radha Leal Social History Tobacco Use Types [...] on filedocumented in this encounter Care Teams Charging Machine Operator Relationship Specialty Start Date End Date Judy Juarez MD PCP - General Internal Medicine 01/14/17 10/23/20 Judy Juarez MD PCP - General Internal Medicine 10/24/20 11/28/20 Lisa Santos MD [address] [place] [address] PCP - General Internal Medicine 11/29/20 02/12/22 Judy Juarez MD [address] [place] [address] PCP - General Internal Medicine 02/13/22 02/14/22 Lisa Santos MD [address] [place] [address] PCP - General Internal Medicine 02/15/22 documented as of this encounter
--- OUTSIDE RECORDS SUMMARY | 2024-12-02 14:15 | XMS_ITS | Encounter Summary ---
Author Organization [facility] Address [address] [place] [address] Care Team Providers Care Evs Attendant Name Role Phone Judy Juarez MD Primary Care Provider Judy Swanson MD Primary Care Provider Lisa Mireles MD Primary Care Provider [phone] Judy Juarez MD Primary Care Provider Lisa Mireles MD Primary Care Provider [phone] Encounter Details Date Type Department Care Team Description 05/25/2019 Telephone Rheumatology - [address] [address] Jonathan Mckay MD Social History Tobacco Use [...] on filedocumented in this encounter Care Teams Evs Attendant Relationship Specialty Start Date End Date Judy Juarez MD PCP - General Internal Medicine 01/14/17 10/23/20 Judy Juarez MD PCP - General Internal Medicine 10/24/20 11/28/20 Lisa Santos MD [address] [place] [address] PCP - General Internal Medicine 11/29/20 02/12/22 Judy Juarez MD [address] [place] [address] PCP - General Internal Medicine 02/13/22 02/14/22 Lisa Santos MD [address] [place] [address] PCP - General Internal Medicine 02/15/22 documented as of this encounter
--- OUTSIDE RECORDS SUMMARY | 2024-12-02 14:15 | XMS_ITS | Encounter Summary ---
Author Organization [facility] Address [address] [place] [address] Care Team Providers Care Gum Remover Name Role Phone Judy Juarez MD Primary Care Provider Judy Swanson MD Primary Care Provider Lisa Mireles MD Primary Care Provider [phone] Judy Juarez MD Primary Care Provider Lisa Mireles MD Primary Care Provider [phone] Encounter Details Date Type Department Care Team Description 04/13/2019 Orders Only Medical Records [address] [place] [address] Epifanio Seth PA-C Social History Tobacco Use [...] on filedocumented in this encounter Care Teams Gum Remover Relationship Specialty Start Date End Date Judy Juarez MD PCP - General Internal Medicine 6/12/17 3/21/21 Judy Juarez MD PCP - General Internal Medicine 10/24/20 11/28/20 Lisa Santos MD [address] [place] [address] PCP - General Internal Medicine 11/29/20 02/12/22 Judy Juarez MD [address] [place] [address] PCP - General Internal Medicine 02/13/22 02/14/22 Lisa Santos MD [address] [place] [address] PCP - General Internal Medicine 02/15/22 documented as of this encounter
--- OUTSIDE RECORDS SUMMARY | 2024-12-02 14:15 | XMS_ITS | Encounter Summary ---
Author Organization [facility] Address [address] [place] [address] Care Team Providers Care Loss Prevention Representative Name Role Phone Judy Juarez MD Primary Care Provider Judy Swanson MD Primary Care Provider Lisa Mireles MD Primary Care Provider [phone] Judy Juarez MD Primary Care Provider Lisa Mireles MD Primary Care Provider [phone] Encounter Details Date Type Department Care Team Description 01/27/2018 Grocery Store Bagger Report Medical Records [address] [place] [address] Ravi Lozano MD Social History Tobacco Use [...] on filedocumented in this encounter Care Teams Loss Prevention Representative Relationship Specialty Start Date End Date Judy Juarez MD PCP - General Internal Medicine 01/14/17 10/23/20 Judy Juarez MD PCP - General Internal Medicine 10/24/20 11/28/20 Lisa Santos MD [address] [place] [address] PCP - General Internal Medicine 11/29/20 02/12/22 Judy Juarez MD [address] [place] [address] PCP - General Internal Medicine 02/13/22 02/14/22 Lisa Santos MD [address] [place] [address] PCP - General Internal Medicine 02/15/22 documented as of this encounter
--- OUTSIDE RECORDS SUMMARY | 2024-12-02 14:15 | XMS_ITS | Encounter Summary ---
Author Organization [facility] Address [address] [place] [address] Care Team Providers Care Ironworker Apprentice Shop Name Role Phone Judy Juarez MD Primary Care Provider Judy Swanson MD Primary Care Provider Lisa Mireles MD Primary Care Provider [phone] Judy Juarez MD Primary Care Provider Lisa Mireles MD Primary Care Provider [phone] Encounter Details Date Type Department Care Team Description 08/30/2017 [facility] Medical Records [address] [place] [address] Social History Tobacco Use Types Packs/Day Years [...] on filedocumented in this encounter Care Teams Ironworker Apprentice Shop Relationship Specialty Start Date End Date Judy Juarez MD PCP - General Internal Medicine 01/14/17 10/23/20 Judy Juarez MD PCP - General Internal Medicine 10/24/20 11/28/20 Lisa Santos MD [address] [place] [address] PCP - General Internal Medicine 11/29/20 02/12/22 Judy Juarez MD [address] [place] [address] PCP - General Internal Medicine 02/13/22 02/14/22 Lisa Santos MD [address] [place] [address] PCP - General Internal Medicine 02/15/22 documented as of this encounter
--- OUTSIDE RECORDS SUMMARY | 2024-12-02 14:15 | XMS_ITS | Encounter Summary ---
Author Organization [facility] Address [address] [place] [address] Care Team Providers Care Stamp Collector Name Role Phone Judy Juarez MD Primary Care Provider Judy Swanson MD Primary Care Provider Lisa Mireles MD Primary Care Provider [phone] Judy Juarez MD Primary Care Provider Lisa Mireles MD Primary Care Provider [phone] Encounter Details Date Type Department Care Team Description 08/27/2017 Hospital Medical Records [address] [place] [address] Gerber Murillo MD Social History Tobacco Use [...] on filedocumented in this encounter Care Teams Stamp Collector Relationship Specialty Start Date End Date Judy Juarez MD PCP - General Internal Medicine 01/14/17 10/23/20 Judy Juarez MD PCP - General Internal Medicine 10/24/20 11/28/20 Lisa Santos MD [address] [place] [phone] PCP - General Internal Medicine 11/29/20 02/12/22 Judy Juarez MD [address] [place] [address] PCP - General Internal Medicine 02/13/22 02/14/22 Lisa Santos MD [address] [place] [address] PCP - General Internal Medicine 02/15/22 documented as of this encounter
--- OUTSIDE RECORDS SUMMARY | 2024-12-02 14:15 | XMS_ITS | Encounter Summary ---
Author Organization [facility] Address [address] [place] [address] Care Team Providers Care Household Chores Name Role Phone Lisa Santos MD Primary Care Provider Judy Juarez MD Primary Care Provider [facility] Lisa Sanots MD Primary Care Provider [phone] Encounter Details Date Type Department Care Team Description 04/19/2021 Spray Blender Report Medical Records [address] [place] [address] Rick Reid MD Social History Tobacco Use Types Packs/Day [...] on filedocumented in this encounter Care Teams Household Chores Relationship Specialty Start Date End Date Lisa Santos MD [address] [place] [address] PCP - General Internal Medicine 11/29/20 02/12/22 Judy Juarez MD [address] [place] [address] PCP - General Internal Medicine 02/13/22 02/14/22 Lisa Santos MD [address] [place] [address] PCP - General Internal Medicine 02/15/22 documented as of this encounter
--- OUTSIDE RECORDS SUMMARY | 2024-12-02 14:15 | XMS_ITS ---
Author Organization [facility] Address [address] [facility] [address] [place] [address] Care Team Providers Care Incident Response Coordinator Name Role Phone BRITNEY STOREY Primary Care Provider UnavailDebo Alford Unavailable [phone] REASON FOR VISIT YEAST INFECTION Encounters Encounter Location Date Provider Diagnosis [facility] [employer] [facility] [address] [facility] [address] [place] [address] 07/30/2024 Debo Patel Plan Of Treatment Next Appt Details Provider Name:Debo head, 06/10/2025 02:40:00 PM, [address] [facility], [address], [place], [address], Progress Notes * GONZALO, GISELLAALEKSBaldoDOB:1970 (54 yo F)Acc No.[id number]:07/30/2024 Patient:?JAIME SÁNCHEZ :1970???Age:54 Y???Sex:Female Address:[address] [place] [address], [address] * true * Date:? Generated for Printi ng/Fajoselyng/eTransmitting on:?12/02/2024 02:14 PM EDT
--- OUTSIDE RECORDS SUMMARY | 2024-12-02 14:15 | XMS_ITS | Encounter Summary ---
Author Organization [facility] Address [address] [place] [address] Care Team Providers Care Scrub Wheel Operator Name Role Phone Judy Juarez MD Primary Care Provider Norman Jain Primary Care Provider Judy Harris MD Primary Care Provider Judy Swanson MD Primary Care Provider Lisa Mireles MD Primary Care Provider [phone] Judy Juarez MD Primary Care Provider Lisa Mireles MD Primary Care Provider [phone] Encounter Details Date Type Department Care Team Description 12/07/2015 Transfer Records Medical Records [address] [place] [address] Abstract, Provider Social History Tobacco Use Types [...] on filedocumented in this encounter Care Teams Scrub Wheel Operator Relationship Specialty Start Date End Date Judy Juarez MD PCP - General Internal Medicine 10/12/15 12/02/16 Radhika, Norman PCP - General Internal Medicine 12/03/16 01/13/17 Judy Juarez MD PCP - General Internal Medicine 01/14/17 10/23/20 Judy Juarez MD PCP - General Internal Medicine 10/24/20 11/28/20 Lisa Santos MD [address] [place] [address] PCP - General Internal Medicine 11/29/20 02/12/22 Judy Juarez MD [address] [place] [address] PCP - General Internal Medicine 02/13/22 02/14/22 Lisa Santos MD [address] [place] [address] PCP - General Internal Medicine 02/15/22 documented as of this encounter
--- OUTSIDE RECORDS SUMMARY | 2024-12-02 14:15 | XMS_ITS | Encounter Summary ---
Author Organization [facility] Address [address] [place] [address] Care Team Providers Care Identification Technician Name Role Phone Judy Juarez MD Primary Care Provider Judy Swanson MD Primary Care Provider Lisa Mireles MD Primary Care Provider [phone] Judy Juarez MD Primary Care Provider Lisa Mireles MD Primary Care Provider [phone] Reason for Visit * Reason Comments E-prescribe Rx Request Encounter Details Date Type Department Care Team Description 02/24/2020 Refill Allergy [place] [address] [place] [address] Susana Lobato MD E-prescribe Rx Request Social [...] rhinitis documented in this encounter Care Teams Identification Technician Relationship Specialty Start Date End Date Judy Juarez MD PCP - General Internal Medicine 01/14/17 10/23/20 Judy Juarez MD PCP - General Internal Medicine 10/24/20 11/28/20 Lisa Santos MD [address] [place] [address] PCP - General Internal Medicine 11/29/20 02/12/22 Judy Juarez MD [address] [place] [address] PCP - General Internal Medicine 02/13/22 02/14/22 Lisa Santos MD [address] [place] [address] PCP - General Internal Medicine 02/15/22 documented as of this encounter
--- OUTSIDE RECORDS SUMMARY | 2024-12-02 14:15 | XMS_ITS | Encounter Summary ---
Author Organization [facility] Address [address] [place] [address] Care Team Providers Care Product Development Consultant Name Role Phone Judy Juarez MD Primary Care Provider Norman Jain Primary Care Provider Judy Harris MD Primary Care Provider Judy Swanson MD Primary Care Provider Lisa Mireles MD Primary Care Provider [phone] Judy Juarez MD Primary Care Provider Lisa Mireles MD Primary Care Provider [phone] Encounter Details Date Type Department Care Team Description 03/26/2016 Release of Information Medical Records [address] [place] [address] Abstract, Provider Social History Tobacco Use Types [...] on filedocumented in this encounter Care Teams Product Development Consultant Relationship Specialty Start Date End Date Judy Juarez MD PCP - General Internal Medicine 10/12/15 12/02/16 Radhika, Norman PCP - General Internal Medicine 12/03/16 01/13/17 Judy Juarez MD PCP - General Internal Medicine 01/14/17 10/23/20 Judy Juarez MD PCP - General Internal Medicine 10/24/20 11/28/20 Lisa Santos MD [address] [place] [address] PCP - General Internal Medicine 11/29/20 02/12/22 Judy Juarez MD [address] [place] [address] PCP - General Internal Medicine 02/13/22 02/14/22 Lisa Santos MD [address] [place] [address] PCP - General Internal Medicine 02/15/22 documented as of this encounter
--- OUTSIDE RECORDS SUMMARY | 2024-12-02 14:15 | XMS_ITS | Encounter Summary ---
Author Organization [facility] Address [address] [place] [address] Care Team Providers Care Wood Strip Block Floor Installer Name Role Phone Judy Juarez MD Primary Care Provider Norman Jain Primary Care Provider Judy Harris MD Primary Care Provider Judy Swanson MD Primary Care Provider Lisa Mireles MD Primary Care Provider [phone] Judy Juarez MD Primary Care Provider Lisa Mireles MD Primary Care Provider [phone] Encounter Details Date Type Department Care Team Description 03/27/2016 Vehicle Glass Technician Report Medical Records [address] [place] [address] Corine Hyde, RD, LDN [address] [place] [address] Social History Tobacco Use Types Packs/Day Years [...] on filedocumented in this encounter Care Teams Wood Strip Block Floor Installer Relationship Specialty Start Date End Date Judy Juarez MD PCP - General Internal Medicine 10/12/15 12/02/16 Radhika, Norman PCP - General Internal Medicine 12/03/16 01/13/17 Judy Juarez MD PCP - General Internal Medicine 01/14/17 10/23/20 Judy Juarez MD PCP - General Internal Medicine 10/24/20 11/28/20 Lisa Santos MD [address] [place] [address] PCP - General Internal Medicine 11/29/20 02/12/22 Judy Juarez MD [address] [place], [place] [address] PCP - General Internal Medicine 02/13/22 02/14/22 Lisa Santos MD [address] [place] [address] PCP - General Internal Medicine 02/15/22 documented as of this encounter
--- OUTSIDE RECORDS SUMMARY | 2024-12-02 14:15 | XMS_ITS | Encounter Summary ---
Author Organization [facility] Address [address] [place] [address] Care Team Providers Care Ict Trainer Name Role Phone Judy Juarez MD Primary Care Provider Judy Swanson MD Primary Care Provider Lisa Mireles MD Primary Care Provider [phone] Judy Juarez MD Primary Care Provider Lisa Mireles MD Primary Care Provider [phone] Reason for Visit * Reason Onset Date Comments refill request 08/18/2019 Encounter Details Date Type Department Care Team Description 08/18/2019 Refill Gastroenterology - [address] [place] [address] Ruma Tinajero MD refill request [...] EC Tab * Telephone Encounter - Lilliana Mortno - 08/18/2019 12:19 PM EST Patient would like script to be: E-PRESCRIBED/FAXED TO PHARMACY When was the patients last office visit in Adult Medicine?: last seen by Dr. rod When was the last time the patient saw their PCP? Does patient have an upcoming appointment? Yes 08/19/2019 (THE MEDICATION IS NOT ON THE MED LIST AND IS IDENTIFIED BELOW): {MED LIST:28729) Med name: mesalamine Dosage: 1.2 g # of tablets: Local pharmacy with request for 30 -day supply Instructions: Take two daily Did you check the pharmacy information above?: YES Patients current insurance carrier: Payor: [facility] M[facility] / Plan: [facility] / Product Type: HMO Hmg-sal-Nrocncn documented in this encounter Plan of Treatment Not on file documented as of this encounter Visit Diagnoses Not on filedocumented in this encounter Care Teams Ict Trainer Relationship Specialty Start Date End Date Judy Juarez MD PCP - General Internal Medicine 01/14/17 10/23/20 Judy Juarez MD PCP - General Internal Medicine 10/24/20 11/28/20 Lisa Santos MD [address] [place] [address] PCP - General Internal Medicine 11/29/20 02/12/22 Judy Juarez MD [address] [place] [address] PCP - General Internal Medicine 02/13/22 02/14/22 Lisa Santos MD [address] [place] [address] PCP - General Internal Medicine 02/15/22 documented as of this encounter
--- OUTSIDE RECORDS SUMMARY | 2024-12-02 14:15 | XMS_ITS | Encounter Summary ---
Author Organization [facility] Address [address] [place] [address] Care Team Providers Care Escrow Officer Name Role Phone Judy Juarez MD Primary Care Provider Judy Swanson MD Primary Care Provider Lisa Mireles MD Primary Care Provider [phone] Judy Juarez MD Primary Care Provider Lisa Mireles MD Primary Care Provider [phone] Reason for Visit * Reason Onset Date Comments Advice 02/10/2019 CT today Encounter Details Date Type Department Care Team Description 02/10/2019 Telephone Gastroenterology - [address] [place] [address] Ruma Tinajero MD Advice (CT [...] [facility] Rad[facility]pt [facility] * Telephone Encounter - Kimberly Patterson - 02/10/2019 9:24 AM EDT Pt is calling asking ot talk with a nurse about her CT scan she is suppose to have done today. documented in this encounter Plan of Treatment Not on file documented as of this encounter Visit Diagnoses Not on filedocumented in this encounter Care Teams Escrow Officer Relationship Specialty Start Date End Date Judy Juarez MD PCP - General Internal Medicine 01/14/17 10/23/20 Judy Juarez MD PCP - General Internal Medicine 10/24/20 11/28/20 Lisa Santos MD [address] [place] [address] PCP - General Internal Medicine 11/29/20 02/12/22 Judy Juarez MD [address] [place] [address] PCP - General Internal Medicine 02/13/22 02/14/22 Lisa Santos MD [address] [place] [address] PCP - General Internal Medicine 02/15/22 documented as of this encounter
--- OUTSIDE RECORDS SUMMARY | 2024-12-02 14:15 | XMS_ITS ---
Author Organization [facility] Address [address] [place] [address] Care Team Providers Care Stroke Coordinator Name Role Phone BRITNEY STOREY Primary Care Provider Unavailab Debo Seymour Unavailable [phone] Allergies Allergen (clinical drug ingredient) Drug/Non Drug [...] Neg BLOOD Neg REASON FOR VISIT Annual DIRECTOR OF RESTAURANT OPERATIONS Physical, Annual DIRECTOR OF RESTAURANT OPERATIONS Physical 50-59* Medications Medication SIG (Take, Route, [...] 50 MG as directed Orally Active Nystatin 213883 UNIT/GM 1 application Ex ternally Twice a [...] Encounters Encounter Location Date Provider Diagnosis Total [address] [place] [address] 06/03/2024 Debo Patel Encounter for gynecological examination [...] Reason: Provider Name:Debo head, 06/10/2025 02:40:00 PM, [facility], [address], [place], [address], Progress Notes * JAIME SÁNCHEZDOB:1970 (54 yo F)Acc No.[id number]:06/03/2024 PROGRESS NOTES Patient:?JAIME SÁNCHEZ Appointment Provider:?Debo head M.D. :1970???Age:54 Y???Sex:Female D ate:06/03/2024 Address:[address] [place], [place] [id number] Pcp:BRITNEY STOREY Subjective: * Chief Complaints: * ???Annual DIRECTOR OF RESTAURANT OPERATIONS PhysicalAnnual DIRECTOR OF RESTAURANT OPERATIONS Physical 50-59* * HPI: ???New/Follow-up Patient Consult:? [...] MAMMOGRAM WAS DONE IN SEP 2022 AT [facility].? WE WILL TRY TO GET THE [...] adequate calcium via diet and supplementation ?Significant DIRECTOR OF RESTAURANT OPERATIONS problems:?no significant orthodontic lab technician symptoms or problems * ROS:?general:?no?chest pain.?no?palpitations.?no?headache.?no?cough.?no?shortness of breath.?no?fever.?no?unexplained weight loss.?no?nausea/vomiting.?no?change in bowel movements.?no blood in stool.?no?genitourinary complaints.?no?skin complaints.? * Medical History:? * Piece Jobber History:?/ Para?0/0.?Sexual activity?currently sexually active.?Last Pap Smear:?05/29/23 NIL, NEG HPV, 01/25/21, NIL, NEG HPV.?Mammogram:?2022.?Abnormal Pap Smear:?Yes.?LMP and menses?Jean.?Colonoscopy?2022.? * OB History:?Total pregnancies?0.? * Surgical History:?Colonoscop [...] 1 puff Inhalation Twice a day Nystatin 186633 UNIT/GM Powder 1 application Externally Twice a [...] puff Inhalation Twice a day Taking Nystatin 834081 UNIT/GM Powder 1 application Externally Twice a [...] * Images: Billing Information: * Visit Code:? 39601 Preventive Care New Pt. Age 40-64. 54226 Preventive Care Est Pt. Age 40-64. * Procedure Codes:? * Sign off status: Completed true * Appointment Provider:?Debo Patel M.D. Date:?06/03/2024 Generated for Jasmyn gordon/Linda/Gregorioitting on:?12/02/2024 02:15 PM EDT History and Physical Notes * [...] MAMMOGRAM WAS DONE IN SEP 2022 AT [facility]. WE WILL TRY TO GET THE [...] ate calcium via diet and supplementation Significant DIRECTOR OF RESTAURANT OPERATIONS problems:: n o significant orthodontic lab technician symptoms or problems Examination Category Sub-Category Detail [...]
--- OUTSIDE RECORDS SUMMARY | 2024-12-02 14:15 | XMS_ITS | Encounter Summary ---
Author Organization [facility] Address [address] [place] [address] Care Team Providers Care Paperback Machine Operator Name Role Phone Judy Juarez MD Primary Care Provider Judy Swanson MD Primary Care Provider Lisa Mireles MD Primary Care Provider [phone] Judy Juarez MD Primary Care Provider Lisa Mireles MD Primary Care Provider [phone] Encounter Details Date Type Department Care Team Description 09/03/2018 Ring Attacher Report Medical Records [address] [place] [address] Gerber Vazquez MD Social History Tobacco Use [...] on filedocumented in this encounter Care Teams Paperback Machine Operator Relationship Specialty Start Date End Date Judy Juarez MD PCP - General Internal Medicine 01/14/17 10/23/20 Judy Juarez MD PCP - General Internal Medicine 10/24/20 11/28/20 Lisa Santos MD [address] [place] [address] PCP - General Internal Medicine 11/29/20 02/12/22 Judy Juarez MD [address] [place] [address]603 PCP - General Internal Medicine 02/13/22 02/14/22 Lisa Santos MD [address] [place] [address] PCP - General Internal Medicine 02/15/22 documented as of this encounter
--- OUTSIDE RECORDS SUMMARY | 2024-12-02 14:15 | XMS_ITS | Encounter Summary ---
Author Organization [facility] Address [address] [place] [address] Care Team Providers Care Nutrition Helper Name Role Phone Judy Juarez MD Primary Care Provider Judy Swanson MD Primary Care Provider Lisa Mireles MD Primary Care Provider [phone] Judy Juarez MD Primary Care Provider Lisa Mireles MD Primary Care Provider [phone] Encounter Details Date Type Department Care Team Description 08/07/2018 Orders Only Medical Records [address] [place] [address] Dinah Ortiz PA-C Social History Tobacco Use [...] on filedocumented in this encounter Care Teams Nutrition Helper Relationship Specialty Start Date End Date Judy Juarez MD PCP - General Internal Medicine 01/14/17 10/23/20 Judy Juarez MD PCP - General Internal Medicine 10/24/20 11/28/20 Lisa Santos MD [address] [place] [address] PCP - General Internal Medicine 11/29/20 02/12/22 Judy Juarez MD [address] [place] [address] 25427 PCP - General Internal Medicine 02/13/22 02/14/22 Lisa Santos MD [address] [place] [address] 56800 PCP - General Internal Medicine 02/15/22 documented as of this encounter
--- OUTSIDE RECORDS SUMMARY | 2024-12-02 14:15 | XMS_ITS | Encounter Summary ---
Author Organization [facility] Address [address] [place] [address] Care Team Providers Care Front End Technician Name Role Phone Judy Juarez MD Primary Care Provider Norman Jain Primary Care Provider Judy Harris MD Primary Care Provider Judy Swanson MD Primary Care Provider Lisa Mireles MD Primary Care Provider [phone] Judy Juarez MD Primary Care Provider Lisa Mireles MD Primary Care Provider [phone] Encounter Details Date Type Department Care Team Description 12/06/2015 [facility] Medical Records [address] [place] [address] Abstract, Provider Social History Tobacco Use Types [...] on filedocumented in this encounter Care Teams Front End Technician Relationship Specialty Start Date End Date Judy Juarez MD PCP - General Internal Medicine 10/12/15 12/02/16 Radhika, Pcp PCP - General Internal Medicine 12/03/16 01/13/17 Judy Juarez MD PCP - General Internal Medicine 01/14/17 10/23/20 Judy Juarez MD PCP - General Internal Medicine 10/24/20 11/28/20 Lisa Santos MD [address] [place] [address]99 PCP - General Internal Medicine 11/29/20 02/12/22 Judy Juarez MD [address] [place] [address] 40988 PCP - General Internal Medicine 02/13/22 02/14/22 Lisa Santos MD [address] [place] [address] 75067 PCP - General Internal Medicine 02/15/22 documented as of this encounter
--- OUTSIDE RECORDS SUMMARY | 2024-12-02 14:16 | XMS_ITS | Encounter Summary ---
Author Organization [facility] Address [address] [place] [address] Care Team Providers Care Puff Iron Operator Name Role Phone Judy Juarez MD Primary Care Provider Judy Swanson MD Primary Care Provider Lisa Mireles MD Primary Care Provider [phone] Judy Juarez MD Primary Care Provider Lisa Mireles MD Primary Care Provider [phone] Encounter Details Date Type Department Care Team Description 01/05/2019 Orders Only Medical Records [address] [place] [address] Judy Juarez MD Social History Tobacco Use [...] on filedocumented in this encounter Care Teams Puff Iron Operator Relationship Specialty Start Date End Date Judy Juarez MD PCP - General Internal Medicine 01/14/17 10/23/20 Judy Juarez MD PCP - General Internal Medicine 10/24/20 11/28/20 Lisa Santos MD [address] [place] [address] PCP - General Internal Medicine 11/29/20 02/12/22 Judy Juarez MD [address] [place] [address] 65035 PCP - General Internal Medicine 02/13/22 02/14/22 Lisa Santos MD [address] [place] [address] 70649 PCP - General Internal Medicine 02/15/22 documented as of this encounter
--- OUTSIDE RECORDS SUMMARY | 2024-12-02 14:16 | XMS_ITS | Encounter Summary ---
Author Organization [facility] Address [address] [place] [address] Care Team Providers Care Powderman Name Role Phone Judy Juarez MD Primary Care Provider Judy Swanson MD Primary Care Provider Lisa Mireles MD Primary Care Provider [phone] Judy Juarez MD Primary Care Provider Lisa Mireles MD Primary Care Provider [phone] Encounter Details Date Type Department Care Team Description 11/10/2017 Apns Report Medical Records [address] [place] [address] Abstract, Provider Social History Tobacco Use Types [...] on filedocumented in this encounter Care Teams Powderman Relationship Specialty Start Date End Date Judy Juarez MD PCP - General Internal Medicine 01/14/17 10/23/20 Judy Juarez MD PCP - General Internal Medicine 10/24/20 11/28/20 Lisa Santos MD [address] [place] [address]1020 PCP - General Internal Medicine 11/29/20 02/12/22 Judy Juarez MD [address] [place] [address] 05274 PCP - General Internal Medicine 02/13/22 02/14/22 Lisa Santos MD [address] [place] [address] 99110 PCP - General Internal Medicine 02/15/22 documented as of this encounter
--- OUTSIDE RECORDS SUMMARY | 2024-12-02 14:16 | XMS_ITS | Encounter Summary ---
Author Organization [facility] Address [address] [place] [address] Care Team Providers Care Lot Attendant Name Role Phone Judy Juarez MD Primary Care Provider Norman Jain Primary Care Provider Judy Harris MD Primary Care Provider Judy Swanson MD Primary Care Provider Lisa Mireles MD Primary Care Provider [phone] Judy Juarez MD Primary Care Provider Lisa Mireles MD Primary Care Provider [phone] Encounter Details Date Type Department Care Team Description 06/12/2016 Release of Information Medical Records [address] [place] [address] Abstract, Provider Social History Tobacco Use Types [...] on filedocumented in this encounter Care Teams Lot Attendant Relationship Specialty Start Date End Date Judy Juarez MD PCP - General Internal Medicine 10/12/15 12/02/16 Radhika, Norman PCP - General Internal Medicine 12/03/16 01/13/17 Judy Juarez MD PCP - General Internal Medicine 01/14/17 10/23/20 Judy Juarez MD PCP - General Internal Medicine 10/24/20 11/28/20 Lisa Santos MD [address] [place] [address] PCP - General Internal Medicine 11/29/20 02/12/22 Judy Juarez MD [address] [place] [address] 80941 PCP - General Internal Medicine 02/13/22 02/14/22 Lisa Santos MD [address] [place] [address] 49338 PCP - General Internal Medicine 02/15/22 documented as of this encounter
--- OUTSIDE RECORDS SUMMARY | 2024-12-02 14:16 | XMS_ITS | Encounter Summary ---
Author Organization [facility] Address [address] [place] [address] Care Team Providers Care Program Therapist Name Role Phone Judy Juarez MD Primary Care Provider Judy Swanson MD Primary Care Provider Lisa Mireles MD Primary Care Provider [phone] Judy Juarez MD Primary Care Provider Lisa Mireles MD Primary Care Provider [phone] Encounter Details Date Type Department Care Team Description 09/19/2020 Old Medical Records Medical Records [address] [place] [address] Abstract, Provider Social History Tobacco Use Types [...] on filedocumented in this encounter Care Teams Program Therapist Relationship Specialty Start Date End Date Judy Juarez MD PCP - General Internal Medicine 01/14/17 10/23/20 Judy Juarez MD PCP - General Internal Medicine 10/24/20 11/28/20 Lisa Santos MD [address] [place] [address] [id number] PCP - General Internal Medicine 11/29/20 02/12/22 Judy Juarez MD [address] [place] [address]5495 PCP - General Internal Medicine 02/13/22 02/14/22 Lisa Santos MD [address] [place] [address]6670 PCP - General Internal Medicine 02/15/22 documented as of this encounter
--- OUTSIDE RECORDS SUMMARY | 2024-12-02 14:16 | XMS_ITS | Encounter Summary ---
Author Organization [facility] Address [address] [place] [address] Care Team Providers Care Socket Welder Helper Name Role Phone Judy Juarez MD Primary Care Provider Judy Swanson MD Primary Care Provider Lisa Mireles MD Primary Care Provider [phone] Judy Juarez MD Primary Care Provider Lisa Mireles MD Primary Care Provider [phone] Encounter Details Date Type Department Care Team Description 12/26/2018 Gang Plank Workman Report Medical Records [address] [place] [address] Nedra Barkley Np Social History Tobacco Use [...] on filedocumented in this encounter Care Teams Socket Welder Helper Relationship Specialty Start Date End Date Judy Juarez MD PCP - General Internal Medicine 01/14/17 10/23/20 Judy Juarez MD PCP - General Internal Medicine 10/24/20 11/28/20 Lisa Santos MD [address] [place] [address]20 PCP - General Internal Medicine 11/29/20 02/12/22 Judy Juarez MD [address] [place] [address] 41322 PCP - General Internal Medicine 02/13/22 02/14/22 Lisa Santos MD [address] [place] [address] 26327 PCP - General Internal Medicine 02/15/22 documented as of this encounter
== END 2024-12-02 15:23 | disposition home or self-care (01) ==
LOC: HO.HPSW 12:59
PROVIDERS: PCP Family Medicine; Referring Provider Family Medicine; Visit Provider Nurse Practitioner Family
DX: J45.909 Unspecified asthma, uncomplicated (principal); R05.9 Cough, unspecified; J30.9 Allergic rhinitis, unspecified
CPT/HCPCS: 99204

== ENCOUNTER → 2024-12-02 12:58 | Outpatient (BNVA) | payer OTHER, SELFPAY | PROVIDERS: PCP Family Medicine; Referring Provider Family Medicine; Visit Provider Nurse Practitioner Family | DX: J45.909 Unspecified asthma, uncomplicated (principal) | CPT/HCPCS: 99202 ==

== ENCOUNTER 2024-12-09 10:09 | Outpatient (AMB) | payer OTHER, SELFPAY ==
[2024-12-09 10:25] VITALS: BMI 39.4
--- NOTE | 2024-12-09 10:25 | A.OFFVIS_ITS ---
Vital Signs 12/09/24 10:25 Height 5 ft Weight 202 lb BMI 39.4 Intake Visit Reasons: Right knee pain and giving way Intake Note: Josselin is a 54 year old female who presents for follow up of her right knee pain. At her last visit on 11/04/24 she was given a right knee Durolane injection. Patient reports the injection provided some relief however she is experiencing a lot of cramping and popping. She states that at times her right knee will give out. She has tried Tylenol and anti-inflammatory medicines which gave her mild relief. Allergies Penicillins [PENICILLINS] Allergy (Severe, Verified 12/09/24 10:26) ANAPHYLAXIS simvastatin Allergy (Mild, Verified 12/09/24 10:26) weird feeling ibuprofen Adverse Reaction (Intermediate, Verified 12/09/24 10:26) stomach upset, [facility] - Last Reconciled 12/09/24 by Andrea Ponce MD adalimumab (Humira(CF) Pen) 40 mg subcut Q2W albuterol sulfate 2.5 mg (3 mL) inhalation Q4-6H PRN 30 days albuterol sulfate 90 mcg/actuation 2 puffs inhalation QID PRN alendronate 70 mg PO QWEEK 28 days azelastine intranasal budesonide 32 mcg/actuation 1 spray intranasal DAILY cholecalciferol (vitamin D3) 50 mcg PO DAILY 3 months clotrimazole 1% 1 appful vaginal BEDTIME PRN coenzyme Q10 (Co Q-10) 50 mg PO DAILY cranberry extract 250 mg PO DAILY cyanocobalamin (vitamin B-12) 1,000 mcg PO DAILY 30 days diclofenac sodium 1% (Arthritis Pain (diclofenac)) 4 grams topical QID 30 days docusate sodium 200 mg (2 x 100 mg) PO BID epinephrine (EpiPen 2-Isma) 0.3 mg (0.3 mL) IM Q10M PRN estradiol 0.01%(0.1mg/gram) Start with application daily for 2 weeks. pea-sized to urethra 3 times a week following 30 days fluticasone propion-salmeterol 500-50 mcg/dose (Advair Diskus) 1 inh inhalation Q12H fluticasone propion-salmeterol 500-50 mcg/dose inhalation lamotrigine (Lamictal) 100 mg PO DAILY loratadine 10 mg PO DAILY 90 days lorazepam 0.5 mg PO BID PRN mesalamine 1,200 mg (3 x 400 mg) PO BID montelukast 10 mg PO DAILY nystatin 5 mL PO DAILY 10 days nystatin 5 mL PO DAILY 10 days nystatin-triamcinolone 100,000-0.1 unit/g-% 1 appl topical TID olopatadine 0.7% (Pataday Once Daily Relief) 1 drp ophthalmic (eye) DAILY PRN pantoprazole 20 mg PO DAILY rosuvastatin 40 mg PO DAILY tizanidine 2 mg PO TID PRN 30 days PFSH Medical History Tubular adenoma Chronic idiopathic constipation Crohn disease Unspecified asthma, uncomplicated Dysuria Surgical History Hx of colonoscopy History of esophagogastroduodenoscopy (EGD) No pertinent past surgical history Family History Father Suicide Mother Hypertension Diabetes Paternal Grandmother Stroke Brother In good health Sister In good health Social History Housing: Other Housing Other:: mobile home Alcohol intake: current Alcohol intake frequency: does not drink Patient Tobacco Use Status: Never used Tobacco e-Cigarette/Vaping Use: Never Used Second Hand Smoke Exposure: Yes service: No Current occupational status: disabled Current occupational exposures/hazards: No Cognitive needs: No Hearing needs: No Vision needs: No Physical Exam Vital Signs: BMI result Body Mass Index 39.4 Const Other: Well-nourished well-developed very friendly female awake alert and oriented x3 in no acute distress Extrem Other: Right knee examination shows a minimal effusion, mild crepitus with range of motion, pain with range of motion Results Reviewed Results Reviewed: X-rays of the patient's right knee show moderate diffuse joint space narrowing, no acute bony abnormalities Assessment & Plan Assessment & Plan (1) Osteoarthritis of right knee: Code(s): M17.11 - Unilateral primary osteoarthritis, right knee Category: Medical Plan Ms. Harrington presents with right knee pain and mechanical symptoms due to degenerative joint disease. I did have the patient fitted with a knee brace to help with her symptoms of instability. I do find that the knee braces a medical necessity to help prevent future falls. The patient wishes to hold off on an injection for now. She will continue with her home exercise program. She will follow up with me on an as-needed basis should her symptoms not plateau at an unacceptable level over the next few months. I spent 21 minutes in reviewing the patient's records and imaging studies, seeing the patient and documenting in the medical record. Orders: Orders XR knee RT 3V Today M17.11 - Unilateral primary osteoarthritis, right knee Coding Level of Care Code Est Pt Level 3 (84936) Complex EM visit Add On G2211 Diagnoses Osteoarthritis of right knee M17.11
--- OUTSIDE RECORDS SUMMARY | 2024-12-09 11:24 | XMS_ITS ---
Author Organization [facility] Address [address] [place] [address] Care Team Providers Care Warp Worker Name Role Phone BRITNEY STOREY Primary Care Provider Unavailab Debo Seymour Unavailable [phone] Allergies Allergen (clinical drug ingredient) Drug/Non Drug [...] Neg BLOOD Neg REASON FOR VISIT Annual MANAGER UNIT Physical, Annual MANAGER UNIT Physical 50-59* Medications Medication SIG (Take, Route, [...] 50 MG as directed Orally Active Nystatin 660054 UNIT/GM 1 application Ex ternally Twice a [...] Encounters Encounter Location Date Provider Diagnosis Total [address] [place] [address] 06/03/2024 Debo Patel Encounter for gynecological examination [...] Reason: Provider Name:Debo head, 06[facility]10/2025 02:40[facility]00 [facility], [address], [place], [address], Progress Notes * JAIME SÁNCHEZDOB:1970 (54 yo F)Acc No.[id number]:06/03/2024 PROGRESS NOTES Patient:?JAIME SÁNCHEZ Appointment Provider:?Debo head M.D. :1970???Age:54 Y???Sex:Female D ate:06/03/2024 Address:[address] [place], [place] [id number] Pcp:BRITNEY STOREY Subjective: * Chief Complaints: * ???Annual MANAGER UNIT PhysicalAnnual MANAGER UNIT Physical 50-59* * HPI: ???New/Follow-up Patient Consult:? [...] SEP 2022 AT [facility].? WE WILL TRY TO GET THE RESULTS. [...] adequate calcium via diet and supplementation ?Significant MANAGER UNIT problems:?no significant dyed yarn operator symptoms or problems * ROS:?general:?no?chest pain.?no?palpitations.?no?headache.?no?cough.?no?shortness of breath.?no?fever.?no?unexplained weight loss.?no?nausea/vomiting.?no?change in bowel movements.?no blood in stool.?no?genitourinary complaints.?no?skin complaints.? * Medical History:? 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 * OB History:?Total pregnancies?0.? * Surgical History:?Colonoscop [...] 1 puff Inhalation Twice a day Nystatin 344063 UNIT/GM Powder 1 application Externally Twice a [...] puff Inhalation Twice a day Taking Nystatin 943571 UNIT/GM Powder 1 application Externally Twice a [...] * Images: Billing Information: * Visit Code:? 88398 Preventive Care New Pt. Age 40-64. 12285 Preventive Care Est Pt. Age 40-64. * Procedure Codes:? * Sign off status: Completed true * Appointment Provider:?Debo Patel M.D. Date:?06/03/2024 Generated for Jasmyn gordon/Linda/Fredrick on:?12/09/2024 11:24 AM EDT History and Physical Notes * [...] SEP 2022 AT [facility]. WE WILL TRY TO GET THE RESULTS. [...] ate calcium via diet and supplementation Significant MANAGER UNIT problems:: n o significant dyed yarn operator symptoms or problems Examination Category Sub-Category Detail [...]
--- OUTSIDE RECORDS SUMMARY | 2024-12-09 11:24 | XMS_ITS | Clinical Summary ---
Author Organization [facility] [address] [place] [address] [place] [address] Phone Care Team Providers Care Apprentice Instrument Technician Name Role Phone Lisa Santos MD Primary Care Provider [phone] Allergies Active Allergy Reactions Criticality Noted Date [...] time each day. 2 Active sodium chloride (Vernon Saline) 0.65 % nasal drops 3 Drops by Each Nare route 3 times daily. 1 Active tiZANidine (ZANAFLEX) 2 mg capsule Take 1 capsule by mouth at bedtime as needed for Muscle spasms. 1 Active coenzyme Q-10 10 mg capsule Take by mouth. 7 Active Active Problems Problem Noted Date Diagnosed Date Ankylosing spondylitis ([facility] V24, [facility] V28 ) 08/07/2024 Overview (08/07/2024): Onset ~ : SI joint fusion, fused LS and T spine Humira started December 2015- held in the summer due to dental problems Episode of Iritis - 05/23 Hepatic steatosis 08/07/2024 Morbid obesity with BMI of 4 0.0-44.9, adult ([facility] V24, [facility] V28) 08/07/2024 Chronic rhinitis 09/23/2019 Vitamin B12 deficiency 05/20/2019 Snoring 01/05/2019 Overview (08/07/2024): 12/2018 Home Sleep Study did not reveal sleep apnea or nocturnal hypoxia. 04/2019 Diagnostic polysomnogram did not reveal ELIJAH or nocturnal hypoxia. Crohn's disease of large int estine without complication ([facility] V24, [facility] V28) 08/11/2018 RLS (restless legs syndrome) 05/28/2018 Thyroid nodule 12/10/2017 Fracture of lumbar spine ([facility] V24, [facility] V 28) 08/05/2017 Overview (08/07/2024): Macario fracture Sternal fracture 08/05/2017 Fracture of rib of left side 08/05/2017 Overview (08/07/2024): Left 7th and 8th fracture Lung nodules 05/05/2016 Overview (08/07/2024): on imaging at [place], followed by Dr. Gaytan. CAT scan 04/23/17: [...] ascending colitis on bxy ESOPHAGOGASTRODUODENOSCOPY 09/12/2015 PROCEDURE: [place] ESOPHAGOGASTRODUODENOSCOPY TRANSORAL DIAGNOSTIC; COMMENT: Normal with nl duodenal, antral and GE junction bxys BREAST BIOPSY 06/25/2018 Left PROCEDURE: BX BREAST; PERC NEEDLE CORE W/IMAG GUID; COMMENT: BENIGN FIBROADENOMATOUS CHANGES. OTHER SURGICAL HISTORY 02/2021 PROCEDURE: MAMMOGRAM, SCREENING, BOTH BREASTS Medical History Medical History Date Comments Depression with anxiety 10/06/2015 DX:Depre ssion with anxiety; COMMENT: [facility] - therapist Khushi triyohana to see her once in a week Hypercholesteremia 10/06/2015 DX:Hyperchole steremia Asthma 10/06/2015 DX:Asthma; COMME NT: Dr. Gaytan Ulcerative colitis ([facility] V24, [facility] V28) DX:Ulcerative colitis (HCC); COMMENT: Dr. Baez Ankylosing spondylitis ([facility] V24, [facility] V28) DX:Ankylosing spondylitis (H CC); COMMENT: Dr. Mckay Hepatic steatosis DX:Hepatic sher atosis Pelvic pain 11/24/2015 DX:Pelvic pain Iron deficiency anemia 11/25/2015 DX:Iron d eficiency anemia Vitamin D deficiency 11/25/2015 DX:Vitamin D deficiency Disc disease, degenerative, cervical 12/13/2015 DX:Disc disease, degenerative, cervical Lung nodules 05/2016 DX:Lung nodules; COMMENT: on imaging at [place], followed by Dr. Gaytan. Fracture of rib of left side 08/2017 DX: Fracture of rib of left side; COMMENT: Left 7th and 8th fracture Fracture of lumbar spine (CM S/HCC V24, [facility] V28) 08/2017 DX:Fracture of lumbar spine (HCC); COMMENT: Macario fracture Sternal fracture 08/2017 DX:Sternal frac ture Crohn's disease (CMS/HCC V24 , [facility] V28) DX:Crohn's disease (HCC) Family History Medical [...] is recommended in 1 year. MAMMO LOCATION: [facility], [address] [place] [address], [address], . -------- FINAL REPORT -------- Dictated By: Roselyn Martinez Dictated Date: 09/03/2024 08:19 ET Assigned Physician: Roselyn Martinez Reviewed and Electronically Signed By: Roselyn Martinez Signed Date: 09/03/2024 08:24 ET Workstation ID: [id number] Transcribed By: Self Edit Transcribed Date: 09/03/2024 [...] is recommended in 1 year. MAMMO LOCATION: [facility], [address] [place] [address], [address], . -------- FINAL REPORT -------- Dictated By: Roselyn Martinez Dictated Date: 09/03/2024 08:19 ET Assigned Physician: Roselyn Martinez Reviewed and Electronically Signed By: Roselyn Martinez Signed Date: 09/03/2024 08:24 ET Workstation ID: [id number] Transcribed By: Self Edit Transcribed Date: 09/03/2024 08:19 ET Result [facility] Lisa Santos MD IMG BI PROCEDURES Final Result * Annual BMP Blood Test (12/06/2020) [facility] Annual BMP Blood Test abstracted Result [facility] Provider HEALTH MAINTENANCE Final Result * Hepatitis C Screening (12/06/2020) [facility] Hepatitis C Screening abstracted Result [facility] Provider HEALTH MAINTENANCE Final Result * (ABNORMAL) Lipid panel (08/21/2019) [facility] LDL/HDL Ratio 4 0 - 4 Triglycerides 186(A) 0 - 150 mg/dL Cholesterol 198 0 - 200 mg/dL HDL 56 >=40 mg/dL LDL Cholesterol 105(A) 0 - 100 mg/dL Blood Venous blood specimen / Unknown Result [facility] Provider LAB BLOOD ORDERABLES Micaela l Result * HIV Screening (01/10/2018) [facility] HIV Screening abstracted Historical Provider HEALTH MAINTENANCE Final Result * Cervical Cancer Screening: HPV (12/12/2015) [facility] Cervical Cancer Screening: HPV abstracted, negative Historical Provider HEALTH MAINTENANCE Final Result * Colonoscopy (09/12/2015) Pathologist [facility] Colonoscopy no interpretation , abstracted Anatomical Region Laterality Modality Other Historical Provider HEALTH MAINTENANCE Final Result from Last 3 Months or Most Recently Relevant to Health Maintenance Insurance [employer] MEDICARE Member Subscriber Plan / Payer (Ef fective 2016-Present) Name:Josselin Harrington Relation to Subscriber:Self Name:Josselin Harrington Payer ID:[id number] Group ID:[id number] Type:Not on file Address: [place] [address] [address] [address] Care Teams Apprentice Instrument Technician Relationship Specialty Start Date End Date Lisa Santos MD [address] [place] [address] PCP - General Internal Medicine 02/15/22
--- OUTSIDE RECORDS SUMMARY | 2024-12-09 11:25 | XMS_ITS | Patient Health Record ---
Author Organization [facility] Address [address] [facility] [address] [place] [address] Care Team Providers Care Miner Pick Name Role Phone BRITNEY STOREY Primary Care Provider Unavailab Debo Seymour Unavailable [phone] Allergies Allergen (clinical drug ingredient) Drug/Non Drug [...] a day for 30 day(s) Active Nystatin 743452 UNIT/GM 1 application Ex ternally Twice a [...] Status W/U Status Risk Notes Problem Menopause (006314680) Menopausal and female climacteric states (N95.1) Active confirmed Problem Postmenopausal atrophic vaginitis (48042744) Postmenopausal atrophic vaginitis (N95.2) Active confirmed Problem Polycystic ovary syndrome (disorder) (223084231) Polycystic ovarian syndrome (E28.2) Active confirmed Problem Morbid obesity (disorder) (838496859) Morbid (severe) obesity due to excess calories (E66.01) Active confirmed Problem Hyperlipidemia (54509283) Hyperlipidemia, unspecified (E78.5) Active confirmed Problem Recurrent depression (327403754) Other recurrent depressive disorders (F33.8) Active confirmed Problem Anxiety disorder (402141011) Anxiety disorder, unspecified (F41.9) Active confirmed Problem Vitreous opacities (933998289) Other vitreous opacities, unspecified eye (H43.399) Active confirmed Problem Asthma (042272605) Other asthma (J45.998) Active confirmed Problem Crohn's disease (83843967) Crohn's disease, unspecified, with unspecified complications (K50.919) Active confirmed Problem Fatty liver (158192553) Fatty (change of) liver, not elsewhere classified (K76.0) Active confirmed Problem Ankylosing spondylitis (0253907) Ankylosing spondylitis of unspecified sites in spine (M45.9) Active confirmed Problem Gastroesophageal reflux disease with esophagitis (disorder) (126353993) Gastro-esophageal reflux disease with esophagitis, without bleeding (K21.00) Active confirmed Vital Signs Temperature 97.4 degrees Fahrenheit 06/03/2024 Blood pressure diastolic 84 mm Hg 06/03/2024 Height 59 in 06/03/2024 Blood pressure systolic 124 mm Hg 06/03/2024 Weight 193 lbs 06/03/2024 BMI 38.98 kg/m2 06/03/2024 Encounters Encounter Location Date Provider Diagnosis [facility] [employer] [place] [address] [employer] [address] [place] [address] 06/19/2024 Debo Patel [facility] [place] [address] [address] [address] [address] 06/03/2024 Debo Patel Encounter for gynecological examination (general) (routine) without abnormal findings Z01.419 ; Encounter for screening mammogram for malignant neoplasm of breast Z12.31 and Acute candidiasis of vulva and vagina B37.31 [facility] [address] [address] [address] [address] 07/30/2024 Debo Patel Assessments Encounter Date Diagnosis [...] head, 06/10/2025 02:40:00 PM, [address] [facility], [address], [place], [address], Insurance Providers Payer Name Payer Address Payer Phone Subscriber Number Group Number Insured Name Patient Relationship to Insured Coverage Start Date Coverage End Date [facility] [address] [place] [address] [id number] GONZALO JAIME Self - patient is the [...]
--- OUTSIDE RECORDS SUMMARY | 2024-12-09 11:25 | XMS_ITS ---
Author Organization Total [facility] Address [address] [address] Care Team Providers Care Trichologist Name Role Phone BRITNEY STOREY Primary Care Provider Unavailab Debo Seymour Unavailable [phone] REASON FOR VISIT ULTRA - BLOATING PAIN Encounters Encounter Location Date Provider Diagnosis [facility] [address] [place] [address] 06/19/2024 Debo Patel Plan Of Treatment Next Appt Details Provider Name:Debo head, 06/10/2025 02:40:00 PM, [address] [facility], [address], [place], [address], Progress Notes * GONZALOTROY GruberBaldoDOB:1970 (54 yo F)Acc No.[id number]:06/19/2024 PROGRESS NOTES Patient:?JAIME SÁNCHEZ Appointment Provider:?Debo head M.D. :1970???Age:54 Y???Sex:Female D ate:06/19/2024 Address:[address] [place], [place] [id number] Pcp:BRITNEY STOREY Subjective: * Chief Complaints: * ???1. ULTRA - BLOATING PAIN. * Medical History:? Objective: * Vitals:? Assessment: Plan: * Treatment: * Images: Billing Information: * Visit Code:? * Procedure Codes:? * Electronic signature of Mary Patel MD on 12/09/2024 at 11:24 AM EDT Sign off status: Pending * Appointment Provider:?Debo Patel M.D. Date:?06/19/2024 Generated for Jasmyn gordon/Linda/Fredrick on:?12/09/2024 11:24 AM EDT
--- OUTSIDE RECORDS SUMMARY | 2024-12-09 11:25 | XMS_ITS ---
Author Organization Total [facility] Address [address] [facility] [address] [place] [address] Care Team Providers Care Utilization Management Um Nurse Name Role Phone BRITNEY STOREY Primary Care Provider UnavailDebo Alford Unavailable [phone] REASON FOR VISIT YEAST INFECTION Encounters Encounter Location Date Provider Diagnosis [facility] [employer] [facility] [address] [facility] [address] [place] [address] 07/30/2024 Debo Patel Plan Of Treatment Next Appt Details Provider Name:Debo head, 06/10/2025 02:40:00 PM, [address] [facility], [address], [place], [address], Progress Notes * GONZALOTROY GruberBaldoDOB:1970 (54 yo F)Acc No.[id number]:07/30/2024 Patient:?JAIME SÁNCHEZ :1970???Age:54 Y???Sex:Female Address:[address] [place] [address], [address] * true * Date:? Generated for Printi ng/Fajoselyng/eTransmitting on:?12/09/2024 11:24 AM EDT
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
== END 2024-12-09 10:44 | disposition home or self-care (01) ==
LOC: HO.HOS 10:10
PROVIDERS: PCP Family Medicine; Visit Provider Orthopaedic Surgery
DX: M17.11 Unilateral primary osteoarthritis, right knee (principal)
CPT/HCPCS: 99213; G2211

== ENCOUNTER → 2024-12-09 10:19 | Outpatient (BNV) | payer OTHER, SELFPAY | PROVIDERS: Visit Provider Radiology Diagnostic Radiology | DX: M17.11 Unilateral primary osteoarthritis, right knee (principal) | CPT/HCPCS: 73562 ==

== ENCOUNTER 2024-12-09 15:23 | Outpatient (REF) | payer OTHER, SELFPAY ==
--- NOTE | ~2024-12-09 | XR_ITS ---
EXAMINATION: XR KNEE 3 VIEWS RIGHT HISTORY: M17.11 - Unilateral primary osteoarthritis, right knee COMPARISON: There are comparison is made with the prior examination dated 06/04/2024. FINDINGS: Three views of the right knee are submitted. Osseous mineralization is normal. There is no fracture or dislocation. Again seen is moderate osteoarthritis of the patellofemoral compartment and mild osteoarthritis of the lateral compartment, with joint space narrowing and osteophyte formation. The soft tissues are unremarkable. There is no joint effusion. XR/XR knee RT 3V IMPRESSION: Osteoarthritis of the right knee as described. Electronically signed by: Bernardino Hernandez MD 12/09/2024 10:48 AM EDT
--- OUTSIDE RECORDS SUMMARY | 2024-12-10 15:59 | XMS_ITS ---
Author Organization Total [facility] Address [address] [facility] [address] [place] [address] Care Team Providers Care Sales Exec Name Role Phone BRITNEY STOREY Primary Care Provider Unavailab Debo Seymour Unavailable [phone] Allergies Allergen (clinical drug ingredient) Drug/Non Drug [...] Neg BLOOD Neg REASON FOR VISIT Annual CONDITIONING ROOM WORKER Physical, Annual CONDITIONING ROOM WORKER Physical 50-59* Medications Medication SIG (Take, Route, [...] 50 MG as directed Orally Active Nystatin 676713 UNIT/GM 1 application Ex ternally Twice a [...] Encounters Encounter Location Date Provider Diagnosis Total [address] [place] [address] 06/03/2024 Debo Patel Encounter for gynecological examination [...] Reason: Provider Name:Debo head, 06/10/2025 02:40:00 PM[facility], [address], [place], [address], Progress Notes * JAIME SÁNCHEZDOB:1970 (54 yo F)Acc No.[id number]:06/03/2024 PROGRESS NOTES Patient:?JAIME SÁNCHEZ Appointment Provider:?Debo head M.D. :1970???Age:54 Y???Sex:Female D ate:06/03/2024 Address:[address] [place], [place] [id number] Pcp:BRITNEY STOREY Subjective: * Chief Complaints: * ???Annual CONDITIONING ROOM WORKER PhysicalAnnual CONDITIONING ROOM WORKER Physical 50-59* * HPI: ???New/Follow-up Patient Consult:? [...] MAMMOGRAM WAS DONE IN SEP 2022 AT [facility].? WE WILL TRY TO GET [...] adequate calcium via diet and supplementation ?Significant CONDITIONING ROOM WORKER problems:?no significant research and development scientist symptoms or problems * ROS:?general:?no?chest pain.?no?palpitations.?no?headache.?no?cough.?no?shortness of breath.?no?fever.?no?unexplained weight loss.?no?nausea/vomiting.?no?change in bowel movements.?no blood in stool.?no?genitourinary complaints.?no?skin complaints.? * Medical History:? 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 * OB History:?Total pregnancies?0.? * Surgical History:?Colonoscop [...] 1 puff Inhalation Twice a day Nystatin 613121 UNIT/GM Powder 1 application Externally Twice a [...] puff Inhalation Twice a day Taking Nystatin 899848 UNIT/GM Powder 1 application Externally Twice a [...] * Images: Billing Information: * Visit Code:? 94088 Preventive Care New Pt. Age 40-64. 90923 Preventive Care Est Pt. Age 40-64. * Procedure Codes:? * Sign off status: Completed true * Appointment Provider:?Debo Patel M.D. Date:?06/03/2024 Generated for Jasmyn gordon/Linda/Fredrick on:?12/10/2024 03:59 PM EDT History and Physical Notes * [...] MAMMOGRAM WAS DONE IN SEP 2022 AT [facility]. WE WILL TRY TO GET [...] ate calcium via diet and supplementation Significant CONDITIONING ROOM WORKER problems:: n o significant research and development scientist symptoms or problems Examination Category Sub-Category Detail [...]
--- OUTSIDE RECORDS SUMMARY | 2024-12-10 15:59 | XMS_ITS ---
Author Organization Total [facility] Address [address] [address] Care Team Providers Care Microbiology Technologist Name Role Phone BRITNEY STOREY Primary Care Provider Unavailab Debo Seymour Unavailable [phone] REASON FOR VISIT ULTRA - BLOATING PAIN Encounters Encounter Location Date Provider Diagnosis [facility] [address] [place] [address] 06/19/2024 Debo Patel Plan Of Treatment Next Appt Details Provider Name:Debo head, 06/10/2025 02:40:00 PM, [address] [facility] [address], [address], [place], [address], Progress Notes * TROY SÁNCHEZBaldoDOB:1970 (54 yo F)Acc No.[id number]:06/19/2024 PROGRESS NOTES Patient:?JAIME SÁNCHEZ Appointment Provider:?Debo head M.D. :1970???Age:54 Y???Sex:Female D ate:06/19/2024 Address:[address] [place], [place] [id number] Pcp:BRITNEY STOREY Subjective: * Chief Complaints: * ???1. ULTRA - BLOATING PAIN. * Medical History:? Objective: * Vitals:? Assessment: Plan: * Treatment: * Images: Billing Information: * Visit Code:? * Procedure Codes:? * Electronic signature of Mary Patel MD on 12/10/2024 at 03:59 PM EDT Sign off status: Pending * Appointment Provider:?Debo Patel M.D. Date:?06/19/2024 Generated for Jasmyn godron/Linda/Fredrick on:?12/10/2024 03:59 PM EDT
--- OUTSIDE RECORDS SUMMARY | 2024-12-10 15:59 | XMS_ITS ---
Author Organization Total [facility] Address [address] [facility] [address] [place] [address] Care Team Providers Care Riddler Operator Name Role Phone BRITNEY STOREY Primary Care Provider UnavailDebo Alford Unavailable [phone] REASON FOR VISIT YEAST INFECTION Encounters Encounter Location Date Provider Diagnosis [facility] [address] [facility] [address] [place] [address] 07/30/2024 Debo Patel Plan Of Treatment Next Appt Details Provider Name:Debo head, 06/10/2025 02:40:00 PM, [address] [facility], [address], [place], [address], Progress Notes * GONZALOTROY GruberBaldoDOB:1970 (54 yo F)Acc No.[id number]:07/30/2024 Patient:?JAIME SÁNCHEZ :1970???Age:54 Y???Sex:Female Address:[address] [place] [address], [address] * true * Date:? Generated for Printi ng/Fajoselyng/eTransmitting on:?12/10/2024 03:59 PM EDT
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
--- OUTSIDE RECORDS SUMMARY | 2024-12-10 16:00 | XMS_ITS | Data Portability ---
Author Organization [place] [facility] Address [address] [place] [address] Care Team Providers Care Lumber Hacker Name Role Phone [facility] Primary Care Provider OPTUM ROBY FAX OTHER Assessment Encounter Date Assessment Date Assessment LastModified by Organization Details LastModified Time 09/03/2021 09/03/2021 Proper Personal Protective Equipment (PPE), including gloves, eye protection and masks were donned and doffed appropriately and all equipment cleaned using approved technique with germicidal disposable wipes prior to and after care of this patient according to [facility]'s infection prevention protocols. Overview/History : [...] encouraged to seek pulmonary consult through PCP [email or web address] Not available 09/03/2021 12:56:33 Plan of Treatment Reminders Order Date Submit Date Provider Last Modified By Organization Details Last Modified Time Details Appointments None recorded. Lab unlisted lab - covid-19 (novel coronavirus ) PCR 2021 [facility] (Centralized Electronic Ordering - All Locations), Patient Can Go To The Location Of Their Choice, [address] 13:16:40 Referral None recorded. Procedures None recorded. Surgeries None recorded. Imaging None recorded. Medication Orders benzonatate 200 mg capsule 2021 [facility] [place], [place], [address] [place], [address], 13:01:10 Patient TargetsNo targets recorded. Patient Instructions Encounter Date Encounter Id Patient Instructions Last Modified By Organization Details Last Modified Time 09/03/2021 [id number] Inhaler Instructions Before use, you need to [...] after cleaning actually helps it work better. [email or web address] Not available 09/03/2021 11:39:16 Reason for Referral [...] ng. Resul t repor sandee to the [facility]. This test has been autho rized by the FDA under an Emerg ency Use Autho rizat ion (EUA) for use by autho rized labor atori es. Test perfo rmed by [facility] at the [facility] and Abhijeet gutierrez, [address] [place] [address] . CLIA ID: [id number] , CAP: [id number] 96. Medic al Direc tor: Ruma Ramirez, [...] limit ed to the [facility] Se[facility] n[facility] orm at the [facility] which is certi fied under the Clini [...] Go To The Location Of Their Choice, [address] 09/05/2021 13:16:40 Result Notes None recorded. Procedures Surgical History Date Name Laterality Status Provider Name and Address Organization Details Recorded Time 09/03/19 22 ECG Interpretation - completed MARGARET Bazzi [address], [place], [address], [place] [facility] 09/03/2021 12:41:20 Imaging Results [...] 0.3 mg (0.3 mL) Into the muscle [id number] As Needed for anaphylaxis ; for 2 [...] Not Available Not Available No t Available [employer] Saline 0.65 % nasal drops active Not [...] SNOMED-CT Code Diagnosis ICD10 Code Diagnosis Note [id number] MARGARET Bazzi [facility] [address] [place] [address] 09/03/2021 11:37:26 09/04/2021 08:55:24 Viral upper respiratory tract infection 194555986 J06.9 Exposure t o communicable disease 618990690 Z20.822 Health Concerns Section Related Observation LastModified by Organization Detai ls LastModified Time None Recorded Concern Status LastModified by Organization Details LastModified Time None Recorded Advance Directives Directive None Recorded Payers Insurance Date Sequence Insurance Name Policy Number Policy Mckeon Covered Member ID Mckeon Member ID Guarantor Name 09/04/2021 1 [facility] - DOS PRIOR TO 2022 - DUAL ELIGIBLE (MEDICARE REPLACEMENT/ADV ANTAGE - HMO) Josselin Harrington [id number] Josselin Harrington 09/03/2021 1 *SELF PAY* Josselin Harrington [id number] Josselin Harrington 09/03/2021 1 MEDICARE B-[place]: [facility] Josselin Harrington [id number] Josselin Harrington 09/03/2021 1 [facility] - DOS PRIOR TO 2022 - DUAL ELIGIBLE (MEDICARE REPLACEMENT/ADV ANTAGE - HMO) Josselin Harrington [id number] Josselin Harrington Notes Date Note Type Note [...] any family hx of CAD. MARGARET Bazzi [facility] [place], [address], [place] [facility] 09/03/2021 12:56:49 OBGyn Episode No OBEpisode recorded.
--- OUTSIDE RECORDS SUMMARY | 2024-12-10 16:00 | XMS_ITS | Patient Health Record ---
Author Organization Total [facility] Address [address] [facility] [address] [place] [address] Care Team Providers Care Punch Molder Name Role Phone BRITNEY STOREY Primary Care Provider Unavailab Debo Seymour Unavailable [phone] Allergies Allergen (clinical drug ingredient) Drug/Non Drug [...] a day for 30 day(s) Active Nystatin 602242 UNIT/GM 1 application Ex ternally Twice a [...] Status W/U Status Risk Notes Problem Menopause (838645193) Menopausal and female climacteric states (N95.1) Active confirmed Problem Postmenopausal atrophic vaginitis (43865329) Postmenopausal atrophic vaginitis (N95.2) Active confirmed Problem Polycystic ovary syndrome (disorder) (893961315) Polycystic ovarian syndrome (E28.2) Active confirmed Problem Morbid obesity (disorder) (235341755) Morbid (severe) obesity due to excess calories (E66.01) Active confirmed Problem Hyperlipidemia (36707407) Hyperlipidemia, unspecified (E78.5) Active confirmed Problem Recurrent depression (090859231) Other recurrent depressive disorders (F33.8) Active confirmed Problem Anxiety disorder (041022312) Anxiety disorder, unspecified (F41.9) Active confirmed Problem Vitreous opacities (958609528) Other vitreous opacities, unspecified eye (H43.399) Active confirmed Problem Asthma (181118002) Other asthma (J45.998) Active confirmed Problem Crohn's disease (87156395) Crohn's disease, unspecified, with unspecified complications (K50.919) Active confirmed Problem Fatty liver (504339469) Fatty (change of) liver, not elsewhere classified (K76.0) Active confirmed Problem Ankylosing spondylitis (8673105) Ankylosing spondylitis of unspecified sites in spine (M45.9) Active confirmed Problem Gastroesophageal reflux disease with esophagitis (disorder) (427820321) Gastro-esophageal reflux disease with esophagitis, without bleeding (K21.00) Active confirmed Vital Signs Temperature 97.4 degrees Fahrenheit 06/03/2024 Blood pressure diastolic 84 mm Hg 06/03/2024 Height 59 in 06/03/2024 Blood pressure systolic 124 mm Hg 06/03/2024 Weight 193 lbs 06/03/2024 BMI 38.98 kg/m2 06/03/2024 Encounters Encounter Location Date Provider Diagnosis [facility] [place] [address] [employer] [address] [place] [address] 06/19/2024 Debo Patel [facility] [place] [address] [employer] [address] [address] 06/03/2024 Debo Patel Encounter for gynecological examination (general) (routine) without abnormal findings Z01.419 ; Encounter for screening mammogram for malignant neoplasm of breast Z12.31 and Acute candidiasis of vulva and vagina B37.31 [facility] [place] [address] [employer] [address] [address] 07/30/2024 Debo Patel Assessments Encounter Date Diagnosis [...] head, 06/10/2025 02:40:00 PM, [address] [facility], [address], [place], [address], Insurance Providers Payer Name Payer Address Payer Phone Subscriber Number Group Number Insured Name Patient Relationship to Insured Coverage Start Date Coverage End Date [facility] [address] [place] [address] [id number] GONZALO JAIME Self - patient is the [...]
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
== END 2024-12-09 15:24 | disposition home or self-care (01) ==
LOC: HO.HOSX 15:23
PROVIDERS: Visit Provider Orthopaedic Surgery
DX: M17.11 Unilateral primary osteoarthritis, right knee (principal)
CPT/HCPCS: 73562; 99212

== ENCOUNTER 2025-01-13 13:11 | Outpatient (REF) | payer OTHER, SELFPAY ==
--- NOTE | ~2025-01-13 | XR_ITS ---
CLINICAL HISTORY: R05.9 - Cough, unspecified 2 view chest x-ray. Comparison: None Findings: The lungs are underexpanded with bronchovascular crowding. Mild interstitial prominence. No focal consolidation. No effusion or pneumothorax. Cardiac and mediastinal contours are within normal limits. No acute osseous abnormality Impression: Underexpanded lungs with mild interstitial prominence. No focal consolidation identified. This document has been electronically signed by: Vince Yu MD on 01/14/2025 07:09:33
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
== END 2025-01-13 13:12 | disposition home or self-care (01) ==
LOC: HO.XRAY 13:11
PROVIDERS: PCP Family Medicine; Visit Provider Nurse Practitioner Family
DX: R05.9 Cough, unspecified (principal)
CPT/HCPCS: 71046

== ENCOUNTER → 2025-01-13 13:16 | Outpatient (BNV) | payer OTHER, SELFPAY | PROVIDERS: PCP Family Medicine; Visit Provider Radiology Vascular & Interventional Radiology | DX: R05.9 Cough, unspecified (principal) | CPT/HCPCS: 71046 ==

== ENCOUNTER 2025-01-14 11:36 | Outpatient (AMB) | payer OTHER, SELFPAY ==
--- NOTE | 2025-01-14 12:45 | MHC.PC.OV ---
Vital Signs 01/14/25 12:47 Height 5 ft Weight 206 lb 8 oz BMI 40.3 BP 130/80 Blood Pressure Location Rt brachial Position Sitting Respiration 14 Pulse 78 Pulse Source Pulse Oximeter Pulse Oximetry (%) 97 Oxygen Delivery Method Room Air Intake Visit Reasons: f/u blood pressures, chronic conditions Intake Note: patient is scheduled to follow up on chronic condition and blood pressure Cashier Or Checker Stock Clerk Required: No Allergies Penicillins [PENICILLINS] Allergy (Severe, Verified 01/14/25 12:49) ANAPHYLAXIS simvastatin Allergy (Mild, Verified 01/14/25 12:49) weird feeling ibuprofen Adverse Reaction (Intermediate, Verified 01/14/25 12:49) stomach upset, irritates Chrinn's Medication List - Last Reconciled 01/14/25 by Layton Ward MD adalimumab (Humira(CF) Pen) 40 mg subcut Q2W albuterol sulfate 2.5 mg (3 mL) inhalation Q4-6H PRN 30 days albuterol sulfate 90 mcg/actuation 2 puffs inhalation QID PRN alendronate 70 mg PO QWEEK 28 days azelastine intranasal budesonide 32 mcg/actuation 1 spray intranasal DAILY cholecalciferol (vitamin D3) 50 mcg PO DAILY 3 months clotrimazole 1% 1 appful vaginal BEDTIME PRN coenzyme Q10 (Co Q-10) 50 mg PO DAILY cranberry extract 250 mg PO DAILY cyanocobalamin (vitamin B-12) 1,000 mcg PO DAILY 30 days diclofenac sodium 1% (Arthritis Pain (diclofenac)) 4 grams topical QID 30 days docusate sodium 200 mg (2 x 100 mg) PO BID epinephrine (EpiPen 2-Isma) 0.3 mg (0.3 mL) IM Q10M PRN estradiol 0.01%(0.1mg/gram) Start with application daily for 2 weeks. pea-sized to urethra 3 times a week following 30 days fluticasone propion-salmeterol 500-50 mcg/dose (Advair Diskus) 1 inh inhalation Q12H fluticasone propion-salmeterol 500-50 mcg/dose inhalation lamotrigine (Lamictal) 100 mg PO DAILY loratadine 10 mg PO DAILY 90 days lorazepam 0.5 mg PO BID PRN mesalamine 1,200 mg (3 x 400 mg) PO BID montelukast 10 mg PO DAILY nystatin 5 mL PO DAILY 10 days nystatin 5 mL PO DAILY 10 days nystatin-triamcinolone 100,000-0.1 unit/g-% 1 appl topical TID olopatadine 0.7% (Pataday Once Daily Relief) 1 drp ophthalmic (eye) DAILY PRN pantoprazole 20 mg PO DAILY rosuvastatin 40 mg PO DAILY tizanidine 2 mg PO TID PRN 30 days Tobacco use date assessed: 01/24/24 Dental Screening Dental Screen Date: 11/05/23 HPI f/u blood pressures, chronic conditions HPI Details 54 y/o female presents to f/u blood sugars, chronic conditions. Recently had elevated BP readings. Blood pressure today 130/80, 78p. Not on any meds for blood pressure or blood sugar. Hx of elevated fasting glucose. A1c today 01/14/25 is 6.2%. Had been following up with Dr. Ponce for R knee pain. Osteoarthritis of R knee. Has complaints of some R knee swelling. Continues to wear her knee brace though she notes she is unsure if this is helping. She has an appt. with orthopedics next week. HPI Comments History of Present Illness Details Documentation assistance for Layton Ward MD, was provided by Jeyson Aviles, Steam Plant Records Clerk on 01/14/2025 at 1:03 PM EST. I, Dr. Ward, have read, observed, and verified documentation. [facility] Medical History Tubular adenoma Chronic idiopathic constipation Crohn disease Unspecified asthma, uncomplicated Dysuria Surgical History Hx of colonoscopy History of esophagogastroduodenoscopy (EGD) No pertinent past surgical history Family History Father Suicide Mother Hypertension Diabetes Paternal Grandmother Stroke Brother In good health Sister In good health Social History Housing: Other Housing Other:: mobile home Alcohol intake: current Alcohol intake frequency: does not drink Patient Tobacco Use Status: Never used Tobacco e-Cigarette/Vaping Use: Never Used Second Hand Smoke Exposure: Yes service: No Current occupational status: disabled Current occupational exposures/hazards: No Cognitive needs: No Hearing needs: No Vision needs: No Questionnaire Thrive Questionnaire Date Thrive assessed: 08/12/24 I am a: Patient What is your living situation today?: I choose not to answer this question Within the past 12 months, did the food you bought not last and you didn't have the money to get more?: I choose not to answer this question Within the past 12 months, did you worry whether your food would run out before you got money to buy more?: I choose not to answer this question Do you have trouble paying for medicines?: I choose not to answer this question Do you have trouble getting transportation to medical appointments?: I choose not to answer this question Do you have trouble paying your heating and electricity bill?: I choose not to answer this question Do you have trouble taking care of your child, family member or friend?: I choose not to answer this question Do you have trouble with day-to-day activities such as bathing, preparing meals, shopping, managing finances, etc.?: I choose not to answer this question Are you currently unemployed and looking for a job?: I choose not to answer this question Are you interested in more education?: I choose not to answer this question Please select the resources that you would like help with: None Currently or been in a relationship where the following occur: No concerns reported THRIVE Score: 0 ZENY-7 AMB Questionnaire ZENY-7 Date ZENY - 7 assessed: 08/12/24 Source: Developed by Drs. Bernardino Ahumada, Peri Valencia, Gordy Victoria and colleagues, with an educational hakeem from [employer]. Review of Systems Const Denies chills, Denies fatigue, Denies fever(s), Denies headache(s) and Denies weakness ENT Denies dizziness and Denies headache(s) Card Denies dyspnea Resp Denies cough, Denies dyspnea, Denies wheezing and Denies other (shortness of breath) Musc Denies numbness and Denies tingling Neuro Denies dizziness, Denies headache(s), Denies numbness, Denies tingling and Denies weakness Psych Denies anxiety and Denies depression Endo Denies fatigue Aller/Immun Denies wheezing Physical exam (Primary Care) Vital Signs: Last Vital Signs Pulse 78 01/14/25 12:47 Resp 14 01/14/25 12:47 BP 130/80 01/14/25 12:47 Pulse Ox 97 01/14/25 12:47 Oxygen Delivery Method Room Air 01/14/25 12:47 BMI result Body Mass Index 40.3 Tobacco/Smoking Status: Tobacco use Status Tobacco use date assessed 01/24/24 01/14/25 12:49 Patient Tobacco Use Status Never used Tobacco 01/14/25 12:49 e-Cigarette/Vaping Use Never Used 01/14/25 12:49 Thrive Assessment: Date of Thrive Assessment Date Thrive assessed 08/12/24 01/14/25 12:49 Currently or been in a relationship where the following occur: No concerns reported Const General: well developed; No acute distress Nutritional Appearance: well nourished and obese morbidly obese Orientation/consciousness: patient oriented x3 HENMT Head: Yes normocephalic and Yes atraumatic Eyes General: appearance normal, both eyes and all related structures Pupils: Equal, round and reactive pupils present EOM: EOMs intact bilaterally Resp Effort & Inspection: normal respiratory effort Auscultation: clear to auscultation bilaterally Cardio Rate: regular rate Rhythm: regular rhythm Heart sounds: S1 normal heart sound present, S2 normal heart sound present, no gallops, no murmurs and no rubs Neuro General: patient oriented x3 and gait normal Cranial nerves: Yes Equal, round and reactive pupils present Psych Affect: normal affect Results AMB Hemoglobin A1c AMB Hemoglobin A1c 6.2 % Last Edit by Iveth Mayer MA on 01/14/25 13:18 Coding Level of Care Code Est Pt Level 4 (08133) Diagnoses Osteoarthritis of knees, bilateral M17.0 Knee swelling M25.469 Elevated blood pressure reading R03.0 Elevated fasting glucose R73.01 Pre-diabetes R73.03 Assessment & Plan Assessment & Plan (1) Osteoarthritis of knees, bilateral: Code(s): M17.0 - Bilateral primary osteoarthritis of knee Category: Medical Plan: Osteoarthritis?in?right?knee?with?pain?and?swelling She?has?an?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time (4) Elevated fasting glucose: Code(s): R73.01 - Impaired fasting glucose Category: Medical Plan: A1c: ?6.2% Pre?diabetes - see?below (5) Pre-diabetes: Code(s): R73.03 - Prediabetes Category: Medical Plan: Encouraged?a?diet?lower?in?sugars?and?starches Will?continue?to?monitor Medications: New celecoxib 100 mg PO BID 30 days PRN 60 caps 0RF pain
[2025-01-14 12:47] VITALS: BP 130/80; PULSE 78; RESP 14; O2SAT 97; BMI 40.3
--- OUTSIDE RECORDS SUMMARY | 2025-01-14 13:45 | XMS_ITS | Encounter Summary ---
Author Organization [facility] Address [address] [place] [address] Care Team Providers Care Recruiter Account Manager Name Role Phone Bindu Sanders MD Primary Care Provider Judy Harris MD Primary Care Provider Norman Jain Primary Care Provider Judy Harris MD Primary Care Provider Judy Swanson MD Primary Care Provider Lisa Mireles MD Primary Care Provider [phone] Judy Juarez MD Primary Care Provider Lisa Mireles MD Primary Care Provider [phone] Encounter Details Date Type Department Care Team Description 09/27/2015 Transcription Report Medical Records [address] [place] [id number] Abstract, Provider Social History Tobacco Use Types Packs/Day Years Used Date Smoking Tobacco: Never Assessed Sex Assigned at Date Recorded Not on file Job Start Date Occupation Industry Not on file Not on file Not on file documented as of this encounter Plan of Treatment Not on file documented as of this encounter Visit Diagnoses Not on filedocumented in this encounter Care Teams Recruiter Account Manager Relationship Specialty Start Date End Date Bindu Sanders MD PCP - General Internal Medicine 09/29/15 10/11/15 Judy Juarez MD PCP - General Internal Medicine 10/12/15 12/02/16 Radhika, Pcp PCP - General Internal Medicine 12/03/16 01/13/17 Judy Juarez MD PCP - General Internal Medicine 01/14/17 10/23/20 Judy Juarez MD PCP - General Internal Medicine 10/24/20 11/28/20 Lisa Santos MD [address] [place] [id number] PCP - General Internal Medicine 11/29/20 02/12/22 Judy Juarez MD [address] [place] [id number] PCP - General Internal Medicine 02/13/22 02/14/22 Lisa Santos MD [address] [place] [id number] PCP - General Internal Medicine 02/15/22 documented as of this encounter
== END 2025-01-14 13:25 | disposition home or self-care (01) ==
LOC: HO.HMCFM 11:36
PROVIDERS: PCP Family Medicine; Visit Provider Family Medicine
DX: M17.0 Bilateral primary osteoarthritis of knee (principal); M25.469 Effusion, unspecified knee; R03.0 Elevated blood-pressure reading, without diagnosis of hypertension; R73.01 Impaired fasting glucose; R73.03 Prediabetes

== ENCOUNTER → 2025-01-14 11:36 | Outpatient (BNVA) | payer OTHER, SELFPAY | PROVIDERS: PCP Family Medicine; Visit Provider Family Medicine | DX: R03.0 Elevated blood-pressure reading, without diagnosis of hypertension (principal); M17.0 Bilateral primary osteoarthritis of knee; R73.01 Impaired fasting glucose; R73.03 Prediabetes | CPT/HCPCS: 83036; 99212 ==

== ENCOUNTER 2025-01-14 13:38 | Outpatient (REF) | payer OTHER, SELFPAY ==
[2025-01-14 17:51] LABS: Alanine Aminotransferase 46 U/L (0-31); Albumin Level 4.4 g/dL (3.5-5.0); Alkaline Phosphatase 76 U/L (39-117); Anion Gap 12 (12-20); Aspartate Amino Transferase 54 U/L (5-31); Bilirubin Total 0.7 mg/dL (0.0-1.0); Blood Urea Nitrogen 7 mg/dL (9-16); Calcium 9.3 mg/dL (8.4-10.2); Carbon Dioxide 28 mmol/L (22-29); Chloride 104 mmol/L (96-108); Estimated Glomerular Filt Rate > 60; Glucose Random 99 mg/dL (60-115); Potassium 4.1 mmol/L (3.3-5.1); Sodium 140 mmol/L (135-145)
== END 2025-01-14 13:39 | disposition home or self-care (01) ==
LOC: HO.WFDLDS 13:38
PROVIDERS: Visit Provider Family Medicine
DX: J45.909 Unspecified asthma, uncomplicated (principal); R73.03 Prediabetes
CPT/HCPCS: 36415; 80053

== ENCOUNTER 2025-01-29 13:35 | Outpatient (AMB) | payer OTHER, SELFPAY ==
--- NOTE | 2025-01-29 13:13 | A.OFFVIS_ITS ---
Vital Signs 01/29/25 13:37 Height 5 ft Weight 208 lb BMI 40.6 BP 140/76 H Blood Pressure Location Rt brachial Position Sitting Pulse 93 Pulse Source Pulse Oximeter Pulse Oximetry (%) 95 Oxygen Delivery Method Room Air Intake Visit Reasons: Asthma Allergies Penicillins (PENICILLINS) Allergy (Severe, Verified 01/29/25 13:45) ANAPHYLAXIS simvastatin Allergy (Mild, Verified 01/29/25 13:45) weird feeling ibuprofen Adverse Reaction (Intermediate, Verified 01/29/25 13:45) stomach upset, irritates Chrohn's HPI HPI Asthma: Details: Josselin is a pleasant 54-year-old female, never smoker with underlying asthma, Crohn's disease and Ankylosing Spondylitis on Humira under the care of Dr. Gudino. She is currently on Advair 500 1 inhalation QD, Singulair, rarely using albuterol MDI with moderate control of respiratory symptoms, continues with dry cough. Initially thought to be related to seasonal allergies however continues despite antihistamines. Today she presents to review CXR results. She denies any visits to urgent care or hospitalizations related to respiratory distress since the last visit. [facility] Medical History Tubular adenoma Chronic idiopathic constipation Crohn disease Unspecified asthma, uncomplicated Dysuria Surgical History Hx of colonoscopy History of esophagogastroduodenoscopy (EGD) No pertinent past surgical history Family History Father Suicide Mother Hypertension Diabetes Paternal Grandmother Stroke Brother In good health Sister In good health Social History Housing: Other Housing Other:: mobile home Alcohol intake: current Alcohol intake frequency: does not drink Patient Tobacco Use Status: Never used Tobacco e-Cigarette/Vaping Use: Never Used Second Hand Smoke Exposure: Yes service: No Current occupational status: disabled Current occupational exposures/hazards: No Cognitive needs: No Hearing needs: No Vision needs: No Review of Systems Const Denies chills, Denies excessive sweating, Denies fever(s), Denies headache(s) and Denies night sweats Eyes Denies dry eyes, Denies irritation and Denies itchy eyes ENT Reports Normal hearing present, Denies headache(s), Denies nasal congestion, Denies nasal discharge and Denies sore throat Card Denies chest pain, Denies chest pain at rest, Denies chest pain with activity, Denies claudication, Denies leg edema, Denies dyspnea, Denies dyspnea on exertion, Denies orthopnea and Denies paroxysmal nocturnal dyspnea Resp Denies change in phlegm color, Denies chest congestion, Reports cough, Denies hemoptysis, Denies excessive phlegm production, Denies pain on inspiration, De nies pain with cough, Denies dyspnea, Denies dyspnea on exertion, Denies stridor and Denies wheezing Musc Denies myalgias Neuro Reports Normal hearing present and Denies headache(s) Endo Denies excessive sweating Kevin/Lymph Denies lymphadenopathy Aller/Immun Denies itchy eyes, Denies seasonal rhinorrhea and Denies wheezing Physical Exam Vital Signs: Last Vital Signs Pulse 93 01/29/25 13:37 BP 140/76 H 01/29/25 13:37 Pulse Ox 95 01/29/25 13:37 Oxygen Delivery Method Room Air 01/29/25 13:37 BMI result Body Mass Index 40.6 Const General: cooperative, healthy appearing, comfortable, no acute distress, well developed and alert Nutritional Appearance: obese Orientation/consciousness: patient oriented x3 Limitations: no limitations HEENT Head: Yes normal to inspection, Yes normocephalic and Yes atraumatic Ears: hearing grossly normal bilaterally and external ears normal Eyes General: appearance normal, both eyes and all related structures Eyelids: Yes eyelids normal Sclerae: sclerae normal EOM: EOMs intact bilaterally Neck Neck: Yes normal visual inspection and Yes no lymphadenopathy Lymphatic: no lymphadenopathy noted Chest Chest palpation & inspection: normal inspection of the chest Resp Effort & Inspection: normal respiratory effort, able to speak in complete sentences, no audible wheezes, no cough, no stridor, not tachypneic, no tripod positioning and no use of accessory muscles Auscultation: clear to auscultation bilaterally Cardio Jugular venous distension: no JVD Rate: regular rate Rhythm: regular rhythm Skin Other: warm, dry General skin exam: no rashes or lesions noted Neuro General: patient oriented x3 Cranial nerves: Yes Normal hearing present Cognition (Neuro): normal cognition Gait exam (Neuro): Normal gait present Extrem General: Yes normal to inspection, Yes capillary refill normal, Yes no clubbing, cyanosis or edema and Yes no pedal edema Psych Appearance: grossly normal and well kempt Speech and movement: Normal speech and movement present and Clear speech present Affect: normal affect Attitude: cooperative Thought process: Normal thought process present Thought content: Normal thought content present Insight: Good insight present (Psych) Judgement: Good judgement present (Psych) Results Reviewed Results Reviewed: [address] [address] XRay Report Signed Patient: Josselin Harrington MR#: [id number] : 1970 Acct:[id number] Age/Sex: 54 / F ADM Date: 01/13/25 Loc: [facility] Attending Dr: Brie Carrion NP Ordering Physician: Brie Carrion NP Date of Service: 01/13/25 Procedure(s): XR chest 2V Accession Number(s): [id number] cc: Layton Ward MD; Brie Carrion NP~ CLINICAL HISTORY: R05.9 - Cough, unspecified 2 view chest x-ray. Comparison: None Findings: The lungs are underexpanded with bronchovascular crowding. Mild interstitial prominence. No focal consolidation. No effusion or pneumothorax. Cardiac and mediastinal contours are within normal limits. No acute osseous abnormality Impression: Underexpanded lungs with mild interstitial prominence. No focal consolidation identified. This document has been electronically signed by: Vince Yu MD on 01/14/2025 07:09:33 Assessment & Plan Assessment & Plan (1) Asthma: Code(s): J45.909 - Unspecified asthma, uncomplicated Category: Medical (2) Cough: Code(s): R05.9 - Cough, unspecified Category: Medical (3) Allergic rhinitis: Code(s): J30.9 - Allergic rhinitis, unspecified Category: Medical Plan Encouraged patient to increase Advair to 1 inhalation BID in addition to Singulair. If cough persists may need to consider switching to Trelegy. CXR revealed prominent interstitial markings, will send for chest CT for further evaluate. All questions were answered and patient is in agreement of plan. Will follow up in 6-8 weeks or sooner if needed. Orders: Orders CT chest wo IV con Today R93.89 - Abnormal findings on diagnostic imaging of other specified body structures Medications: New montelukast 10 mg PO DAILY 30 tabs 3RF Coding Level of Care Code Est Pt Level 4 (24531) Diagnoses Asthma J45.909 Cough R05.9 Allergic rhinitis J30.9
[2025-01-29 13:37] VITALS: BP 140/76; PULSE 93; O2SAT 95; BMI 40.6
--- OUTSIDE RECORDS SUMMARY | 2025-01-29 14:03 | XMS_ITS | Encounter Summary ---
Author Organization [facility] Address [address] [place] [address] Care Team Providers Care Health Information Systems Technician Name Role Phone Bindu Sanders MD Primary Care Provider Judy Harris MD Primary Care Provider Norman Jain Primary Care Provider Judy Harris MD Primary Care Provider Judy Swanson MD Primary Care Provider Lisa iMreles MD Primary Care Provider [phone] Judy Juarez MD Primary Care Provider Lisa Mireles MD Primary Care Provider [phone] Encounter Details Date Type Department Care Team Description 09/27/2015 Retouching Operator Report Medical Records [address] [place] [id number] Abstract, Provider Social History Tobacco Use Types Packs/Day Years Used Date Smoking Tobacco: Never Assessed Sex Assigned at Date Recorded Not on file Job Start Date Occupation Industry Not on file Not on file Not on file documented as of this encounter Plan of Treatment Not on file documented as of this encounter Visit Diagnoses Not on filedocumented in this encounter Care Teams Health Information Systems Technician Relationship Specialty Start Date End Date Bindu Sanders MD PCP - General Internal Medicine 09/29/15 10/11/15 Judy Juarez MD PCP - General Internal Medicine 10/12/15 12/02/16 Radhika, Pcp PCP - General Internal Medicine 12/03/16 01/13/17 Judy Juarez MD PCP - General Internal Medicine 01/14/17 10/23/20 Judy Juarez MD PCP - General Internal Medicine 10/24/20 11/28/20 Lisa Santos MD [address] [place] [id number] PCP - General Internal Medicine 11/29/20 02/12/22 Judy Juarez MD [address] [place] [id number] PCP - General Internal Medicine 02/13/22 02/14/22 Lisa Santos MD [address] [place] [id number] PCP - General Internal Medicine 02/15/22 documented as of this encounter
== END 2025-01-29 14:35 | disposition home or self-care (01) ==
LOC: HO.HPSW 13:35
PROVIDERS: PCP Family Medicine; Visit Provider Nurse Practitioner Family
DX: J45.909 Unspecified asthma, uncomplicated (principal); R05.9 Cough, unspecified; J30.9 Allergic rhinitis, unspecified
CPT/HCPCS: 99214

== ENCOUNTER → 2025-01-29 13:35 | Outpatient (BNVA) | payer OTHER, SELFPAY | PROVIDERS: PCP Family Medicine; Visit Provider Nurse Practitioner Family | DX: K50.90 Crohn's disease, unspecified, without complications (principal); J45.909 Unspecified asthma, uncomplicated; R05.9 Cough, unspecified | CPT/HCPCS: 99212 ==

== ENCOUNTER 2025-02-03 12:51 | Outpatient (AMB) | payer OTHER, SELFPAY ==
[2025-02-03 12:52] VITALS: BMI 40.6
--- NOTE | 2025-02-03 12:52 | MHC.OFFVIS ---
Vital Signs 02/03/25 12:52 Height 5 ft Weight 208 lb BMI 40.6 Intake Visit Reasons: Bilateral knee pains Intake Note: Ms. Harrington presents with bilateral knee pains. She describes her pains as sharp in nature. She has had cortisone injections which gave her minimal relief. She has also had viscosupplementation injections which gave her fairly good relief. She has tried Tylenol and anti-inflammatory medicines which gave her minimal relief. She has failed the last 3 months of conservative treatment which has included a home exercise program, physical therapy exercises, Tylenol and anti-inflammatory medicines. She wishes to hold off on total knee replacement surgery for as long as possible. Allergies Penicillins (PENICILLINS) Allergy (Severe, Verified 02/03/25 12:52) ANAPHYLAXIS simvastatin Allergy (Mild, Verified 02/03/25 12:52) weird feeling ibuprofen Adverse Reaction (Intermediate, Verified 02/03/25 12:52) stomach upset, irritates [facility]'s Medication List - Last Reconciled 02/03/25 by Andrea Ponce MD acetaminophen ER (Tylenol 8 Hour) 1,300 mg PO Q12H PRN adalimumab (Humira(CF) Pen) 40 mg subcut Q2W albuterol sulfate 2.5 mg (3 mL) inhalation Q4-6H PRN 30 days albuterol sulfate 90 mcg/actuation 2 puffs inhalation QID PRN alendronate 70 mg PO QWEEK 28 days azelastine intranasal budesonide 32 mcg/actuation 1 spray intranasal DAILY celecoxib 100 mg PO BID PRN 30 days cholecalciferol (vitamin D3) 50 mcg PO DAILY 3 months clotrimazole 1% 1 appful vaginal BEDTIME PRN coenzyme Q10 (Co Q-10) 100 mg PO DAILY cranberry extract 250 mg PO DAILY cyanocobalamin (vitamin B-12) 1,000 mcg PO DAILY 30 days diclofenac sodium 1% (Arthritis Pain (diclofenac)) 4 grams topical QID 30 days docusate sodium 200 mg (2 x 100 mg) PO BID epinephrine (EpiPen 2-Isma) 0.3 mg (0.3 mL) IM Q10M PRN estradiol 0.01%(0.1mg/gram) Start with application daily for 2 weeks. pea-sized to urethra 3 times a week following 30 days fluticasone propion-salmeterol 500-50 mcg/dose (Advair Diskus) 1 inh inhalation Q12H fluticasone propion-salmeterol 500-50 mcg/dose inhalation lamotrigine (Lamictal) 100 mg PO DAILY loratadine 10 mg PO DAILY 90 days lorazepam 0.5 mg PO BID PRN mesalamine 1,200 mg (3 x 400 mg) PO BID montelukast 10 mg PO DAILY nystatin 5 mL PO DAILY 10 days nystatin 5 mL PO DAILY 10 days nystatin-triamcinolone 100,000-0.1 unit/g-% 1 appl topical TID olopatadine 0.7% (Pataday Once Daily Relief) 1 drp ophthalmic (eye) DAILY PRN omeprazole 20 mg PO DAILY rosuvastatin 40 mg PO DAILY tizanidine 2 mg PO TID PRN 30 days PFSH Medical History Tubular adenoma Chronic idiopathic constipation Crohn disease Unspecified asthma, uncomplicated Dysuria Surgical History Hx of colonoscopy History of esophagogastroduodenoscopy (EGD) No pertinent past surgical history Family History Father Suicide Mother Hypertension Diabetes Paternal Grandmother Stroke Brother In good health Sister In good health Social History Housing: Other Housing Other:: mobile home Alcohol intake: current Alcohol intake frequency: does not drink Patient Tobacco Use Status: Never used Tobacco e-Cigarette/Vaping Use: Never Used Second Hand Smoke Exposure: Yes service: No Current occupational status: disabled Current occupational exposures/hazards: No Cognitive needs: No Hearing needs: No Vision needs: No Physical Exam Vital Signs: BMI result Body Mass Index 40.6 Const Other: Well-nourished well-developed very friendly female awake alert and oriented x3 in no acute distress Extrem Other: Bilateral lower extremity examination shows good capillary refill, no skin lesions noted, normal sensation light touch Bilateral knee examination shows mild effusions, palpable crepitus with range of motion, pain with range of motion, no instability Results Reviewed Results Reviewed: X-rays of the patient's bilateral knees taken previously show joint space narrowing, subchondral sclerosis, no acute bony abnormalities Assessment & Plan Assessment & Plan (1) Osteoarthritis of right knee: Code(s): M17.11 - Unilateral primary osteoarthritis, right knee Category: Medical (2) Osteoarthritis of left knee: Code(s): M17.12 - Unilateral primary osteoarthritis, left knee Category: Medical Plan Ms. Harrington presents with bilateral knee pains due to osteoarthritis. I had a lengthy discussion with the patient regarding the treatment options. She wishes to hold off on surgery for as long as possible. I agree with this plan. I will see whether or not the patient's insurance company will cover a viscosupplementation injection for both of her knees. I will see her back once the injections are available. Feel free to call me at any time should questions regarding her orthopedic management arise. I spent 21 minutes in reviewing the patient's records and imaging studies, seeing the patient and documenting in the medical record. Coding Level of Care Code Est Pt Level 3 (22193) Complex EM visit Add On G2211 Diagnoses Osteoarthritis of right knee M17.11 Osteoarthritis of left knee M17.12
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
--- OUTSIDE RECORDS SUMMARY | 2025-02-03 13:20 | XMS_ITS | Encounter Summary ---
Author Organization [facility] Address [address] [place] [address] Care Team Providers Care Business Analyst Manager Name Role Phone Bindu Sanders MD Primary Care Provider Judy Harris MD Primary Care Provider Norman Jain Primary Care Provider Judy Harris MD Primary Care Provider Judy Swanson MD Primary Care Provider Lisa Mireles MD Primary Care Provider [phone] Judy Juarez MD Primary Care Provider Lisa Mireles MD Primary Care Provider [phone] Encounter Details Date Type Department Care Team Description 09/27/2015 Content Publisher Report Medical Records [address] [place] [address] Abstract, Provider Social History Tobacco Use Types Packs/Day Years Used Date Smoking Tobacco: Never Assessed Sex Assigned at Date Recorded Not on file Job Start Date Occupation Industry Not on file Not on file Not on file documented as of this encounter Plan of Treatment Not on file documented as of this encounter Visit Diagnoses Not on filedocumented in this encounter Care Teams Business Analyst Manager Relationship Specialty Start Date End Date Bindu Sanders MD PCP - General Internal Medicine 09/29/15 10/11/15 Judy Juarez MD PCP - General Internal Medicine 10/12/15 12/02/16 Radhika, Pcp PCP - General Internal Medicine 12/03/16 01/13/17 Judy Juarez MD PCP - General Internal Medicine 01/14/17 10/23/20 Judy Juarez MD PCP - General Internal Medicine 10/24/20 11/28/20 Lisa Santos MD [address] [place] [address] PCP - General Internal Medicine 11/29/20 02/12/22 Judy Juarez MD [address] [place] [address] PCP - General Internal Medicine 02/13/22 02/14/22 Lisa Santos MD [address] [place] [address] PCP - General Internal Medicine 02/15/22 documented as of this encounter
--- OUTSIDE RECORDS SUMMARY | 2025-02-03 13:20 | XMS_ITS | Patient Health Record ---
Author Organization [facility] Address [address] [place] [address] Care Team Providers Care Animal Geneticist Name Role Phone BRITNEY STOREY Primary Care Provider Unavailab Debo Seymour Unavailable [phone] Allergies Allergen (clinical drug ingredient) Drug/Non Drug [...] at b edtime Vaginal EVERY NIGHT X 3; Duration: 3 days 06/03/2024 Active Tylenol 1 tab Oral; Duration : 14 days Active LORazepam 0.5 MG 1 tablet at bedtime as needed Orally Once a day 06/03/2024 Active Humira Pen 40 MG/0.4ML Subcutaneous; Duration: 28 Active Rosuvastatin Calcium 40 MG Oral; Duration: 90 Active lamoTRIgine 100 MG Oral; Duration: 30 Active Mesalamine 400 MG 1 capsule Oral Twice a day; Duration: 20 days Active Clotrimazole-Betamethasone 1-0.05 % 1 application to affected area Externally Twice a day; Duration: 14 days 05/29/2023 Active CoQ-10 50 MG as directed Orally Active Omeprazole 20 MG 1 capsule Orally Onc e a day Active Docusate Sodium 100 MG 1 capsule Oral Tw ice a day; Duration: 90 days Active Vitamin D3 50 MCG (1999) TAKE 1 TABLET BY MOUTH ONCE DAILY Oral; Duration: 90 Active Vitamin B-12 1000 MCG TAKE 1 TABLET BY M OUTH ONCE DAILY Oral; Duration: 90 Active Montelukast Sodium 10 MG Oral; Duration: 30 Active AZO Cranberry 250-30 MG as directed Orally Active Loratadine 10 MG Oral; Duration: 90 Active Budesonide 32 MCG/ACT 2 sprays (1 spray in each nostril) Nasally Once a day; Duration: 30 day(s) Active Nystatin 263151 UNIT/GM 1 application Ex ternally Twice a day Active Azelastine HCl 137 MCG/SPRAY Nasal; Duration: 25 Days Act sadiq Advair Diskus 500-50 MCG/ACT 1 puff Inhalation [...] Status W/U Status Risk Notes Problem Menopause (401409866) Menopausal and female climacteric states (N95.1) Active confirmed Problem Postmenopausal atrophic vaginitis (06702345) Postmenopausal atrophic vaginitis (N95.2) Active confirmed Problem Polycystic ovary syndrome (disorder) (304920093) Polycystic ovarian syndrome (E28.2) Active confirmed Problem Morbid obesity (disorder) (071734828) Morbid (severe) obesity due to excess calories (E66.01) Active confirmed Problem Hyperlipidemia (56533932) Hyperlipidemia, unspecified (E78.5) Active confirmed Problem Recurrent depression (606582173) Other recurrent depressive disorders (F33.8) Active confirmed Problem Anxiety disorder (853466651) Anxiety disorder, unspecified (F41.9) Active confirmed Problem Vitreous opacities (751179176) Other vitreous opacities, unspecified eye (H43.399) Active confirmed Problem Asthma (287850847) Other asthma (J45.998) Active confirmed Problem Crohn's disease (25465082) Crohn's disease, unspecified, with unspecified complications (K50.919) Active confirmed Problem Fatty liver (933736136) Fatty (change of) liver, not elsewhere classified (K76.0) Active confirmed Problem Ankylosing spondylitis (5511961) Ankylosing spondylitis of unspecified sites in spine (M45.9) Active confirmed Problem Gastroesophageal reflux disease with esophagitis (disorder) (484311795) Gastro-esophageal reflux disease with esophagitis, without bleeding (K21.00) Active confirmed Vital Signs Temperature 97.4 degrees Fahrenheit 06/03/2024 Blood pressure diastolic 84 mm Hg 06/03/2024 Height 59 in 06/03/2024 Blood pressure systolic 124 mm Hg 06/03/2024 Weight 193 lbs 06/03/2024 BMI 38.98 kg/m2 06/03/2024 Encounters Encounter Location Date Provider Diagnosis [place] [address] [employer] [address] [address] 06/19/2024 Debo Patel [address] [address] 06/03/2024 Debo Patel Encounter for gynecological examination (general) (routine) without abnormal findings Z01.419 ; Encounter for screening mammogram for malignant neoplasm of breast Z12.31 and Acute candidiasis of vulva and vagina B37.31 [address] [address] 07/30/2024 Debo Patel Assessments Encounter Date Diagnosis [...] head, 06/10/2025 02:40:00 PM, [address] [facility] [facility] [address], [address], [place], [address], Insurance Providers Payer Name Payer Address Payer Phone Subscriber Number Group Number Insured Name Patient Relationship to Insured Coverage Start Date Coverage End Date [place] [id number] JAIME SÁNCHEZ Self - patient is the [...]
--- OUTSIDE RECORDS SUMMARY | 2025-02-03 13:20 | XMS_ITS | Patient Health Record ---
Author Organization [facility] Address [address] [place] [address] Care Team Providers Care Nuclear Equipment Operator Name Role Phone Bindu Sanders MD Primary Care Provider Boris Carbajal Jr Unavailable Allergies Allergen (clinical drug ingredient) Drug/Non Drug Allergy documented on EMR Reaction Allergy Type Onset Date Status PCN (uncoded) Unknown Allergy Active Reason For Referral No Information Medications Medication SIG (Take, Route, Fr equency, Duration) Notes Start Date End Date Status Omeprazole 08/05/2024 08/05/2024 Active Ibuprofen Active LaMICtal Active Metoprolol Tartrate Active Social History Tobacco Use: Social History Observation Description Date Details (start date - stop date) Never Smoker NA - NA Tobacco Use/Smoking Question Answer Notes Patient is a nonsmoker Alcohol Screen Question Answer Notes Did you have a drink containing alcohol in the p ast year? No Points 0 Interpretation Negative Section Notes: Tobacco and alcohol use are negative. Problems Problem Type SNOMED Code ICD Code Onset Dates Problem Status W/U Status Risk Notes Problem Nonspecific abnormal results of liver function study (794.8) Active confirmed Plan Of Treatment Pending Test Test Name Order Date LIVER PROFILE 09/12/2011 IRON + IBC (FE) 09/12/2011 FERRITIN 09/12/2011 CBC w DIFF 09/12/2011 PROTHROMBIN TIME (PT, INR) 09/12/2011 MITOCHONDRIAL AB 09/12/2011 SMOOTH MUSCLE ANTIBODIES 09/12/2011 FLUOR. ANTINUCLEAR AB SCREEN ([place]) 03/2012 Insurance Providers Payer Name Payer Address Payer Phone Subscriber Number Group Number Insured Name Patient Relationship to Insured Coverage Start Date Coverage End Date MEDICARE OF [address] [id number] Josselin Harrington Self - patient is the insured MEDICAID OF [facility] [address] [place] [address] [phone] [id number] Josselin Harrington Self - patient is the insured Medical (General) History Medical History History ICD Code back and hip pain following a fall hypertension depression anxiety esophageal reflux elevated lipids low vitamin D level
--- OUTSIDE RECORDS SUMMARY | 2025-02-03 13:20 | XMS_ITS | Clinical Summary ---
Author Organization [facility] [address] [place] [address] [place] [id number] Phone Care Team Providers Care Cobbler Sole Name Role Phone Lisa Santos MD Primary Care Provider [phone] Allergies Active Allergy Reactions Criticality Noted Date [...] time each day. 2 Active sodium chloride ([place] Saline) 0.65 % nasal drops 3 Drops by Each Nare route 3 times daily. 1 Active tiZANidine (ZANAFLEX) 2 mg capsule Take 1 capsule by mouth at bedtime as needed for Muscle spasms. 1 Active coenzyme Q-10 10 mg capsule Take by mouth. 7 Active Active Problems Problem Noted Date Diagnosed Date Ankylosing spondylitis ([facility] V24, [facility] V28 ) 08/07/2024 Overview (08/07/2024): Onset ~ : SI joint fusion, fused LS and T spine Humira started December 2015- held in the summer due to dental problems Episode of Iritis - 05/23 Hepatic steatosis 08/07/2024 Morbid obesity with BMI of 4 0.0-44.9, adult ([facility] V24, [facility] V28) 08/07/2024 Chronic rhinitis 09/23/2019 Vitamin B12 deficiency 05/20/2019 Snoring 01/05/2019 Overview (08/07/2024): 12/2018 Home Sleep Study did not reveal sleep apnea or nocturnal hypoxia. 04/2019 Diagnostic polysomnogram did not reveal ELIJAH or nocturnal hypoxia. Crohn's disease of large int estine without complication ([facility] V24, [facility] V28) 08/11/2018 RLS (restless legs syndrome) 05/28/2018 Thyroid nodule 12/10/2017 Fracture of lumbar spine ([facility] V24, [facility] V 28) 08/05/2017 Overview (08/07/2024): Macario fracture Sternal fracture 08/05/2017 Fracture of rib of left side 08/05/2017 Overview (08/07/2024): Left 7th and 8th fracture Lung nodules 05/05/2016 Overview (08/07/2024): on imaging at [place], followed by Dr. Gaytan. CAT scan 04/23/17: [...] ascending colitis on bxy ESOPHAGOGASTRODUODENOSCOPY 09/12/2015 PROCEDURE: KS ESOPHAGOGASTRODUODENOSCOPY TRANSORAL DIAGNOSTIC; COMMENT: Normal with nl duodenal, antral and GE junction bxys BREAST BIOPSY 06/25/2018 Left PROCEDURE: BX BREAST; PERC NEEDLE CORE W/IMAG GUID; COMMENT: BENIGN FIBROADENOMATOUS CHANGES. OTHER SURGICAL HISTORY 02/2021 PROCEDURE: MAMMOGRAM, SCREENING, BOTH BREASTS Medical History Medical History Date Comments Depression with anxiety 10/06/2015 DX:Depre ssion with anxiety; COMMENT: [facility] - therapist Khushi triyohana to see her once in a week Hypercholesteremia 10/06/2015 DX:Hyperchole steremia Asthma 10/06/2015 DX:Asthma; COMME NT: Dr. Gaytan Ulcerative colitis ([facility] V24, [facility] V28) DX:Ulcerative colitis (HCC); COMMENT: Dr. Baez Ankylosing spondylitis ([facility] V24, [facility] V28) DX:Ankylosing spondylitis (H CC); COMMENT: Dr. Mckay Hepatic steatosis DX:Hepatic sher atosis Pelvic pain 11/24/2015 DX:Pelvic pain Iron deficiency anemia 11/25/2015 DX:Iron d eficiency anemia Vitamin D deficiency 11/25/2015 DX:Vitamin D deficiency Disc disease, degenerative, cervical 12/13/2015 DX:Disc disease, degenerative, cervical Lung nodules 05/2016 DX:Lung nodules; COMMENT: on imaging at [place], followed by Dr. Gaytan. Fracture of rib of left side 08/2017 DX: Fracture of rib of left side; COMMENT: Left 7th and 8th fracture Fracture of lumbar spine (CM S/HCC V24, [facility] V28) 08/2017 DX:Fracture of lumbar spine (HCC); COMMENT: Macario fracture Sternal fracture 08/2017 DX:Sternal frac ture Crohn's disease (CMS/HCC V24 , [facility] V28) DX:Crohn's disease (HCC) Family History Medical [...] is recommended in 1 year. MAMMO LOCATION: [facility], [address] [place] [address], [phone], . -------- FINAL REPORT -------- Dictated By: Roselyn Martinez Dictated Date: 09/03/2024 08:19 ET Assigned Physician: Roselyn Martinez Reviewed and Electronically Signed By: Roselyn Martinez Signed Date: 09/03/2024 08:24 ET Workstation ID: [id number] Transcribed By: Self Edit Transcribed Date: 09/03/2024 08:19 ET Narrative 09/03/2024 8:24 AM EST EXAM: Screening Mammogram CLINICAL: 54 years old, Female, routine annual exam. History of a benign left core biopsy 06/25/2018. [...] is recommended in 1 year. MAMMO LOCATION: [facility], [address] [place] [address], [phone], . -------- FINAL REPORT -------- Dictated By: Roselyn Martinez Dictated Date: 09/03/2024 08:19 ET Assigned Physician: Roselyn Martinez Reviewed and Electronically Signed By: Roselyn Martinez Signed Date: 09/03/2024 08:24 ET Workstation ID: [id number] Transcribed By: Self Edit Transcribed Date: 09/03/2024 08:19 ET Result [facility] Lisa Santos MD IMG BI PROCEDURES Final Result * Annual BMP Blood Test (12/06/2020) [facility] Annual BMP Blood Test abstracted Result [facility] Provider HEALTH MAINTENANCE Final Result * Hepatitis C Screening (12/06/2020) [facility] Hepatitis C Screening abstracted Result [facility] Provider HEALTH MAINTENANCE Final Result * (ABNORMAL) Lipid panel (08/21/2019) [facility] LDL/HDL Ratio 4 0 - 4 Triglycerides 186(A) 0 - 150 mg/dL Cholesterol 198 0 - 200 mg/dL HDL 56 >=40 mg/dL LDL Cholesterol 105(A) 0 - 100 mg/dL Blood Venous blood specimen / Unknown Result [facility] Provider LAB BLOOD ORDERABLES Micaela l Result * HIV Screening (01/10/2018) [facility] HIV Screening abstracted Historical Provider HEALTH MAINTENANCE Final Result * Cervical Cancer Screening: HPV (12/12/2015) [facility] Cervical Cancer Screening: HPV abstracted, negative [facility] Provider HEALTH MAINTENANCE Final Result * Colonoscopy (09/12/2015) [facility] Colonoscopy no interpretation , abstracted Anatomical Region Laterality Modality Other [facility] Provider HEALTH MAINTENANCE Final Result from Last 3 Months or Most Recently Relevant to Health Maintenance Insurance [employer] Member Subscriber Plan / Payer (Ef fective 2016-Present) Name:Josselin Harrington Relation to Subscriber:Self Name:Josselin Harrington Payer ID:[id number] Group ID:[id number] Type:Not on file Address: [place] [address] [address] [id number] Care Teams Cobbler Sole Relationship Specialty Start Date End Date Lisa Santos MD [address] [place] [address] PCP - General Internal Medicine 02/15/22
== END 2025-02-03 13:10 | disposition home or self-care (01) ==
LOC: HO.HOS 12:51
PROVIDERS: PCP Family Medicine; Visit Provider Orthopaedic Surgery
DX: M17.0 Bilateral primary osteoarthritis of knee (principal)
CPT/HCPCS: 99213; G2211

== ENCOUNTER → 2025-02-03 12:51 | Outpatient (BNVA) | payer OTHER, SELFPAY | PROVIDERS: PCP Family Medicine; Visit Provider Orthopaedic Surgery | DX: M25.561 Pain in right knee (principal); M25.562 Pain in left knee; M17.11 Unilateral primary osteoarthritis, right knee; M17.12 Unilateral primary osteoarthritis, left knee | CPT/HCPCS: 99212 ==

== ENCOUNTER → 2025-02-21 09:02 | Outpatient (BNV) | payer OTHER, SELFPAY | PROVIDERS: PCP Family Medicine; Visit Provider Radiology Vascular & Interventional Radiology | DX: R91.1 Solitary pulmonary nodule (principal); R06.02 Shortness of breath | CPT/HCPCS: 71046; 71250 ==

== ENCOUNTER 2025-02-21 09:29 | Emergency (ER) | payer OTHER, SELFPAY ==
--- NOTE | ~2025-02-21 | XR_ITS ---
CLINICAL HISTORY: sob 2 views chest Comparison: CR - XR CHEST 2V - 01/13/25 13:29 EDT Findings: Cardiac and mediastinal contours are normal. Mild interstitial prominence with scattered peribronchial thickening. No focal consolidation. No effusion. No pneumothorax. No acute osseous finding. Impression: Mild interstitial prominence with scattered peribronchial thickening. No definite focal consolidation. This document has been electronically signed by: Vince Yu MD on 02/21/2025 10:33:23
--- NOTE | ~2025-02-21 | CT_ITS ---
CLINICAL HISTORY: SOB, cough CT CHEST WITHOUT CONTRAST Comparison: CR - XR CHEST 2V - 02/21/25 10:02 EDT Findings: The heart size is normal. Scattered calcific plaque in the ectatic thoracic aorta. No aneurysmal dilatation. The visualized thyroid gland is heterogeneous, possible multinodular thyroid. No mediastinal lymphadenopathy. Multiple patchy airspace opacities in the lingula. No consolidation. No pleural effusion or pneumothorax. There is a 5 mm noncalcified nodule in the left lower lobe. The visualized upper abdomen is unremarkable. The thoracic spine is kyphotic. There is diffuse syndesmophytosis. IMPRESSION: 1. Mild multifocal patchy infiltrates in the lingula. 2. No segmental or lobar pneumonia. 3. Nonspecific 5 mm nodule in the left lower lobe. Please see recommendations below. ACR Fleischner Society recommendations (MacMahon, et al. Radiology 2017; 284(1): 228-43) suggest the following: For patients with low risk of lung cancer, no need for follow-up. For patients with high risk of lung cancer, generally no need for follow-up. An optional chest CT at 12 months could be performed if there is high index of suspicion. This document has been electronically signed by: Shonda Rivera DO on 02/21/2025 14:02:13
[2025-02-21 09:37] VITALS: BP 146/98; PULSE 86; RESP 20; TEMP 36.4; O2SAT 96; BMI 39.5
[2025-02-21 10:24] LABS: MANUAL DIFF FLAG NO
[2025-02-21 10:26] LABS: Hematocrit 39.2 % (37.0-47.0); Hemoglobin 13.4 g/dl (12.0-16.0); Imm Gran Abs Auto 0.03 X10*3/uL (0.00-0.03); Imm Gran Pct Auto 0.4 % (0.0-0.4); Lymphocytes Absolute Auto 1.8 X10*3/uL (1.2-4.9); Mean Corpuscular HGB Conc 34.2 g/dl (31.0-35.0); Mean Corpuscular Hemoglobin 28.1 pg (27.0-33.0); Mean Corpuscular Volume 82.2 fL (80.0-98.0); NRBC Abs Auto 0.000 X10*3/uL (0.0-0.012); NRBC Pct Auto 0.0 /100WBC (0.0-0.2); Platelet Count 280 X10*3/uL (160-400); Red Blood Count 4.77 X10*6/uL (4.20-5.50); White Blood Count 7.6 X10*3/uL (4.8-10.8)
[2025-02-21 10:41] VITALS: BP 135/85; PULSE 87; RESP 18; O2SAT 96
[2025-02-21 10:42] LABS: Alanine Aminotransferase 52 U/L (0-31); Albumin Level 4.3 g/dL (3.5-5.0); Alkaline Phosphatase 77 U/L (39-117); Anion Gap 13 (12-20); Aspartate Amino Transferase 66 U/L (5-31); Blood Urea Nitrogen 6 mg/dL (9-16); Calcium 9.3 mg/dL (8.4-10.2); Carbon Dioxide 25 mmol/L (22-29); Chloride 108 mmol/L (96-108); Creatinine Clr Calc Pharmacy 116.9; Estimated Glomerular Filt Rate > 60; Potassium 4.2 mmol/L (3.3-5.1); Sodium 142 mmol/L (135-145); Total Protein 7.0 g/dL (6.5-8.0)
[2025-02-21 10:48] LABS: B Type Natriuretic Peptide 19 pg/mL (<100)
--- NOTE | 2025-02-21 11:00 | ED_ITS ---
HPI - General Adult General Chief complaint: Dyspnea Stated complaint: Lung Issues Time Seen by Provider: 02/21/25 11:00 Source: patient Mode of arrival: ambulatory Limitations: no limitations History of Present Illness ED Provider: Leslee Boateng PA-C HPI narrative: Patient is a 51 year old female with past medical history of asthma for which she follows with pulmonolgy, rheumatoid arthritis for which she follows with rheumatology, HLD, ankylosing spondylitis, Crohn disease, psoriasis, diverticulitis, GERD, and osteoporosis presents to the ER on 02/21 with worsening asthmatic symptoms for 2 weeks and right knee swelling for 3 weeks. She reports increasing chest tightness, dry cough, and wheezing for 2 weeks with intermittent pleuritic chest pain. She has been consistent with her daily asthma therapy and uses her rescue inhaler as needed with mild benefit. She follows with pulmonology, and planned for CT scan of her lungs following abnormal X-Ray for next month, but her worsening symptoms prompted her to seek care in the ER sooner. In terms of her knee pain, she states she has been inconsistent with her Humira injections for her rheumatoid arthritis (scheduled twice monthly, last injection was January 18). She is able to weight bear, though painful, and has had full ROM of her knee since the swelling started. She has never had steroid injections in her right knee. She recalls no inciting injury. She has no history of gout or pseudogout. She denies fevers, chills, malaise, body aches, chest pain, abdominal pain, nausea, vomiting, diarrhea, genitourinary complaints, or any other symptoms. Relieving factors: none Exacerbating factors: none Associated symptoms: shortness of breath Related Data Home Medications ?Medication ?Instructions ?Recorded ?Confirmed lorazepam 0.5 mg tablet 0.5 mg PO BID PRN anxiety 02/03/25 cranberry extract 250 mg capsule 250 mg PO DAILY 03/3102/03/25 adalimumab 40 mg/0.4 mL 40 mg subcut Q2W 10/24/21 subcutaneous pen kit (Humira(CF) Pen) budesonide 32 mcg/actuation nasal 1 spray intranasal D AILY 05/01/23 02/03/25 spray clotrimazole 1 % vaginal cream 1 appful vaginal BEDTIM E PRN 12/18/23 02/03/25 azelastine 137 mcg (0.1 %) nasal intranasal 05/13/24 0 02/03/25 spray fluticasone 500 mcg-salmeterol 50 inhalation 05/13/24 02/03/25 mcg/dose blistr powdr for inhalation olopatadine 0.7 % eye drops 1 drp ophthalmic (eye) JESSICA LY PRN 11/09/24 02/03/25 (Pataday Once Daily Relief) acetaminophen 650 mg 1,300 mg PO Q12H PRN 5 02/03/25 tablet,extended release (Tylenol 8 Hour) coenzyme Q10 50 mg capsule (Co 100 mg PO DAILY 5 02/03/25 Q-10) omeprazole 20 mg tablet,delayed 20 mg PO DAILY 5 02/03/25 release Previous Rx's ?Medication ?Instructions ?Recorded albuterol sulfate 2.5 mg/3 mL 2.5 mg (3 mL) inhalation Q4-6H PRN 05/23/21 (0.083 %) solution for nebulization shortness of breat h or wheezing 30 days #180 mL epinephrine 0.3 mg/0.3 mL 0.3 mg (0.3 mL) IM Q10M PRN 05/23/21 injection, auto-injector (EpiPen anaphylaxis #2 ea 2-Isma) loratadine 10 mg tablet 10 mg PO DAILY 90 days #90 t abs 03/06/22 tizanidine 2 mg capsule 2 mg PO TID PRN muscle spasm 30 03/06/22 days #90 caps nystatin 100,000 unit/mL oral 5 ml PO DAILY 10 days #5 0 mL 09/25/22 suspension alendronate 70 mg tablet 70 mg PO QWEEK 28 days #4 ta bs 10/09/23 diclofenac sodium 1 % topical gel 4 g topical QID 30 d ays #200 grams 11/05/23 (Arthritis Pain (diclofenac)) cholecalciferol (vitamin D3) 50 50 mcg PO DAILY 3 no hs #90 tabs 04/10/24 mcg (2,000 unit) tablet lamotrigine 100 mg tablet 100 mg PO DAILY #30 tabs 01/26 (Lamictal) nystatin-triamcinolone 100,000 1 appl topical TID #30 grams 05/11/24 unit/g-0.1 % topical cream estradiol 0.01% (0.1 mg/gram) See Rx Instructions .Rou te 3XW 30 09/29/24 vaginal cream days #42.5 grams cyanocobalamin (vitamin B-12) 1,000 mcg PO DAILY 30 da ys #90 tabs 10/07/24 1,000 mcg tablet nystatin 100,000 unit/mL oral 5 ml PO DAILY 10 days #5 0 mL 11/11/24 suspension albuterol sulfate 90 mcg/actuation 2 puff inhalation Q ID PRN wheezing 12/02/24 aerosol inhaler #6.7 grams docusate sodium 100 mg capsule 200 mg (2 x 100 mg) PO BID #360 12/02/24 caps fluticasone 500 mcg-salmeterol 50 1 inh inhalation Q12 H #60 ea 12/02/24 mcg/dose blistr powdr for inhalation (Advair Diskus) mesalamine 400 mg capsule (with 1,200 mg (3 x 400 mg) PO BID #120 12/02/24 delayed release tablets inside) ea celecoxib 100 mg capsule 100 mg PO BID PRN pain 30 da ys #60 01/14/25 caps rosuvastatin 40 mg tablet 40 mg PO DAILY #90 tabs 01/03 02/26 montelukast 10 mg tablet 10 mg PO DAILY #30 tabs 01/04 02/26 doxycycline hyclate 100 mg tablet 100 mg PO BID 7 days #14 tabs 02/21/25 prednisone 20 mg tablet 20 mg PO DAILY 7 days #7 tab s 02/21/25 Allergies Allergy/AdvReac Type Severity Reaction Status Date / Time Penicillins (PENICILLINS) Allergy Severe ANAPHYLAXIS Verified 02/21/25 09:37 simvastatin Allergy Mild weird Verified 02/21/25 09:37 feeling ibuprofen AdvReac Intermediate stomach Verified 02/21/25 09:37 upset, irritates Jenniferpan's Review of Systems 2 Constitutional: Constitutional: Reports no additional constitutional complaints, Denies chills, Denies fever(s) and Denies night sweats Eyes: Eyes: Reports no additional eye complaints, Denies blurry vision, Denies change in vision, Denies diplopia, Denies eye discharge, Denies loss of vision and Denies eye pain ENT: Denies dizziness Cardiovascular: Cardiovascular: Reports no additional cardiovascular complaints, Denies chest pain, Denies lightheadedness, Denies Loss of Consciousness and Reports dyspnea Respiratory: Respiratory: Reports as per HPI, Reports no additional respiratory complaints, Reports chest congestion, Reports cough and Reports dyspnea Gastrointestinal: Gastrointestinal: Reports no additional gastrointestinal complaints, Denies abdominal pain, Denies melena, Denies hematochezia, Denies change in bowel habits and Denies change in stool character Genitourinary: Genitourinary: Denies hematuria, Denies urinary frequency, Denies dysuria, Denies urinary incontinence, Denies urinary hesitancy and Denies urinary urgency Musculoskeletal: Musculoskeletal: Reports no additional musculoskeletal complaints, Denies numbness and Denies tingling Comments: right knee pain - right knee swelling Neurologic: Denies dizziness, Denies loss of vision, Denies numbness and Denies tingling Psychiatric: Psychiatric: Reports no additional psychiatric complaints Endocrine: Endocrine: Reports no additional endocrine complaints Hematologic/Lymphatic: Hematologic/Lymphatic: Reports no additional hematologic/lymphatic complaints Allergic/Immunologic: Allergic/Immunologic: Reports no additional allergic/immunologic complaints PENDING SALE TO [facility] Past Medical History Attestation statement: The following information was validated with the patient. Source: old records reviewed and nursing notes reviewed Medical History Tubular adenoma Chronic idiopathic constipation Crohn disease Unspecified asthma, uncomplicated Dysuria Surgical History Hx of colonoscopy History of esophagogastroduodenoscopy (EGD) No pertinent past surgical history Family History Family History Father Suicide Mother Hypertension Diabetes Paternal Grandmother Stroke Brother In good health Sister In good health Social History Social History Housing: Other Housing Other:: mobile home Alcohol intake: current Alcohol intake frequency: does not drink Patient Tobacco Use Status: Never used Tobacco Smoked in Last 30 Days: No e-Cigarette/Vaping Use: Never Used Second Hand Smoke Exposure: Yes Advance Directives: Yes Advance Directives Information Provided: No Advance Directives on File: No Do you have a plan to hurt others: No Plan service: No Current occupational status: disabled Current occupational exposures/hazards: No Cognitive needs: No Hearing needs: No Vision needs: No Physical Exam ED Vital Signs: Vital Signs - 24 hr 02/21/25 09:37 02/21/25 10:41 02/21/25 11:54 Temperature 97.6 F Pulse Rate 86 87 81 Respiratory Rate 20 18 22 H Blood Pressure 146/98 H 135/85 Pulse Oximetry 96 96 Oxygen Delivery Method Room Air Room Air 02/21/25 14:08 02/21/25 14:53 Temperature 97.9 F 97.9 F Pulse Rate 81 81 Respiratory Rate 18 18 Blood Pressure 136/81 136/81 Pulse Oximetry 97 97 Oxygen Delivery Method Room Air Room Air BMI result Body Mass Index 39.5 Const General: cooperative, no acute distress, alert and awake Nutritional Appearance: well nourished Orientation/consciousness: patient oriented x3 HENMT Head: Yes normal to inspection and Yes atraumatic Ears: hearing grossly normal bilaterally and external ears normal General nose exam: Normal external nose present, no nasal discharge noted and no epistaxis Face and sinus: Yes normal facial exam, No abrasion and No laceration Mouth: Normal oral and palatal mucosa present, no drooling and no muffled voice Eyes General: appearance normal, both eyes and all related structures Periorbital: periorbital findings normal Eyelids: Yes eyelids normal Conjunctivae: conjunctivae normal Pupils: Equal, round and reactive pupils present EOM: EOMs intact bilaterally Neck Neck: Yes normal visual inspection, Yes full ROM and Yes no lymphadenopathy Resp Effort & Inspection: normal respiratory effort and able to speak in complete sentences Auscultation: clear to auscultation bilaterally Neuro General: patient oriented x3, moves all extremities and CN's II-XI intact bilaterally Cranial nerves: Yes Equal, round and reactive pupils present Cognition (Neuro): normal cognition Extrem General: Yes full ROM and Yes capillary refill normal Right lower extremity: knee Details: tenderness, swelling and normal ROM; no lacerations and no crepitus Psych Appearance: grossly normal Mental Status: mental status grossly normal Affect: normal affect Attitude: cooperative Thought process: Normal thought process present Thought content: Normal thought content present Insight: Good insight present (Psych) Medications Administered Discontinued Medications Generic Name Dose Route Start Last Admin Trade Name Freq PRN Reason Stop Dose Admin Levalbuterol HCl 1.25 mg 02/21/25 11:54 02/21/25 11:58 Levalbuterol Hcl 1.25 Mg/3 Ml Vial.Neb INHALE 02/21/25 11:55 1.25 mg ONCE ONE Administration Methylprednisolone Sodium Succinate 60 mg 02/21/25 11:38 02/21/25 14:54 Methylprednisolone Sod Succ 125 Mg/2 Ml Vial IM 02/21/25 11:39 Not Given ONCE ONE Medical Decision Making Medical Decision Making [facility] Narrative: Patient is a 55 year old assigned female at with a history of asthma for which she follows with pulmonolgy, rheumatoid arthritis for which she follows with rheumatology, HLD, ankylosing spondylitis, Crohn disease, psoriasis, diverticulitis, GERD, and osteoporosis presenting to the emergency department today with right knee pain and shortness of breath. Patient's physical exam was unremarkable. Patient's blood work was unremarkable. Patient's chest x-ray showed no acute process. Patient's chest CT showed mild multifocal patchy infiltrates in the lingula. I explained my physical exam findings as well as all test results to the patient. I answered all questions asked by the patient. I had an extensive conversation with the patient around antibiotics for her pneumonia and together, through shared decision making, we determined doxycycline would be the best option for her. I stressed the importance of the patient taking her medication as directed (either prescribed or as the over the counter packaging recommends). I stressed the importance of the patient following up with her primary care provider, dry cans back tender, and her freight broker agent. I stressed the importance of the patient returning to the emergency department immediately if her symptoms were to worsen or if she were to develop any dizziness, shortness of breath, difficulty breathing, chest pain, blurry vision, loss of vision, nausea, vomiting, abdominal pain, fever, chills, back pain, or any other complaints. Patient verbalized agreement and understanding with this treatment plan and discharge. Differential Diagnosis Differential Diagnoses: The differential diagnosis associated with the presentation includes Shortness of breath PNA Chronic right knee pain Asthma exacerbation Admission/Observation Consideration of admission/observation: Escalation of care including admission/observation considered Patient would have been admitted to the hospital had her work up had any findings where hospital admission was appropriate and her clinical presentation warranted hospital admission. Lab Data [facility] Lab Attestation statement: I reviewed the patient's lab results. My interpretation of these results are in the [facility] Rationale portion of this note. 02/21/25 10:20 02/21/25 10:20 Labs: Lab Results 02/21/25 Range/Units 10:20 WBC 7.6 (4.8-10.8) X10*3/uL RBC 4.77 (4.20-5.50) X10*6/uL Hgb 13.4 (12.0-16.0) g/dl Hct 39.2 (37.0-47.0) % MCV 82.2 (80.0-98.0) fL MCH 28.1 (27.0-33.0) pg MCHC 34.2 (31.0-35.0) g/dl RDW 14.1 (11.0-16.0) % Plt Count 280 (160-400) X10*3/uL MPV 9.3 L (9.4-12.3) fL Immature Gran % (Auto) 0.4 (0.0-0.4) % Neut % (Auto) 66.0 (45-73) % Lymph % (Auto) 23.4 (20-40) % [place] % (Auto) 7.5 (2-11) % Eos % (Auto) 2.0 (0-4) % Baso % (Auto) 0.7 (0-2) % Lymph # (Auto) 1.8 (1.2-4.9) X10*3/uL [place] # (Auto) 0.6 (0.1-1.2) X10*3/uL Eos # (Auto) 0.2 (0.0-0.4) X10*3/uL Baso # (Auto) 0.1 (0.0-0.2) X10*3/uL Abs Immat Gran (auto) 0.03 (0.00-0.03) X10*3/uL Absolute Neuts (auto) 5.1 (2.0-8.3) x10*3/uL Absolute Nucleated RBC 0.000 (0.0-0.012) X10*3/uL Nucleated RBC % (auto) 0.0 (0.0-0.2) /100WBC Sodium 142 (135-145) mmol/L Potassium 4.2 (3.3-5.1) mmol/L Chloride 108 (96-108) mmol/L Carbon Dioxide 25 (22-29) mmol/L Anion Gap 13 (12-20) BUN 6 L (9-16) mg/dL Creatinine 0.64 (0.5-1.4) mg/dL Estim Creat Clear Calc 116.9 Estimated GFR > 60 Random Glucose 154 H (60-115) mg/dL Calcium 9.3 (8.4-10.2) mg/dL Total Bilirubin 0.5 (0.0-1.0) mg/dL AST 66 H (5-31) U/L ALT 52 H (0-31) U/L Alkaline Phosphatase 77 (39-117) U/L B-Natriuretic Peptide 19 (<100) pg/mL Total Protein 7.0 (6.5-8.0) g/dL Albumin 4.3 (3.5-5.0) g/dL Influenza Type A (PCR) NEGATIVE (Negative) Influenza Type B (PCR) NEGATIVE (Negative) RSV RNA Qual (PCR) NEGATIVE (Negative) SARS-CoV-2 RNA (RT-PCR) NEGATIVE (Negative) Independent Interpretation I performed an independent interpretation of an: Plain X-Ray and CT Scan Interpretation: My interpretation is in agreement with the radiologist's impression of these imaging studies. L CLINICAL HISTORY: sob 2 views chest Comparison: CR - XR CHEST 2V - 01/13/25 13:29 EDT Findings: Cardiac and mediastinal contours are normal. Mild interstitial prominence with scattered peribronchial thickening. No focal consolidation. No effusion. No pneumothorax. No acute osseous finding. Impression: Mild interstitial prominence with scattered peribronchial thickening. No definite focal consolidation. This document has been electronically signed by: Vince Yu MD on 02/21/2025 10:33:23 Dictated By: Vince Yu MD Signed By: Electronically signed by Vince Yu MD 02/21/25 1034 Report Number: [id number]: Total DLP = 271.00 mGy-cm CLINICAL HISTORY: SOB, cough CT CHEST WITHOUT CONTRAST Comparison: CR - XR CHEST 2V - 02/21/25 10:02 EDT Findings: The heart size is normal. Scattered calcific plaque in the ectatic thoracic aorta. No aneurysmal dilatation. The visualized thyroid gland is heterogeneous, possible multinodular thyroid. No mediastinal lymphadenopathy. Multiple patchy airspace opacities in the lingula. No consolidation. No pleural effusion or pneumothorax. There is a 5 mm noncalcified nodule in the left lower lobe. The visualized upper abdomen is unremarkable. The thoracic spine is kyphotic. There is diffuse syndesmophytosis. IMPRESSION: 1. Mild multifocal patchy infiltrates in the lingula. 2. No segmental or lobar pneumonia. 3. Nonspecific 5 mm nodule in the left lower lobe. Please see recommendations below. ACR Fleischner Society recommendations (MacMahon, et al. Radiology 2017; 284(1): 228-43) suggest the following: For patients with low risk of lung cancer, no need for follow-up. For patients with high risk of lung cancer, generally no need for follow-up. An optional chest CT at 12 months could be performed if there is high index of suspicion. This document has been electronically signed by: Shonda Rivera DO on 02/21/2025 14:02:13 Dictated By: Shonda Rivera MD Signed By: Electronically signed by Shonda Rivera MD 02/21/25 1793 Radiology Impression Discussion of test interpretation with radiology: I have reviewed the radiologist's reading. Prescription Management I considered prescription management with: Antibiotic (patient prescribed antibiotic for PNA) Discharge Plan Discharge Clinical Impression: Pneumonia, Asthma exacerbation, Chronic pain of right knee Patient Disposition: Home, Self-Care Instructions: Asthma (DC), Community Acquired Pneumonia (DC) Additional Instructions: Take your medication as prescribed. Follow up with your primary care provider and your dry cans back tender. Return to the emergency department immediately if your symptoms worsen or if you develop any numbness, tingling, dizziness, shortness of breath, difficulty breathing, chest pain, blurry vision, loss of vision, nausea, vomiting, abdominal pain, fever, chills, back pain, or any other complaints. Please see the information below about our Patient Portal. If you are not yet enrolled in the [facility] Patient Portal, you will receive an enrollment email invitation following your visit to any [facility] care setting. You may also self-enroll in the Patient Portal by visiting our website: [email or web address] The following information is required to access the Patient Portal: - Your [facility] Medical Record Number - Your personal home email address (must match what is in your electronic medical record, Registration staff can assist with this) - Name - Date of Capabilities of the Patient Portal: - Message some providers - View upcoming appointments - Access your health summary, medical history, and visit history - View current conditions and allergies - View procedure and lab results - View your medications, including guidelines, side effects, and precautions - Complete pre-appointment questionnaires requested by your provider - Ready summary reports of your office visits and procedures To access the Patient Portal Mobile [employer], follow these directions: - Search [employer] in the [employer] Store or [employer] Store - Download the [employer] - Search for [facility] - Enter your login/password Prescriptions: New doxycycline hyclate 100 mg tablet 100 mg PO BID 7 Days Qty: 14 0RF prednisone 20 mg tablet 20 mg PO DAILY 7 Days Qty: 7 0RF No Action loratadine 10 mg tablet 10 mg PO DAILY 90 Days Qty: 90 3RF tizanidine 2 mg capsule 2 mg PO TID PRN (Reason: muscle spasm) 30 Days Qty: 90 2RF nystatin 100,000 unit/mL suspension 5 ml PO DAILY 10 Days Qty: 50 1RF Rx Instructions: swish and swallow alendronate 70 mg tablet 70 mg PO QWEEK 28 Days Qty: 4 3RF cyanocobalamin (vitamin B-12) 1,000 mcg tablet 1,000 mcg PO DAILY 30 Days Qty: 90 3RF docusate sodium 100 mg capsule 200 mg PO BID Qty: 360 3RF mesalamine 400 mg capsule (with del rel tablets) 1,200 mg PO BID Qty: 120 3RF rosuvastatin 40 mg tablet 40 mg PO DAILY Qty: 90 0RF lorazepam 0.5 mg tablet 0.5 mg PO BID PRN (Reason: anxiety) cranberry extract 250 mg capsule 250 mg PO DAILY Rx Instructions: administer with a meal albuterol sulfate 2.5 mg /3 mL (0.083 %) solution for nebulization 2.5 mg inhalation Q4-6H PRN (Reason: shortness of breath or wheezing) 30 Days Qty: 180 3RF epinephrine [EpiPen 2-Isma] 0.3 mg/0.3 mL auto-injector 0.3 mg IM Q10M PRN (Reason: anaphylaxis) Qty: 2 2RF Rx Instructions: for 2 doses budesonide 32 mcg/actuation spray,non-aerosol 1 spray intranasal DAILY Rx Instructions: administer into each nostril diclofenac sodium [Arthritis Pain (diclofenac)] 1 % gel 4 g topical QID 30 Days Qty: 200 3RF Rx Instructions: apply to single knee, ankle, foot; for foot includes sole/toes/top of foot cholecalciferol (vitamin D3) 50 mcg (2,000 unit) tablet 50 mcg PO DAILY 90 Days Qty: 90 3RF lamotrigine [Lamictal] 100 mg tablet 100 mg PO DAILY Qty: 30 0RF Humira(CF) Pen 40 mg/0.4 mL pen injector kit 40 mg subcut Q2W coenzyme Q10 [Co Q-10] 50 mg capsule 100 mg PO DAILY clotrimazole 1 % cream 1 appful vaginal BEDTIME PRN estradiol 0.01 % (0.1 mg/gram) cream See Rx Instructions .Route 3XW 30 Days Qty: 42.5 2RF Rx Instructions: Start with application daily for 2 weeks. pea-sized to urethra 3 times a week following fluticasone propion-salmeterol [Advair Diskus] 500-50 mcg/dose blister with device 1 inh inhalation Q12H Qty: 60 6RF albuterol sulfate 90 mcg/actuation HFA aerosol inhaler 2 puff inhalation QID PRN (Reason: wheezing) Qty: 6.7 4RF acetaminophen [Tylenol 8 Hour] 650 mg tablet extended release 1,300 mg PO Q12H PRN omeprazole 20 mg tablet,delayed release (DR/EC) 20 mg PO DAILY montelukast 10 mg tablet 10 mg PO DAILY Qty: 30 3RF fluticasone propion-salmeterol 500-50 mcg/dose blister with device inhalation azelastine 137 mcg (0.1 %) spray,non-aerosol intranasal nystatin-triamcinolone 100,000-0.1 unit/g-% cream 1 appl topical TID Qty: 30 0RF Pataday Once Daily Relief 0.7 % drops 1 drp ophthalmic (eye) DAILY PRN nystatin 100,000 unit/mL suspension 5 ml PO DAILY 10 Days Qty: 50 1RF Rx Instructions: swish and swallow celecoxib 100 mg capsule 100 mg PO BID PRN (Reason: pain) 30 Days Qty: 60 0RF Referrals: Layton Ward MD [Primary Care Provider, Internal Medicine] Interventions: ED Discharge Assessment Last Done: 02/21/25 14:53 Discharge Date/Time: 02/21/25 15:04 Print Language: Kiswahili
[2025-02-21 11:20] LABS: Resp Syncy Virus RNA Qual PCR NEGATIVE (Negative); SARS COV2 PCR INHOUSE NEGATIVE (Negative)
[2025-02-21 11:54] VITALS: PULSE 81; RESP 22; O2SAT 97
[2025-02-21 14:08] VITALS: BP 136/81; PULSE 81; RESP 18; TEMP 36.6; O2SAT 97
[2025-02-21 14:53] VITALS: BP 136/81; PULSE 81; RESP 18; TEMP 36.6; O2SAT 97
== END 2025-02-21 14:53 | disposition home or self-care (01) ==
PROVIDERS: Emergency Provider Emergency Medicine; PCP Family Medicine
DX: J18.9 Pneumonia, unspecified organism (principal); J45.901 Unspecified asthma with (acute) exacerbation; M25.561 Pain in right knee; R06.02 Shortness of breath; R05.9 Cough, unspecified; R07.89 Other chest pain; Z03.818 Encounter for observation for suspected exposure to other biological agents ruled out; Z79.899 Other long term (current) drug therapy
CPT/HCPCS: 71046; 71250; 80053; 83880; 85025; 87637; 94640; 99284; 99285

== ENCOUNTER 2025-03-05 10:38 | Outpatient (AMB) | payer OTHER, SELFPAY ==
--- OUTSIDE RECORDS SUMMARY | 2024-06-19 09:40 | XMS_ITS ---
Author Organization Total [facility] Address [address] [place] [address] Care Team Providers Care Skidway Worker Name Role Phone BRITNEY STOREY Primary Care Provider Unavailab Debo Seymour Unavailable [phone] REASON FOR VISIT ULTRA - BLOATING PAIN Encounters Encounter Location Date Provider Diagnosis [facility] [address] [address] 06/19/2024 Debo Patel Plan Of Treatment Next Appt Details Provider Name:Debo head, 06/10/2025 02:40:00 PM, [address] [place] [address], [address], [place], [address], Progress Notes * JAIME SÁNCHEZDOB:1970 (55 yo F)Acc No.[id number]:06/19/2024 PROGRESS NOTES Patient: JAIME CARVAJAL Appointment Provider: Jennifer Patel M.D. :1970 A ge:54 Y S ex:Female Date:06/19/2024 Address:[address] [place], [place] [phone] Pcp:BRITNEY STOREY Subjective: * Chief Complaints: * 1 . ULTRA - BLOATING PAIN. * Medical History: Objective: * Vitals: Assessment: Plan: * Treatment: * Images: Billing Information: * Visit Code: * Procedure Codes: * Electronic signature of Mary Patel MD on 03/05/2025 at 10:47 AM EDT Sign off status: Pending * Appointment Provider: Jennifer Patel M.D. Date: 08/19/2023 Generated for Jasmyn gordon/Linda/Gregorioitting on: 0 03/05/2025 10:47 AM EDT
--- OUTSIDE RECORDS SUMMARY | 2025-03-05 10:47 | XMS_ITS | Encounter Summary ---
Author Organization [facility] Address [address] [facility] [address] [facility] [address] [place] [id number] Phone Care Team Providers Care Quality Assurance Qa Lab Analyst Name Role Phone Unknown, Unknown Primary Care Provider Angel Espinoza MD Primary Care Provider [phone] Encounter Details Date Type Department Care Team (Late st Contact Info) Description 09/07/2017 Transcribe Orders [facility] Specimen Processing [address] [place] [id number] Angel Mariano MD [address] [place] [address] [address], [address] [place] [address] [email or web address] Fever, unspecified fever cause (Primary Dx); Malaise Social History Tobacco Use Types Packs/Day Years Used Date Smoking Tobacco: Never Assessed Comments Unknown Sex and Gender Information Value Date Recorded Sex Assigned at Not on file Legal Sex Female 10:32 AM EST Gender Identity Not on file Sexual Orientation Not on file documented as of this encounter Plan of Treatment Not on file documented as of this encounter Results * Rapid influenza A and B (09/07/2017 12:00 PM EST) Influenza A Ag Negative Negative [facility] Influenza B Ag Negative Negative [facility] Other (Nasal) 09/07/2017 12: 00 PM EST 09/07/2017 3:52 PM EST us Angel Mariano MD MICROBIOLOGY - GENERAL ORDERABLE S Final Result [facility] [address] [place] [address] documented in this encounter Visit Diagnoses Diagnosis Fever, unspecified fever cause- Primary Malaise Other malaise and fatigue documented in this encounter Care Teams Quality Assurance Qa Lab Analyst Relationship Specialty Start Date End Date Unknown, Unknown, MD PCP - General 09/02/17 09/10/17 Angel Mariano MD [email or web address] PCP - General Family Medicine 09/11/17 documented as of this encounter Additional Source Comments The information contained in this document represents components of the legal health record. It is not the complete legal health record.[facility]
--- OUTSIDE RECORDS SUMMARY | 2025-03-05 10:47 | XMS_ITS | Patient Health Record ---
Author Organization [facility] Address [address] [place] [address] Care Team Providers Care Dividend Clerk Name Role Phone Bindu Sanders MD Primary Care Provider Boris Carbajal Jr Unavailable [phone] Allergies Allergen (clinical drug ingredient) Drug/Non Drug [...] Problem Status W/U Status Risk Notes Problem Liver function tests abnormal ([id number]) Nonspecific abnormal results of liver function study [...] Coverage End Date MEDICARE OF [address] [address] AINSLEY SANCHEZ [id number] Josselin Harrington Self - patient is the insured MEDICAID OF [facility] [address] [place] [address] [id number] Josselin Harrington Self - patient is the insured Medical (General) History Medical History History ICD Code back and hip pain following a fall hypertension depression anxiety esophageal reflux elevated lipids low vitamin D level
--- OUTSIDE RECORDS SUMMARY | 2025-03-05 10:47 | XMS_ITS | Clinical Summary ---
Author Organization [address] Address [address] [place] [id number] Phone Care Team Providers Care Gripper Installer Name Role Phone Lisa Santos MD Primary Care Provider [phone] Allergies Active Allergy Reactions Criticality Noted Date [...] time each day. 2 Active sodium chloride (Shaw Saline) 0.65 % nasal drops 3 Drops by Each Nare route 3 times daily. 1 Active tiZANidine (ZANAFLEX) 2 mg capsule Take 1 capsule by mouth at bedtime as needed for Muscle spasms. 1 Active coenzyme Q-10 10 mg capsule Take by mouth. 7 Active Active Problems Problem Noted Date Diagnosed Date Ankylosing spondylitis ([facility] V24, [facility] V28 ) 08/07/2024 Overview (08/07/2024): Onset ~ : SI joint fusion, fused LS and T spine Humira started December 2015- held in the summer due to dental problems Episode of Iritis - 05/23 Hepatic steatosis 08/07/2024 Morbid obesity with BMI of 4 0.0-44.9, adult ([facility] V24, [facility] V28) 08/07/2024 Chronic rhinitis 09/23/2019 Vitamin B12 deficiency 05/20/2019 Snoring 01/05/2019 Overview (08/07/2024): 12/2018 Home Sleep Study did not reveal sleep apnea or nocturnal hypoxia. 04/2019 Diagnostic polysomnogram did not reveal ELIJAH or nocturnal hypoxia. Crohn's disease of large int estine without complication ([facility] V24, [facility] V28) 08/11/2018 RLS (restless legs syndrome) 05/28/2018 Thyroid nodule 12/10/2017 Fracture of lumbar spine ([facility] V24, [facility] V 28) 08/05/2017 Overview (08/07/2024): Macario fracture Sternal fracture 08/05/2017 Fracture of rib of left side 08/05/2017 Overview (08/07/2024): Left 7th and 8th fracture Lung nodules 05/05/2016 Overview (08/07/2024): on imaging at [place], followed by Dr. Gaytan. CAT scan 04/23/17: [...] ascending colitis on bxy ESOPHAGOGASTRODUODENOSCOPY 09/12/2015 PROCEDURE: [place] ESOPHAGOGASTRODUODENOSCOPY TRANSORAL DIAGNOSTIC; COMMENT: Normal with nl duodenal, antral and GE junction bxys BREAST BIOPSY 06/25/2018 Left PROCEDURE: BX BREAST; PERC NEEDLE CORE W/IMAG GUID; COMMENT: BENIGN FIBROADENOMATOUS CHANGES. OTHER SURGICAL HISTORY 02/2021 PROCEDURE: MAMMOGRAM, SCREENING, BOTH BREASTS Medical History Medical History Date Comments Depression with anxiety 10/06/2015 DX:Depre ssion with anxiety; COMMENT: [facility] - therapist Khushi triyohana to see her once in a week Hypercholesteremia 10/06/2015 DX:Hyperchole steremia Asthma 10/06/2015 DX:Asthma; COMME NT: Dr. Gaytan Ulcerative colitis ([facility] V24, [facility] V28) DX:Ulcerative colitis (HCC); COMMENT: Dr. Baez Ankylosing spondylitis ([facility] V24, [facility] V28) DX:Ankylosing spondylitis (H CC); COMMENT: Dr. Mckay Hepatic steatosis DX:Hepatic sher atosis Pelvic pain 11/24/2015 DX:Pelvic pain Iron deficiency anemia 11/25/2015 DX:Iron d eficiency anemia Vitamin D deficiency 11/25/2015 DX:Vitamin D deficiency Disc disease, degenerative, cervical 12/13/2015 DX:Disc disease, degenerative, cervical Lung nodules 05/2016 DX:Lung nodules; COMMENT: on imaging at [place], followed by Dr. Gaytan. Fracture of rib of left side 08/2017 DX: Fracture of rib of left side; COMMENT: Left 7th and 8th fracture Fracture of lumbar spine (CM S/HCC V24, [facility] V28) 08/2017 DX:Fracture of lumbar spine (HCC); COMMENT: Macario fracture Sternal fracture 08/2017 DX:Sternal frac ture Crohn's disease (CMS/HCC V24 , [facility] V28) DX:Crohn's disease (HCC) Family [...] 12/12/2015 Zoster Vaccines (1 of 2) 02/13/2020 Medicare Annual Wellness Visit 07/14/2022 Social Influencers of Health Screening 07/14/2022 COVID-19 Vaccine ( season) 2024 06/02/2021, 11/16/2020, 10/26/2020 Depression Screening 08/05/2024 Cholesterol Screening (Lipid Panel) 08/21/2024 08/21/2019 Hypertension/CHF/CAD Annual BMP Blood Test 09/03/2024 12/06/2020 Influenza Vaccine (#1) 2025 , 05/31/2022, 05/05/2021, Additional history exists Colorectal Cancer Screening: Colonoscopy 09/12/2025 09/12/2015 Pneumococcal Vaccine: 50+ Years (3 of 3 - PCV20 or PCV21) 03/16/2026 03/16/2021, 05/21/2016, 02/01/2015 Breast Cancer Screening 09/02/2026 09/02/19 25, 08/22/2023, 08/17/2022, Additional history exists DTaP,Tdap,and Td Vaccines (3 - Td or Tdap) 04/15/2033 04/15/2023, 06/21/2016 HIV Screening Completed 01/10/2018 Hepatitis C Screening Completed 12/06/2020 HIB Vaccines Aged Out No longer eligi [...] is recommended in 1 year. MAMMO LOCATION: [facility], [address] [place] [address], [phone], . -------- FINAL REPORT -------- Dictated By: Roselyn Martinez Dictated Date: 09/03/2024 08:19 ET Assigned Physician: Roselyn Martinez Reviewed and Electronically Signed By: Roselyn Martienz Signed Date: 09/03/2024 08:24 ET Workstation ID: [id number] Transcribed By: Self Edit Transcribed Date: 09/03/2024 [...] is recommended in 1 year. MAMMO LOCATION: [facility], [address] [place] [address], [phone], . -------- FINAL REPORT -------- Dictated By: Roselyn Martinez Dictated Date: 09/03/2024 08:19 ET Assigned Physician: Roselyn Martinez Reviewed and Electronically Signed By: Roselyn Martinez Signed Date: 09/03/2024 08:24 ET Workstation ID: [id number] Transcribed By: Self Edit Transcribed Date: 09/03/2024 08:19 ET Lisa Santos MD IMG BI PROCEDURES Final Result * Annual BMP Blood Test (12/06/2020) [facility] Annual BMP Blood Test abstracted [facility] Provider HEALTH MAINTENANCE Final Result * Hepatitis C Screening (12/06/2020) [facility] Hepatitis C Screening abstracted Result [facility] Provider HEALTH MAINTENANCE Final Result * (ABNORMAL) Lipid panel (08/21/2019) [facility] LDL/HDL Ratio 4 0 - 4 Triglycerides 186(A) 0 - 150 mg/dL Cholesterol 198 0 - 200 mg/dL HDL 56 >=40 mg/dL LDL Cholesterol 105(A) 0 - 100 mg/dL Blood Venous blood specimen / Unknown Result [facility] Provider LAB BLOOD ORDERABLES Micaela l Result * HIV Screening (01/10/2018) [facility] HIV Screening abstracted Result [facility] Provider HEALTH MAINTENANCE Final Result * Cervical Cancer Screening: HPV (12/12/2015) [facility] Cervical Cancer Screening: HPV abstracted, negative us Historical Provider HEALTH MAINTENANCE Final Result * Colonoscopy (09/12/2015) Colonoscopy no interpretation , abstracted Anatomical Region Laterality Modality Other us Historical Provider HEALTH MAINTENANCE Final Result from Last 3 Months or Most Recently Relevant to Health Maintenance Insurance [facility] MEDICARE Member Subscriber Plan / Payer (Ef fective 2016-Present) Name:Josselin Harrington Relation to Subscriber:Self Name:Josselin Harrington Payer ID:[id number] Group ID:[id number] Type:Not on file Address: [place] [address] [address] [id number] Care Teams Gripper Installer Relationship Specialty Start Date End Date Lisa Santos MD [address] [place] [address] PCP - General Internal Medicine 02/15/22
--- NOTE | 2025-03-05 11:26 | A.OFFPC_ITS ---
Vital Signs 03/05/25 11:31 Height 5 ft Weight 208 lb 2 oz BMI 40.6 BP 130/80 Blood Pressure Location Lt brachial Position Sitting Respiration 14 Pulse 82 Pulse Source Pulse Oximeter Pulse Oximetry (%) 97 Oxygen Delivery Method Room Air Intake Visit Reasons: [place] [facility] Intake Note: patient is scheduled to follow up from ed discharge Nurse Clinician Required: No Allergies Penicillins (PENICILLINS) Allergy (Severe, Verified 03/05/25 11:27) ANAPHYLAXIS simvastatin Allergy (Mild, Verified 03/05/25 11:27) weird feeling ibuprofen Adverse Reaction (Intermediate, Verified 03/05/25 11:27) stomach upset, irritates [facility]'s Medication List - Last Reconciled 03/05/25 by Layton Ward MD acetaminophen ER (Tylenol 8 Hour) 1,300 mg PO Q12H PRN adalimumab (Humira(CF) Pen) 40 mg subcut Q2W albuterol sulfate 2.5 mg (3 mL) inhalation Q4-6H PRN 30 days albuterol sulfate 90 mcg/actuation 2 puffs inhalation QID PRN alendronate 70 mg PO QWEEK 28 days azelastine intranasal azithromycin (Zithromax Z-Isma) take 500 mg today (day 1), then 250 mg for 4 days (days 2-5) PO 5 days budesonide 32 mcg/actuation 1 spray intranasal DAILY celecoxib 100 mg PO BID PRN 30 days cholecalciferol (vitamin D3) 50 mcg PO DAILY 3 months clotrimazole 1% 1 appful vaginal BEDTIME PRN coenzyme Q10 (Co Q-10) 100 mg PO DAILY cranberry extract 250 mg PO DAILY cyanocobalamin (vitamin B-12) 1,000 mcg PO DAILY 30 days diclofenac sodium 1% (Arthritis Pain (diclofenac)) 4 grams topical QID 30 days docusate sodium 200 mg (2 x 100 mg) PO BID epinephrine (EpiPen 2-Isma) 0.3 mg (0.3 mL) IM Q10M PRN estradiol 0.01%(0.1mg/gram) Start with application daily for 2 weeks. pea-sized to urethra 3 times a week following 30 days fluticasone propion-salmeterol 500-50 mcg/dose (Advair Diskus) 1 inh inhalation Q12H fluticasone propion-salmeterol 500-50 mcg/dose inhalation lamotrigine (Lamictal) 100 mg PO DAILY loratadine 10 mg PO DAILY 90 days lorazepam 0.5 mg PO BID PRN mesalamine 1,200 mg (3 x 400 mg) PO BID montelukast 10 mg PO DAILY nystatin 5 mL PO DAILY 10 days nystatin 5 mL PO DAILY 10 days nystatin-triamcinolone 100,000-0.1 unit/g-% 1 appl topical TID olopatadine 0.7% (Pataday Once Daily Relief) 1 drp ophthalmic (eye) DAILY PRN omeprazole 20 mg PO DAILY rosuvastatin 40 mg PO DAILY tizanidine 2 mg PO TID PRN 30 days Tobacco use date assessed: 01/24/24 Dental Screening Dental Screen Date: 11/05/23 HPI [place] lung [place] [facility] HPI Details 55 y/o female presents to f/u ED visit f or worsening asthmatic symptoms and R knee swelling. Physical exam, blood work was unremarkable. Chest x-ray showed no acute process. Chest CT showed mild multifocal patchy infiltrates in the lingula. Was prescribed doxycycline, prednisone - recommended f/u with PCP, director of community center, hotel supplies salesperson. Pt notes breathing has been improving but is unsure if infection has gone. Denies any fevers/chills. Continues taking her inhaled meds for her asthma. HPI Comments History of Present Illness Details Documentation assistance for Layton Ward MD, was provided by Jeyson Aviles,? Finance Mgr on 03/05/2025 at 11:48 AM EST. I, Dr. Ward, have read, observed, and verified documentation. ?? [facility] Medical History Tubular adenoma Chronic idiopathic constipation Crohn disease Unspecified asthma, uncomplicated Dysuria Surgical History Hx of colonoscopy History of esophagogastroduodenoscopy (EGD) No pertinent past surgical history Family History Father Suicide Mother Hypertension Diabetes Paternal Grandmother Stroke Brother In good health Sister In good health Social History Housing: Other Housing Other:: mobile home Alcohol intake: current Alcohol intake frequency: does not drink Patient Tobacco Use Status: Never used Tobacco e-Cigarette/Vaping Use: Never Used Second Hand Smoke Exposure: Yes service: No Current occupational status: disabled Current occupational exposures/hazards: No Cognitive needs: No Hearing needs: No Vision needs: No Questionnaire Thrive Questionnaire Date Thrive assessed: 08/12/24 I am a: Patient What is your living situation today?: I choose not to answer this question Within the past 12 months, did the food you bought not last and you didn't have the money to get more?: I choose not to answer this question Within the past 12 months, did you worry whether your food would run out before you got money to buy more?: I choose not to answer this question Do you have trouble paying for medicines?: I choose not to answer this question Do you have trouble getting transportation to medical appointments?: I choose not to answer this question Do you have trouble paying your heating and electricity bill?: I choose not to answer this question Do you have trouble taking care of your child, family member or friend?: I choose not to answer this question Do you have trouble with day-to-day activities such as bathing, preparing meals, shopping, managing finances, etc.?: I choose not to answer this question Are you currently unemployed and looking for a job?: I choose not to answer this question Are you interested in more education?: I choose not to answer this question Please select the resources that you would like help with: None Currently or been in a relationship where the following occur: No concerns reported THRIVE Score: 0 ZENY-7 AMB Questionnaire ZENY-7 Date ZENY - 7 assessed: 08/12/24 Source: Developed by Drs. Bernardino Ahumada, Peri Valencia, Gordy Victoria and colleagues, with an educational hakeem from [employer]. Review of Systems Const Denies chills, Denies fatigue, Denies fever(s), Denies headache(s) and Denies weakness ENT Denies dizziness and Denies headache(s) Card Denies dyspnea Resp Denies cough, Denies dyspnea, Denies wheezing and Denies other (shortness of breath) Musc Denies numbness and Denies tingling Neuro Denies dizziness, Denies headache(s), Denies numbness, Denies tingling and Denies weakness Psych Denies anxiety and Denies depression Endo Denies fatigue Aller/Immun Denies wheezing Physical exam (Primary Care) Vital Signs: Last Vital Signs Pulse 82 03/05/25 11:31 Resp 14 03/05/25 11:31 BP 130/80 03/05/25 11:31 Pulse Ox 97 03/05/25 11:31 Oxygen Delivery Method Room Air 03/05/25 11:31 BMI result Body Mass Index 40.6 Tobacco/Smoking Status: Tobacco use Status Tobacco use date assessed 01/24/24 03/05/25 11:26 Patient Tobacco Use Status Never used Tobacco 03/05/25 11:26 e-Cigarette/Vaping Use Never Used 03/05/25 11:26 Thrive Assessment: Date of Thrive Assessment Date Thrive assessed 08/12/24 03/05/25 11:26 Currently or been in a relationship where the following occur: No concerns reported Const General: well developed; No acute distress Nutritional Appearance: well nourished Orientation/consciousness: patient oriented x3 HENMT Head: Yes normocephalic and Yes atraumatic Eyes General: appearance normal, both eyes and all related structures Pupils: Equal, round and reactive pupils present EOM: EOMs intact bilaterally Resp Other: Coarse breath sounds, crackles Effort & Inspection: normal respiratory effort Auscultation: clear to auscultation bilaterally Cardio Rate: regular rate Rhythm: regular rhythm Heart sounds: S1 normal heart sound present, S2 normal heart sound present, no gallops, no murmurs and no rubs Neuro General: patient oriented x3 and gait normal Cranial nerves: Yes Equal, round and reactive pupils present Psych Affect: normal affect Coding Level of Care Code Est Pt Level 3 (87240) Diagnoses Pneumonia J18.9 Laterality: unspecified laterality Lung location: unspecified part of lung Pneumonia type: due to unspecified organism Asthma exacerbation J45.901 Asthma persistence: unspecified Asthma severity: mild Lung nodule R91.1 Assessment & Plan Assessment & Plan (1) Pneumonia: Code(s): J18.9 - Pneumonia, unspecified organism Category: Medical Qualifiers: Laterality: unspecified laterality Lung location: unspecified part of lung Pneumonia type: due to unspecified organism Qualified Code(s): J18.9 - Pneumonia, unspecified organism Plan: Recent ED visit for shortness of breaths and found to have pneumonia with asthma exacerbation She was given doxycycline and in ED was given methylprednisone. She has completed doxycycline Still notes cough some wheezing On auscultation still has coarse breath sounds with some crackles and wheezing She will continue her inhaled medications. Declines steroids. Will give her a Z-Isma Call or return to office not continuing to improve. She has an upcoming appointment with pulmonology CT scan while in ED also showed 5 mm nodule and she will discuss this with director of community center. She is nonsmoker. (2) Asthma exacerbation: Code(s): J45.901 - Unspecified asthma with (acute) exacerbation Category: Medical Qualifiers: Asthma persistence: unspecified Asthma severity: mild Qualified Code(s): J45.901 - Unspecified asthma with (acute) exacerbation Plan: Continue inhaled medications (3) Lung nodule: Code(s): R91.1 - Solitary pulmonary nodule Category: Medical Plan: As above, she plans to discuss with her director of community center. Medications: New azithromycin (Zithromax Z-Isma) take 500 mg today (day 1), then 250 mg for 4 days (days 2-5) PO 6 tabs 0RF 5 days
[2025-03-05 11:31] VITALS: BP 130/80; PULSE 82; RESP 14; O2SAT 97; BMI 40.6
== END 2025-03-05 11:57 | disposition home or self-care (01) ==
LOC: HO.HMCFM 10:39
PROVIDERS: PCP Family Medicine; Visit Provider Family Medicine
DX: J18.9 Pneumonia, unspecified organism (principal); J45.901 Unspecified asthma with (acute) exacerbation; R91.1 Solitary pulmonary nodule

== ENCOUNTER → 2025-03-05 10:38 | Outpatient (BNVA) | payer OTHER, SELFPAY | PROVIDERS: PCP Family Medicine; Visit Provider Family Medicine | DX: J18.9 Pneumonia, unspecified organism (principal); J45.901 Unspecified asthma with (acute) exacerbation; R91.1 Solitary pulmonary nodule | CPT/HCPCS: 99212 ==

== ENCOUNTER 2025-03-24 14:36 | Outpatient (AMB) | payer OTHER, SELFPAY ==
--- NOTE | 2025-03-24 14:44 | A.OFFVIS_ITS ---
Vital Signs 03/24/25 14:45 Height 5 ft Weight 211 lb 4 oz BMI 41.3 BP 140/76 H Blood Pressure Location Rt brachial Position Sitting Pulse 96 Pulse Source Pulse Oximeter Pulse Oximetry (%) 97 Oxygen Delivery Method Room Air Intake Visit Reasons: Asthma Allergies Penicillins (PENICILLINS) Allergy (Severe, Verified 03/24/25 14:48) ANAPHYLAXIS simvastatin Allergy (Mild, Verified 03/24/25 14:48) weird feeling ibuprofen Adverse Reaction (Intermediate, Verified 03/24/25 14:48) stomach upset, irritates Jenniferohn's HPI HPI Asthma: Details: Josselin is a pleasant 55-year-old female, never smoker with underlying asthma, Crohn's disease and Ankylosing Spondylitis on Humira under the care of Dr. Diane cheema. She is currently on Advair 500 1 inhalation QD, Singulair, rarely using albuterol MDI with moderate control of respiratory symptoms, continues with dry cough. Since the last visit, she was evaluated in the ED 02/21 with worsening asthmatic symptoms for 2 weeks prior. She reported increasing chest tightness, dry cough, and wheezing for 2 weeks with intermittent pleuritic chest pain. She has been consistent with her daily asthma therapy and was using her rescue inhaler as needed with mild benefit. Ultimately patient had chest CT which revealed multifocal opacities of the lingula and treated for an asthma exacerbation secondary to pneumonia with doxycycline and prednisone. She was then evaluated by PCP on 03/05 with continued cough and wheezing, treated with azithromycin and deferred prednisone. Since completion she reports overall improvements in dyspnea, wheezing and near resolution of cough but has significant anxiety related to overall lung health. [facility] Medical History Tubular adenoma Chronic idiopathic constipation Crohn disease Unspecified asthma, uncomplicated Dysuria Surgical History Hx of colonoscopy History of esophagogastroduodenoscopy (EGD) No pertinent past surgical history Family History Father Suicide Mother Hypertension Diabetes Paternal Grandmother Stroke Brother In good health Sister In good health Social History Housing: Other Housing Other:: mobile home Alcohol intake: current Alcohol intake frequency: does not drink Patient Tobacco Use Status: Never used Tobacco e-Cigarette/Vaping Use: Never Used Second Hand Smoke Exposure: Yes service: No Current occupational status: disabled Current occupational exposures/hazards: No Cognitive needs: No Hearing needs: No Vision needs: No Review of Systems Const Denies chills, Denies excessive sweating, Denies fever(s), Denies headache(s) and Denies night sweats Eyes Denies dry eyes, Denies irritation and Denies itchy eyes ENT Reports Normal hearing present and Denies headache(s) Card Denies chest pain, Denies chest pain at rest, Denies chest pain with activity, Denies claudication, Denies leg edema, Denies dyspnea, Denies dyspnea on exertion, Denies orthopnea and Denies paroxysmal nocturnal dyspnea Resp Denies change in phlegm color, Denies chest congestion, Reports cough, Denies hemoptysis, Denies excessive phlegm production, Denies pain on inspiration, Denies pain with cough, Denies dyspnea, Denies dyspnea on exertion, Denies stridor and Denies wheezing Musc Denies myalgias Neuro Reports Normal hearing present and Denies headache(s) Endo Denies excessive sweating Kevin/Lymph Denies lymphadenopathy Aller/Immun Denies itchy eyes, Denies seasonal rhinorrhea and Denies wheezing Physical Exam Vital Signs: Last Vital Signs Pulse 96 03/24/25 14:45 BP 140/76 H 03/24/25 14:45 Pulse Ox 97 03/24/25 14:45 Oxygen Delivery Method Room Air 03/24/25 14:45 BMI result Body Mass Index 41.3 Const General: cooperative, healthy appearing, comfortable, no acute distress, well developed and alert Nutritional Appearance: obese Orientation/consciousness: patient oriented x3 Limitations: no limitations HEENT Head: Yes normal to inspection, Yes normocephalic and Yes atraumatic Ears: hearing grossly normal bilaterally and external ears normal Eyes General: appearance normal, both eyes and all related structures Eyelids: Yes eyelids normal Sclerae: sclerae normal EOM: EOMs intact bilaterally Neck Neck: Yes normal visual inspection and Yes no lymphadenopathy Lymphatic: no lymphadenopathy noted Chest Chest palpation & inspection: normal inspection of the chest Resp Effort & Inspection: normal respiratory effort, able to speak in complete sentences, no audible wheezes, no cough, no stridor, not tachypneic, no tripod positioning and no use of accessory muscles Auscultation: clear to auscultation bilaterally Cardio Jugular venous distension: no JVD Rate: regular rate Rhythm: regular rhythm Skin Other: warm, dry General skin exam: no rashes or lesions noted Neuro General: patient oriented x3 Cranial nerves: Yes Normal hearing present Cognition (Neuro): normal cognition Gait exam (Neuro): Normal gait present Extrem General: Yes normal to inspection, Yes capillary refill normal, Yes no clubbing, cyanosis or edema and Yes no pedal edema Psych Appearance: grossly normal and well kempt Speech and movement: Normal speech and movement present and Clear speech present Affect: normal affect Attitude: cooperative Thought process: Normal thought process present Thought content: Normal thought content present Insight: Good insight present (Psych) Judgement: Good judgement present (Psych) Results Reviewed Results Reviewed: [address] [address] [address] Scan Report Signed Patient: Josselin Harrington MR#: [id number] : 1970 Acct:[id number] Age/Sex: 55 / F ADM Date: 02/21/25 Loc: .ED Attending Dr: Ordering Physician: Leslee Boateng Date of Service: 02/21/25 Procedure(s): CT chest wo IV con Accession Number(s): [id number] cc: Leslee Boateng; Layton Ward MD~ Report Number: [id number]: Total DLP = 271.00 mGy-cm CLINICAL HISTORY: SOB, cough CT CHEST WITHOUT CONTRAST Comparison: CR - XR CHEST 2V - 02/21/25 10:02 EDT Findings: The heart size is normal. Scattered calcific plaque in the ectatic thoracic aorta. No aneurysmal dilatation. The visualized thyroid gland is heterogeneous, possible multinodular thyroid. No mediastinal lymphadenopathy. Multiple patchy airspace opacities in the lingula. No consolidation. No pleural effusion or pneumothorax. There is a 5 mm noncalcified nodule in the left lower lobe. The visualized upper abdomen is unremarkable. The thoracic spine is kyphotic. There is diffuse syndesmophytosis. IMPRESSION: 1. Mild multifocal patchy infiltrates in the lingula. 2. No segmental or lobar pneumonia. 3. Nonspecific 5 mm nodule in the left lower lobe. Please see recommendations below. ACR Fleischner Society recommendations (MacMahon, et al. Radiology 2017; 284(1): 228-43) suggest the following: For patients with low risk of lung cancer, no need for follow-up. For patients with high risk of lung cancer, generally no need for follow-up. An optional chest CT at 12 months could be performed if there is high index of suspicion. This document has been electronically signed by: Shonda Rivera DO on 02/21/2025 14:02:13 Dictated By: Shonda Rivera MD Signed By: <Electronically signed by Shonda Rivera MD in OV> 02/21/25 140 DD/ 01 TD/TT: 02/21/251401 Manager Payer: Assessment & Plan Assessment & Plan (1) Asthma: Code(s): J45.909 - Unspecified asthma, uncomplicated Category: Medical (2) Cough: Code(s): R05.9 - Cough, unspecified Category: Medical (3) Allergic rhinitis: Code(s): J30.9 - Allergic rhinitis, unspecified Category: Medical (4) Lung nodule: Code(s): R91.1 - Solitary pulmonary nodule Category: Medical (5) History of recent pneumonia: Code(s): Z87.01 - Personal history of pneumonia (recurrent) Category: Medical Plan At this time patient with significant improvements since completing doxycycline followed by azithromycin for PNA and LSC, VSS. Will repeat chest CT in 4-6 weeks to assess for resolution of prior noted opacities. There was also note of 5 mm nodule of LLL which will be reimaged in 1 year to assess stability. Again, encouraged patient to increase Advair to 1 inhalation BID in addition to Singulair and discussed importance of compliance. All questions were answered and patient is in agreement of plan. Will follow up in 6-8 weeks or sooner if needed. Orders: Orders CT chest wo IV con 4 Weeks Z87. - Personal history of pneumonia (recurrent) Coding Level of Care Code Est Pt Level 4 (98994) Diagnoses Asthma J45.909 Cough R05.9 Allergic rhinitis J30.9 Lung nodule R91.1 History of recent pneumonia Z.
[2025-03-24 14:45] VITALS: BP 140/76; PULSE 96; O2SAT 97; BMI 41.3
--- OUTSIDE RECORDS SUMMARY | 2025-03-24 15:32 | XMS_ITS | Encounter Summary ---
Author Organization [employer] [facility] Address [address] [place] [address] Phone Care Team Providers Care Ocean Lifeguard Name Role Phone Unknown, Unknown Primary Care Provider Angel Espinoza MD Primary Care Provider [phone] Encounter Details Date Type Department Care Team (Late st Contact Info) Description 09/07/2017 Transcribe Orders [facility] Specimen Processing [address] [place] [id number] Angel Mariano MD [address] [place] [address] [address], [address] [place] [address] [email or web address] Fever, unspecified fever cause (Primary Dx); Malaise [...] PM EST) Influenza A Ag Negative Negative [facility] Influenza B Ag Negative Negative [facility] Other (Nasal) 09/07/2017 12: 00 PM EST 09/07/2017 3:52 PM EST us Angel Mariano MD MICROBIOLOGY - GENERAL ORDERABLE S Final Result [facility] [address] [place] [address] documented in this encounter Visit Diagnoses Diagnosis Fever, unspecified fever cause- Primary Malaise Other malaise and fatigue documented in this encounter Care Teams Ocean Lifeguard Relationship Specialty Start Date End Date Unknown, Unknown, MD PCP - General 09/02/17 09/10/17 Angel Mariano MD [email or web address] PCP - General Family Medicine 09/11/17 documented as of this encounter Additional Source Comments The information contained in this document represents components of the legal health record. It is not the complete legal health record.[facility]
--- OUTSIDE RECORDS SUMMARY | 2025-03-24 15:32 | XMS_ITS | Clinical Summary ---
Author Organization [facility] [address] [place] [address] [place] [address] Phone Care Team Providers Care Genetic Physician Name Role Phone Lisa Santos MD Primary Care Provider [phone] Allergies Active Allergy Reactions Criticality Noted Date [...] time each day. 2 Active sodium chloride (Ramey Saline) 0.65 % nasal drops 3 Drops by Each Nare route 3 times daily. 1 Active tiZANidine (ZANAFLEX) 2 mg capsule Take 1 capsule by mouth at bedtime as needed for Muscle spasms. 1 Active coenzyme Q-10 10 mg capsule Take by mouth. 7 Active Active Problems Problem Noted Date Diagnosed Date Ankylosing spondylitis ([facility] V24, [facility] V28 ) 08/07/2024 Overview (08/07/2024): Onset ~ : SI joint fusion, fused LS and T spine Humira started December 2015- held in the summer due to dental problems Episode of Iritis - 05/23 Hepatic steatosis 08/07/2024 Morbid obesity with BMI of 4 0.0-44.9, adult ([facility] V24, [facility] V28) 08/07/2024 Chronic rhinitis 09/23/2019 Vitamin B12 deficiency 05/20/2019 Snoring 01/05/2019 Overview (08/07/2024): 12/2018 Home Sleep Study did not reveal sleep apnea or nocturnal hypoxia. 04/2019 Diagnostic polysomnogram did not reveal ELIJAH or nocturnal hypoxia. Crohn's disease of large int estine without complication ([facility] V24, [facility] V28) 08/11/2018 RLS (restless legs syndrome) 05/28/2018 Thyroid nodule 12/10/2017 Fracture of lumbar spine ([facility] V24, [facility] V 28) 08/05/2017 Overview (08/07/2024): Macario fracture Sternal fracture 08/05/2017 Fracture of rib of left side 08/05/2017 Overview (08/07/2024): Left 7th and 8th fracture Lung nodules 05/05/2016 Overview (08/07/2024): on imaging at [place], followed by Dr. Gaytan. CAT scan 04/23/17: [...] anxiety 10/06/2015 DX:Depre ssion with anxiety; COMMENT: [facility] - therapist Khushi triyohana to see her once in a week Hypercholesteremia 10/06/2015 DX:Hyperchole steremia Asthma 10/06/2015 DX:Asthma; COMME NT: Dr. Gaytan Ulcerative colitis ([facility] V24, [facility] V28) DX:Ulcerative colitis (HCC); COMMENT: Dr. Baez Ankylosing spondylitis ([facility] V24, [facility] V28) DX:Ankylosing spondylitis (H CC); COMMENT: Dr. Mckay Hepatic steatosis DX:Hepatic sher atosis Pelvic pain 11/24/2015 DX:Pelvic pain Iron deficiency anemia 11/25/2015 DX:Iron d eficiency anemia Vitamin D deficiency 11/25/2015 DX:Vitamin D deficiency Disc disease, degenerative, cervical 12/13/2015 DX:Disc disease, degenerative, cervical Lung nodules 05/2016 DX:Lung nodules; COMMENT: on imaging at [place], followed by Dr. Gaytan. Fracture of rib of left side 08/2017 DX: Fracture of rib of left side; COMMENT: Left 7th and 8th fracture Fracture of lumbar spine (CM S/HCC V24, [facility] V28) 08/2017 DX:Fracture of lumbar spine (HCC); COMMENT: Macario fracture Sternal fracture 08/2017 DX:Sternal frac ture Crohn's disease (CMS/HCC V24 , [facility] V28) DX:Crohn's disease (HCC) Family [...] is recommended in 1 year. MAMMO LOCATION: [facility], [address] [place] [address], [address], . -------- FINAL REPORT -------- Dictated By: Roselyn Martinez Dictated Date: 09/03/2024 08:19 ET Assigned Physician: Roselyn Martinez Reviewed and Electronically Signed By: Roselyn Martinez Signed Date: 09/03/2024 08:24 ET Workstation ID: [id number] Transcribed By: Self Edit Transcribed Date: 09/03/2024 [...] is recommended in 1 year. MAMMO LOCATION: [facility], [address] [place] [address], [address], . -------- FINAL REPORT -------- Dictated By: Roselyn Martinez Dictated Date: 09/03/2024 08:19 ET Assigned Physician: Roselyn Martinez Reviewed and Electronically Signed By: Roselyn Martinez Signed Date: 09/03/2024 08:24 ET Workstation ID: [id number] Transcribed By: Self Edit Transcribed Date: 09/03/2024 08:19 ET Lisa Santos MD IMG BI PROCEDURES Final Result * Annual BMP Blood Test (12/06/2020) [facility] Annual BMP Blood Test abstracted [facility] Provider HEALTH MAINTENANCE Final Result * Hepatitis C Screening (12/06/2020) [facility] Hepatitis C Screening abstracted Result [facility] Provider HEALTH MAINTENANCE Final Result * (ABNORMAL) Lipid panel (08/21/2019) [facility] LDL/HDL Ratio 4 0 - 4 Triglycerides 186(A) 0 - 150 mg/dL Cholesterol 198 0 - 200 mg/dL HDL 56 >=40 mg/dL LDL Cholesterol 105(A) 0 - 100 mg/dL Blood Venous blood specimen / Unknown Result [facility] Provider LAB BLOOD ORDERABLES Micaela l Result * HIV Screening (01/10/2018) [facility] HIV Screening abstracted Result [facility] Provider HEALTH MAINTENANCE Final Result * Cervical Cancer Screening: HPV (12/12/2015) [facility] Cervical Cancer Screening: HPV abstracted, negative us Historical Provider HEALTH MAINTENANCE Final Result * Colonoscopy (09/12/2015) Colonoscopy no interpretation , abstracted Anatomical Region Laterality Modality Other us Historical Provider HEALTH MAINTENANCE Final Result from Last 3 Months or Most Recently Relevant to Health Maintenance Insurance [facility] MEDICARE Member Subscriber Plan / Payer (Ef fective 2016-Present) Name:Josselin Harrington Relation to Subscriber:Self Name:Josselin Harrington Payer ID:[id number] Group ID:[id number] Type:Not on file Address: [place] [address] [address] [phone] Care Teams Genetic Physician Relationship Specialty Start Date End Date Lisa Santos MD [address] [place] [address] PCP - General Internal Medicine 02/15/22
--- OUTSIDE RECORDS SUMMARY | 2025-03-24 15:32 | XMS_ITS | Patient Health Record ---
Author Organization [facility] Address [address] [place] [address] Care Team Providers Care Crown Ironer Name Role Phone BRITNEY STOREY Primary Care Provider Unavailab Debo Seymour Unavailable [phone] Allergies Allergen (clinical drug ingredient) Drug/Non Drug [...] a day; Duration: 30 day(s) Active Nystatin 644988 UNIT/GM 1 application Ex ternally Twice a [...] Status W/U Status Risk Notes Problem Menopause (951010638) Menopausal and female climacteric states (N95.1) Active confirmed Problem Postmenopausal atrophic vaginitis (75499695) Postmenopausal atrophic vaginitis (N95.2) Active confirmed Problem Polycystic ovary syndrome (disorder) (974257707) Polycystic ovarian syndrome (E28.2) Active confirmed Problem Morbid obesity (disorder) (432201990) Morbid (severe) obesity due to excess calories (E66.01) Active confirmed Problem Hyperlipidemia (76013597) Hyperlipidemia, unspecified (E78.5) Active confirmed Problem Recurrent depression (634318516) Other recurrent depressive disorders (F33.8) Active confirmed Problem Anxiety disorder (912380111) Anxiety disorder, unspecified (F41.9) Active confirmed Problem Vitreous opacities (099559073) Other vitreous opacities, unspecified eye (H43.399) Active confirmed Problem Asthma (980368040) Other asthma (J45.998) Active confirmed Problem Crohn's disease (83497944) Crohn's disease, unspecified, with unspecified complications (K50.919) Active confirmed Problem Fatty liver (947667910) Fatty (change of) liver, not elsewhere classified (K76.0) Active confirmed Problem Ankylosing spondylitis (2861141) Ankylosing spondylitis of unspecified sites in spine (M45.9) Active confirmed Problem Gastroesophageal reflux disease with esophagitis (disorder) (280733686) Gastro-esophageal reflux disease with esophagitis, without bleeding (K21.00) Active confirmed Vital Signs Temperature 97.4 degrees Fahrenheit 06/03/2024 Blood pressure diastolic 84 mm Hg 06/03/2024 Height 59 in 06/03/2024 Blood pressure systolic 124 mm Hg 06/03/2024 Weight 193 lbs 06/03/2024 BMI 38.98 kg/m2 06/03/2024 Encounters Encounter Location Date Provider Diagnosis [place] [address] [place] [address] [address] 06/19/2024 Debo Patel [address] [address] 06/03/2024 Debo Patel Encounter for gynecological examination (general) (routine) without abnormal findings Z01.419 ; Encounter for screening mammogram for malignant neoplasm of breast Z12.31 and Acute candidiasis of vulva and vagina B37.31 [address] [address] 07/30/2024 Debo Patel Assessments Encounter Date Diagnosis [...] Name:Debo head, 06/10/2025 02:40:00 PM, [address], [address], [place], [address], Insurance Providers Payer Name Payer Address Payer Phone Subscriber Number Group Number Insured Name Patient Relationship to Insured Coverage Start Date Coverage End Date [place] [id number] JAIME SÁNCHEZ Self - patient is the [...]
== END 2025-03-24 15:22 | disposition home or self-care (01) ==
LOC: HO.HPSW 14:37
PROVIDERS: PCP Family Medicine; Visit Provider Nurse Practitioner Family
DX: J45.909 Unspecified asthma, uncomplicated (principal); R05.9 Cough, unspecified; J30.9 Allergic rhinitis, unspecified; R91.1 Solitary pulmonary nodule; Z87.01 Personal history of pneumonia (recurrent)
CPT/HCPCS: 99214

== ENCOUNTER → 2025-03-24 14:36 | Outpatient (BNVA) | payer OTHER, SELFPAY | PROVIDERS: PCP Family Medicine; Visit Provider Nurse Practitioner Family | DX: R91.1 Solitary pulmonary nodule (principal); J30.9 Allergic rhinitis, unspecified; Z87.01 Personal history of pneumonia (recurrent) | CPT/HCPCS: 99212 ==

== ENCOUNTER 2025-04-06 10:40 | Outpatient (AMB) | payer OTHER, SELFPAY ==
--- NOTE | 2025-04-06 10:44 | MHC.OFFVIS ---
Intake Visit Reasons: Inj- left knee Durolane inj, Bilateral knee pain Intake Note: Josselin is a 55 year old female who presents with complaints of progressively worsening bilateral knee pains. The patient did have a Durolane viscosupplementation injection given into her right knee on 11/04/2024. She got fairly good relief from that injection initially. At this point her left knee pain is more bothersome to her. She describes her left knee pain as sharp in nature. She has failed the last 3 months of conservative treatment. She has had cortisone injections in the past which gave her minimal relief. She can not tolerate anti-inflammatory medicines because of her Crohn's disease. She has tried Tylenol which gives her minimal relief. She wishes to hold off on surgery if at all possible. Allergies Penicillins (PENICILLINS) Allergy (Severe, Verified 04/06/25 10:46) ANAPHYLAXIS simvastatin Allergy (Mild, Verified 04/06/25 10:46) weird feeling ibuprofen Adverse Reaction (Intermediate, Verified 04/06/25 10:46) stomach upset, [facility] - Last Reconciled 04/06/25 by Andrea Ponce MD acetaminophen ER (Tylenol 8 Hour) 1,300 mg PO Q12H PRN adalimumab (Humira(CF) Pen) 40 mg subcut Q2W albuterol sulfate 2.5 mg (3 mL) inhalation Q4-6H PRN 30 days albuterol sulfate 90 mcg/actuation 2 puffs inhalation QID PRN alendronate 70 mg PO QWEEK 28 days azelastine intranasal budesonide 32 mcg/actuation 1 spray intranasal DAILY celecoxib 100 mg PO BID PRN 30 days cholecalciferol (vitamin D3) 50 mcg PO DAILY 3 months clotrimazole 1% 1 appful vaginal BEDTIME PRN coenzyme Q10 (Co Q-10) 100 mg PO DAILY cranberry extract 250 mg PO DAILY cyanocobalamin (vitamin B-12) 1,000 mcg PO DAILY 30 days diclofenac sodium 1% (Arthritis Pain (diclofenac)) 4 grams topical QID 30 days docusate sodium 200 mg (2 x 100 mg) PO BID epinephrine (EpiPen 2-Isma) 0.3 mg (0.3 mL) IM Q10M PRN estradiol 0.01%(0.1mg/gram) Start with application daily for 2 weeks. pea-sized to urethra 3 times a week following 30 days fluticasone propion-salmeterol 500-50 mcg/dose (Advair Diskus) 1 inh inhalation Q12H lamotrigine (Lamictal) 100 mg PO DAILY loratadine 10 mg PO DAILY 90 days lorazepam 0.5 mg PO BID PRN mesalamine 1,200 mg (3 x 400 mg) PO BID montelukast 10 mg PO DAILY nystatin 5 mL PO DAILY 10 days nystatin 5 mL PO DAILY 10 days nystatin-triamcinolone 100,000-0.1 unit/g-% 1 appl topical TID olopatadine 0.7% (Pataday Once Daily Relief) 1 drp ophthalmic (eye) DAILY PRN omeprazole 20 mg PO DAILY rosuvastatin 40 mg PO DAILY tizanidine 2 mg PO TID PRN 30 days PFSH Medical History Tubular adenoma Chronic idiopathic constipation Crohn disease Unspecified asthma, uncomplicated Dysuria Surgical History Hx of colonoscopy History of esophagogastroduodenoscopy (EGD) No pertinent past surgical history Family History Father Suicide Mother Hypertension Diabetes Paternal Grandmother Stroke Brother In good health Sister In good health Social History Housing: Other Housing Other:: mobile home Alcohol intake: current Alcohol intake frequency: does not drink Patient Tobacco Use Status: Never used Tobacco e-Cigarette/Vaping Use: Never Used Second Hand Smoke Exposure: Yes service: No Current occupational status: disabled Current occupational exposures/hazards: No Cognitive needs: No Hearing needs: No Vision needs: No Physical Exam Extrem Other: Bilateral knee examination shows minimal effusions, palpable crepitus with range of motion, pain with range of motion, no instability Office Procedures AMB Joint Injection/Aspiration Joint Injection/Aspiration Primary Site: left knee Prep: site was prepped using aseptic technique Injected: 60 mg of (Durolane viscosupplementation) and 1% plain lidocaine Procedure: The patient tolerated the procedure well Coding 49139 - Large joint Procedure code (CPT) selection complete Results Reviewed Results Reviewed: X-rays of the patient's bilateral knees taken previously show joint space narrowing, subchondral sclerosis, no acute bony abnormalities Assessment & Plan Assessment & Plan (1) Osteoarthritis of left knee: Code(s): M17.12 - Unilateral primary osteoarthritis, left knee Category: Medical (2) Osteoarthritis of right knee: Code(s): M17.11 - Unilateral primary osteoarthritis, right knee Category: Medical (3) Pain in both knees: Code(s): M25.561 - Pain in right knee; M25.562 - Pain in left knee Plan Ms. Harrington presents with bilateral knee pains due to osteoarthritis. The risks and benefits of a left knee Durolane viscosupplementation injection were discussed at length with the patient. The patient wished to proceed. She tolerated the injection well. I will also see if the patient's insurance company will cover a Durolane viscosupplementation injection for her right knee. I will see her back once the injection is approved. Feel free to call me at any time should questions regarding her orthopedic management arise. I spent 20 minutes in reviewing the patient's records and imaging studies, seeing the patient and documenting in the medical record. Orders: Orders AMB Joint Injection/Aspiration Today M17.12 - Unilateral primary osteoarthritis, left knee Coding Level of Care Code Est Pt Level 3 (51009) Complex EM visit Add On G2211 Diagnoses Osteoarthritis of left knee M17.12 Osteoarthritis of right knee M17.11 Pain in both knees M25.561; M25.562 CPT Codes Coding - 86213 Large joint: 44253 - Large joint ([id number])
--- OUTSIDE RECORDS SUMMARY | 2025-04-06 12:11 | XMS_ITS | Encounter Summary ---
Author Organization [facility] Address [address] [place] [address] Phone Care Team Providers Care Dermatology Specialist Name Role Phone Angel Mariano MD Primary Care Provider [phone] Encounter Details Date Type Department Care Team (Latest Contact Info) Description 09/11/2017 Transcribe Orders [facility] Specimen Processing [address] [place] [address] Angel Mariano MD [address] [facility] [place] [address] [email or web address] Moderate persistent asthma, unspecified whether complicated (Primary Dx); Essential hypertension, benign; Hyperlipidemia, unspecified hyperlipidemia type Social History Tobacco Use Types Packs/Day Years Used Date Smoking Tobacco: Never Assessed Comments Unknown Sex and Gender Information Value Date Recorded Sex Assigned at Not on file Legal Sex Female 10:32 AM EST Gender Identity Not on file Sexual Orientation Not on file documented as of this encounter Plan of Treatment Not on file documented as of this encounter Results * (ABNORMAL) CBC (09/11/2017 8:25 AM EST) WBC 3.31(L) 3.40 - 11.20 K/uL [facility] RBC 4.59 3.80 - 4.80 M/uL [facility] HGB 11.5(L) 12.0 - 15.0 g/dL [facility] HCT 35.5(L) 36.0 - 46.0 % [facility] PLT 358 130 - 400 K/uL [facility] MCV 77.3(L) 79.0 - 98.0 [facility] MCH 25.1(L) 27.0 - 34.8 pg [facility] MCHC 32.4 31.5 - 36.0 g/dL [facility] RDW 15.6(H) 10.8 - 14.6 % [facility] MPV 9.9 9.4 - 12.4 [facility] NRBC 0.00 /100 WBCs [facility] ABSOLUTE NRBC 0.00 K/uL [facility] Blood 09/11/2017 8:25 AM EST 09/11/2017 12:17 PM EST us Angel Mariano MD LAB BLOOD ORDERABLES Final Resul t Performing Organization Address City/[facility]/ZIP Co de Phone Number [address] [address] * (ABNORMAL) Basic metabolic panel (09/11/2017 8:25 AM EST) SODIUM 142 133 - 146 mmol/L [facility] CHLORIDE 101 96 - 108 mmol/L [facility] POTASSIUM 4.1 3.3 - 5.1 mmol/L [facility] CO2 26 21 - 35 mmol/L [facility] BUN 9 6 - 19 mg/dL [facility] CREATININE <0.50(L) 0.5 - 1.5 mg/dL [facility] GLUCOSE 96 70 - 99 mg/dL [facility] CALCIUM 9.2 8.4 - 10.3 mg/dL [facility] EGFR Test Not Performed. >60 mL/min/1.7 3m2 [facility] Comment:Abnormal if <60. If patient is -[place]aguayan, multiply the result by 1.21. ANION GAP 19 10 - 20 mmol/L [facility] Blood 09/11/2017 8:25 AM EST 09/11/2017 12:17 PM EST us Angel Mariano MD LAB BLOOD ORDERABLES Final Resul t Performing Organization Address City/[facility]/ZIP Co de Phone Number [address] [address] documented in this encounter Visit Diagnoses Diagnosis Moderate persistent asthma, unspecified whether complicated- Primary Essential hypertension, benign Hyperlipidemia, unspecified hyperlipidemia type documented in this encounter Care Teams Dermatology Specialist Relationship Specialty Start Date End Date Angel Mariano MD [email or web address] PCP - General Family Medicine 09/11/17 documented as of this encounter Additional Source Comments The information contained in this document represents components of the legal health record. It is not the complete legal health record.[facility]
--- OUTSIDE RECORDS SUMMARY | 2025-04-06 12:11 | XMS_ITS | Encounter Summary ---
Author Organization [facility] Address [address] [place] [address] Phone Care Team Providers Care Thread Clipper Name Role Phone Unknown, Unknown Primary Care Provider Angel Espinoza MD Primary Care Provider [phone] Encounter Details Date Type Department Care Team (Late st Contact Info) Description 09/02/2017 Transcribe Orders [facility] Specimen Processing [address] [place] [address] Angel Mariano MD [address] [facility] [address] [place] [address] [email or web address] Examination (Primary Dx) Social History Tobacco Use Types Packs/Day Years Used Date Smoking Tobacco: Never Assessed Comments Unknown Sex and Gender Information Value Date Recorded Sex Assigned at Not on file Legal Sex Female 10:32 AM EST Gender Identity Not on file Sexual Orientation Not on file documented as of this encounter Plan of Treatment Not on file documented as of this encounter Results * (ABNORMAL) Comprehensive metabolic panel (09/02/2017 8:20 AM EST) SODIUM 141 133 - 146 mmol/L [facility] POTASSIUM 4.7 3.3 - 5.1 mmol/L [facility] CHLORIDE 100 96 - 108 mmol/L [facility] CO2 29 21 - 35 mmol/L [facility] BUN 12 6 - 19 mg/dL [facility] CREATININE 0.50 0.5 - 1.5 mg/dL [facility] GLUCOSE 85 70 - 99 mg/dL [facility] ALBUMIN 4.2 3.9 - 4.8 g/dL [facility] TOTAL PROTEIN 7.1 6.5 - 8.0 g/dL [facility] CALCIUM 9.5 8.4 - 10.3 mg/dL [facility] ALKALINE PHOSPHATASE 118(H) 39 - 117 U/L [facility] TOTAL BILIRUBIN 0.4 0 - 1.2 mg/dL [facility] AST 19 0 - 37 U/L [facility] ALT 23 0 - 40 U/L [facility] GLOBULIN 2.9 1 - 4.8 g/dL [facility] EGFR >60 60 - 1000 mL/min/1.7 3m2 [facility] Comment:Abnormal if <60. If patient is -[place]ruguayan, multiply the result by 1.21. ANION GAP 17 10 - 20 mmol/L [facility] Blood 09/02/2017 8:20 AM EST 09/02/2017 11:12 AM EST us Angel Mariano MD LAB BLOOD ORDERABLES Final Resul t Performing Organization Address City/State/[facility] Co de Phone Number [facility] [address] [place] [address] * (ABNORMAL) CBC (09/02/2017 8:20 AM EST) WBC 7.10 3.40 - 11.20 K/uL [facility] RBC 4.35 3.80 - 4.80 M/uL [facility] HGB 11.0(L) 12.0 - 15.0 g/dL [facility] HCT 35.2(L) 36.0 - 46.0 % [facility] PLT 398 130 - 400 K/uL [facility] MCV 80.9 79.0 - 98.0 fL [facility] MCH 25.3(L) 27.0 - 34.8 pg [facility] MCHC 31.3(L) 31.5 - 36.0 g/dL [facility] RDW 16.2(H) 10.8 - 14.6 % [facility] MPV 9.8 9.4 - 12.4 fl [facility] NRBC 0.00 /100 WBCs [facility] ABSOLUTE NRBC 0.00 K/uL [facility] Blood 09/02/2017 8:20 AM EST 09/02/2017 11:12 AM EST us Angel Mariano MD LAB BLOOD ORDERABLES Final Resul t [address] [address] documented in this encounter Visit Diagnoses Diagnosis Examination- Primary Unspecified examination documented in this encounter Care Teams Thread Clipper Relationship Specialty Start Date End Date Unknown, Unknown, MD PCP - General 09/02/17 09/10/17 Angel Mariano MD [email or web address] PCP - General Family Medicine 09/11/17 documented as of this encounter Additional Source Comments The information contained in this document represents components of the legal health record. It is not the complete legal health record.[facility]
--- OUTSIDE RECORDS SUMMARY | 2025-04-06 12:11 | XMS_ITS | Encounter Summary ---
Author Organization [facility] Address [address] [place] [address] Phone Care Team Providers Care Grab Operator Name Role Phone Unknown, Unknown Primary Care Provider Angel Espinoza MD Primary Care Provider [phone] Encounter Details Date Type Department Care Team (Late st Contact Info) Description 09/07/2017 Transcribe Orders [facility] Specimen Processing [address] [place] [address] Angel Mariano MD [address] [place] [address] [address] [place] [address] [email or web address] Fever, unspecified fever cause (Primary [...] PM EST) Influenza A Ag Negative Negative [facility] Influenza B Ag Negative Negative [facility] Other (Nasal) 09/07/2017 12: 00 PM EST 09/07/2017 3:52 PM EST us Angel Mariano MD MICROBIOLOGY - GENERAL ORDERABLE S Final Result [facility] [address] [place] [address] documented in this encounter Visit Diagnoses Diagnosis Fever, unspecified fever cause- Primary Malaise Other malaise and fatigue documented in this encounter Care Teams Grab Operator Relationship Specialty Start Date End Date Unknown, Unknown, MD PCP - General 09/02/17 09/10/17 Angel Mariano MD [email or web address] PCP - General Family Medicine 09/11/17 documented as of this encounter Additional Source Comments The information contained in this document represents components of the legal health record. It is not the complete legal health record.[facility]
--- OUTSIDE RECORDS SUMMARY | 2025-04-06 12:11 | XMS_ITS | Clinical Summary ---
Author Organization [facility] Address [address] [place] [address] Phone Care Team Providers Care Box Maker Name Role Phone Angel Mariano MD Primary Care Provider [phone] Encounters Date Type Department Care Team Description 01/27/2025 Refill [facility] at [address] [place] [address] Stiven Luna PA Medication Refill from Last 3 Months Social History Tobacco Use Types Packs/Day Years Used Date Smoking Tobacco: Never Assessed Education Answer Date Recorded Are you interested in more education? Not on manasa e 09/07/2024 Are you concerned about learning? Not on file 09/07/2024 No 09/07/2024 No 09/07/2024 Digital Access Answer Date Recorded No 09/07/2024 No 09/07/2024 Reliable internet access at home? Not on file 09/07/2024 Device with a working camera? Not on file Comments Unknown Sex and Gender Information Value Date Recorded Sex Assigned at Not on file Legal Sex Female 10:32 AM EST Gender Identity Not on file Sexual Orientation Not on file Plan of Treatment Health Maintenance Due Date Last Done Comments LIPID PANEL 1970 DEPRESSION SCREENING 1982 SMOKING Hx and SMOKELESS TOBACCO SCREENING 1983 HEPATITIS C SCREENING 02/13/1988 HIV ONE-TIME SCREENING (18-65 YEARS) 02/13/1988 PAP SMEAR 1991 MAMMOGRAM 2010 COLOGUARD 2015 COLONOSCOPY 2015 COLORECTAL CANCER SCREENING 2015 FIT TEST 2015 FOBT 2015 SIGMOIDOSCOPY 2015 VIRTUAL COLONOSCOPY 2015 PNEUMOCOCCAL VACCINES (50+ years) (2 of 2 - PCV) 02/13/2020 05/21/2016, 02/01/2015 ZOSTER VACCINES (1 of 2) 02/13/2020 INFLUENZA VACCINE (#1) 2025 0, 07/14/2019, 04/16/2018, Additional history exists COVID-19 VACCINE (3 - season) 2025 11/16/2020, 10/26/2020 Adult Td,Tdap Booster 06/21/2026 06/21/2016 HEPATITIS A VACCINES Aged Out No long er eligible based on patient's age to complete this topic HIB VACCINES Aged Out No longer eligi ble based on patient's age to complete this topic MENINGOCOCCAL VACCINES (ACWY) Aged Out No longer eligible based on patient's age to complete this topic MENINGOCOCCAL VACCINES (B) Aged Out N o longer eligible based on patient's age to complete this topic Medical Devices Not on file Insurance [facility] MEDICARE PART A & [place] & [place] & [place] & [place] & [place] & B Care Teams Box Maker Relationship Specialty Start Date End Date Angel Mariano MD [email or web address] PCP - General Family Medicine 09/11/17 Additional Source Comments The information contained in this document represents components of the legal health record. It is not the complete legal health record.[facility]
--- OUTSIDE RECORDS SUMMARY | 2025-04-06 12:11 | XMS_ITS | Encounter Summary ---
Author Organization [facility] Address [address] [place] [address] Phone Care Team Providers Care Bi Lead Name Role Phone Angel Mairano MD Primary Care Provider Reason for Visit * Reason Comments Medication Refill Encounter Details Date Type Department Care Team ([facility] st Contact Info) Description 01/27/2025 Refill [facility] at [address] [place] [address] Stiven Luna PA [address] [place] [address] Medication Refill Social History Tobacco Use Types Packs/Day Years [...] on filedocumented in this encounter Care Teams Bi Lead Relationship Specialty Start Date End Date Angel Mariano MD [email or web address] PCP - General Family Medicine 09/11/17 documented as of this encounter Additional Source Comments The information contained in this document represents components of the legal health record. It is not the complete legal health record.[facility]
--- OUTSIDE RECORDS SUMMARY | 2025-04-06 12:11 | XMS_ITS | Clinical Summary ---
Author Organization [facility] [address] [place] [address] [place] [id number] Phone Care Team Providers Care Regional Liaison Name Role Phone Lisa Santos MD Primary Care Provider [phone] Allergies Active Allergy Reactions Criticality Noted Date [...] time each day. 2 Active sodium chloride (Brinklow Saline) 0.65 % nasal drops 3 Drops by Each Nare route 3 times daily. 1 Active tiZANidine (ZANAFLEX) 2 mg capsule Take 1 capsule by mouth at bedtime as needed for Muscle spasms. 1 Active coenzyme Q-10 10 mg capsule Take by mouth. 7 Active Active Problems Problem Noted Date Diagnosed Date Ankylosing spondylitis ([facility] V24, [facility] V28 ) 08/07/2024 Overview (08/07/2024): Onset ~ : SI joint fusion, fused LS and T spine Humira started December 2015- held in the summer due to dental problems Episode of Iritis - 05/23 Hepatic steatosis 08/07/2024 Morbid obesity with BMI of 4 0.0-44.9, adult ([facility] V24, [facility] V28) 08/07/2024 Chronic rhinitis 09/23/2019 Vitamin B12 deficiency 05/20/2019 Snoring 01/05/2019 Overview (08/07/2024): 12/2018 Home Sleep Study did not reveal sleep apnea or nocturnal hypoxia. 04/2019 Diagnostic polysomnogram did not reveal ELIJAH or nocturnal hypoxia. Crohn's disease of large int estine without complication ([facility] V24, [facility] V28) 08/11/2018 RLS (restless legs syndrome) 05/28/2018 Thyroid nodule 12/10/2017 Fracture of lumbar spine ([facility] V24, [facility] V 28) 08/05/2017 Overview (08/07/2024): Macario fracture Sternal fracture 08/05/2017 Fracture of rib of left side 08/05/2017 Overview (08/07/2024): Left 7th and 8th fracture Lung nodules 05/05/2016 Overview (08/07/2024): on imaging at [place], followed by Dr. Gaytan. CAT scan 04/23/17: [...] ascending colitis on bxy ESOPHAGOGASTRODUODENOSCOPY 09/12/2015 PROCEDURE: OR ESOPHAGOGASTRODUODENOSCOPY TRANSORAL DIAGNOSTIC; COMMENT: Normal with nl duodenal, antral and GE junction bxys BREAST BIOPSY 06/25/2018 Left PROCEDURE: BX BREAST; PERC NEEDLE CORE W/IMAG GUID; COMMENT: BENIGN FIBROADENOMATOUS CHANGES. OTHER SURGICAL HISTORY 02/2021 PROCEDURE: MAMMOGRAM, SCREENING, BOTH BREASTS Medical History Medical History Date Comments Depression with anxiety 10/06/2015 DX:Depre ssion with anxiety; COMMENT: [facility] - therapist Khushi triyohana to see her once in a week Hypercholesteremia 10/06/2015 DX:Hyperchole steremia Asthma 10/06/2015 DX:Asthma; COMME NT: Dr. Gaytan Ulcerative colitis ([facility] V24, [facility] V28) DX:Ulcerative colitis (HCC); COMMENT: Dr. Baez Ankylosing spondylitis ([facility] V24, [facility] V28) DX:Ankylosing spondylitis (H CC); COMMENT: Dr. Mckay Hepatic steatosis DX:Hepatic sher atosis Pelvic pain 11/24/2015 DX:Pelvic pain Iron deficiency anemia 11/25/2015 DX:Iron d eficiency anemia Vitamin D deficiency 11/25/2015 DX:Vitamin D deficiency Disc disease, degenerative, cervical 12/13/2015 DX:Disc disease, degenerative, cervical Lung nodules 05/2016 DX:Lung nodules; COMMENT: on imaging at [place], followed by Dr. Gaytan. Fracture of rib of left side 08/2017 DX: Fracture of rib of left side; COMMENT: Left 7th and 8th fracture Fracture of lumbar spine (CM S/HCC V24, [facility] V28) 08/2017 DX:Fracture of lumbar spine (HCC); COMMENT: Macario fracture Sternal fracture 08/2017 DX:Sternal frac ture Crohn's disease (CMS/HCC V24 , [facility] V28) DX:Crohn's disease (HCC) Family History Medical [...] 07/14/2022 Social Influencers of Health Screening 07/14/2022 Depression Screening 08/05/2024 Cholesterol Screening (Lipid Panel) 08/21/2024 08/21/2019 Hypertension/CHF/CAD Annual BMP Blood Test 09/03/2024 12/06/2020 COVID-19 Vaccine ( season) 2025 06/02/2021, 11/16/2020, 10/26/2020 Influenza Vaccine (#1) 2025 , 05/31/2022, 05/05/2021, [...] is recommended in 1 year. MAMMO LOCATION: [facility], [address] [place] [address], [id number], . -------- FINAL REPORT -------- Dictated By: Roselyn Martinez Dictated Date: 09/03/2024 08:19 ET Assigned Physician: Roselyn Martinez Reviewed and Electronically Signed By: Roselyn Martinez Signed Date: 09/03/2024 08:24 ET Workstation ID: [id number] Transcribed By: Self Edit Transcribed Date: 09/03/2024 [...] is recommended in 1 year. MAMMO LOCATION: [facility], [address] [place] [address], [id number], . -------- FINAL REPORT -------- Dictated By: Roselyn Martinez Dictated Date: 09/03/2024 08:19 ET Assigned Physician: Roselyn Martinez Reviewed and Electronically Signed By: Roselyn Martinez Signed Date: 09/03/2024 08:24 ET Workstation ID: [id number] Transcribed By: Self Edit Transcribed Date: 09/03/2024 08:19 ET Lisa Santos MD IMG BI PROCEDURES Final Result * Annual BMP Blood Test (12/06/2020) [facility] Annual BMP Blood Test abstracted [facility] Provider HEALTH MAINTENANCE Final Result * Hepatitis C Screening (12/06/2020) [facility] Hepatitis C Screening abstracted Result [facility] Provider HEALTH MAINTENANCE Final Result * (ABNORMAL) Lipid panel (08/21/2019) [facility] LDL/HDL Ratio 4 0 - 4 Triglycerides 186(A) 0 - 150 mg/dL Cholesterol 198 0 - 200 mg/dL HDL 56 >=40 mg/dL LDL Cholesterol 105(A) 0 - 100 mg/dL Blood Venous blood specimen / Unknown Result [facility] Provider LAB BLOOD ORDERABLES Micaela l Result * HIV Screening (01/10/2018) [facility] HIV Screening abstracted Result [facility] Provider HEALTH MAINTENANCE Final Result * Cervical Cancer Screening: HPV (12/12/2015) [facility] Cervical Cancer Screening: HPV abstracted, negative us Historical Provider HEALTH MAINTENANCE Final Result * Colonoscopy (09/12/2015) Colonoscopy no interpretation , abstracted Anatomical Region Laterality Modality Other us Historical Provider HEALTH MAINTENANCE Final Result from Last 3 Months or Most Recently Relevant to Health Maintenance Insurance [facility] MEDIC[facility] Member Subscriber Plan / Payer (Ef fective 2016-Present) Name:Josselin Harrington Relation to Subscriber:Self Name:Josselin Harrington Payer ID:[id number] Group ID:[id number] Type:Not on file Address: [place] [address] [address] [id number] Care Teams Regional Liaison Relationship Specialty Start Date End Date Lisa Santos MD [address] [place] [address] PCP - General Internal Medicine 02/15/22
== END 2025-04-06 11:08 | disposition home or self-care (01) ==
LOC: HO.HOS 10:42
PROVIDERS: PCP Family Medicine; Visit Provider Orthopaedic Surgery
DX: M17.0 Bilateral primary osteoarthritis of knee (principal); M25.561 Pain in right knee; M25.562 Pain in left knee
CPT/HCPCS: 20610; 99213

== ENCOUNTER → 2025-04-06 10:40 | Outpatient (BNVA) | payer OTHER, SELFPAY | PROVIDERS: PCP Family Medicine; Visit Provider Orthopaedic Surgery | DX: M17.11 Unilateral primary osteoarthritis, right knee (principal); M17.12 Unilateral primary osteoarthritis, left knee; M25.561 Pain in right knee; M25.562 Pain in left knee | CPT/HCPCS: 20610; 99212; J2003; J7318 ==

== ENCOUNTER 2025-04-22 11:58 | Outpatient (AMB) | payer OTHER, SELFPAY ==
--- NOTE | 2025-04-22 12:01 | MHC.PC.OV ---
Vital Signs 04/22/25 12:13 04/22/25 12:50 Height 5 ft Weight 210 lb 8 oz BMI 41.1 BP 152/75 H 136/80 Blood Pressure Location Rt brachial Lt brachial Position Sitting Sitting Respiration 16 Pulse 91 Pulse Source Pulse Oximeter Temp 98.2 F Temp Source Oral Pulse Oximetry (%) 96 Oxygen Delivery Method Room Air Intake Visit Reasons: f/u pre-diabetes, chronic conditions Intake Note: patient here for follow up on pre-diabetes and chronic conditions Transportation Planning Technician Required: No Is last menstrual period known: No Post menopausal: No Patient : No Allergies Penicillins (PENICILLINS) Allergy (Severe, Verified 04/22/25 12:04) ANAPHYLAXIS simvastatin Allergy (Mild, Verified 04/22/25 12:04) weird feeling ibuprofen Adverse Reaction (Intermediate, Verified 04/22/25 12:04) stomach upset, irritates [facility]'s Medication List - Last Reconciled 04/22/25 by Layton Ward MD acetaminophen ER (Tylenol 8 Hour) 1,300 mg PO Q12H PRN adalimumab (Humira(CF) Pen) 40 mg subcut Q2W albuterol sulfate 2.5 mg (3 mL) inhalation Q4-6H PRN 30 days albuterol sulfate 90 mcg/actuation 2 puffs inhalation QID PRN alendronate 70 mg PO QWEEK 28 days azelastine intranasal budesonide 32 mcg/actuation 1 spray intranasal DAILY celecoxib 100 mg PO BID PRN 30 days cholecalciferol (vitamin D3) 50 mcg PO DAILY 3 months clotrimazole 1% 1 appful vaginal BEDTIME PRN coenzyme Q10 (Co Q-10) 100 mg PO DAILY cranberry extract 250 mg PO DAILY cyanocobalamin (vitamin B-12) 1,000 mcg PO DAILY 30 days diclofenac sodium 1% (Arthritis Pain (diclofenac)) 4 grams topical QID 30 days docusate sodium 200 mg (2 x 100 mg) PO BID epinephrine (EpiPen 2-Isma) 0.3 mg (0.3 mL) IM Q10M PRN estradiol 0.01%(0.1mg/gram) Start with application daily for 2 weeks. pea-sized to urethra 3 times a week following 30 days fluticasone propion-salmeterol 500-50 mcg/dose (Advair Diskus) 1 inh inhalation Q12H lamotrigine (Lamictal) 100 mg PO DAILY loratadine 10 mg PO DAILY 90 days lorazepam 0.5 mg PO BID PRN mesalamine 1,200 mg (3 x 400 mg) PO BID montelukast 10 mg PO DAILY nystatin 5 mL PO DAILY 10 days nystatin 5 mL PO DAILY 10 days nystatin-triamcinolone 100,000-0.1 unit/g-% 1 appl topical TID olopatadine 0.7% (Pataday Once Daily Relief) 1 drp ophthalmic (eye) DAILY PRN omeprazole 20 mg PO DAILY rosuvastatin 40 mg PO DAILY tizanidine 2 mg PO TID PRN 30 days Tobacco use date assessed: 04/22/25 Dental Screening Dental Screen Date: 04/22/25 Did you have a dental visit in the last 12 months?: No Did you have a dental problem in the last 6 months where you did not have access to dental care?: No Was dental information given to patient?: Patient has dentist HPI f/u pre-diabetes, chronic conditions HPI Details 55 y/o female presents to f/u pre-diabetes, chronic conditions. Last A1c 01/14/25 6.2%. A1c today 04/22/25 6.4%. Reviewed labs with pt. Has been following up with Dr. Ponce, orthopedics for her osteoarthritis of her knees. Complaints of a rash on her groin. HPI Comments History of Present Illness Details Documentation assistance for Layton Ward MD, was provided by Jeyson Aviles, Urban Planning Teacher on at 12:13 PM EST. I, Dr. Ward, have read, observed, and verified documentation. [facility] Medical History Tubular adenoma Chronic idiopathic constipation Crohn disease Unspecified asthma, uncomplicated Dysuria Surgical History Hx of colonoscopy History of esophagogastroduodenoscopy (EGD) No pertinent past surgical history Family History Father Suicide Mother Hypertension Diabetes Paternal Grandmother Stroke Brother In good health Sister In good health Social History (Reviewed 03/24/25 @ 14:47 by FANNIE Garland Housing: Other Housing Other:: mobile home Alcohol intake: current Alcohol intake frequency: does not drink Patient Tobacco Use Status: Never used Tobacco e-Cigarette/Vaping Use: Never Used Second Hand Smoke Exposure: Yes service: No Current occupational status: disabled Current occupational exposures/hazards: No Cognitive needs: No Hearing needs: No Vision needs: No Questionnaire Thrive Questionnaire Date Thrive assessed: 08/12/24 I am a: Patient What is your living situation today?: I choose not to answer this question Within the past 12 months, did the food you bought not last and you didn't have the money to get more?: I choose not to answer this question Within the past 12 months, did you worry whether your food would run out before you got money to buy more?: I choose not to answer this question Do you have trouble paying for medicines?: I choose not to answer this question Do you have trouble getting transportation to medical appointments?: I choose not to answer this question Do you have trouble paying your heating and electricity bill?: I choose not to answer this question Do you have trouble taking care of your child, family member or friend?: I choose not to answer this question Do you have trouble with day-to-day activities such as bathing, preparing meals, shopping, managing finances, etc.?: I choose not to answer this question Are you currently unemployed and looking for a job?: I choose not to answer this question Are you interested in more education?: I choose not to answer this question Please select the resources that you would like help with: None Currently or been in a relationship where the following occur: No concerns reported THRIVE Score: 0 ZENY-7 AMB Questionnaire ZENY-7 Date ZENY - 7 assessed: 08/12/24 Source: Developed by Drs. Bernardino Ahumada, Peri Valencia, Gordy Victoria and colleagues, with an educational hakeem from [employer]. Review of Systems Const Denies chills, Denies fatigue, Denies fever(s), Denies headache(s) and Denies weakness ENT Denies dizziness and Denies headache(s) Card Denies dyspnea Resp Denies cough, Denies dyspnea, Denies wheezing and Denies other (shortness of breath) Musc Denies numbness and Denies tingling Neuro Denies dizziness, Denies headache(s), Denies numbness, Denies tingling and Denies weakness Psych Denies anxiety and Denies depression Endo Denies fatigue Aller/Immun Denies wheezing Physical exam (Primary Care) Tobacco/Smoking Status: Tobacco use Status Tobacco use date assessed 01/24/24 04/22/25 12:01 Patient Tobacco Use Status Never used Tobacco 04/22/25 12:01 e-Cigarette/Vaping Use Never Used 04/22/25 12:01 Thrive Assessment: Date of Thrive Assessment Date Thrive assessed 08/12/24 04/22/25 12:01 Currently or been in a relationship where the following occur: No concerns reported Const General: well developed; No acute distress Nutritional Appearance: well nourished and obese morbidly obese Orientation/consciousness: patient oriented x3 HENMT Head: Yes normocephalic and Yes atraumatic Eyes General: appearance normal, both eyes and all related structures Pupils: Equal, round and reactive pupils present EOM: EOMs intact bilaterally Resp Effort & Inspection: normal respiratory effort Neuro General: patient oriented x3 and gait normal Cranial nerves: Yes Equal, round and reactive pupils present Psych Affect: normal affect Coding Level of Care Code Est Pt Level 5 (05573) Diagnoses Pre-diabetes R73.03 Osteoarthritis of knees, bilateral M17.0 Rash R21 Asthma J45.909 Allergic rhinitis J30.9 Elevated liver enzymes R74.8 Assessment & Plan Assessment & Plan (1) Pre-diabetes: Code(s): R73.03 - Prediabetes Category: Medical Plan: A1c has climbed to 6.4% - top of pre diabetes range We discussed decreasing sugars and starches in diet Encouraged weight loss Will continue to monitor We discussed that if A1c continues to rise, we should start medication to prevent further increases in blood sugars (2) Osteoarthritis of knees, bilateral: Code(s): M17.0 - Bilateral primary osteoarthritis of knee Category: Medical Plan: Followed by Dr. Ponce Recent physical supplementation injection at left knee was very helpful Still has right knee pain and swelling - Dr Ponce plans aspiration perhaps injection therapy afterwards. Continue using knee brace Continue ice Can try limited doses of Celebrex (3) Rash: Code(s): R21 - Rash and other nonspecific skin eruption Category: Medical Plan: Nystatin-triamcinolone cream had helped Rash has returned Refilled this (4) Asthma: Code(s): J45.909 - Unspecified asthma, uncomplicated Category: Medical Plan: Lungs sound clear Continue inhaled medications Follow-up with Pulmonary Medicine as recommended She does note some secretions in throat and mild cough This appears to be secondary to allergic rhinitis-see below (5) Allergic rhinitis: Code(s): J30.9 - Allergic rhinitis, unspecified Category: Medical Plan: Ongoing nasal symptoms and eye in throat irritation No evidence of infection Continue Claritin Recommended hypoallergenic bedding covers Continue HEPA filter (6) Elevated liver enzymes: Code(s): R74.8 - Abnormal levels of other serum enzymes Category: Medical Plan: Ongoing elevated liver enzymes Ultrasound of abdomen did not show any mass liver Encouraged weight loss Will continue to monitor Orders: Orders Comprehensive [place]. Panel Fast Today Z00.00 - Encounter for general adult medical examination without abnormal findings Complete Blood Count Auto Diff Today Z00.00 - Encounter for general adult medical examination without abnormal findings Microalbumin, Random (w Creat) Today I10 - Essential (primary) hypertension Lipid Panel Today Z00.00 - Encounter for general adult medical examination without abnormal findings TSH reflex Free T4 Today Z00.00 - Encounter for general adult medical examination without abnormal findings UA CC w/rflx Micro + Cult Today Z00.00 - Encounter for general adult medical examination without abnormal findings Vitamin B12 and Folate Today E53.8 - Deficiency of other specified B group vitamins Medications: Refilled nystatin-triamcinolone 100,000-0.1 unit/g-% 1 appl topical TID 30 grams 0RF
[2025-04-22 12:13] VITALS: BP 152/75; PULSE 91; RESP 16; TEMP 36.8; O2SAT 96; BMI 41.1
[2025-04-22 12:50] VITALS: BP 136/80
--- OUTSIDE RECORDS SUMMARY | 2025-04-22 14:17 | XMS_ITS | Encounter Summary ---
Author Organization [facility] Address [address] [place] [id number] Phone Care Team Providers Care Youth Minister Name Role Phone Angel Mariano MD Primary Care Provider [phone] Reason for Visit * Reason Comments Medication Refill Encounter Details Date Type Department Care Team ([facility] st Contact Info) Description 01/27/2025 Refill [facility] at [address] [place] [address] Stiven Luna [place] [address] [place] [address] [email or web address] Medication Refill Social History Tobacco Use Types [...] on filedocumented in this encounter Care Teams Youth Minister Relationship Specialty Start Date End Date Angel Mariano MD [email or web address] PCP - General Family Medicine 09/11/17 documented as of this encounter Additional Source Comments The information contained in this document represents components of the legal health record. It is not the complete legal health record.[facility]
--- OUTSIDE RECORDS SUMMARY | 2025-04-22 14:17 | XMS_ITS | Clinical Summary ---
Author Organization [address] Address [address] [place] [id number] Phone Care Team Providers Care Chair Spring Assembler Name Role Phone Lisa Santos MD Primary Care Provider [phone] Allergies Active Allergy Reactions Criticality Noted Date [...] time each day. 2 Active sodium chloride ([place] Saline) 0.65 % nasal drops 3 Drops by Each Nare route 3 times daily. 1 Active tiZANidine (ZANAFLEX) 2 mg capsule Take 1 capsule by mouth at bedtime as needed for Muscle spasms. 1 Active coenzyme Q-10 10 mg capsule Take by mouth. 7 Active Active Problems Problem Noted Date Diagnosed Date Ankylosing spondylitis ([facility] V24, [facility] V28 ) 08/07/2024 Overview (08/07/2024): Onset ~ : SI joint fusion, fused LS and T spine Humira started December 2015- held in the summer due to dental problems Episode of Iritis - 05/23 Hepatic steatosis 08/07/2024 Morbid obesity with BMI of 4 0.0-44.9, adult ([facility] V24, [facility] V28) 08/07/2024 Chronic rhinitis 09/23/2019 Vitamin B12 deficiency 05/20/2019 Snoring 01/05/2019 Overview (08/07/2024): 12/2018 Home Sleep Study did not reveal sleep apnea or nocturnal hypoxia. 04/2019 Diagnostic polysomnogram did not reveal ELIJAH or nocturnal hypoxia. Crohn's disease of large int estine without complication ([facility] V24, [facility] V28) 08/11/2018 RLS (restless legs syndrome) 05/28/2018 Thyroid nodule 12/10/2017 Fracture of lumbar spine ([facility] V24, [facility] V 28) 08/05/2017 Overview (08/07/2024): Macario fracture Sternal fracture 08/05/2017 Fracture of rib of left side 08/05/2017 Overview (08/07/2024): Left 7th and 8th fracture Lung nodules 05/05/2016 Overview (08/07/2024): on imaging at [facility], followed by Dr. Gaytan. CAT scan 04/23/17: [...] ascending colitis on bxy ESOPHAGOGASTRODUODENOSCOPY 09/12/2015 PROCEDURE: FL ESOPHAGOGASTRODUODENOSCOPY TRANSORAL DIAGNOSTIC; COMMENT: Normal with nl duodenal, antral and GE junction bxys BREAST BIOPSY 06/25/2018 Left PROCEDURE: BX BREAST; PERC NEEDLE CORE W/IMAG GUID; COMMENT: BENIGN FIBROADENOMATOUS CHANGES. OTHER SURGICAL HISTORY 02/2021 PROCEDURE: MAMMOGRAM, SCREENING, BOTH BREASTS Medical History Medical History Date Comments Depression with anxiety 10/06/2015 DX:Depre ssion with anxiety; COMMENT: [facility] - therapist Khushi triyohana to see her once in a week Hypercholesteremia 10/06/2015 DX:Hyperchole steremia Asthma 10/06/2015 DX:Asthma; COMME NT: Dr. Gaytan Ulcerative colitis ([facility] V24, [facility] V28) DX:Ulcerative colitis (HCC); COMMENT: Dr. Baez Ankylosing spondylitis ([facility] V24, [facility] V28) DX:Ankylosing spondylitis (H CC); COMMENT: Dr. Mckay Hepatic steatosis DX:Hepatic sher atosis Pelvic pain 11/24/2015 DX:Pelvic pain Iron deficiency anemia 11/25/2015 DX:Iron d eficiency anemia Vitamin D deficiency 11/25/2015 DX:Vitamin D deficiency Disc disease, degenerative, cervical 12/13/2015 DX:Disc disease, degenerative, cervical Lung nodules 05/2016 DX:Lung nodules; COMMENT: on imaging at [facility], followed by Dr. Gaytan. Fracture of rib of left side 08/2017 DX: Fracture of rib of left side; COMMENT: Left 7th and 8th fracture Fracture of lumbar spine (CM S/HCC V24, [facility] V28) 08/2017 DX:Fracture of lumbar spine (HCC); COMMENT: Macario fracture Sternal fracture 08/2017 DX:Sternal frac ture Crohn's disease (CMS/HCC V24 , [facility] V28) DX:Crohn's disease (HCC) [...] is recommended in 1 year. MAMMO LOCATION: [facility], [address] [place] [address], [address], . -------- FINAL REPORT -------- Dictated By: Roselyn Martinez Dictated Date: 09/03/2024 08:19 ET Assigned Physician: Roselyn Martinez Reviewed and Electronically Signed By: Roselyn Martinez Signed Date: 09/03/2024 08:24 ET Workstation ID: [id number] Transcribed By: Self Edit Transcribed Date: 09/03/2024 [...] is recommended in 1 year. MAMMO LOCATION: [facility], [address] [place] [address], [address], . -------- FINAL REPORT -------- Dictated By: Roselyn Martinez Dictated Date: 09/03/2024 08:19 ET Assigned Physician: Roselyn Martinez Reviewed and Electronically Signed By: Roselyn Martinez Signed Date: 09/03/2024 08:24 ET Workstation ID: [id number] Transcribed By: Self Edit Transcribed Date: 09/03/2024 08:19 ET Lisa Santos MD IMG BI PROCEDURES Final Result * Annual BMP Blood Test (12/06/2020) [facility] Annual BMP Blood Test abstracted [facility] Provider HEALTH MAINTENANCE Final Result * Hepatitis C Screening (12/06/2020) [facility] Hepatitis C Screening abstracted Result [facility] Provider HEALTH MAINTENANCE Final Result * (ABNORMAL) Lipid panel (08/21/2019) [facility] LDL/HDL Ratio 4 0 - 4 Triglycerides 186(A) 0 - 150 mg/dL Cholesterol 198 0 - 200 mg/dL HDL 56 >=40 mg/dL LDL Cholesterol 105(A) 0 - 100 mg/dL Blood Venous blood specimen / Unknown Result [facility] Provider LAB BLOOD ORDERABLES Miceala l Result * HIV Screening (01/10/2018) [facility] HIV Screening abstracted Result [facility] Provider HEALTH MAINTENANCE Final Result * Cervical Cancer Screening: HPV (12/12/2015) [facility] Cervical Cancer Screening: HPV abstracted, negative us Historical Provider HEALTH MAINTENANCE Final Result * Colonoscopy (09/12/2015) Colonoscopy no interpretation , abstracted Anatomical Region Laterality Modality Other us Historical Provider HEALTH MAINTENANCE Final Result from Last 3 Months or Most Recently Relevant to Health Maintenance Insurance [facility] MEDIC[facility] Member Subscriber Plan / Payer (Ef fective 2016-Present) Name:Josselin Harrington Relation to Subscriber:Self Name:Josselin Harrington Payer ID:[id number] Group ID:[id number] Type:Not on file Address: [place] [address] [address] [address] Care Teams Chair Spring Assembler Relationship Specialty Start Date End Date Lisa Santos MD [address] [place] [address] PCP - General Internal Medicine 02/15/22
--- OUTSIDE RECORDS SUMMARY | 2025-04-22 14:17 | XMS_ITS | Encounter Summary ---
Author Organization [facility] Address [address] [place] [address] Phone Care Team Providers Care Relay Tester Helper Name Role Phone Unknown, Unknown Primary Care Provider Angel Espinoza MD Primary Care Provider [phone] Encounter Details Date Type Department Care Team (Late st Contact Info) Description 09/02/2017 Transcribe Orders [facility] Specimen Processing [address] [place] [address] Angel Mariano MD [address] [facility] [address] [place] [address] [email or web address] Examination (Primary Dx) Social History Tobacco Use [...] EST) SODIUM 141 133 - 146 mmol/L [facility] POTASSIUM 4.7 3.3 - 5.1 mmol/L [facility] CHLORIDE 100 96 - 108 mmol/L [facility] CO2 29 21 - 35 mmol/L [facility] BUN 12 6 - 19 mg/dL [facility] CREATININE 0.50 0.5 - 1.5 mg/dL [facility] GLUCOSE 85 70 - 99 mg/dL [facility] ALBUMIN 4.2 3.9 - 4.8 g/dL [facility] TOTAL PROTEIN 7.1 6.5 - 8.0 g/dL [facility] CALCIUM 9.5 8.4 - 10.3 mg/dL [facility] ALKALINE PHOSPHATASE 118(H) 39 - 117 U/L [facility] TOTAL BILIRUBIN 0.4 0 - 1.2 mg/dL [facility] AST 19 0 - 37 U/L [facility] ALT 23 0 - 40 U/L [facility] GLOBULIN 2.9 1 - 4.8 g/dL [facility] EGFR >60 60 - 1000 mL/min/1.7 3m2 [facility] Comment:Abnormal if <60. If patient is -Montenegrin, multiply the result by 1.21. ANION GAP 17 10 - 20 mmol/L [facility] Blood 09/02/2017 8:20 AM EST 09/02/2017 11:12 AM EST us Angel Mariano MD LAB BLOOD ORDERABLES Final Resul t Performing Organization Address City/State/[facility] Co de Phone Number [facility] [address] [place] [address] * (ABNORMAL) CBC (09/02/2017 8:20 AM EST) WBC 7.10 3.40 - 11.20 K/uL [facility] RBC 4.35 3.80 - 4.80 M/uL [facility] HGB 11.0(L) 12.0 - 15.0 g/dL [facility] HCT 35.2(L) 36.0 - 46.0 % [facility] PLT 398 130 - 400 K/uL [facility] MCV 80.9 79.0 - 98.0 fL [facility] MCH 25.3(L) 27.0 - 34.8 pg [facility] MCHC 31.3(L) 31.5 - 36.0 g/dL [facility] RDW 16.2(H) 10.8 - 14.6 % [facility] MPV 9.8 9.4 - 12.4 fl [facility] NRBC 0.00 /100 WBCs [facility] ABSOLUTE NRBC 0.00 K/uL [facility] Blood 09/02/2017 8:20 AM EST 09/02/2017 11:12 AM EST us Angel Mariano MD LAB BLOOD ORDERABLES Final Resul t [address] [address] documented in this encounter Visit Diagnoses Diagnosis Examination- Primary Unspecified examination documented in this encounter Care Teams Relay Tester Helper Relationship Specialty Start Date End Date Unknown, Unknown, MD PCP - General 09/02/17 09/10/17 Angel Mariano MD [email or web address] PCP - General Family Medicine 09/11/17 documented as of this encounter Additional Source Comments The information contained in this document represents components of the legal health record. It is not the complete legal health record.[facility]
--- OUTSIDE RECORDS SUMMARY | 2025-04-22 14:17 | XMS_ITS | Clinical Summary ---
Author Organization [facility] Address [address] [place] [address] Phone Care Team Providers Care Building Insulation Supervisor Name Role Phone Angel Mariano MD Primary Care Provider [phone] Encounters Date Type Department Care Team Description 01/27/2025 Refill [facility] at [address] [place] [address] Stiven Luna PA Medication Refill from Last [...] topic Medical Devices Not on file Insurance [facility] MEDICARE PART A & [place] & B Care Teams Building Insulation Supervisor Relationship Specialty Start Date End Date Angel Mariano MD [email or web address] PCP - General Family Medicine 09/11/17 Additional Source Comments The information contained in this document represents components of the legal health record. It is not the complete legal health record.[facility]
--- OUTSIDE RECORDS SUMMARY | 2025-04-22 14:17 | XMS_ITS | Encounter Summary ---
Author Organization [facility] Address [address] [place] [address] Phone Care Team Providers Care Industrial Equipment Wirer Name Role Phone Angel Mariano MD Primary Care Provider [phone] Encounter Details Date Type Department Care Team (Latest Contact Info) Description 09/11/2017 Transcribe Orders [facility] Specimen Processing [address] [place] [address] Angel Mariano MD 38 [facility], [address] [place] [address] [email or web address] Moderate persistent asthma, unspecified whether complicated (Primary [...] EST) WBC 3.31(L) 3.40 - 11.20 K/uL [facility] RBC 4.59 3.80 - 4.80 M/uL [facility] HGB 11.5(L) 12.0 - 15.0 g/dL [facility] HCT 35.5(L) 36.0 - 46.0 % [facility] PLT 358 130 - 400 K/uL [facility] MCV 77.3(L) 79.0 - 98.0 [facility] MCH 25.1(L) 27.0 - 34.8 pg [facility] MCHC 32.4 31.5 - 36.0 g/dL [facility] RDW 15.6(H) 10.8 - 14.6 % [facility] MPV 9.9 9.4 - 12.4 [facility] NRBC 0.00 /100 WBCs [facility] ABSOLUTE NRBC 0.00 K/uL [facility] Blood 09/11/2017 8:25 AM EST 09/11/2017 12:17 PM EST us Angel Mariano MD LAB BLOOD ORDERABLES Final Resul t Performing Organization Address City/[facility]/ZIP Co de Phone Number [address] [address] * (ABNORMAL) Basic metabolic panel (09/11/2017 8:25 AM EST) SODIUM 142 133 - 146 mmol/L [facility] CHLORIDE 101 96 - 108 mmol/L [facility] POTASSIUM 4.1 3.3 - 5.1 mmol/L [facility] CO2 26 21 - 35 mmol/L [facility] BUN 9 6 - 19 mg/dL [facility] CREATININE <0.50(L) 0.5 - 1.5 mg/dL [facility] GLUCOSE 96 70 - 99 mg/dL [facility] CALCIUM 9.2 8.4 - 10.3 mg/dL [facility] EGFR Test Not Performed. >60 mL/min/1.7 3m2 [facility] Comment:Abnormal if <60. If patient is -Nigerian, multiply the result by 1.21. ANION GAP 19 10 - 20 mmol/L [facility] Blood 09/11/2017 8:25 AM EST 09/11/2017 12:17 PM EST us Angel Mariano MD LAB BLOOD ORDERABLES Final Resul t Performing Organization Address City/[facility]/ZIP Co de Phone Number [address] [address] documented in this encounter Visit Diagnoses Diagnosis Moderate persistent asthma, unspecified whether complicated- Primary Essential hypertension, benign Hyperlipidemia, unspecified hyperlipidemia type documented in this encounter Care Teams Industrial Equipment Wirer Relationship Specialty Start Date End Date Angel Mariano MD [email or web address] PCP - General Family Medicine 09/11/17 documented as of this encounter Additional Source Comments The information contained in this document represents components of the legal health record. It is not the complete legal health record.[facility]
--- OUTSIDE RECORDS SUMMARY | 2025-04-22 14:17 | XMS_ITS | Encounter Summary ---
Author Organization [facility] Address [address] [facility] [address] [address] [facility] [address] [place] [address] Phone Care Team Providers Care Assembler Seat Name Role Phone Unknown, Unknown Primary Care Provider Angel Espinoza MD Primary Care Provider Encounter Details Date Type Department Care Team (Late st Contact Info) Description 09/07/2017 Transcribe Orders [facility] Specimen Processing [address] [place] [address] Angel Mariano MD [address] [place] [address] [address] [place] [address] [email or web address] Fever, unspecified fever cause (Primary Dx); [...] PM EST) Influenza A Ag Negative Negative [facility] Influenza B Ag Negative Negative [facility] Other (Nasal) 09/07/2017 12: 00 PM EST 09/07/2017 3:52 PM EST us Angel Mariano MD MICROBIOLOGY - GENERAL ORDERABLE S Final Result [facility] [address] [place] [address] documented in this encounter Visit Diagnoses Diagnosis Fever, unspecified fever cause- Primary Malaise Other malaise and fatigue documented in this encounter Care Teams Assembler Seat Relationship Specialty Start Date End Date Unknown, Unknown, MD PCP - General 09/02/17 09/10/17 Angel Mariano MD [email or web address] PCP - General Family Medicine 09/11/17 documented as of this encounter Additional Source Comments The information contained in this document represents components of the legal health record. It is not the complete legal health record.[facility]
== END 2025-04-22 12:44 | disposition home or self-care (01) ==
LOC: HO.HMCFM 11:59
PROVIDERS: PCP Family Medicine; Visit Provider Family Medicine
DX: R73.03 Prediabetes (principal); M17.0 Bilateral primary osteoarthritis of knee; R21 Rash and other nonspecific skin eruption; J45.909 Unspecified asthma, uncomplicated; J30.9 Allergic rhinitis, unspecified; R74.8 Abnormal levels of other serum enzymes

== ENCOUNTER → 2025-04-22 11:58 | Outpatient (BNVA) | payer OTHER, SELFPAY | PROVIDERS: PCP Family Medicine; Visit Provider Family Medicine | DX: R73.03 Prediabetes (principal); M17.0 Bilateral primary osteoarthritis of knee; R21 Rash and other nonspecific skin eruption; J45.909 Unspecified asthma, uncomplicated; R74.8 Abnormal levels of other serum enzymes; I10 Essential (primary) hypertension | CPT/HCPCS: 83036; 99212 ==

== ENCOUNTER 2025-04-28 14:37 | Outpatient (REF) | payer OTHER, SELFPAY ==
--- OUTSIDE RECORDS SUMMARY | 2024-06-19 09:40 | XMS_ITS ---
Author Organization Total [facility] Address [address] [place] [address] Care Team Providers Care Ecologist Name Role Phone BRITNEY STOREY Primary Care Provider Unavailab Debo Seymour Unavailable [phone] REASON FOR VISIT ULTRA - BLOATING PAIN Encounters Encounter Location Date Provider Diagnosis [facility] [address] [address] 06/19/2024 Debo Patel Plan Of Treatment Next Appt Details Provider Name:Debo head, 06/10/2025 02:40:00 PM, [address] [place] [address], [address] , [place], [address], Progress Notes * JAIME SÁNCHEZDOB:1970 (55 yo F)Acc No.[id number]:06/19/2024 PROGRESS NOTES Patient: JAIME CARVAJAL Appointment Provider: Jennifer Patel M.D. :1970 A ge:54 Y S ex:Female Date:06/19/2024 Address:[address] [place], [place] [phone] Pcp:BRITNEY STOREY Subjective: * Chief Complaints: * 1 . ULTRA - BLOATING PAIN. * Medical History: Objective: * Vitals: Assessment: Plan: * Treatment: * Images: Billing Information: * Visit Code: * Procedure Codes: * Electronic signature of Mary Patel MD on 04/28/2025 at 05:12 PM EDT Sign off status: Pending * Appointment Provider: Jennifer Patel M.D. Date: 08/19/2023 Generated for Jasmyn gordon/Linda/Gregorioitting on: 0 04/28/2025 05:12 PM EDT
--- OUTSIDE RECORDS SUMMARY | 2025-04-28 17:12 | XMS_ITS | Encounter Summary ---
Author Organization [facility] Address [address] [place] [address] Phone Care Team Providers Care Accountant Controller Name Role Phone Unknown, Unknown Primary Care Provider Angel Espinoza MD Primary Care Provider [phone] Encounter Details Date Type Department Care Team (Late st Contact Info) Description 09/02/2017 Transcribe Orders [facility] Specimen Processing [address] [place] [address] Angel Mariano MD [address] [facility] [address], [address] [place] [address] [email or web address] Examination (Primary Dx) Social History Tobacco Use [...] EST) SODIUM 141 133 - 146 mmol/L [facility] POTASSIUM 4.7 3.3 - 5.1 mmol/L [facility] CHLORIDE 100 96 - 108 mmol/L [facility] CO2 29 21 - 35 mmol/L [facility] BUN 12 6 - 19 mg/dL [facility] CREATININE 0.50 0.5 - 1.5 mg/dL [facility] GLUCOSE 85 70 - 99 mg/dL [facility] ALBUMIN 4.2 3.9 - 4.8 g/dL [facility] TOTAL PROTEIN 7.1 6.5 - 8.0 g/dL [facility] CALCIUM 9.5 8.4 - 10.3 mg/dL [facility] ALKALINE PHOSPHATASE 118(H) 39 - 117 U/L [facility] TOTAL BILIRUBIN 0.4 0 - 1.2 mg/dL [facility] AST 19 0 - 37 U/L [facility] ALT 23 0 - 40 U/L [facility] GLOBULIN 2.9 1 - 4.8 g/dL [facility] EGFR >60 60 - 1000 mL/min/1.7 3m2 [facility] Comment:Abnormal if <60. If patient is -Puerto Rican, multiply the result by 1.21. ANION GAP 17 10 - 20 mmol/L [facility] Blood 09/02/2017 8:20 AM EST 09/02/2017 11:12 AM EST us Angel Mariano MD LAB BLOOD ORDERABLES Final Resul t Performing Organization Address City/State/[facility] Co de Phone Number [facility] [address] [place] [address] * (ABNORMAL) CBC (09/02/2017 8:20 AM EST) WBC 7.10 3.40 - 11.20 K/uL [facility] RBC 4.35 3.80 - 4.80 M/uL [facility] HGB 11.0(L) 12.0 - 15.0 g/dL [facility] HCT 35.2(L) 36.0 - 46.0 % [facility] PLT 398 130 - 400 K/uL [facility] MCV 80.9 79.0 - 98.0 fL [facility] MCH 25.3(L) 27.0 - 34.8 pg [facility] MCHC 31.3(L) 31.5 - 36.0 g/dL [facility] RDW 16.2(H) 10.8 - 14.6 % [facility] MPV 9.8 9.4 - 12.4 fl [facility] NRBC 0.00 /100 WBCs [facility] ABSOLUTE NRBC 0.00 K/uL [facility] Blood 09/02/2017 8:20 AM EST 09/02/2017 11:12 AM EST us Angel Mariano MD LAB BLOOD ORDERABLES Final Resul t [address] [address] documented in this encounter Visit Diagnoses Diagnosis Examination- Primary Unspecified examination documented in this encounter Care Teams Accountant Controller Relationship Specialty Start Date End Date Unknown, Unknown, MD PCP - General 09/02/17 09/10/17 Angel Mariano MD [email or web address] PCP - General Family Medicine 09/11/17 documented as of this encounter Additional Source Comments The information contained in this document represents components of the legal health record. It is not the complete legal health record.[facility]
--- OUTSIDE RECORDS SUMMARY | 2025-04-28 17:12 | XMS_ITS | Encounter Summary ---
Author Organization [facility] Address [address] [facility] [address] [place] [address] Phone Care Team Providers Care Agency Owner Name Role Phone Angel Mariano MD Primary Care Provider [phone] Reason for Visit * Reason Comments Medication Refill Encounter Details Date Type Department Care Team ([facility] st Contact Info) Description 01/27/2025 Refill [facility] at [address] [place] [address] Stiven Luna PA [address] [place] [address] [email or web address] Medication Refill Social History Tobacco Use Types [...] on filedocumented in this encounter Care Teams Agency Owner Relationship Specialty Start Date End Date Angel Mariano MD [email or web address] PCP - General Family Medicine 09/11/17 documented as of this encounter Additional Source Comments The information contained in this document represents components of the legal health record. It is not the complete legal health record.[facility]
--- OUTSIDE RECORDS SUMMARY | 2025-04-28 17:12 | XMS_ITS | Patient Health Record ---
Author Organization [facility] Address [address] [place] [address] Care Team Providers Care Applications Administrator Name Role Phone Bindu Sanders MD Primary [...] Risk Notes Problem Liver function tests abnormal ([id number]) Nonspecific abnormal results of liver function study [...] OF [address] A[place] SANCHEZ [id number] Josselin Harrington Self - patient is the insured MEDICAID OF [facility] [address] [place] [address] [id number] Josselin Harrington Self - patient is the insured Medical (General) History Medical History History ICD Code back and hip pain following a fall hypertension depression anxiety esophageal reflux elevated lipids low vitamin D level
--- OUTSIDE RECORDS SUMMARY | 2025-04-28 17:12 | XMS_ITS | Encounter Summary ---
Author Organization [facility] Address [address] [facility] [address] [place] [address] Phone Care Team Providers Care Loan Originator Name Role Phone Unknown, Unknown Primary Care Provider Angel Espinoza MD Primary Care Provider [phone] Encounter Details Date Type Department Care Team (Late st Contact Info) Description 09/07/2017 Transcribe Orders [facility] Specimen Processing [address] [place] [address] Angel Mariano MD [address] [place] [address] [address] [place] [address] [email or web address] Fever, unspecified fever cause (Primary Dx); [...] PM EST) Influenza A Ag Negative Negative [facility] Influenza B Ag Negative Negative [facility] Other (Nasal) 09/07/2017 12: 00 PM EST 09/07/2017 3:52 PM EST us Angel Mariano MD MICROBIOLOGY - GENERAL ORDERABLE S Final Result [facility] [address] [place] [address] documented in this encounter Visit Diagnoses Diagnosis Fever, unspecified fever cause- Primary Malaise Other malaise and fatigue documented in this encounter Care Teams Loan Originator Relationship Specialty Start Date End Date Unknown, Unknown, MD PCP - General 09/02/17 09/10/17 Angel Mariano MD [email or web address] PCP - General Family Medicine 09/11/17 documented as of this encounter Additional Source Comments The information contained in this document represents components of the legal health record. It is not the complete legal health record.[facility]
--- OUTSIDE RECORDS SUMMARY | 2025-04-28 17:12 | XMS_ITS | Clinical Summary ---
Author Organization [facility] [address] [place] [address] [place] [address] Phone Care Team Providers Care Road Supervisor Of Engines Name Role Phone Lisa Santos MD Primary Care Provider [phone] Allergies Active Allergy Reactions Criticality Noted Date [...] time each day. 2 Active sodium chloride ([place] Saline) 0.65 % nasal drops 3 Drops by Each Nare route 3 times daily. 1 Active tiZANidine (ZANAFLEX) 2 mg capsule Take 1 capsule by mouth at bedtime as needed for Muscle spasms. 1 Active coenzyme Q-10 10 mg capsule Take by mouth. 7 Active Active Problems Problem Noted Date Diagnosed Date Ankylosing spondylitis ([facility] V24, [facility] V28 ) 08/07/2024 Overview (08/07/2024): Onset ~ : SI joint fusion, fused LS and T spine Humira started December 2015- held in the summer due to dental problems Episode of Iritis - 05/23 Hepatic steatosis 08/07/2024 Morbid obesity with BMI of 4 0.0-44.9, adult ([facility] V24, [facility] V28) 08/07/2024 Chronic rhinitis 09/23/2019 Vitamin B12 deficiency 05/20/2019 Snoring 01/05/2019 Overview (08/07/2024): 12/2018 Home Sleep Study did not reveal sleep apnea or nocturnal hypoxia. 04/2019 Diagnostic polysomnogram did not reveal ELIJAH or nocturnal hypoxia. Crohn's disease of large int estine without complication ([facility] V24, [facility] V28) 08/11/2018 RLS (restless legs syndrome) 05/28/2018 Thyroid nodule 12/10/2017 Fracture of lumbar spine ([facility] V24, [facility] V 28) 08/05/2017 Overview (08/07/2024): Macario fracture Sternal fracture 08/05/2017 Fracture of rib of left side 08/05/2017 Overview (08/07/2024): Left 7th and 8th fracture Lung nodules 05/05/2016 Overview (08/07/2024): on imaging at [place], followed by Dr. Gaytan. CAT scan 04/23/17: [...] ascending colitis on bxy ESOPHAGOGASTRODUODENOSCOPY 09/12/2015 PROCEDURE: SD ESOPHAGOGASTRODUODENOSCOPY TRANSORAL DIAGNOSTIC; COMMENT: Normal with nl duodenal, antral and GE junction bxys BREAST BIOPSY 06/25/2018 Left PROCEDURE: BX BREAST; PERC NEEDLE CORE W/IMAG GUID; COMMENT: BENIGN FIBROADENOMATOUS CHANGES. OTHER SURGICAL HISTORY 02/2021 PROCEDURE: MAMMOGRAM, SCREENING, BOTH BREASTS Medical History Medical History Date Comments Depression with anxiety 10/06/2015 DX:Depre ssion with anxiety; COMMENT: [facility] - therapist Khushi triyohana to see her once in a week Hypercholesteremia 10/06/2015 DX:Hyperchole steremia Asthma 10/06/2015 DX:Asthma; COMME NT: Dr. Gaytan Ulcerative colitis ([facility] V24, [facility] V28) DX:Ulcerative colitis (HCC); COMMENT: Dr. Baez Ankylosing spondylitis ([facility] V24, [facility] V28) DX:Ankylosing spondylitis (H CC); COMMENT: Dr. Mckay Hepatic steatosis DX:Hepatic sher atosis Pelvic pain 11/24/2015 DX:Pelvic pain Iron deficiency anemia 11/25/2015 DX:Iron d eficiency anemia Vitamin D deficiency 11/25/2015 DX:Vitamin D deficiency Disc disease, degenerative, cervical 12/13/2015 DX:Disc disease, degenerative, cervical Lung nodules 05/2016 DX:Lung nodules; COMMENT: on imaging at [place], followed by Dr. Gaytan. Fracture of rib of left side 08/2017 DX: Fracture of rib of left side; COMMENT: Left 7th and 8th fracture Fracture of lumbar spine (CM S/HCC V24, [facility] V28) 08/2017 DX:Fracture of lumbar spine (HCC); COMMENT: Macario fracture Sternal fracture 08/2017 DX:Sternal frac ture Crohn's disease (CMS/HCC V24 , [facility] V28) DX:Crohn's disease (HCC) Family History Medical [...] is recommended in 1 year. MAMMO LOCATION: [facility], [address] [place] [address], [address], . -------- FINAL REPORT -------- Dictated By: Roselyn Martinez Dictated Date: 09/03/2024 08:19 ET Assigned Physician: Roselyn Martinez Reviewed and Electronically Signed By: Roselyn Martinez Signed Date: 09/03/2024 08:24 ET Workstation ID: [id number] Transcribed By: Self Edit Transcribed Date: 09/03/2024 [...] is recommended in 1 year. MAMMO LOCATION: [facility], [address] [place] [address], [address], . -------- FINAL REPORT -------- Dictated By: Roselyn Martinez Dictated Date: 09/03/2024 08:19 ET Assigned Physician: Roselyn Martinez Reviewed and Electronically Signed By: Roselyn Martinez Signed Date: 09/03/2024 08:24 ET Workstation ID: [id number] Transcribed By: Self Edit Transcribed Date: 09/03/2024 08:19 ET Lisa Santos MD IMG BI PROCEDURES Final Result * Annual BMP Blood Test (12/06/2020) [facility] Annual BMP Blood Test abstracted [facility] Provider HEALTH MAINTENANCE Final Result * Hepatitis C Screening (12/06/2020) [facility] Hepatitis C Screening abstracted Result [facility] Provider HEALTH MAINTENANCE Final Result * (ABNORMAL) Lipid panel (08/21/2019) [facility] LDL/HDL Ratio 4 0 - 4 Triglycerides 186(A) 0 - 150 mg/dL Cholesterol 198 0 - 200 mg/dL HDL 56 >=40 mg/dL LDL Cholesterol 105(A) 0 - 100 mg/dL Blood Venous blood specimen / Unknown Result [facility] Provider LAB BLOOD ORDERABLES Micaela l Result * HIV Screening (01/10/2018) [facility] HIV Screening abstracted Result [facility] Provider HEALTH MAINTENANCE Final Result * Cervical Cancer Screening: HPV (12/12/2015) [facility] Cervical Cancer Screening: HPV abstracted, negative us Historical Provider HEALTH MAINTENANCE Final Result * Colonoscopy (09/12/2015) Colonoscopy no interpretation , abstracted Anatomical Region Laterality Modality Other us Historical Provider HEALTH MAINTENANCE Final Result from Last 3 Months or Most Recently Relevant to Health Maintenance Insurance [facility] MEDICARE Member Subscriber Plan / Payer (Ef fective 2016-Present) Name:Josselin Harrington Relation to Subscriber:Self Name:Josselin Harrington Payer ID:[id number] Group ID:[id number] Type:Not on file Address: [place] [address] [address] [address] Supervisor Of Engines Relationship Specialty Start Date End Date Lisa Santos MD [address] [place] [address] PCP - General Internal Medicine 02/15/22
--- OUTSIDE RECORDS SUMMARY | 2025-04-28 17:13 | XMS_ITS | Encounter Summary ---
Author Organization [facility] Address [address] [place] [address] Phone Care Team Providers Care Technical Manager Name Role Phone Angel Mariano MD Primary Care Provider [phone] Encounter Details Date Type Department Care Team (Latest Contact Info) Description 09/11/2017 Transcribe Orders [facility] Specimen Processing [address] [place] [address] Angel Mariano MD [address] [facility], [address], [address] [place] [address] [email or web address] Moderate persistent asthma, unspecified whether complicated (Primary [...] EST) WBC 3.31(L) 3.40 - 11.20 K/uL [facility] RBC 4.59 3.80 - 4.80 M/uL [facility] HGB 11.5(L) 12.0 - 15.0 g/dL [facility] HCT 35.5(L) 36.0 - 46.0 % [facility] PLT 358 130 - 400 K/uL [facility] MCV 77.3(L) 79.0 - 98.0 [facility] MCH 25.1(L) 27.0 - 34.8 pg [facility] MCHC 32.4 31.5 - 36.0 g/dL [facility] RDW 15.6(H) 10.8 - 14.6 % [facility] MPV 9.9 9.4 - 12.4 [facility] NRBC 0.00 /100 WBCs [facility] ABSOLUTE NRBC 0.00 K/uL [facility] Blood 09/11/2017 8:25 AM EST 09/11/2017 12:17 PM EST us Angel Mariano MD LAB BLOOD ORDERABLES Final Resul t Performing Organization Address City/[facility]/ZIP Co de Phone Number [address] [address] * (ABNORMAL) Basic metabolic panel (09/11/2017 8:25 AM EST) SODIUM 142 133 - 146 mmol/L [facility] CHLORIDE 101 96 - 108 mmol/L [facility] POTASSIUM 4.1 3.3 - 5.1 mmol/L [facility] CO2 26 21 - 35 mmol/L [facility] BUN 9 6 - 19 mg/dL [facility] CREATININE <0.50(L) 0.5 - 1.5 mg/dL [facility] GLUCOSE 96 70 - 99 mg/dL [facility] CALCIUM 9.2 8.4 - 10.3 mg/dL [facility] EGFR Test Not Performed. >60 mL/min/1.7 3m2 [facility] Comment:Abnormal if <60. If patient is -Peruvian, multiply the result by 1.21. ANION GAP 19 10 - 20 mmol/L [facility] Blood 09/11/2017 8:25 AM EST 09/11/2017 12:17 PM EST us Angel Mraiano MD LAB BLOOD ORDERABLES Final Resul t Performing Organization Address City/[facility]/ZIP Co de Phone Number [address] [address] documented in this encounter Visit Diagnoses Diagnosis Moderate persistent asthma, unspecified whether complicated- Primary Essential hypertension, benign Hyperlipidemia, unspecified hyperlipidemia type documented in this encounter Care Teams Technical Manager Relationship Specialty Start Date End Date Angel Mariano MD [email or web address] PCP - General Family Medicine 09/11/17 documented as of this encounter Additional Source Comments The information contained in this document represents components of the legal health record. It is not the complete legal health record.[facility]
--- OUTSIDE RECORDS SUMMARY | 2025-04-28 17:13 | XMS_ITS | Clinical Summary ---
Author Organization [facility] Address [address] [place] [address] Phone Care Team Providers Care Corporate Concierge Name Role Phone Angel Mariano MD Primary Care Provider Encounters Date Type Department Care Team Description 01/27/2025 Refill [facility] at [address] [place] [address] Stiven Luna PA Medication Refill from Last [...] topic Medical Devices Not on file Insurance [facility] MEDICARE PART A & [place] & [place] PART A & B Care Teams Corporate Concierge Relationship Specialty Start Date End Date Angel Mariano MD [email or web address] PCP - General Family Medicine 09/11/17 Additional Source Comments The information contained in this document represents components of the legal health record. It is not the complete legal health record.[facility]
--- OUTSIDE RECORDS SUMMARY | 2025-04-28 17:13 | XMS_ITS | Patient Health Record ---
Author Organization [facility] Address [address] [place] [address] Care Team Providers Care Director Workers Compensation Name Role Phone BRITNEY STOREY Primary Care Provider Unavailab Debo Seymour Unavailable [phone] Allergies Allergen (clinical drug ingredient) Drug/Non Drug [...] a day; Duration: 30 day(s) Active Nystatin 610036 UNIT/GM 1 application Ex ternally Twice a [...] Status W/U Status Risk Notes Problem Menopause (330277387) Menopausal and female climacteric states (N95.1) Active confirmed Problem Postmenopausal atrophic vaginitis (17265021) Postmenopausal atrophic vaginitis (N95.2) Active confirmed Problem Polycystic ovary syndrome (disorder) (096735977) Polycystic ovarian syndrome (E28.2) Active confirmed Problem Morbid obesity (disorder) (312395057) Morbid (severe) obesity due to excess calories (E66.01) Active confirmed Problem Hyperlipidemia (40787820) Hyperlipidemia, unspecified (E78.5) Active confirmed Problem Recurrent depression (907871753) Other recurrent depressive disorders (F33.8) Active confirmed Problem Anxiety disorder (958614631) Anxiety disorder, unspecified (F41.9) Active confirmed Problem Vitreous opacities (882673565) Other vitreous opacities, unspecified eye (H43.399) Active confirmed Problem Asthma (056877375) Other asthma (J45.998) Active confirmed Problem Crohn's disease (96952429) Crohn's disease, unspecified, with unspecified complications (K50.919) Active confirmed Problem Fatty liver (916057609) Fatty (change of) liver, not elsewhere classified (K76.0) Active confirmed Problem Ankylosing spondylitis (1103929) Ankylosing spondylitis of unspecified sites in spine (M45.9) Active confirmed Problem Gastroesophageal reflux disease with esophagitis (disorder) (910514331) Gastro-esophageal reflux disease with esophagitis, without bleeding (K21.00) Active confirmed Vital Signs Temperature 97.4 degrees Fahrenheit 06/03/2024 Blood pressure diastolic 84 mm Hg 06/03/2024 Height 59 in 06/03/2024 Blood pressure systolic 124 mm Hg 06/03/2024 Weight 193 lbs 06/03/2024 BMI 38.98 kg/m2 06/03/2024 Encounters Encounter Location Date Provider Diagnosis [place] [address] [address] 06/19/2024 Debo Patel [address] [address] 06/03/2024 Debo Patel Encounter for gynecological examination (general) (routine) without abnormal findings Z01.419 ; Encounter for screening mammogram for malignant neoplasm of breast Z12.31 and Acute candidiasis of vulva and vagina B37.31 [address] [address] 07/30/2024 Debo Patel Assessments Encounter Date Diagnosis [...] Name:Debo head, 06/10/2025 02:40:00 PM, [address], [place], [address], Insurance Providers Payer Name Payer Address Payer Phone Subscriber Number Group Number Insured Name Patient Relationship to Insured Coverage Start Date Coverage End Date [place] [id number] JAIME SÁNCHEZ Self - patient is the [...]
[2025-04-28 18:22] LABS: MANUAL DIFF FLAG NO
[2025-04-28 18:29] LABS: Hematocrit 38.5 % (37.0-47.0); Hemoglobin 13.1 g/dl (12.0-16.0); Imm Gran Abs Auto 0.03 X10*3/uL (0.00-0.03); Imm Gran Pct Auto 0.4 % (0.0-0.4); Lymphocytes Absolute Auto 1.8 X10*3/uL (1.2-4.9); Mean Corpuscular HGB Conc 34.0 g/dl (31.0-35.0); Mean Corpuscular Hemoglobin 28.0 pg (27.0-33.0); Mean Corpuscular Volume 82.3 fL (80.0-98.0); NRBC Abs Auto 0.000 X10*3/uL (0.0-0.012); NRBC Pct Auto 0.0 /100WBC (0.0-0.2); Platelet Count 290 X10*3/uL (160-400); Red Blood Count 4.68 X10*6/uL (4.20-5.50); White Blood Count 7.5 X10*3/uL (4.8-10.8)
[2025-04-28 19:07] LABS: Alanine Aminotransferase 41 U/L (0-31); Albumin Level 4.4 g/dL (3.5-5.0); Alkaline Phosphatase 75 U/L (39-117); Anion Gap 12 (12-20); Aspartate Amino Transferase 81 U/L (5-31); Blood Urea Nitrogen 10 mg/dL (9-16); Calcium 9.2 mg/dL (8.4-10.2); Carbon Dioxide 27 mmol/L (22-29); Chloride 105 mmol/L (96-108); Cholesterol 141 mg/dL (<200); Estimated Glomerular Filt Rate > 60; HDL Cholesterol 41 mg/dL (>40); Potassium 3.9 mmol/L (3.3-5.1); Sodium 140 mmol/L (135-145); Total Protein 7.0 g/dL (6.5-8.0); Triglycerides 118 mg/dL (<150)
[2025-04-28 20:22] LABS: Folate 12.5 ng/mL (> or = 4.0); Vitamin B12 1076 pg/mL (200-900)
== END 2025-04-28 14:38 | disposition home or self-care (01) ==
LOC: HO.WFDLDS 14:37
PROVIDERS: Visit Provider Family Medicine
DX: Z00.00 Encounter for general adult medical examination without abnormal findings (principal); E53.8 Deficiency of other specified B group vitamins; Z13.6 Encounter for screening for cardiovascular disorders; Z13.29 Encounter for screening for other suspected endocrine disorder
CPT/HCPCS: 36415; 80053; 80061; 82607; 82746; 84443; 85025

== ENCOUNTER 2025-05-12 14:44 | Outpatient (REF) | payer OTHER, SELFPAY ==
[2025-05-12 18:21] LABS: Appearance Urine Clear; Glucose Urine UA Negative (Negative); PH 6.5 (5.0-9.0); Specific Gravity - Urine <= 1.005 (1.005-1.025); UMIC TRIGGER UACC YES
== END 2025-05-12 14:45 | disposition home or self-care (01) ==
LOC: HO.LNP 14:44
PROVIDERS: PCP Family Medicine; Visit Provider Nurse Practitioner Family
DX: J45.909 Unspecified asthma, uncomplicated (principal); I10 Essential (primary) hypertension; R91.1 Solitary pulmonary nodule
CPT/HCPCS: 81001; 82043; 82570; 99212

== ENCOUNTER 2025-05-12 14:44 | Outpatient (AMB) | payer OTHER, SELFPAY ==
[2025-05-12 14:47] VITALS: BP 118/74; PULSE 101; O2SAT 95; BMI 40.6
--- NOTE | 2025-05-12 14:47 | A.OFFVIS_ITS ---
Vital Signs 05/12/25 14:47 Height 5 ft Weight 208 lb BMI 40.6 BP 118/74 Blood Pressure Location Rt brachial Position Sitting Pulse 101 H Pulse Source Pulse Oximeter Pulse Oximetry (%) 95 Oxygen Delivery Method Room Air Intake Visit Reasons: Asthma Allergies Penicillins (PENICILLINS) Allergy (Severe, Verified 05/12/25 14:50) ANAPHYLAXIS simvastatin Allergy (Mild, Verified 05/12/25 14:50) weird feeling ibuprofen Adverse Reaction (Intermediate, Verified 05/12/25 14:50) stomach upset, irritates Chrohn's HPI HPI Asthma: Details: Josselin is a pleasant 55-year-old female, never smoker with underlying asthma, Crohn's disease and Ankylosing Spondylitis on Humira under the care of Dr. Gudino. She is currently on Advair 500 1 inhalation QD, Singulair, rarely using albuterol MDI with moderate control of respiratory symptoms. Previously used BID and felt this contributed to bronchitis so continues on QD dosing. She does report increase in nasal congestion and post nasal drip, using nasal sprays intermittently. Of note, she reports recently having anesthesia and having episodic apneas, questioning ELIJAH. She reportedly underwent sleep study in the past which was negative but is agreeable to have repeat testing since prior was from years ago. [facility] Medical History Tubular adenoma Chronic idiopathic constipation Crohn disease Unspecified asthma, uncomplicated Dysuria Surgical History Hx of colonoscopy History of esophagogastroduodenoscopy (EGD) No pertinent past surgical history Family History Father Suicide Mother Hypertension Diabetes Paternal Grandmother Stroke Brother In good health Sister In good health Social History Housing: Other Housing Other:: mobile home Alcohol intake: current Alcohol intake frequency: does not drink Patient Tobacco Use Status: Never used Tobacco e-Cigarette/Vaping Use: Never Used Second Hand Smoke Exposure: Yes service: No Current occupational status: disabled Current occupational exposures/hazards: No Cognitive needs: No Hearing needs: No Vision needs: No Review of Systems Const Denies chills, Denies excessive sweating, Denies fever(s), Denies headache(s) and Denies night sweats Eyes Denies dry eyes, Denies irritation and Denies itchy eyes ENT Reports Normal hearing present and Denies headache(s) Card Denies chest pain, Denies chest pain at rest, Denies chest pain with activity, Denies claudication, Denies leg edema, Denies dyspnea, Denies dyspnea on exertion and Denies orthopnea Resp Denies change in phlegm color, Denies chest congestion, Reports cough, Denies hemoptysis, Denies excessive phlegm production, Denies pain on inspiration, Denies pain with cough, Denies dyspnea, Denies dyspnea on exertion, Denies stridor and Denies wheezing Musc Denies myalgias Neuro Reports Normal hearing present and Denies headache(s) Endo Denies excessive sweating Kevin/Lymph Denies lymphadenopathy Aller/Immun Denies itchy eyes, Denies seasonal rhinorrhea and Denies wheezing Physical Exam Vital Signs: Last Vital Signs Pulse 101 H 05/12/25 14:47 BP 118/74 05/12/25 14:47 Pulse Ox 95 05/12/25 14:47 Oxygen Delivery Method Room Air 05/12/25 14:47 BMI result Body Mass Index 40.6 Neuro Cranial nerves: Yes Normal hearing present Assessment & Plan Assessment & Plan (1) Asthma: Code(s): J45.909 - Unspecified asthma, uncomplicated Category: Medical (2) Cough: Code(s): R05.9 - Cough, unspecified Category: Medical (3) Allergic rhinitis: Code(s): J30.9 - Allergic rhinitis, unspecified Category: Medical (4) Lung nodule: Code(s): R91.1 - Solitary pulmonary nodule Category: Medical Plan At this time Josselin reports moderate control of respiratory symptoms on current regimen, advised to continue and if symptoms change consider increasing Advair to BID dosing. She is aware to call if symptoms change. She reports witnessed apneas, will send for home sleep study for further evaluation. She has upcoming chest CT scheduled to assess for resolution of prior PNA at the end of this month. All questions were answered and patient is in agreement of plan. Will follow up in 3 months or sooner if needed. Orders: Orders RT home sleep study Today R06.81 - Apnea, not elsewhere classified Coding Level of Care Code Est Pt Level 4 (52960) Diagnoses Asthma J45.909 Cough R05.9 Allergic rhinitis J30.9 Lung nodule R91.1
== END 2025-05-12 15:26 | disposition home or self-care (01) ==
LOC: HO.HPSW 14:45
PROVIDERS: PCP Family Medicine; Visit Provider Nurse Practitioner Family
DX: J45.909 Unspecified asthma, uncomplicated (principal); R05.9 Cough, unspecified; J30.9 Allergic rhinitis, unspecified; R91.1 Solitary pulmonary nodule
CPT/HCPCS: 99214

== ENCOUNTER 2025-05-19 10:48 | Outpatient (AMB) | payer OTHER, SELFPAY ==
--- OUTSIDE RECORDS SUMMARY | 2024-06-19 09:40 | XMS_ITS ---
Author Organization Total [facility] Address [address] [place] [address] Care Team Providers Care Director Sales And Trade Marketing Name Role Phone BRITNEY STOREY Primary Care Provider Unavailab Debo Seymour Unavailable [phone] REASON FOR VISIT ULTRA - BLOATING PAIN Encounters Encounter Location Date Provider Diagnosis [facility] [address] [address] 06/19/2024 Debo Patel Plan Of Treatment Next Appt Details Provider Name:Debo head, 06/10/2025 02:40:00 PM, [address] [place] [address], [address], [place], [address], Progress Notes * JAIME SÁNCHEZDOB:1970 (55 yo F)Acc No.[id number]:06/19/2024 PROGRESS NOTES Patient: JAIME CARVAJAL Appointment Provider: Jennifer Patel M.D. :1970 A ge:54 Y S ex:Female Date:06/19/2024 Address:[address] [place], [place] [phone] Pcp:BRITNEY STOREY Subjective: * Chief Complaints: * 1 . ULTRA - BLOATING PAIN. * Medical History: Objective: * Vitals: Assessment: Plan: * Treatment: * Images: Billing Information: * Visit Code: * Procedure Codes: * Electronic signature of Mary Patel MD on 05/19/2025 at 01:07 PM EDT Sign off status: Pending * Appointment Provider: Jennifer aPtel M.D. Date: 08/19/2023 Generated for Jasmyn gordon/Linda/Gregorioitting on: 01:07 PM EDT
--- NOTE | 2025-05-19 11:05 | MHC.PC.OV ---
Vital Signs 05/19/25 11:12 Height 5 ft BMI Reason not done Patient refused/unable BP 144/72 H Blood Pressure Location Rt brachial Position Sitting Respiration 16 Pulse 68 Pulse Source Pulse Oximeter Temp 97.5 F Temp Source Temporal Artery Scan Pulse Oximetry (%) 95 Oxygen Delivery Method Room Air Intake Visit Reasons: ER f/u from [facility] broke wrist. 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 Required: No Is last menstrual period known: No Post menopausal: No Patient : No Allergies Penicillins (PENICILLINS) Allergy (Severe, Verified 05/19/25 11:06) ANAPHYLAXIS simvastatin Allergy (Mild, Verified 05/19/25 11:06) weird feeling ibuprofen Adverse Reaction (Intermediate, Verified 05/19/25 11:06) stomach upset, irritates Chrgan's Medication List - Last Reconciled 05/19/25 by Layton Ward MD acetaminophen ER (Tylenol 8 Hour) 1,300 mg PO Q12H PRN adalimumab (Humira(CF) Pen) 40 mg subcut Q2W albuterol sulfate 2.5 mg (3 mL) inhalation Q4-6H PRN 30 days albuterol sulfate 90 mcg/actuation 2 puffs inhalation QID PRN alendronate 70 mg PO QWEEK 28 days azelastine intranasal budesonide 32 mcg/actuation 1 spray intranasal DAILY cholecalciferol (vitamin D3) 50 mcg PO DAILY 3 months clotrimazole 1% 1 appful vaginal BEDTIME PRN clotrimazole-betamethasone 1-0.05 % 1 appl topical BID 2 weeks coenzyme Q10 (Co Q-10) 100 mg PO DAILY cranberry extract 250 mg PO DAILY cyanocobalamin (vitamin B-12) 1,000 mcg PO DAILY 30 days docusate sodium 200 mg (2 x 100 mg) PO BID epinephrine (EpiPen 2-Isma) 0.3 mg (0.3 mL) IM Q10M PRN estradiol 0.01%(0.1mg/gram) Start with application daily for 2 weeks. pea-sized to urethra 3 times a week following 30 days fluticasone propion-salmeterol 500-50 mcg/dose (Advair Diskus) 1 inh inhalation Q12H lamotrigine (Lamictal) 100 mg PO DAILY loratadine 10 mg PO DAILY 90 days lorazepam 0.5 mg PO BID PRN mesalamine 1,200 mg (3 x 400 mg) PO BID montelukast 10 mg PO DAILY nystatin 5 mL PO DAILY 10 days nystatin 5 mL PO DAILY 10 days nystatin-triamcinolone 100,000-0.1 unit/g-% 1 appl topical TID omeprazole 20 mg PO DAILY rosuvastatin 40 mg PO DAILY tizanidine 2 mg PO TID PRN 30 days Tobacco use date assessed: 05/19/25 Dental Screening Dental Screen Date: 05/19/25 Did you have a dental visit in the last 12 months?: No Did you have a dental problem in the last 6 months where you did not have access to dental care?: No Was dental information given to patient?: Patient has dentist HPI ER f/u from [facility] broke wrist. HPI Details 55 y/o female presents to f/u ER visit for broken wrist. Pt notes she had fallen at a parking lot and had hurt her wrist. X-ray had shown fracture and this was casted. Denies hitting her head. Does note a knee contusion as well. More recent labs show elevated liver enzymes. AST 81. ALT 41. HPI Comments History of Present Illness Details Documentation assistance for Layton Ward MD, was provided by Jeyson Aviles,? Transportation Planner on 05/19/2025 at 11:56 AM EST. I, Dr. Ward, have read, observed, and verified documentation. ? PFSH Medical History Tubular adenoma Chronic idiopathic constipation Crohn disease Unspecified asthma, uncomplicated Dysuria Surgical History Hx of colonoscopy History of esophagogastroduodenoscopy (EGD) No pertinent past surgical history Family History Father Suicide Mother Hypertension Diabetes Paternal Grandmother Stroke Brother In good health Sister In good health Social History Housing: Other Housing Other:: mobile home Alcohol intake: current Alcohol intake frequency: does not drink Patient Tobacco Use Status: Never used Tobacco e-Cigarette/Vaping Use: Never Used Second Hand Smoke Exposure: Yes Patient : No service: No Current occupational status: disabled Current occupational exposures/hazards: No Cognitive needs: No Hearing needs: No Vision needs: No Questionnaire Thrive Questionnaire Date Thrive assessed: 08/12/24 I am a: Patient What is your living situation today?: I choose not to answer this question Within the past 12 months, did the food you bought not last and you didn't have the money to get more?: I choose not to answer this question Within the past 12 months, did you worry whether your food would run out before you got money to buy more?: I choose not to answer this question Do you have trouble paying for medicines?: I choose not to answer this question Do you have trouble getting transportation to medical appointments?: I choose not to answer this question Do you have trouble paying your heating and electricity bill?: I choose not to answer this question Do you have trouble taking care of your child, family member or friend?: I choose not to answer this question Do you have trouble with day-to-day activities such as bathing, preparing meals, shopping, managing finances, etc.?: I choose not to answer this question Are you currently unemployed and looking for a job?: I choose not to answer this question Are you interested in more education?: I choose not to answer this question Please select the resources that you would like help with: None Currently or been in a relationship where the following occur: No concerns reported THRIVE Score: 0 ZENY-7 AMB Questionnaire ZENY-7 Date ZENY - 7 assessed: 08/12/24 Source: Developed by Drs. Bernardino Ahumada, Peri Valencia, Gordy Victoria and colleagues, with an educational hakeem from [employer]. Review of Systems Const Denies chills, Denies fatigue, Denies fever(s), Denies headache(s) and Denies weakness ENT Denies dizziness and Denies headache(s) Card Denies dyspnea Resp Denies cough, Denies dyspnea, Denies wheezing and Denies other (shortness of breath) Musc Denies numbness and Denies tingling Neuro Denies dizziness, Denies headache(s), Denies numbness, Denies tingling and Denies weakness Psych Denies anxiety and Denies depression Endo Denies fatigue Aller/Immun Denies wheezing Physical exam (Primary Care) Vital Signs: Last Vital Signs Temp 97.5 F 05/19/25 11:12 Pulse 68 05/19/25 11:12 Resp 16 05/19/25 11:12 BP 144/72 H 05/19/25 11:12 Pulse Ox 95 05/19/25 11:12 Oxygen Delivery Method Room Air 05/19/25 11:12 Tobacco/Smoking Status: Tobacco use Status Tobacco use date assessed 05/19/25 05/19/25 11:11 Patient Tobacco Use Status Never used Tobacco 05/19/25 11:11 e-Cigarette/Vaping Use Never Used 05/19/25 11:11 Thrive Assessment: Date of Thrive Assessment Date Thrive assessed 08/12/24 05/19/25 11:11 Currently or been in a relationship where the following occur: No concerns reported Const General: well developed; No acute distress Nutritional Appearance: well nourished Orientation/consciousness: patient oriented x3 HENMT Head: Yes normocephalic and Yes atraumatic Eyes General: appearance normal, both eyes and all related structures Pupils: Equal, round and reactive pupils present EOM: EOMs intact bilaterally Resp Effort & Inspection: normal respiratory effort Neuro General: patient oriented x3 and gait normal Cranial nerves: Yes Equal, round and reactive pupils present Psych Affect: normal affect Coding Level of Care Code Est Pt Level 4 (95196) Diagnoses Status post fall Z91.81 Wrist pain M25.539 Elevated liver enzymes R74.8 Assessment & Plan Assessment & Plan (1) Status post fall: Code(s): Z91.81 - History of falling Category: Medical (2) Wrist pain: Code(s): M25.539 - Pain in unspecified wrist Category: Medical (3) Elevated liver enzymes: Code(s): R74.8 - Abnormal levels of other serum enzymes Category: Medical Plan Patient had mechanical trip and fall after last visit, in parking lot. Fallen to left wrist. At ED x-ray showed fracture and this was casted Follow-up showed angulated displaced fracture and she was brought to the OR for ORIF Now casted Patient is using small amounts of ibuprofen and Tylenol for pain. She will follow-up with her orthopedic surgeon Reviewed labs with Patient Ongoing elevations in liver enzymes Encouraged good hydration and weight loss Will follow-up at her next visit in July Orders: Orders Comprehensive [place]. Panel Fast Today R74.8 - Abnormal levels of other serum enzymes, Z00.00 - Encounter for general adult medical examination without abnormal findings
[2025-05-19 11:12] VITALS: BP 144/72; PULSE 68; RESP 16; TEMP 36.4; O2SAT 95
--- OUTSIDE RECORDS SUMMARY | 2025-05-19 13:07 | XMS_ITS | Encounter Summary ---
Author Organization [employer] [facility] Address [address] [place] [address] Phone Care Team Providers Care Commercial Title Examiner Name Role Phone Unknown, Unknown Primary Care Provider Angel Espinoza MD Primary Care Provider [phone] Encounter Details Date Type Department Care Team (Late st Contact Info) Description 09/07/2017 Transcribe Orders [facility] Specimen Processing [address] [place] [address] Angel Mariano MD [address] [place] [address] [address], [address] [place] [address] [email or web address] Fever, unspecified fever cause (Primary Dx); [...] PM EST) Influenza A Ag Negative Negative [facility] Influenza B Ag Negative Negative [facility] Other (Nasal) 09/07/2017 12: 00 PM EST 09/07/2017 3:52 PM EST us Angel Mariano MD MICROBIOLOGY - GENERAL ORDERABLE S Final Result [facility] [address] [place] [address] documented in this encounter Visit Diagnoses Diagnosis Fever, unspecified fever cause- Primary Malaise Other malaise and fatigue documented in this encounter Care Teams Commercial Title Examiner Relationship Specialty Start Date End Date Unknown, Unknown, MD PCP - General 09/02/17 09/10/17 Angel Mariano MD [email or web address] PCP - General Family Medicine 09/11/17 documented as of this encounter Additional Source Comments The information contained in this document represents components of the legal health record. It is not the complete legal health record.[facility]
--- OUTSIDE RECORDS SUMMARY | 2025-05-19 13:08 | XMS_ITS | Patient Health Record ---
Author Organization [facility] Address [address] [place] [address] Care Team Providers Care Intelligence Research Specialist Name Role Phone BRITNEY STOREY Primary Care Provider Unavailab Debo Seymour Unavailable [phone] Allergies Allergen (clinical drug ingredient) Drug/Non Drug [...] a day; Duration: 30 day(s) Active Nystatin 845419 UNIT/GM 1 application Ex ternally Twice a [...] Status W/U Status Risk Notes Problem Menopause (328062492) Menopausal and female climacteric states (N95.1) Active confirmed Problem Postmenopausal atrophic vaginitis (26256188) Postmenopausal atrophic vaginitis (N95.2) Active confirmed Problem Polycystic ovary syndrome (disorder) (489034039) Polycystic ovarian syndrome (E28.2) Active confirmed Problem Morbid obesity (disorder) (787260596) Morbid (severe) obesity due to excess calories (E66.01) Active confirmed Problem Hyperlipidemia (36932824) Hyperlipidemia, unspecified (E78.5) Active confirmed Problem Recurrent depression (073574632) Other recurrent depressive disorders (F33.8) Active confirmed Problem Anxiety disorder (989726099) Anxiety disorder, unspecified (F41.9) Active confirmed Problem Vitreous opacities (985813314) Other vitreous opacities, unspecified eye (H43.399) Active confirmed Problem Asthma (242264729) Other asthma (J45.998) Active confirmed Problem Crohn's disease (21870500) Crohn's disease, unspecified, with unspecified complications (K50.919) Active confirmed Problem Fatty liver (657719950) Fatty (change of) liver, not elsewhere classified (K76.0) Active confirmed Problem Ankylosing spondylitis (6968995) Ankylosing spondylitis of unspecified sites in spine (M45.9) Active confirmed Problem Gastroesophageal reflux disease with esophagitis (disorder) (062646310) Gastro-esophageal reflux disease with esophagitis, without bleeding (K21.00) Active confirmed Vital Signs Temperature 97.4 degrees Fahrenheit 06/03/2024 Blood pressure diastolic 84 mm Hg 06/03/2024 Height 59 in 06/03/2024 Blood pressure systolic 124 mm Hg 06/03/2024 Weight 193 lbs 06/03/2024 BMI 38.98 kg/m2 06/03/2024 Encounters Encounter Location Date Provider Diagnosis [place] [address] [address] 06/19/2024 Debo Patel [address] [address] 06/03/2024 Debo Patel Encounter for gynecological examination (general) (routine) without abnormal findings Z01.419 ; Encounter for screening mammogram for malignant neoplasm of breast Z12.31 and Acute candidiasis of vulva and vagina B37.31 [address] [address] 07/30/2024 Debo Patel Assessments Encounter Date Diagnosis [...] Name:Debo head, 06/10/2025 02:40:00 PM, [address], [address], [place], [address], Insurance Providers Payer Name Payer Address Payer Phone Subscriber Number Group Number Insured Name Patient Relationship to Insured Coverage Start Date Coverage End Date [place] [id number] JAIME SÁNCHEZ Self - patient is the [...]
--- OUTSIDE RECORDS SUMMARY | 2025-05-19 13:08 | XMS_ITS | Data Portability ---
Author Organization [place] [facility] Address [address] [place] [address] Care Team Providers Care Rn Documentation Specialist Name Role Phone [facility] Primary Care Provider [facility] OTHER Assessment Encounter Date Assessment Date Assessment LastModified by Organization Details LastModified Time 09/03/2021 09/03/2021 Proper Personal Protective Equipment (PPE), including gloves, eye protection and masks were donned and doffed appropriately and all equipment cleaned using approved technique with germicidal disposable wipes prior to and after care of this patient according to [facility]'s infection prevention protocols. Overview/History : 51 [...] encouraged to seek pulmonary consult through PCP [email or web address] Not available 09/03/2021 12:56:33 Plan of Treatment Reminders Order Date Submit Date Provider Last Modified By Organization Details Last Modified Time Details Appointments None recorded. Lab unlisted lab - covid-19 (novel coronavirus ) PCR 2021 [place] [facility] (Centralized Electronic Ordering - All Locations), Patient Can Go To The Location Of Their Choice, [address] 13:16:40 Referral None recorded. Procedures None recorded. Surgeries None recorded. Imaging None recorded. Medication Orders benzonatate 200 mg capsule 2021 [facility] [place], [place], [address], [place], [address], 13:01:10 Patient TargetsNo targets recorded. Patient Instructions Encounter Date Encounter Id Patient Instructions Last Modified By Organization Details Last Modified Time 09/03/2021 [id number] Inhaler Instructions Before use, you need to prime the inhaler: Take the cap off the mouthpiece and put the inhaler in the spacer Shake the inhaler for 5 seconds Hold the inhaler upright with 1 finger on the top of the canister, the thumb on the bottom of the inhaler, and your other hand holding the spacer Express a large breath Close lips around spacer Press down on the canister After you press down on the canister, breathe (or have your child breathe in) deeply and slowly and hold your breath for 10 seconds Take out of your mouth and slowly exhale If you were instructed to take 2 puffs of the inhaler, wait one minute before you give the second puff. Shake the inhaler again before the second puff. If the inhaler is a steroid medicine (also called a g lucocorticoid or c orticosteroid ), rinse out your mouth, gargle, and spit out the water Cleaning: If you use the inhaler every day, you need to clean it at least once a week. If you use less often, clean the inhaler when you see powder in or around the hole. To clean an inhaler: Remove the canister and cap from the mouthpiece. Do not wash the canister or put the canister under water. Run warm water through the mouthpiece for 30 to 60 seconds Shake the water off of the mouthpiece and let it air dry Clean the spacer every 1-2 weeks. First, remove the inhaler from the spacer. Wash the spacer with warm water and dishwashing soap, but do NOT rinse it. Then let it air dry. Leaving the spacer a little soapy after cleaning actually helps it work better. [email or web address] Not available 09/03/2021 11:39:16 Reason for Referral None Reported. Results Created Date Observation Date Name Description Value Unit Range Abnormal Flag Note LastModifiedBy Organization Detail LastModifiedTime 09/03/19 22 09/05/2021 COVID -19 (NOVE L CORON AVIRU S) PCR covid-19 PCR result (neg) NEGAT SADIQ 2018- novel Coron aviru s (2018 -nCoV ) not detec sandee by the qRT-P CR assay . If clini nu suspi cion for COVID -19 is high, marily nue to maint ain preca ution s and consi felice repea t testi ng. Resul t repor sandee to the [facility]. This test has been autho rized by the FDA under an Emerg ency Use Autho rizat ion (EUA) for use by autho rized labor atori es. Test perfo rmed by [facility] at the [facility] and Abhijeet gutierrez, [address] [place] [address] . CLIA ID: [id number] , CAP: [id number] 96. Medic al Direc tor: Ruma Ramirez, [...] limit ed to the [facility] at the [facility] which is certi fied under the Clini [...] patie nt manag ement decis ions. Negat sdaiq resul ts must be combi zhane with clini nu obser vatio ns, patie nt histo ry, and epide miolo gical infor matio n. Not Available [facility] (Centralized Electronic Ordering - All Locations) Patient Can Go To The Location Of Their Choice, [id number] 09/05/2021 13:16:40 Result Notes None recorded. Procedures Surgical History Date Name Laterality Status Provider Name and Address Organization Details Recorded Time 09/03/19 22 ECG Interpretation - completed MARGARET Bazzi [address], [place], [address], [place] - [facility] 09/03/2021 12:41:20 Imaging Results [...] 0.3 mg (0.3 mL) Into the muscle [id number] As Needed for anaphylaxis ; for 2 [...] Not Available Not Available No t Available [place] Saline 0.65 % nasal drops active Not [...] Pulse oximetry Body temperature Respiratory rate Systolic And Diastolic Provider Name and Address Organization Details Last Updated DateTime 2 90 /min 95 % 95 % 99.5 [degF] 18 /min 136/98 mm[Hg] Not Available [facility] 11:44:08 Social History None recorded. Functional Status None recorded. Mental Status None recorded. Family History Nothing Reported. Medical History No medical history recorded. Gynecological HistoryNo gynecological history recorded. Obstetrics History GPAL:G 0 P 0 0 0 0 Past Encounters Encounter ID Performer Location Encounter Start Date Encounter Closed Date Diagnosis/Indication Diagnosis SNOMED-CT Code Diagnosis ICD10 Code Diagnosis IMO Codes Diagnosis Note [id number] MARGARET Bazzi [facility] [address] [place] [address] 09/03/2021 11:37:26 09/04/2021 08:55:24 Viral upper respiratory tract infection 828226967 J06.9 Exposure t o communicable disease 341251692 Z20.822 Health Concerns Section Related Observation LastModified by Organization Detai ls LastModified Time None Recorded Concern Status LastModified by Organization Details LastModified Time None Recorded Advance Directives Directive None Recorded Payers Insurance Date Sequence Insurance Name Policy Number Policy Mckeon Covered Member ID Mckeon Member ID Guarantor Name 09/04/2021 1 [facility] - DOS PRIOR TO 2022 - DUAL ELIGIBLE (MEDICARE REPLACEMENT/ADV ANTAGE - HMO) Josselin Harrington [id number] Josselin Harrington 09/03/2021 1 *SELF PAY* Josselin Harrington [id number] Josselin Harrington 09/03/2021 1 [place]: [employer] Josselin Harrington [id number] Josselin Harrington 09/03/2021 1 [facility] - DOS PRIOR TO 2022 - DUAL ELIGIBLE (MEDICARE REPLACEMENT/ADV ANTAGE - HMO) Josselin Harrington [id number] Josselin Harrington Notes Date Note Type Note Provider Name and Address Organization Details Recorded Time 09/03/2021 text/html General HPI Template - DHReported by Patient -51 yo female new to and provider-pt rises easily from chair [...] a heart attack-no smoking, no hx of CA/CVA, reports cholesterol is fine , and denies any family hx of CAD. MARGARET Bazzi [address], [place], [address], [place] [facility] 09/03/2021 12:56:49 OBGyn Episode No OBEpisode recorded.
--- OUTSIDE RECORDS SUMMARY | 2025-05-19 13:08 | XMS_ITS | Clinical Summary ---
Author Organization [facility] Address [address] [place] [address] Phone Care Team Providers Care Boarding Mother Name Role Phone Angel Mariano MD Primary Care Provider [phone] Social History Tobacco Use Types Packs/Day Years [...] 07/14/2019, 04/16/2018, Additional history exists COVID-19 VACCINE ( season) 2025 11/16/2020, 10/26/2020 Adult Td,Tdap Booster 06/21/2026 06/21/2016 RSV VACCINE (1 - 1-dose 75+ series) 2045 HEPATITIS A VACCINES Aged Out No long [...] topic Medical Devices Not on file Insurance [facility] MEDICARE PART A & [place] & B Care Teams Boarding Mother Relationship Specialty Start Date End Date Angel Mariano MD [email or web address] PCP - General Family Medicine 09/11/17 Additional Source Comments The information contained in this document represents components of the legal health record. It is not the complete legal health record.[facility]
--- OUTSIDE RECORDS SUMMARY | 2025-05-19 13:08 | XMS_ITS | Encounter Summary ---
Author Organization [facility] Address [address] [place] [address] Phone Care Team Providers Care Track Repair Person Name Role Phone Unknown, Unknown Primary Care Provider Angel Espinoza MD Primary Care Provider [phone] Encounter Details Date Type Department Care Team (Late st Contact Info) Description 09/02/2017 Transcribe Orders [facility] Specimen Processing [address] [place] [address] Angel Mariano MD [address] [place] [address] [email or web address] Examination (Primary Dx) Social History Tobacco Use [...] HOSPITAL Comment:Abnormal if <60. If patient is -Gambian, multiply the result by 1.21. ANION GAP 17 10 - 20 mmol/L [facility] Blood 09/02/2017 8:20 AM EST 09/02/2017 11:12 AM EST us Angel Mariano MD LAB BLOOD ORDERABLES Final Resul t Performing Organization Address City/State/[facility] Co de Phone Number [facility] [address] [place] [address] * (ABNORMAL) CBC (09/02/2017 8:20 AM EST) [...] MD LAB BLOOD ORDERABLES Final Resul t [address] [address] documented in this encounter Visit Diagnoses Diagnosis Examination- Primary Unspecified examination documented in this encounter Care Teams Track Repair Person Relationship Specialty Start Date End Date Unknown, Unknown, MD PCP - General 09/02/17 09/10/17 Angel Mariano MD [email or web address] PCP - General Family Medicine 09/11/17 documented as of this encounter Additional Source Comments The information contained in this document represents components of the legal health record. It is not the complete legal health record.[facility]
--- OUTSIDE RECORDS SUMMARY | 2025-05-19 13:08 | XMS_ITS | Patient Health Record ---
Author Organization [facility] Address [address] [place] [address] Care Team Providers Care Weld Fitter Name Role Phone Bindu Sanders MD Primary [...] Risk Notes Problem Liver function tests abnormal ([id number]) Nonspecific abnormal results of liver function study [...] OF [address] AINSLEY SANCHEZ [id number] Josselin Harrington Self - patient is the insured [facility] [address] [place] [address] [id number] Josselin Harrington Self - patient is the insured Medical (General) History Medical History History ICD Code back and hip pain following a fall hypertension depression anxiety esophageal reflux elevated lipids low vitamin D level
--- OUTSIDE RECORDS SUMMARY | 2025-05-19 13:08 | XMS_ITS | Encounter Summary ---
Author Organization [facility] Address [address] [place] [address] Phone Care Team Providers Care Avionics Systems Repairer Name Role Phone Angel Mariano MD Primary Care Provider [phone] Encounter Details Date Type Department Care Team (Latest Contact Info) Description 09/11/2017 Transcribe Orders [facility] Specimen Processing [address] [place] [address] Angel Mariano MD 38 [facility], [address], [address] [place] [address] [email or web address] Moderate persistent asthma, unspecified whether complicated (Primary [...] EST) WBC 3.31(L) 3.40 - 11.20 K/uL [facility] RBC 4.59 3.80 - 4.80 M/uL [facility] HGB 11.5(L) 12.0 - 15.0 g/dL [facility] HCT 35.5(L) 36.0 - 46.0 % [facility] PLT 358 130 - 400 K/uL [facility] MCV 77.3(L) 79.0 - 98.0 [facility] MCH 25.1(L) 27.0 - 34.8 pg [facility] MCHC 32.4 31.5 - 36.0 g/dL [facility] RDW 15.6(H) 10.8 - 14.6 % [facility] MPV 9.9 9.4 - 12.4 [facility] NRBC 0.00 /100 WBCs [facility] ABSOLUTE NRBC 0.00 K/uL [facility] Blood 09/11/2017 8:25 AM EST 09/11/2017 12:17 PM EST us Angel Mariano MD LAB BLOOD ORDERABLES Final Resul t Performing Organization Address City/[facility]/ZIP Co de Phone Number [address] [address] * (ABNORMAL) Basic metabolic panel (09/11/2017 8:25 AM EST) SODIUM 142 133 - 146 mmol/L [facility] CHLORIDE 101 96 - 108 mmol/L [facility] POTASSIUM 4.1 3.3 - 5.1 mmol/L [facility] CO2 26 21 - 35 mmol/L [facility] BUN 9 6 - 19 mg/dL [facility] CREATININE <0.50(L) 0.5 - 1.5 mg/dL [facility] GLUCOSE 96 70 - 99 mg/dL [facility] CALCIUM 9.2 8.4 - 10.3 mg/dL [facility] EGFR Test Not Performed. >60 mL/min/1.7 3m2 [facility] Comment:Abnormal if <60. If patient is -[place], multiply the result by 1.21. ANION GAP 19 10 - 20 mmol/L [facility] Blood 09/11/2017 8:25 AM EST 09/11/2017 12:17 PM EST us Angel Mariano MD LAB BLOOD ORDERABLES Final Resul t Performing Organization Address City/[facility]/ZIP Co de Phone Number [address] [address] documented in this encounter Visit Diagnoses Diagnosis Moderate persistent asthma, unspecified whether complicated- Primary Essential hypertension, benign Hyperlipidemia, unspecified hyperlipidemia type documented in this encounter Care Teams Avionics Systems Repairer Relationship Specialty Start Date End Date Angel Mariano MD [email or web address] PCP - General Family Medicine 09/11/17 documented as of this encounter Additional Source Comments The information contained in this document represents components of the legal health record. It is not the complete legal health record.[facility]
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
== END 2025-05-19 12:01 | disposition home or self-care (01) ==
LOC: HO.HMCFM 10:49
PROVIDERS: PCP Family Medicine; Visit Provider Family Medicine
DX: Z91.81 History of falling (principal); M25.539 Pain in unspecified wrist; R74.8 Abnormal levels of other serum enzymes

== ENCOUNTER → 2025-05-19 10:48 | Outpatient (BNVA) | payer OTHER, SELFPAY | PROVIDERS: PCP Family Medicine; Visit Provider Family Medicine | DX: R73.03 Prediabetes (principal); R74.8 Abnormal levels of other serum enzymes; M25.539 Pain in unspecified wrist; Z91.81 History of falling | CPT/HCPCS: 99212 ==

== ENCOUNTER 2025-05-26 14:47 | Outpatient (REF) | payer OTHER, SELFPAY ==
--- NOTE | ~2025-05-26 | XR_ITS ---
EXAMINATION: XR KNEE, RIGHT CLINICAL INFORMATION: M25.561 - Pain in right knee COMPARISON: October 09, 2024 TECHNIQUE: Three views of the right knee. FINDINGS: There is no joint effusion. There is mild narrowing of medial and lateral joint spaces, similar to the prior. There is faint amorphous calcification in the medial and lateral menisci. There are tricompartmental marginal osteophytes. There is a superior patellar enthesophytes. 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 Electronically signed by: Gilberto Brady MD 05/26/2025 03:11 PM EDT
== END 2025-05-26 14:48 | disposition home or self-care (01) ==
LOC: HO.HOSX 14:47
PROVIDERS: PCP Family Medicine; Visit Provider Orthopaedic Surgery
DX: M17.11 Unilateral primary osteoarthritis, right knee (principal)
CPT/HCPCS: 20610; 73562; 99212; J2003; J7318

== ENCOUNTER 2025-05-26 14:47 | Outpatient (AMB) | payer OTHER, SELFPAY ==
--- OUTSIDE RECORDS SUMMARY | 2024-06-19 09:40 | XMS_ITS ---
Author Organization Total [facility] Address [address] [place] [address] Care Team Providers Care Systems Development Consultant Name Role Phone BRITNEY STOREY Primary Care Provider Unavailab Debo Seymour Unavailable [phone] REASON FOR VISIT ULTRA - BLOATING PAIN Encounters Encounter Location Date Provider Diagnosis [facility] [address] [address] 06/19/2024 Debo Patel Plan Of Treatment Next Appt Details Provider Name:Debo head, 06/10/2025 02:40:00 PM, [address] [place] [address], [address] , [place], [address], Progress Notes * JAIME SÁNCHEZDOB:1970 (55 yo F)Acc No.[id number]:06/19/2024 PROGRESS NOTES Patient: JAIME CARVAJAL Appointment Provider: Jennifer Patel M.D. :1970 A ge:54 Y S ex:Female Date:06/19/2024 Address:[address] [place], [place] [phone] Pcp:BRITNEY STOREY Subjective: * Chief Complaints: * 1 . ULTRA - BLOATING PAIN. * Medical History: Objective: * Vitals: Assessment: Plan: * Treatment: * Images: Billing Information: * Visit Code: * Procedure Codes: * Electronic signature of Mary Patel MD on 05/26/2025 at 08:58 PM EDT Sign off status: Pending * Appointment Provider: Jennifer Patel M.D. Date: 08/19/2023 Generated for Jasmyn gordon/Linda/Fredrick on: 08:58 PM EDT
--- NOTE | 2025-05-26 14:56 | MHC.OFFVIS ---
Intake Visit Reasons: Right knee pain Intake Note: Josselin is a 55 year old female who presents with complaints of right knee pain. At her last visit she was given a Durolane injection into her left knee. She got very good relief from that injection. The patient states that she fell approximately 1 month ago onto her right knee and left wrist. She is currently being treated by another specialist for a left wrist fracture. She describes her right knee pain as achy in nature. She denies any locking or giving way. She has tried Tylenol and anti-inflammatory medicines which gave her mild relief. Allergies Penicillins (PENICILLINS) Allergy (Severe, Verified 05/26/25 14:56) ANAPHYLAXIS simvastatin Allergy (Mild, Verified 05/26/25 14:56) weird feeling ibuprofen Adverse Reaction (Intermediate, Verified 05/26/25 14:56) stomach upset, irritates [facility] Medication List - Last Reconciled 05/26/25 by Andrea Ponce MD acetaminophen ER (Tylenol 8 Hour) 1,300 mg PO Q12H PRN adalimumab (Humira(CF) Pen) 40 mg subcut Q2W albuterol sulfate 2.5 mg (3 mL) inhalation Q4-6H PRN 30 days albuterol sulfate 90 mcg/actuation 2 puffs inhalation QID PRN alendronate 70 mg PO QWEEK 28 days azelastine intranasal budesonide 32 mcg/actuation 1 spray intranasal DAILY cholecalciferol (vitamin D3) 50 mcg PO DAILY 3 months clotrimazole 1% 1 appful vaginal BEDTIME PRN clotrimazole-betamethasone 1-0.05 % 1 appl topical BID 2 weeks coenzyme Q10 (Co Q-10) 100 mg PO DAILY cranberry extract 250 mg PO DAILY cyanocobalamin (vitamin B-12) 1,000 mcg PO DAILY 30 days docusate sodium 200 mg (2 x 100 mg) PO BID epinephrine (EpiPen 2-Isma) 0.3 mg (0.3 mL) IM Q10M PRN estradiol 0.01%(0.1mg/gram) Start with application daily for 2 weeks. pea-sized to urethra 3 times a week following 30 days fluticasone propion-salmeterol 500-50 mcg/dose (Advair Diskus) 1 inh inhalation Q12H lamotrigine (Lamictal) 100 mg PO DAILY loratadine 10 mg PO DAILY 90 days lorazepam 0.5 mg PO BID PRN mesalamine 1,200 mg (3 x 400 mg) PO BID montelukast 10 mg PO DAILY nystatin 5 mL PO DAILY 10 days nystatin 5 mL PO DAILY 10 days nystatin-triamcinolone 100,000-0.1 unit/g-% 1 appl topical TID omeprazole 20 mg PO DAILY rosuvastatin 40 mg PO DAILY tizanidine 2 mg PO TID PRN 30 days PFSH Medical History Tubular adenoma Chronic idiopathic constipation Crohn disease Unspecified asthma, uncomplicated Dysuria Surgical History Hx of colonoscopy History of esophagogastroduodenoscopy (EGD) No pertinent past surgical history Family History Father Suicide Mother Hypertension Diabetes Paternal Grandmother Stroke Brother In good health Sister In good health Social History Housing: Other Housing Other:: mobile home Alcohol intake: current Alcohol intake frequency: does not drink Patient Tobacco Use Status: Never used Tobacco e-Cigarette/Vaping Use: Never Used Second Hand Smoke Exposure: Yes service: No Current occupational status: disabled Current occupational exposures/hazards: No Cognitive needs: No Hearing needs: No Vision needs: No Physical Exam Const Other: Well-nourished well-developed very friendly female awake alert and oriented x3 in no acute distress Extrem Other: Right knee examination shows a mild effusion, palpable crepitus with range of motion, pain with range of motion, no instability Office Procedures AMB Joint Injection/Aspiration Joint Injection/Aspiration Primary Site: right knee Prep: site was prepped using aseptic technique Injected: 60 mg of (Durolane viscosupplementation), with 4 mL of and 1% plain lidocaine Procedure: The patient tolerated the procedure well Coding 74166 - Large joint Procedure code (CPT) selection complete Results Reviewed Results Reviewed: X-rays of the patient's right knee taken today show mild to moderate diffuse joint space narrowing, no acute bony abnormalities Assessment & Plan Assessment & Plan (1) Osteoarthritis of right knee: Code(s): M17.11 - Unilateral primary osteoarthritis, right knee Category: Medical (2) Right knee pain: Code(s): M25.561 - Pain in right knee Category: Medical Plan Ms. Harrington presents with right knee pain due to osteoarthritis. The risks and benefits of a right knee Durolane viscosupplementation injection were discussed at length with the patient. The patient wished to proceed. She tolerated the injection well. She will continue with her activity modifications. She will contact me prior to her follow-up appointment in 3 months should any questions or concerns arise. Feel free to call me at any time should questions regarding her orthopedic management arise. I spent 21 minutes in reviewing the patient's records and imaging studies, seeing the patient and documenting in the medical record. Orders: Orders XR knee RT 3V Today M25.561 - Pain in right knee AMB Joint Injection/Aspiration Today M17.11 - Unilateral primary osteoarthritis, right knee Coding Level of Care Code Est Pt Level 3 (75820) Complex EM visit Add On G2211 Diagnoses Osteoarthritis of right knee M17.11 Right knee pain M25.561 CPT Codes Coding - 91420 Large joint: 00998 - Large joint ([id number])
--- OUTSIDE RECORDS SUMMARY | 2025-05-26 20:58 | XMS_ITS | Patient Health Record ---
Author Organization [facility] Address [address] [place] [address] Care Team Providers Care Ammonia Box Tender Name Role Phone Bindu Sanders MD Primary Care Provider Boris Carbajal Jr Unavailable [phone] Allergies Allergen (clinical drug ingredient) Drug/Non [...] Risk Notes Problem Liver function tests abnormal ([id number]) Nonspecific abnormal results of liver function study [...] OF [address] [place] SANCHEZ [id number] Josselin Harrington Self - patient is the insured MEDICAID OF [facility] [address] [place] [address] [id number] Josselin Harrington Self - patient is the insured Medical (General) History Medical History History ICD Code back and hip pain following a fall hypertension depression anxiety esophageal reflux elevated lipids low vitamin D level
--- OUTSIDE RECORDS SUMMARY | 2025-05-26 20:58 | XMS_ITS | Clinical Summary ---
Author Organization [address] Address [address] [place] [phone] Phone Care Team Providers Care Customs Examiner Name Role Phone Lisa Santos MD Primary Care Provider [phone] Allergies Active Allergy Reactions Criticality Noted Date [...] time each day. 2 Active sodium chloride ([place] Saline) 0.65 % nasal drops 3 Drops by Each Nare route 3 times daily. 1 Active tiZANidine (ZANAFLEX) 2 mg capsule Take 1 capsule by mouth at bedtime as needed for Muscle spasms. 1 Active coenzyme Q-10 10 mg capsule Take by mouth. 7 Active Active Problems Problem Noted Date Diagnosed Date Ankylosing spondylitis ([facility] V24, [facility] V28 ) 08/07/2024 Overview (08/07/2024): Onset ~ : SI joint fusion, fused LS and T spine Humira started December 2015- held in the summer due to dental problems Episode of Iritis - 05/23 Hepatic steatosis 08/07/2024 Morbid obesity with BMI of 4 0.0-44.9, adult ([facility] V24, [facility] V28) 08/07/2024 Chronic rhinitis 09/23/2019 Vitamin B12 deficiency 05/20/2019 Snoring 01/05/2019 Overview (08/07/2024): 12/2018 Home Sleep Study did not reveal sleep apnea or nocturnal hypoxia. 04/2019 Diagnostic polysomnogram did not reveal ELIJAH or nocturnal hypoxia. Crohn's disease of large int estine without complication ([facility] V24, [facility] V28) 08/11/2018 RLS (restless legs syndrome) 05/28/2018 Thyroid nodule 12/10/2017 Fracture of lumbar spine ([facility] V24, [facility] V 28) 08/05/2017 Overview (08/07/2024): Macario fracture Sternal fracture 08/05/2017 Fracture of rib of left side 08/05/2017 Overview (08/07/2024): Left 7th and 8th fracture Lung nodules 05/05/2016 Overview (08/07/2024): on imaging at [facility], followed by Dr. Gaytan. CAT scan 04/23/17: [...] ascending colitis on bxy ESOPHAGOGASTRODUODENOSCOPY 09/12/2015 PROCEDURE: OK ESOPHAGOGASTRODUODENOSCOPY TRANSORAL DIAGNOSTIC; COMMENT: Normal with nl duodenal, antral and GE junction bxys BREAST BIOPSY 06/25/2018 Left PROCEDURE: BX BREAST; PERC NEEDLE CORE W/IMAG GUID; COMMENT: BENIGN FIBROADENOMATOUS CHANGES. OTHER SURGICAL HISTORY 02/2021 PROCEDURE: MAMMOGRAM, SCREENING, BOTH BREASTS Medical History Medical History Date Comments Depression with anxiety 10/06/2015 DX:Depre ssion with anxiety; COMMENT: [facility] - therapist Khushi triyohana to see her once in a week Hypercholesteremia 10/06/2015 DX:Hyperchole steremia Asthma 10/06/2015 DX:Asthma; COMME NT: Dr. Gaytan Ulcerative colitis ([facility] V24, [facility] V28) DX:Ulcerative colitis (HCC); COMMENT: Dr. Baez Ankylosing spondylitis ([facility] V24, [facility] V28) DX:Ankylosing spondylitis (H CC); COMMENT: Dr. Mckay Hepatic steatosis DX:Hepatic sher atosis Pelvic pain 11/24/2015 DX:Pelvic pain Iron deficiency anemia 11/25/2015 DX:Iron d eficiency anemia Vitamin D deficiency 11/25/2015 DX:Vitamin D deficiency Disc disease, degenerative, cervical 12/13/2015 DX:Disc disease, degenerative, cervical Lung nodules 05/2016 DX:Lung nodules; COMMENT: on imaging at [facility], followed by Dr. Gaytan. Fracture of rib of left side 08/2017 DX: Fracture of rib of left side; COMMENT: Left 7th and 8th fracture Fracture of lumbar spine (CM S/HCC V24, [facility] V28) 08/2017 DX:Fracture of lumbar spine (HCC); COMMENT: Macario fracture Sternal fracture 08/2017 DX:Sternal frac ture Crohn's disease (CMS/HCC V24 , [facility] V28) DX:Crohn's disease (HCC) Family [...] is recommended in 1 year. MAMMO LOCATION: [facility], [address] [place] [address], [address], . -------- FINAL REPORT -------- Dictated By: Roselyn Martinez Dictated Date: 09/03/2024 08:19 ET Assigned Physician: Roselyn Martinez Reviewed and Electronically Signed By: Roselyn Martinez Signed Date: 09/03/2024 08:24 ET Workstation ID: [id number] Transcribed By: Self Edit Transcribed Date: 09/03/2024 [...] is recommended in 1 year. MAMMO LOCATION: [facility], [address] [place] [address], [address], . -------- FINAL REPORT -------- Dictated By: Roselyn Martinez Dictated Date: 09/03/2024 08:19 ET Assigned Physician: Roselyn Martinez Reviewed and Electronically Signed By: Roselyn Martinez Signed Date: 09/03/2024 08:24 ET Workstation ID: [id number] Transcribed By: Self Edit Transcribed Date: 09/03/2024 08:19 ET Result [facility] Lisa Santos MD IMG BI PROCEDURES Final Result * Annual BMP Blood Test (12/06/2020) Pathologist [facility] Annual BMP Blood Test abstracted Result [facility] Provider HEALTH MAINTENANCE Final Result * Hepatitis C Screening (12/06/2020) [facility] Hepatitis C Screening abstracted Result [facility] Provider HEALTH MAINTENANCE Final Result * (ABNORMAL) Lipid panel (08/21/2019) [facility] LDL/HDL Ratio 4 0 - 4 Triglycerides 186(A) 0 - 150 mg/dL Cholesterol 198 0 - 200 mg/dL HDL 56 >=40 mg/dL LDL Cholesterol 105(A) 0 - 100 mg/dL Blood Venous blood specimen / Unknown Result [facility] Provider LAB BLOOD ORDERABLES Micaela l Result * HIV Screening (01/10/2018) [facility] HIV Screening abstracted Result [facility] HEALTH MAINTENANCE Final Result * Cervical Cancer Screening: HPV (12/12/2015) Cervical Cancer Screening: HPV abstracted, negative Historical Provider HEALTH MAINTENANCE Final Result * Colonoscopy (09/12/2015) Colonoscopy no interpretation , abstracted Anatomical Region Laterality Modality Other us Historical Provider HEALTH MAINTENANCE Final Result from Last 3 Months or Most Recently Relevant to Health Maintenance Insurance [facility] MEDICARE Member Subscriber Plan / Payer (Ef fective 2016-Present) Name:Josselin Harrington Relation to Subscriber:Self Name:Josselin Harrington Payer ID:[id number] Group ID:[id number] Type:Not on file Address: [place] [address] [address] [address] Care Teams Customs Examiner Relationship Specialty Start Date End Date Lisa Santos MD [address] [place] [address] PCP - General Internal Medicine 02/15/22
--- OUTSIDE RECORDS SUMMARY | 2025-05-26 20:58 | XMS_ITS | Clinical Summary ---
Author Organization [facility] Address [address] [facility] [address] [place] [address] Phone Care Team Providers Care Medical Collections Name Role Phone Angel Mariano MD Primary Care Provider [phone] Social History Tobacco Use Types Packs/Day Years [...] topic Medical Devices Not on file Insurance [facility] MEDICARE PART A & [place] & [place] & [place] & B Care Teams Medical Collections Relationship Specialty Start Date End Date Angel Mariano MD [email or web address] PCP - General Family Medicine 09/11/17 Additional Source Comments The information contained in this document represents components of the legal health record. It is not the complete legal health record.[facility]
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
--- OUTSIDE RECORDS SUMMARY | 2025-05-26 20:58 | XMS_ITS | Encounter Summary ---
Author Organization [facility] Address [address] [place] [address] Phone Care Team Providers Care Theatrical Performer Name Role Phone Unknown, Unknown Primary Care Provider Angel Espinoza MD Primary Care Provider [phone] Encounter Details Date Type Department Care Team (Late st Contact Info) Description 09/02/2017 Transcribe Orders [facility] Specimen Processing [address] [place] [address] Angel Mariano MD [address] [facility] [address], [address] [place] [address] [email or web address] Examination (Primary Dx) Social History Tobacco Use [...] EST) SODIUM 141 133 - 146 mmol/L [facility] POTASSIUM 4.7 3.3 - 5.1 mmol/L [facility] CHLORIDE 100 96 - 108 mmol/L [facility] CO2 29 21 - 35 mmol/L [facility] BUN 12 6 - 19 mg/dL [facility] CREATININE 0.50 0.5 - 1.5 mg/dL [facility] GLUCOSE 85 70 - 99 mg/dL [facility] ALBUMIN 4.2 3.9 - 4.8 g/dL [facility] TOTAL PROTEIN 7.1 6.5 - 8.0 g/dL [facility] CALCIUM 9.5 8.4 - 10.3 mg/dL [facility] ALKALINE PHOSPHATASE 118(H) 39 - 117 U/L [facility] TOTAL BILIRUBIN 0.4 0 - 1.2 mg/dL [facility] AST 19 0 - 37 U/L [facility] ALT 23 0 - 40 U/L [facility] GLOBULIN 2.9 1 - 4.8 g/dL [facility] EGFR >60 60 - 1000 mL/min/1.7 3m2 [facility] Comment:Abnormal if <60. If patient is -Burundian, multiply the result by 1.21. ANION GAP 17 10 - 20 mmol/L [facility] Blood 09/02/2017 8:20 AM EST 09/02/2017 11:12 AM EST us Angel Mariano MD LAB BLOOD ORDERABLES Final Resul t Performing Organization Address City/State/[facility] Co de Phone Number [facility] [address] [place] [address] * (ABNORMAL) CBC (09/02/2017 8:20 AM EST) WBC 7.10 3.40 - 11.20 K/uL [facility] RBC 4.35 3.80 - 4.80 M/uL [facility] HGB 11.0(L) 12.0 - 15.0 g/dL [facility] HCT 35.2(L) 36.0 - 46.0 % [facility] PLT 398 130 - 400 K/uL [facility] MCV 80.9 79.0 - 98.0 fL [facility] MCH 25.3(L) 27.0 - 34.8 pg [facility] MCHC 31.3(L) 31.5 - 36.0 g/dL [facility] RDW 16.2(H) 10.8 - 14.6 % [facility] MPV 9.8 9.4 - 12.4 fl [facility] NRBC 0.00 /100 WBCs [facility] ABSOLUTE NRBC 0.00 K/uL [facility] Blood 09/02/2017 8:20 AM EST 09/02/2017 11:12 AM EST us Angel Mariano MD LAB BLOOD ORDERABLES Final Resul t [address] [address] documented in this encounter Visit Diagnoses Diagnosis Examination- Primary Unspecified examination documented in this encounter Care Teams Theatrical Performer Relationship Specialty Start Date End Date Unknown, Unknown, MD PCP - General 09/02/17 09/10/17 Angel Mariano MD [email or web address] PCP - General Family Medicine 09/11/17 documented as of this encounter Additional Source Comments The information contained in this document represents components of the legal health record. It is not the complete legal health record.[facility]
--- OUTSIDE RECORDS SUMMARY | 2025-05-26 20:58 | XMS_ITS | Encounter Summary ---
Author Organization [facility] Address [address] [place] [address] Phone Care Team Providers Care Button And Buckle Maker Name Role Phone Unknown, Unknown Primary Care Provider Angel Espinoza MD Primary Care Provider [phone] Encounter Details Date Type Department Care Team (Late st Contact Info) Description 09/07/2017 Transcribe Orders [facility] Specimen Processing [address] [place] [address] Angel Mariano MD [address] [place] [address] [address], [address] [place] [address] [email or web address] Fever, unspecified fever cause (Primary Dx); Malaise [...] PM EST) Influenza A Ag Negative Negative [facility] Influenza B Ag Negative Negative [facility] Other (Nasal) 09/07/2017 12: 00 PM EST 09/07/2017 3:52 PM EST us Angel Mariano MD MICROBIOLOGY - GENERAL ORDERABLE S Final Result [facility] [address] [place] [address] documented in this encounter Visit Diagnoses Diagnosis Fever, unspecified fever cause- Primary Malaise Other malaise and fatigue documented in this encounter Care Teams Button And Buckle Maker Relationship Specialty Start Date End Date Unknown, Unknown, MD PCP - General 09/02/17 09/10/17 Angel Mariano MD [email or web address] PCP - General Family Medicine 09/11/17 documented as of this encounter Additional Source Comments The information contained in this document represents components of the legal health record. It is not the complete legal health record.[facility]
--- OUTSIDE RECORDS SUMMARY | 2025-05-26 20:59 | XMS_ITS | Patient Health Record ---
Author Organization [facility] Address [address] [place] [address] Care Team Providers Care Shredded Filler Hopper Feeder Name Role Phone BRITNEY STOREY Primary Care Provider Unavailab Debo Seymour Unavailable [phone] Allergies Allergen (clinical drug ingredient) Drug/Non Drug [...] a day; Duration: 30 day(s) Active Nystatin 491479 UNIT/GM 1 application Ex ternally Twice a [...] Status W/U Status Risk Notes Problem Menopause (038612083) Menopausal and female climacteric states (N95.1) Active confirmed Problem Postmenopausal atrophic vaginitis (60969276) Postmenopausal atrophic vaginitis (N95.2) Active confirmed Problem Polycystic ovary syndrome (disorder) (361534217) Polycystic ovarian syndrome (E28.2) Active confirmed Problem Morbid obesity (disorder) (944823130) Morbid (severe) obesity due to excess calories (E66.01) Active confirmed Problem Hyperlipidemia (10607061) Hyperlipidemia, unspecified (E78.5) Active confirmed Problem Recurrent depression (831853178) Other recurrent depressive disorders (F33.8) Active confirmed Problem Anxiety disorder (226919575) Anxiety disorder, unspecified (F41.9) Active confirmed Problem Vitreous opacities (449756986) Other vitreous opacities, unspecified eye (H43.399) Active confirmed Problem Asthma (597293513) Other asthma (J45.998) Active confirmed Problem Crohn's disease (61454409) Crohn's disease, unspecified, with unspecified complications (K50.919) Active confirmed Problem Fatty liver (418411759) Fatty (change of) liver, not elsewhere classified (K76.0) Active confirmed Problem Ankylosing spondylitis (3057928) Ankylosing spondylitis of unspecified sites in spine (M45.9) Active confirmed Problem Gastroesophageal reflux disease with esophagitis (disorder) (120910148) Gastro-esophageal reflux disease with esophagitis, without bleeding (K21.00) Active confirmed Vital Signs Temperature 97.4 degrees Fahrenheit 06/03/2024 Blood pressure diastolic 84 mm Hg 06/03/2024 Height 59 in 06/03/2024 Blood pressure systolic 124 mm Hg 06/03/2024 Weight 193 lbs 06/03/2024 BMI 38.98 kg/m2 06/03/2024 Encounters Encounter Location Date Provider Diagnosis [place] [address] [employer] [address] [address] 06/19/2024 Debo Patel [address] [address] 06/03/2024 Debo Patel Encounter for gynecological examination (general) (routine) without abnormal findings Z01.419 ; Encounter for screening mammogram for malignant neoplasm of breast Z12.31 and Acute candidiasis of vulva and vagina B37.31 [facility] [address] [address] 07/30/2024 Debo Patel Assessments Encounter Date Diagnosis [...] Provider Name:Debo head, 06/10/2025 02:40:00 PM, [address], [place], [address], Insurance Providers Payer Name Payer Address Payer Phone Subscriber Number Group Number Insured Name Patient Relationship to Insured Coverage Start Date Coverage End Date [place] [id number] JAIME SÁNCHEZ Self - patient is the [...]
--- OUTSIDE RECORDS SUMMARY | 2025-05-26 20:59 | XMS_ITS | Encounter Summary ---
Author Organization [facility] Address [address] [place] [address] Phone Care Team Providers Care Asphalt Mixer Name Role Phone Angel Mariano MD Primary Care Provider [phone] Encounter Details Date Type Department Care Team (Latest Contact Info) Description 09/11/2017 Transcribe Orders [facility] Specimen Processing [address] [place] [address] Angel Mariano MD [address] [facility], [address], [address] [place] [address] [email or web address] Moderate persistent asthma, unspecified whether complicated (Primary [...] EST) WBC 3.31(L) 3.40 - 11.20 K/uL [facility] RBC 4.59 3.80 - 4.80 M/uL [facility] HGB 11.5(L) 12.0 - 15.0 g/dL [facility] HCT 35.5(L) 36.0 - 46.0 % [facility] PLT 358 130 - 400 K/uL [facility] MCV 77.3(L) 79.0 - 98.0 [facility] MCH 25.1(L) 27.0 - 34.8 pg [facility] MCHC 32.4 31.5 - 36.0 g/dL [facility] RDW 15.6(H) 10.8 - 14.6 % [facility] MPV 9.9 9.4 - 12.4 [facility] NRBC 0.00 /100 WBCs [facility] ABSOLUTE NRBC 0.00 K/uL [facility] Blood 09/11/2017 8:25 AM EST 09/11/2017 12:17 PM EST us Angel Mariano MD LAB BLOOD ORDERABLES Final Resul t Performing Organization Address City/[facility]/ZIP Co de Phone Number [address] [address] * (ABNORMAL) Basic metabolic panel (09/11/2017 8:25 AM EST) SODIUM 142 133 - 146 mmol/L [facility] CHLORIDE 101 96 - 108 mmol/L [facility] POTASSIUM 4.1 3.3 - 5.1 mmol/L [facility] CO2 26 21 - 35 mmol/L [facility] BUN 9 6 - 19 mg/dL [facility] CREATININE <0.50(L) 0.5 - 1.5 mg/dL [facility] GLUCOSE 96 70 - 99 mg/dL [facility] CALCIUM 9.2 8.4 - 10.3 mg/dL [facility] EGFR Test Not Performed. >60 mL/min/1.7 3m2 [facility] Comment:Abnormal if <60. If patient is -Trinidadian, multiply the result by 1.21. ANION GAP 19 10 - 20 mmol/L [facility] Blood 09/11/2017 8:25 AM EST 09/11/2017 12:17 PM EST us Angel Mariano MD LAB BLOOD ORDERABLES Final Resul t Performing Organization Address City/[facility]/ZIP Co de Phone Number [address] [address] documented in this encounter Visit Diagnoses Diagnosis Moderate persistent asthma, unspecified whether complicated- Primary Essential hypertension, benign Hyperlipidemia, unspecified hyperlipidemia type documented in this encounter Care Teams Asphalt Mixer Relationship Specialty Start Date End Date Angel Mariano MD [email or web address] PCP - General Family Medicine 09/11/17 documented as of this encounter Additional Source Comments The information contained in this document represents components of the legal health record. It is not the complete legal health record.[facility]
--- OUTSIDE RECORDS SUMMARY | 2025-05-26 20:59 | XMS_ITS | Data Portability ---
Author Organization [place] [facility] Address [address] [place] [address] Care Team Providers Care Plate Mill Mill Hand Name Role Phone [facility] Primary Care Provider OPTUM WICHITA FAX OTHER Assessment Encounter Date Assessment Date Assessment LastModified by Organization Details LastModified Time 09/03/2021 09/03/2021 Proper Personal Protective Equipment (PPE), including gloves, eye protection and masks were donned and doffed appropriately and all equipment cleaned using approved technique with germicidal disposable wipes prior to and after care of this patient according to [facility]'s infection prevention protocols. Overview/History : 51 [...] encouraged to seek pulmonary consult through PCP [email or web address] Not available 09/03/2021 12:56:33 Plan of Treatment Reminders Order Date Submit Date Provider Last Modified By Organization Details Last Modified Time Details Appointments None recorded. Lab unlisted lab - covid-19 (novel coronavirus ) PCR 2021 [place] [place] (Centralized Electronic Ordering - All Locations), Patient Can Go To The Location Of Their Choice, [id number] 13:16:40 Referral None recorded. Procedures None recorded. Surgeries None recorded. Imaging None recorded. Medication Orders benzonatate 200 mg capsule 2021 [facility] [place], [place], [address], [place], [address], 13:01:10 Patient TargetsNo targets recorded. Patient Instructions Encounter Date Encounter Id Patient Instructions Last Modified By Organization Details Last Modified Time 09/03/2021 [id number] Inhaler Instructions Before use, you need to [...] after cleaning actually helps it work better. [email or web address] Not available 09/03/2021 11:39:16 Reason for Referral [...] ng. Resul t repor sandee to the [facility]. This test has been autho rized by the FDA under an Emerg ency Use Autho rizat ion (EUA) for use by autho rized labor atori es. Test perfo rmed by [facility] at the [facility] and Abhijeet gutierrez, [address] [place] [address] . CLIA ID: [id number] , CAP: [id number] 96. Medic al Direc tor: Ruma Ramirez, [...] limit ed to the [facility] Se[facility] orm at the [facility] which is certi fied under the Clini [...] Go To The Location Of Their Choice, [id number] 09/05/2021 13:16:40 Result Notes None recorded. Procedures Surgical History Date Name Laterality Status Provider Name and Address Organization Details Recorded Time 09/03/19 22 ECG Interpretation - completed MARGARET Bazzi [address], [place], [address], [place] [facility] 09/03/2021 12:41:20 Imaging Results [...] 0.3 mg (0.3 mL) Into the muscle [id number] As Needed for anaphylaxis ; for 2 [...] Not Available Not Available No t Available [place] Saline 0.65 % nasal drops active Not [...] ICD10 Code Diagnosis IMO Codes Diagnosis Note [id number] MARGARET Bazzi [facility] [address] [place] [address] 09/03/2021 11:37:26 09/04/2021 08:55:24 Viral upper respiratory tract infection 764801393 J06.9 Exposure t o communicable disease 023090413 Z20.822 Health Concerns Section Related Observation LastModified by Organization Detai ls LastModified Time None Recorded Concern Status LastModified by Organization Details LastModified Time None Recorded Advance Directives Directive None Recorded Payers Insurance Date Sequence Insurance Name Policy Number Policy Mckeon Covered Member ID Mckeon Member ID Guarantor Name 09/04/2021 1 [facility] - DOS PRIOR TO 2022 - DUAL ELIGIBLE (MEDICARE REPLACEMENT/ADV ANTAGE - HMO) Josselin Harrington [id number] Josselin Harrington 09/03/2021 1 *SELF PAY* Josselin Harrington [id number] Josselin Harrington 09/03/2021 1 [place]: [employer] Josselin Harrington [id number] Josselin Harrington 09/03/2021 1 [facility] - DOS PRIOR TO 2022 - DUAL ELIGIBLE (MEDICARE REPLACEMENT/ADV ANTAGE - HMO) Josselin Harrington [id number] Josselin Harrington Notes Date Note Type Note [...] a heart attack-no smoking, no hx of SC/CVA, reports cholesterol is fine , and denies any family hx of CAD. MARGARET Bazzi [address], [place], [address], [place] [facility] 09/03/2021 12:56:49 OBGyn Episode No OBEpisode recorded.
== END 2025-05-26 15:23 | disposition home or self-care (01) ==
LOC: HO.HOS 14:48
PROVIDERS: PCP Family Medicine; Visit Provider Orthopaedic Surgery
DX: M17.11 Unilateral primary osteoarthritis, right knee (principal); M25.561 Pain in right knee
CPT/HCPCS: 20610; 99213

== ENCOUNTER → 2025-05-26 14:57 | Outpatient (BNV) | payer OTHER, SELFPAY | PROVIDERS: PCP Family Medicine; Visit Provider Radiology Diagnostic Radiology | DX: M17.11 Unilateral primary osteoarthritis, right knee (principal) | CPT/HCPCS: 73562 ==

== ENCOUNTER 2025-06-02 14:03 | Outpatient (AMB) | payer OTHER, SELFPAY ==
--- OUTSIDE RECORDS SUMMARY | 2024-06-19 09:40 | XMS_ITS ---
Author Organization Total [employer] [facility] Address [address] [place] [address] Care Team Providers Care Sample Builder Name Role Phone BRITNEY STOREY Primary Care Provider Unavailab Debo Seymour Unavailable [phone] REASON FOR VISIT ULTRA - BLOATING PAIN Encounters Encounter Location Date Provider Diagnosis [facility] [employer] [address] [address] 06/19/2024 Debo Patel Plan Of Treatment Next Appt Details Provider Name:Debo head, 06/10/2025 02:40:00 PM, [address] [place] [address], [address], [place], [address], Progress Notes * JAIME SÁNCHEZDOB:1970 (55 yo F)Acc No.[id number]:06/19/2024 PROGRESS NOTES Patient: JAIME CARVAJAL Appointment Provider: Jennifer Patel M.D. :1970 A ge:54 Y S ex:Female Date:06/19/2024 Address:[address] [place], [place] [phone] Pcp:BRITNEY STOREY Subjective: * Chief Complaints: * 1 . ULTRA - BLOATING PAIN. * Medical History: Objective: * Vitals: Assessment: Plan: * Treatment: * Images: Billing Information: * Visit Code: * Procedure Codes: * Electronic signature of Mary Patel MD on 06/02/2025 at 06:05 PM EDT Sign off status: Pending * Appointment Provider: Jennifer Patel M.D. Date: 08/19/2023 Generated for Jasmyn gordon/Linda/Fredrick on: 06:05 PM EDT
[2025-06-02 14:11] VITALS: BP 124/84; PULSE 89
--- NOTE | 2025-06-02 14:11 | A.OFFVIS_ITS ---
Vital Signs 06/02/25 14:11 Height 5 ft BMI Reason not done Patient refused/unable BP 124/84 Blood Pressure Location Rt brachial Position Sitting Pulse 89 Pulse Source Monitor Intake Visit Reasons: over due f/up dr dudley pt Personalization Specialist Required: No Accompanied by: Spouse Allergies Penicillins (PENICILLINS) Allergy (Severe, Verified 06/02/25 14:16) ANAPHYLAXIS simvastatin Allergy (Mild, Verified 06/02/25 14:16) weird feeling ibuprofen Adverse Reaction (Intermediate, Verified 06/02/25 14:16) stomach upset, irritates Jenniferutn's Medication List - Last Reconciled 06/02/25 by Arron Sousa NP acetaminophen ER (Tylenol 8 Hour) 1,300 mg PO Q12H PRN adalimumab (Humira(CF) Pen) 40 mg subcut Q2W albuterol sulfate 2.5 mg (3 mL) inhalation Q4-6H PRN 30 days albuterol sulfate 90 mcg/actuation 2 puffs inhalation QID PRN azelastine intranasal budesonide 32 mcg/actuation 1 spray intranasal DAILY cholecalciferol (vitamin D3) 50 mcg PO DAILY 3 months clotrimazole 1% 1 appful vaginal BEDTIME PRN clotrimazole-betamethasone 1-0.05 % 1 appl topical BID 2 weeks coenzyme Q10 (Co Q-10) 100 mg PO DAILY cranberry extract 250 mg PO DAILY cyanocobalamin (vitamin B-12) 1,000 mcg PO DAILY 30 days docusate sodium 200 mg (2 x 100 mg) PO BID epinephrine (EpiPen 2-Isma) 0.3 mg (0.3 mL) IM Q10M PRN estradiol 0.01%(0.1mg/gram) Start with application daily for 2 weeks. pea-sized to urethra 3 times a week following 30 days fluticasone propion-salmeterol 500-50 mcg/dose (Advair Diskus) 1 inh inhalation Q12H ibuprofen 400 mg PO Q8H PRN lamotrigine (Lamictal) 100 mg PO DAILY loratadine 10 mg PO DAILY 90 days lorazepam 0.5 mg PO BID PRN mesalamine 1,200 mg (3 x 400 mg) PO BID montelukast 10 mg PO DAILY nystatin 5 mL PO DAILY 10 days nystatin 5 mL PO DAILY 10 days nystatin-triamcinolone 100,000-0.1 unit/g-% 1 appl topical TID omeprazole 20 mg PO DAILY rosuvastatin 40 mg PO DAILY tizanidine 2 mg PO TID PRN 30 days HPI Comments Details: This is a 55-year-old female patient with a history of asthma and obesity comes for an office visit accompanied by her . Patient was previously seen in the office for palpitations for which patient underwent a echo study in the Holter. It is difficult to get much history out of the patient and quite unclear why patient is here to see us. Patient states that she has been doing well overall except she feels a little off and wants an echo. Patient does not really describe much as to what is going on other than repeating that it feels off . Upon asking, patient denies any exertional chest pain, shortness of breath, palpitations, dizziness, orthopnea, PND, leg edema, presyncope or syncope. PFSH Medical History Tubular adenoma Chronic idiopathic constipation Crohn disease Unspecified asthma, uncomplicated Dysuria Surgical History Hx of colonoscopy History of esophagogastroduodenoscopy (EGD) No pertinent past surgical history Family History Father Suicide Mother Hypertension Diabetes Paternal Grandmother Stroke Brother In good health Sister In good health Social History Housing: Other Housing Other:: mobile home Alcohol intake: current Alcohol intake frequency: does not drink Patient Tobacco Use Status: Never used Tobacco e-Cigarette/Vaping Use: Never Used Second Hand Smoke Exposure: Yes service: No Current occupational status: disabled Current occupational exposures/hazards: No Cognitive needs: No Hearing needs: No Vision needs: No Review of Systems Const Denies daytime sleepiness, Denies difficulty sleeping, Denies snoring, Denies stops breathing during sleep and Denies weakness Card Denies chest pain, Denies rapid heart rate, Denies irregular heart rhythm, Denies claudication, Denies leg edema, Denies lightheadedness, Reports palpitations, Denies dyspnea, Denies dyspnea on exertion, Denies orthopnea, Denies paroxysmal nocturnal dyspnea and Denies slow heart rate Resp Denies cough, Denies dyspnea, Denies dyspnea on exertion and Denies snoring GI Reports no additional complaints, Denies hematochezia, Denies change in stool character and Denies dyspepsia Musc Denies abnormal gait, Denies muscle weakness and Denies numbness Neuro Denies abnormal gait, Denies numbness and Denies weakness Endo Reports palpitations Physical Exam Vital Signs: Last Vital Signs Pulse 89 06/02/25 14:11 BP 124/84 06/02/25 14:11 Const General: cooperative, healthy appearing, comfortable and no acute distress Orientation/consciousness: patient oriented x3 HEENT Head: Yes normal to inspection Neck Neck: Yes normal visual inspection, Yes trachea midline and Yes supple Chest Chest palpation & inspection: normal inspection of the chest Resp Effort & Inspection: normal respiratory effort Auscultation: clear to auscultation bilaterally, no crackles, no rales, no rhonchi and no wheezes Cardio Jugular venous distension: no JVD Palpation: normal PMI Rate: regular rate Rhythm: regular rhythm Heart sounds: S1 normal heart sound present, S2 normal heart sound present, no click, no gallops, no murmurs and no rubs Peripheral pulses: Peripheral pulses 2+ throughout GI Inspection: Yes normal to inspection Palpation (GI): Soft to palpation Auscultation: normal bowel sounds Skin General skin exam: no rashes or lesions noted Neuro General: patient oriented x3 Extrem General: Yes normal to inspection, No no pedal edema and No calf tenderness Psych Appearance: grossly normal Mental Status: mental status grossly normal Speech and movement: Normal speech and movement present Office Procedures EKG Details: EKG today shows normal sinus rhythm, rate 89 beats per minute, right bundle branch block, T-wave inversion in lead 3, possible inferior infarct and anterolateral infarct, nonspecific ST-T waves, [place], [place]. [id number], Complete Assessment & Plan Assessment & Plan (1) Palpitations: Code(s): R00.2 - Palpitations Category: Medical Plan: EKG today is unchanged. Echo from 05/22/2022 showed normal LV systolic function with the ejection fraction is 62% with mild septal and basal asymmetric hypertrophy. Holter study at that time showed normal sinus rhythm with 18% of sinus tachycardia. Clinically stable full and euvolemic. Unclear on what her symptoms truly are as she only repeats feeling off and denies any true cardiac symptoms. We will update an echo. Blood pressure today is well-controlled. Advised low-salt diet, adequate hydration, heart healthy diet, losing weight, regular exercise, and med compliance. This note was generated using voice recognition software. While every effort has been made to ensure accuracy and proper watch repair person, there may be occasional errors that could affect the content or meaning of the described symptoms. Orders: Orders CA echo transthoracic complete Today R00.2 - Palpitations AMB EKG-In Office Today R00.2 - Palpitations Coding Level of Care Code Est Pt Level 3 (82128) Diagnoses Palpitations R00.2 CPT Codes EKG - CPT: 35729-Lppzjhkxtksienyux, Complete ([id number]) Time Spent (min) 29 Comment Time spent in reviewing the chart, test results, assessment, counseling and documentation.
--- OUTSIDE RECORDS SUMMARY | 2025-06-02 18:05 | XMS_ITS | Clinical Summary ---
Author Organization [address] Address [address] [place] [address] Phone Care Team Providers Care Sales Representative Metals Name Role Phone Lisa Santos MD Primary Care Provider [phone] Allergies Active Allergy Reactions Criticality Noted Date [...] time each day. 2 Active sodium chloride ([place] Saline) 0.65 % nasal drops 3 Drops by Each Nare route 3 times daily. 1 Active tiZANidine (ZANAFLEX) 2 mg capsule Take 1 capsule by mouth at bedtime as needed for Muscle spasms. 1 Active coenzyme Q-10 10 mg capsule Take by mouth. 7 Active Active Problems Problem Noted Date Diagnosed Date Ankylosing spondylitis ([facility] V24, [facility] V28 ) 08/07/2024 Overview (08/07/2024): Onset ~ : SI joint fusion, fused LS and T spine Humira started December 2015- held in the summer due to dental problems Episode of Iritis - 05/23 Hepatic steatosis 08/07/2024 Morbid obesity with BMI of 4 0.0-44.9, adult ([facility] V24, [facility] V28) 08/07/2024 Chronic rhinitis 09/23/2019 Vitamin B12 deficiency 05/20/2019 Snoring 01/05/2019 Overview (08/07/2024): 12/2018 Home Sleep Study did not reveal sleep apnea or nocturnal hypoxia. 04/2019 Diagnostic polysomnogram did not reveal ELIJAH or nocturnal hypoxia. Crohn's disease of large int estine without complication ([facility] V24, [facility] V28) 08/11/2018 RLS (restless legs syndrome) 05/28/2018 Thyroid nodule 12/10/2017 Fracture of lumbar spine ([facility] V24, [facility] V 28) 08/05/2017 Overview (08/07/2024): Macario fracture Sternal fracture 08/05/2017 Fracture of rib of left side 08/05/2017 Overview (08/07/2024): Left 7th and 8th fracture Lung nodules 05/05/2016 Overview (08/07/2024): on imaging at [facility], followed by Dr. Gaytan. CAT scan 04/23/17: [...] ascending colitis on bxy ESOPHAGOGASTRODUODENOSCOPY 09/12/2015 PROCEDURE: [place] ESOPHAGOGASTRODUODENOSCOPY TRANSORAL DIAGNOSTIC; COMMENT: Normal with nl duodenal, antral and GE junction bxys BREAST BIOPSY 06/25/2018 Left PROCEDURE: BX BREAST; PERC NEEDLE CORE W/IMAG GUID; COMMENT: BENIGN FIBROADENOMATOUS CHANGES. OTHER SURGICAL HISTORY 02/2021 PROCEDURE: MAMMOGRAM, SCREENING, BOTH BREASTS Medical History Medical History Date Comments Depression with anxiety 10/06/2015 DX:Depre ssion with anxiety; COMMENT: [facility] - therapist Khushi triyohana to see her once in a week Hypercholesteremia 10/06/2015 DX:Hyperchole steremia Asthma 10/06/2015 DX:Asthma; COMME NT: Dr. Gaytan Ulcerative colitis ([facility] V24, [facility] V28) DX:Ulcerative colitis (HCC); COMMENT: Dr. Baez Ankylosing spondylitis ([facility] V24, [facility] V28) DX:Ankylosing spondylitis (H CC); COMMENT: Dr. Mckay Hepatic steatosis DX:Hepatic sher atosis Pelvic pain 11/24/2015 DX:Pelvic pain Iron deficiency anemia 11/25/2015 DX:Iron d eficiency anemia Vitamin D deficiency 11/25/2015 DX:Vitamin D deficiency Disc disease, degenerative, cervical 12/13/2015 DX:Disc disease, degenerative, cervical Lung nodules 05/2016 DX:Lung nodules; COMMENT: on imaging at [facility], followed by Dr. Gaytan. Fracture of rib of left side 08/2017 DX: Fracture of rib of left side; COMMENT: Left 7th and 8th fracture Fracture of lumbar spine ([facility]/HCC V24, [facility] V28) 08/2017 DX:Fracture of lumbar spine (HCC); COMMENT: Macario fracture Sternal fracture 08/2017 DX:Sternal frac ture Crohn's disease (CMS/HCC V24 , [facility] V28) DX:Crohn's disease (HCC) Family History [...] is recommended in 1 year. MAMMO LOCATION: [facility], [address] [place] [address], [address], . -------- FINAL REPORT -------- Dictated By: Roselyn Martinez Dictated Date: 09/03/2024 08:19 ET Assigned Physician: Roselyn Martinez Reviewed and Electronically Signed By: Roselyn Martinez Signed Date: 09/03/2024 08:24 ET Workstation ID: [id number] Transcribed By: Self Edit Transcribed Date: 09/03/2024 [...] is recommended in 1 year. MAMMO LOCATION: [facility], [address] [place] [address], [address], . -------- FINAL REPORT -------- Dictated By: Roselyn Martinez Dictated Date: 09/03/2024 08:19 ET Assigned Physician: Roselyn Martinez Reviewed and Electronically Signed By: Roselyn Martinez Signed Date: 09/03/2024 08:24 ET Workstation ID: [id number] Transcribed By: Self Edit Transcribed Date: 09/03/2024 08:19 ET Result [facility] Lisa Santos MD IMG BI PROCEDURES Final Result * Annual BMP Blood Test (12/06/2020) Pathologist On license of [facility] Annual BMP Blood Test abstracted Result [facility] Provider HEALTH MAINTENANCE Final Result * Hepatitis C Screening (12/06/2020) [facility] Hepatitis C Screening abstracted Result [facility] Provider HEALTH MAINTENANCE Final Result * (ABNORMAL) Lipid panel (08/21/2019) [facility] LDL/HDL Ratio 4 0 - 4 Triglycerides 186(A) 0 - 150 mg/dL Cholesterol 198 0 - 200 mg/dL HDL 56 >=40 mg/dL LDL Cholesterol 105(A) 0 - 100 mg/dL Blood Venous blood specimen / Unknown Result [facility] Provider LAB BLOOD ORDERABLES Micaela l Result * HIV Screening (01/10/2018) [facility] HIV Screening abstracted Result [facility] HEALTH MAINTENANCE Final Result * Cervical Cancer Screening: HPV (12/12/2015) Cervical Cancer Screening: HPV abstracted, negative Historical Provider HEALTH MAINTENANCE Final Result * Colonoscopy (09/12/2015) Colonoscopy no interpretation , abstracted Anatomical Region Laterality Modality Other us Historical Provider HEALTH MAINTENANCE Final Result from Last 3 Months or Most Recently Relevant to Health Maintenance Insurance [facility] [employer]IC[facility] Member Subscriber Plan / Payer (Ef fective 2016-Present) Name:Josselin Harrington Relation to Subscriber:Self Name:Josselin Harrington Payer ID:[id number] Group ID:[id number] Type:Not on file Address: [place] [address] [address] [address] Care Teams Sales Representative Metals Relationship Specialty Start Date End Date Lisa Santos MD [address] [place] [address] PCP - General Internal Medicine 02/15/22
--- OUTSIDE RECORDS SUMMARY | 2025-06-02 18:05 | XMS_ITS | Patient Health Record ---
Author Organization [facility] Address [address] [place] [address] Care Team Providers Care Rfid Engineer Name Role Phone BRITNEY STOREY Primary Care Provider Unavailab Debo Seymour Unavailable [phone] Allergies Allergen (clinical drug ingredient) Drug/Non Drug [...] a day; Duration: 30 day(s) Active Nystatin 475157 UNIT/GM 1 application Ex ternally Twice a [...] Status W/U Status Risk Notes Problem Menopause (274264679) Menopausal and female climacteric states (N95.1) Active confirmed Problem Postmenopausal atrophic vaginitis (46499908) Postmenopausal atrophic vaginitis (N95.2) Active confirmed Problem Polycystic ovary syndrome (disorder) (662726279) Polycystic ovarian syndrome (E28.2) Active confirmed Problem Morbid obesity (disorder) (094370091) Morbid (severe) obesity due to excess calories (E66.01) Active confirmed Problem Hyperlipidemia (64541260) Hyperlipidemia, unspecified (E78.5) Active confirmed Problem Recurrent depression (716209436) Other recurrent depressive disorders (F33.8) Active confirmed Problem Anxiety disorder (330978342) Anxiety disorder, unspecified (F41.9) Active confirmed Problem Vitreous opacities (044939879) Other vitreous opacities, unspecified eye (H43.399) Active confirmed Problem Asthma (625472980) Other asthma (J45.998) Active confirmed Problem Crohn's disease (93618749) Crohn's disease, unspecified, with unspecified complications (K50.919) Active confirmed Problem Fatty liver (526418566) Fatty (change of) liver, not elsewhere classified (K76.0) Active confirmed Problem Ankylosing spondylitis (3877800) Ankylosing spondylitis of unspecified sites in spine (M45.9) Active confirmed Problem Gastroesophageal reflux disease with esophagitis (disorder) (637664815) Gastro-esophageal reflux disease with esophagitis, without bleeding (K21.00) Active confirmed Vital Signs Temperature 97.4 degrees Fahrenheit 06/03/2024 Blood pressure diastolic 84 mm Hg 06/03/2024 Height 59 in 06/03/2024 Blood pressure systolic 124 mm Hg 06/03/2024 Weight 193 lbs 06/03/2024 BMI 38.98 kg/m2 06/03/2024 Encounters Encounter Location Date Provider Diagnosis [place] [address] [employer] [address] [address] 06/19/2024 Debo Patel [address] [address] 06/03/2024 Debo Patel Encounter for gynecological examination (general) (routine) without abnormal findings Z01.419 ; Encounter for screening mammogram for malignant neoplasm of breast Z12.31 and Acute candidiasis of vulva and vagina B37.31 [address] [address] 07/30/2024 Debo aPtel Assessments Encounter Date Diagnosis (ICD Code) Assessment [...] head, 06/10/2025 02:40:00 PM, [address], [address], [place], [address], Insurance Providers Payer Name Payer Address Payer Phone Subscriber Number Group Number Insured Name Patient Relationship to Insured Coverage Start Date Coverage End Date [place] [id number] JAIME SÁNCHEZ Self - patient is the [...]
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
--- OUTSIDE RECORDS SUMMARY | 2025-06-02 18:05 | XMS_ITS | Encounter Summary ---
Author Organization [facility] Address [address] [place] [address] Phone Care Team Providers Care Home Theater Experience Expert Name Role Phone Angel Mariano MD Primary Care Provider [phone] Encounter Details Date Type Department Care Team (Latest Contact Info) Description 09/11/2017 Transcribe Orders [facility] Specimen Processing [address] [place] [address] Angel Mariano MD [address] [facility], [address] [place] [address] [email or web address] Moderate persistent asthma, unspecified [...] EST) WBC 3.31(L) 3.40 - 11.20 K/uL [facility] RBC 4.59 3.80 - 4.80 M/uL [facility] HGB 11.5(L) 12.0 - 15.0 g/dL [facility] HCT 35.5(L) 36.0 - 46.0 % [facility] PLT 358 130 - 400 K/uL [facility] MCV 77.3(L) 79.0 - 98.0 [facility] MCH 25.1(L) 27.0 - 34.8 pg [facility] MCHC 32.4 31.5 - 36.0 g/dL [facility] RDW 15.6(H) 10.8 - 14.6 % [facility] MPV 9.9 9.4 - 12.4 [facility] NRBC 0.00 /100 WBCs [facility] ABSOLUTE NRBC 0.00 K/uL [facility] Blood 09/11/2017 8:25 AM EST 09/11/2017 12:17 PM EST us Angel Mariano MD LAB BLOOD ORDERABLES Final Resul t Performing Organization Address City/[facility]/ZIP Co de Phone Number [address] [address] * (ABNORMAL) Basic metabolic panel (09/11/2017 8:25 AM EST) SODIUM 142 133 - 146 mmol/L [facility] CHLORIDE 101 96 - 108 mmol/L [facility] POTASSIUM 4.1 3.3 - 5.1 mmol/L [facility] CO2 26 21 - 35 mmol/L [facility] BUN 9 6 - 19 mg/dL [facility] CREATININE <0.50(L) 0.5 - 1.5 mg/dL [facility] GLUCOSE 96 70 - 99 mg/dL [facility] CALCIUM 9.2 8.4 - 10.3 mg/dL [facility] EGFR Test Not Performed. >60 mL/min/1.7 3m2 [facility] Comment:Abnormal if <60. If patient is -[place], multiply the result by 1.21. ANION GAP 19 10 - 20 mmol/L [facility] Blood 09/11/2017 8:25 AM EST 09/11/2017 12:17 PM EST us Angel Mariano MD LAB BLOOD ORDERABLES Final Resul t Performing Organization Address City/[facility]/ZIP Co de Phone Number [address] [address] documented in this encounter Visit Diagnoses Diagnosis Moderate persistent asthma, unspecified whether complicated- Primary Essential hypertension, benign Hyperlipidemia, unspecified hyperlipidemia type documented in this encounter Care Teams Home Theater Experience Expert Relationship Specialty Start Date End Date Angel Mariano MD [email or web address] PCP - General Family Medicine 09/11/17 documented as of this encounter Additional Source Comments The information contained in this document represents components of the legal health record. It is not the complete legal health record.[facility]
--- OUTSIDE RECORDS SUMMARY | 2025-06-02 18:05 | XMS_ITS | Clinical Summary ---
Author Organization [facility] Address [address] [facility] [address] [place] [address] Phone Care Team Providers Care Toy Department Manager Name Role Phone Angel Mariano MD Primary Care Provider [phone] Social History Tobacco Use Types Packs/Day Years [...] topic Medical Devices Not on file Insurance [facility] MEDICARE PART A & [place] & [place] & [place] PART [place] & [place] & [place] & B Care Teams Toy Department Manager Relationship Specialty Start Date End Date Angel Mariano MD [email or web address] PCP - General Family Medicine 09/11/17 Additional Source Comments The information contained in this document represents components of the legal health record. It is not the complete legal health record.[facility]
--- OUTSIDE RECORDS SUMMARY | 2025-06-02 18:05 | XMS_ITS | Encounter Summary ---
Author Organization [facility] Address [address] [place] [address] Phone Care Team Providers Care Quickbooks Bookkeeper Name Role Phone Unknown, Unknown Primary Care Provider Angel Espinoza MD Primary Care Provider [phone] Encounter Details Date Type Department Care Team (Late st Contact Info) Description 09/02/2017 Transcribe Orders [facility] Specimen Processing [address] [place] [address] Angel Mariano MD [address] [facility] [address] [place] [address] [email or web address] Examination (Primary Dx) Social History Tobacco Use [...] EST) SODIUM 141 133 - 146 mmol/L [facility] POTASSIUM 4.7 3.3 - 5.1 mmol/L [facility] CHLORIDE 100 96 - 108 mmol/L [facility] CO2 29 21 - 35 mmol/L [facility] BUN 12 6 - 19 mg/dL [facility] CREATININE 0.50 0.5 - 1.5 mg/dL [facility] GLUCOSE 85 70 - 99 mg/dL [facility] ALBUMIN 4.2 3.9 - 4.8 g/dL [facility] TOTAL PROTEIN 7.1 6.5 - 8.0 g/dL [facility] CALCIUM 9.5 8.4 - 10.3 mg/dL [facility] ALKALINE PHOSPHATASE 118(H) 39 - 117 U/L [facility] TOTAL BILIRUBIN 0.4 0 - 1.2 mg/dL [facility] AST 19 0 - 37 U/L [facility] ALT 23 0 - 40 U/L [facility] GLOBULIN 2.9 1 - 4.8 g/dL [facility] EGFR >60 60 - 1000 mL/min/1.7 3m2 [facility] Comment:Abnormal if <60. If patient is -Surinamese, multiply the result by 1.21. ANION GAP 17 10 - 20 mmol/L [facility] Blood 09/02/2017 8:20 AM EST 09/02/2017 11:12 AM EST us Angel Mariano MD LAB BLOOD ORDERABLES Final Resul t Performing Organization Address City/State/[facility] Co de Phone Number [facility] [address] [place] [address] * (ABNORMAL) CBC (09/02/2017 8:20 AM EST) WBC 7.10 3.40 - 11.20 K/uL [facility] RBC 4.35 3.80 - 4.80 M/uL [facility] HGB 11.0(L) 12.0 - 15.0 g/dL [facility] HCT 35.2(L) 36.0 - 46.0 % [facility] PLT 398 130 - 400 K/uL [facility] MCV 80.9 79.0 - 98.0 fL [facility] MCH 25.3(L) 27.0 - 34.8 pg [facility] MCHC 31.3(L) 31.5 - 36.0 g/dL [facility] RDW 16.2(H) 10.8 - 14.6 % [facility] MPV 9.8 9.4 - 12.4 fl [facility] NRBC 0.00 /100 WBCs [facility] ABSOLUTE NRBC 0.00 K/uL [facility] Blood 09/02/2017 8:20 AM EST 09/02/2017 11:12 AM EST us Angel Mariano MD LAB BLOOD ORDERABLES Final Resul t [address] [address] documented in this encounter Visit Diagnoses Diagnosis Examination- Primary Unspecified examination documented in this encounter Care Teams Quickbooks Bookkeeper Relationship Specialty Start Date End Date Unknown, Unknown, MD PCP - General 09/02/17 09/10/17 Angel Mariano MD [email or web address] PCP - General Family Medicine 09/11/17 documented as of this encounter Additional Source Comments The information contained in this document represents components of the legal health record. It is not the complete legal health record.[facility]
--- OUTSIDE RECORDS SUMMARY | 2025-06-02 18:05 | XMS_ITS | Encounter Summary ---
Author Organization [employer] [facility] Address [address] [place] [address] Phone Care Team Providers Care Director Of Academic Support Name Role Phone Unknown, Unknown Primary Care Provider Angel Espinoza MD Primary Care Provider [phone] Encounter Details Date Type Department Care Team (Late st Contact Info) Description 09/07/2017 Transcribe Orders [facility] Specimen Processing [address] [place] [address] Angel Mariano MD [address] [place] [address] [address], [address] [place] [address] [email or web address] Fever, unspecified fever cause (Primary Dx); Malaise [...] PM EST) Influenza A Ag Negative Negative [facility] Influenza B Ag Negative Negative [facility] Other (Nasal) 09/07/2017 12: 00 PM EST 09/07/2017 3:52 PM EST us Angel Mariano MD MICROBIOLOGY - GENERAL ORDERABLE S Final Result [facility] [address] [place] [address] documented in this encounter Visit Diagnoses Diagnosis Fever, unspecified fever cause- Primary Malaise Other malaise and fatigue documented in this encounter Care Teams Director Of Academic Support Relationship Specialty Start Date End Date Unknown, Unknown, MD PCP - General 09/02/17 09/10/17 Angel Mariano MD [email or web address] PCP - General Family Medicine 09/11/17 documented as of this encounter Additional Source Comments The information contained in this document represents components of the legal health record. It is not the complete legal health record.[facility]
--- OUTSIDE RECORDS SUMMARY | 2025-06-02 18:05 | XMS_ITS | Data Portability ---
Author Organization [place] [facility] Address [address] [place] [address] Care Team Providers Care Autobody Technician Name Role Phone [facility] Primary Care Provider [facility] FAX OTHER [phone] Assessment Encounter Date Assessment Date Assessment LastModified by Organization Details LastModified Time 09/03/2021 09/03/2021 Proper Personal Protective Equipment (PPE), including gloves, eye protection and masks were donned and doffed appropriately and all equipment cleaned using approved technique with germicidal disposable wipes prior to and after care of this patient according to [facility]'s infection prevention protocols. Overview/History : 51 yo [...] encouraged to seek pulmonary consult through PCP [email or web address] Not available 09/03/2021 12:56:33 Plan of Treatment Reminders Order Date Submit Date Provider Last Modified By Organization Details Last Modified Time Details Appointments None recorded. Lab unlisted lab - covid-19 (novel coronavirus ) PCR 2021 [facility] (Centralized Electronic Ordering - All Locations), Patient Can Go To The Location Of Their Choice, [address] 13:16:40 Referral None recorded. Procedures None recorded. Surgeries None recorded. Imaging None recorded. Medication Orders benzonatate 200 mg capsule 2021 [facility] [place], [place], [address], [place], [address], 13:01:10 Patient TargetsNo targets recorded. Patient Instructions Encounter Date Encounter Id Patient Instructions Last Modified By Organization Details Last Modified Time 09/03/2021 [id number] Inhaler Instructions Before use, you need to [...] after cleaning actually helps it work better. [email or web address] Not available 09/03/2021 11:39:16 Reason for Referral [...] ng. Resul t repor sandee to the [facility]. This test has been autho rized by the FDA under an Emerg ency Use Autho rizat ion (EUA) for use by autho rized labor atori es. Test perfo rmed by [facility] at the [facility] and Abhijeet gutierrez, [address] [place] [address] . CLIA ID: [id number] , CAP: [id number] 96. Medic al Direc tor: Ruma Ramirez, [...] limit ed to the [facility] Se[facility] n[facility] Plat[facility] orm at the [facility] which is certi fied under the [...] Go To The Location Of Their Choice, [id number] 09/05/2021 13:16:40 Result Notes None recorded. Procedures Surgical History Date Name Laterality Status Provider Name and Address Organization Details Recorded Time 09/03/19 22 ECG Interpretation - completed MARGARET Bazzi [address], [place], [address], [place] [facility] 09/03/2021 12:41:20 Imaging Results [...] 0.3 mg (0.3 mL) Into the muscle [id number] As Needed for anaphylaxis ; for 2 [...] Not Available Not Available No t Available [place] Saline 0.65 % nasal drops active Not [...] ICD10 Code Diagnosis IMO Codes Diagnosis Note [id number] MARGARET Bazzi [facility] [address] [place] [address] 09/03/2021 11:37:26 09/04/2021 08:55:24 Viral upper respiratory tract infection 847683137 J06.9 Exposure t o communicable disease 398816633 Z20.822 Health Concerns Section Related Observation LastModified by Organization Detai ls LastModified Time None Recorded Concern Status LastModified by Organization Details LastModified Time None Recorded Advance Directives Directive None Recorded Payers Insurance Date Sequence Insurance Name Policy Number Policy Mckeon Covered Member ID Mckeon Member ID Guarantor Name 09/04/2021 1 [facility] - DOS PRIOR TO 2022 - DUAL ELIGIBLE (MEDICARE REPLACEMENT/ADV ANTAGE - HMO) Josselin Harrington [id number] Josselin Harrington 09/03/2021 1 *SELF PAY* Josselin Harrington [id number] Josselin Harrington 09/03/2021 1 [place] [employer] Josselin Harrington [id number] Josselin Harrington 09/03/2021 1 [facility] - DOS PRIOR TO 2022 - DUAL ELIGIBLE (MEDICARE REPLACEMENT/ADV ANTAGE - HMO) Josselin Harrington [id number] Josselin Harrington Notes Date Note Type Note [...] a heart attack-no smoking, no hx of AR/CVA, reports cholesterol is fine , and denies any family hx of CAD. MARGARET Bazzi [address], [place], [address], [place] [facility] 09/03/2021 12:56:49 OBGyn Episode No OBEpisode recorded.
--- OUTSIDE RECORDS SUMMARY | 2025-06-02 18:05 | XMS_ITS | Patient Health Record ---
Author Organization [facility] Address [address] [place] [address] Care Team Providers Care Service Dispatcher Name Role Phone Bindu Sanders MD Primary [...] Risk Notes Problem Liver function tests abnormal ([id number]) Nonspecific abnormal results of liver function study [...] OF [address] [place]LEY SANCHEZ [id number] Josselin Harrington Self - patient is the insured MEDICAID OF [facility] [address] [place] [address] [phone] [id number] Josselin Harrington Self - patient is the insured Medical (General) History Medical History History ICD Code back and hip pain following a fall hypertension depression anxiety esophageal reflux elevated lipids low vitamin D level
== END 2025-06-02 14:45 | disposition home or self-care (01) ==
LOC: HO.HCS 14:04
PROVIDERS: PCP Family Medicine; Visit Provider Internal Medicine
DX: R00.2 Palpitations (principal)
CPT/HCPCS: 93010; 99213

== ENCOUNTER → 2025-06-02 14:03 | Outpatient (BNVA) | payer OTHER, SELFPAY | PROVIDERS: PCP Family Medicine; Visit Provider Internal Medicine | DX: R00.2 Palpitations (principal); I45.10 Unspecified right bundle-branch block | CPT/HCPCS: 93005; 99212 ==

== ENCOUNTER → 2025-06-28 13:58 | Outpatient (REF) | payer OTHER, SELFPAY ==
--- NOTE | 2025-06-28 14:01 | CA_ITS ---
Transthoracic Echocardiogram Patient (Last, First, Middle): Josselin Harrington E Gender: F Date of : 1970 Age: 55 Procedure Date: 06/28/2025 Procedure Type: Transthoracic Echocardiogram Location: OP Height: 149.86 cm Weight: 86.18 kg BSA: 1.80 m2 Heart Rate: bpm BP: 128 / 80 mmHg Wig Stylist: Referring MD: Arron Sousa WATER TANKER DRIVER Symptoms: R00.2 - Palpitations Study Quality: Good ECG Rhythm: Sinus Conclusions: - The left ventricular systolic function is normal. The calculated ejection fraction is 59% by biplane method. - There is mildly increased left ventricular wall thickness. - No obvious valvular pathology seen on this study. Findings Left Ventricle Normal left ventricular cavity size. There is mildly increased left ventricular wall thickness. The left ventricular systolic function is normal. The calculated ejection fraction is 59% by biplane method. There is no evidence of regional wall motion abnormalities. Diastolic function is normal for age. Right Ventricle Normal right ventricular cavity size and systolic function. Atria Both atria are normal in size. Aortic Valve There is a normal trileaflet aortic valve. There is no aortic valve stenosis. There is no aortic valve regurgitation. Mitral Valve Likely normal mitral valve structure and function. There is no mitral valve regurgitation. There is no mitral valve stenosis. Pulmonic Valve The pulmonic valve is likely normal. Tricuspid Valve There is trace tricuspid valve regurgitation. There is no evidence of pulmonary hypertension. Great Vessels The asc aorta is normal in size. Venous The inferior vena cava is normal in size and collapses less than 50% with inspiration. Pericardium/Pleural There is no evidence of pericardial effusion. Prior Study Comparison No significant change compared to prior study dated: 05/22/2022. Recommendations, Care & Conclusions No obvious valvular pathology seen on this study. Measurements 2D Linear Measurements IVSd: 1.23 0.6-0.9/0.6-1.0 cm LVIDd: 3.05 3.9-5.3/4.2-5.9 cm LVIDd Index: 1.69 2.4-3.2/2.2-3.1 cm/m2 LVIDs: 2.12 2.0-3.6 cm LVPWd: 1.23 0.7-1.1 cm Ao Root: 3.20 2.1-3.5 cm LA Diam: 3.60 2.7-3.8/3.0-4.0 cm LAIDs Index: 2.00 1.5-2.3 cm/m2 LV Mass: 144.47 67-162/88-224 g LV Mass Index: 80.26 43-95/49-115 g/m2 LVOT Diam: 2.20 3.0+(-)1.3 cm 2D Systolic Function EF 4C: 54.60 >55% EF 2C: 60.30 >55% EF BiP: 58.50 >55% Mitral Valve MV Pk E: 0.69 MV PK A: 1.10 MV Decel Time: 145.00 E/A: 0.60 E'Lateral: 5.22 E'Medial: 4.03 E/E' Med: 17.20 E/E' Lat: 13.30 PHT: 43.00 MVA PHT: 5.12 Decel [place]: 4.76 Aortic Valve AoV Pk Jun: 1.26 AoV Mn Jun: 0.82 AoV VTI: 0.24 AoV Pk Grad: 6.00 Aov Mn Grad: 3.00 SAM Cont.VTI: 3.16 LVOT LVOT Pk Jun: 1.07 LVOT Mn Jun: 0.64 LVOT VTI: 0.20 LVOT Pk Grad: 5.00 LVOT Mn Grad: 2.00 LVOT Diam: 2.20 LVOT Area: 3.80 Diastolic Function MV Pk E: 0.69 MV Pk A: 1.10 E/A: 0.60 E'Medial: 4.03 E/E' Med: 17.20 E' Laterial: 5.22 E/E' Lat: 13.30 Right Ventricle TAPSE (mm): 18.00 Tricuspid Valve TR Pk Jun: 1.23 TR Pk Grad: 6.00 RA Press: 3.00 RVSP: 9.00 Great Vessels Aorta Ao Root-2D: 3.20 2.0-3.7 cm Ao Asc: 3.10 2.1-3.4 cm Pulmonary Valve PV Pk Jun: 1.10 Peak PV Grad: 5.00 Updated in Other Vendor System with Status of Final Johnny Sanches MD electronically signed on 06/28/2025 4:19:29 PM with status of Final
--- OUTSIDE RECORDS SUMMARY | 2025-06-28 18:54 | XMS_ITS | Encounter Summary ---
Author Organization [facility] Address [address] [place] [address] Care Team Providers Care Stitcher Around Name Role Phone Judy Juarez MD Primary Care Provider Judy Swanson MD Primary Care Provider Lisa Mireles MD Primary Care Provider [phone] Judy Juarez MD Primary Care Provider Lisa Mireles MD Primary Care Provider [phone] Encounter Details Date Type Department Care Team Description 08/26/2017 [facility] Medical Records [address] [place] [address] Social History Tobacco Use Types Packs/Day Years [...] on filedocumented in this encounter Care Teams Stitcher Around Relationship Specialty Start Date End Date Judy Juarez MD PCP - General Internal Medicine 01/14/17 10/23/20 Judy Juarez MD PCP - General Internal Medicine 10/24/20 11/28/20 Lisa Santos MD [address] [place] [address] PCP - General Internal Medicine 11/29/20 02/12/22 Judy Juarez MD [address] [place] [address] PCP - General Internal Medicine 02/13/22 02/14/22 Lisa Santos MD [address] [place] [address] PCP - General Internal Medicine 02/15/22 documented as of this encounter
--- OUTSIDE RECORDS SUMMARY | 2025-06-28 18:54 | XMS_ITS | Encounter Summary ---
Author Organization [facility] Address [address] [place] [address] Care Team Providers Care Spring Layer Name Role Phone Judy Juarez MD Primary Care Provider Norman Jain Primary Care Provider Judy Harris MD Primary Care Provider Judy Swanson MD Primary Care Provider Lisa Mireles MD Primary Care Provider [phone] Judy Juarez MD Primary Care Provider Lisa Mireles MD Primary Care Provider [phone] Encounter Details Date Type Department Care Team Description 03/26/2016 Release of Information Medical Records [address] [place] [address] Abstract, Provider Social History Tobacco Use Types [...] on filedocumented in this encounter Care Teams Spring Layer Relationship Specialty Start Date End Date Judy Juarez MD PCP - General Internal Medicine 10/12/15 12/02/16 Radhika, Norman PCP - General Internal Medicine 12/03/16 01/13/17 Judy Juarez MD PCP - General Internal Medicine 01/14/17 10/23/20 Judy Juarez MD PCP - General Internal Medicine 10/24/20 11/28/20 Lisa Santos MD [address] [place] [address] PCP - General Internal Medicine 11/29/20 02/12/22 Judy Juarez MD [address] [place] [address] PCP - General Internal Medicine 02/13/22 02/14/22 Lisa Santos MD [address] [place] [address] PCP - General Internal Medicine 02/15/22 documented as of this encounter
--- OUTSIDE RECORDS SUMMARY | 2025-06-28 18:54 | XMS_ITS | Encounter Summary ---
Author Organization [facility] Address [address] [place] [address] Phone Care Team Providers Care Mixing Tumbler Operator Name Role Phone Unknown, Unknown Primary Care Provider Angel Espinoza MD Primary Care Provider [phone] Encounter Details Date Type Department Care Team (Late st Contact Info) Description 09/07/2017 Transcribe Orders [facility] Specimen Processing [address] [place] [address] Angel Mariano MD [address] [place] [address] [address] [place] [address] [email or web address] Fever, unspecified fever cause (Primary Dx); [...] PM EST) Influenza A Ag Negative Negative [facility] Influenza B Ag Negative Negative [facility] Other (Nasal) 09/07/2017 12: 00 PM EST 09/07/2017 3:52 PM EST us Angel Mariano MD MICROBIOLOGY - GENERAL ORDERABLE S Final Result [facility] [address] [place] [address] documented in this encounter Visit Diagnoses Diagnosis Fever, unspecified fever cause- Primary Malaise Other malaise and fatigue documented in this encounter Care Teams Mixing Tumbler Operator Relationship Specialty Start Date End Date Unknown, Unknown, MD PCP - General 09/02/17 09/10/17 Angel Mariano MD [email or web address] PCP - General Family Medicine 09/11/17 documented as of this encounter Additional Source Comments The information contained in this document represents components of the legal health record. It is not the complete legal health record.[facility]
--- OUTSIDE RECORDS SUMMARY | 2025-06-28 18:54 | XMS_ITS | Encounter Summary ---
Author Organization [facility] Address [address] [place] [address] Phone Care Team Providers Care Compressor Repairer Name Role Phone Angel Mariano MD Primary Care Provider [phone] Encounter Details Date Type Department Care Team (Latest Contact Info) Description 09/11/2017 Transcribe Orders [facility] Specimen Processing [address] [place] [address] Angel Mariano MD [address] [facility], [address], [address] [place] [address] [email or web address] Moderate persistent [...] EST) WBC 3.31(L) 3.40 - 11.20 K/uL [facility] RBC 4.59 3.80 - 4.80 M/uL [facility] HGB 11.5(L) 12.0 - 15.0 g/dL [facility] HCT 35.5(L) 36.0 - 46.0 % [facility] PLT 358 130 - 400 K/uL [facility] MCV 77.3(L) 79.0 - 98.0 [facility] MCH 25.1(L) 27.0 - 34.8 pg [facility] MCHC 32.4 31.5 - 36.0 g/dL [facility] RDW 15.6(H) 10.8 - 14.6 % [facility] MPV 9.9 9.4 - 12.4 [facility] NRBC 0.00 /100 WBCs [facility] ABSOLUTE NRBC 0.00 K/uL [facility] Blood 09/11/2017 8:25 AM EST 09/11/2017 12:17 PM EST us Angel Mariano MD LAB BLOOD BKR ORDERABLES Final R esult Performing Organization Address City/[facility]/ZIP Co de Phone Number [address] [address] * (ABNORMAL) Basic metabolic panel (09/11/2017 8:25 AM EST) SODIUM 142 133 - 146 mmol/L [facility] CHLORIDE 101 96 - 108 mmol/L [facility] POTASSIUM 4.1 3.3 - 5.1 mmol/L [facility] CO2 26 21 - 35 mmol/L [facility] BUN 9 6 - 19 mg/dL [facility] CREATININE <0.50(L) 0.5 - 1.5 mg/dL [facility] GLUCOSE 96 70 - 99 mg/dL [facility] CALCIUM 9.2 8.4 - 10.3 mg/dL [facility] EGFR Test Not Performed. >60 mL/min/1.7 3m2 [facility] Comment:Abnormal if <60. If patient is -Tunisian, multiply the result by 1.21. ANION GAP 19 10 - 20 mmol/L [facility] Blood 09/11/2017 8:25 AM EST 09/11/2017 12:17 PM EST us Angel Mariano MD LAB BLOOD BKR ORDERABLES Final R esult Performing Organization Address City/[facility]/ZIP Co de Phone Number [address] [address] documented in this encounter Visit Diagnoses Diagnosis Moderate persistent asthma, unspecified whether complicated- Primary Essential hypertension, benign Hyperlipidemia, unspecified hyperlipidemia type documented in this encounter Care Teams Compressor Repairer Relationship Specialty Start Date End Date Angel Mariano MD [email or web address] PCP - General Family Medicine 09/11/17 documented as of this encounter Additional Source Comments The information contained in this document represents components of the legal health record. It is not the complete legal health record.[facility]
--- OUTSIDE RECORDS SUMMARY | 2025-06-28 18:54 | XMS_ITS | Encounter Summary ---
Author Organization [facility] Address [address] [place] [address] Care Team Providers Care Revenue Manager Name Role Phone Judy Juarez MD Primary Care Provider Norman Jain Primary Care Provider Judy Harris MD Primary Care Provider Judy Swanson MD Primary Care Provider Lisa Mireles MD Primary Care Provider [phone] Judy Juarez MD Primary Care Provider Lisa Mireles MD Primary Care Provider [phone] Encounter Details Date Type Department Care Team Description 01/06/2016 Eligibility Supervisor Report Medical Records [address] [place] [address] Re[facility], [facility] [address] [place] [address] Social History Tobacco Use Types Packs/Day Years [...] on filedocumented in this encounter Care Teams Revenue Manager Relationship Specialty Start Date End Date Judy Juarez MD PCP - General Internal Medicine 10/12/15 12/02/16 Radhika, Pcp PCP - General Internal Medicine 12/03/16 01/13/17 Judy Juarez MD PCP - General Internal Medicine 01/14/17 10/23/20 Judy Juarez MD PCP - General Internal Medicine 10/24/20 11/28/20 Lisa Santos MD [address] [place] [address] PCP - General Internal Medicine 11/29/20 02/12/22 Judy Juarez MD [address] [place] [address] PCP - General Internal Medicine 02/13/22 02/14/22 Lisa Santos MD [address] [place] [address] PCP - General Internal Medicine 02/15/22 documented as of this encounter
--- OUTSIDE RECORDS SUMMARY | 2025-06-28 18:54 | XMS_ITS | Encounter Summary ---
Author Organization [facility] Address [address] [place] [address] Care Team Providers Care Cv Tech Name Role Phone Judy Juarez MD Primary Care Provider Judy Swanson MD Primary Care Provider Lisa Mireles MD Primary Care Provider [phone] Judy Juarez MD Primary Care Provider Lisa Mireles MD Primary Care Provider Encounter Details Date Type Department Care Team Description 09/03/2018 Golf Club Maker Report Medical Records [address] [place] [address] Gerber Vazquez MD Social History Tobacco Use [...] on filedocumented in this encounter Care Teams Cv Tech Relationship Specialty Start Date End Date Judy Juarez MD PCP - General Internal Medicine 01/14/17 10/23/20 Judy Juarez MD PCP - General Internal Medicine 10/24/20 11/28/20 Lisa Santos MD [address] [place] [address] PCP - General Internal Medicine 11/29/20 02/12/22 Judy Juarez MD [address] [place] [address] PCP - General Internal Medicine 02/13/22 02/14/22 Lisa Santos MD [address] [place] [address] PCP - General Internal Medicine 02/15/22 documented as of this encounter
--- OUTSIDE RECORDS SUMMARY | 2025-06-28 18:54 | XMS_ITS | Encounter Summary ---
Author Organization [facility] Address [address] [place] [address] Care Team Providers Care Dialysis Registered Nurse Name Role Phone Bindu Sanders MD Primary Care Provider Judy Harris MD Primary Care Provider Norman Jain Primary Care Provider Judy Harris MD Primary Care Provider Judy Swanson MD Primary Care Provider Lisa Mireles MD Primary Care Provider [phone] Judy Juarez MD Primary Care Provider Lisa Mireles MD Primary Care Provider [phone] Encounter Details Date Type Department Care Team Description 09/27/2015 Outbound Sales Agent Report Medical Records [address] [place] [address] Abstract, Provider Social History Tobacco Use Types Packs/Day Years Used Date Smoking Tobacco: Never Assessed Sex Assigned at Date Recorded Not on file Job Start Date Occupation Industry Not on file Not on file Not on file documented as of this encounter Plan of Treatment Not on file documented as of this encounter Visit Diagnoses Not on filedocumented in this encounter Care Teams Dialysis Registered Nurse Relationship Specialty Start Date End Date Bindu Sanders MD PCP - General Internal Medicine 09/29/15 10/11/15 Judy Juarez MD PCP - General Internal Medicine 10/12/15 12/02/16 Radhika, Pcp PCP - General Internal Medicine 12/03/16 01/13/17 Judy Juarez MD PCP - General Internal Medicine 01/14/17 10/23/20 Judy Juarez MD PCP - General Internal Medicine 10/24/20 11/28/20 Lisa Santos MD [address] [place] [address] PCP - General Internal Medicine 11/29/20 02/12/22 Judy Juarez MD [address] [place] [address] 48204 PCP - General Internal Medicine 02/13/22 02/14/22 Lisa Santos MD [address] [place] [address] 35599 PCP - General Internal Medicine 02/15/22 documented as of this encounter
--- OUTSIDE RECORDS SUMMARY | 2025-06-28 18:54 | XMS_ITS | Encounter Summary ---
Author Organization [facility] Address [address] [place] [address] Care Team Providers Care Muck Farmer Name Role Phone Judy Juarez MD Primary Care Provider Judy Swanson MD Primary Care Provider Lisa Mireles MD Primary Care Provider [phone] Judy Juarez MD Primary Care Provider Lisa Mireles MD Primary Care Provider [phone] Reason for Visit * Reason Onset Date Comments Testing 06/18/2018 [id number] Encounter Details Date Type Department Care Team Description 06/18/2018 [facility] - [address] [address] Dinah Ortiz PA-C Testing ([id number]) Social History Tobacco Use Types Packs/Day Years [...] 8:12 AM EST CCA No auth Req [id number] @ [facility] Order forwarded to [facility] for booking documented in this encounter Plan of Treatment Not on file documented as of this encounter Visit Diagnoses Not on filedocumented in this encounter Care Teams Muck Farmer Relationship Specialty Start Date End Date Judy Juarez MD PCP - General Internal Medicine 01/14/17 10/23/20 Judy Juarez MD PCP - General Internal Medicine 10/24/20 11/28/20 Lisa Santos MD [address] [place] [address]99 PCP - General Internal Medicine 11/29/20 02/12/22 Judy Juarez MD [address] [place] [address] PCP - General Internal Medicine 02/13/22 02/14/22 Lisa Santos MD [address] [place] [address] 51065 PCP - General Internal Medicine 02/15/22 documented as of this encounter
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
--- OUTSIDE RECORDS SUMMARY | 2025-06-28 18:54 | XMS_ITS | Encounter Summary ---
Author Organization [facility] Address [address] [place] [address] Care Team Providers Care Wire Photo Operator Name Role Phone Judy Juarez MD Primary Care Provider Judy Swanson MD Primary Care Provider Lisa Mireles MD Primary Care Provider [phone] Judy Juarez MD Primary Care Provider Lisa Mireles MD Primary Care Provider [phone] Encounter Details Date Type Department Care Team Description 10/01/2017 Home Health Certification Medical Records [address] [place] [address] Services, [employer] [address] [place] [address] Social History Tobacco Use Types Packs/Day Years [...] on filedocumented in this encounter Care Teams Wire Photo Operator Relationship Specialty Start Date End Date Judy Juarez MD PCP - General Internal Medicine 01/14/17 10/23/20 Judy Juarez MD PCP - General Internal Medicine 10/24/20 11/28/20 Lisa Santos MD [address] [place] [address] PCP - General Internal Medicine 11/29/20 02/12/22 Judy Juarez MD [address] [place] [address] PCP - General Internal Medicine 02/13/22 02/14/22 Lisa Santos MD [address] [place] [address] PCP - General Internal Medicine 02/15/22 documented as of this encounter
--- OUTSIDE RECORDS SUMMARY | 2025-06-28 18:54 | XMS_ITS | Encounter Summary ---
Author Organization [facility] Address [address] [facility] [address] [place] [address] Phone Care Team Providers Care Box Estimator Name Role Phone Unknown, Unknown Primary Care Provider Angel Espinoza MD Primary Care Provider [phone] Encounter Details Date Type Department Care Team (Late st Contact Info) Description 09/02/2017 Transcribe Orders [facility] Specimen Processing [address] [place] [address] Angel Mariano MD [address] [facility] [address] [place] [address] [email or web address] Examination (Primary Dx) Social History Tobacco Use [...] EST) SODIUM 141 133 - 146 mmol/L [facility] POTASSIUM 4.7 3.3 - 5.1 mmol/L [facility] CHLORIDE 100 96 - 108 mmol/L [facility] CO2 29 21 - 35 mmol/L [facility] BUN 12 6 - 19 mg/dL [facility] CREATININE 0.50 0.5 - 1.5 mg/dL [facility] GLUCOSE 85 70 - 99 mg/dL [facility] ALBUMIN 4.2 3.9 - 4.8 g/dL [facility] TOTAL PROTEIN 7.1 6.5 - 8.0 g/dL [facility] CALCIUM 9.5 8.4 - 10.3 mg/dL [facility] ALKALINE PHOSPHATASE 118(H) 39 - 117 U/L [facility] TOTAL BILIRUBIN 0.4 0 - 1.2 mg/dL [facility] AST 19 0 - 37 U/L [facility] ALT 23 0 - 40 U/L [facility] GLOBULIN 2.9 1 - 4.8 g/dL [facility] EGFR >60 60 - 1000 mL/min/1.7 3m2 [facility] Comment:Abnormal if <60. If patient is -Prydeinig, multiply the result by 1.21. ANION GAP 17 10 - 20 mmol/L [facility] Blood 09/02/2017 8:20 AM EST 09/02/2017 11:12 AM EST us Angel Mariano MD LAB BLOOD BKR ORDERABLES Final R esult Performing Organization Address City/State/[facility] Co de Phone Number [facility] [address] [place] [address] * (ABNORMAL) CBC (09/02/2017 8:20 AM EST) WBC 7.10 3.40 - 11.20 K/uL [facility] RBC 4.35 3.80 - 4.80 M/uL [facility] HGB 11.0(L) 12.0 - 15.0 g/dL [facility] HCT 35.2(L) 36.0 - 46.0 % [facility] PLT 398 130 - 400 K/uL [facility] MCV 80.9 79.0 - 98.0 fL [facility] MCH 25.3(L) 27.0 - 34.8 pg [facility] MCHC 31.3(L) 31.5 - 36.0 g/dL [facility] RDW 16.2(H) 10.8 - 14.6 % [facility] MPV 9.8 9.4 - 12.4 fl [facility] NRBC 0.00 /100 WBCs [facility] ABSOLUTE NRBC 0.00 K/uL [facility] Blood 09/02/2017 8:20 AM EST 09/02/2017 11:12 AM EST us Angel Mariano MD LAB BLOOD BKR ORDERABLES Final R esult [facility] [address] [place] [address] documented in this encounter Visit Diagnoses Diagnosis Examination- Primary Unspecified examination documented in this encounter Care Teams Box Estimator Relationship Specialty Start Date End Date Unknown, Unknown, MD PCP - General 09/02/17 09/10/17 Angel Mariano MD [email or web address] PCP - General Family Medicine 09/11/17 documented as of this encounter Additional Source Comments The information contained in this document represents components of the legal health record. It is not the complete legal health record.[facility]
--- OUTSIDE RECORDS SUMMARY | 2025-06-28 18:54 | XMS_ITS | Encounter Summary ---
Author Organization [facility] Address [address] [place] [address] Care Team Providers Care [facility] Name Role Phone Judy Juarez MD Primary Care Provider Judy Swanson MD Primary Care Provider Lisa Mireles MD Primary Care Provider [phone] Judy Juarez MD Primary Care Provider Lisa Mireles MD Primary Care Provider [phone] Reason for Visit * Reason Onset Date Comments APPOINTMENT 07/03/2018 external echo Encounter Details Date Type Department Care Team Description 07/03/[address] [facility] - [address] [address] Judy Juarez MD APPOINTMENT (external echo) Social [...] 07/07/2018 8:39 AM EST Form faxed to [facility] for authorization [id number] * Telephone Encounter - Zander Burns - 07/03/2018 10:54 AM EST Dear provider, due to limited access at this time, the echocardiogram order you placed for Antonio Harrington has been sent externally to [facility] to be performed. The order has been faxed to our Prior Authorization pool. You are not required to take any further action. documented in this encounter Plan of Treatment Not on file documented as of this encounter Visit Diagnoses Not on filedocumented in this encounter Care Teams [facility] Relationship Specialty Start Date End Date Judy Juarez MD PCP - General Internal Medicine 01/14/17 10/23/20 Judy Juarez MD PCP - General Internal Medicine 10/24/20 11/28/20 Lisa Santos MD [address] [place] [address] PCP - General Internal Medicine 11/29/20 02/12/22 Judy Juarez MD [address] [place], [place] [address] PCP - General Internal Medicine 02/13/22 02/14/22 Lisa Santos MD [address] [place] [address] PCP - General Internal Medicine 02/15/22 documented as of this encounter
--- OUTSIDE RECORDS SUMMARY | 2025-06-28 18:54 | XMS_ITS | Encounter Summary ---
Author Organization [facility] Address [address] [place] [address] Care Team Providers Care Television Production Clerk Name Role Phone Bindu Sanders MD Primary Care Provider Judy Harris MD Primary Care Provider Norman Jain Primary Care Provider Judy Harris MD Primary Care Provider Judy Swanson MD Primary Care Provider Lisa Mireles MD Primary Care Provider [phone] Judy Juarez MD Primary Care Provider Lisa Mireles MD Primary Care Provider [phone] Encounter Details Date Type Department Care Team Description 09/23/2015 Stem Roller Report Medical Records [address] [place] [address] Bindu Sanders MD Social History Tobacco Use [...] filedocumented in this encounter Care Teams Television Production Clerk Relationship Specialty Start Date End Date Bindu Sanders MD PCP - General Internal Medicine 09/29/15 10/11/15 Judy Juarez MD PCP - General Internal Medicine 10/12/15 12/02/16 Radhika, Pcp PCP - General Internal Medicine 12/03/16 01/13/17 Judy Juarez MD PCP - General Internal Medicine 01/14/17 10/23/20 Judy Juarez MD PCP - General Internal Medicine 10/24/20 11/28/20 Lisa Santos MD [address] [place] [address] PCP - General Internal Medicine 11/29/20 02/12/22 Judy Juarez MD [address] [place] [address] PCP - General Internal Medicine 02/13/22 02/14/22 Lisa Santos MD [address] [place] [address] PCP - General Internal Medicine 02/15/22 documented as of this encounter
--- OUTSIDE RECORDS SUMMARY | 2025-06-28 18:54 | XMS_ITS | Encounter Summary ---
Author Organization [facility] Address [address] [place] [address] Care Team Providers Care Hog Stomach Preparer Name Role Phone Judy Juarez MD Primary Care Provider Judy Swanson MD Primary Care Provider Lisa Mireles MD Primary Care Provider [phone] Judy Juarez MD Primary Care Provider Lisa Mireles MD Primary Care Provider [phone] Encounter Details Date Type Department Care Team Description 01/13/2020 Telephone Gastroenterology - [address] [place] [address] Kain Carolina PA-C Social History Tobacco Use Types Packs/Day [...] on filedocumented in this encounter Care Teams Hog Stomach Preparer Relationship Specialty Start Date End Date Judy Juarez MD PCP - General Internal Medicine 01/14/17 10/23/20 Judy Juarez MD PCP - General Internal Medicine 10/24/20 11/28/20 Lisa Santos MD [address] [place] [address] PCP - General Internal Medicine 11/29/20 02/12/22 Judy Juarez MD [address] [place] [address] PCP - General Internal Medicine 02/13/22 02/14/22 Lisa Santos MD [address] [place] [address] PCP - General Internal Medicine 02/15/22 documented as of this encounter
--- OUTSIDE RECORDS SUMMARY | 2025-06-28 18:55 | XMS_ITS | Encounter Summary ---
Author Organization [facility] Address [address] [place] [address] Care Team Providers Care Shank Carrier Name Role Phone Judy Juarez MD Primary Care Provider Judy Swanson MD Primary Care Provider Lisa Mireles MD Primary Care Provider [phone] Judy Juarez MD Primary Care Provider Lisa Mireles MD Primary Care Provider [phone] Encounter Details Date Type Department Care Team Description 11/10/2017 Visual Stylist Report Medical Records [address] [place] [address] Abstract, Provider Social History Tobacco Use Types [...] on filedocumented in this encounter Care Teams Shank Carrier Relationship Specialty Start Date End Date Judy Juarez MD PCP - General Internal Medicine 01/14/17 10/23/20 Judy Juarez MD PCP - General Internal Medicine 10/24/20 11/28/20 Lisa Santos MD [address] [place] [address] PCP - General Internal Medicine 11/29/20 02/12/22 Judy Juarez MD [address] [place] [address] PCP - General Internal Medicine 02/13/22 02/14/22 Lisa Santos MD [address] [place] [address] PCP - General Internal Medicine 02/15/22 documented as of this encounter
--- OUTSIDE RECORDS SUMMARY | 2025-06-28 18:55 | XMS_ITS | Encounter Summary ---
Author Organization [facility] Address [address] [place] [address] Care Team Providers Care Lotteries Agent Name Role Phone Judy Juarez MD Primary Care Provider Judy Swanson MD Primary Care Provider Lisa Mireles MD Primary Care Provider [phone] Judy Juarez MD Primary Care Provider Lisa Mireles MD Primary Care Provider [phone] Reason for Visit * Reason Onset Date Comments Advice 02/10/2019 CT today Encounter Details Date Type Department Care Team Description 02/10/2019 Telephone Gastroenterology - [address] [place] [address] Ruma Tinajero MD Advice (CT [...] to the Radiology dept at [facility] * Telephone Encounter - Kimberly Patterson - 02/10/2019 9:24 AM EDT Pt is calling asking ot talk with a nurse about her CT scan she is suppose to have done today. documented in this encounter Plan of Treatment Not on file documented as of this encounter Visit Diagnoses Not on filedocumented in this encounter Care Teams Lotteries Agent Relationship Specialty Start Date End Date Judy Juarez MD PCP - General Internal Medicine 01/14/17 10/23/20 Judy Juarez MD PCP - General Internal Medicine 10/24/20 11/28/20 Lisa Santos MD [address] [place] [address] PCP - General Internal Medicine 11/29/20 02/12/22 Judy Juarez MD [address] [place] [address] 81135 PCP - General Internal Medicine 02/13/22 02/14/22 Lisa Santos MD [address] [place] [address] 37504 PCP - General Internal Medicine 02/15/22 documented as of this encounter
--- OUTSIDE RECORDS SUMMARY | 2025-06-28 18:55 | XMS_ITS | Encounter Summary ---
Author Organization [facility] Address [address] [place] [address] Care Team Providers Care Edi Specialist Name Role Phone Lisa Santos MD Primary Care Provider [phone] Judy Juarez MD Primary Care Provider [facility] Lisa Santos MD Primary Care Provider [phone] Encounter Details Date Type Department Care Team Description 03/17/2021 Business Doc Medical Records [address] [place] [address] Abstract, Provider Social History Tobacco Use Types [...] on filedocumented in this encounter Care Teams Edi Specialist Relationship Specialty Start Date End Date Lisa Santos MD [address] [place] [address] [phone] PCP - General Internal Medicine 11/29/20 02/12/22 Judy Juarez MD [address] [place] [address]16 PCP - General Internal Medicine 02/13/22 02/14/22 Lisa Santos MD [address] [place] [address] PCP - General Internal Medicine 02/15/22 documented as of this encounter
--- OUTSIDE RECORDS SUMMARY | 2025-06-28 18:55 | XMS_ITS | Encounter Summary ---
Author Organization [facility] Address [address] [place] [address] Care Team Providers Care Equipment Installer Name Role Phone Judy Juarez MD Primary Care Provider Judy Swanson MD Primary Care Provider Lisa Mireles MD Primary Care Provider [phone] Judy Juarez MD Primary Care Provider Lisa Mireles MD Primary Care Provider Encounter Details Date Type Department Care Team Description 08/19/2019 Collar Turner Operator Report Medical Records [address] [place] [address] Mary Colvin, PEDIATRIC CARDIOLOGIST [address] [address] Social History Tobacco Use Types [...] on filedocumented in this encounter Care Teams Equipment Installer Relationship Specialty Start Date End Date Judy Juarez MD PCP - General Internal Medicine 01/14/17 10/23/20 Judy Juarez MD PCP - General Internal Medicine 10/24/20 11/28/20 Lisa Santos MD [address] [place] [address] 27627 PCP - General Internal Medicine 11/29/20 02/12/22 Judy Juarez MD [address] [place] [address] 95773 PCP - General Internal Medicine 02/13/22 02/14/22 Lisa Santos MD [address] [place] [address] PCP - General Internal Medicine 02/15/22 documented as of this encounter
--- OUTSIDE RECORDS SUMMARY | 2025-06-28 18:55 | XMS_ITS | Encounter Summary ---
Author Organization [facility] Address [address] [place] [address] Care Team Providers Care Beet Topper Name Role Phone Lisa Santos MD Primary Care Provider [phone] Judy Juarez MD Primary Care Provider [facility] Lisa Santos MD Primary Care Provider [phone] Encounter Details Date Type Department Care Team Description 12/01/2020 Orders Only Adult Medicine [address] [phone] Jennifer Barroso PA-C [address] [place] [address] [phone] Social History Tobacco Use Types Packs/Day Years [...] on filedocumented in this encounter Care Teams Beet Topper Relationship Specialty Start Date End Date Lisa Santos MD [address] [place] [address] [phone] PCP - General Internal Medicine 11/29/20 02/12/22 Judy Juarez MD [address] [place] [address]97 PCP - General Internal Medicine 02/13/22 02/14/22 Lisa Santos MD [address] [place] [address] [place] [address] PCP - General Internal Medicine 02/15/22 documented as of this encounter
--- OUTSIDE RECORDS SUMMARY | 2025-06-28 18:55 | XMS_ITS | Encounter Summary ---
Author Organization [facility] Address [address] [place] [address] Care Team Providers Care Air Conditioning Supervisor Name Role Phone Community, Pcp Primary Care Provider Judy Harris MD Primary Care Provider Judy Swanson MD Primary Care Provider Lisa Mireles MD Primary Care Provider [phone] Judy Juarez MD Primary Care Provider Lisa Mireles MD Primary Care Provider [phone] Encounter Details Date Type Department Care Team Description 12/14/2016 Orders Only Medicine/Pediatrics - [address] [address] Dinah Ortiz PA-C Social History Tobacco Use [...] on filedocumented in this encounter Care Teams Air Conditioning Supervisor Relationship Specialty Start Date End Date Community, Pcp PCP - General Internal Medicine 12/03/16 01/13/17 Judy Juarez MD PCP - General Internal Medicine 01/14/17 10/23/20 Judy Juarez MD PCP - General Internal Medicine 10/24/20 11/28/20 Lisa Santos MD [address] [place] [address]691 PCP - General Internal Medicine 11/29/20 02/12/22 Judy Juarez MD [address] [place] [address] PCP - General Internal Medicine 02/13/22 02/14/22 Lisa Santos MD [address] [place] [address]39[address] PCP - General Internal Medicine 02/15/22 documented as of this encounter
--- OUTSIDE RECORDS SUMMARY | 2025-06-28 18:55 | XMS_ITS | Encounter Summary ---
Author Organization [facility] Address [address] [place] [address] Care Team Providers Care Senior Adults Director Name Role Phone Judy Juarez MD Primary Care Provider Judy Swanson MD Primary Care Provider Lisa Mireles MD Primary Care Provider [phone] Judy Juarez MD Primary Care Provider Lisa Mireles MD Primary Care Provider [phone] Encounter Details Date Type Department Care Team Description 12/26/2018 Golf Club Assembler Report Medical Records [address] [place] [address] Nedra Barkley Np Social History Tobacco Use [...] on filedocumented in this encounter Care Teams Senior Adults Director Relationship Specialty Start Date End Date Judy Juarez MD PCP - General Internal Medicine 01/14/17 10/23/20 Judy Juarez MD PCP - General Internal Medicine 10/24/20 11/28/20 Lisa Santos MD [address] [place] [address] PCP - General Internal Medicine 11/29/20 02/12/22 Judy Juarez MD [address] [place] [address] PCP - General Internal Medicine 02/13/22 02/14/22 Lisa Santos MD [address] [place] [address] PCP - General Internal Medicine 02/15/22 documented as of this encounter
--- OUTSIDE RECORDS SUMMARY | 2025-06-28 18:55 | XMS_ITS | Clinical Summary ---
Author Organization [address] Address [address] [place] [phone] Phone Care Team Providers Care Dictating Transcribing Machine Servicer Name Role Phone Lisa Santos MD Primary Care Provider [phone] Allergies Active Allergy Reactions Criticality Noted Date [...] time each day. 2 Active sodium chloride ([place] Saline) 0.65 % nasal drops 3 Drops by Each Nare route 3 times daily. 1 Active tiZANidine (ZANAFLEX) 2 mg capsule Take 1 capsule by mouth at bedtime as needed for Muscle spasms. 1 Active coenzyme Q-10 10 mg capsule Take by mouth. 7 Active Active Problems Problem Noted Date Diagnosed Date Ankylosing spondylitis ([facility] V24, [facility] V28 ) 08/07/2024 Overview (08/07/2024): Onset ~ : SI joint fusion, fused LS and T spine Humira started December 2015- held in the summer due to dental problems Episode of Iritis - 05/23 Hepatic steatosis 08/07/2024 Morbid obesity with BMI of 4 0.0-44.9, adult ([facility] V24, [facility] V28) 08/07/2024 Chronic rhinitis 09/23/2019 Vitamin B12 deficiency 05/20/2019 Snoring 01/05/2019 Overview (08/07/2024): 12/2018 Home Sleep Study did not reveal sleep apnea or nocturnal hypoxia. 04/2019 Diagnostic polysomnogram did not reveal ELIJAH or nocturnal hypoxia. Crohn's disease of large int estine without complication ([facility] V24, [facility] V28) 08/11/2018 RLS (restless legs syndrome) 05/28/2018 Thyroid nodule 12/10/2017 Fracture of lumbar spine ([facility] V24, [facility] V 28) 08/05/2017 Overview (08/07/2024): Macario fracture Sternal fracture 08/05/2017 Fracture of rib of left side 08/05/2017 Overview (08/07/2024): Left 7th and 8th fracture Lung nodules 05/05/2016 Overview (08/07/2024): on imaging at [place], followed by Dr. Gaytan. CAT scan 04/23/17: [...] ascending colitis on bxy ESOPHAGOGASTRODUODENOSCOPY 09/12/2015 PROCEDURE: IN ESOPHAGOGASTRODUODENOSCOPY TRANSORAL DIAGNOSTIC; COMMENT: Normal with nl duodenal, antral and GE junction bxys BREAST BIOPSY 06/25/2018 Left PROCEDURE: BX BREAST; PERC NEEDLE CORE W/IMAG GUID; COMMENT: BENIGN FIBROADENOMATOUS CHANGES. OTHER SURGICAL HISTORY 02/2021 PROCEDURE: MAMMOGRAM, SCREENING, BOTH BREASTS Medical History Medical History Date Comments Depression with anxiety 10/06/2015 DX:Depre ssion with anxiety; COMMENT: [facility] - therapist Khushi triyohana to see her once in a week Hypercholesteremia 10/06/2015 DX:Hyperchole steremia Asthma 10/06/2015 DX:Asthma; COMME NT: Dr. Gaytan Ulcerative colitis ([facility] V24, [facility] V28) DX:Ulcerative colitis (HCC); COMMENT: Dr. Baez Ankylosing spondylitis ([facility] V24, [facility] V28) DX:Ankylosing spondylitis (H CC); COMMENT: Dr. Mckay Hepatic steatosis DX:Hepatic sher atosis Pelvic pain 11/24/2015 DX:Pelvic pain Iron deficiency anemia 11/25/2015 DX:Iron d eficiency anemia Vitamin D deficiency 11/25/2015 DX:Vitamin D deficiency Disc disease, degenerative, cervical 12/13/2015 DX:Disc disease, degenerative, cervical Lung nodules 05/2016 DX:Lung nodules; COMMENT: on imaging at [place], followed by Dr. Gaytan. Fracture of rib of left side 08/2017 DX: Fracture of rib of left side; COMMENT: Left 7th and 8th fracture Fracture of lumbar spine (CM S/HCC V24, [facility] V28) 08/2017 DX:Fracture of lumbar spine (HCC); COMMENT: Macario fracture Sternal fracture 08/2017 DX:Sternal frac ture Crohn's disease (CMS/HCC V24 , [facility] V28) DX:Crohn's disease (HCC) Family History [...] is recommended in 1 year. MAMMO LOCATION: [facility], [address] [place] [address], [id number], . -------- FINAL REPORT -------- Dictated By: Roselyn Martinez Dictated Date: 09/03/2024 08:19 ET Assigned Physician: Roselyn Martinez Reviewed and Electronically Signed By: Roselyn Martinez Signed Date: 09/03/2024 08:24 ET Workstation ID: [id number] Transcribed By: Self Edit Transcribed Date: 09/03/2024 [...] is recommended in 1 year. MAMMO LOCATION: [facility], [address] [place] [address], [id number], . -------- FINAL REPORT -------- Dictated By: Roselyn Martinez Dictated Date: 09/03/2024 08:19 ET Assigned Physician: Roselyn Martinez Reviewed and Electronically Signed By: Roselyn Martinez Signed Date: 09/03/2024 08:24 ET Workstation ID: [id number] Transcribed By: Self Edit Transcribed Date: 09/03/2024 08:19 ET Result [facility] Lisa Santos MD IMG BI PROCEDURES Final Result * Annual BMP Blood Test (12/06/2020) Pathologist [facility] Annual BMP Blood Test abstracted Result [facility] Provider HEALTH MAINTENANCE Final Result * Hepatitis C Screening (12/06/2020) [facility] Hepatitis C Screening abstracted Result [facility] Provider HEALTH MAINTENANCE Final Result * (ABNORMAL) Lipid panel (08/21/2019) [facility] LDL/HDL Ratio 4 0 - 4 Triglycerides 186(A) 0 - 150 mg/dL Cholesterol 198 0 - 200 mg/dL HDL 56 >=40 mg/dL LDL Cholesterol 105(A) 0 - 100 mg/dL Blood Venous blood specimen / Unknown Result [facility] Provider LAB BLOOD ORDERABLES Micaela l Result * HIV Screening (01/10/2018) [facility] HIV Screening abstracted Result [facility] HEALTH MAINTENANCE Final Result * Cervical Cancer Screening: HPV (12/12/2015) Cervical Cancer Screening: HPV abstracted, negative Historical Provider HEALTH MAINTENANCE Final Result * Colonoscopy (09/12/2015) Colonoscopy no interpretation , abstracted Anatomical Region Laterality Modality Other us Historical Provider HEALTH MAINTENANCE Final Result from Last 3 Months or Most Recently Relevant to Health Maintenance Insurance [facility] Member Subscriber Plan / Payer (Ef fective 2016-Present) Name:Josselin Harrington Relation to Subscriber:Self Name:Josselin Harrington Payer ID:[id number] Group ID:[id number] Type:Not on file Address: [place] [address] [address] [id number] Care Teams Dictating Transcribing Machine Servicer Relationship Specialty Start Date End Date Lisa Santos MD [address] [place] [address] PCP - General Internal Medicine 02/15/22
--- OUTSIDE RECORDS SUMMARY | 2025-06-28 18:55 | XMS_ITS | Encounter Summary ---
Author Organization [facility] Address [address] [place] [address] Care Team Providers Care Agricultural Produce Washer Name Role Phone Judy Juarez MD Primary Care Provider Judy Swanson MD Primary Care Provider Lisa Mireles MD Primary Care Provider [phone] Judy Juarez MD Primary Care Provider Lisa Mireles MD Primary Care Provider [phone] Reason for Visit * Reason Onset Date Comments refill request 01/28/2017 Encounter Details Date Type Department Care Team Description 01/28/2017 Refill Medicine/Pediatrics - [address] [address] Judy Juarez MD refill request Social History [...] THE PATIENT'S LAST APPOINTMENT IN ADULT MEDICINE? [id number] WHEN WAS THE LAST TIME THE PATIENT SAW THEIR PCP? [phone] Does patient have an upcoming appointment? Yes [id number] (THE MEDICATION REQUESTED IS ON THE MED LIST ABOVE) All of the medications requested were on the CURRENT MEDS list Did you check the Pharmacy information above?: YES Patient wants: 30 -day supply Is this a mail order prescription request ? NO Patients current insurance carrier is: Payor: [employer] [facility] Xetawave MCR / Plan: [facility] / Product Type: HMO [id number] documented in this encounter Plan of Treatment Not on file documented as of this encounter Visit Diagnoses Not on filedocumented in this encounter Care Teams Agricultural Produce Washer Relationship Specialty Start Date End Date Judy Juarez MD PCP - General Internal Medicine 01/14/17 10/23/20 Judy Juarez MD PCP - General Internal Medicine 10/24/20 11/28/20 Lisa Santos MD [address] [place] [address] PCP - General Internal Medicine 11/29/20 02/12/22 Judy Juarez MD [address] [place] [address] PCP - General Internal Medicine 02/13/22 02/14/22 Lisa Santos MD [address] [place] [address] PCP - General Internal Medicine 02/15/22 documented as of this encounter
--- OUTSIDE RECORDS SUMMARY | 2025-06-28 18:55 | XMS_ITS | Encounter Summary ---
Author Organization [facility] Address [address] [place] [address] Care Team Providers Care Porcelain Technician Name Role Phone Judy Juarez MD Primary Care Provider Judy Swanson MD Primary Care Provider Lisa Mireles MD Primary Care Provider [phone] Judy Juarez MD Primary Care Provider Lisa Mireles MD Primary Care Provider [phone] Encounter Details Date Type Department Care Team Description 01/27/2018 Lathing Supervisor Report Medical Records [address] [place] [address] Ravi Lozano MD Social History Tobacco Use [...] on filedocumented in this encounter Care Teams Porcelain Technician Relationship Specialty Start Date End Date Judy Juarez MD PCP - General Internal Medicine 01/14/17 10/23/20 Judy Juarez MD PCP - General Internal Medicine 10/24/20 11/28/20 Lisa Santos MD [address] [place] [address] PCP - General Internal Medicine 11/29/20 02/12/22 Judy Juarez MD [address] [place] [address]6468 PCP - General Internal Medicine 02/13/22 02/14/22 Lisa Santos MD [address] [place] [address] PCP - General Internal Medicine 02/15/22 documented as of this encounter
--- OUTSIDE RECORDS SUMMARY | 2025-06-28 18:55 | XMS_ITS | Encounter Summary ---
Author Organization [facility] Address [address] [place] [address] Care Team Providers Care Front Office Representative Name Role Phone Judy Juarez MD Primary Care Provider Judy Swanson MD Primary Care Provider Lisa Mireles MD Primary Care Provider [phone] Judy Juarez MD Primary Care Provider Lisa Mireles MD Primary Care Provider [phone] Encounter Details Date Type Department Care Team Description 05/07/2018 Department Operations Manager Report Medical Records [address] [place] [address] Ashutosh Gaytan MD Social History Tobacco Use [...] filedocumented in this encounter Care Teams Front Office Representative Relationship Specialty Start Date End Date Judy Juarez MD PCP - General Internal Medicine 01/14/17 10/23/20 Judy Juarez MD PCP - General Internal Medicine 10/24/20 11/28/20 Lisa Santos MD [address] [place] [phone] PCP - General Internal Medicine 11/29/20 02/12/22 Judy Juarez MD [address] [place] [address] PCP - General Internal Medicine 02/13/22 02/14/22 Lisa Santos MD [address] [place] [address] PCP - General Internal Medicine 02/15/22 documented as of this encounter
--- OUTSIDE RECORDS SUMMARY | 2025-06-28 18:55 | XMS_ITS | Clinical Summary ---
Author Organization [facility] Address [address] [place] [address] Care Team Providers Care Court Collections Officer Name Role Phone Lisa Santos MD Primary Care Provider [phone] Allergies Active Allergy Reactions Severity Noted Date Comments Ibuprofen 04/03/2018 Irritatates colon Penicillins 10/06/2015 anaphylaxis Simvastatin Low 10/24/2015 Fatigue, stomach upset Medications Medication Sig Dispensed Refills Start Date End Date Status fluticasone-salmete rol (ADVAIR) 500-50 MCG/DOSE diskus inhaler Inhale 1 Puff into the lungs every 12 hours. 0 Active montelukast (SINGULAIR) 10 MG tablet Take 10 mg by mouth at bedtime. 0 Active Ascorbic Acid (VITAMIN C) 250 MG tablet Take 250 mg by mouth daily. 0 Active Coenzyme Q10 (CO Q 10) 10 MG Cap Take by mouth. 30 Cap 0 08/17/2016 Active lamotrigine (LAMICTAL) 100 MG tablet Take 100 mg by mouth daily. 0 Active lorazepam (ATIVAN) 0.5 MG tablet Take 1 tablet by mouth daily as needed. 0 09/19/2017 Active ALBUTEROL SULFATE 108 (90 BASE) MCG/ACT Aero Soln INHALE 2 PUFFS INTO THE LUNGS EVERY 4 HOURS NEEDED FOR COUGH OR WHEEZING. 8.5 Inhaler 0 06/30/2018 Active docusate sodium (COLACE) 100 MG capsule Take 1 capsule by mouth 3 times daily as needed for Constipation. 0 12/06/2020 Active mupirocin (BACTROBAN) 2 % ointment Apply topically 2 times daily. 0 Active azelastine (ASTELIN) 0.1 % nasal sprayIndications:Pe rennial allergic rhinitis 1-2 Sprays by Each Nare route 2 times daily. Use in each nostril as directed 1 Bottle 11 01/09/2021 Active BUDESONIDE, NASAL, (Rhinocort Aqua) 32 MCG/ACT Suspension 2 Sprays by Nasal route daily. May use 2 to 4 sprays daily. 1 Bottle 5 01/09/2021 Active tizanidine (ZANAFLEX) 2 MG capsule Take 1 capsule by mouth at bedtime as needed for Muscle spasms. 20 capsule 2 01/18/2021 Active nystatin (MYCOSTATIN) 104567 UNIT/ML suspension Suspension (swish and swallow): Use 5mL 4 times/day; swish in the mouth and retain for as long as possible (several minutes) before swallowing 300 mL 0 02/03/2021 Active vitamin B-12 (CYANOCOBALAMIN) 1000 MCG tablet Take 1 tablet by mouth daily for 360 days. 90 tablet 1 03/16/2021 Active Saline (Fedscreek Saline Nasal Drops) 0.65 % (Soln) Solution 3 Drops by Each Nare route 3 times daily. 50 mL 2 03/16/2021 Active Cholecalciferol (Vitamin D3) 50 MCG (2000 UT) Tab Take 1 tablet by mouth daily. 90 tablet 1 03/16/2021 Active omeprazole (PRILOSEC) 40 MG capsule Take 1 capsule by mouth daily. 90 capsule 1 03/16/2021 Active Adalimumab (Humira Pen) 40 MG/0.4ML Pen-injector KitIndications:Anky losing spondylitis of multiple sites in spine (HCC) Inject 40 mg as directed every 14 days. 2 Each 3 07/20/2021 Active pravastatin (PRAVACHOL) 80 MG tabletIndications:P ure hypercholesterolemi a, unspecified TAKE 1 TABLET BY MOUTH EVERY DAY 90 Tablet 0 11/06/2021 Active loratadine (CLARITIN) 10 MG tablet TAKE 1 TABLET BY MOUTH EVERY DAY 90 Tablet 0 11/06/2021 Active mesalamine (LIALDA) 1.2 g EC tablet TAKE 1 TABLET BY MOUTH 2 TIMES DAILY. 180 Tablet 1 01/11/2022 Active Active Problems Problem Noted Date Chronic rhinitis 09/23/2019 Vitamin B12 deficiency 05/20/2019 Snoring 01/05/2019 Overview: 12/2018 Home Sleep Study did not reveal sleep apnea or nocturnal hypoxia. 04/2019 Diagnostic polysomnogram did not reveal ELIJAH or nocturnal hypoxia. Crohn's disease of large intestine witho ut complication 08/11/2018 RLS (restless legs syndrome) 05/28/2018 Morbid obesity with BMI of 40.0-44.9, ad ult 05/08/2018 Thyroid nodule 12/10/2017 Fracture of rib of left side 08/05/2017 Overview: Left 7th and 8th fracture Fracture of lumbar spine 08/05/2017 Overview: Macario fracture Sternal fracture 08/05/2017 Lung nodules 05/05/2016 Overview: on imaging at [place], followed by Dr. Gaytan. CAT scan 04/23/17: New ground glass opacities. Bilateral lung nodules Disc disease, degenerative, cervical 05/2016 Iron deficiency anemia 11/25/2015 Vitamin D deficiency 11/25/2015 Depression with anxiety 10/06/2015 Overview: With anxiety Hypercholesteremia 10/06/2015 Moderate persistent asthma 10/06/2015 Overview: Dr. Gaytan Hepatic steatosis Ankylosing spondylitis Overview: Onset ~ : SI joint fusion, fused LS and T spine Humira started December 2015- held in the summer due to dental problems Episode of Iritis - 05/23 Resolved Problems Problem Noted Date Resolved Date Allergic conjunctivitis of both eyes 09/23/2019 03/09/2021 Pain in both lower extremities 05/28/2019 0 03/09/2021 Chronic maxillary sinusitis 02/25/201903/05 Hypertriglyceridemia 01/26/2016 12/06/2020 Pelvic pain 11/24/2015 03/16/2021 Crohn's disease 12/06/2020 Immunizations Name Administration Dates Next Due COVID-19 (Pfizer) 11/16/2020,10/26/2020 Influenza (> 6 Months) 04/06/2020,04/16/2017, Influenza Vaccine-preservati ve Free-quadrivalent 4 Years 07/14/2019,04/16/2018 PPD-RBMG 10/12/2015 Pneumoccoccal(Adult) Polysaccharide PPSV23 05/21,02/01/2015 Pneumococcal Conjugate PCV-13 03/16/2021 Tdap 06/21/2016 Family History Medical History Relation Name Comments Diabetes Brother 1 Arthritis Brother 2 Suicide Father Arthritis Maternal Grandmother Dementia Mother bipolar, arthri tis, DM CA Breast Negative Hx CA Colon Negative Hx CA Ovarian Negative Hx Uterine Cancer Negative Hx Relation Name Status Comments Brother 1 [...] file Not on file Not on file Last Filed Vital Signs Vital Sign Reading Time Taken Comments Blood Pressure 106/70 03/16/2021 11:00 AM EDT Pulse 74 03/16/2021 11:00 AM EDT Temperature 36.7 C (98.1 F) 03/16/2021 11:00 AM EDT Respiratory Rate 18 03/16/2021 11:00 AM EDT Oxygen Saturation 97% 01/09/2021 10:57 AM EDT Inhaled Oxygen Concentration - - Weight 87.5 kg (193 lb) 03/16/2021 11:00 AM EDT Height 150.4 cm (4' 11.2 ) 03/16/2021 11:00 AM E DT Body Mass Index 38.72 03/16/2021 11:00 AM EDT Plan of Treatment Health Maintenance Due Date Last Done Comments CERVICAL CANCER SCREENING 12/04/2018 12/05/2015 SHINGLES VACCINE (1 of 2) 02/13/2020 DEPRESSION SCREEN 02/26/2020 02/25/2019, , 11/24/2015 BASELINE HEALTH EXAM 40-64 03/16/2023 03/16/2021, BMI CHECK/ADVISE 08/05/2024 03/16/2021, , 01/09/2021, Additional history exists CHOLESTEROL SCREENING 08/21/2024 08/21/2019 , 11/17/2018, 05/28/2018, Additional history exists MAMMOGRAM 08/22/2024 08/22/2023, 08/05, 08/02/2021, Additional history exists Covid-19 Vaccine ( - 2022-2 4 season) 2025 11/16/2020, 10/26/2020 INFLUENZA (#1) 2025 04/06/2020, 07/05, 04/16/2018, Additional history exists COLON CANCER SCREENING 09/12/2025 09/12/2015 DTAP/TDAP/TD (2 - Td or Tdap) 06/21/2026 06/21/2016 PNEUMOCOCCAL VACCINE FOR HIG H RISK PATIENTS (#2) 2035 03/16/2021, 05/21/2016, 02/01/[address] Collections Officer Relationship Specialty Start Date End Date Lisa Santos MD [address] [place] [address] [id number] PCP - General Internal Medicine 02/15/22
--- OUTSIDE RECORDS SUMMARY | 2025-06-28 18:55 | XMS_ITS | Encounter Summary ---
Author Organization [facility] Address [address] [place] [address] Care Team Providers Care Die Cast Engineer Name Role Phone Judy Juarez MD Primary Care Provider Judy Swanson MD Primary Care Provider Lisa Mireles MD Primary Care Provider [phone] Judy Juarez MD Primary Care Provider Lisa Mireles MD Primary Care Provider [phone] Encounter Details Date Type Department Care Team Description 04/02/2019 Manufacturer'S Service Representative Report Medical Records [address] [place] [address] [facility] Social History Tobacco Use Types Packs/Day [...] on filedocumented in this encounter Care Teams Die Cast Engineer Relationship Specialty Start Date End Date Judy Juarez MD PCP - General Internal Medicine 01/14/17 10/23/20 Judy Juarez MD PCP - General Internal Medicine 10/24/20 11/28/20 Lisa Santos MD [address] [place] [address] [phone] PCP - General Internal Medicine 11/29/20 02/12/22 Judy Juarez MD [address] [place] [address] PCP - General Internal Medicine 02/13/22 02/14/22 Lisa Santos MD [address] [place] [phone] PCP - General Internal Medicine 02/15/22 documented as of this encounter
--- OUTSIDE RECORDS SUMMARY | 2025-06-28 18:55 | XMS_ITS | Encounter Summary ---
Author Organization [facility] Address [address] [place] [address] Care Team Providers Care Actuarial Analyst Name Role Phone Judy Juarez MD Primary Care Provider Judy Swanson MD Primary Care Provider Lisa Mireles MD Primary Care Provider [phone] Judy Juarez MD Primary Care Provider Lisa Mireles MD Primary Care Provider [phone] Encounter Details Date Type Department Care Team Description 12/11/2017 Home Health Certification Medical Records [address] [place] [address] Services, [facility] [address] [place] [address] Social History Tobacco Use Types Packs/Day Years [...] on filedocumented in this encounter Care Teams Actuarial Analyst Relationship Specialty Start Date End Date Judy Juarez MD PCP - General Internal Medicine 01/14/17 10/23/20 Judy Juarez MD PCP - General Internal Medicine 10/24/20 11/28/20 Lisa Santos MD [address] [place] [address] PCP - General Internal Medicine 11/29/20 02/12/22 Judy Juarez MD [address] [place] [address] [id number] PCP - General Internal Medicine 02/13/22 02/14/22 Lisa Santos MD [address] [place] [address] PCP - General Internal Medicine 02/15/22 documented as of this encounter
--- OUTSIDE RECORDS SUMMARY | 2025-06-28 18:55 | XMS_ITS | Data Portability ---
Author Organization [place] [facility] Address [address] [place] [address] Care Team Providers Care Clerical Support Specialist Name Role Phone [facility] Primary Care Provider [employer] OTHER Assessment Encounter Date Assessment Date Assessment LastModified by Organization Details LastModified Time 09/03/2021 09/03/2021 Proper Personal Protective Equipment (PPE), including gloves, eye protection and masks were donned and doffed appropriately and all equipment cleaned using approved technique with germicidal disposable wipes prior to and after care of this patient according to [facility]'s infection prevention protocols. Overview/History : 51 yo [...] encouraged to seek pulmonary consult through PCP [email or web address] Not available 09/03/2021 12:56:33 Plan of Treatment Reminders Order Date Submit Date Provider Last Modified By Organization Details Last Modified Time Details Appointments None recorded. Lab unlisted lab - covid-19 (novel coronavirus ) PCR 2021 [facility] (Centralized Electronic Ordering - All Locations), Patient Can Go To The Location Of Their Choice, [address] 13:16:40 Referral None recorded. Procedures None recorded. Surgeries None recorded. Imaging None recorded. Medication Orders benzonatate 200 mg capsule 2021 [facility] [place], [place], [address] [facility] [facility], [place], [address], 13:01:10 Patient TargetsNo targets recorded. Patient Instructions Encounter Date Encounter Id Patient Instructions Last Modified By Organization Details Last Modified Time 09/03/2021 [id number] Inhaler Instructions Before use, you need to [...] after cleaning actually helps it work better. [email or web address] Not available 09/03/2021 11:39:16 Reason for Referral [...] ng. Resul t repor sandee to the [facility]. This test has been autho rized by the FDA under an Emerg ency Use Autho rizat ion (EUA) for use by autho rized labor atori es. Test perfo rmed by [facility] at the [facility] and Abhijeet gutierrez, [address] [place] [id number] . CLIA ID: [id number] , CAP: [id number] 96. Medic al Direc tor: Ruma Ramirez, [...] limit ed to the [facility] or[facility] at the [facility] which is certi fied under the Clini [...] Go To The Location Of Their Choice, [id number] 09/05/2021 13:16:40 Result Notes None recorded. Procedures Surgical History Date Name Laterality Status Provider Name and Address Organization Details Recorded Time 09/03/19 22 ECG Interpretation - completed MARGARET Bazzi [address], [place], [address], [place] [facility] 09/03/2021 12:41:20 Imaging Results [...] 0.3 mg (0.3 mL) Into the muscle [id number] As Needed for anaphylaxis ; for 2 [...] Not Available Not Available No t Available [place]field Saline 0.65 % nasal drops active Not [...] Vitals Date Recorded Heart rate Oxygen saturation Body temperature Respiratory rate Systolic And Diastolic Provider Name and Address Organization Details Last Updated DateTime 2 90 /min 95 % 99.5 [degF] 18 /min 136/98 [...] ICD10 Code Diagnosis IMO Codes Diagnosis Note [id number] MARGARET Bazzi [facility] [address] [place] [address] 09/03/2021 11:37:26 09/04/2021 08:55:24 Viral upper respiratory tract infection 592951668 J06.9 Exposure t o communicable disease [id number] Z20.822 Health Concerns Section Related Observation LastModified by Organization Detai ls LastModified Time None Recorded Concern Status LastModified by Organization Details LastModified Time None Recorded Advance Directives Directive None Recorded Payers Insurance Date Sequence Insurance Name Policy Number Policy Mckeon Covered Member ID Mckeon Member ID Guarantor Name 09/04/2021 1 [facility] - DOS PRIOR TO 2022 - DUAL ELIGIBLE (MEDICARE REPLACEMENT/ADV ANTAGE - HMO) Josselin Harrington [id number] Josselin Harrington 09/03/2021 1 *SELF PAY* Josselin Harrington [id number] Josselin Harrington 09/03/2021 1 MEDICARE B-[place]: [facility] Josselin Harrington [id number] Josselin Harrington 09/03/2021 1 [facility] - DOS PRIOR TO 2022 - DUAL ELIGIBLE (MEDICARE REPLACEMENT/ADV ANTAGE - HMO) Josselin Harrington [id number] Josselin Harrington Notes Date Note Type Note [...] a heart attack-no smoking, no hx of [place]/CVA, reports cholesterol is fine , and denies any family hx of CAD. MARGARET Bazzi [address] [place], [address], [place] [facility] 09/03/2021 12:56:49 OBGyn Episode No OBEpisode recorded.
--- OUTSIDE RECORDS SUMMARY | 2025-06-28 18:55 | XMS_ITS | Encounter Summary ---
Author Organization [facility] Address [address] [place] [address] Care Team Providers Care Marine Transport Professionals Name Role Phone Judy Juarez MD Primary Care Provider Norman Jain Primary Care Provider Judy Harris MD Primary Care Provider Judy Swanson MD Primary Care Provider Lisa Mireles MD Primary Care Provider [phone] Judy Juarez MD Primary Care Provider Lisa Mireles MD Primary Care Provider [phone] Encounter Details Date Type Department Care Team Description 09/07/2016 Automotive Electrical Helper Report Medical Records [address] [place] [address] Corine Hyde, RD, LDN [address] [place] [address] Social History Tobacco Use Types Packs/Day Years [...] on filedocumented in this encounter Care Teams Marine Transport Professionals Relationship Specialty Start Date End Date Judy Juarez MD PCP - General Internal Medicine 10/12/15 12/02/16 Radhika, Norman PCP - General Internal Medicine 12/03/16 01/13/17 Judy Juarez MD PCP - General Internal Medicine 01/14/17 10/23/20 Judy Juarez MD PCP - General Internal Medicine 10/24/20 11/28/20 Lisa Santos MD [address] [place] [id number] PCP - General Internal Medicine 11/29/20 02/12/22 Judy Juarez MD [address] [place], [place] [phone] PCP - General Internal Medicine 02/13/22 02/14/22 Lisa Santos MD [address] [place] [address] PCP - General Internal Medicine 02/15/22 documented as of this encounter
--- OUTSIDE RECORDS SUMMARY | 2025-06-28 18:55 | XMS_ITS | Encounter Summary ---
Author Organization [facility] Address [address] [place] [address] Care Team Providers Care Collateral Clerk Name Role Phone Judy Juarez MD Primary Care Provider Judy Swanson MD Primary Care Provider Lisa Mireles MD Primary Care Provider [phone] Judy Juarez MD Primary Care Provider Lisa Mireles MD Primary Care Provider [phone] Encounter Details Date Type Department Care Team Description 04/13/2019 Orders Only Medical Records [address] [place] [address] Epifanio Seth PA-C Social History Tobacco Use [...] on filedocumented in this encounter Care Teams Collateral Clerk Relationship Specialty Start Date End Date Judy Juarez MD PCP - General Internal Medicine 6/12/17 3/21/21 Judy Juarez MD PCP - General Internal Medicine 10/24/20 11/28/20 Lisa Santos MD [address] [place] [address] PCP - General Internal Medicine 11/29/20 02/12/22 Judy Juarez MD [address] [place] [address] PCP - General Internal Medicine 02/13/22 02/14/22 Lisa Santos MD [address] [place] [address] PCP - General Internal Medicine 02/15/22 documented as of this encounter
--- OUTSIDE RECORDS SUMMARY | 2025-06-28 18:55 | XMS_ITS | Clinical Summary ---
Author Organization [facility] Address [address] [facility] [address] [place] [address] Phone Care Team Providers Care Integrity Engineer Name Role Phone Angel Mariano MD Primary Care Provider [phone] Social History Tobacco Use Types Packs/Day Years [...] topic Medical Devices Not on file Insurance [facility] MEDICARE PART A & B [place] B Member Subscriber Plan / Payer (Ef fective 2017-Present) Name:Josselin Harrington Member ID:[id number] Relation to Subscriber:Self Name:Josselin Harrington Subscriber ID:[id number] Payer ID:[id number] Group ID:Not on file Type:Medicare Address: [employer] [address] [place], [place] [address] [place] B Member Subscriber Plan / Payer (Ef fective 2017-Present) Name:Lance Harringtongilbert Gustafson Member ID:[id number] Relation to Subscriber:Self Name:Lance Harringtont Sj Subscriber ID:[id number] Payer ID:[id number] Group ID:Not on file Type:Medicare Address: [employer] [address] [place] [phone] [place] A & B Member Subscriber Plan / Payer (Ef fective 2017-Present) Name:Juany Josselin E Member ID:[id number] Relation to Subscriber:Self Name:Juany Josselin E Subscriber ID:[id number] Payer ID:[id number] Group ID:Not on file Type:Medicare Address: [employer] [address] [place] [phone] [place] & [place] & B Care Teams Integrity Engineer Relationship Specialty Start Date End Date Angel Mariano MD [email or web address] PCP - General Family Medicine 09/11/17 Additional Source Comments The information contained in this document represents components of the legal health record. It is not the complete legal health record.[facility]
--- OUTSIDE RECORDS SUMMARY | 2025-06-28 18:55 | XMS_ITS | Encounter Summary ---
Author Organization [facility] Address [address] [place] [address] Care Team Providers Care Gas Prover Name Role Phone Judy Juarez MD Primary Care Provider Judy Swanson MD Primary Care Provider Lisa Mireles MD Primary Care Provider [phone] Judy Juarez MD Primary Care Provider Lisa Mireles MD Primary Care Provider Encounter Details Date Type Department Care Team Description 09/19/2020 Old Medical Records Medical Records [address] [place] [address] Abstract, Provider Social History Tobacco Use Types [...] on filedocumented in this encounter Care Teams Gas Prover Relationship Specialty Start Date End Date Judy Juarez MD PCP - General Internal Medicine 01/14/17 10/23/20 Judy Juarez MD PCP - General Internal Medicine 10/24/20 11/28/20 Lisa Santos MD [address] [place] [address] [phone] PCP - General Internal Medicine 11/29/20 02/12/22 Judy Juarez MD [address] [place] [address] PCP - General Internal Medicine 02/13/22 02/14/22 Lisa Santos MD [address] [place] [address] PCP - General Internal Medicine 02/15/22 documented as of this encounter
--- OUTSIDE RECORDS SUMMARY | 2025-06-28 18:55 | XMS_ITS | Encounter Summary ---
Author Organization [facility] Address [address] [place] [address] Care Team Providers Care Mattress Renovator Name Role Phone Judy Juarez MD Primary Care Provider Judy Swanson MD Primary Care Provider Lisa Mireles MD Primary Care Provider [phone] Judy Juarez MD Primary Care Provider Lisa Mireles MD Primary Care Provider [phone] Encounter Details Date Type Department Care Team Description 05/19/2018 Transfer Records Medical Records [address] [place] [address] Abstract, Provider Social History Tobacco Use Types [...] on filedocumented in this encounter Care Teams Mattress Renovator Relationship Specialty Start Date End Date Judy Juarez MD PCP - General Internal Medicine 01/14/17 10/23/20 Judy Juarez MD PCP - General Internal Medicine 10/24/20 11/28/20 Lisa Santos MD [address] [place] [address] PCP - General Internal Medicine 11/29/20 02/12/22 Judy Juarez MD [address] [place] [address] PCP - General Internal Medicine 02/13/22 02/14/22 Lisa Santos MD [address] [place] [address] PCP - General Internal Medicine 02/15/22 documented as of this encounter
--- OUTSIDE RECORDS SUMMARY | 2025-06-28 18:55 | XMS_ITS | Encounter Summary ---
Author Organization [facility] Address [address] [place] [address] Care Team Providers Care Head Of Science Name Role Phone Judy Juarez MD Primary Care Provider Judy Swanson MD Primary Care Provider Lisa Mireles MD Primary Care Provider Judy Juarez MD Primary Care Provider Lisa Mireles MD Primary Care Provider [phone] Encounter Details Date Type Department Care Team Description 01/05/2019 Orders Only Medical Records [address] [place] [address] Judy Juarez MD Social History Tobacco Use [...] on filedocumented in this encounter Care Teams Head Of Science Relationship Specialty Start Date End Date Judy Juarez MD PCP - General Internal Medicine 01/14/17 10/23/20 Judy Juarez MD PCP - General Internal Medicine 10/24/20 11/28/20 Lisa Santos MD [address] [place] [address] PCP - General Internal Medicine 11/29/20 02/12/22 Judy Juarez MD [address] [place] [address] PCP - General Internal Medicine 02/13/22 02/14/22 Lisa Santos MD [address] [place] [phone] PCP - General Internal Medicine 02/15/22 documented as of this encounter
--- OUTSIDE RECORDS SUMMARY | 2025-06-28 18:55 | XMS_ITS | Encounter Summary ---
Author Organization [facility] Address [address] [place] [address] Care Team Providers Care Snagger Name Role Phone Lisa Santos MD Primary Care Provider [phone] Judy Juarez MD Primary Care Provider [facility] Lisa Santos MD Primary Care Provider [phone] Reason for Visit * Reason Comments E-prescribe Rx Request Encounter Details Date Type Department Care Team Description 05/23/2021 Refill Gastroenterology [address] [place] [address] Kain Carolina PA-C E-prescribe Rx Request Social History Tobacco Use [...] on filedocumented in this encounter Care Teams Snagger Relationship Specialty Start Date End Date Lisa Santos MD [address] [place] [address] PCP - General Internal Medicine 11/29/20 02/12/22 Judy Juarez MD [address] [place] [address] PCP - General Internal Medicine 02/13/22 02/14/22 Lisa Santos MD [address] [place] [address] PCP - General Internal Medicine 02/15/22 documented as of this encounter
--- OUTSIDE RECORDS SUMMARY | 2025-06-28 18:55 | XMS_ITS | Encounter Summary ---
Author Organization [facility] Address [address] [place] [address] Care Team Providers Care Logistics Director Name Role Phone Judy Juarez MD Primary Care Provider Norman Jain Primary Care Provider Judy Harris MD Primary Care Provider Judy Swanson MD Primary Care Provider Lisa Mireles MD Primary Care Provider [phone] Judy Juarez MD Primary Care Provider Lisa Mireles MD Primary Care Provider [phone] Encounter Details Date Type Department Care Team Description 12/06/2015 [facility] Medical Records [address] [place] [id number] Abstract, Provider Social History Tobacco Use Types [...] on filedocumented in this encounter Care Teams Logistics Director Relationship Specialty Start Date End Date Judy Juarez MD PCP - General Internal Medicine 10/12/15 12/02/16 Radhika, Pcp PCP - General Internal Medicine 12/03/16 01/13/17 Judy Juarez MD PCP - General Internal Medicine 01/14/17 10/23/20 Judy Juarez MD PCP - General Internal Medicine 10/24/20 11/28/20 Lisa Santos MD [address] [place] [id number] PCP - General Internal Medicine 11/29/20 02/12/22 Judy Juarez MD [address] [place] [id number] PCP - General Internal Medicine 02/13/22 02/14/22 Lisa Santos MD [address] [place] [address] PCP - General Internal Medicine 02/15/22 documented as of this encounter
--- OUTSIDE RECORDS SUMMARY | 2025-06-28 18:55 | XMS_ITS | Encounter Summary ---
Author Organization [facility] Address [address] [place] [address] Care Team Providers Care Warranty Clerk Name Role Phone Judy Juarez MD Primary Care Provider Judy Swanson MD Primary Care Provider Lisa Mireles MD Primary Care Provider [phone] Judy Juarez MD Primary Care Provider Lisa Mireles MD Primary Care Provider Reason for Referral * Radiology Services (Routine) - Closed Specialty Diagnoses / Procedures Referred By Joey hunt Referred To Contact Radiology Diagnoses Crohn's disease of colon without complication (HCC) Procedures CT ABD & PELVIS W/O CONTRAST Ruma Tinajero MD [address] [place] [address] [address] Referral ID Status Reason Start Date Expiration Date Visits Re quested Visits Authorized [id number] Closed 01/28/2019 04/30/2019 1 1 Reason for Visit * Reason Onset Date Comments Diarrhea 01/26/2019 Encounter Details Date Type Department Care Team Description 01/26/2019 Telephone Gastroenterology [address] [place] [address] Ruma Tinajero MD Diarrhea Social [...] EDT Spoke with patient she will call [employer] to schedule CT/map * Telephone Encounter - [...] (HCC) documented in this encounter Care Teams Warranty Clerk Relationship Specialty Start Date End Date Judy Juarez MD PCP - General Internal Medicine 01/14/17 10/23/20 Judy Juarez MD PCP - General Internal Medicine 10/24/20 11/28/20 Lisa Santos MD [address] [place] [id number] PCP - General Internal Medicine 11/29/20 02/12/22 Judy Juarez MD [address] [place] [address] PCP - General Internal Medicine 02/13/22 02/14/22 Lisa Santos MD [address] [place] [id number] PCP - General Internal Medicine 02/15/22 documented as of this encounter
--- OUTSIDE RECORDS SUMMARY | 2025-06-28 18:55 | XMS_ITS | Encounter Summary ---
Author Organization [facility] Address [address] [place] [address] Care Team Providers Care Rotor Winder Name Role Phone Judy Juarez MD Primary Care Provider Norman Jain Primary Care Provider Judy Harris MD Primary Care Provider Judy Swanson MD Primary Care Provider Lisa Mireles MD Primary Care Provider [phone] Judy Juarez MD Primary Care Provider Lisa Mireles MD Primary Care Provider [phone] Encounter Details Date Type Department Care Team Description 06/12/2016 [facility] Medical Records [address] [place] [address] Corine Hyde, RD, LDN [address] [place] [address] Social History Tobacco Use Types Packs/Day Years [...] on filedocumented in this encounter Care Teams Rotor Winder Relationship Specialty Start Date End Date Judy Juarez MD PCP - General Internal Medicine 10/12/15 12/02/16 Radhika, Norman PCP - General Internal Medicine 12/03/16 01/13/17 Judy Juarez MD PCP - General Internal Medicine 01/14/17 10/23/20 Judy Juarez MD PCP - General Internal Medicine 10/24/20 11/28/20 Lisa Santos MD [address] [place] [id number] PCP - General Internal Medicine 11/29/20 02/12/22 Judy Juarez MD [address] [place], [place] [id number] PCP - General Internal Medicine 02/13/22 02/14/22 Lisa Santos MD [address] [place] [id number] PCP - General Internal Medicine 02/15/22 documented as of this encounter
== END ==
LOC: HO.CARD 13:58
PROVIDERS: PCP Family Medicine
DX: R00.2 Palpitations (principal)
CPT/HCPCS: 93306

== ENCOUNTER → 2025-06-28 14:01 | Outpatient (BNV) | payer OTHER, SELFPAY | PROVIDERS: PCP Family Medicine; Visit Provider Internal Medicine | DX: R93.1 Abnormal findings on diagnostic imaging of heart and coronary circulation (principal) | CPT/HCPCS: 93306 ==

== ENCOUNTER 2025-07-14 13:26 | Outpatient (AMB) | payer OTHER, SELFPAY ==
--- OUTSIDE RECORDS SUMMARY | 2024-06-19 08:40 | XMS_ITS ---
Author Organization Total [facility] Address [address] [place] [address] Care Team Providers Care Analog Ic Design Architect Name Role Phone BRITNEY STOREY Primary Care Provider Unavailab Debo Seymour Unavailable [phone] REASON FOR VISIT ULTRA - BLOATING PAIN Encounters Encounter Location Date Provider Diagnosis [facility] [address] [address] 06/19/2024 Debo Patel Plan Of Treatment Next Appt Details Provider Name:Debo head, 06/16/2026 02:20:00 PM, [address] [place] [address], [address], [place], [address], Progress Notes * JAIME SÁNCHEZDOB:1970 (55 yo F)Acc No.[id number]:06/19/2024 PROGRESS NOTES Patient: JAIME CARVAJAL Appointment Provider: Jennifer Patel M.D. :1970 A ge:54 Y S ex:Female Date:06/19/2024 Address:[address] [place], [place] [id number] Pcp:BRITNEY STOREY Subjective: * Chief Complaints: * 1 . ULTRA - BLOATING PAIN. * Medical History: Objective: * Vitals: Assessment: Plan: * Treatment: * Images: Billing Information: * Visit Code: * Procedure Codes: * Electronic signature of Mary Patel MD on 07/14/2025 at 08:52 PM EST Sign off status: Pending * Appointment Provider: Jennifer Patel M.D. Date: 08/19/2023 Generated for Jasmyn gordon/Linda/Fredrick on: 09/14/2024 08:52 PM EST
--- NOTE | 2025-07-14 13:43 | A.OFFVIS_ITS ---
Vital Signs 07/14/25 13:44 Height 5 ft Weight 195 lb BMI 38.1 BP 132/80 Blood Pressure Location Rt brachial Position Sitting Pulse 84 Pulse Source Pulse Oximeter Pulse Oximetry (%) 95 Oxygen Delivery Method Room Air Intake Visit Reasons: R/S from 05/10 per office. Intake Note: ESTABLISHED PATIENT for mgmt of GERD + Constipation. Imaging done, lab outstanding. Pt forgot about blood work and has been trying to get to the lab but has difficulty with transportation. Chief Complaint; Pt denies any current GI concerns or changes. Confirms she is taking her current rx w/o complication. Inside Sales Person Required: No Accompanied by: Family/Other Allergies Penicillins (PENICILLINS) Allergy (Severe, Verified 07/14/25 13:44) ANAPHYLAXIS simvastatin Allergy (Mild, Verified 07/14/25 13:44) weird feeling ibuprofen Adverse Reaction (Intermediate, Verified 07/14/25 13:44) stomach upset, irritates Chrohn's HPI HPI R/S from 05/10 per office.: Details: LAST VISIT GERD (gastroesophageal reflux disease) Abdominal pain Chronic idiopathic constipation Crohn disease History of diverticulitis Diverticulosis Transaminitis Plan Long discussion with patient about dietary choices. Low fat, low salt, low carb and high-protein diet recommended. Patient was encouraged to lose weight and also try to do low-impact exercises and walking. Will change omeprazole to pantoprazole. Patient reports that she has to buy [id number] as pharmacy was unable to supply her with the tablets. Occasional postprandial epigastric pain and reflux, without dyspepsia, dysphagia or odynophagia. Avoid dietary triggers in late night snacking. Staying upright for minimum 3 hours after meals discussed with patient. Low FODMAP diet stressed with patient as well. Less abdominal bloating and less cramping. Follow-up in 6 months we will recheck liver enzymes next visit again and repeat ultrasound. Patient is agreeable to plan of care and verbalizes understanding of instructions. She was given the op portunity to ask questions and all questions answered. ? Thank you for allowing me to participate in her care New pantoprazole 20 mg PO DAILY 90 tabs 1RF Discontinued omeprazole Discontinued Reason: Doctor's Order 20 mg PO DAILY 90 tabs 2RF K21.9 TODAY'S VISIT Patient is here today for follow-up. Patient reports that she has been doing fairly well. Her bloating has got much better. She is occasionally having abdominal bloating postprandially depending on what she eats. She is moving her bowels better now that she is taking Colace 2 in the morning and 2 in the evening. Patient denies any melena, hematochezia, unintentional weight loss or ribbon like stools. Patient tries to eat healthier. Patient reports that she never started pantoprazole. He currently is taking omeprazole 20 mg. Patient reports that she feels like her acid reflux is coming back. Patient feels like her throat is scratchy, feeling like the acid is coming up any irritating her esophagus and her throat. Patient denies dyspepsia, dysphagia or odynophagia. Patient reports that she is unable to swallow capsules and previously took 20 mg omeprazole tablets, to every morning patient is doing well with mesalamine. Denies any mucus in the stool PFSH Medical History Tubular adenoma Chronic idiopathic constipation Crohn disease Unspecified asthma, uncomplicated Dysuria Surgical History Hx of colonoscopy History of esophagogastroduodenoscopy (EGD) No pertinent past surgical history Family History Father Suicide Mother Hypertension Diabetes Paternal Grandmother Stroke Brother In good health Sister In good health Social History Housing: Other Housing Other:: mobile home Alcohol intake: current Alcohol intake frequency: does not drink Patient Tobacco Use Status: Never used Tobacco e-Cigarette/Vaping Use: Never Used Second Hand Smoke Exposure: Yes service: No Current occupational status: disabled Current occupational exposures/hazards: No Cognitive needs: No Hearing needs: No Vision needs: No Review of Systems Const Denies weight gain and Denies weight loss ENT Reports no additional complaints, Denies dysphagia and Denies odynophagia Card Reports no additional complaints Resp Reports no additional complaints GI Reports abdominal pain (Occasional right upper quadrant cramping), Denies belching, Denies melena, Reports bloating, Denies change in bowel habits, Denies dysphagia, Denies excessive flatus, Denies dyspepsia, Reports heartburn (Occasional), Denies diarrhea, Denies loose stools, Denies nausea, Denies odynophagia and Denies vomiting Musc Reports no additional complaints Neuro Reports no additional complaints Psych Reports no additional complaints Endo Reports no additional complaints Physical Exam Vital Signs: Last Vital Signs Pulse 84 07/14/25 13:44 BP 132/80 07/14/25 13:44 Pulse Ox 95 07/14/25 13:44 Oxygen Delivery Method Room Air 07/14/25 13:44 BMI result Body Mass Index 38.1 Const General: healthy appearing, no acute distress and well developed Nutritional Appearance: obese Orientation/consciousness: patient oriented x3 Resp Effort & Inspection: normal respiratory effort, able to speak in complete sentences, no tracheal deviation and symmetric chest movement Auscultation: clear to auscultation bilaterally Cardio Rate: regular rate GI Inspection: Yes normal to inspection, No distended and Yes obesity Palpation (GI): Soft to palpation, not firm, nontender and No hepatosplenomegaly present Auscultation: normal bowel sounds General: Yes no CVA tenderness Back/Spine/Pelvis Back: no CVA tenderness Skin General skin exam: elasticity normal, turgor normal and dry skin Neuro General: patient oriented x3 Psych Appearance: grossly normal Mental Status: mental status grossly normal Assessment & Plan Assessment & Plan (1) GERD (gastroesophageal reflux disease): Code(s): K21.9 - Gastro-esophageal reflux disease without esophagitis Category: Medical Qualifiers: Esophagitis presence: esophagitis presence not specified Qualified Code(s): K21.9 - Gastro-esophageal reflux disease without esophagitis (2) Elevated liver enzymes: Code(s): R74.8 - Abnormal levels of other serum enzymes Category: Medical (3) Crohn disease: Code(s): K50.90 - Crohn's disease, unspecified, without complications Category: Medical Qualifiers: Digestive disease complication type: without complication Gastrointestinal tract location: large intestine Qualified Code(s): K50.10 - Crohn's disease of large intestine without complications (4) Chronic idiopathic constipation: Code(s): K59.04 - Chronic idiopathic constipation Category: Medical (5) Constipation: Code(s): K59.00 - Constipation, unspecified Category: Medical Qualifiers: Constipation type: slow transit constipation Qualified Code(s): K59.01 - Slow transit constipation (6) Screening for colon cancer: Code(s): Z12.11 - Encounter for screening for malignant neoplasm of colon Category: Medical (7) Diverticulitis: Code(s): K57.92 - Diverticulitis of intestine, part unspecified, without perforation or abscess without bleeding Category: Medical (8) Left lower quadrant pain: Code(s): R10.32 - Left lower quadrant pain Category: Medical (9) Abdominal pain: Code(s): R10.9 - Unspecified abdominal pain Category: Medical Qualifiers: Abdominal location: upper abdomen, unspecified Qualified Code(s): R10.1 0 - Upper abdominal pain, unspecified (10) Right upper quadrant pain: Code(s): R10.11 - Right upper quadrant pain Category: Medical Plan Patient reports that she feels like her reflux min back. Will increase omeprazole to 40 mg daily. Avoid dietary triggers in late night snacking. Staying upright for minimum 3 hours after meals discussed with patient. Patient will continue taking Colace twice a day. She was encouraged to increase fluid intake and activity to promote bowel motility. Simethicone sent to pharmacy, may use it as needed. Patient will follow-up in 6 months. Will order another ultrasound with elastography and liver enzymes. Patient is agreeable to current plan of care and verbalizes understanding of instructions. He was given the opportunity to ask questions and all questions answered. Thank you for allowing me to participate in his care Orders: Orders Liver Panel Today R74.01 - Elevation of levels of liver transaminase levels US abdomen comp w elastography Today R79.89 - Other specified abnormal findings of blood chemistry Medications: New omeprazole 40 mg (2 x 20 mg) PO DAILY 180 tabs 2RF K21.9 - Gastro-esophageal reflux disease without esophagitis simethicone (Gas Relief (simethicone)) 125 mg PO BID-TID PRN 90 tabs 3RF abdominal distention Coding Level of Care Code Est Pt Level 4 (85679) Add On Problem Visit Only Diagnoses Gastroesophageal reflux disease, unspecified whether esophagitis present K21.9 Esophagitis presence: esophagitis presence not specified Elevated liver enzymes R74.8 Crohn's disease of large intestine without complication K50.10 Digestive disease complication type: without complication Gastrointestinal tract location: large intestine Chronic idiopathic constipation K59.04 Slow transit constipation K59.01 Constipation type: slow transit constipation Screening for colon cancer Z12.11 Diverticulitis K57.92 Left lower quadrant pain R10.32 Pain of upper abdomen R10.10 Abdominal location: upper abdomen, unspecified Right upper quadrant pain R10.11 Time Spent (min) 35 Comment 25 minutes spent with patient and additional 10 minutes spent reviewing her records
[2025-07-14 13:44] VITALS: BP 132/80; PULSE 84; O2SAT 95; BMI 38.1
--- OUTSIDE RECORDS SUMMARY | 2025-07-14 20:52 | XMS_ITS | Encounter Summary ---
Author Organization [facility] Address [address] [place] [address] Phone Care Team Providers Care Rivet Passer Name Role Phone Unknown, Unknown Primary Care Provider Angel Espinoza MD Primary Care Provider [phone] Encounter Details Date Type Department Care Team (Late st Contact Info) Description 09/02/2017 Transcribe Orders [facility] Specimen Processing [address] [place] [address] Angel Mariano MD [address] [facility] [address] [place] [address] [email or web address] Examination (Primary Dx) Social History Tobacco Use [...] EST) SODIUM 141 133 - 146 mmol/L [facility] POTASSIUM 4.7 3.3 - 5.1 mmol/L [facility] CHLORIDE 100 96 - 108 mmol/L [facility] CO2 29 21 - 35 mmol/L [facility] BUN 12 6 - 19 mg/dL [facility] CREATININE 0.50 0.5 - 1.5 mg/dL [facility] GLUCOSE 85 70 - 99 mg/dL [facility] ALBUMIN 4.2 3.9 - 4.8 g/dL [facility] TOTAL PROTEIN 7.1 6.5 - 8.0 g/dL [facility] CALCIUM 9.5 8.4 - 10.3 mg/dL [facility] ALKALINE PHOSPHATASE 118(H) 39 - 117 U/L [facility] TOTAL BILIRUBIN 0.4 0 - 1.2 mg/dL [facility] AST 19 0 - 37 U/L [facility] ALT 23 0 - 40 U/L [facility] GLOBULIN 2.9 1 - 4.8 g/dL [facility] EGFR >60 60 - 1000 mL/min/1.7 3m2 [facility] Comment:Abnormal if <60. If patient is -[place], multiply the result by 1.21. ANION GAP 17 10 - 20 mmol/L [facility] Blood 09/02/2017 8:20 AM EST 09/02/2017 11:12 AM EST us Angel Mariano MD LAB BLOOD BKR ORDERABLES Final R esult Performing Organization Address City/State/[facility] Co de Phone Number [facility] [address] [place] [address] * (ABNORMAL) CBC (09/02/2017 8:20 AM EST) WBC 7.10 3.40 - 11.20 K/uL [facility] RBC 4.35 3.80 - 4.80 M/uL [facility] HGB 11.0(L) 12.0 - 15.0 g/dL [facility] HCT 35.2(L) 36.0 - 46.0 % [facility] PLT 398 130 - 400 K/uL [facility] MCV 80.9 79.0 - 98.0 fL [facility] MCH 25.3(L) 27.0 - 34.8 pg [facility] MCHC 31.3(L) 31.5 - 36.0 g/dL [facility] RDW 16.2(H) 10.8 - 14.6 % [facility] MPV 9.8 9.4 - 12.4 fl [facility] NRBC 0.00 /100 WBCs [facility] ABSOLUTE NRBC 0.00 K/uL [facility] Blood 09/02/2017 8:20 AM EST 09/02/2017 11:12 AM EST us Angel Mariano MD LAB BLOOD BKR ORDERABLES Final R esult [facility] [address] [place] [address] documented in this encounter Visit Diagnoses Diagnosis Examination- Primary Unspecified examination documented in this encounter Care Teams Rivet Passer Relationship Specialty Start Date End Date Unknown, Unknown, MD PCP - General 09/02/17 09/10/17 Angel Mariano MD [email or web address] PCP - General Family Medicine 09/11/17 documented as of this encounter Additional Source Comments The information contained in this document represents components of the legal health record. It is not the complete legal health record.[facility]
--- OUTSIDE RECORDS SUMMARY | 2025-07-14 20:52 | XMS_ITS | Patient Health Record ---
Author Organization - [facility] Address [address] [place] [address] Care Team Providers Care Editor Farm Journal Name Role Phone Royajes Madelyn Unavailable [phone] PILAR QUIÑONES Unavailable [phone] TONIE QUIÑONES Unavailable [phone] Daphne Keller Unavailable Allergies Allergen (clinical drug ingredient) Drug/Non Drug Allergy documented on EMR Reaction Allergy Type Onset Date Status ibuprofen Ibuprofen Unknown Drug Allergy Active simvastatin Simvastatin Unknown Drug Allergy Act sadiq Penicillin Unknown Drug Allergy Active Reason For Referral No Information Medications Medication SIG (Take, Route, Frequency, Duration) Notes Start Date End Date Status Azelastine HCl 0.1 % Inhale 2 Sprays in each nostril twice daily Nasal; Duration: 25 days allergies Active Vitamin D3 50 MCG (1999 UT) TAKE 1 TABLET BY MOUTH ONCE DAILY Oral; Duration: 90 Days low vit d Active LORazepam 0.5 MG Take 1/2 -1 tablet by mouth twice a day as needed for anxiety- keep doses 4-6 hours apart Oral; Duration: 30 Days Active Budesonide 32 MCG/ACT instill 2 SPRAYS IN EACH nostril TWICE daily Nasal; Duration: 30 Days allergies Active CoQ-10 100 MG as directed Orally as scheduled suppement Active Vitamin B-12 1000 MCG TAKE 1 TABLET BY MOUTH ONCE DAILY Oral; Duration: 90 Days supplement Active Pantoprazole Sodium 20 MG TAKE 1 TABLET BY MOUTH ONCE DAILY Oral; Duration: 90 days for GERD GERD Active Celecoxib 100 MG TAKE 1 CAPSULE BY MOUTH TWICE DAILY NEEDED FOR PAIN. TAKE WITH food Oral; Duration: 30 Days PRN pain Active Docusate Sodium 100 MG TAKE 2 CAPSULES BY MOUTH TWICE DAILY Oral; Duration: 90 Days constipation Active EPINEPHrine 0.3 MG/0.3ML INJECT 1 PEN INTO MUSCLE NEEDED FOR ANAPHYLAXIS REACTION call THEN 911 Injection; Duration: 2 Days allergies Active Loratadine 10 MG TAKE 1 TABLET BY MOUTH DAILY Oral; Duration: 90 days for allergies/asthma allergies Active Albuterol Sulfate HFA 108 (90 Base) MCG/ACT INHALE 2 PUFFS BY MOUTH 4 TIMES DAILY NEEDED FOR WHEEZING Inhalation; Duration: 25 Days asthma Active Mesalamine 400 MG TAKE 3 CAPSULES (1200MG) BY MOUTH TWICE DAILY Oral; Duration: 20 days for crohns Active Polymyxin B-Trimethoprim 96080-9.1 UNIT/ML INSTILL 1 DROP in EACH EYE THREE TIMES DAILY FOR 7 TO 10 DAYS Ophthalmic; Duration: 30 days for pink eye scared to start using them Not-Taking lamoTRIgine 100 MG Take 1 tablet by mouth once a day Oral; Duration: 90 days for anxiety panic/anxiety Active Humira States not currently taking, but usually takes for chrons Not-Taking Nystatin 400878 UNIT/ML TAKE 1 TEASPOONFUL -5ml- BY MOUTH DAILY FOR 10 DAYS. SWISH AND swallow Mouth/Throat; Duration: 10 days PRN for thrush from steroid inhaler Active Rosuvastatin Calcium 40 MG TAKE 1 TABLET BY MOUTH ONCE DAILY Oral; Duration: 90 Days HLD Active Fluticasone-Salmete rol 500-50 MCG/ACT INHALE 1 PUFF BY MOUTH EVERY 12 HOURS Inhalation; Duration: 30 Days asthma Active Montelukast Sodium 10 MG TAKE 1 TABLET BY MOUTH DAILY Oral; Duration: 30 Days allergies/asthma Active Social History Tobacco Use: Social History Observation Description Date Details (start date - stop date) Never Smoker NA - NA Tobacco Control (Standard) Question Answer Notes Tobacco use: Nonsmoker AUDIT-C (Standard) Question Answer Notes Did you have a drink containing alcohol in the p ast year? No Points 0 Interpretation Negative Problems Problem Type SNOMED Code ICD Code Onset Dates Problem Status W/U Status Risk Notes Problem Chronic pain (20180320) Other chronic pain (G89.29) Active confirmed Problem Urge incontinence of urine (16259730) Urge incontinence (N39.41) Active confirmed Problem Hyperlipidaemia (27536811) Hyperlipidemia, unspecified hyperlipidemia type (E78.5) Active confirmed Problem Asthma without status asthmaticus (82390473) Asthma, unspecified asthma severity, unspecified whether complicated, unspecified whether persistent (J45.909) Active confirmed Problem History of fall (413872812) Risk for falls (Z91.81) Active confirmed Problem Obesity (917645038) Obesity (BMI 30-39.9) (E66.9) Active confirmed Problem Rheumatoid arthritis (69653764) Rheumatoid arthritis, involving unspecified site, unspecified whether rheumatoid factor present (M06.9) Active confirmed Problem Chronic constipation (341274921) Chronic constipation (K59.09) Active confirmed Problem Allergic disposition (finding) (190493838) Allergy, sequela (T78.40XS) Active confirmed Problem Crohn's disease (83898851) Crohn's disease with complication, unspecified gastrointestinal tract location (K50.919) Active confirmed Problem Gastroesophageal reflux disease (disorder) (135586557) Chronic GERD (K21.9) Active confirmed Vital Signs Height-cm 147.32 cm 03/30/2025 Weight-kg 86.18 kg 03/30/2025 Height 58 in 03/30/2025 Weight 190 lbs 03/30/2025 BMI 39.71 kg/m2 03/30/2025 Encounters Encounter Location Date Provider Diagnosis - [address] [address] 03/30/2025 Daphne Keller Crohn's disease with complication, unspecified gastrointestinal tract location K50.919 ; Hyperlipidemia, unspecified hyperlipidemia type E78.5 ; Other chronic pain G89.29 ; Rheumatoid arthritis, involving unspecified site, unspecified whether rheumatoid factor present M06.9 ; Asthma, unspecified asthma severity, unspecified whether complicated, unspecified whether persistent J45.909 ; Allergy, sequela T78.40XS ; Chronic constipation K59.09 ; Chronic GERD K21.9 ; Obesity (BMI 30-39.9) E66.9 ; Urge incontinence N39.41 and Risk for falls Z91.81 - [address] [address] 04/02/2025 TONIE QUIÑONES - [address] [address] 04/20/2025 PILAR QUIÑONES Assessments Encounter Date Diagnosis (ICD Code) Assessment Notes Treatment Notes Treatment Clinical Notes Section Notes 03/30/2025 Crohn's disease with complication, unspecified gastrointestinal tract location (ICD-10 - K50.919) Reports clinically stable Reports Humira helps to treat but not currently taking Will continue current medications as listed above in verified medication list and continue care with prescribing provider Continue current treatment plan. Follow up with PCP/Specialty as indicated. Member prognosis related to the multiple diagnoses good 03/30/2025 Hyperlipidemia, unspecified hyperlipidemia type (ICD-10 - E78.5) Reports clinically stable. Would benefit from review with health health care coach related to to diet, which can play an important role in lowering cholesterol. Discussed including heart healthy options into diet such at oatmeal, almonds, avocados, fish with high levels of omega-3 fatty acids, plant based proteins. Limiting saturated/trans fats. Will continue current medications as listed above in verified medication list and continue care with prescribing provider Member prognosis related to the multiple diagnoses [facility] 03/30/2025 Other chronic pain (ICD-10 - G89.29) Reports chronic pain secondary to RA. Reports pain is stable, but often not well controlled. Advised on non-pharmacolog ical pain: environmental (comfortable lighting, temperature and positioning), distraction (music, puzzles or games) and CBT. Will continue current medications as listed above in verified medication list and continue care with prescribing provider Member prognosis related to the multiple diagnoses [facility] 03/30/2025 Rheumatoid arthritis, involving unspecified site, unspecified whether rheumatoid factor present (ICD-10 - M06.9) Reports clinically stable Reports Humira helps to treat but not currently taking Will continue current medications as listed above in verified medication list and continue care with prescribing provider Continue current treatment plan. Follow up with PCP/Specialty as indicated. Member prognosis related to the multiple diagnoses good 03/30/2025 Asthma, unspecified asthma severity, unspecified whether complicated, unspecified whether persistent (ICD-10 - J45.909) Reports clinically stable. No PFT/RPM to review Unknown level of control. Advised to avoid passive smoke exposure. Advised to minimize exposure to factors that cause exacerbation of symptoms. Seek emergent care for: Chest pain, respiratory distress, severe wheezing, lightheadedness Call PCP if continued shortness of breath despite inhaler use, worsening PEAK flow measurements or new respiratory symptoms. Patient condition is stable. Patient will continue current medications as listed above in verified medication list and continue care with prescribing provider Member prognosis related to the multiple diagnoses good 03/30/2025 Allergy, sequela (ICD-10 - T78.40XS) Reports clinically stable. No PFT/RPM to review Unknown level of control. Advised to avoid passive smoke exposure. Advised to minimize exposure to factors that cause exacerbation of symptoms. Seek emergent care for: Chest pain, respiratory distress, severe wheezing, lightheadedness Call PCP if continued shortness of breath despite inhaler use, worsening PEAK flow measurements or new respiratory symptoms. Patient condition is stable. Patient will continue current medications as listed above in verified medication list and continue care with prescribing provider Member prognosis related to the multiple diagnoses good 03/30/2025 Chronic constipation (ICD-10 - K59.09) Reports clinically stable Will continue current medications as listed above in verified medication list and continue care with prescribing provider Continue current treatment plan. Follow up with PCP/Specialty as indicated. Member prognosis related to the multiple diagnoses good 03/30/2025 Chronic GERD (ICD-10 - K21.9) Reports clinically stable. Would benefit from diet review with health health care coach to identify and mitigate trigger of symptoms. Advised discussing prison PPI use with PCP, if appropriate. Will continue current medications as listed above in verified medication list and continue care with prescribing provider Member prognosis related to the multiple diagnoses good 03/30/2025 Obesity (BMI 30-39.9) (ICD-10 - E66.9) Reports clinically stable. Would benefit from health coaching related to goal setting and diet/lifestyle modifications. Continue current treatment plan. Follow up with PCP/Specialty as indicated. Member prognosis related to the multiple diagnoses good 03/30/2025 Urge incontinence (ICD-10 - N39.41) Reports clinically stable. Functional assessment completed above. Denies additional need for incontinence supplies to prevent skin breakdown or emotional distress. Continue current treatment plan. Follow up with PCP/Specialty as indicated. Member prognosis related to the multiple diagnoses good 03/30/2025 Risk for falls (ICD-10 - Z91.81) Reports clinically stable. Fall assessment and plan documented and discussed above. Denies additional need for DME to prevent fall or injury. Continue current treatment plan. Follow up with PCP/Specialty as indicated. Member prognosis related to the multiple diagnoses good 03/30/2025 Other Plan of care was discussed (with teach back) and agreed upon with member/caregive r. All questions answered in an apparently satisfactory manner. Member prognosis related to the multiple diagnoses good 04/20/2025 Other Setting Fitness Goals material was published, Mastering Motivation material was published, Staying Motivated While on a Weight Loss Plan material was published - Discussed 2 objectives based on the [employer]/RN Care Plan - Member voiced understanding for the call and the support. 25/02 line reinforced. Plan Of Treatment No Information Insurance Providers Payer Name Payer Address Payer Phone Subscriber Number Group Number Insured Name Patient Relationship to Insured Coverage Start Date Coverage End Date [facility] [address] [address] [place] [address] [id number] Josselin Harrington Self - patient is the insured 9 Medicaid of [facility] [address] [place] [address] [id number] Josselin Harrington Self - patient is the insured Medicare of [facility] [address] [place] [id number] [phone] [id number] Josselin Harrington Self - patient is the insured Medical (General) History Hospitalization History Reason Date(Month/Year) Denies past hospitalization
--- OUTSIDE RECORDS SUMMARY | 2025-07-14 20:52 | XMS_ITS | Encounter Summary ---
Author Organization [facility] Address [address] [place] [address] Phone Care Team Providers Care Plug Grower Name Role Phone Unknown, Unknown Primary Care Provider Angel Espinoza MD Primary Care Provider [phone] Encounter Details Date Type Department Care Team (Late st Contact Info) Description 09/07/2017 Transcribe Orders [facility] Specimen Processing [address] [place] [address] Angel Mariano MD [address] [place] [address] [address], [address] [place] [address] [email or web address] Fever, unspecified fever cause (Primary Dx); Malaise [...] PM EST) Influenza A Ag Negative Negative [facility] Influenza B Ag Negative Negative [facility] Other (Nasal) 09/07/2017 12: 00 PM EST 09/07/2017 3:52 PM EST us Angel Mariano MD MICROBIOLOGY - GENERAL ORDERABLE S Final Result [facility] [address] [place] [address] documented in this encounter Visit Diagnoses Diagnosis Fever, unspecified fever cause- Primary Malaise Other malaise and fatigue documented in this encounter Care Teams Plug Grower Relationship Specialty Start Date End Date Unknown, Unknown, MD PCP - General 09/02/17 09/10/17 Angel Mariano MD [email or web address] PCP - General Family Medicine 09/11/17 documented as of this encounter Additional Source Comments The information contained in this document represents components of the legal health record. It is not the complete legal health record.[facility]
--- OUTSIDE RECORDS SUMMARY | 2025-07-14 20:52 | XMS_ITS | Clinical Summary ---
Author Organization [facility] [address] [place] [address] [place] [address] Phone Care Team Providers Care Job Counselor Name Role Phone Lisa Santos MD Primary Care Provider [phone] Allergies Active Allergy Reactions Criticality Noted Date [...] time each day. 2 Active sodium chloride (Bladen Saline) 0.65 % nasal drops 3 Drops [...] nodules 05/05/2016 Overview (08/07/2024): on imaging at [place], followed by Dr. Gaytan. CAT scan 04/23/17: [...] ascending colitis on bxy ESOPHAGOGASTRODUODENOSCOPY 09/12/2015 PROCEDURE: TX ESOPHAGOGASTRODUODENOSCOPY TRANSORAL DIAGNOSTIC; COMMENT: Normal with nl duodenal, antral and GE junction bxys BREAST BIOPSY 06/25/2018 Left PROCEDURE: BX BREAST; PERC NEEDLE CORE W/IMAG GUID; COMMENT: BENIGN FIBROADENOMATOUS CHANGES. OTHER SURGICAL HISTORY 02/2021 PROCEDURE: MAMMOGRAM, SCREENING, BOTH BREASTS Medical History Medical History Date Comments Depression with anxiety 10/06/2015 DX:Depre ssion with anxiety; COMMENT: [facility] - therapist Khushi triyohana to see her once in a week Hypercholesteremia 10/06/2015 DX:Hyperchole steremia Asthma 10/06/2015 DX:Asthma; COMME NT: Dr. Gaytan Ulcerative colitis ([facility] V24, [facility] V28) DX:Ulcerative colitis (HCC); COMMENT: Dr. Baez Ankylosing spondylitis ([facility]/ [facility] V24, [facility] V28) DX:Ankylosing spondylitis (H CC); COMMENT: Dr. Mckay Hepatic steatosis DX:Hepatic sher atosis Pelvic pain 11/24/2015 DX:Pelvic pain Iron deficiency anemia 11/25/2015 DX:Iron d eficiency anemia Vitamin D deficiency 11/25/2015 DX:Vitamin D deficiency Disc disease, degenerative, cervical 12/13/2015 DX:Disc disease, degenerative, cervical Lung nodules 05/2016 DX:Lung nodules; COMMENT: on imaging at [place], followed by Dr. Gaytan. Fracture of rib of left side 08/2017 DX: Fracture of rib of left side; COMMENT: Left 7th and 8th fracture Fracture of lumbar spine ([facility]/HCC V24, [facility] V28) 08/2017 DX:Fracture of lumbar spine ([facility]); COMMENT: Macario fracture Sternal fracture 08/2017 DX:Sternal frac ture Crohn's disease ([facility]/HCC V24 , [facility]/HCC V28) DX:Crohn's disease (HCC) Family History Medical [...] 1989 Cervical Cancer Screening: Pap Smear 12/11/2018 12/12/2015 RSV Immunization Adult Patients (1 - [...] PANEL Routine 08/21/2019 HIV SCREENING Routine 01/10/2018 PAP SMEAR Routine 12/12/2015 COLONOSCOPY Routine 09/12/2015 from Last [...] is recommended in 1 year. MAMMO LOCATION: [facility], [address] [place] [address], [address], . -------- FINAL REPORT -------- Dictated By: Roselyn Martinez Dictated Date: 09/03/2024 08:19 ET Assigned Physician: Roselyn Martinez Reviewed and Electronically Signed By: Roselyn Martinez Signed Date: 09/03/2024 08:24 ET Workstation ID: [id number] Transcribed By: Self Edit Transcribed Date: 09/03/2024 [...] is recommended in 1 year. MAMMO LOCATION: [facility], [address] [place] [address], [address], . -------- FINAL REPORT -------- Dictated By: Roselyn Martinez Dictated Date: 09/03/2024 08:19 ET Assigned Physician: Roselyn Martinez Reviewed and Electronically Signed By: Roselyn Martinez Signed Date: 09/03/2024 08:24 ET Workstation ID: [id number] Transcribed By: Self Edit Transcribed Date: 09/03/2024 08:19 ET Result [facility] Lisa Santos MD IMG BI PROCEDURES Final Result * Annual BMP Blood Test (12/06/2020) [facility] Annual BMP Blood Test abstracted [facility] Provider HEALTH MAINTENANCE Final Result * Hepatitis C Screening (12/06/2020) [facility] Hepatitis C Screening abstracted [facility] Provider HEALTH MAINTENANCE Final Result * (ABNORMAL) Lipid panel (08/21/2019) [facility] LDL/HDL Ratio 4 0 - 4 Triglycerides 186(A) 0 - 150 mg/dL Cholesterol 198 0 - 200 mg/dL HDL 56 >=40 mg/dL LDL Cholesterol 105(A) 0 - 100 mg/dL Blood Venous blood specimen / Unknown Result [facility] Provider LAB BLOOD ORDERABLES Micaela l Result * HIV Screening (01/10/2018) [facility] HIV Screening abstracted [facility] Provider HEALTH MAINTENANCE Final Result * Pap Smear (12/12/2015) [facility] Pap smear abstracted, negative [facility] Provider HEALTH MAINTENANCE Final Result * Colonoscopy [...] ID:ICO Type:Not on file Address: [place] [address] [place] [address] Care Teams Job Counselor Relationship Specialty Start Date End Date Lisa Santos MD [address] [place] [address] PCP - General Internal Medicine 02/15/22
--- OUTSIDE RECORDS SUMMARY | 2025-07-14 20:53 | XMS_ITS | Clinical Summary ---
Author Organization [facility] Address [address] [facility] [address] [place] [address] Phone Care Team Providers Care Board Filler Name Role Phone Angel Mariano MD Primary Care Provider [phone] Social History Tobacco Use Types Packs/Day Years [...] topic Medical Devices Not on file Insurance [facility] MEDICARE PART A & [place] A & B Care Teams Board Filler Relationship Specialty Start Date End Date Angel Mariano MD [email or web address] PCP - General Family Medicine 09/11/17 Additional Source Comments The information contained in this document represents components of the legal health record. It is not the complete legal health record.[facility]
--- OUTSIDE RECORDS SUMMARY | 2025-07-14 20:53 | XMS_ITS | Patient Health Record ---
Author Organization [facility] Address [address] [place] [address] Care Team Providers Care Professor Of Art History Name Role Phone Bindu Sanders MD Primary Care Provider Boris Carbajal Jr Unavailable Allergies Allergen (clinical drug ingredient) Drug/Non Drug Allergy documented on EMR Reaction Allergy Type Onset Date Status PCN (uncoded) Unknown Allergy Active Reason For Referral No Information Medications Medication SIG (Take, Route, Fr equency, Duration) Notes Start Date End Date Status Omeprazole Active Ibuprofen Active LaMICtal Active Metoprolol Tartrate Active Social History Tobacco Use: Social History Observation Description Date Details (start date - stop date) Never Smoker NA - NA Social History Drugs/Alcohol: Social Info Question Answer Notes Alcohol Screen Did you have a drink containing alcohol in the past year? No Points 0 Interpretation Negative Tobacco Use: Social Info Question Answer Notes Tobacco Use/Smoking Patient is a nonsmoker Section Notes: Tobacco and alcohol use are negative. Problems Problem Type SNOMED Code ICD Code Onset Dates Problem Status W/U Status Risk Notes Problem Liver function tests abnormal (574380447) Nonspecific abnormal results of liver function study [...] Start Date Coverage End Date MEDICARE OF [place] [address] [place] [id number] Josselin Harrington Self - patient is the insured MEDICAID OF [facility] [address] [place] [phone] [id number] Josselin Harrington Self - patient is the insured Medical (General) History Medical History History ICD Code back and hip pain following a fall hypertension depression anxiety esophageal reflux elevated lipids low vitamin D level
--- OUTSIDE RECORDS SUMMARY | 2025-07-14 20:53 | XMS_ITS | Encounter Summary ---
Author Organization [facility] Address [address] [facility] [place] [address] Phone Care Team Providers Care Mid Level Developer Name Role Phone Angel Mariano MD Primary Care Provider [phone] Encounter Details Date Type Department Care Team (Latest Contact Info) Description 09/11/2017 Transcribe Orders [facility] Specimen Processing [address] [place] [address] Angel Mariano MD [address] [facility], [address] [place] [address] [email or web address] Moderate persistent asthma, unspecified whether complicated (Primary [...] EST) WBC 3.31(L) 3.40 - 11.20 K/uL [facility] RBC 4.59 3.80 - 4.80 M/uL [facility] HGB 11.5(L) 12.0 - 15.0 g/dL [facility] HCT 35.5(L) 36.0 - 46.0 % [facility] PLT 358 130 - 400 K/uL [facility] MCV 77.3(L) 79.0 - 98.0 [facility] MCH 25.1(L) 27.0 - 34.8 pg [facility] MCHC 32.4 31.5 - 36.0 g/dL [facility] RDW 15.6(H) 10.8 - 14.6 % [facility] MPV 9.9 9.4 - 12.4 [facility] NRBC 0.00 /100 WBCs [facility] ABSOLUTE NRBC 0.00 K/uL [facility] Blood 09/11/2017 8:25 AM EST 09/11/2017 12:17 PM EST us Angel Mariano MD LAB BLOOD BKR ORDERABLES Final R esult Performing Organization Address City/[facility]/ZIP Co de Phone Number [address] [address] * (ABNORMAL) Basic metabolic panel (09/11/2017 8:25 AM EST) SODIUM 142 133 - 146 mmol/L [facility] CHLORIDE 101 96 - 108 mmol/L [facility] POTASSIUM 4.1 3.3 - 5.1 mmol/L [facility] CO2 26 21 - 35 mmol/L [facility] BUN 9 6 - 19 mg/dL [facility] CREATININE <0.50(L) 0.5 - 1.5 mg/dL [facility] GLUCOSE 96 70 - 99 mg/dL [facility] CALCIUM 9.2 8.4 - 10.3 mg/dL [facility] EGFR Test Not Performed. >60 mL/min/1.7 3m2 [facility] Comment:Abnormal if <60. If patient is -Estonian, multiply the result by 1.21. ANION GAP 19 10 - 20 mmol/L [facility] Blood 09/11/2017 8:25 AM EST 09/11/2017 12:17 PM EST us Angel Mariano MD LAB BLOOD BKR ORDERABLES Final R esult Performing Organization Address City/[facility]/ZIP Co de Phone Number [address] [address] documented in this encounter Visit Diagnoses Diagnosis Moderate persistent asthma, unspecified whether complicated- Primary Essential hypertension, benign Hyperlipidemia, unspecified hyperlipidemia type documented in this encounter Care Teams Mid Level Developer Relationship Specialty Start Date End Date Angel Mariano MD [email or web address] PCP - General Family Medicine 09/11/17 documented as of this encounter Additional Source Comments The information contained in this document represents components of the legal health record. It is not the complete legal health record.[facility]
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
--- OUTSIDE RECORDS SUMMARY | 2025-07-14 20:53 | XMS_ITS | Patient Health Record ---
Author Organization [facility] Address [address] [facility] [address] [place] [address] Care Team Providers Care Mess Attendant Crew Name Role Phone BRITNEY STOREY Primary Care Provider Unavailab Debo Seymour Unavailable [phone] Allergies Allergen (clinical drug ingredient) Drug/Non Drug Allergy documented on EMR Reaction Allergy Type Onset Date Status Bee Sting Unknown Allergy Active ibuprofen Ibuprofen Irritates Crohns Drug Allergy Active Penicillin Unknown Drug Allergy Active simvastatin Simvastatin Sick Drug Allergy Act sadiq Results Component Value Reference Range Notes Urinalysis Reviewed date:06/10/2025 03:46:41 PM Interpretation: Performing Lab: Notes/Report: PH 8.0 PROTEIN NEG GLUCOSE NEG BLOOD NEG Reason For Referral No Information Medications Medication SIG (Take, Route, Frequency, Duration) Notes Start Date End Date Status Clotrimazole-Betamethasone 1-0.05 % 1 application to affected area Externally Twice a day; Duration: 14 days 05/29/2023 Active Loratadine 10 MG Oral; Duration: 90 Active Omeprazole 20 MG 1 capsule Orally Onc e a day Active Nystatin 773365 UNIT/GM 1 application Ex ternally Twice a day Active Budesonide 32 MCG/ACT 2 sprays (1 spray in each nostril) Nasally Once a day; Duration: 30 day(s) Active lamoTRIgine 100 MG Oral; Duration: 30 Active Azelastine HCl 137 MCG/SPRAY Nasal; Duration: 25 Days Act sadiq Mesalamine 400 MG 1 capsule Oral Twice a day; Duration: 20 days Active Advair Diskus 500-50 MCG/ACT 1 puff Inhalation Twice a day Active Estradiol Vaginal Cream 0.01% 1 Gram to the affected area Vaginal/Vulva Twice a week; Duration: 90 Days 06/10/2025 Active CoQ-10 50 MG as directed Orally Active Tylenol 1 tab Oral; Duration : 14 days Active Terconazole 0.8 % 1 applicatorful at b edtime Vaginal EVERY NIGHT X 3; Duration: 3 days 06/03/2024 Active Montelukast Sodium 10 MG Oral; Duration: 30 Active Vitamin B-12 1000 MCG TAKE 1 TABLET BY M OUTH ONCE DAILY Oral; Duration: 90 Active AZO Cranberry 250-30 MG as directed Orally Active Humira Pen 40 MG/0.4ML Subcutaneous; Duration: 28 Active LORazepam 0.5 MG 1 tablet at bedtime as needed Orally Once a day 06/03/2024 Active Docusate Sodium 100 MG 1 capsule Oral Tw ice a day; Duration: 90 days Active Rosuvastatin Calcium 40 MG Oral; Duration: 90 Active Vitamin D3 50 MCG (1999 UT) TAKE 1 TABLET BY MOUTH ONCE DAILY Oral; Duration: 90 Active Social History Tobacco Use: Social History [...] Status W/U Status Risk Notes Problem Menopause (724776093) Menopausal and female climacteric states (N95.1) Active confirmed Problem Postmenopausal atrophic vaginitis (83616629) Postmenopausal atrophic vaginitis (N95.2) Active confirmed Problem Age-related osteoporosis (378509787) Age-related osteoporosis without current pathological fracture (M81.0) Active confirmed Problem Polycystic ovary syndrome (disorder) (309745947) Polycystic ovarian syndrome (E28.2) Active confirmed Problem Morbid obesity (disorder) (372856641) Morbid (severe) obesity due to excess calories (E66.01) Active confirmed Problem Hyperlipidemia (18217162) Hyperlipidemia, unspecified (E78.5) Active confirmed Problem Recurrent depression (379526249) Other recurrent depressive disorders (F33.8) Active confirmed Problem Anxiety disorder (212951257) Anxiety disorder, unspecified (F41.9) Active confirmed Problem Vitreous opacities (160582660) Other vitreous opacities, unspecified eye (H43.399) Active confirmed Problem Asthma (111970673) Other asthma (J45.998) Active confirmed Problem Crohn's disease (30010508) Crohn's disease, unspecified, with unspecified complications (K50.919) Active confirmed Problem Fatty liver (439163156) Fatty (change of) liver, not elsewhere classified (K76.0) Active confirmed Problem Ankylosing spondylitis (4566453) Ankylosing spondylitis of unspecified sites in spine (M45.9) Active confirmed Problem Atrophy of vulva (017662584) Atrophy of vulva (N90.5) Active confirmed Problem Gastroesophageal reflux disease with esophagitis (disorder) (922538585) Gastro-esophageal reflux disease with esophagitis, without bleeding (K21.00) Active confirmed Vital Signs Temperature 97.5 degrees Fahrenheit 06/10/2025 PT D ECLINED WT CK TODAY 06/10/2025 Blood pressure diastolic 82 mm Hg 06/10/2025 PT DECLINED WT CK TODAY 06/10/2025 Height 59 in 06/10/2025 PT DECLINED WT CK TODAY 06/10/2025 Blood pressure systolic 126 mm Hg 06/10/2025 PT D ECLINED WT CK TODAY 06/10/2025 Encounters Encounter Location Date Provider Diagnosis [facility] [address] [place] [address] 06/10/2025 Debo Patel Encounter for gynecological examination (general) (routine) without abnormal findings Z01.419 ; Encounter for screening mammogram for malignant neoplasm of breast Z12.31 ; Personal history of diseases of the skin and subcutaneous tissue Z87.2 ; Atrophy of vulva N90.5 ; Postmenopausal atrophic vaginitis N95.2 ; Morbid (severe) obesity due to excess calories E66.01 and Age-related osteoporosis without current pathological fracture M81.0 [address] [place] [address] 07/30/2024 Debo Patel Assessments Encounter Date Diagnosis (ICD Code) Assessment Notes Treatment Notes Treatment Clinical Notes Section Notes 06/10/2025 Encounter for screening mammogram for malignant neoplasm of breast (ICD-10 - Z12.31) REGULAR MAMMOGRAMS AND SBE'S WERE RECOMMENDED. 06/10/2025 Encounter for gynecological examination (general) (routine) without abnormal findings (ICD-10 - Z01.419) NO PAP TEST, DUE IN 2025. 06/10/2025 Personal history of diseases of the skin and subcutaneous tissue (ICD-10 - Z87.2) DISCUSSED HX OF INTERTRIGO. KEEP AREAS CLEAN AND DRY RECOMMENDED ZEASORB POWDER (MEDICATED) TO HELP PREVENT RECURRENCE OF INTERTRIGO. 06/10/2025 Atrophy of vulva (ICD-10 - N90.5) DISCUSSED VULVAR ATROPHY. APPLY ESTRADIOL CREAM ALONG VULVA. 06/10/2025 Postmenopausal atrophic vaginitis (ICD-10 - N95.2) CONTINUE APPLYING ESTRADIOL CREAM INTRAVAGINALLY TWICE WEEKLY 06/10/2025 Morbid (severe) obesity due to excess calories (ICD-10 - E66.01) DISCUSSED MORBID OBESITY AND ITS NEGATIVE IMPACT ON HER HEALTH. RECOMMENDED SHE CONSIDER JOINING A WEIGHT LOSS PROGRAM. 06/10/2025 Age-related osteoporosis without current pathological fracture (ICD-10 - M81.0) MUSA HAD BMD DONE AND SAYS SHE WAS TOLD SHE IS OSTEOPOROTIC. WE WILL GET HER BMD RESULTS. DISCUSSED OSTEOPOROSIS AND ITS NEGATIVE IMPACT ON HER HEALTH. DISCUSSED TX OPTIONS INCLUDING PROLIA VS RECLAST. MUSA HAS BEEN ADVISED TO TAKE PROLIA. DISCUSS WITH HER PCP PROLIA REQUIRES FURTHER TX WITH FOSAMAX AFTER THIS HAS BEEN DISCONTINUED. ADEQUATE CALCIUM AND VIT D. WEIGHT BEARING EXERCISES. REPEAT BMD IN 2026. Plan Of Treatment Pending Test Test Name Order Date MM Digital Mammo Screening 05/29/2023 MM Digital Mammo Screening 06/03/2024 MM Digital Mammo Screening 06/10/2025 Next Appt Details Provider Name:Debo head, 06/16/2026 02:20:00 PM, [address] [place] [address], [address], [place], [address], Insurance Providers Payer Name Payer Address Payer Phone Subscriber Number Group Number Insured Name Patient Relationship to Insured Coverage Start Date Coverage End Date [address] [address] [id number] JAIME SÁNCHEZ Self - patient is the [...]
== END 2025-07-14 14:19 | disposition home or self-care (01) ==
LOC: HO.HGI 13:27
PROVIDERS: PCP Family Medicine; Visit Provider Nurse Practitioner Family
DX: K57.92 Diverticulitis of intestine, part unspecified, without perforation or abscess without bleeding (principal); R10.10 Upper abdominal pain, unspecified; R10.32 Left lower quadrant pain; R10.11 Right upper quadrant pain; K50.10 Crohn's disease of large intestine without complications; K21.9 Gastro-esophageal reflux disease without esophagitis
CPT/HCPCS: 99214; G2211

== ENCOUNTER → 2025-07-14 13:26 | Outpatient (BNVA) | payer OTHER, SELFPAY | PROVIDERS: PCP Family Medicine; Visit Provider Nurse Practitioner Family | DX: K21.9 Gastro-esophageal reflux disease without esophagitis (principal); K59.04 Chronic idiopathic constipation; K59.01 Slow transit constipation; K50.10 Crohn's disease of large intestine without complications; R14.0 Abdominal distension (gaseous); K57.92 Diverticulitis of intestine, part unspecified, without perforation or abscess without bleeding | CPT/HCPCS: 99212 ==

== ENCOUNTER 2025-07-20 15:04 | Outpatient (AMB) | payer OTHER, SELFPAY ==
--- OUTSIDE RECORDS SUMMARY | 2024-06-19 08:40 | XMS_ITS ---
Author Organization Total [facility] Address [address] [place] [address] Care Team Providers Care Storage Facility Housekeeper Name Role Phone BRITNEY STOREY Primary Care Provider Unavailab Debo Seymour Unavailable [phone] REASON FOR VISIT ULTRA - BLOATING PAIN Encounters Encounter Location Date Provider Diagnosis [facility] [address] [address] 06/19/2024 Debo Patel Plan Of Treatment Next Appt Details Provider Name:Debo head, 06/16/2026 02:20:00 PM, [address] [place] [address], [address], [place], [address], Progress Notes * JAIME SÁNCHEZDOB:1970 (55 yo F)Acc No.[id number]:06/19/2024 PROGRESS NOTES Patient: JAIME CARVAJAL Appointment Provider: Jennifer Patel M.D. :1970 A ge:54 Y S ex:Female Date:06/19/2024 Address:[address] [place], [place] [id number] Pcp:BRITNEY STOREY Subjective: * Chief Complaints: * 1 . ULTRA - BLOATING PAIN. * Medical History: Objective: * Vitals: Assessment: Plan: * Treatment: * Images: Billing Information: * Visit Code: * Procedure Codes: * Electronic signature of Mary Patel MD on 07/20/2025 at 07:24 PM EST Sign off status: Pending * Appointment Provider: Jennifer Patel M.D. Date: 08/19/2023 Generated for Jasmyn gordon/Linda/Fredrick on: 09/20/2024 07:24 PM EST
[2025-07-20 15:14] VITALS: BP 120/68; PULSE 84
--- NOTE | 2025-07-20 15:14 | A.OFFVIS_ITS ---
Vital Signs 07/20/25 15:14 Height 5 ft BMI Reason not done Patient refused/unable BP 120/68 Blood Pressure Location Lt brachial Position Sitting Pulse 84 Pulse Source Pulse Oximeter Intake Visit Reasons: f/u after echo Allergies Penicillins (PENICILLINS) Allergy (Severe, Verified 07/14/25 13:44) ANAPHYLAXIS simvastatin Allergy (Mild, Verified 07/14/25 13:44) weird feeling ibuprofen Adverse Reaction (Intermediate, Verified 07/14/25 13:44) stomach upset, irritates Jenniferwynatalie's Medication List - Last Reconciled 07/20/25 by Mireya Feng NP-C acetaminophen ER (Tylenol 8 Hour) 1,300 mg PO Q12H PRN adalimumab (Humira(CF) Pen) 40 mg subcut Q2W albuterol sulfate 2.5 mg (3 mL) inhalation Q4-6H PRN 30 days albuterol sulfate 90 mcg/actuation 2 puffs inhalation QID PRN azelastine intranasal budesonide 32 mcg/actuation 1 spray intranasal DAILY cholecalciferol (vitamin D3) 50 mcg PO DAILY 3 months clotrimazole 1% 1 appful vaginal BEDTIME PRN clotrimazole-betamethasone 1-0.05 % 1 appl topical BID 2 weeks coenzyme Q10 (Co Q-10) 100 mg PO DAILY cranberry extract 250 mg PO DAILY cyanocobalamin (vitamin B-12) 1,000 mcg PO DAILY 30 days docusate sodium 200 mg (2 x 100 mg) PO BID epinephrine (EpiPen 2-Isma) 0.3 mg (0.3 mL) IM Q10M PRN estradiol 0.01%(0.1mg/gram) Start with application daily for 2 weeks. pea-sized to urethra 3 times a week following 30 days fluticasone propion-salmeterol 500-50 mcg/dose (Advair Diskus) 1 inh inhalation Q12H ibuprofen 400 mg PO Q8H PRN lamotrigine (Lamictal) 100 mg PO DAILY loratadine 10 mg PO DAILY 90 days lorazepam 0.5 mg PO BID PRN mesalamine 1,200 mg (3 x 400 mg) PO BID montelukast 10 mg PO DAILY nystatin 5 mL PO DAILY 10 days nystatin-triamcinolone 100,000-0.1 unit/g-% 1 appl topical TID omeprazole 40 mg (2 x 20 mg) PO DAILY rosuvastatin 40 mg PO DAILY simethicone (Gas Relief (simethicone)) 125 mg PO BID-TID PRN tizanidine 2 mg PO TID PRN 30 days HPI HPI f/u after echo: Details: The patient is a 55 year old female presenting for follow-up of heart palpitations. Her cardiac history includes a Holter monitor in 2021 that showed sinus rhythm and sinus tachycardia, and an echocardiogram from 2021 showed normal ejection fraction (EF) with mild septal and basal asymmetric hypertrophy. A recent echocardiogram on 06/28/2025 revealed an EF of 59%, mild left ventricular hypertrophy, and normal-sized atria with no obvious valve abnormalities. An EKG from 06/02/2025 showed sinus rhythm, a right bundle branch block, and inferior and lateral Q-waves. She reports intermittent symptoms of feeling off and occasional generalized discomfort, but is unsure of the cause. She denies typical chest pains but feels her heart rate is slow during these episodes. Past medical history is significant for asthma, Crohn's disease, chronic idiopathic constipation, menopause, and osteoporosis. She recently sustained a wrist fracture that is still healing. Her only cardiac type medication is rosuvastatin 40 mg daily. The patient reports that she was previously tested for sleep apnea with negative results, but is scheduled for a repeat evaluation with a home sleep study, as she sometimes wakes up at night feeling her heart's a little bit weird. [facility] Medical History Tubular adenoma Chronic idiopathic constipation Crohn disease Unspecified asthma, uncomplicated Dysuria Surgical History Hx of colonoscopy History of esophagogastroduodenoscopy (EGD) No pertinent past surgical history Family History Father Suicide Mother Hypertension Diabetes Paternal Grandmother Stroke Brother In good health Sister In good health Social History Housing: Other Housing Other:: mobile home Alcohol intake: current Alcohol intake frequency: does not drink Patient Tobacco Use Status: Never used Tobacco e-Cigarette/Vaping Use: Never Used Second Hand Smoke Exposure: Yes service: No Current occupational status: disabled Current occupational exposures/hazards: No Cognitive needs: No Hearing needs: No Vision needs: No Review of Systems Const All systems reviewed & are unremarkable except as noted in HPI and below Denies weakness ENT Denies dizziness Card Details: Vague feeling of being off at times Denies chest pain, Denies chest pain with activity, Denies syncope, Denies rapid heart rate, Denies pedal edema, Denies edema, Denies leg edema, Denies lightheadedness, Reports palpitations, Denies dyspnea, Denies dyspnea on exertion and Denies orthopnea Resp Denies cough, Denies dyspnea and Denies dyspnea on exertion GI Denies hematochezia and Denies change in stool character Musc Denies abnormal gait, Denies muscle cramps, Denies muscle weakness, Denies numbness, Denies radiating pain into limb and Denies tingling Neuro Denies abnormal gait, Denies dizziness, Denies syncope, Denies numbness, Denies tingling and Denies weakness Endo Reports palpitations Physical Exam Vital Signs: Last Vital Signs Pulse 84 07/20/25 15:14 BP 120/68 07/20/25 15:14 Const General: cooperative, healthy appearing, comfortable and no acute distress Orientation/consciousness: patient oriented x3 Neck Neck: Yes normal visual inspection Resp Effort & Inspection: normal respiratory effort Auscultation: clear to auscultation bilaterally, no rales, no rhonchi and no wheezes Cardio Rate: regular rate Rhythm: regular rhythm Heart sounds: S1 normal heart sound present, S2 normal heart sound present, no gallops, no murmurs and no rubs Neuro General: patient oriented x3 Extrem General: Yes normal to inspection, No no pedal edema and No calf tenderness Psych Appearance: grossly normal Mental Status: mental status grossly normal Speech and movement: Normal speech and movement present Assessment & Plan Assessment & Plan (1) Intermittent palpitations: Code(s): R00.2 - Palpitations Category: Medical Plan: Vague reports of heart palpitations. Prior cardiac testing 2021 without significant findings. Recent echocardiogram with normal EF and normal atria sizes. Will check a Holter monitor to ensure no significant arrhythmia. Plan to call her with results. (2) LVH (left ventricular hypertrophy): Code(s): I51.7 - Cardiomegaly Category: Medical Plan: Recent echo is showing mild LVH. Importance of good blood pressure control reviewed with her. Blood pressure normal at present time. (3) Hyperlipidemia: Code(s): E78.5 - Hyperlipidemia, unspecified Category: Medical Plan: [place] LDL goal less than 100. Followed by PCP. Continue rosuvastatin. Plan I informed the patient that her recent echocardiogram results were reassuring, indicating that her heart is strong, pumping well, and has no significant valve issues. We discussed her vague symptoms of feeling off and a sensation of a slow heart rate. I explained that to investigate this further, I would order a Holter monitor to check her heart's rhythm, assuming one had not already been ordered. I clarified the difference between the ordered home sleep study and the Holter monitor. I advised her to notify me if she experiences new or progressive symptoms, such as chest pain or shortness of breath with activity, as this would warrant a stress test. I recommended she stay active and scheduled a follow-up in one year, but encouraged her to return sooner if her symptoms change. At her request, I provided a printed copy of the echocardiogram report. Orders: Orders ECG 3 day holter monitor Today R00.2 - Palpitations Patient Instructions: - Your recent heart ultrasound (echocardiogram) showed that your heart is strong and working well, which is very reassuring. - We will arrange for you to wear a heart monitor (Holter monitor) for a few days to check your heart's rhythm. - Continue with your plan to have a home sleep study to check for sleep apnea, as this may be related to your symptoms. - Please contact our office if you start to feel new or worsening chest pain, pressure, or shortness of breath when you are physically active. - It is important to stay active. - Come back for a follow-up visit in one year, but call us to be seen sooner if your symptoms change or get worse. Patient was informed and verbally consented to the use of an ambient scribe for clinic note documentation during this visit. Visit time spent on chart review, interview, assessment, orders, documentation. Coding Level of Care Code Est Pt Level 3 (68900) Add On Problem Visit Only Diagnoses Intermittent palpitations R00.2 LVH (left ventricular hypertrophy) I51.7 Hyperlipidemia E78.5 Time Spent (min) 24
--- OUTSIDE RECORDS SUMMARY | 2025-07-20 19:25 | XMS_ITS | Encounter Summary ---
Author Organization [facility] Address [address] [place] [address] Phone Care Team Providers Care Motor Vehicle Representative Name Role Phone Unknown, Unknown Primary Care Provider Angel Espinoza MD Primary Care Provider [phone] Encounter Details Date Type Department Care Team (Late st Contact Info) Description 09/07/2017 Transcribe Orders [facility] Specimen Processing [address] [place] [address] Angel Mariano MD [address] [place] [address] [address] [place] [address] [email or web address] Fever, unspecified fever cause (Primary Dx); Malaise [...] PM EST) Influenza A Ag Negative Negative [facility] Influenza B Ag Negative Negative [facility] Other (Nasal) 09/07/2017 12: 00 PM EST 09/07/2017 3:52 PM EST us Angel Mariano MD MICROBIOLOGY - GENERAL ORDERABLE S Final Result [facility] [address] [place] [address] documented in this encounter Visit Diagnoses Diagnosis Fever, unspecified fever cause- Primary Malaise Other malaise and fatigue documented in this encounter Care Teams Motor Vehicle Representative Relationship Specialty Start Date End Date Unknown, Unknown, MD PCP - General 09/02/17 09/10/17 Angel Mariano MD [email or web address] PCP - General Family Medicine 09/11/17 documented as of this encounter Additional Source Comments The information contained in this document represents components of the legal health record. It is not the complete legal health record.[facility]
--- OUTSIDE RECORDS SUMMARY | 2025-07-20 19:25 | XMS_ITS | Patient Health Record ---
Author Organization - [facility] Address [address] [place] [address] Care Team Providers Care Consumer Safety Officer Name Role Phone Royajes Madelyn Unavailable [phone] PILAR QUIÑONES Unavailable [phone] TONIE QUIÑONES Unavailable [phone] Daphne Keller Unavailable Allergies Allergen (clinical drug [...] 20 days for crohns Active Polymyxin B-Trimethoprim 63453-1.1 UNIT/ML INSTILL 1 DROP in EACH EYE THREE TIMES DAILY FOR 7 TO 10 DAYS Ophthalmic; Duration: 30 days for pink eye scared to start using them Not-Taking lamoTRIgine 100 MG Take 1 tablet by mouth once a day Oral; Duration: 90 days for anxiety panic/anxiety Active Humira States not currently taking, but usually takes for chrons Not-Taking Nystatin 396850 UNIT/ML TAKE 1 TEASPOONFUL -5ml- BY MOUTH [...] Problem Status W/U Status Risk Notes Problem Gastroesophageal reflux disease (disorder) (935236501) Chronic GERD (K21.9) Active confirmed Problem Crohn's disease (52440198) Crohn's disease with complication, unspecified gastrointestinal tract location (K50.919) Active confirmed Problem Allergic disposition (finding) (018955065) Allergy, sequela (T78.40XS) Active confirmed Problem Chronic constipation (937945674) Chronic constipation (K59.09) Active confirmed Problem Rheumatoid arthritis (51156802) Rheumatoid arthritis, involving unspecified site, unspecified whether rheumatoid factor present (M06.9) Active confirmed Problem Obesity (255620215) Obesity (BMI 30-39.9) (E66.9) Active confirmed Problem History of fall (776751118) Risk for falls (Z91.81) Active confirmed Problem Asthma without status asthmaticus (16573180) Asthma, unspecified asthma severity, unspecified whether complicated, unspecified whether persistent (J45.909) Active confirmed Problem Hyperlipidaemia (66267411) Hyperlipidemia, unspecified hyperlipidemia type (E78.5) Active confirmed Problem Urge incontinence of urine (54753071) Urge incontinence (N39.41) Active confirmed Problem Chronic pain (34761865) Other chronic pain (G89.29) Active confirmed Vital Signs Height-cm 147.32 cm 03/30/2025 Weight-kg 86.18 kg 03/30/2025 Height 58 in 03/30/2025 Weight 190 lbs 03/30/2025 BMI 39.71 kg/m2 03/30/2025 Encounters Encounter Location Date Provider Diagnosis - [address] [address] 03/30/2025 Daphne Keller Crohn's disease with complication, [...] N39.41 and Risk for falls Z91.81 - [address] [address] 04/02/2025 TONIE QUIÑONES - [address] [address] 04/20/2025 PILAR QUIÑONES Assessments Encounter Date Diagnosis [...] stable. Would benefit from review with health riding coach related to to diet, which can [...] Member prognosis related to the multiple diagnoses [facility] 03/30/2025 Other chronic pain (ICD-10 - G89.29) [...] Member prognosis related to the multiple diagnoses [facility] 03/30/2025 Rheumatoid arthritis, involving unspecified site, unspecified [...] Would benefit from diet review with health riding coach to identify and mitigate trigger of symptoms. Advised discussing fci PPI use with PCP, if appropriate. Will [...] - Discussed 2 objectives based on the SOLDER SPRAYER/RN Care Plan - Member voiced understanding for the call and the support. 25/02 line reinforced. Plan Of Treatment No Information Insurance Providers Payer Name Payer Address Payer Phone Subscriber Number Group Number Insured Name Patient Relationship to Insured Coverage Start Date [facility]age End Date [facility] [address] [address] [place] [phone] [id number] Josselin Harrington Self - patient is the insured 9 Medicaid of [facility] [address] [place] [address] [id number] Josselin Harrington Self - patient is the insured Medicare of [facility] [address] [place]HE[place] [phone] [id number] Josselin Harrington Self - patient is the insured Medical (General) History Hospitalization History Reason Date(Month/Year) Denies past hospitalization
--- OUTSIDE RECORDS SUMMARY | 2025-07-20 19:25 | XMS_ITS | Encounter Summary ---
Author Organization [facility] Address [address] [place] [address] Phone Care Team Providers Care Family Practitioner Name Role Phone Unknown, Unknown Primary Care Provider Angel Esipnoza MD Primary Care Provider [phone] Encounter Details Date Type Department Care Team (Late st Contact Info) Description 09/02/2017 Transcribe Orders [facility] Specimen Processing [address] [place] [address] Angel Mariano MD [address] [facility] [address] [place] [address] [email or web address] Examination (Primary Dx) Social History Tobacco Use [...] EST) SODIUM 141 133 - 146 mmol/L [facility] POTASSIUM 4.7 3.3 - 5.1 mmol/L [facility] CHLORIDE 100 96 - 108 mmol/L [facility] CO2 29 21 - 35 mmol/L [facility] BUN 12 6 - 19 mg/dL [facility] CREATININE 0.50 0.5 - 1.5 mg/dL [facility] GLUCOSE 85 70 - 99 mg/dL [facility] ALBUMIN 4.2 3.9 - 4.8 g/dL [facility] TOTAL PROTEIN 7.1 6.5 - 8.0 g/dL [facility] CALCIUM 9.5 8.4 - 10.3 mg/dL [facility] ALKALINE PHOSPHATASE 118(H) 39 - 117 U/L [facility] TOTAL BILIRUBIN 0.4 0 - 1.2 mg/dL [facility] AST 19 0 - 37 U/L [facility] ALT 23 0 - 40 U/L [facility] GLOBULIN 2.9 1 - 4.8 g/dL [facility] EGFR >60 60 - 1000 mL/min/1.7 3m2 [facility] Comment:Abnormal if <60. If patient is -Tristanian, multiply the result by 1.21. ANION GAP 17 10 - 20 mmol/L [facility] Blood 09/02/2017 8:20 AM EST 09/02/2017 11:12 AM EST us Angel Mariano MD LAB BLOOD BKR ORDERABLES Final R esult Performing Organization Address City/State/[facility] Co de Phone Number [facility] [address] [place] [address] * (ABNORMAL) CBC (09/02/2017 8:20 AM EST) WBC 7.10 3.40 - 11.20 K/uL [facility] RBC 4.35 3.80 - 4.80 M/uL [facility] HGB 11.0(L) 12.0 - 15.0 g/dL [facility] HCT 35.2(L) 36.0 - 46.0 % [facility] PLT 398 130 - 400 K/uL [facility] MCV 80.9 79.0 - 98.0 fL [facility] MCH 25.3(L) 27.0 - 34.8 pg [facility] MCHC 31.3(L) 31.5 - 36.0 g/dL [facility] RDW 16.2(H) 10.8 - 14.6 % [facility] MPV 9.8 9.4 - 12.4 fl [facility] NRBC 0.00 /100 WBCs [facility] ABSOLUTE NRBC 0.00 K/uL [facility] Blood 09/02/2017 8:20 AM EST 09/02/2017 11:12 AM EST us Angel Mariano MD LAB BLOOD BKR ORDERABLES Final R esult [facility] [address] [place] [address] documented in this encounter Visit Diagnoses Diagnosis Examination- Primary Unspecified examination documented in this encounter Care Teams Family Practitioner Relationship Specialty Start Date End Date Unknown, Unknown, MD PCP - General 09/02/17 09/10/17 Angel Mariano MD [email or web address] PCP - General Family Medicine 09/11/17 documented as of this encounter Additional Source Comments The information contained in this document represents components of the legal health record. It is not the complete legal health record.[facility]
--- OUTSIDE RECORDS SUMMARY | 2025-07-20 19:25 | XMS_ITS | Data Portability ---
Author Organization [place] [facility] Address [address] [place] [address] Care Team Providers Care Mental Health Aide Name Role Phone [facility] Primary Care Provider [phone] [facility] FAX OTHER Assessment Encounter Date Assessment Date Assessment LastModified by Organization Details LastModified Time 09/03/2021 09/03/2021 Proper Personal Protective Equipment (PPE), including gloves, eye protection and masks were donned and doffed appropriately and all equipment cleaned using approved technique with germicidal disposable wipes prior to and after care of this patient according to [facility]'s infection prevention protocols. Overview/History : 51 [...] encouraged to seek pulmonary consult through PCP [email or web address] Not available 09/03/2021 12:56:33 Plan of Treatment Reminders Order Date Submit Date Provider Last Modified By Organization Details Last Modified Time Details Appointments None recorded. Lab unlisted lab - covid-19 (novel coronavirus ) PCR 2021 [place] (Centralized Electronic Ordering - All Locations), Patient Can Go To The Location Of Their Choice, [address] 13:16:40 Referral None recorded. Procedures None recorded. Surgeries None recorded. Imaging None recorded. Medication Orders benzonatate 200 mg capsule 2021 [facility] - [place], [place], [address], [place], [address], 13:01:10 Patient TargetsNo targets recorded. Patient Instructions Encounter Date Encounter Id Patient Instructions Last Modified By Organization Details Last Modified Time 09/03/2021 [id number] Inhaler Instructions Before use, you need to [...] after cleaning actually helps it work better. [email or web address] Not available 09/03/2021 11:39:16 Reason for Referral [...] ng. Resul t repor sandee to the [facility]. This test has been autho rized by the FDA under an Emerg ency Use Autho rizat ion (EUA) for use by autho rized labor atori es. Test perfo rmed by [facility] at the [facility] and Abhijeet gutierrez, [address] [place] [address] . CLIA ID: [id number] , CAP: [id number] 96. Medic al Direc tor: Ruma Ramirez, [...] limit ed to the [facility] at the [facility] which is certi fied under the [...] Go To The Location Of Their Choice, [id number] 09/05/2021 13:16:40 Result Notes None recorded. Procedures Surgical History Date Name Laterality Status Provider Name and Address Organization Details Recorded Time 09/03/19 22 ECG Interpretation - completed MARGARET Bazzi [address], [place], [address], [place] [facility] 09/03/2021 12:41:20 Imaging Results [...] 0.3 mg (0.3 mL) Into the muscle [id number] As Needed for anaphylaxis ; for 2 [...] Not Available Not Available No t Available [place] Saline 0.65 % nasal drops active Not [...] ICD10 Code Diagnosis IMO Codes Diagnosis Note [id number] MARGARET Bazzi [facility] [address] [place] [address] 09/03/2021 11:37:26 09/04/2021 08:55:24 Viral upper respiratory tract infection 742579853 J06.9 Exposure t o communicable disease 457966457 Z20.822 Health Concerns Section Related Observation LastModified by Organization Detai ls LastModified Time None Recorded Concern Status LastModified by Organization Details LastModified Time None Recorded Advance Directives Directive None Recorded Payers Insurance Date Sequence Insurance Name Policy Number Policy Mckeon Covered Member ID Mckeon Member ID Guarantor Name 09/04/2021 1 [facility] - DOS PRIOR TO 2022 - DUAL ELIGIBLE (MEDICARE REPLACEMENT/ADV ANTAGE - HMO) Josselin Harrington [id number] Josselin Harrington 09/03/2021 1 *SELF PAY* Josselin Harrington [id number] Josselin Harrington 09/03/2021 1 MEDIC[place] B-[place]: [facility] Josselin Harrington [id number] Josselin Harrington 09/03/2021 1 [facility] - DOS PRIOR TO 2022 - DUAL ELIGIBLE (MEDICARE REPLACEMENT/ADV ANTAGE - HMO) Josselin Harrington [id number] Josselin Harrington Notes Date Note Type Note [...] a heart attack-no smoking, no hx of SD/CVA, reports cholesterol is fine , and denies any family hx of CAD. MARGARET Bazzi [address] [place], [address], [place] [facility] 09/03/2021 12:56:49 OBGyn Episode No OBEpisode recorded.
--- OUTSIDE RECORDS SUMMARY | 2025-07-20 19:25 | XMS_ITS | Encounter Summary ---
Author Organization [facility] Address [address] [place] [address] Phone Care Team Providers Care Photography Spotter Name Role Phone Angel Mariano MD Primary Care Provider [phone] Encounter Details Date Type Department Care Team (Latest Contact Info) Description 09/11/2017 Transcribe Orders [facility] Specimen Processing [address] [place] [address] Angel Mariano MD 38 [facility], [address], [address] [place] [address] [email or web address] Moderate persistent asthma, unspecified whether complicated (Primary [...] EST) WBC 3.31(L) 3.40 - 11.20 K/uL [facility] RBC 4.59 3.80 - 4.80 M/uL [facility] HGB 11.5(L) 12.0 - 15.0 g/dL [facility] HCT 35.5(L) 36.0 - 46.0 % [facility] PLT 358 130 - 400 K/uL [facility] MCV 77.3(L) 79.0 - 98.0 [facility] MCH 25.1(L) 27.0 - 34.8 pg [facility] MCHC 32.4 31.5 - 36.0 g/dL [facility] RDW 15.6(H) 10.8 - 14.6 % [facility] MPV 9.9 9.4 - 12.4 [facility] NRBC 0.00 /100 WBCs [facility] ABSOLUTE NRBC 0.00 K/uL [facility] Blood 09/11/2017 8:25 AM EST 09/11/2017 12:17 PM EST us Angel Mariano MD LAB BLOOD BKR ORDERABLES Final R esult Performing Organization Address City/[facility]/ZIP Co de Phone Number [address] [address] * (ABNORMAL) Basic metabolic panel (09/11/2017 8:25 AM EST) SODIUM 142 133 - 146 mmol/L [facility] CHLORIDE 101 96 - 108 mmol/L [facility] POTASSIUM 4.1 3.3 - 5.1 mmol/L [facility] CO2 26 21 - 35 mmol/L [facility] BUN 9 6 - 19 mg/dL [facility] CREATININE <0.50(L) 0.5 - 1.5 mg/dL [facility] GLUCOSE 96 70 - 99 mg/dL [facility] CALCIUM 9.2 8.4 - 10.3 mg/dL [facility] EGFR Test Not Performed. >60 mL/min/1.7 3m2 [facility] Comment:Abnormal if <60. If patient is -Djiboutian, multiply the result by 1.21. ANION GAP 19 10 - 20 mmol/L [facility] Blood 09/11/2017 8:25 AM EST 09/11/2017 12:17 PM EST us Angel Mariano MD LAB BLOOD BKR ORDERABLES Final R esult Performing Organization Address City/[facility]/ZIP Co de Phone Number [address] [address] documented in this encounter Visit Diagnoses Diagnosis Moderate persistent asthma, unspecified whether complicated- Primary Essential hypertension, benign Hyperlipidemia, unspecified hyperlipidemia type documented in this encounter Care Teams Photography Spotter Relationship Specialty Start Date End Date Angel Mariano MD [email or web address] PCP - General Family Medicine 09/11/17 documented as of this encounter Additional Source Comments The information contained in this document represents components of the legal health record. It is not the complete legal health record.[facility]
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
--- OUTSIDE RECORDS SUMMARY | 2025-07-20 19:25 | XMS_ITS | Patient Health Record ---
Author Organization [facility] Address [address] [place] [address] Care Team Providers Care Volleyball Coach Name Role Phone Bindu Sanders MD Primary [...] Risk Notes Problem Liver function tests abnormal (363009166) Nonspecific abnormal results of liver function study [...] OF [place] [address] [place] [address] [id number] Josselin Harrington Self - patient is the insured MEDICAID OF [facility] [address] [place] [address] [phone] [id number] Josselin Harrington Self - patient is the insured Medical (General) History Medical History History ICD Code back and hip pain following a fall hypertension depression anxiety esophageal reflux elevated lipids low vitamin D level
--- OUTSIDE RECORDS SUMMARY | 2025-07-20 19:25 | XMS_ITS | Clinical Summary ---
Author Organization [facility] [address] [place] [address] [place] [address] Phone Care Team Providers Care Deckhand Engineer Name Role Phone Lisa Santos MD Primary Care Provider [phone] Allergies Active Allergy Reactions Criticality Noted Date [...] time each day. 2 Active sodium chloride (Holden Saline) 0.65 % nasal drops 3 Drops [...] nodules 05/05/2016 Overview (08/07/2024): on imaging at [place], followed by Dr. Gaytan. CAT scan 04/23/17: [...] ascending colitis on bxy ESOPHAGOGASTRODUODENOSCOPY 09/12/2015 PROCEDURE: NM ESOPHAGOGASTRODUODENOSCOPY TRANSORAL DIAGNOSTIC; COMMENT: Normal with nl duodenal, antral and GE junction bxys BREAST BIOPSY 06/25/2018 Left PROCEDURE: BX BREAST; PERC NEEDLE CORE W/IMAG GUID; COMMENT: BENIGN FIBROADENOMATOUS CHANGES. OTHER SURGICAL HISTORY 02/2021 PROCEDURE: MAMMOGRAM, SCREENING, BOTH BREASTS Medical History Medical History Date Comments Depression with anxiety 10/06/2015 DX:Depre ssion with anxiety; COMMENT: [facility] - therapist Khushi triyohana to see her once in a week Hypercholesteremia 10/06/2015 DX:Hyperchole steremia Asthma 10/06/2015 DX:Asthma; COMME NT: Dr. Gaytan Ulcerative colitis ([facility] V24, [facility] V28) DX:Ulcerative colitis (HCC); COMMENT: Dr. Baez Ankylosing spondylitis ([facility]/ [facility] V24, [facility] V28) DX:Ankylosing spondylitis (H CC); COMMENT: Dr. Mckay Hepatic steatosis DX:Hepatic sher atosis Pelvic pain 11/24/2015 DX:Pelvic pain Iron deficiency anemia 11/25/2015 DX:Iron d eficiency anemia Vitamin D deficiency 11/25/2015 DX:Vitamin D deficiency Disc disease, degenerative, cervical 12/13/2015 DX:Disc disease, degenerative, cervical Lung nodules 05/2016 DX:Lung nodules; COMMENT: on imaging at [place], followed by Dr. Gaytan. Fracture of rib of left side 08/2017 DX: Fracture of rib of left side; COMMENT: Left 7th and 8th fracture Fracture of lumbar spine (CM S/HCC V24, CMS/[facility] V28) 08/2017 DX:Fracture of lumbar spine ([facility]); COMMENT: Macario fracture Sternal fracture 08/2017 DX:Sternal frac ture Crohn's disease ([facility]/HCC V24 , CMS/HCC V28) DX:Crohn's disease (HCC) [...] is recommended in 1 year. MAMMO LOCATION: [facility], [address] [place] [address], [address], . -------- FINAL REPORT -------- Dictated By: Roselyn Martinez Dictated Date: 09/03/2024 08:19 ET Assigned Physician: Roselyn Martinez Reviewed and Electronically Signed By: Roselyn Martinez Signed Date: 09/03/2024 08:24 ET Workstation ID: [id number] Transcribed By: Self Edit Transcribed Date: 09/03/2024 [...] is recommended in 1 year. MAMMO LOCATION: [facility], [address] [place] [address], [address], . -------- FINAL REPORT -------- Dictated By: Roselyn Martinez Dictated Date: 09/03/2024 08:19 ET Assigned Physician: Roselyn Martinez Reviewed and Electronically Signed By: Roselyn Martinez Signed Date: 09/03/2024 08:24 ET Workstation ID: [id number] Transcribed By: Self Edit Transcribed Date: 09/03/2024 08:19 ET Result [facility] Lisa Santos MD IMG BI PROCEDURES Final Result * Annual BMP Blood Test (12/06/2020) [facility] Annual BMP Blood Test abstracted [facility] Provider HEALTH MAINTENANCE Final Result * Hepatitis C Screening (12/06/2020) [facility] Hepatitis C Screening abstracted [facility] Provider HEALTH MAINTENANCE Final Result * (ABNORMAL) Lipid panel (08/21/2019) [facility] LDL/HDL Ratio 4 0 - 4 Triglycerides 186(A) 0 - 150 mg/dL Cholesterol 198 0 - 200 mg/dL HDL 56 >=40 mg/dL LDL Cholesterol 105(A) 0 - 100 mg/dL Blood Venous blood specimen / Unknown Result [facility] Provider LAB BLOOD ORDERABLES Micaela l Result * HIV Screening (01/10/2018) [facility] HIV Screening abstracted [facility] Provider HEALTH MAINTENANCE Final Result * Pap Smear (12/12/2015) [facility] Pap smear abstracted, negative [facility] Provider HEALTH MAINTENANCE Final Result * Colonoscopy [...] ID:[id number] Group ID:[id number] Type:Not on file Address: [place] [address] [address] [address] Care Teams Deckhand Engineer Relationship Specialty Start Date End Date Lisa Santos MD [address] [place] [address] PCP - General Internal Medicine 02/15/22
--- OUTSIDE RECORDS SUMMARY | 2025-07-20 19:25 | XMS_ITS | Patient Health Record ---
Author Organization [facility] Address [address] [place] [address] Care Team Providers Care Operating Room Coordinator Name Role Phone BRITNEY STOREY Primary Care Provider Unavailab Debo Seymour Unavailable [phone] Allergies Allergen (clinical drug ingredient) Drug/Non Drug [...] Orally Onc e a day Active Nystatin 078060 UNIT/GM 1 application Ex ternally Twice a [...] Status W/U Status Risk Notes Problem Menopause (485870364) Menopausal and female climacteric states (N95.1) Active confirmed Problem Postmenopausal atrophic vaginitis (18703973) Postmenopausal atrophic vaginitis (N95.2) Active confirmed Problem Age-related osteoporosis (926265828) Age-related osteoporosis without current pathological fracture (M81.0) Active confirmed Problem Polycystic ovary syndrome (disorder) (111958732) Polycystic ovarian syndrome (E28.2) Active confirmed Problem Morbid obesity (disorder) (153609510) Morbid (severe) obesity due to excess calories (E66.01) Active confirmed Problem Hyperlipidemia (40444954) Hyperlipidemia, unspecified (E78.5) Active confirmed Problem Recurrent depression (503135838) Other recurrent depressive disorders (F33.8) Active confirmed Problem Anxiety disorder (647664247) Anxiety disorder, unspecified (F41.9) Active confirmed Problem Vitreous opacities (661024555) Other vitreous opacities, unspecified eye (H43.399) Active confirmed Problem Asthma (922147645) Other asthma (J45.998) Active confirmed Problem Crohn's disease (99975322) Crohn's disease, unspecified, with unspecified complications (K50.919) Active confirmed Problem Fatty liver (968979396) Fatty (change of) liver, not elsewhere classified (K76.0) Active confirmed Problem Ankylosing spondylitis (4532721) Ankylosing spondylitis of unspecified sites in spine (M45.9) Active confirmed Problem Atrophy of vulva (486450106) Atrophy of vulva (N90.5) Active confirmed Problem Gastroesophageal reflux disease with esophagitis (disorder) (897153386) Gastro-esophageal reflux disease with esophagitis, without bleeding [...] 06/10/2025 Encounters Encounter Location Date Provider Diagnosis [facility] [address] [place] [address] 06/10/2025 Debo Patel Encounter for gynecological examination (general) (routine) without abnormal findings Z01.419 ; Encounter for screening mammogram for malignant neoplasm of breast Z12.31 ; Personal history of diseases of the skin and subcutaneous tissue Z87.2 ; Atrophy of vulva N90.5 ; Postmenopausal atrophic vaginitis N95.2 ; Morbid (severe) obesity due to excess calories E66.01 and Age-related osteoporosis without current pathological fracture M81.0 [employer] [address] [place] [address] 07/30/2024 Debo Patel Assessments Encounter Date Diagnosis [...] Details Provider Name:Debo head, 06/16/2026 02:20:00 PM, [address] [place] [address], [address], [place], [address], Insurance Providers Payer Name Payer Address Payer Phone Subscriber Number Group Number Insured Name Patient Relationship to Insured Coverage Start Date Coverage End Date [address] [address] [phone] [id number] JAIME SÁNCHEZ Self - patient is the [...]
--- OUTSIDE RECORDS SUMMARY | 2025-07-20 19:25 | XMS_ITS | Clinical Summary ---
Author Organization [facility] Address [address] [facility] [address] [place] [address] Phone Care Team Providers Care Make Ready Worker Name Role Phone Angel Mariano MD Primary Care Provider [phone] Social History Tobacco Use Types Packs/Day Years [...] topic Medical Devices Not on file Insurance [facility] MEDICARE PART A & [place] & [place] & B Care Teams Make Ready Worker Relationship Specialty Start Date End Date Angel Mariano MD [email or web address] PCP - General Family Medicine 09/11/17 Additional Source Comments The information contained in this document represents components of the legal health record. It is not the complete legal health record.[facility]
== END 2025-07-20 15:45 | disposition home or self-care (01) ==
LOC: HO.HCS 15:05
PROVIDERS: PCP Family Medicine; Visit Provider Nurse Practitioner Family
DX: R00.2 Palpitations (principal); I51.7 Cardiomegaly; E78.5 Hyperlipidemia, unspecified
CPT/HCPCS: 99213; G2211

== ENCOUNTER → 2025-07-20 15:04 | Outpatient (BNVA) | payer OTHER, SELFPAY | PROVIDERS: PCP Family Medicine; Visit Provider Nurse Practitioner Family | DX: I51.7 Cardiomegaly (principal); E78.5 Hyperlipidemia, unspecified; Z79.899 Other long term (current) drug therapy | CPT/HCPCS: 99212 ==

== ENCOUNTER → 2025-07-22 15:01 | Outpatient (REF) | payer OTHER, SELFPAY ==
--- OUTSIDE RECORDS SUMMARY | 2024-06-19 08:40 | XMS_ITS ---
Author Organization Total [employer] [facility] Address [address] [place] [address] Care Team Providers Care Patient Financial Coordinator Name Role Phone BRITNEY STOREY Primary Care Provider Unavailab Debo Seymour Unavailable [phone] REASON FOR VISIT ULTRA - BLOATING PAIN Encounters Encounter Location Date Provider Diagnosis [facility] [employer] [address] [address] 06/19/2024 Debo Patel Plan Of Treatment Next Appt Details Provider Name:Debo head, 06/16/2026 02:20:00 PM, [address] [place] [address], [address], [place], [address], Progress Notes * JAIME SÁNCHEZDOB:1970 (55 yo F)Acc No.[id number]:06/19/2024 PROGRESS NOTES Patient: JAIME CARVAJAL Appointment Provider: Jennifer aPtel M.D. :1970 A ge:54 Y S ex:Female Date:06/19/2024 Address:[address] [place], [place] [phone] Pcp:BRITNEY STOREY Subjective: * Chief Complaints: * 1 . ULTRA - BLOATING PAIN. * Medical History: Objective: * Vitals: Assessment: Plan: * Treatment: * Images: Billing Information: * Visit Code: * Procedure Codes: * Electronic signature of Mary Patel MD on 07/22/2025 at 07:07 PM EST Sign off status: Pending * Appointment Provider: Jennifer Patel M.D. Date: 08/19/2023 Generated for Jasmyn gordon/Linda/rFedrick on: 09/22/2024 07:07 PM EST
--- NOTE | ~2025-07-22 | CT_ITS ---
EXAMINATION: CT CHEST WITHOUT CONTRAST CLINICAL INFORMATION: Z87.01 - Personal history of pneumonia (recurrent) COMPARISON: February 21, 2025 TECHNIQUE: Multidetector volumetric CT imaging of the chest was done. Axial MIP volume rendering provided. Sagittal and coronal reformatted images were obtained. This CT examination was performed using dose optimization techniques as appropriate, variously including the following: *Automated exposure control *Adjustment of mA and/or kV according to patient size (this includes techniques or standardized protocols for targeted exams where dose is matched to indication/reason for exam; i.e. extremities or head) *Use of iterative reconstruction technique FINDINGS: LUNGS: Again seen is a 3 x 5 mm solid pulmonary nodule in the posterolateral left lower lobe that has been present since at least October 03, 2021. There are vague groundglass densities in the lingula, similar to the most recent prior. Lungs are stable and clear otherwise. MEDIASTINUM: Again noted is heterogeneity of thyroid gland, right greater than left. CORONARY ARTERY CALCIFICATION: Present PLEURA: There is no pleural effusion. No pleural mass or thickening. AXILLA: No lymphadenopathy. UPPER ABDOMEN: Unremarkable. OSSEOUS STRUCTURES: There are syndesmophytes across the thoracic spine and fusion between facets and spinous process tips there are stable chronic compression fractures in the mid and lower thoracic spine. There is osteopenia. CT/CT chest wo IV con IMPRESSION: No acute disease. Stable nonspecific patchy ground glass densities in the lingula. Left lower lobe 3 x 5 mm solid pulmonary nodule is stable since 2021 and requires no further follow-up. Heterogeneous thyroid gland, probable multinodular goiter, consider thyroid ultrasound. Changes in thoracic spine suggest underlying ankylosing spondylitis. Additionally, there is osteopenia with multiple chronic compression fractures. Fleischner guidelines were followed. Electronically signed by: Gilberto Brady MD 07/22/2025 04:38 PM EST
--- OUTSIDE RECORDS SUMMARY | 2025-07-22 19:07 | XMS_ITS | Patient Health Record ---
Author Organization - [facility] Address [address] [place] [address] Care Team Providers Care Service Or Work Dispatcher Name Role Phone Royajes Madelyn Unavailable [phone] PILAR QUIÑONES Unavailable [phone] TONIE QUIÑONES Unavailable [phone] Daphne Keller Unavailable Allergies Allergen (clinical drug [...] 20 days for crohns Active Polymyxin B-Trimethoprim 71056-5.1 UNIT/ML INSTILL 1 DROP in EACH EYE THREE TIMES DAILY FOR 7 TO 10 DAYS Ophthalmic; Duration: 30 days for pink eye scared to start using them Not-Taking lamoTRIgine 100 MG Take 1 tablet by mouth once a day Oral; Duration: 90 days for anxiety panic/anxiety Active Humira States not currently taking, but usually takes for chrons Not-Taking Nystatin 834862 UNIT/ML TAKE 1 TEASPOONFUL -5ml- BY MOUTH [...] Risk Notes Problem Gastroesophageal reflux disease (disorder) (284686139) Chronic GERD (K21.9) Active confirmed Problem Crohn's disease (79639268) Crohn's disease with complication, unspecified gastrointestinal tract location (K50.919) Active confirmed Problem Allergic disposition (finding) (750693117) Allergy, sequela (T78.40XS) Active confirmed Problem Chronic constipation (939790829) Chronic constipation (K59.09) Active confirmed Problem Rheumatoid arthritis (44156507) Rheumatoid arthritis, involving unspecified site, unspecified whether rheumatoid factor present (M06.9) Active confirmed Problem Obesity (734133339) Obesity (BMI 30-39.9) (E66.9) Active confirmed Problem History of fall (173796574) Risk for falls (Z91.81) Active confirmed Problem Asthma without status asthmaticus (94587150) Asthma, unspecified asthma severity, unspecified whether complicated, unspecified whether persistent (J45.909) Active confirmed Problem Hyperlipidaemia (90337106) Hyperlipidemia, unspecified hyperlipidemia type (E78.5) Active confirmed Problem Urge incontinence of urine (77751345) Urge incontinence (N39.41) Active confirmed Problem Chronic pain (52255235) Other chronic pain (G89.29) Active confirmed Vital Signs Height-cm 147.32 cm 03/30/2025 Weight-kg 86.18 kg 03/30/2025 Height 58 in 03/30/2025 Weight 190 lbs 03/30/2025 BMI 39.71 kg/m2 03/30/2025 Encounters Encounter Location Date Provider Diagnosis - [address] [address] 03/30/2025 Daphne Keller Crohn's disease with complication, [...] N39.41 and Risk for falls Z91.81 - [address] [address] 04/02/2025 TONIE QUIÑONES - [address] [address] 04/20/2025 PILAR QUIÑONES Assessments Encounter Date Diagnosis [...] stable. Would benefit from review with health swimming coach or instructor related to to diet, which can play an important role in lowering cholesterol. Discussed including heart healthy options into diet such at oatmeal, almonds, avocados, fish with high levels of omega-3 fatty acids, plant based proteins. Limiting saturated/trans fats. Will continue current medications as listed above in verified medication list and continue care with prescribing provider Member prognosis related to the multiple diagnoses [facility] 03/30/2025 Other chronic pain (ICD-10 - G89.29) [...] Member prognosis related to the multiple diagnoses [facility] 03/30/2025 Rheumatoid arthritis, involving unspecified site, unspecified [...] Would benefit from diet review with health swimming coach or instructor to identify and mitigate trigger of symptoms. Advised discussing mcc PPI use with PCP, if appropriate. Will [...] - Discussed 2 objectives based on the PROTECTIVE SIGNAL REPAIRER/RN Care Plan - Member voiced understanding for the call and the support. 25/02 line reinforced. Plan Of Treatment No Information Insurance Providers Payer Name Payer Address Payer Phone Subscriber Number Group Number Insured Name Patient Relationship to Insured Coverage Start Date Coverage End Date [facility] [address] [address] [place] [address] [id number] Josselin Harrington Self - patient is the insured 9 Medicaid of [facility] [address] [place] [address] [id number] Josselin Harrington Self - patient is the insured Medicare of [facility] [address] [place] [phone] [id number] Josselin Harrington Self - patient is the insured Medical (General) History Hospitalization History Reason Date(Month/Year) Denies past hospitalization
--- OUTSIDE RECORDS SUMMARY | 2025-07-22 19:07 | XMS_ITS | Encounter Summary ---
Author Organization [facility] Address [address] [place] [address] Phone Care Team Providers Care Freezer Person Name Role Phone Unknown, Unknown Primary Care Provider Angel Espinoza MD Primary Care Provider [phone] Encounter Details Date Type Department Care Team (Late st Contact Info) Description 09/07/2017 Transcribe Orders [facility] Specimen Processing [address] [place] [address] Angel Mariano MD [address] [place] [address] [address] [place] [address] [email or web address] Fever, unspecified fever cause (Primary Dx); Malaise [...] PM EST) Influenza A Ag Negative Negative [facility] Influenza B Ag Negative Negative [facility] Other (Nasal) 09/07/2017 12: 00 PM EST 09/07/2017 3:52 PM EST us Angel Mariano MD MICROBIOLOGY - GENERAL ORDERABLE S Final Result [facility] [address] [place] [address] documented in this encounter Visit Diagnoses Diagnosis Fever, unspecified fever cause- Primary Malaise Other malaise and fatigue documented in this encounter Care Teams Freezer Person Relationship Specialty Start Date End Date Unknown, Unknown, MD PCP - General 09/02/17 09/10/17 Angel Mariano MD [email or web address] PCP - General Family Medicine 09/11/17 documented as of this encounter Additional Source Comments The information contained in this document represents components of the legal health record. It is not the complete legal health record.[facility]
--- OUTSIDE RECORDS SUMMARY | 2025-07-22 19:07 | XMS_ITS | Encounter Summary ---
Author Organization [facility] Address [address] [place] [address] Phone Care Team Providers Care Seam Stayer Name Role Phone Unknown, Unknown Primary Care Provider Angel Espinoza MD Primary Care Provider [phone] Encounter Details Date Type Department Care Team (Late st Contact Info) Description 09/02/2017 Transcribe Orders [facility] Specimen Processing [address] [place] [address] Angel Mariano MD [address] [facility] [address] [place] [address] [email or web address] Examination (Primary Dx) Social History Tobacco Use [...] EST) SODIUM 141 133 - 146 mmol/L [facility] POTASSIUM 4.7 3.3 - 5.1 mmol/L [facility] CHLORIDE 100 96 - 108 mmol/L [facility] CO2 29 21 - 35 mmol/L [facility] BUN 12 6 - 19 mg/dL [facility] CREATININE 0.50 0.5 - 1.5 mg/dL [facility] GLUCOSE 85 70 - 99 mg/dL [facility] ALBUMIN 4.2 3.9 - 4.8 g/dL [facility] TOTAL PROTEIN 7.1 6.5 - 8.0 g/dL [facility] CALCIUM 9.5 8.4 - 10.3 mg/dL [facility] ALKALINE PHOSPHATASE 118(H) 39 - 117 U/L [facility] TOTAL BILIRUBIN 0.4 0 - 1.2 mg/dL [facility] AST 19 0 - 37 U/L [facility] ALT 23 0 - 40 U/L [facility] GLOBULIN 2.9 1 - 4.8 g/dL [facility] EGFR >60 60 - 1000 mL/min/1.7 3m2 [facility] Comment:Abnormal if <60. If patient is -Citizen Of [place], multiply the result by 1.21. ANION GAP 17 10 - 20 mmol/L [facility] Blood 09/02/2017 8:20 AM EST 09/02/2017 11:12 AM EST us Angel Mariano MD LAB BLOOD BKR ORDERABLES Final R esult Performing Organization Address City/State/RUST Co de Phone Number [facility] [address] [place] [address] * (ABNORMAL) CBC (09/02/2017 8:20 AM EST) WBC 7.10 3.40 - 11.20 K/uL [facility] RBC 4.35 3.80 - 4.80 M/uL [facility] HGB 11.0(L) 12.0 - 15.0 g/dL [facility] HCT 35.2(L) 36.0 - 46.0 % [facility] PLT 398 130 - 400 K/uL [facility] MCV 80.9 79.0 - 98.0 fL [facility] MCH 25.3(L) 27.0 - 34.8 pg [facility] MCHC 31.3(L) 31.5 - 36.0 g/dL [facility] RDW 16.2(H) 10.8 - 14.6 % [facility] MPV 9.8 9.4 - 12.4 fl [facility] NRBC 0.00 /100 WBCs [facility] ABSOLUTE NRBC 0.00 K/uL [facility] Blood 09/02/2017 8:20 AM EST 09/02/2017 11:12 AM EST us Angel Mariano MD LAB BLOOD BKR ORDERABLES Final R esult [facility] [address] [place] [address] documented in this encounter Visit Diagnoses Diagnosis Examination- Primary Unspecified examination documented in this encounter Care Teams Seam Stayer Relationship Specialty Start Date End Date Unknown, Unknown, MD PCP - General 09/02/17 09/10/17 Angel Mariano MD [email or web address] PCP - General Family Medicine 09/11/17 documented as of this encounter Additional Source Comments The information contained in this document represents components of the legal health record. It is not the complete legal health record.[facility]
--- OUTSIDE RECORDS SUMMARY | 2025-07-22 19:08 | XMS_ITS | Patient Health Record ---
Author Organization [facility] Address [address] [place] [address] Care Team Providers Care Weigher Alloy Name Role Phone Bindu Sanders MD Primary [...] Risk Notes Problem Liver function tests abnormal (985552695) Nonspecific abnormal results of liver function study [...] OF [place] [address] [place] [address] [id number] Josselin Harrington Self - patient is the insured MEDICAID OF [facility] [address] [place] [phone] [id number] Josselin Harrington Self - patient is the insured Medical (General) History Medical History History ICD Code back and hip pain following a fall hypertension depression anxiety esophageal reflux elevated lipids low vitamin D level
--- OUTSIDE RECORDS SUMMARY | 2025-07-22 19:08 | XMS_ITS | Patient Health Record ---
Author Organization [facility] Address [address] [place] [address] Care Team Providers Care Mechanical Integrity Engineer Name Role Phone BRITNEY STOREY Primary Care Provider Unavailab Debo Semyour Unavailable [phone] Allergies Allergen (clinical drug ingredient) Drug/Non Drug [...] Orally Onc e a day Active Nystatin 232278 UNIT/GM 1 application Ex ternally Twice a [...] Status W/U Status Risk Notes Problem Menopause (553007074) Menopausal and female climacteric states (N95.1) Active confirmed Problem Postmenopausal atrophic vaginitis (39051186) Postmenopausal atrophic vaginitis (N95.2) Active confirmed Problem Age-related osteoporosis (969367873) Age-related osteoporosis without current pathological fracture (M81.0) Active confirmed Problem Polycystic ovary syndrome (disorder) (542028696) Polycystic ovarian syndrome (E28.2) Active confirmed Problem Morbid obesity (disorder) (020078734) Morbid (severe) obesity due to excess calories (E66.01) Active confirmed Problem Hyperlipidemia (78751886) Hyperlipidemia, unspecified (E78.5) Active confirmed Problem Recurrent depression (333290232) Other recurrent depressive disorders (F33.8) Active confirmed Problem Anxiety disorder (743051692) Anxiety disorder, unspecified (F41.9) Active confirmed Problem Vitreous opacities (956573723) Other vitreous opacities, unspecified eye (H43.399) Active confirmed Problem Asthma (444661308) Other asthma (J45.998) Active confirmed Problem Crohn's disease (59462455) Crohn's disease, unspecified, with unspecified complications (K50.919) Active confirmed Problem Fatty liver (592018792) Fatty (change of) liver, not elsewhere classified (K76.0) Active confirmed Problem Ankylosing spondylitis (1685359) Ankylosing spondylitis of unspecified sites in spine (M45.9) Active confirmed Problem Atrophy of vulva (383402041) Atrophy of vulva (N90.5) Active confirmed Problem Gastroesophageal reflux disease with esophagitis (disorder) (796947987) Gastro-esophageal reflux disease with esophagitis, without bleeding [...] 06/10/2025 Encounters Encounter Location Date Provider Diagnosis [facility] [address] [place] [address] 06/10/2025 Debo Patel Encounter for gynecological examination (general) (routine) without abnormal findings Z01.419 ; Encounter for screening mammogram for malignant neoplasm of breast Z12.31 ; Personal history of diseases of the skin and subcutaneous tissue Z87.2 ; Atrophy of vulva N90.5 ; Postmenopausal atrophic vaginitis N95.2 ; Morbid (severe) obesity due to excess calories E66.01 and Age-related osteoporosis without current pathological fracture M81.0 [employer] [address] [place] [address] 07/30/2024 Debo Patel Assessments Encounter Date Diagnosis [...] Details Provider Name:Debo head, 06/16/2026 02:20:00 PM, [address] [place] [address], [address], [place], [address], Insurance Providers Payer Name Payer Address Payer Phone Subscriber Number Group Number Insured Name Patient Relationship to Insured Coverage Start Date Coverage End Date [address] [address] [phone] [id number] JAIME SÁNCHEZ Self - patient is the [...]
--- OUTSIDE RECORDS SUMMARY | 2025-07-22 19:08 | XMS_ITS | Data Portability ---
Author Organization [place] [facility] Address [address] [place] [address] Care Team Providers Care Paint Roller Covers Supervisor Name Role Phone [facility] Primary Care Provider [facility] [place] FAX OTHER [phone] Assessment Encounter Date Assessment Date Assessment LastModified by Organization Details LastModified Time 09/03/2021 09/03/2021 Proper Personal Protective Equipment (PPE), including gloves, eye protection and masks were donned and doffed appropriately and all equipment cleaned using approved technique with germicidal disposable wipes prior to and after care of this patient according to [facility]'s infection prevention protocols. Overview/History [...] encouraged to seek pulmonary consult through PCP [email or web address] Not available 09/03/2021 12:56:33 Plan of Treatment Reminders Order Date Submit Date Provider Last Modified By Organization Details Last Modified Time Details Appointments None recorded. Lab unlisted lab - covid-19 (novel coronavirus ) PCR 2021 [place] [facility] (Centralized Electronic Ordering - All Locations), Patient Can Go To The Location Of Their Choice, [address] 13:16:40 Referral None recorded. Procedures None recorded. Surgeries None recorded. Imaging None recorded. Medication Orders benzonatate 200 mg capsule 2021 [facility] [place], [place], [address], [place], [address], 13:01:10 Patient TargetsNo targets recorded. Patient Instructions Encounter Date Encounter Id Patient Instructions Last Modified By Organization Details Last Modified Time 09/03/2021 [id number] Inhaler Instructions Before use, you need to [...] after cleaning actually helps it work better. [email or web address] Not available 09/03/2021 11:39:16 Reason for Referral [...] Resul t repor sandee to the [facility]. This test has been autho rized by the FDA under an Emerg ency Use Autho rizat ion (EUA) for use by autho rized labor atori es. Test perfo rmed by [facility] at the [facility] of [facility] and Abhijeet gutierrez, [address] [place] [address] . CLIA ID: [id number] , CAP: [id number] 96. Medic al Direc tor: Ruma Ramirez, [...] limit ed to the [facility] at the [facility] which is certi fied under the [...] Go To The Location Of Their Choice, [id number] 09/05/2021 13:16:40 Result Notes None recorded. Procedures Surgical History Date Name Laterality Status Provider Name and Address Organization Details Recorded Time 09/03/19 22 ECG Interpretation - completed MARGARET Bazzi [address], [place], [address], [place] [facility] 09/03/2021 12:41:20 Imaging Results [...] 0.3 mg (0.3 mL) Into the muscle [id number] As Needed for anaphylaxis ; for 2 [...] Not Available Not Available No t Available [place] Saline 0.65 % nasal drops active Not [...] ICD10 Code Diagnosis IMO Codes Diagnosis Note [id number] MARGARET Bazzi [facility] - [facility] [address] [place] [address] 09/03/2021 11:37:26 09/04/2021 08:55:24 Viral upper respiratory tract infection 076299660 J06.9 Exposure t o communicable disease 369094247 Z20.822 Health Concerns Section Related Observation LastModified by Organization Detai ls LastModified Time None Recorded Concern Status LastModified by Organization Details LastModified Time None Recorded Advance Directives Directive None Recorded Payers Insurance Date Sequence Insurance Name Policy Number Policy Mckeon Covered Member ID Mckeon Member ID Guarantor Name 09/04/[address] [facility] - DOS PRIOR TO 2022 - DUAL ELIGIBLE (MEDICARE REPLACEMENT/ADV ANTAGE - HMO) Josselin Harrington [id number] Josselin Harrington 09/03/2021 1 *SELF PAY* Josselin Harrington [id number] Josselin Harrington 09/03/2021 1 MEDIC[place] B[place]: [facility] Josselin Harrington [id number] Josselin Harrington 09/03/[address] [facility] - DOS PRIOR TO 2022 - DUAL ELIGIBLE (MEDICARE REPLACEMENT/ADV ANTAGE - HMO) Josselin Harrington [id number] Josselin Harrington Notes Date Note Type Note [...] a heart attack-no smoking, no hx of CT/CVA, reports cholesterol is fine , and denies any family hx of CAD. MARGARET Bazzi [address] [place], [address], [place] [facility] 09/03/2021 12:56:49 OBGyn Episode No OBEpisode recorded.
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
--- OUTSIDE RECORDS SUMMARY | 2025-07-22 19:08 | XMS_ITS | Clinical Summary ---
Author Organization [facility] Address [address] [facility] [address] [place] [address] Phone Care Team Providers Care Opticianry Teacher Name Role Phone Angel Mariano MD Primary Care Provider Social History Tobacco Use Types Packs/Day [...] topic Medical Devices Not on file Insurance [employer] [facility] MEDICARE PART A & B Member Subscriber Plan / Payer (Ef fective 2017-Present) Name:Josselin Harrington Member ID:[id number] Relation to Subscriber:Self Name:Josselin Harrington Subscriber ID:[id number] Payer ID:[id number] Group ID:Not on file Type:Medicare Address: [employer] [facility]. [address] [facility] [place] [address] [place] PART A & B [place] & [place] B Member Subscriber Plan / Payer (Ef fective 2017-Present) Name:Juany, Josselin E Member ID:[id number] Relation to Subscriber:Self Name:Josselin Harrington Subscriber ID:[id number] Payer ID:[id number] Group ID:Not on file Type:Medicare Address: [employer] [facility] [address] [place] [address] Care Teams Opticianry Teacher Relationship Specialty Start Date End Date Angel Mariano MD [email or web address] PCP - General Family Medicine 09/11/17 Additional Source Comments The information contained in this document represents components of the legal health record. It is not the complete legal health record.[facility]
--- OUTSIDE RECORDS SUMMARY | 2025-07-22 19:08 | XMS_ITS | Encounter Summary ---
Author Organization [facility] Address [address] [place] [address] Phone Care Team Providers Care Rn Orthopaedics Name Role Phone Angel Mariano MD Primary Care Provider [phone] Encounter Details Date Type Department Care Team (Latest Contact Info) Description 09/11/2017 Transcribe Orders [facility] Specimen Processing [address] [place] [address] Angel Mariano MD [address] [facility], [address] [place] [address] [email or web address] Moderate persistent asthma, unspecified whether complicated (Primary [...] EST) WBC 3.31(L) 3.40 - 11.20 K/uL [facility] RBC 4.59 3.80 - 4.80 M/uL [facility] HGB 11.5(L) 12.0 - 15.0 g/dL [facility] HCT 35.5(L) 36.0 - 46.0 % [facility] PLT 358 130 - 400 K/uL [facility] MCV 77.3(L) 79.0 - 98.0 [facility] MCH 25.1(L) 27.0 - 34.8 pg [facility] MCHC 32.4 31.5 - 36.0 g/dL [facility] RDW 15.6(H) 10.8 - 14.6 % [facility] MPV 9.9 9.4 - 12.4 [facility] NRBC 0.00 /100 WBCs [facility] ABSOLUTE NRBC 0.00 K/uL [facility] Blood 09/11/2017 8:25 AM EST 09/11/2017 12:17 PM EST us Angel Mariano MD LAB BLOOD BKR ORDERABLES Final R esult Performing Organization Address City/[facility]/ZIP Co de Phone Number [address] [address] * (ABNORMAL) Basic metabolic panel (09/11/2017 8:25 AM EST) SODIUM 142 133 - 146 mmol/L [facility] CHLORIDE 101 96 - 108 mmol/L [facility] POTASSIUM 4.1 3.3 - 5.1 mmol/L [facility] CO2 26 21 - 35 mmol/L [facility] BUN 9 6 - 19 mg/dL [facility] CREATININE <0.50(L) 0.5 - 1.5 mg/dL [facility] GLUCOSE 96 70 - 99 mg/dL [facility] CALCIUM 9.2 8.4 - 10.3 mg/dL [facility] EGFR Test Not Performed. >60 mL/min/1.7 3m2 [facility] Comment:Abnormal if <60. If patient is -Chilean, multiply the result by 1.21. ANION GAP 19 10 - 20 mmol/L [facility] Blood 09/11/2017 8:25 AM EST 09/11/2017 12:17 PM EST us Angel Mariano MD LAB BLOOD BKR ORDERABLES Final R esult Performing Organization Address City/[facility]/ZIP Co de Phone Number [address] [address] documented in this encounter Visit Diagnoses Diagnosis Moderate persistent asthma, unspecified whether complicated- Primary Essential hypertension, benign Hyperlipidemia, unspecified hyperlipidemia type documented in this encounter Care Teams Rn Orthopaedics Relationship Specialty Start Date End Date Angel Mariano MD [email or web address] PCP - General Family Medicine 09/11/17 documented as of this encounter Additional Source Comments The information contained in this document represents components of the legal health record. It is not the complete legal health record.[facility]
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
== END ==
LOC: HO.SL 15:01
PROVIDERS: PCP Family Medicine; Visit Provider Nurse Practitioner Family
DX: R06.81 Apnea, not elsewhere classified (principal); Z87.01 Personal history of pneumonia (recurrent)
CPT/HCPCS: 71250

== ENCOUNTER → 2025-07-22 15:37 | Outpatient (BNV) | payer OTHER, SELFPAY | PROVIDERS: PCP Family Medicine; Visit Provider Radiology Diagnostic Radiology | DX: Z87.01 Personal history of pneumonia (recurrent) (principal) | CPT/HCPCS: 71250 ==

== ENCOUNTER 2025-07-26 14:15 | Outpatient (AMB) | payer OTHER, SELFPAY ==
--- OUTSIDE RECORDS SUMMARY | 2024-06-19 08:40 | XMS_ITS ---
Author Organization Total [facility] Address [address] [place] [address] Care Team Providers Care Steel Rigger Name Role Phone BRITNEY STOREY Primary Care Provider Unavailab Debo Seymuor Unavailable [phone] REASON FOR VISIT ULTRA - BLOATING PAIN Encounters Encounter Location Date Provider Diagnosis [facility] [address] [address] 06/19/2024 Debo Patel Plan Of Treatment Next Appt Details Provider Name:Debo head, 06/16/2026 02:20:00 PM, [address] [place] [address], [address], [place], [address], Progress Notes * JAIME SÁNCHEZDOB:1970 (55 yo F)Acc No.[id number]:06/19/2024 PROGRESS NOTES Patient: JAIME CARVAJAL Appointment Provider: Jennifer Patel M.D. :1970 A ge:54 Y S ex:Female Date:06/19/2024 Address:[address] [place], [place] [id number] Pcp:BRITNEY STOREY Subjective: * Chief Complaints: * 1 . ULTRA - BLOATING PAIN. * Medical History: Objective: * Vitals: Assessment: Plan: * Treatment: * Images: Billing Information: * Visit Code: * Procedure Codes: * Electronic signature of Mary Patel MD on 07/26/2025 at 05:44 PM EST Sign off status: Pending * Appointment Provider: Jennifer Patel M.D. Date: 08/19/2023 Generated for Jasmyn gordon/Linda/Fredrick on: 09/26/2024 05:44 PM EST
--- NOTE | 2025-07-26 14:20 | MHC.PC.OV ---
Vital Signs 07/26/25 14:27 Height 5 ft BMI Reason not done Patient refused/unable BP 136/74 Blood Pressure Location Lt brachial Position Sitting Respiration 16 Pulse 85 Pulse Source Pulse Oximeter Temp 98.1 F Temp Source Temporal Artery Scan Pulse Oximetry (%) 96 Oxygen Delivery Method Room Air Intake Visit Reasons: f/u pre-diabetes Intake Note: patient here for follow up on pre diabetes Associate Professor Of Geography Required: No Is last menstrual period known: No Post menopausal: No Patient : No Allergies Penicillins (PENICILLINS) Allergy (Severe, Verified 07/26/25 14:25) ANAPHYLAXIS simvastatin Allergy (Mild, Verified 07/26/25 14:25) weird feeling ibuprofen Adverse Reaction (Intermediate, Verified 07/26/25 14:25) stomach upset, irritates Chrmnn's Medication List - Last Reconciled 07/26/25 by Layton Ward MD acetaminophen ER (Tylenol 8 Hour) 1,300 mg PO Q12H PRN adalimumab (Humira(CF) Pen) 40 mg subcut Q2W albuterol sulfate 2.5 mg (3 mL) inhalation Q4-6H PRN 30 days albuterol sulfate 90 mcg/actuation 2 puffs inhalation QID PRN azelastine intranasal budesonide 32 mcg/actuation 1 spray intranasal DAILY cholecalciferol (vitamin D3) 50 mcg PO DAILY 3 months clotrimazole 1% 1 appful vaginal BEDTIME PRN clotrimazole-betamethasone 1-0.05 % 1 appl topical BID 2 weeks coenzyme Q10 (Co Q-10) 100 mg PO DAILY cranberry extract 250 mg PO DAILY cyanocobalamin (vitamin B-12) 1,000 mcg PO DAILY 30 days docusate sodium 200 mg (2 x 100 mg) PO BID epinephrine (EpiPen 2-Isma) 0.3 mg (0.3 mL) IM Q10M PRN estradiol 0.01%(0.1mg/gram) Start with application daily for 2 weeks. pea-sized to urethra 3 times a week following 30 days fluticasone propion-salmeterol 500-50 mcg/dose (Advair Diskus) 1 inh inhalation Q12H ibuprofen 400 mg PO Q8H PRN lamotrigine (Lamictal) 100 mg PO DAILY loratadine 10 mg PO DAILY 90 days lorazepam 0.5 mg PO BID PRN mesalamine 1,200 mg (3 x 400 mg) PO BID montelukast 10 mg PO DAILY nystatin 5 mL PO DAILY 10 days nystatin-triamcinolone 100,000-0.1 unit/g-% 1 appl topical TID omeprazole 40 mg (2 x 20 mg) PO DAILY rosuvastatin 40 mg PO DAILY simethicone (Gas Relief (simethicone)) 125 mg PO BID-TID PRN tizanidine 2 mg PO TID PRN 30 days Tobacco use date assessed: 07/26/25 Dental Screening Dental Screen Date: 07/26/25 Did you have a dental visit in the last 12 months?: No Did you have a dental problem in the last 6 months where you did not have access to dental care?: No Was dental information given to patient?: No HPI f/u pre-diabetes HPI Details 55 y/o female presents to f/u pre-diabetes. A1c today 07/26/25 6.0%. Pt notes upper respiratory symptoms, ?worsening GERD. Prescribed omeprazole 40mg daily. Pt has not had labs drawn yet. Hx of elevated lipids, elevated liver enzymes. HPI Comments History of Present Illness Details Documentation assistance for Layton Ward MD, was provided by Jeyson Aviles,? Development Engineer on 07/26/2025 at 3:28 PM EST. I, Dr. Ward, have read, observed, and verified documentation. ?? PFSH Medical History Tubular adenoma Chronic idiopathic constipation Crohn disease Unspecified asthma, uncomplicated Dysuria Surgical History Hx of colonoscopy History of esophagogastroduodenoscopy (EGD) No pertinent past surgical history Family History Father Suicide Mother Hypertension Diabetes Paternal Grandmother Stroke Brother In good health Sister In good health Social History Housing: Other Housing Other:: mobile home Alcohol intake: current Alcohol intake frequency: does not drink Patient Tobacco Use Status: Never used Tobacco e-Cigarette/Vaping Use: Never Used Second Hand Smoke Exposure: Yes service: No Current occupational status: disabled Current occupational exposures/hazards: No Cognitive needs: No Hearing needs: No Vision needs: No Questionnaire Thrive Questionnaire Date Thrive assessed: 08/12/24 I am a: Patient What is your living situation today?: I choose not to answer this question Within the past 12 months, did the food you bought not last and you didn't have the money to get more?: I choose not to answer this question Within the past 12 months, did you worry whether your food would run out before you got money to buy more?: I choose not to answer this question Do you have trouble paying for medicines?: I choose not to answer this question Do you have trouble getting transportation to medical appointments?: I choose not to answer this question Do you have trouble paying your heating and electricity bill?: I choose not to answer this question Do you have trouble taking care of your child, family member or friend?: I choose not to answer this question Do you have trouble with day-to-day activities such as bathing, preparing meals, shopping, managing finances, etc.?: I choose not to answer this question Are you currently unemployed and looking for a job?: I choose not to answer this question Are you interested in more education?: I choose not to answer this question Currently or been in a relationship where the following occur: No concerns reported THRIVE Score: 0 ZENY-7 AMB Questionnaire ZENY-7 Date ZENY - 7 assessed: 08/12/24 Source: Developed by Drs. Bernardino Ahumada, Peri Valencia, Gordy Victoria and colleagues, with an educational hakeem from [employer]. Review of Systems Const Denies chills, Denies fatigue, Denies fever(s), Denies headache(s) and Denies weakness ENT Denies dizziness and Denies headache(s) Card Denies dyspnea Resp Denies cough, Denies dyspnea, Denies wheezing and Denies other (shortness of breath) Musc Denies numbness and Denies tingling Neuro Denies dizziness, Denies headache(s), Denies numbness, Denies tingling and Denies weakness Psych Denies anxiety and Denies depression Endo Denies fatigue Aller/Immun Denies wheezing Physical exam (Primary Care) Vital Signs: Last Vital Signs Temp 98.1 F 12/22/25 14:27 Pulse 85 07/26/25 14:27 Resp 16 07/26/25 14:27 BP 136/74 07/26/25 14:27 Pulse Ox 96 07/26/25 14:27 Oxygen Delivery Method Room Air 07/26/25 14:27 Tobacco/Smoking Status: Tobacco use Status Tobacco use date assessed 07/26/25 07/26/25 14:33 Patient Tobacco Use Status Never used Tobacco 07/26/25 14:23 e-Cigarette/Vaping Use Never Used 07/26/25 14:23 Thrive Assessment: Date of Thrive Assessment Date Thrive assessed 08/12/24 07/26/25 14:23 Currently or been in a relationship where the following occur: No concerns reported Const General: well developed; No acute distress Nutritional Appearance: well nourished Orientation/consciousness: patient oriented x3 HENMT Head: Yes normocephalic and Yes atraumatic Eyes General: appearance normal, both eyes and all related structures Pupils: Equal, round and reactive pupils present EOM: EOMs intact bilaterally Resp Effort & Inspection: normal respiratory effort Neuro General: patient oriented x3 and gait normal Cranial nerves: Yes Equal, round and reactive pupils present Psych Affect: normal affect Results AMB Hemoglobin A1c AMB Hemoglobin A1c 6.0 % Last Edit by YUMI Bray on 07/26/25 14:35 Results Reviewed Results Reviewed: Laboratory Last Values Hgb A1c (Clinic) 6.0 % (4.0-6.0) 07/26/25 14:33 Coding Level of Care Code Est Pt Level 4 (94599) Diagnoses Pre-diabetes R73.03 Gastroesophageal reflux disease, unspecified whether esophagitis present K21.9 Esophagitis presence: esophagitis presence not specified Hyperlipidemia E78.5 Elevated liver enzymes R74.8 Assessment & Plan Assessment & Plan (1) Pre-diabetes: Code(s): R73.03 - Prediabetes Category: Medical Plan: A1c has improved from 6.4% to 6.0%. Mid pre diabetes range. Continue working at a diet lower in sugars and starches We will continue to monitor (2) GERD (gastroesophageal reflux disease): Code(s): K21.9 - Gastro-esophageal reflux disease without esophagitis Category: Medical Qualifiers: Esophagitis presence: esophagitis presence not specified Qualified Code(s): K21.9 - Gastro-esophageal reflux disease without esophagitis Plan: Patient has significant GERD and her omeprazole was recently increased. Still having some throat an abdominal discomfort Will give her a short course of famotidine that she can take at bedtime - 2 weeks maximum. Will not continue further. Hopefully this will help improve symptoms and then the increase in her omeprazole will continue control. (3) Hyperlipidemia: Code(s): E78.5 - Hyperlipidemia, unspecified Category: Medical Plan: Patient has not had her labs drawn yet. We can get them drawn prior to her next visit (4) Elevated liver enzymes: Code(s): R74.8 - Abnormal levels of other serum enzymes Category: Medical Plan: Patient has not liver enzymes drawn yet She will get these done today. Orders: Orders AMB Hemoglobin A1c Today R73.01 - Impaired fasting glucose Comprehensive Met. Panel Today R74.8 - Abnormal levels of other serum enzymes Medications: New famotidine 20 mg PO BEDTIME 14 tabs 0RF 14 days
[2025-07-26 14:27] VITALS: BP 136/74; PULSE 85; RESP 16; TEMP 36.7; O2SAT 96
--- OUTSIDE RECORDS SUMMARY | 2025-07-26 17:44 | XMS_ITS | Encounter Summary ---
Author Organization [facility] Prior to 06/05/[address] [place] [address] Care Team Providers Care Claims Clerk Name Role Phone Judy Juarez MD Primary Care Provider Judy Swanson MD Primary Care Provider Lisa Mireles MD Primary Care Provider [phone] Judy Juarez MD Primary Care Provider Lisa Mireles MD Primary Care Provider [phone] Encounter Details Date Type Department Care Team Description 08/30/2017 [facility] Medical Records [address] [place] [address] Social History Tobacco Use Types Packs/Day Years [...] on filedocumented in this encounter Care Teams Claims Clerk Relationship Specialty Start Date End Date Judy Juarez MD PCP - General Internal Medicine 01/14/17 10/23/20 Judy Juarez MD PCP - General Internal Medicine 10/24/20 11/28/20 Lisa Santos MD [address] [place] [address] [id number] PCP - General Internal Medicine 11/29/20 02/12/22 Judy Juarez MD [address] [place] [id number] PCP - General Internal Medicine 02/13/22 02/14/22 Lisa Santos MD [address] [place] [address] PCP - General Internal Medicine 02/15/22 documented as of this encounter
--- OUTSIDE RECORDS SUMMARY | 2025-07-26 17:44 | XMS_ITS | Clinical Summary ---
Author Organization [facility] Prior to 06/05/[address] [place] [address] Care Team Providers Care Parts Person Name Role Phone Lisa Santos MD Primary Care Provider [phone] Allergies Active Allergy Reactions Severity Noted Date [...] 20 capsule 2 01/18/2021 Active nystatin (MYCOSTATIN) 276564 UNIT/ML suspension Suspension (swish and swallow): Use 5mL 4 times/day; swish in the mouth and retain for as long as possible (several minutes) before swallowing 300 mL 0 02/03/2021 Active vitamin B-12 (CYANOCOBALAMIN) 1000 MCG tablet Take 1 tablet by mouth daily for 360 days. 90 tablet 1 03/16/2021 Active Saline ([place] Saline Nasal Drops) 0.65 % (Soln) Solution [...] Lung nodules 05/05/2016 Overview: on imaging at [facility], followed by Dr. Gaytan. CAT scan 04/23/17: [...] 08/05, 08/02/2021, Additional history exists Covid-19 Vaccine (3 - 2022-2 4 season) 2025 11/16/2020, 10/26/2020 INFLUENZA (#1) 2025 04/06/2020, 07/05, 04/16/2018, Additional history exists COLON CANCER SCREENING 09/12/2025 09/12/2015 DTAP/TDAP/TD (2 - Td or Tdap) 06/21/2026 06/21/2016 PNEUMOCOCCAL VACCINE FOR HIG H RISK PATIENTS (#2) 2035 03/16/2021, 05/21/2016, 02/01/2015 Care Teams Parts Person Relationship Specialty Start Date End Date Lisa Santos MD [address] [place] [address] [phone] PCP - General Internal Medicine 02/15/22
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
--- OUTSIDE RECORDS SUMMARY | 2025-07-26 17:44 | XMS_ITS | Patient Health Record ---
Author Organization [facility] Address [address] [place] [address] Care Team Providers Care Head Of Merchandise Buying Name Role Phone Bindu Sanders MD Primary Care Provider Boris Carbajal Jr Unavailable [phone] Allergies Allergen (clinical drug ingredient) Drug/Non [...] Risk Notes Problem Liver function tests abnormal ([id number]) Nonspecific abnormal results of liver function study [...] OF [place] [address] [place] [address] [id number] Josselin Harrington Self - patient is the insured MEDICAID OF [facility] [address] [place] [address] [phone] [id number] Josselin Harrington Self - patient is the insured Medical (General) History Medical History History ICD Code back and hip pain following a fall hypertension depression anxiety esophageal reflux elevated lipids low vitamin D level
--- OUTSIDE RECORDS SUMMARY | 2025-07-26 17:44 | XMS_ITS | Encounter Summary ---
Author Organization [employer] [facility] Address [address] [facility] [address] [place] [address] Phone Care Team Providers Care Banquet Server Name Role Phone Unknown, Unknown Primary Care Provider Angel Espinoza MD Primary Care Provider Encounter Details Date Type Department Care Team (Late st Contact Info) Description 09/07/2017 Transcribe Orders [facility] Specimen Processing [address] [place] [address] Angel Mariano MD [address] [place] [address] [address] [place] [address] [email or web address] Fever, unspecified fever cause (Primary Dx); Malaise [...] PM EST) Influenza A Ag Negative Negative [facility] Influenza B Ag Negative Negative [facility] Other (Nasal) 09/07/2017 12: 00 PM EST 09/07/2017 3:52 PM EST us Angel Mariano MD MICROBIOLOGY - GENERAL ORDERABLE S Final Result [facility] [address] [place] [address] documented in this encounter Visit Diagnoses Diagnosis Fever, unspecified fever cause- Primary Malaise Other malaise and fatigue documented in this encounter Care Teams Banquet Server Relationship Specialty Start Date End Date Unknown, Unknown, MD PCP - General 09/02/17 09/10/17 Angel Mariano MD [email or web address] PCP - General Family Medicine 09/11/17 documented as of this encounter Additional Source Comments The information contained in this document represents components of the legal health record. It is not the complete legal health record.[facility]
--- OUTSIDE RECORDS SUMMARY | 2025-07-26 17:44 | XMS_ITS | Encounter Summary ---
Author Organization [facility] Prior to 06/05/[address] [place] [address] Care Team Providers Care Blanching Machine Operator Name Role Phone Judy Juarez MD Primary Care Provider Judy Swanson MD Primary Care Provider Lisa Mireles MD Primary Care Provider [phone] Judy Juarez MD Primary Care Provider Lisa Mireles MD Primary Care Provider [phone] Encounter Details Date Type Department Care Team Description 04/22/2017 Transfer Records Medical Records [address] [place] [address] Abstract, Provider Social History Tobacco Use Types [...] on filedocumented in this encounter Care Teams Blanching Machine Operator Relationship Specialty Start Date End Date Judy Juarez MD PCP - General Internal Medicine 01/14/17 10/23/20 Judy Juarez MD PCP - General Internal Medicine 10/24/20 11/28/20 Lisa Santos MD [address] [place] [address] [phone] PCP - General Internal Medicine 11/29/20 02/12/22 Judy Juarez MD [address] [place] [address] PCP - General Internal Medicine 02/13/22 02/14/22 Lisa Santos MD [address] [place] [address] PCP - General Internal Medicine 02/15/22 documented as of this encounter
--- OUTSIDE RECORDS SUMMARY | 2025-07-26 17:44 | XMS_ITS | Encounter Summary ---
Author Organization [facility] Prior to 06/05/[address] [place] [address] Care Team Providers Care Air Compressor Engineer Name Role Phone Judy Juarez MD Primary Care Provider Judy Swanson MD Primary Care Provider Lisa Mireles MD Primary Care Provider [phone] Judy Juarez MD Primary Care Provider Lisa Mireles MD Primary Care Provider [phone] Reason for Visit * Reason Onset Date Comments Provider Call Back 01/14/2020 Encounter Details Date Type Department Care Team Description 01/14/2020 Telephone Gastroenterology - [address] [address] Kain Carolina PA-C Provider Call Back Social History Tobacco Use [...] filedocumented in this encounter Care Teams Air Compressor Engineer Relationship Specialty Start Date End Date Judy Juarez MD PCP - General Internal Medicine 01/14/17 10/23/20 Judy Juarez MD PCP - General Internal Medicine 10/24/20 11/28/20 Lisa Santos MD [address] [place] [address] PCP - General Internal Medicine 11/29/20 02/12/22 Judy Juarez MD [address] [place] [address] PCP - General Internal Medicine 02/13/22 02/14/22 Lisa Santos MD [address] [place] [address] PCP - General Internal Medicine 02/15/22 documented as of this encounter
--- OUTSIDE RECORDS SUMMARY | 2025-07-26 17:44 | XMS_ITS | Encounter Summary ---
Author Organization [facility] Prior to 06/05/[address] [place] [address] Care Team Providers Care Sales Operations Specialist Name Role Phone Judy Juarez MD Primary Care Provider Judy Swanson MD Primary Care Provider Lisa Mireles MD Primary Care Provider [phone] Judy Juarez MD Primary Care Provider Lisa Mireles MD Primary Care Provider [phone] Encounter Details Date Type Department Care Team Description 09/03/2018 Carpentry Instructor Report Medical Records [address] [place] [address] Gerber Vazquez MD Social History Tobacco Use [...] filedocumented in this encounter Care Teams Sales Operations Specialist Relationship Specialty Start Date End Date Judy Juarez MD PCP - General Internal Medicine 01/14/17 10/23/20 Judy Juarez MD PCP - General Internal Medicine 10/24/20 11/28/20 Lisa Santos MD [address] [place] [address] PCP - General Internal Medicine 11/29/20 02/12/22 Judy Juarez MD [address] [place] [address] PCP - General Internal Medicine 02/13/22 02/14/22 Lisa Santos MD [address] [place] [address] PCP - General Internal Medicine 02/15/22 documented as of this encounter
--- OUTSIDE RECORDS SUMMARY | 2025-07-26 17:44 | XMS_ITS | Clinical Summary ---
Author Organization [address] Address [address] [place] [address] Phone Care Team Providers Care Charge Coordinator Name Role Phone Lisa Santos MD Primary Care Provider [phone] Allergies Active Allergy Reactions Criticality Noted Date [...] time each day. 2 Active sodium chloride ([place] Saline) 0.65 % nasal drops 3 Drops [...] nodules 05/05/2016 Overview (08/07/2024): on imaging at [place], followed by Dr. Gaytan. CAT scan 04/23/17: [...] anxiety 10/06/2015 DX:Depre ssion with anxiety; COMMENT: [facility] - therapist Khushi triyohana to see her once in a week Hypercholesteremia 10/06/2015 DX:Hyperchole steremia Asthma 10/06/2015 DX:Asthma; COMME NT: Dr. Gaytan Ulcerative colitis ([facility] V24, [facility] V28) DX:Ulcerative colitis (HCC); COMMENT: Dr. Baez Ankylosing spondylitis ([facility] V24, [facility] V28) DX:Ankylosing spondylitis (H CC); COMMENT: Dr. Mckay Hepatic steatosis DX:Hepatic sher atosis Pelvic pain 11/24/2015 DX:Pelvic pain Iron deficiency anemia 11/25/2015 DX:Iron d eficiency anemia Vitamin D deficiency 11/25/2015 DX:Vitamin D deficiency Disc disease, degenerative, cervical 12/13/2015 DX:Disc disease, degenerative, cervical Lung nodules 05/2016 DX:Lung nodules; COMMENT: on imaging at [place], followed by Dr. Gaytan. Fracture of rib of left side 08/2017 DX: Fracture of rib of left side; COMMENT: Left 7th and 8th fracture Fracture of lumbar spine (CM S/HCC V24, [facility] V28) 08/2017 DX:Fracture of lumbar spine ([facility]); COMMENT: Macario fracture Sternal fracture 08/2017 DX:Sternal frac ture Crohn's disease ([facility]/HCC V24 , CMS/HCC V28) DX:Crohn's disease (HCC) [...] is recommended in 1 year. MAMMO LOCATION: [facility], [address] [place] [address], [address], . -------- FINAL REPORT -------- Dictated By: Roselyn Martinez Dictated Date: 09/03/2024 08:19 ET Assigned Physician: Roselyn Martinez Reviewed and Electronically Signed By: Roselyn Martinez Signed Date: 09/03/2024 08:24 ET Workstation ID: [id number] Transcribed By: Self Edit Transcribed Date: 09/03/2024 [...] is recommended in 1 year. MAMMO LOCATION: [facility], [address] [place] [address], [address], . -------- FINAL REPORT -------- Dictated By: Roselyn Martinez Dictated Date: 09/03/2024 08:19 ET Assigned Physician: Roselyn Martinez Reviewed and Electronically Signed By: Roselyn Martinez Signed Date: 09/03/2024 08:24 ET Workstation ID: [id number] Transcribed By: Self Edit Transcribed Date: 09/03/2024 08:19 ET Result [facility] Lisa Santos MD IMG BI PROCEDURES Final Result * Annual BMP Blood Test (12/06/2020) Pathologist [facility] Annual BMP Blood Test abstracted Result [facility] Provider HEALTH MAINTENANCE Final Result * Hepatitis C Screening (12/06/2020) [facility] Hepatitis C Screening abstracted Result [facility] Provider HEALTH MAINTENANCE Final Result * (ABNORMAL) Lipid panel (08/21/2019) [facility] LDL/HDL Ratio 4 0 - 4 Triglycerides 186(A) 0 - 150 mg/dL Cholesterol 198 0 - 200 mg/dL HDL 56 >=40 mg/dL LDL Cholesterol 105(A) 0 - 100 mg/dL Blood Venous blood specimen / Unknown [facility] Provider LAB BLOOD ORDERABLES Micaela l Result * HIV Screening (01/10/2018) [facility] HIV Screening abstracted [facility] Provider HEALTH MAINTENANCE Final Result * Pap Smear (12/12/2015) [facility] Pap smear abstracted, negative us Historical Provider [...] ID:[id number] Group ID:[id number] Type:Not on file Address: [place] [address] [address] [address] Care Teams Charge Coordinator Relationship Specialty Start Date End Date Lisa Santos MD [address] [place] [address] PCP - General Internal Medicine 02/15/22
--- OUTSIDE RECORDS SUMMARY | 2025-07-26 17:44 | XMS_ITS | Encounter Summary ---
Author Organization [facility] Prior to 06/05/[address] [place] [address] Care Team Providers Care Spring Tester Name Role Phone Judy Juarez MD Primary Care Provider Judy Swanson MD Primary Care Provider Lisa Mireles MD Primary Care Provider [phone] Judy Juarez MD Primary Care Provider Lisa Mireles MD Primary Care Provider [phone] Encounter Details Date Type Department Care Team Description 08/26/2017 [facility] Medical Records [address] [place] [address] Social History Tobacco Use Types Packs/Day Years [...] filedocumented in this encounter Care Teams Spring Tester Relationship Specialty Start Date End Date Judy Juarez MD PCP - General Internal Medicine 01/14/17 10/23/20 Judy Juarez MD PCP - General Internal Medicine 10/24/20 11/28/20 Lisa Santos MD [address] [place] [address] [phone] PCP - General Internal Medicine 11/29/20 02/12/22 Judy Juarez MD [address] [place] [address] PCP - General Internal Medicine 02/13/22 02/14/22 Lisa Santos MD [address] [place] [address] PCP - General Internal Medicine 02/15/22 documented as of this encounter
--- OUTSIDE RECORDS SUMMARY | 2025-07-26 17:44 | XMS_ITS | Encounter Summary ---
Author Organization [facility] Prior to 06/05/[address] [place] [address] Care Team Providers Care Oyster Unloader Name Role Phone Judy Juarez MD Primary Care Provider Judy Swanson MD Primary Care Provider Lisa Mireles MD Primary Care Provider [phone] Judy Juarez MD Primary Care Provider Lisa Mireles MD Primary Care Provider [phone] Encounter Details Date Type Department Care Team Description 06/20/2017 Impregnator Electrolytic Capacitors Report Medical Records [address] [place] [address] Ravi Lozano MD Social History Tobacco Use [...] on filedocumented in this encounter Care Teams Oyster Unloader Relationship Specialty Start Date End Date Judy Juarez MD PCP - General Internal Medicine 01/14/17 10/23/20 Judy Juarez MD PCP - General Internal Medicine 10/24/20 11/28/20 Lisa Santos MD [address] [place] [address] PCP - General Internal Medicine 11/29/20 02/12/22 Judy Juarez MD [address] [place] [address] PCP - General Internal Medicine 02/13/22 02/14/22 Lisa Santos MD [address] [place] [address] PCP - General Internal Medicine 02/15/22 documented as of this encounter
--- OUTSIDE RECORDS SUMMARY | 2025-07-26 17:44 | XMS_ITS | Encounter Summary ---
Author Organization [employer] [facility] Prior to 06/05/2024 Address [address] [place] [address] Care Team Providers Care Excellence Specialist Name Role Phone Judy Juarez MD Primary Care Provider Norman Jain Primary Care Provider Judy Harris MD Primary Care Provider Judy Swanson MD Primary Care Provider Lisa Mireles MD Primary Care Provider [phone] Judy Juarez MD Primary Care Provider Lisa Mireles MD Primary Care Provider [phone] Encounter Details Date Type Department Care Team Description 12/07/2015 Transfer Records Medical Records [address] [place] [address] Abstract, Provider Social History Tobacco Use Types [...] on filedocumented in this encounter Care Teams Excellence Specialist Relationship Specialty Start Date End Date Judy Juarez MD PCP - General Internal Medicine 10/12/15 12/02/16 Radhika, Pcp PCP - General Internal Medicine 12/03/16 01/13/17 Judy Juarez MD PCP - General Internal Medicine 01/14/17 10/23/20 Judy Juarez MD PCP - General Internal Medicine 10/24/20 11/28/20 Lisa Santos MD [address] [place] [address] PCP - General Internal Medicine 11/29/20 02/12/22 Judy Juarez MD [address] [place] [address] PCP - General Internal Medicine 02/13/22 02/14/22 Lisa Santos MD [address] [place] [address] PCP - General Internal Medicine 02/15/22 documented as of this encounter
--- OUTSIDE RECORDS SUMMARY | 2025-07-26 17:44 | XMS_ITS | Encounter Summary ---
Author Organization [facility] Prior to 06/05/[address] [place] [address] Care Team Providers Care Structural Mill Supervisor Name Role Phone Judy Juarez MD Primary Care Provider Norman Jain Primary Care Provider Judy Harris MD Primary Care Provider Judy Swanson MD Primary Care Provider Lisa Mireles MD Primary Care Provider [phone] Judy Juarez MD Primary Care Provider Lisa Mireles MD Primary Care Provider [phone] Encounter Details Date Type Department Care Team Description 04/03/2016 Wellness Visit Medical Records [address] [place] [address] Judy Juarez MD Social History Tobacco Use [...] on filedocumented in this encounter Care Teams Structural Mill Supervisor Relationship Specialty Start Date End Date Judy Juarez MD PCP - General Internal Medicine 10/12/15 12/02/16 Radhika, Pcp PCP - General Internal Medicine 12/03/16 01/13/17 Judy Juarez MD PCP - General Internal Medicine 01/14/17 10/23/20 Judy Juarez MD PCP - General Internal Medicine 10/24/20 11/28/20 Lisa Santos MD [address] [place] [address] PCP - General Internal Medicine 11/29/20 02/12/22 Judy Juarez MD [address] [place] [address] PCP - General Internal Medicine 02/13/22 02/14/22 Lisa Santos MD [address] [place] [address] PCP - General Internal Medicine 02/15/22 documented as of this encounter
--- OUTSIDE RECORDS SUMMARY | 2025-07-26 17:44 | XMS_ITS | Encounter Summary ---
Author Organization [facility] Address [address] [place] [address] Phone Care Team Providers Care Cotton Jammer Name Role Phone Angel Mariano MD Primary Care Provider [phone] Encounter Details Date Type Department Care Team (Latest Contact Info) Description 09/11/2017 Transcribe Orders [facility] Specimen Processing [address] [place] [address] Angel Mariano MD [address] [facility], [address] [place] [address] [email or web address] Moderate persistent asthma, [...] EST) WBC 3.31(L) 3.40 - 11.20 K/uL [facility] RBC 4.59 3.80 - 4.80 M/uL [facility] HGB 11.5(L) 12.0 - 15.0 g/dL [facility] HCT 35.5(L) 36.0 - 46.0 % [facility] PLT 358 130 - 400 K/uL [facility] MCV 77.3(L) 79.0 - 98.0 [facility] MCH 25.1(L) 27.0 - 34.8 pg [facility] MCHC 32.4 31.5 - 36.0 g/dL [facility] RDW 15.6(H) 10.8 - 14.6 % [facility] MPV 9.9 9.4 - 12.4 [facility] NRBC 0.00 /100 WBCs [facility] ABSOLUTE NRBC 0.00 K/uL [facility] Blood 09/11/2017 8:25 AM EST 09/11/2017 12:17 PM EST us Angel Mariano MD LAB BLOOD BKR ORDERABLES Final R esult Performing Organization Address City/[facility]/ZIP Co de Phone Number [address] [address] * (ABNORMAL) Basic metabolic panel (09/11/2017 8:25 AM EST) SODIUM 142 133 - 146 mmol/L [facility] CHLORIDE 101 96 - 108 mmol/L [facility] POTASSIUM 4.1 3.3 - 5.1 mmol/L [facility] CO2 26 21 - 35 mmol/L [facility] BUN 9 6 - 19 mg/dL [facility] CREATININE <0.50(L) 0.5 - 1.5 mg/dL [facility] GLUCOSE 96 70 - 99 mg/dL [facility] CALCIUM 9.2 8.4 - 10.3 mg/dL [facility] EGFR Test Not Performed. >60 mL/min/1.7 3m2 [facility] Comment:Abnormal if <60. If patient is -Grenadian, multiply the result by 1.21. ANION GAP 19 10 - 20 mmol/L [facility] Blood 09/11/2017 8:25 AM EST 09/11/2017 12:17 PM EST us Angel Mariano MD LAB BLOOD BKR ORDERABLES Final R esult Performing Organization Address City/[facility]/ZIP Co de Phone Number [address] [address] documented in this encounter Visit Diagnoses Diagnosis Moderate persistent asthma, unspecified whether complicated- Primary Essential hypertension, benign Hyperlipidemia, unspecified hyperlipidemia type documented in this encounter Care Teams Cotton Jammer Relationship Specialty Start Date End Date Angel Mariano MD [email or web address] PCP - General Family Medicine 09/11/17 documented as of this encounter Additional Source Comments The information contained in this document represents components of the legal health record. It is not the complete legal health record.[facility]
--- OUTSIDE RECORDS SUMMARY | 2025-07-26 17:44 | XMS_ITS | Patient Health Record ---
Author Organization [facility] Address [address] [place] [address] Care Team Providers Care Pharmaceutical Salesperson Name Role Phone BRITNEY STOREY Primary Care Provider Unavailab Debo Seymour Unavailable [phone] Allergies Allergen (clinical drug ingredient) Drug/Non Drug [...] Orally Onc e a day Active Nystatin 855576 UNIT/GM 1 application Ex ternally Twice a [...] Status W/U Status Risk Notes Problem Menopause (539116550) Menopausal and female climacteric states (N95.1) Active confirmed Problem Postmenopausal atrophic vaginitis (29953541) Postmenopausal atrophic vaginitis (N95.2) Active confirmed Problem Age-related osteoporosis (378626041) Age-related osteoporosis without current pathological fracture (M81.0) Active confirmed Problem Polycystic ovary syndrome (disorder) (513844132) Polycystic ovarian syndrome (E28.2) Active confirmed Problem Morbid obesity (disorder) (603245892) Morbid (severe) obesity due to excess calories (E66.01) Active confirmed Problem Hyperlipidemia (70433153) Hyperlipidemia, unspecified (E78.5) Active confirmed Problem Recurrent depression (088778923) Other recurrent depressive disorders (F33.8) Active confirmed Problem Anxiety disorder (954257669) Anxiety disorder, unspecified (F41.9) Active confirmed Problem Vitreous opacities (807353697) Other vitreous opacities, unspecified eye (H43.399) Active confirmed Problem Asthma (320323320) Other asthma (J45.998) Active confirmed Problem Crohn's disease (30693786) Crohn's disease, unspecified, with unspecified complications (K50.919) Active confirmed Problem Fatty liver (052301392) Fatty (change of) liver, not elsewhere classified (K76.0) Active confirmed Problem Ankylosing spondylitis (0383229) Ankylosing spondylitis of unspecified sites in spine (M45.9) Active confirmed Problem Atrophy of vulva (377624664) Atrophy of vulva (N90.5) Active confirmed Problem Gastroesophageal reflux disease with esophagitis (disorder) (703322323) Gastro-esophageal reflux disease with esophagitis, without bleeding [...] 06/10/2025 Encounters Encounter Location Date Provider Diagnosis [facility] [address] [place] [address] 06/10/2025 Debo Patel Encounter for gynecological examination (general) (routine) without abnormal findings Z01.419 ; Encounter for screening mammogram for malignant neoplasm of breast Z12.31 ; Personal history of diseases of the skin and subcutaneous tissue Z87.2 ; Atrophy of vulva N90.5 ; Postmenopausal atrophic vaginitis N95.2 ; Morbid (severe) obesity due to excess calories E66.01 and Age-related osteoporosis without current pathological fracture M81.0 [address] [place] [address] 07/30/2024 Debo Patel Assessments Encounter Date Diagnosis [...] Details Provider Name:Debo head, 06/16/2026 02:20:00 PM, [address] [place] [address], [address], [place], [address], Insurance Providers Payer Name Payer Address Payer Phone Subscriber Number Group Number Insured Name Patient Relationship to Insured Coverage Start Date Coverage End Date [address] [id number] JAIME SÁNCHEZ Self - patient is the [...]
--- OUTSIDE RECORDS SUMMARY | 2025-07-26 17:44 | XMS_ITS | Clinical Summary ---
Author Organization [facility] Address [address] [employer] [facility] [address] [place] [address] Phone Care Team Providers Care Shoe Salesman Name Role Phone Angel Mariano MD Primary [...] Medical Devices Not on file Insurance [facility] MEDICARE PART A & [place] & B Care Teams Shoe Salesman Relationship Specialty Start Date End Date Angel Mariano MD [email or web address] PCP - General Family Medicine 09/11/17 Additional Source Comments The information contained in this document represents components of the legal health record. It is not the complete legal health record.[facility]
--- OUTSIDE RECORDS SUMMARY | 2025-07-26 17:44 | XMS_ITS | Encounter Summary ---
Author Organization [facility] [employer] [facility] Prior to 06/05/2024 Address [address] [place] [address] Care Team Providers Care Chromosomal Disorders Counselor Name Role Phone Judy Juarez MD Primary Care Provider Judy Swanson MD Primary Care Provider Lisa Mireles MD Primary Care Provider [phone] Judy Juarez MD Primary Care Provider Lisa Mireles MD Primary Care Provider [phone] Encounter Details Date Type Department Care Team Description 08/19/2019 Automotive Parts Clerk Report Medical Records [address] [place] [address] Mary Colvin, BLOCK LAYER [address] [address] Social History Tobacco Use Types [...] on filedocumented in this encounter Care Teams Chromosomal Disorders Counselor Relationship Specialty Start Date End Date Judy Juarez MD PCP - General Internal Medicine 01/14/17 10/23/20 Judy Juarez MD PCP - General Internal Medicine 10/24/20 11/28/20 Lisa Santos MD [address] [place] [address] PCP - General Internal Medicine 11/29/20 02/12/22 Judy Juarez MD [address] [place] [address] PCP - General Internal Medicine 02/13/22 02/14/22 Lisa Santos MD [address] [place] [address] PCP - General Internal Medicine 02/15/22 documented as of this encounter
--- OUTSIDE RECORDS SUMMARY | 2025-07-26 17:44 | XMS_ITS | Encounter Summary ---
Author Organization [facility] Prior to 06/05/[address] [place] [address] Care Team Providers Care Day Care Aide Name Role Phone Judy Juarez MD Primary Care Provider Judy Swanson MD Primary Care Provider Lisa Mireles MD Primary Care Provider [phone] Judy Juarez MD Primary Care Provider Lisa Mireles MD Primary Care Provider [phone] Encounter Details Date Type Department Care Team Description 08/07/2018 Orders Only Medical Records [address] [place] [address] Dinah Ortiz PA-C Social History Tobacco Use [...] on filedocumented in this encounter Care Teams Day Care Aide Relationship Specialty Start Date End Date Judy Juarez MD PCP - General Internal Medicine 01/14/17 10/23/20 Judy Juarez MD PCP - General Internal Medicine 10/24/20 11/28/20 Lisa Santos MD [address] [place] [address] PCP - General Internal Medicine 11/29/20 02/12/22 Judy Juarez MD [address] [place] [address] PCP - General Internal Medicine 02/13/22 02/14/22 Lisa Santos MD [address] [place] [address] PCP - General Internal Medicine 02/15/22 documented as of this encounter
--- OUTSIDE RECORDS SUMMARY | 2025-07-26 17:44 | XMS_ITS | Encounter Summary ---
Author Organization [employer] [facility] Prior to 06/05/[address] [place] [address] Care Team Providers Care Film Booker Name Role Phone Judy Juarez MD Primary Care Provider Judy Swanson MD Primary Care Provider Lisa Mireles MD Primary Care Provider [phone] Judy Juarez MD Primary Care Provider Lisa Mireles MD Primary Care Provider [phone] Encounter Details Date Type Department Care Team Description 10/01/2017 Home Health Certification Medical Records [address] [place] [address] Services, [place] [facility] [address] [place] [address] Social History Tobacco Use Types Packs/Day Years [...] on filedocumented in this encounter Care Teams Film Booker Relationship Specialty Start Date End Date Judy Juarez MD PCP - General Internal Medicine 01/14/17 10/23/20 Judy Juarez MD PCP - General Internal Medicine 10/24/20 11/28/20 Lisa Santos MD [address] [place] [address] PCP - General Internal Medicine 11/29/20 02/12/22 Judy Juarez MD [address] [place] [address] PCP - General Internal Medicine 02/13/22 02/14/22 Lisa Santos MD [address] [place] [address] PCP - General Internal Medicine 02/15/22 documented as of this encounter
--- OUTSIDE RECORDS SUMMARY | 2025-07-26 17:44 | XMS_ITS | Data Portability ---
Author Organization [place] [facility] Address [address] [place] [address] Care Team Providers Care Manager Proposal Name Role Phone [facility] Primary Care Provider [phone] [employer] FA[employer] OTHER Assessment Encounter Date Assessment Date Assessment LastModified by Organization Details LastModified Time 09/03/2021 09/03/2021 Proper Personal Protective Equipment (PPE), including gloves, eye protection and masks were donned and doffed appropriately and all equipment cleaned using approved technique with germicidal disposable wipes prior to and after care of this patient according to [facility]'s infection prevention protocols. Overview/History : 51 yo [...] encouraged to seek pulmonary consult through PCP [email or web address] Not available 09/03/2021 12:56:33 Plan of Treatment Reminders Order Date Submit Date Provider Last Modified By Organization Details Last Modified Time Details Appointments None recorded. Lab unlisted lab - covid-19 (novel coronavirus ) PCR 2021 [place] [facility] (Centralized Electronic Ordering - All Locations), Patient Can Go To The Location Of Their Choice, [address] 13:16:40 Referral None recorded. Procedures None recorded. Surgeries None recorded. Imaging None recorded. Medication Orders benzonatate 200 mg capsule 2021 [facility] [place], [address], [place], [address], 13:01:10 Patient TargetsNo targets recorded. Patient Instructions Encounter Date Encounter Id Patient Instructions Last Modified By Organization Details Last Modified Time 09/03/2021 [id number] Inhaler Instructions Before use, you need to [...] after cleaning actually helps it work better. [email or web address] Not available 09/03/2021 11:39:16 Reason for Referral [...] ng. Resul t repor sandee to the [facility]. This test has been autho rized by the FDA under an Emerg ency Use Autho rizat ion (EUA) for use by autho rized labor atori es. Test perfo rmed by [facility] at the [facility] and Abhijeet gutierrez, [address] [place] [address] . CLIA ID: [id number] , CAP: [id number] 96. Medic al Direc tor: Ruma Ramirez, [...] limit ed to the [facility] or[facility] at the [facility] which is certi fied under the [...] Go To The Location Of Their Choice, [id number] 09/05/2021 13:16:40 Result Notes None recorded. Procedures Surgical History Date Name Laterality Status Provider Name and Address Organization Details Recorded Time 09/03/19 22 ECG Interpretation - completed MARGARET Bazzi [address], [place], [address], [place] [facility] 09/03/2021 12:41:20 Imaging Results [...] 0.3 mg (0.3 mL) Into the muscle [id number] As Needed for anaphylaxis ; for 2 [...] Not Available Not Available No t Available [place] 0.65 % nasal drops active Not [...] ICD10 Code Diagnosis IMO Codes Diagnosis Note [id number] MARGARET Bazzi [facility] - HOME [address] [place] [address] 09/03/2021 11:37:26 09/04/2021 08:55:24 Viral upper respiratory tract infection 420941053 J06.9 Exposure t o communicable disease 300173580 Z20.822 Health Concerns Section Related Observation LastModified by Organization Detai ls LastModified Time None Recorded Concern Status LastModified by Organization Details LastModified Time None Recorded Advance Directives Directive None Recorded Payers Insurance Date Sequence Insurance Name Policy Number Policy Mckeon Covered Member ID Mckeon Member ID Guarantor Name 09/04/2021 1 [facility] - DOS PRIOR TO 2022 - DUAL ELIGIBLE (MEDICARE REPLACEMENT/ADV ANTAGE - HMO) Josselin Harrington [id number] Josselin Harrington 09/03/2021 1 *SELF PAY* Josselin Harrington [id number] Josselin Harrington 09/03/2021 1 MEDICARE B-[place]: [facility] Josselin Harrington [id number] Josselin Harrington 09/03/2021 1 [facility] - DOS PRIOR TO 2022 - DUAL ELIGIBLE (MEDICARE REPLACEMENT/ADV ANTAGE - HMO) Josselin Harrington [id number] Josselin Harrington Notes Date Note Type Note [...] hx of CAD. MARGARET Bazzi [address] [place], [address], [place] [facility] 09/03/2021 12:56:49 OBGyn Episode No OBEpisode recorded.
--- OUTSIDE RECORDS SUMMARY | 2025-07-26 17:44 | XMS_ITS | Encounter Summary ---
Author Organization [facility] Address [address] [place] [address] Phone Care Team Providers Care Um Rn Name Role Phone Unknown, Unknown Primary Care Provider Angel Espinoza MD Primary Care Provider [phone] Encounter Details Date Type Department Care Team (Late st Contact Info) Description 09/02/2017 Transcribe Orders [facility] Specimen Processing [address] [place] [address] Angel Mariano MD [address] [facility] [address], [address] [place] [address] [email or web address] Examination (Primary Dx) Social History Tobacco Use [...] EST) SODIUM 141 133 - 146 mmol/L [facility] POTASSIUM 4.7 3.3 - 5.1 mmol/L [facility] CHLORIDE 100 96 - 108 mmol/L [facility] CO2 29 21 - 35 mmol/L [facility] BUN 12 6 - 19 mg/dL [facility] CREATININE 0.50 0.5 - 1.5 mg/dL [facility] GLUCOSE 85 70 - 99 mg/dL [facility] ALBUMIN 4.2 3.9 - 4.8 g/dL [facility] TOTAL PROTEIN 7.1 6.5 - 8.0 g/dL [facility] CALCIUM 9.5 8.4 - 10.3 mg/dL [facility] ALKALINE PHOSPHATASE 118(H) 39 - 117 U/L [facility] TOTAL BILIRUBIN 0.4 0 - 1.2 mg/dL [facility] AST 19 0 - 37 U/L [facility] ALT 23 0 - 40 U/L [facility] GLOBULIN 2.9 1 - 4.8 g/dL [facility] EGFR >60 60 - 1000 mL/min/1.7 3m2 [facility] Comment:Abnormal if <60. If patient is -Maltese, multiply the result by 1.21. ANION GAP 17 10 - 20 mmol/L [facility] Blood 09/02/2017 8:20 AM EST 09/02/2017 11:12 AM EST us Angel Mariano MD LAB BLOOD BKR ORDERABLES Final R esult Performing Organization Address City/State/[facility] Co de Phone Number [facility] [address] [place] [address] * (ABNORMAL) CBC (09/02/2017 8:20 AM EST) WBC 7.10 3.40 - 11.20 K/uL [facility] RBC 4.35 3.80 - 4.80 M/uL [facility] HGB 11.0(L) 12.0 - 15.0 g/dL [facility] HCT 35.2(L) 36.0 - 46.0 % [facility] PLT 398 130 - 400 K/uL [facility] MCV 80.9 79.0 - 98.0 fL [facility] MCH 25.3(L) 27.0 - 34.8 pg [facility] MCHC 31.3(L) 31.5 - 36.0 g/dL [facility] RDW 16.2(H) 10.8 - 14.6 % [facility] MPV 9.8 9.4 - 12.4 fl [facility] NRBC 0.00 /100 WBCs [facility] ABSOLUTE NRBC 0.00 K/uL [facility] Blood 09/02/2017 8:20 AM EST 09/02/2017 11:12 AM EST us Angel Mariano MD LAB BLOOD BKR ORDERABLES Final R esult [facility] [address] [place] [address] documented in this encounter Visit Diagnoses Diagnosis Examination- Primary Unspecified examination documented in this encounter Care Teams Um Rn Relationship Specialty Start Date End Date Unknown, Unknown, MD PCP - General 09/02/17 09/10/17 Angel Mariano MD [email or web address] PCP - General Family Medicine 09/11/17 documented as of this encounter Additional Source Comments The information contained in this document represents components of the legal health record. It is not the complete legal health record.[facility]
--- OUTSIDE RECORDS SUMMARY | 2025-07-26 17:45 | XMS_ITS | Encounter Summary ---
Author Organization [facility] Prior to 06/05/[address] [place] [address] Care Team Providers Care Trolley Car Operator Name Role Phone Judy Juarez MD Primary Care Provider Norman Jain Primary Care Provider Judy Harris MD Primary Care Provider Judy Swanson MD Primary Care Provider Lisa Mireles MD Primary Care Provider [phone] Judy Juarez MD Primary Care Provider Lisa Mireles MD Primary Care Provider [phone] Encounter Details Date Type Department Care Team Description 10/28/2015 SILK EXAMINER/[facility] Report Medical Records [address] [place] [address] Abstract, Provider Social History Tobacco Use Types [...] on filedocumented in this encounter Care Teams Trolley Car Operator Relationship Specialty Start Date End Date Judy Juarez MD PCP - General Internal Medicine 10/12/15 12/02/16 Radhika, Pcp PCP - General Internal Medicine 12/03/16 01/13/17 Judy Juarez MD PCP - General Internal Medicine 01/14/17 10/23/20 Judy Juarez MD PCP - General Internal Medicine 10/24/20 11/28/20 Lisa Santos MD [address] [place] [address] PCP - General Internal Medicine 11/29/20 02/12/22 Judy Juarez MD [address] [place] [address] PCP - General Internal Medicine 02/13/22 02/14/22 Lisa Santos MD [address] [place] [address] PCP - General Internal Medicine 02/15/22 documented as of this encounter
--- OUTSIDE RECORDS SUMMARY | 2025-07-26 17:45 | XMS_ITS | Encounter Summary ---
Author Organization [facility] Prior to 06/05/2024 Address [address] [place] [address] Care Team Providers Care International Organizer Name Role Phone Judy Juarez MD Primary Care Provider Judy Swanson MD Primary Care Provider Lisa Mireles MD Primary Care Provider [phone] Judy Juarez MD Primary Care Provider Lisa Mireles MD Primary Care Provider [phone] Reason for Referral * Radiology Services (Routine) - Closed Specialty Diagnoses / Procedures Referred By Joey hunt Referred To Contact Radiology Diagnoses Crohn's disease of colon without complication (HCC) Procedures CT ABD & PELVIS W/O CONTRAST Ruma Tinajero MD [address] [place] [address] [address] [address] [address] Referral ID Status Reason Start Date Expiration Date Visits Re quested Visits Authorized [id number] Closed 01/28/2019 04/30/2019 1 1 Reason for Visit * Reason Onset Date Comments Diarrhea 01/26/2019 Encounter Details Date Type Department Care Team Description 01/26/[address] [facility] [address] [address] Ruma Tinajero MD Diarrhea Social History [...] EDT Spoke with patient she will call [employer] to schedule CT/map * Telephone Encounter - [...] No evidence of acute abdominopelvic pathology. Narrative ASHLEE ALEMAN OTHER EXTERNAL - 02/10/2019 11:59 AM EDT [...] (HCC) documented in this encounter Care Teams International Organizer Relationship Specialty Start Date End Date Judy Juarez MD PCP - General Internal Medicine 01/14/17 10/23/20 Judy Juarez MD PCP - General Internal Medicine 10/24/20 11/28/20 Lisa aSntos MD [address] [place] [address] PCP - General Internal Medicine 11/29/20 02/12/22 Judy Juarez MD [address] [place] [address] PCP - General Internal Medicine 02/13/22 02/14/22 Lisa Santos MD [address] [place] [address] PCP - General Internal Medicine 02/15/22 documented as of this encounter
--- OUTSIDE RECORDS SUMMARY | 2025-07-26 17:45 | XMS_ITS | Encounter Summary ---
Author Organization [facility] Prior to 06/05/[address] [place] [address] Care Team Providers Care Netting Inspector Name Role Phone Lisa Santos MD Primary Care Provider [phone] Judy Juarez MD Primary Care Provider [facility] Lisa Collazo MD Primary Care Provider [phone] Reason for Visit * Reason Comments E-prescribe Rx Request Encounter Details Date Type Department Care Team Description 12/06/2020 Refill Gastroenterology [address] [place] [address] Kain Carolina PA-C E-prescribe Rx Request [...] on filedocumented in this encounter Care Teams Netting Inspector Relationship Specialty Start Date End Date Lisa Santos MD [address] [place] [address] [phone] PCP - General Internal Medicine 11/29/20 02/12/22 Judy Juarez MD [address] [place] [address] PCP - General Internal Medicine 02/13/22 02/14/22 Lisa Santos MD [address] [place] [address] PCP - General Internal Medicine 02/15/22 documented as of this encounter
--- OUTSIDE RECORDS SUMMARY | 2025-07-26 17:45 | XMS_ITS | Encounter Summary ---
Author Organization [facility] Prior to 06/05/[address] [place] [address] Care Team Providers Care Biofuels Product Manager Name Role Phone Lisa Santos MD Primary Care Provider [phone] Judy Juarez MD Primary Care Provider [facility] Lisa Santos MD Primary Care Provider [phone] Encounter Details Date Type Department Care Team Description 04/19/2021 Fuse Coiler Report Medical Records [address] [place] [address] Rick Reid MD Social History Tobacco Use [...] on filedocumented in this encounter Care Teams Biofuels Product Manager Relationship Specialty Start Date End Date Lisa Santos MD [address] [place] [address] [phone] PCP - General Internal Medicine 11/29/20 02/12/22 Judy Juarez MD [address] [place] [address] PCP - General Internal Medicine 02/13/22 02/14/22 Lisa Santos MD [address] [place] [place] [address] PCP - General Internal Medicine 02/15/22 documented as of this encounter
--- OUTSIDE RECORDS SUMMARY | 2025-07-26 17:45 | XMS_ITS | Encounter Summary ---
Author Organization [employer] [facility] Prior to 06/05/[address] [place] [address] Care Team Providers Care Drip Molder Name Role Phone Judy Juarez MD Primary Care Provider Judy Swanson MD Primary Care Provider Lisa Mireles MD Primary Care Provider [phone] Judy Juarez MD Primary Care Provider Lisa Mireles MD Primary Care Provider [phone] Encounter Details Date Type Department Care Team Description 12/11/2017 Home Health Certification Medical Records [address] [place] [address] Services, [employer] [facility] [address] [place] [address] Social History Tobacco Use Types Packs/Day Years [...] on filedocumented in this encounter Care Teams Drip Molder Relationship Specialty Start Date End Date Judy Juarez MD PCP - General Internal Medicine 01/14/17 10/23/20 Judy Juarez MD PCP - General Internal Medicine 10/24/20 11/28/20 Lisa Santos MD [address] [place] [address] PCP - General Internal Medicine 11/29/20 02/12/22 Judy Juarez MD [address] [place] [address] PCP - General Internal Medicine 02/13/22 02/14/22 Lisa Santos MD [address] [place] [address] PCP - General Internal Medicine 02/15/22 documented as of this encounter
--- OUTSIDE RECORDS SUMMARY | 2025-07-26 17:45 | XMS_ITS | Encounter Summary ---
Author Organization [facility] Prior to 06/05/[address] [place] [address] Care Team Providers Care Facilities Coordinator Name Role Phone Judy Juarez MD Primary Care Provider Judy Swanson MD Primary Care Provider Lisa Mireles MD Primary Care Provider [phone] Judy Juarez MD Primary Care Provider Lisa Mireles MD Primary Care Provider Reason for Visit * Reason Onset Date Comments refill request 08/18/2019 Encounter Details Date Type Department Care Team Description 08/18/2019 Refill Gastroenterology - [address] [address] Ruma Tinajero MD refill request Social [...] MED LIST AND IS IDENTIFIED BELOW): {MED LIST:15179) Med name: mesalamine Dosage: 1.2 g # of tablets: Local pharmacy with request for 30 -day supply Instructions: Take two daily Did you check the pharmacy information above?: YES Patients current insurance carrier: Payor: [facility] M[facility] / Plan: [facility] / Product Type: HMO [id number] documented in this encounter Plan of Treatment Not on file documented as of this encounter Visit Diagnoses Not on filedocumented in this encounter Care Teams Facilities Coordinator Relationship Specialty Start Date End Date Judy Juarez MD PCP - General Internal Medicine 01/14/17 10/23/20 Judy Juarez MD PCP - General Internal Medicine 10/24/20 11/28/20 Lisa Santos MD [address] [place] [address] PCP - General Internal Medicine 11/29/20 02/12/22 Judy Juarez MD [address] [place] [address] PCP - General Internal Medicine 02/13/22 02/14/22 Lisa Santos MD [address] [place] [address] PCP - General Internal Medicine 02/15/22 documented as of this encounter
--- OUTSIDE RECORDS SUMMARY | 2025-07-26 17:45 | XMS_ITS | Encounter Summary ---
Author Organization [facility] Prior to 06/05/[address] [place] [address] Care Team Providers Care Car Rental Manager Name Role Phone Judy Juarez MD Primary Care Provider Judy Swanson MD Primary Care Provider Lisa Mireles MD Primary Care Provider [phone] Judy Juarez MD Primary Care Provider Lisa Mireles MD Primary Care Provider [phone] Encounter Details Date Type Department Care Team Description 11/10/2017 Machine Spreader Report Medical Records [address] [place] [address] Abstract, Provider Social History Tobacco Use Types [...] filedocumented in this encounter Care Teams Car Rental Manager Relationship Specialty Start Date End Date Judy Juarez MD PCP - General Internal Medicine 01/14/17 10/23/20 Judy Juarez MD PCP - General Internal Medicine 10/24/20 11/28/20 Lisa Santos MD [address] [place] [phone] PCP - General Internal Medicine 11/29/20 02/12/22 Judy Juarez MD [address] [place] [address] PCP - General Internal Medicine 02/13/22 02/14/22 Lisa Santos MD [address] [place] [address] PCP - General Internal Medicine 02/15/22 documented as of this encounter
--- OUTSIDE RECORDS SUMMARY | 2025-07-26 17:45 | XMS_ITS | Encounter Summary ---
Author Organization [facility] Prior to 06/05/[address] [place] [address] Care Team Providers Care Surveyor Helper Name Role Phone Judy Juarez MD Primary Care Provider Judy Swanson MD Primary Care Provider Lisa Mireles MD Primary Care Provider [phone] Judy Juarez MD Primary Care Provider Lisa Mireles MD Primary Care Provider [phone] Encounter Details Date Type Department Care Team Description 01/27/2018 Respite Coordinator Report Medical Records [address] [place] [address] Ravi Lozano MD Social History Tobacco Use [...] on filedocumented in this encounter Care Teams Surveyor Helper Relationship Specialty Start Date End Date Judy Juarez MD PCP - General Internal Medicine 01/14/17 10/23/20 Judy Juarez MD PCP - General Internal Medicine 10/24/20 11/28/20 Lisa Santos MD [address] [place] [address] PCP - General Internal Medicine 11/29/20 02/12/22 Judy Juarez MD [address] [place] [address] PCP - General Internal Medicine 02/13/22 02/14/22 Lisa Santos MD [address] [place] [address] PCP - General Internal Medicine 02/15/22 documented as of this encounter
--- OUTSIDE RECORDS SUMMARY | 2025-07-26 17:45 | XMS_ITS | Encounter Summary ---
Author Organization [facility] Prior to 06/05/[address] [place] [address] Care Team Providers Care Overnight Caregiver Name Role Phone Judy Juarez MD Primary Care Provider Judy Swanson MD Primary Care Provider Lisa Mireles MD Primary Care Provider [phone] Judy Juarez MD Primary Care Provider Lisa Mireles MD Primary Care Provider [phone] Encounter Details Date Type Department Care Team Description 01/16/2018 Orders Only Medicine/Pediatrics - [address] [address] Dinah Ortiz PA-C Multiple fractures of ribs, [...] sequela documented in this encounter Care Teams Overnight Caregiver Relationship Specialty Start Date End Date Judy Juarez MD PCP - General Internal Medicine 01/14/17 10/23/20 Judy Juarez MD PCP - General Internal Medicine 10/24/20 11/28/20 Lisa Santos MD [address] [place] [address] PCP - General Internal Medicine 11/29/20 02/12/22 Judy Juarez MD [address] [place] [address] PCP - General Internal Medicine 02/13/22 02/14/22 Lisa Santos MD [address] [place] [address] PCP - General Internal Medicine 02/15/22 documented as of this encounter
--- OUTSIDE RECORDS SUMMARY | 2025-07-26 17:45 | XMS_ITS | Patient Health Record ---
Author Organization - [facility] Practice Address [address] [place] [address] Care Team Providers Care Hide Grader Name Role Phone Royajes Madelyn Unavailable [phone] PILAR QUIÑONES Unavailable [phone] TONIE QUIÑONES Unavailable [phone] Daphne Keller Unavailable Allergies Allergen (clinical drug [...] 20 days for crohns Active Polymyxin B-Trimethoprim 05042-6.1 UNIT/ML INSTILL 1 DROP in EACH EYE THREE TIMES DAILY FOR 7 TO 10 DAYS Ophthalmic; Duration: 30 days for pink eye scared to start using them Not-Taking lamoTRIgine 100 MG Take 1 tablet by mouth once a day Oral; Duration: 90 days for anxiety panic/anxiety Active Humira States not currently taking, but usually takes for chrons Not-Taking Nystatin 447578 UNIT/ML TAKE 1 TEASPOONFUL -5ml- BY MOUTH [...] W/U Status Risk Notes Problem Chronic pain (82926083) Other chronic pain (G89.29) Active confirmed Problem Urge incontinence of urine (41923928) Urge incontinence (N39.41) Active confirmed Problem Hyperlipidaemia (29056715) Hyperlipidemia, unspecified hyperlipidemia type (E78.5) Active confirmed Problem Asthma without status asthmaticus (88557646) Asthma, unspecified asthma severity, unspecified whether complicated, unspecified whether persistent (J45.909) Active confirmed Problem History of fall (417013330) Risk for falls (Z91.81) Active confirmed Problem Obesity (385999077) Obesity (BMI 30-39.9) (E66.9) Active confirmed Problem Rheumatoid arthritis (69193747) Rheumatoid arthritis, involving unspecified site, unspecified whether rheumatoid factor present (M06.9) Active confirmed Problem Chronic constipation (531918924) Chronic constipation (K59.09) Active confirmed Problem Allergic disposition (finding) (442896499) Allergy, sequela (T78.40XS) Active confirmed Problem Crohn's disease (51212019) Crohn's disease with complication, unspecified gastrointestinal tract location (K50.919) Active confirmed Problem Gastroesophageal reflux disease (disorder) (325243780) Chronic GERD (K21.9) Active confirmed Vital Signs Height-cm 147.32 cm 03/30/2025 Weight-kg 86.18 kg 03/30/2025 Height 58 in 03/30/2025 Weight 190 lbs 03/30/2025 BMI 39.71 kg/m2 03/30/2025 Encounters Encounter Location Date Provider Diagnosis - [address] [id number] 03/30/2025 Daphne Keller Crohn's disease with complication, [...] N39.41 and Risk for falls Z91.81 - [address] [address] 04/02/2025 TONIE QUIÑONES - [address] [address] 04/20/2025 PILAR QUIÑONES Assessments Encounter Date Diagnosis [...] stable. Would benefit from review with health assistant strength coach related to to diet, which can [...] Member prognosis related to the multiple diagnoses [facility] 03/30/2025 Other chronic pain [...] Member prognosis related to the multiple diagnoses [facility] 03/30/2025 Rheumatoid arthritis, involving [...] Would benefit from diet review with health assistant strength coach to identify and mitigate trigger of symptoms. Advised discussing custodial PPI use with PCP, if appropriate. Will [...] - Discussed 2 objectives based on the SPEECH LANGUAGE PATHOLOGIST PRN/RN Care Plan - Member voiced understanding for the call and the support. 25/02 line reinforced. Plan Of Treatment No Information Insurance Providers Payer Name Payer Address Payer Phone Subscriber Number Group Number Insured Name Patient Relationship to Insured Coverage Start Date [facility]age End Date [facility] [address] [address] [place] [phone] [id number] Josselin Harrington Self - patient is the insured 9 Medicaid of [facility] [address] [place] [phone] [id number] Josselin Harrington Self - patient is the insured Medicare of [facility] [address] [place] [phone] [phone] [id number] Josselin Harrington Self - patient is the insured Medical (General) History Hospitalization History Reason Date(Month/Year) Denies past hospitalization
--- OUTSIDE RECORDS SUMMARY | 2025-07-26 17:45 | XMS_ITS | Encounter Summary ---
Author Organization [facility] Prior to 06/05/[address] [place] [address] Care Team Providers Care Rod Piler Name Role Phone Judy Juarez MD Primary Care Provider Judy Swanson MD Primary Care Provider Lisa Mireles MD Primary Care Provider [phone] Judy Juarez MD Primary Care Provider Lisa Mireles MD Primary Care Provider [phone] Encounter Details Date Type Department Care Team Description 04/13/2019 Orders Only Medical Records [address] [place] [address] Epifanio Seth PA-C Social History Tobacco Use [...] on filedocumented in this encounter Care Teams Rod Piler Relationship Specialty Start Date End Date Judy Juarez MD PCP - General Internal Medicine 01/14/17 10/23/20 Judy Juarez MD PCP - General Internal Medicine 10/24/20 11/28/20 Lisa Santos MD [address] [place] [address] PCP - General Internal Medicine 11/29/20 02/12/22 Judy Juarez MD [address] [place] [address] PCP - General Internal Medicine 02/13/22 02/14/22 Lisa Santos MD [address] [place] [address] PCP - General Internal Medicine 02/15/22 documented as of this encounter
--- OUTSIDE RECORDS SUMMARY | 2025-07-26 17:45 | XMS_ITS | Encounter Summary ---
Author Organization [employer] [facility] Prior to 06/05/2024 Address [address] [place] [address] Care Team Providers Care Hospital Secretary Name Role Phone Judy Juarez MD Primary Care Provider Norman Jain Primary Care Provider Judy Harris MD Primary Care Provider Judy Swanson MD Primary Care Provider Lisa Mireles MD Primary Care Provider [phone] Judy Juarez MD Primary Care Provider Lisa Mireles MD Primary Care Provider [phone] Encounter Details Date Type Department Care Team Description 06/07/2016 [facility] Medical Records [address] [place] [id number] Abstract, Provider Social History Tobacco Use Types [...] on filedocumented in this encounter Care Teams Hospital Secretary Relationship Specialty Start Date End Date Judy Juarez MD PCP - General Internal Medicine 10/12/15 12/02/16 Radhika, Norman PCP - General Internal Medicine 12/03/16 01/13/17 Judy Juarez MD PCP - General Internal Medicine 01/14/17 10/23/20 Judy Juarez MD PCP - General Internal Medicine 10/24/20 11/28/20 Lisa Santos MD [address] [place] [address] PCP - General Internal Medicine 11/29/20 02/12/22 Judy Juarez MD [address] [place] [address] PCP - General Internal Medicine 02/13/22 02/14/22 Lisa Santos MD [address] [place] [address] PCP - General Internal Medicine 02/15/22 documented as of this encounter
--- OUTSIDE RECORDS SUMMARY | 2025-07-26 17:45 | XMS_ITS | Encounter Summary ---
Author Organization [employer] [facility] Prior to 06/05/2024 Address [address] [place] [address] Care Team Providers Care Regional Facilities Specialist Name Role Phone Judy Juarez MD Primary Care Provider Norman Jain Primary Care Provider Judy Harris MD Primary Care Provider Judy Swanson MD Primary Care Provider Lisa Mireles MD Primary Care Provider [phone] Judy Juarez MD Primary Care Provider Lisa Mireles MD Primary Care Provider [phone] Encounter Details Date Type Department Care Team Description 09/07/2016 Seaman Officer Report Medical Records [address] [place] [address] Corine Hyde, RD, LDN [address] [place] [address] Social History Tobacco Use Types Packs/Day Years [...] on filedocumented in this encounter Care Teams Regional Facilities Specialist Relationship Specialty Start Date End Date Judy Juarez MD PCP - General Internal Medicine 10/12/15 12/02/16 Radhika, Norman PCP - General Internal Medicine 12/03/16 01/13/17 Judy Juarez MD PCP - General Internal Medicine 01/14/17 10/23/20 Judy Juarez MD PCP - General Internal Medicine 10/24/20 11/28/20 Lisa Santos MD [address] [place] [address] PCP - General Internal Medicine 11/29/20 02/12/22 Judy Juarez MD [address] [place] [address] PCP - General Internal Medicine 02/13/22 02/14/22 Lisa Santos MD [address] [place] [address] PCP - General Internal Medicine 02/15/22 documented as of this encounter
--- OUTSIDE RECORDS SUMMARY | 2025-07-26 17:45 | XMS_ITS | Encounter Summary ---
Author Organization [facility] Prior to 06/05/[address] [place] [address] Care Team Providers Care Ground Service Equipment Mechanic Name Role Phone Judy Juarez MD Primary Care Provider Judy Swanson MD Primary Care Provider Lisa Mireles MD Primary Care Provider [phone] Judy Juarez MD Primary Care Provider Lisa Mireles MD Primary Care Provider [phone] Encounter Details Date Type Department Care Team Description 12/26/2018 Information Systems Professor Report Medical Records [address] [place] [address] Nedra Barkley Np Social History Tobacco Use [...] on filedocumented in this encounter Care Teams Ground Service Equipment Mechanic Relationship Specialty Start Date End Date Judy Juarez MD PCP - General Internal Medicine 01/14/17 10/23/20 Judy Juarez MD PCP - General Internal Medicine 10/24/20 11/28/20 Lisa Santos MD [address] [place] [address] PCP - General Internal Medicine 11/29/20 02/12/22 Judy Juarez MD [address] [place] [address] PCP - General Internal Medicine 02/13/22 02/14/22 Lisa Santos MD [address] [place] [address] PCP - General Internal Medicine 02/15/22 documented as of this encounter
--- OUTSIDE RECORDS SUMMARY | 2025-07-26 17:45 | XMS_ITS | Encounter Summary ---
Author Organization [facility] Prior to 06/05/2024 Address [address] [place] [address] Care Team Providers Care Archeologist Classical Name Role Phone Judy Juarez MD Primary Care Provider Norman Jain Primary Care Provider Judy Harris MD Primary Care Provider Judy Swanson MD Primary Care Provider Lisa Mireles MD Primary Care Provider [phone] Judy Juarez MD Primary Care Provider Lisa Mireles MD Primary Care Provider [phone] Encounter Details Date Type Department Care Team Description 10/25/2015 Release of Information Medical Records [address] [place] [address] Abstract, Provider Social History Tobacco Use Types [...] on filedocumented in this encounter Care Teams Archeologist Classical Relationship Specialty Start Date End Date Judy Juarez MD PCP - General Internal Medicine 10/12/15 12/02/16 Radhika, Pcp PCP - General Internal Medicine 12/03/16 01/13/17 Judy Juarez MD PCP - General Internal Medicine 01/14/17 10/23/20 Judy Juarez MD PCP - General Internal Medicine 10/24/20 11/28/20 Lisa Santos MD [address] [place] [address] PCP - General Internal Medicine 11/29/20 02/12/22 Judy Juarez MD [address] [place] [address] PCP - General Internal Medicine 02/13/22 02/14/22 Lisa Santos MD [address] [place] [address] PCP - General Internal Medicine 02/15/22 documented as of this encounter
== END 2025-07-26 15:30 | disposition home or self-care (01) ==
LOC: HO.HMCFM 14:16
PROVIDERS: PCP Family Medicine; Visit Provider Family Medicine
DX: R73.03 Prediabetes (principal); K21.9 Gastro-esophageal reflux disease without esophagitis; E78.5 Hyperlipidemia, unspecified; R74.8 Abnormal levels of other serum enzymes; R73.01 Impaired fasting glucose